=== PATIENT | male | born 1930 | race Two or more races ===

== ENCOUNTER 2017-04-05 19:45 | Inpatient (IN) | payer OTHER ==
[2017-04-05 20:47] LABS: BASO % 0.7 % (0-2.0); EOS % 2.1 % (0-4.5); HEMATOCRIT 42.9 % (35.4-49); HEMOGLOBIN 13.5 GM/dL (11.7-16.9); LYMPH % 19.6 % (8-40); MCH 24.6 pg (25.7-33.7); MCHC 31.5 g/dl (32.0-35.9); MEAN CELL VOLUME 78.1 fl (80-96); MEAN PLT VOLUME 10.2 fl (7.5-11.1); MONO % 8.7 % (3.8-10.2); NEUT % 68.9 % (42.8-82.8); PLATELET COUNT 277 K/MM3 (134-434); RBC 5.49 M/mm3 (4.00-5.60); RDW 14.5 % (11.9-15.9); WHITE BLOOD COUNT 11.7 K/mm3 (4.0-10.0)
[2017-04-05 21:04] LABS: ACTIVATED PTT 28.7 SECONDS (26.9-34.4); INR 0.97 (0.82-1.09)
[2017-04-05 21:25] LABS: ALBUMIN 3.2 g/dl (3.4-5.0); ANION GAP 7 (8-16); BILIRUBIN,TOTAL 0.2 mg/dL (0.2-1.0); BLOOD UREA NITROGEN 44 mg/dL (7-18); CALCIUM 8.5 mg/dL (8.5-10.1); CHLORIDE 103 mmol/L (98-107); CO2 27 mmol/L (21-32); CREATININE 1.8 mg/dL (0.7-1.3); GLUCOSE,RANDOM 104 mg/dL (74-106); POTASSIUM 3.9 mmol/L (3.5-5.1); SGOT/AST 35 U/L (15-37); SGPT/ALT 54 U/L (12-78); SODIUM 137 mmol/L (136-145)
[2017-04-05 21:28] LABS: ALK PHOS 72 U/L (45-117)
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
--- NOTE | 2017-04-05 22:35 | PDOC ---
Attending Attestation - HPI HPI: 04/05/17 22:48 The patient is an 86 year old male with a significant PMH of HTN, dementia, prostate cancer s/p seeding, unspecified kidney disease, and unspecified heart surgery who presents to the emergency department with 2 days of altered mental status and weakness. He also reports an episode of falling over the past 2 days. The patient is a poor historian secondary to dementia. Allergies: NKA PCP: Dr. Rae <Cesar López - Last Filed: 04/05/17 22:47> - Resident Resident Name: Slade Barry - ED Attending Attestation I have performed the following: I have examined & evaluated the patient, The case was reviewed & discussed with the resident, I agree w/resident's findings & plan, Exceptions are as noted - Physicial Exam PE: 04/06/17 05:28 *Physical Exam General Appearance: Yes: Appropriately Dressed. No: Apparent Distress, Intoxicated HEENT: positive: EOMI, LOLA, Normal ENT Inspection, Normal Voice, TMs Normal, Pharynx Normal. negative: Pale Conjunctivae, Photophobia, Scleral Icterus (R), Scleral Icterus (L) Neck: positive: Trachea midline, Normal Thyroid, Supple. negative: Tender, Rigid, Carotid bruit, Stridor, Lymphadenopathy (R), Lymphadenopathy (L), Thyromegaly Respiratory/Chest: positive: Lungs Clear, Normal Breath Sounds. negative: Chest Tender, Respiratory Distress, Accessory Muscle Use, Labored Respiration, RES, Crackles, Rales, Rhonchi, Stridor, Wheezing, Dullness Cardiovascular: positive: Regular Rhythm, Regular Rate, S1, S2. negative: Edema , JVD, Murmur, Bradycardia, Tachycardia Vascular Pulses: Dorsalis-Pedis (R): 2+, Doralis-Pedis (L): 2+ Gastrointestinal/Abdominal: positive: Normal Bowel Sounds, Flat, Soft. negative : Tender, Organomegaly, Pulsatile Mass, Increased Bowel Sounds, Decreased BS, Distended, Guarding, Rebound, Hernia, Hepatomegaly, Spleenomegaly Lymphatic: negative: Adenopathy, Tenderness Musculoskeletal: positive: Normal Inspection. negative: CVA Tenderness, Decreased Range of Motion Extremity: positive: Normal Capillary Refill, Normal Inspection, Normal Range of Motion, Pelvis Stable. negative: Tender, Pedal Edema, Swelling, Erythema Integumentary: positive: Normal Color, Dry, Warm. negative: Cyanotic, Erythema , Jaundice, Rash Neurologic: positive: editorial writer II-XII NML intact, confused. negative: EOM Palsy, Facial Droop ,Motor /Sensory Deficit - Medical Decision Making 04/06/17 05:30 pt admitted to telemetry <Billy Randhawa - Last Filed: 04/06/17 05:30>
[2017-04-05 23:21] LABS: URINE APPEARANCE TURBID; URINE BILIRUBIN NEGATIVE (NEGATIVE); URINE BLOOD 2+ (NEGATIVE); URINE COLOR DKYELLOW; URINE GLUCOSE (UA) NEGATIVE (NEGATIVE); URINE KETONE NEGATIVE (NEGATIVE); URINE NITRITE NEGATIVE (NEGATIVE); URINE UROBILINOGEN NEGATIVE mg/dL (0.2-1.0)
[2017-04-05 23:30] LABS: URINE LEUK ESTERASE 3+ (NEGATIVE); URINE PROTEIN 2+ (NEGATIVE)
[2017-04-06 00:27] LABS: YEAST MODERATE
[2017-04-06] MEDS ORDERED: CEFTRIAXONE 1 GM in DEXTROSE 5%-WATER - 50 ML IVPB ONE (00:28)
[2017-04-06] MEDS ORDERED: CEFTRIAXONE 1 GM/50 ML BAG ONE (00:42)
--- NOTE | 2017-04-06 01:55 | HP ---
CHIEF COMPLAINT: PCP: HISTORY OF PRESENT ILLNESS: This is a 86 y/o man witha past medical history of dementia, prostate cancer s/ p seeding, CABG, HTN, and unknown kidney disease. Who presents to the ED with altered mental status. Per ED record: His states that he's had increasing confusion, weakness and an episode of falling in the past two days. She states that he was admitted to [facility] for a UTI, then discharged. Patient denies chest pain, shortness of breath. Patient is confused and demonstrates short and intermediate manager memory deficits during history. Patient is not reliable. ER course was notable for: (1) Head CT- No acute intracranial hemorrhage, mass effect or midline shift. Normal Pressure Hydrocephalus (2) WBC 11.7 (3) Recent Travel: None PAST MEDICAL HISTORY: See HPi PAST SURGICAL HISTORY: CABG Social History: Smoking: Unknown Alcohol: Unknown Drugs: Methadone po Family History: Unknown Allergies No Known Allergies Allergy (Verified 04/05/17 20:02) HOME MEDICATIONS: Home Medications Medication Instructions Recorded Nebivolol HCl [Bystolic] 10 mg PO DAILY 03/18/14 Rosuvastatin Calcium [Crestor] 40 mg PO DAILY 03/18/14 Aspirin [ASA -] 81 mg PO DAILY 04/05/17 Clonazepam [Klonopin] 1 mg PO HS 04/05/17 Donepezil HCl [Aricept -] 10 mg PO DAILY 04/05/17 Escitalopram Oxalate [Lexapro -] 10 mg PO DAILY 04/05/17 Febuxostat [Uloric -] 40 mg PO DAILY 04/05/17 Hydralazine HCl [Apresoline -] 10 mg PO TID 04/05/17 Memantine HCl/Donepezil HCl 1 each PO DAILY 04/05/17 [Namzaric 14 mg-10 mg Capsule] Mirabegron [Myrbetriq] 25 mg PO DAILY 04/05/17 REVIEW OF SYSTEMS CONSTITUTIONAL: Absent: fever, chills, diaphoresis, generalized weakness, malaise, loss of appetite, weight change HEENT: Absent: rhinorrhea, nasal congestion, throat pain, throat swelling, difficulty swallowing, mouth swelling, ear pain, eye pain, visual changes, Dry mucous membranes CARDIOVASCULAR: Absent: chest pain, syncope, palpitations, irregular heart rate, lightheadedness , peripheral edema RESPIRATORY: Absent: cough, shortness of breath, dyspnea with exertion, orthopnea, wheezing, stridor, hemoptysis GASTROINTESTINAL: Absent: abdominal pain, abdominal distension, nausea, vomiting, diarrhea, constipation, melena, hematochezia GENITOURINARY: Absent: dysuria, frequency, urgency, hesitancy, hematuria, flank pain, genital pain MUSCULOSKELETAL: Absent: myalgia, arthralgia, joint swelling, back pain, neck pain SKIN: Absent: rash, itching, pallor HEMATOLOGIC/IMMUNOLOGIC: Absent: easy bleeding, easy bruising, lymphadenopathy, frequent infections ENDOCRINE: Absent: unexplained weight gain, unexplained weight loss, heat intolerance, cold intolerance NEUROLOGIC: Absent: headache, focal weakness or paresthesias, dizziness, unsteady gait, seizure, mental status changes, bladder or bowel incontinence PSYCHIATRIC: Absent: anxiety, depression, suicidal or homicidal ideation, hallucinations. PHYSICAL EXAMINATION Vital Signs - 24 hr 04/05/17 20:01 Temperature 97.7 F Pulse Rate 52 L Respiratory 18 Rate Blood Pressure 143/68 O2 Sat by Pulse 98 Oximetry (%) GENERAL: Asleep but arousable, alert to name only, in no acute distress. HEAD: Normal with no signs of trauma. EYES: Pupils equal, round and reactive to light, extraocular movements intact, sclera anicteric, conjunctiva clear. No lid lag. EARS, NOSE, THROAT: Ears normal, nares patent, oropharynx clear without exudates. Dry mucous membranes. NECK: Normal range of motion, supple without lymphadenopathy, JVD, or masses. LUNGS: Breath sounds equal, clear to auscultation bilaterally. No wheezes, and no crackles. No accessory muscle use. HEART: Regular rate and rhythm, normal S1 and S2 without murmur, rub or gallop. ABDOMEN: Soft, nontender, not distended, normoactive bowel sounds, no guarding, no rebound, no masses. No hepatomegaly or splenomegaly. MUSCULOSKELETAL: Normal range of motion at all joints. No bony deformities or tenderness. No CVA tenderness. UPPER EXTREMITIES: 2+ pulses, warm, well-perfused. No cyanosis. No clubbing. No peripheral edema. LOWER EXTREMITIES: 2+ pulses, warm, well-perfused. No calf tenderness. No peripheral edema. NEUROLOGICAL: Cranial nerves II-XII intact. Slowed speech. Gait not observed. PSYCHIATRIC: Cooperative. Good eye contact. Appropriate mood and affect. SKIN: Warm, dry, normal turgor, no rashes or lesions noted, normal capillary refill. Laboratory Results - last 24 hr 04/05/17 04/05/17 04/05/17 20:30 20:30 20:30 WBC 11.7 H RBC 5.49 Hgb 13.5 Hct 42.9 MCV 78.1 L MCH 24.6 L MCHC 31.5 L RDW 14.5 Plt Count 277 D MPV 10.2 Neutrophils % 68.9 Lymphocytes % 19.6 D Monocytes % 8.7 Eosinophils % 2.1 D Basophils % 0.7 PT with INR 11.00 INR 0.97 PTT (Actin FS) 28.7 Sodium 137 Potassium 3.9 D Chloride 103 Carbon Dioxide 27 Anion Gap 7 L BUN 44 H Creatinine 1.8 H D Creat Clearance w eGFR 36.13 Random Glucose 104 Lactic Acid Calcium 8.5 Total Bilirubin 0.2 D AST 35 D ALT 54 D Alkaline Phosphatase 72 D Creatine Kinase 120 Troponin I 0.02 Total Protein 7.0 Albumin 3.2 L D Urine Color Urine Appearance Urine pH Ur Specific Welch Urine Protein Urine Glucose (UA) Urine Ketones Urine Blood Urine Nitrite Urine Bilirubin Urine Urobilinogen Ur Leukocyte Esterase Urine WBC (Auto) Urine RBC (Auto) Urine Yeast Blood Type Antibody Screen 04/05/17 04/05/17 04/05/17 20:30 20:30 22:37 WBC RBC Hgb Hct MCV MCH MCHC RDW Plt Count MPV Neutrophils % Lymphocytes % Monocytes % Eosinophils % Basophils % PT with INR INR PTT (Actin FS) Sodium Potassium Chloride Carbon Dioxide Anion Gap BUN Creatinine Creat Clearance w eGFR Random Glucose Lactic Acid 1.0 Calcium Total Bilirubin AST ALT Alkaline Phosphatase Creatine Kinase Troponin I Total Protein Albumin Urine Color Dkyellow Urine Appearance Turbid Urine pH 5.0 Ur Specific Welch 1.011 Urine Protein 2+ H Urine Glucose (UA) Negative Urine Ketones Negative Urine Blood 2+ H Urine Nitrite Negative Urine Bilirubin Negative Urine Urobilinogen Negative Ur Leukocyte Esterase 3+ H Urine WBC (Auto) 1727 Urine RBC (Auto) 52 Urine Yeast Moderate Blood Type Cancelled Antibody Screen Cancelled Radiology Studies: Head CT- report read by Lourdes Chavez DO: No acute intracranial hemorrhage, mass effect or midline shift. Age related volume loss with moderately severe microvascular ischemic changes. Moderate ventriculomegaly with temporal horn dilatation, bowing of the corpus callosum and effacement of the cortical sulci to vertex. 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 Altered Mental Status 2. UTI 3. GARRISON 4. Unsteady Gait Admit to Telemetry for Metabolic Encephalopathy secondary to UTI vs NPH UTI- Continue Ceftriaxone, Urine Culture-pending Appreciate Neurology Consult, Neurosurgery Consult for NPH Gentle IVF Monitor INOs Repeat CBC, BMP in am Continue home meds except BP meds secondary to hypotension Fall Precautions Consider SNF or STR PT DVT Prophylaxis- SCDs, Heparin SQ Problem List - Problem (1) Acute metabolic encephalopathy Code(s): G93.41 - METABOLIC ENCEPHALOPATHY (2) Altered mental status Code(s): R41.82 - ALTERED MENTAL STATUS, UNSPECIFIED (3) GARRISON (acute kidney injury) Code(s): N17.9 - ACUTE KIDNEY FAILURE, UNSPECIFIED (4) UTI (urinary tract infection) Code(s): N39.0 - URINARY TRACT INFECTION, SITE NOT SPECIFIED (5) Unsteady gait Code(s): R26.81 - UNSTEADINESS ON FEET (6) Hypertension Code(s): I10 - ESSENTIAL (PRIMARY) HYPERTENSION (7) DVT prophylaxis Code(s): [id number] - Visit type - Emergency Visit Emergency Visit: Yes ED Registration Date: 04/05/17 Care time: The patient presented to the Emergency Department on the above date and was hospitalized for further evaluation of their emergent condition. - New Patient This patient is new to me today: Yes Date on this admission: 04/06/17 - Critical Care Critical Care patient: No
[2017-04-06] MEDS ORDERED: SODIUM CHLORIDE 1,000 ML IV SCH (02:15)
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
[2017-04-06] MEDS ORDERED: ASPIRIN 81 MG CHEWABLE TABLETS PO SCH (10:00)
[2017-04-06] MEDS ORDERED: DONEPEZIL HCL 10 MG TABLET (FP) PO SCH (10:00)
--- NOTE | 2017-04-06 10:01 | EKG ---
Test Reason : Blood Pressure : / mmHG Vent. 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
[2017-04-06 11:56] VITALS: BMI 27.1
[2017-04-06] MEDS ORDERED: DIVALPROEX SODIUM 125 MG SPRINKLE CAPS (FP) PO SCH (12:00)
--- NOTE | 2017-04-06 12:07 | PN ---
Progress Note, Physician Chief Complaint: AWAKE ALERT X 2 BEDSIDE WAS AT [facility] THEN [facility] TREATED FOR UTI THERE UNSTEADY GAIT AGGRESSIVE BEHAVIOR - Current Medication List Current Medications: Active Medications Aspirin (Asa -) 81 mg PO DAILY [facility] Last Admin: 04/06/17 09:47 Dose: 81 mg Donepezil HCl (Aricept -) 10 mg PO DAILY [facility] Last Admin: 04/06/17 09:47 Dose: 10 mg CEFTRIAXONE 1 G/50 ML PREMIX (Ceftriaxone 1 Gm-D5w Bag) 50 mls @ 100 mls/hr IVPB DAILY [facility] Sodium Chloride (Normal Saline -) 1,000 mls @ 42 mls/hr IV ASDIR [facility] Last Admin: 04/06/17 02:37 Dose: 42 mls/hr Olanzapine (Zyprexa -) 5 mg PO BID [facility] Rosuvastatin Calcium (Crestor -) 40 mg PO HS [facility] - Objective Vital Signs: Vital Signs Temperature 98.9 F 04/06/17 11:39 Pulse Rate 60 04/06/17 11:39 Respiratory Rate 20 04/06/17 11:39 Blood Pressure 148/68 04/06/17 11:39 O2 Sat by Pulse Oximetry (%) 98 04/06/17 09:00 Constitutional: Yes: Mild Distress Eyes: Yes: WNL HENT: Yes: WNL Neck: Yes: WNL Cardiovascular: Yes: Pulse Irregular Respiratory: Yes: WNL Gastrointestinal: Yes: WNL Genitourinary: Yes: Incontinence Musculoskeletal: Yes: Muscle Weakness Extremities: Yes: WNL Edema: No Peripheral Pulses WNL: Yes Integumentary: Yes: WNL Wound/Incision: Yes: Clean/Dry Neurological: Yes: Confusion, Unsteady Gait ...Motor Strength: LLE, RLE Psychiatric: Yes: Agitated Labs: CBC, BMP 04/05/17 20:30 04/05/17 20:30 INR, PTT INR 0.97 (0.82-1.09) 04/05/17 20:30 Problem List - Problems (1) GARRISON (acute kidney injury) Code(s): N17.9 - ACUTE KIDNEY FAILURE, UNSPECIFIED (2) Acute metabolic encephalopathy Code(s): G93.41 - METABOLIC ENCEPHALOPATHY (3) Altered mental status Code(s): R41.82 - ALTERED MENTAL STATUS, UNSPECIFIED (4) DVT prophylaxis Code(s): [id number] - (5) Hypertension Code(s): I10 - ESSENTIAL (PRIMARY) HYPERTENSION Qualifiers: Hypertension type: essential hypertension Qualified Code(s): I10 - Essential (primary) hypertension (6) UTI (urinary tract infection) Code(s): N39.0 - URINARY TRACT INFECTION, SITE NOT SPECIFIED Qualifiers: Urinary tract infection type: acute cystitis (7) Unsteady gait Code(s): R26.81 - UNSTEADINESS ON FEET (8) Weakness Code(s): R53.1 - WEAKNESS Assessment/Plan ID CONSULT CHRONIC VS ACUTE CYSTITIS CHECK CULTURES PSYCHIATRY EVAL WILL PHARMACY FOR EXACT MED LIST FALL PRECAUTIONS NEURO EVAL FOR NPH
[2017-04-06] MEDS ORDERED: TAMSULOSIN HCL 0.4 MG CAP.ER.24H (FP) PO ONE (12:12)
[2017-04-06] MEDS: OLANZapine 5 MG TABLET PO SCH ×2 (12:23→23:27)
--- NOTE | 2017-04-06 14:10 | CONSULT ---
Consult Consult Specialty:: Nephrology Reason for Consultation:: CKD - History of Present Illness Chief Complaint: s/p fall History of Present Illness: Pt is an 86 year old male with pmhx of dementia, CKD, PKD, prostate cancer, HTN and CAD who presents to the ER after fall and altered mental status. I saw him in an outside hospital last weekend and at that time his creatinine was about 1.7 to 1.8. He was being treated for a UTI at the time. I was called to evaluate him for elevated creatinine. He is awake and appears comfortable. His is at bedside and assisted with history. - History Source History Provided By: Family Member, Medical Record - Past Medical History Cardio/Vascular: Yes: HTN, Hyperlipdemia Renal/: Yes: Renal Inusuff Rheumatology: Yes: Gout - Past Surgical History Additional Surgical History: prostate surgery - Alcohol/Substance Use Hx Alcohol Use: No - Smoking History Smoking history: Former smoker Have you smoked in the past 12 months: No If you are a former smoker, when did you quit?: 1966 - Social History Usual Living Arrangement: With Spouse Home Medications - Allergies Allergies/Adverse Reactions: Allergies Allergy/AdvReac Type Severity Reaction Status Date / Time No Known Allergies Allergy Verified 04/05/17 20:02 - Home Medications Home Medications: Ambulatory Orders Nebivolol HCl [Bystolic] 10 mg PO DAILY 03/18/14 Rosuvastatin Calcium [Crestor] 40 mg PO DAILY 03/18/14 Aspirin [ASA -] 81 mg PO DAILY 04/05/17 Clonazepam [Klonopin] 1 mg PO HS 04/05/17 Donepezil HCl [Aricept -] 10 mg PO DAILY 04/05/17 Escitalopram Oxalate [Lexapro -] 10 mg PO DAILY 04/05/17 Febuxostat [Uloric -] 40 mg PO DAILY 04/05/17 Hydralazine HCl [Apresoline -] 10 mg PO BID 04/05/17 Memantine HCl/Donepezil HCl [Namzaric 14 mg-10 mg Capsule] 1 each PO DAILY 04/05 Mirabegron [Myrbetriq] 25 mg PO DAILY 04/05/17 Family Disease History - Family Disease History Family History: Denies Review of Systems - Review of Systems Constitutional: reports: No Symptoms Eyes: reports: No Symptoms HENT: reports: No Symptoms Neck: reports: No Symptoms Cardiovascular: reports: No Symptoms Respiratory: reports: No Symptoms Gastrointestinal: reports: No Symptoms Genitourinary: reports: No Symptoms Musculoskeletal: reports: No Symptoms Integumentary: reports: No Symptoms Neurological: reports: No Symptoms, Seizure Hematology/Lymphatic: reports: No Symptoms Physical Exam Vital Signs: Vital Signs Temperature 98.9 F 04/06/17 11:39 Pulse Rate 60 04/06/17 11:39 Respiratory Rate 20 04/06/17 11:39 Blood Pressure 148/68 04/06/17 11:39 O2 Sat by Pulse Oximetry (%) 98 04/06/17 09:00 Constitutional: Yes: Calm Eyes: Yes: Conjunctiva Clear HENT: Yes: Atraumatic Neck: Yes: Supple Cardiovascular: Yes: S1, S2 Respiratory: Yes: CTA Bilaterally Gastrointestinal: Yes: Soft Renal/: Yes: WNL Musculoskeletal: Yes: Muscle Weakness Edema: No Neurological: Yes: Oriented, Pre-Existing Deficit Labs: CBC, BMP 04/05/17 20:30 04/05/17 20:30 Laboratory Tests 04/05/17 04/05/17 04/05/17 20:30 20:30 22:37 WBC 11.7 H Hgb 13.5 Sodium 137 Potassium 3.9 D Chloride 103 BUN 44 H Creatinine 1.8 H D Urine Protein 2+ H Urine Blood 2+ H Ur Leukocyte Esterase 3+ H Imaging - Results Cat Scan: Report Reviewed Problem List - Problems (1) CKD (chronic kidney disease) Code(s): N18.9 - CHRONIC KIDNEY DISEASE, UNSPECIFIED (2) NPH (normal pressure hydrocephalus) Code(s): G91.2 - (IDIOPATHIC) NORMAL PRESSURE HYDROCEPHALUS (3) UTI (urinary tract infection) Code(s): N39.0 - URINARY TRACT INFECTION, SITE NOT SPECIFIED Qualifiers: Urinary tract infection type: acute cystitis (4) Unsteady gait Code(s): R26.81 - UNSTEADINESS ON FEET (5) Weakness Code(s): R53.1 - WEAKNESS Assessment/Plan Current Medications Generic Name Dose Route Start Last Admin Trade Name Freq PRN Reason Stop Dose Admin Aspirin 81 mg 04/06/17 10:00 04/06/17 09:47 Asa - PO 81 mg DAILY MITCH Administration Donepezil HCl 10 mg 04/06/17 10:00 04/06/17 09:47 Aricept - PO 10 mg DAILY MITCH Administration CEFTRIAXONE 1 G/50 ML PREMIX 50 mls @ 100 mls/hr 04/07/17 10:00 Ceftriaxone 1 Gm-D5w Bag IVPB DAILY MITCH Sodium Chloride 1,000 mls @ 42 mls/hr 04/06/17 02:15 04/06/17 02:37 Normal Saline - IV 42 mls/hr ASDIR MITCH Administration Metoclopramide HCl 10 mg 04/06/17 16:30 Reglan - PO ACHS MITCH Nebivolol 10 mg 04/06/17 12:15 Bystolic - PO DAILY MITCH Olanzapine 5 mg 04/06/17 11:00 04/06/17 12:23 Zyprexa - PO 5 mg BID MITCH Administration Pantoprazole Sodium 40 mg 04/06/17 12:15 Protonix - PO DAILY MITCH Rosuvastatin Calcium 20 mg 04/06/17 22:00 Crestor - PO HS MITCH Tamsulosin HCl 0.4 mg 04/07/17 08:30 Flomax - PO DAILY@0830 MITCH Impression 1. CKD 2. PKD 3. UTI 4. HTN 5. weakness 6. s/p fall 7. prostate cancer 8. dementia 9. hyperlipidemia Plan - renal function is stable - follow cultures - cont abx - repeat labs in am - cont fluids - discussed with medical attending Dr Parra
--- NOTE | 2017-04-06 14:27 | CONSULT ---
Consultation: REQUESTING PROVIDER: CONSULT REQUEST: We have been asked to medically evaluate this patient for UTI. HISTORY OF PRESENT ILLNESS: 86 y/o M with PMH CABG (2007), unspecified kidney disease, prostate CA s/p seeding, dementia, HTN, and HLD, who presented to the ED s/p fall two days ago. As per , pt was in rehab 4-5x over the last two years after repetitive falls and episodes of emesis. Most recently, on March 26, pt was with his aid after showering and was found by his lying on the floor for approximately one hour. During fall, pt had witnessed head trauma, and a RUE bruise. Son and grandson helped him up and pt was subsequently taken to [facility]. He was discharged two days ago, and fell twice more, thus bringing him into the hospital. Pt and denied any fever, chills, or changes in urinary or bowel habits during this time. However, endorsed headache, 2-3 episodes of NBNB emesis during this time, and productive yellow sputum (without blood) over the past two weeks. While in the ED, pt was afebrile, with elevated BUN/Cr 44/1.8. Head CT negative for hemorrhage but revealed moderate ventriculomegaly with temporal horn dilation consistent with normal pressure hydrocephalus. Pt received ceftriaxone in ED, and is currently continued on it. ID Team consulted for UTI. REVIEW OF SYSTEMS: CONSTITUTIONAL: Absent: fever, chills, diaphoresis, generalized weakness, malaise, loss of appetite, weight change HEENT: Absent: rhinorrhea, nasal congestion, throat pain, throat swelling, difficulty swallowing, mouth swelling, ear pain, eye pain, visual changes CARDIOVASCULAR: Absent: chest pain, syncope, palpitations, irregular heart rate, lightheadedness , peripheral edema RESPIRATORY:+ cough Absent: cough, shortness of breath, dyspnea with exertion, orthopnea, wheezing, stridor, hemoptysis GASTROINTESTINAL: Absent: abdominal pain, abdominal distension, nausea, vomiting, diarrhea, constipation, melena, hematochezia GENITOURINARY: Absent: dysuria, frequency, urgency, hesitancy, hematuria, flank pain, genital pain MUSCULOSKELETAL: Absent: myalgia, arthralgia, joint swelling, back pain, neck pain SKIN: Absent: rash, itching, pallor HEMATOLOGIC/IMMUNOLOGIC: Absent: easy bleeding, easy bruising, lymphadenopathy, frequent infections ENDOCRINE: Absent: unexplained weight gain, unexplained weight loss, heat intolerance, cold intolerance NEUROLOGIC: Absent: headache, focal weakness or paresthesias, dizziness, unsteady gait, seizure, mental status changes, bladder or bowel incontinence PSYCHIATRIC: Absent: anxiety, depression, suicidal or homicidal ideation, hallucinations. PHYSICAL EXAMINATION Vital Signs 04/06/17 11:39 Temperature 98.9 F Pulse Rate 60 Pulse Rate [ Right Apical] Respiratory 20 Rate Blood Pressure 148/68 Blood Pressure [Right Arm] O2 Sat by Pulse Oximetry (%) GENERAL: Sitting up in bed, coughing intermittently. AAOx1 (to self). In no acute distress HEAD: Normal with no signs of trauma. EYES: Pupils equal, round and reactive to light, extraocular movements intact, sclera anicteric, conjunctiva clear. NECK: Normal range of motion, supple. +L JVD LUNGS: Breath sounds equal, clear to auscultation bilaterally. No wheezes, and no crackles. No accessory muscle use. HEART: Regular rate and rhythm, normal S1 and S2 without murmur, rub or gallop. ABDOMEN: Soft, nontender, not distended, normoactive bowel sounds, no guarding, no rebound LOWER EXTREMITIES: 2+ dorsalis pedis pulses, warm, well-perfused. No calf tenderness. No peripheral edema. NEUROLOGICAL: Cranial nerves II-XII appear to be grossly intact. PSYCH: appears mildly confused Laboratory Tests 04/05/17 04/05/17 04/05/17 20:30 20:30 22:37 WBC 11.7 H Hgb 13.5 Hct 42.9 Plt Count 277 D Sodium 137 Potassium 3.9 D Chloride 103 Carbon Dioxide 27 BUN 44 H Creatinine 1.8 H D Random Glucose 104 AST 35 D ALT 54 D Alkaline Phosphatase 72 D Urine Color Dkyellow Urine Appearance Turbid Urine Protein 2+ H Urine Blood 2+ H Ur Leukocyte Esterase 3+ H Urine WBC (Auto) 1727 Microbiology -Urine cx: pending -Blood cx: pending Active Medications Generic Name Dose Route Start Last Admin Trade Name Freq PRN Reason Stop Dose Admin Aspirin 81 mg 04/06/17 10:00 04/06/17 09:47 Asa - PO 81 mg DAILY MITCH Administration Donepezil HCl 10 mg 04/06/17 10:00 04/06/17 09:47 Aricept - PO 10 mg DAILY MITCH Administration CEFTRIAXONE 1 G/50 ML PREMIX 50 mls @ 100 mls/hr 04/07/17 10:00 Ceftriaxone 1 Gm-D5w Bag IVPB DAILY MITCH Sodium Chloride 1,000 mls @ 42 mls/hr 04/06/17 02:15 04/06/17 02:37 Normal Saline - IV 42 mls/hr ASDIR MITCH Administration Metoclopramide HCl 10 mg 04/06/17 16:30 Reglan - PO ACHS MITCH Nebivolol 10 mg 04/06/17 12:15 Bystolic - PO DAILY MITCH Olanzapine 5 mg 04/06/17 11:00 04/06/17 12:23 Zyprexa - PO 5 mg BID MITCH Administration Pantoprazole Sodium 40 mg 04/06/17 12:15 Protonix - PO DAILY MITCH Rosuvastatin Calcium 20 mg 04/06/17 22:00 Crestor - PO HS MITCH Tamsulosin HCl 0.4 mg 04/07/17 08:30 Flomax - PO DAILY@0830 [facility] ASSESSMENT/PLAN: #UTI #NPH -afebrile, with leukocytosis 11.7 -UA: 2+ protein, blood, leuk esterase 3+, 1727 WBCs -received ceftriaxone 1gm IVPB in ED -continued on ceftriaxone 1 gm IVPB (Today is Day1) to empirically cover E.coli , gram -'s -f/u blood and urine cx. will adjust abx after if needed Thank you Paola Carmichael MD PGY-1 ID Team Dispo: We will continue to follow the patient. Thank you for this consultative opportunity. Visit type - Emergency Visit Emergency Visit: No - New Patient This patient is new to me today: Yes Date on this admission: 04/06/17 - Critical Care Critical Care patient: No
--- NOTE | 2017-04-06 14:39 | PN ---
Teaching Attending Note Name of Resident: Paola Carmichael ATTENDING PHYSICIAN STATEMENT I saw and evaluated the patient. I reviewed the resident's note and discussed the case with the resident. I agree with the resident's findings and plan as documented. SUBJECTIVE: alert liliam dementia- unreliable historian OBJECTIVE: Vital Signs Period Temp Pulse Resp BP Sys/Handy Pulse Ox Last 24 Hr 97.7 F-98.9 F 52-60 16-20 131-152/55-68 98-98 cor-rrr lungs clear abd soft,nt ext no edema CBC, BMP 04/05/17 20:30 04/05/17 20:30 cultures pending ASSESSMENT AND PLAN: frequent falls- r/o NPH uti- continue ceftriaxone, f/u cultures Problem List - Problems (1) UTI (urinary tract infection) Code(s): N39.0 - URINARY TRACT INFECTION, SITE NOT SPECIFIED Qualifiers: Urinary tract infection type: acute cystitis (2) NPH (normal pressure hydrocephalus) Code(s): G91.2 - (IDIOPATHIC) NORMAL PRESSURE HYDROCEPHALUS
[2017-04-06] MEDS: PANTOPRAZOLE 40 MG TABLET (FP) PO SCH (17:03)
[2017-04-06] MEDS: NEBIVOLOL 10 MG TABLET (FP) PO SCH (17:03)
[2017-04-06] MEDS: METOCLOPRAMIDE HCL 10 MG TABLET (FP) PO SCH ×2 (17:07→23:27)
--- NOTE | 2017-04-06 17:45 | CON.NEURO ---
Consult - Past Medical History Cardio/Vascular: Yes: HTN, Hyperlipdemia Renal/: Yes: Renal Inusuff Rheumatology: Yes: Gout - Past Surgical History Additional Surgical History: prostate surgery - Alcohol/Substance Use Hx Alcohol Use: No - Smoking History Smoking history: Former smoker Have you smoked in the past 12 months: No If you are a former smoker, when did you quit?: 1966 - Social History Usual Living Arrangement: With Spouse Home Medications - Allergies Allergies/Adverse Reactions: Allergies Allergy/AdvReac Type Severity Reaction Status Date / Time No Known Allergies Allergy Verified 04/05/17 20:02 - Home Medications Home Medications: Ambulatory Orders Nebivolol HCl [Bystolic] 10 mg PO DAILY 03/18/14 Rosuvastatin Calcium [Crestor] 40 mg PO DAILY 03/18/14 Aspirin [ASA -] 81 mg PO DAILY 04/05/17 Clonazepam [Klonopin] 1 mg PO HS 04/05/17 Donepezil HCl [Aricept -] 10 mg PO DAILY 04/05/17 Escitalopram Oxalate [Lexapro -] 10 mg PO DAILY 04/05/17 Febuxostat [Uloric -] 40 mg PO DAILY 04/05/17 Hydralazine HCl [Apresoline -] 10 mg PO BID 04/05/17 Memantine HCl/Donepezil HCl [Namzaric 14 mg-10 mg Capsule] 1 each PO DAILY 04/05 Mirabegron [Myrbetriq] 25 mg PO DAILY 04/05/17 Physical Exam-Neuro Vital Signs: Vital Signs Temperature 98.9 F 04/06/17 11:39 Pulse Rate 60 04/06/17 11:39 Respiratory Rate 20 04/06/17 11:39 Blood Pressure 148/68 04/06/17 11:39 O2 Sat by Pulse Oximetry (%) 98 04/06/17 09:00 Labs: CBC, BMP 04/05/17 20:30 04/05/17 20:30 INR, PTT INR 0.97 (0.82-1.09) 04/05/17 20:30 Assessment/Plan cc Possible NPH HPI 86 Year old male history of dementia, prostate cancer, cabg, htn . He was brought to hospital for increasing confusion, and agitation. Patient has been diagnosed with dmenetia and also have work up and evaluated for NPH at [facility]. He did even has spinal tap and later decided not to pursue shunting procedure. Patient is admitted for uti and on abx. He did have ct head and showed large ventricle and suspected to have NPH. PMH as above FH,ROS,SH reviewed in chart NKDA HOME MEDICATIONS: Home Medications Medication Instructions Recorded Nebivolol HCl [Bystolic] 10 mg PO DAILY 03/18/14 Rosuvastatin Calcium [Crestor] 40 mg PO DAILY 03/18/14 Aspirin [ASA -] 81 mg PO DAILY 04/05/17 Clonazepam [Klonopin] 1 mg PO HS 04/05/17 Donepezil HCl [Aricept -] 10 mg PO DAILY 04/05/17 Escitalopram Oxalate [Lexapro -] 10 mg PO DAILY 04/05/17 Febuxostat [Uloric -] 40 mg PO DAILY 04/05/17 Hydralazine HCl [Apresoline -] 10 mg PO TID 04/05/17 Memantine HCl/Donepezil HCl 1 each PO DAILY 04/05/17 [Namzaric 14 mg-10 mg Capsule] Mirabegron [Myrbetriq] 25 mg PO DAILY 04/05/17 Neurological Examination Alert and follow command, oriented x 1, not able to tell what date and where he is , he gets agitated in between conversation. CN eomi, pupils is reactive No motor weakness, moving all extremity Sensation is normal Ct reviewed and showed there is large ventricle and cortical atrophy Assessment-- 86 year old man history of Dementia with large ventricles, He has been evaluated for NPH in past and was decided not to pursue wtih shunt. In my opinion he would not benefit from shunt procedure Plan add namenda as has not been started - Psychiatriast is on case for managing agitatio, continue zyprexa - supportive treatment Thank for consult Francisco Huston MD
[2017-04-06] MEDS ORDERED: ROSUVASTATIN CA 20 MG TABLET (FP) PO SCH ×2 (22:00)
[2017-04-06] MEDS ORDERED: ROSUVASTATIN CA 10 MG TABLET (FP) ONE (23:21)
[2017-04-06] MEDS: MEMANTINE HCL 5 MG TABLET (UD) PO SCH (23:27)
[2017-04-06] MEDS: ROSUVASTATIN CA 20 MG TABLET (FP) PO SCH (23:27)
[2017-04-07] MEDS: SODIUM CHLORIDE 1,000 ML IV SCH (05:00)
[2017-04-07] MEDS: METOCLOPRAMIDE HCL 10 MG TABLET (FP) PO SCH ×4 (06:38→22:46)
[2017-04-07] MEDS ORDERED: CEFTRIAXONE 1 G/50 ML PREMIX 50 ML IVPB SCH (10:00)
[2017-04-07 10:03] LABS: ANION GAP 8 (8-16); BLOOD UREA NITROGEN 32 mg/dL (7-18); CALCIUM 8.1 mg/dL (8.5-10.1); CHLORIDE 112 mmol/L (98-107); CHOLESTEROL 98 mg/dL (50-200); CO2 22 mmol/L (21-32); CREATININE 1.6 mg/dL (0.7-1.3); GLUCOSE,RANDOM 143 mg/dL (74-106); HDL CHOLESTEROL 24 mg/dL (40-60); LDL CHOLESTEROL (ONLY SJRH) 50 mg/dL (5-100); POTASSIUM 4.4 mmol/L (3.5-5.1); SODIUM 142 mmol/L (136-145); TRIGLYCERIDES 145 mg/dL (35-160)
[2017-04-07] MEDS ORDERED: PT OWN MED DRAWER 7, Y5N ONE ×2 (10:45→22:40)
[2017-04-07] MEDS: DONEPEZIL HCL 10 MG TABLET (FP) PO SCH (10:53)
[2017-04-07] MEDS: PANTOPRAZOLE 40 MG TABLET (FP) PO SCH (10:53)
[2017-04-07] MEDS: CEFTRIAXONE 1 G/50 ML PREMIX 50 ML IVPB SCH (10:53)
[2017-04-07] MEDS: MEMANTINE HCL 5 MG TABLET (UD) PO SCH ×2 (10:54→22:46)
[2017-04-07] MEDS: TAMSULOSIN HCL 0.4 MG CAP.ER.24H (FP) PO SCH (10:54)
[2017-04-07] MEDS: ASPIRIN 81 MG CHEWABLE TABLETS PO SCH (10:54)
--- NOTE | 2017-04-07 11:35 | PN ---
Progress Note (short form) - Note Progress Note: RENAL Pt is known to me admitted now s/p fall being evaluated for possible [employer] shunt Pt denies complaints Last Vital Signs Temp Pulse Resp BP Pulse Ox 98.5 F 66 20 154/78 98 04/07/17 06:00 04/07/17 06:00 04/07/17 06:00 04/07/17 06:00 04/06/17 21:00 lungs clear cvs s1s2 rr abd soft ext no edema neuro a+o, responds toquestions CBC, BMP 04/05/17 20:30 04/07/17 09:50 Current Medications Generic Name Dose Route Start Last Admin Trade Name Marla PRN Reason Stop Dose Admin Aspirin 81 mg 04/07/17 10:00 04/07/17 10:54 Asa - PO 81 mg DAILY MITCH Administration Donepezil HCl 10 mg 04/07/17 10:00 04/07/17 10:53 Aricept - PO 10 mg DAILY MITCH Administration CEFTRIAXONE 1 G/50 ML PREMIX 50 mls @ 100 mls/hr 04/07/17 10:00 04/07/17 10: 53 Ceftriaxone 1 Gm-D5w Bag IVPB 100 mls/hr DAILY MITCH Administration Sodium Chloride 1,000 mls @ 42 mls/hr 04/06/17 21:00 04/07/17 05:00 Normal Saline - IV 42 mls/hr ASDIR MITCH Administration Memantine 5 mg 04/06/17 22:00 04/07/17 10:54 Namenda - PO 5 mg BID MITCH Administration Metoclopramide HCl 10 mg 04/06/17 16:30 04/07/17 10:54 Reglan - PO 10 mg ACHS MITCH Administration Nebivolol 10 mg 04/06/17 12:15 04/06/17 17:03 Bystolic - PO Not Given DAILY MITCH Olanzapine 5 mg 04/06/17 11:00 04/06/17 23:27 Zyprexa - PO 5 mg BID MITCH Administration Pantoprazole Sodium 40 mg 04/06/17 12:15 04/07/17 10:53 Protonix - PO 40 mg DAILY MITCH Administration Rosuvastatin Calcium 20 mg 04/06/17 22:00 04/06/17 23:27 Crestor - PO 20 mg HS MITCH Administration Tamsulosin HCl 0.4 mg 04/07/17 08:30 04/07/17 10:54 Flomax - PO 0.4 mg DAILY@0830 MITCH Administration Impression 1. CKD- stable kidney function 2. PKD 3. UTI 4. HTN 5. weakness 6. s/p fall- r/o NPH 7. prostate cancer 8. dementia 9. hyperlipidemia Plan possible [employer] shunt per neurosurgery orthostatics donepezil use with caution given rbbb? MV
[2017-04-07] MEDS: NEBIVOLOL 10 MG TABLET (FP) PO SCH (11:54)
[2017-04-07] MEDS: OLANZapine 5 MG TABLET PO SCH ×2 (11:54→22:46)
--- NOTE | 2017-04-07 12:22 | PN ---
Progress Note, Physician Chief Complaint: AWAKE MORE ALERT TODAY APPETITE GOOD - Current Medication List Current Medications: Active Medications Aspirin (Asa -) 81 mg PO DAILY [facility] Last Admin: 04/07/17 10:54 Dose: 81 mg Donepezil HCl (Aricept -) 10 mg PO DAILY [facility] Last Admin: 04/07/17 10:53 Dose: 10 mg CEFTRIAXONE 1 G/50 ML PREMIX (Ceftriaxone 1 Gm-D5w Bag) 50 mls @ 100 mls/hr IVPB DAILY [facility] Last Admin: 04/07/17 10:53 Dose: 100 mls/hr Sodium Chloride (Normal Saline -) 1,000 mls @ 42 mls/hr IV ASDIR [facility] Last Admin: 04/07/17 05:00 Dose: 42 mls/hr Memantine (Namenda -) 5 mg PO BID [facility] Last Admin: 04/07/17 10:54 Dose: 5 mg Metoclopramide HCl (Reglan -) 10 mg PO ACHS [facility] Last Admin: 04/07/17 10:54 Dose: 10 mg Nebivolol (Bystolic -) 10 mg PO DAILY [facility] Last Admin: 04/07/17 11:54 Dose: 10 mg Olanzapine (Zyprexa -) 5 mg PO BID [facility] Last Admin: 04/07/17 11:54 Dose: 5 mg Pantoprazole Sodium (Protonix -) 40 mg PO DAILY [facility] Last Admin: 04/07/17 10:53 Dose: 40 mg Rosuvastatin Calcium (Crestor -) 20 mg PO HS [facility] Last Admin: 04/06/17 23:27 Dose: 20 mg Tamsulosin HCl (Flomax -) 0.4 mg PO DAILY@0830 [facility] Last Admin: 04/07/17 10:54 Dose: 0.4 mg - Objective Vital Signs: Vital Signs Temperature 98.5 F 04/07/17 06:00 Pulse Rate 66 04/07/17 06:00 Respiratory Rate 20 04/07/17 06:00 Blood Pressure 154/78 04/07/17 06:00 O2 Sat by Pulse Oximetry (%) 98 04/06/17 21:00 Constitutional: Yes: No Distress Eyes: Yes: WNL HENT: Yes: WNL Neck: Yes: WNL Cardiovascular: Yes: Pulse Irregular Respiratory: Yes: WNL Gastrointestinal: Yes: WNL Genitourinary: Yes: WNL Musculoskeletal: Yes: Muscle Weakness Edema: No Peripheral Pulses WNL: Yes Integumentary: Yes: WNL Wound/Incision: Yes: Clean/Dry Neurological: Yes: Other ...Motor Strength: LLE, RLE Psychiatric: Yes: Other Labs: CBC, BMP 04/05/17 20:30 04/07/17 09:50 INR, PTT INR 0.97 (0.82-1.09) 04/05/17 20:30 Problem List - Problems (1) GARRISON (acute kidney injury) Code(s): N17.9 - ACUTE KIDNEY FAILURE, UNSPECIFIED (2) Acute metabolic encephalopathy Code(s): G93.41 - METABOLIC ENCEPHALOPATHY (3) Altered mental status Code(s): R41.82 - ALTERED MENTAL STATUS, UNSPECIFIED (4) DVT prophylaxis Code(s): [id number] - (5) Hypertension Code(s): I10 - ESSENTIAL (PRIMARY) HYPERTENSION Qualifiers: Hypertension type: essential hypertension Qualified Code(s): I10 - Essential (primary) hypertension (6) UTI (urinary tract infection) Code(s): N39.0 - URINARY TRACT INFECTION, SITE NOT SPECIFIED Qualifiers: Urinary tract infection type: acute cystitis (7) Unsteady gait Code(s): R26.81 - UNSTEADINESS ON FEET (8) Weakness Code(s): R53.1 - WEAKNESS Assessment/Plan ID CONSULT CHRONIC VS ACUTE CYSTITIS CHECK CULTURES PSYCHIATRY EVAL WILL PHARMACY FOR EXACT MED LIST FALL PRECAUTIONS NEURO EVAL FOR NPH
[2017-04-07] MEDS ORDERED: ROSUVASTATIN CA 10 MG TABLET (FP) ONE (22:38)
[2017-04-07] MEDS: ROSUVASTATIN CA 20 MG TABLET (FP) PO SCH (22:46)
[2017-04-08] MEDS: METOCLOPRAMIDE HCL 10 MG TABLET (FP) PO SCH ×4 (06:33→22:10)
[2017-04-08] MEDS: SODIUM CHLORIDE 1,000 ML IV SCH (06:33)
[2017-04-08] MEDS: OLANZapine 5 MG TABLET PO SCH ×2 (10:43→22:10)
[2017-04-08] MEDS: NEBIVOLOL 10 MG TABLET (FP) PO SCH (10:43)
[2017-04-08] MEDS ORDERED: PT OWN MED DRAWER 7, Y5N ONE (10:49)
[2017-04-08] MEDS: TAMSULOSIN HCL 0.4 MG CAP.ER.24H (FP) PO SCH (10:57)
[2017-04-08] MEDS: MEMANTINE HCL 5 MG TABLET (UD) PO SCH ×2 (10:57→22:10)
[2017-04-08] MEDS: PANTOPRAZOLE 40 MG TABLET (FP) PO SCH (10:57)
[2017-04-08] MEDS: DONEPEZIL HCL 10 MG TABLET (FP) PO SCH (10:57)
[2017-04-08] MEDS: CEFTRIAXONE 1 G/50 ML PREMIX 50 ML IVPB SCH (10:58)
[2017-04-08] MEDS: ASPIRIN 81 MG CHEWABLE TABLETS PO SCH (10:58)
--- NOTE | 2017-04-08 12:30 | PN ---
Progress Note, Physician Chief Complaint: AWAKE CONFUSED EATING WELL - Current Medication List Current Medications: Active Medications Aspirin (Asa -) 81 mg PO DAILY [facility] Last Admin: 04/08/17 10:58 Dose: 81 mg Donepezil HCl (Aricept -) 10 mg PO DAILY [facility] Last Admin: 04/08/17 10:57 Dose: 10 mg CEFTRIAXONE 1 G/50 ML PREMIX (Ceftriaxone 1 Gm-D5w Bag) 50 mls @ 100 mls/hr IVPB DAILY [facility] Last Admin: 04/08/17 10:58 Dose: 100 mls/hr Sodium Chloride (Normal Saline -) 1,000 mls @ 42 mls/hr IV ASDIR [facility] Last Admin: 04/08/17 06:33 Dose: 42 mls/hr Memantine (Namenda -) 5 mg PO BID [facility] Last Admin: 04/08/17 10:57 Dose: 5 mg Metoclopramide HCl (Reglan -) 10 mg PO ACHS [facility] Last Admin: 04/08/17 10:58 Dose: 10 mg Nebivolol (Bystolic -) 10 mg PO DAILY [facility] Last Admin: 04/08/17 10:43 Dose: 10 mg Olanzapine (Zyprexa -) 5 mg PO BID [facility] Last Admin: 04/08/17 10:43 Dose: 5 mg Pantoprazole Sodium (Protonix -) 40 mg PO DAILY [facility] Last Admin: 04/08/17 10:57 Dose: 40 mg Rosuvastatin Calcium (Crestor -) 20 mg PO HS [facility] Last Admin: 04/07/17 22:46 Dose: 20 mg Tamsulosin HCl (Flomax -) 0.4 mg PO DAILY@0830 [facility] Last Admin: 04/08/17 10:57 Dose: 0.4 mg - Objective Vital Signs: Vital Signs Temperature 98.3 F 04/08/17 06:00 Pulse Rate 62 04/08/17 06:00 Respiratory Rate 20 04/08/17 06:00 Blood Pressure 140/67 04/08/17 06:00 O2 Sat by Pulse Oximetry (%) 98 04/07/17 21:00 Constitutional: Yes: No Distress Eyes: Yes: WNL HENT: Yes: WNL Neck: Yes: WNL Cardiovascular: Yes: Pulse Irregular Respiratory: Yes: WNL Gastrointestinal: Yes: WNL Genitourinary: Yes: Incontinence Musculoskeletal: Yes: Muscle Weakness Extremities: Yes: WNL Edema: No Peripheral Pulses WNL: Yes Integumentary: Yes: WNL Wound/Incision: Yes: Clean/Dry Neurological: Yes: Confusion ...Motor Strength: LLE, RLE Psychiatric: Yes: Other Labs: CBC, BMP 04/05/17 20:30 04/07/17 09:50 INR, PTT INR 0.97 (0.82-1.09) 04/05/17 20:30 Problem List - Problems (1) GARRISON (acute kidney injury) Code(s): N17.9 - ACUTE KIDNEY FAILURE, UNSPECIFIED (2) Acute metabolic encephalopathy Code(s): G93.41 - METABOLIC ENCEPHALOPATHY (3) Altered mental status Code(s): R41.82 - ALTERED MENTAL STATUS, UNSPECIFIED (4) DVT prophylaxis Code(s): [id number] - (5) Hypertension Code(s): I10 - ESSENTIAL (PRIMARY) HYPERTENSION Qualifiers: Hypertension type: essential hypertension Qualified Code(s): I10 - Essential (primary) hypertension (6) UTI (urinary tract infection) Code(s): N39.0 - URINARY TRACT INFECTION, SITE NOT SPECIFIED Qualifiers: Urinary tract infection type: acute cystitis (7) Unsteady gait Code(s): R26.81 - UNSTEADINESS ON FEET (8) Weakness Code(s): R53.1 - WEAKNESS (9) Dementia Code(s): F03.90 - UNSPECIFIED DEMENTIA WITHOUT BEHAVIORAL DISTURBANCE Assessment/Plan CONTINUE ABX FOR UTI D/W PMD DR LEON HE FEELS THAT HIS DEMENTIA AND AMS HAVE BEEN CHRONIC PAST 3-4 YEARS AND THAT A WORKUP FOR NPH IS NOT A BAD IDEA HOWEVER DOES NOT EXPECT A CHANGE IN HIS MENTAL STATUS. WILL D/W FAMILY AND DR CHANCE BEARD ABOUT THE PROCEDURE FALL RISKS
[2017-04-08] MEDS ORDERED: ROSUVASTATIN CA 10 MG TABLET (FP) ONE (22:02)
[2017-04-08] MEDS: ROSUVASTATIN CA 20 MG TABLET (FP) PO SCH (22:10)
[2017-04-09] MEDS: METOCLOPRAMIDE HCL 10 MG TABLET (FP) PO SCH ×4 (06:38→21:17)
[2017-04-09] MEDS: SODIUM CHLORIDE 1,000 ML IV SCH (06:39)
--- NOTE | 2017-04-09 08:32 | CONSULT ---
Consult - text type - Consultation Consultation Note: Neurosurgery Consultation Patient is an 86 year old male with multiple medical problems who was admitted with an altered mental status. I have seen him on several days and he has a fluctuating level of interaction ranging from finding him asleep, to appropriately conversational to aggressive and argumentative with the nursing staff during some elements of his care. I spoke with his and son and also reviewed some records which were brought in regarding his past care and evaluations at other institutions. I also noted Dr. Francisco Huston's consultation and the opinions of Dr. Simeon. 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 He has gait ataxia as well as urinary incontinence. CT of the head shows fairly impressive ventriculomegally disproportionate to his atrophy. This scenario strongly suggests Normal Pressure Hydrocephalus. Indeed, the patient has been evaluated for this in the past. One trial of CSF withdrawl gave no significant benefit and another, which was done with continuous CSF diversion using a spinal drain over three days, demonstrated temporary benefit for one week. In review of the outside records, the patient is noted to have "severe" Lumbar stenosis which may blunt the response to CSF diversion, especially via solitary Lumbar Puncture. In light of his progressive decline with no clear alternate diagnoses or therapeutic options, I feel that NPH must remain in the differential diagnosis since it has not been clearly excluded as a likely diagnosis. The patient may not benefit from Lumbar CSF diversion, even with a Lumbar catheter which would require several days in the ICU and has small, but real risks associated with it (subdural hematoma/meningitis). PROGRAM SUPPORT CLERK shunting is also associated with these, and other risks, but use of a programmable valve to prevent overdrainage and a controlled system which is placed in the OR will mitigate these potential risks. If the shunt doesn't afford benefit, it could be effectively turned off at the bedside or in the office with no need for an additional procedure. Also, this could be done without a stay in the ICU and he could be discharged 1-2 days afterwards. If another diagnosis is made which would preclude CSF diversion as a reasonable diagnostic/therapeutic effort, then it might be reasonable to pursue it, however , given his clear decline and progression of his dementia and gait difficulties , it would appear that something should be done if it is possible to alleviate the suffering of the patient and the family. I am willing to discuss the potential role of PROGRAM SUPPORT CLERK shunting with other caregivers and plan to share my thoughts with the family. (I saw him every day over the weekend, but kept missing the family).
[2017-04-09 10:35] LABS: HEMATOCRIT 39.5 % (35.4-49); HEMOGLOBIN 12.2 GM/dL (11.7-16.9); MCH 24.4 pg (25.7-33.7); MEAN CELL VOLUME 78.6 fl (80-96); MEAN PLT VOLUME 9.9 fl (7.5-11.1); PLATELET COUNT 192 K/MM3 (134-434); RBC 5.02 M/mm3 (4.00-5.60); RDW 14.3 % (11.9-15.9); WHITE BLOOD COUNT 9.4 K/mm3 (4.0-10.0)
[2017-04-09] MEDS: MEMANTINE HCL 5 MG TABLET (UD) PO SCH ×2 (10:36→21:17)
[2017-04-09] MEDS: TAMSULOSIN HCL 0.4 MG CAP.ER.24H (FP) PO SCH (10:36)
[2017-04-09] MEDS: DONEPEZIL HCL 10 MG TABLET (FP) PO SCH (10:36)
[2017-04-09] MEDS: PANTOPRAZOLE 40 MG TABLET (FP) PO SCH (10:36)
[2017-04-09] MEDS: CEFTRIAXONE 1 G/50 ML PREMIX 50 ML IVPB SCH (10:36)
[2017-04-09] MEDS: ASPIRIN 81 MG CHEWABLE TABLETS PO SCH (10:36)
[2017-04-09] MEDS ORDERED: PT OWN MED DRAWER 7, Y5N ONE ×2 (10:39→20:59)
[2017-04-09] MEDS: NEBIVOLOL 10 MG TABLET (FP) PO SCH (10:40)
[2017-04-09] MEDS: OLANZapine 5 MG TABLET PO SCH ×2 (10:40→21:17)
[2017-04-09 11:05] LABS: ANION GAP 7 (8-16); BLOOD UREA NITROGEN 28 mg/dL (7-18); CALCIUM 8.8 mg/dL (8.5-10.1); CHLORIDE 109 mmol/L (98-107); CO2 25 mmol/L (21-32); CREATININE 1.5 mg/dL (0.7-1.3); GLUCOSE,RANDOM 90 mg/dL (74-106); POTASSIUM 4.6 mmol/L (3.5-5.1); SODIUM 141 mmol/L (136-145)
--- NOTE | 2017-04-09 12:43 | PN ---
Progress Note (short form) - Note Progress Note: awake and alert no fevers Vital Signs Period Temp Pulse Resp BP Sys/Handy Pulse Ox Last 24 Hr 98.2 F-98.5 F 57-67 18-20 105-158/55-81 95-97 cor-rrr lungs clear abd soft,nt ext no edema CBC, BMP 04/09/17 10:12 04/09/17 10:12 Microbiology 04/05/17 20:47 Blood - Peripheral Venous Blood Culture - Preliminary NO GROWTH OBTAINED AFTER 72 HOURS, INCUBATION TO CONTINUE FOR 2 DAYS. 04/05/17 20:30 Blood - Peripheral Venous Blood Culture - Preliminary NO GROWTH OBTAINED AFTER 72 HOURS, INCUBATION TO CONTINUE FOR 2 DAYS. 04/05/17 23:30 Urine - Urine Clean Catch Urine Culture - Final NO GROWTH OBTAINED a/p d/c antibiotics-cultures are negative d/w renal- recentl treatment at [facility] for uti history ckd at baseline mental status evaluation in progress please call back if needed Problem List - Problems (1) UTI (urinary tract infection) Code(s): N39.0 - URINARY TRACT INFECTION, SITE NOT SPECIFIED Qualifiers: Urinary tract infection type: acute cystitis (2) NPH (normal pressure hydrocephalus) Code(s): G91.2 - (IDIOPATHIC) NORMAL PRESSURE HYDROCEPHALUS
--- NOTE | 2017-04-09 13:51 | PN ---
Progress Note (short form) - Note Progress Note: cc Possible NPH HPI 86 Year old male history of dementia, prostate cancer, cabg, htn . He was brought to hospital for increasing confusion, and agitation. Patient has been diagnosed with dmenetia and also have work up and evaluated for NPH at [facility]. He did even has spinal tap and later decided not to pursue shunting procedure. Patient is admitted for uti and on abx. He continue to remain intermittently agitated and confused H Neurological Examination Alert and follow command, oriented x 1, not able to tell what date and where he is , CN eomi, pupils is reactive No motor weakness, moving all extremity , right leg seems to be moving less as he complain of right hip pain Sensation is normal Ct reviewed and showed there is large ventricle and cortical atrophy Assessment-- 86 year old man history of Dementia with large ventricles, for possible NPH Plan continue current level of supportive care - Dr Byers saw him for neurosurgery and suggested he may benefit from shunt surgery. Family is waiting for Dr Byers to speak to them regarding surgical procedure. Family to decide about surgical procedure . - I gave my card, I advise them to follow up with me once he get discahrge Thank for consult Francisco Huston MD
--- NOTE | 2017-04-09 14:02 | PN ---
Progress Note, Physician History of Present Illness: Pt seen and examined at bedside. He appears comfortable. - Current Medication List Current Medications: Active Medications Aspirin (Asa -) 81 mg PO DAILY [facility] Last Admin: 04/09/17 10:36 Dose: 81 mg Donepezil HCl (Aricept -) 10 mg PO DAILY [facility] Last Admin: 04/09/17 10:36 Dose: 10 mg Sodium Chloride (Normal Saline -) 1,000 mls @ 42 mls/hr IV ASDIR [facility] Last Admin: 04/09/17 06:39 Dose: 42 mls/hr Memantine (Namenda -) 5 mg PO BID [facility] Last Admin: 04/09/17 10:36 Dose: 5 mg Metoclopramide HCl (Reglan -) 10 mg PO ACHS [facility] Last Admin: 04/09/17 10:36 Dose: 10 mg Nebivolol (Bystolic -) 10 mg PO DAILY [facility] Last Admin: 04/09/17 10:40 Dose: 10 mg Olanzapine (Zyprexa -) 5 mg PO BID [facility] Last Admin: 04/09/17 10:40 Dose: 5 mg Pantoprazole Sodium (Protonix -) 40 mg PO DAILY [facility] Last Admin: 04/09/17 10:36 Dose: 40 mg Rosuvastatin Calcium (Crestor -) 20 mg PO HS [facility] Last Admin: 04/08/17 22:10 Dose: 20 mg Tamsulosin HCl (Flomax -) 0.4 mg PO DAILY@0830 [facility] Last Admin: 04/09/17 10:36 Dose: 0.4 mg - Objective Vital Signs: Vital Signs Temperature 98.4 F 04/09/17 10:48 Pulse Rate 67 04/09/17 10:48 Respiratory Rate 20 04/09/17 10:48 Blood Pressure 158/81 04/09/17 10:48 O2 Sat by Pulse Oximetry (%) 95 04/09/17 09:00 Constitutional: Yes: Calm Eyes: Yes: Conjunctiva Clear HENT: Yes: Atraumatic Neck: Yes: Supple Cardiovascular: Yes: S1, S2 Respiratory: Yes: CTA Bilaterally Gastrointestinal: Yes: Soft Genitourinary: Yes: WNL Musculoskeletal: Yes: WNL Edema: No Neurological: Yes: Oriented, Pre-Existing Deficit Labs: CBC, BMP 04/09/17 10:12 04/09/17 10:12 INR, PTT INR 0.97 (0.82-1.09) 04/05/17 20:30 Problem List - Problems (1) CKD (chronic kidney disease) Code(s): N18.9 - CHRONIC KIDNEY DISEASE, UNSPECIFIED (2) NPH (normal pressure hydrocephalus) Code(s): G91.2 - (IDIOPATHIC) NORMAL PRESSURE HYDROCEPHALUS (3) UTI (urinary tract infection) Code(s): N39.0 - URINARY TRACT INFECTION, SITE NOT SPECIFIED Qualifiers: Urinary tract infection type: acute cystitis (4) Unsteady gait Code(s): R26.81 - UNSTEADINESS ON FEET (5) Weakness Code(s): R53.1 - WEAKNESS Assessment/Plan Current Medications Generic Name Dose Route Start Last Admin Trade Name Freq PRN Reason Stop Dose Admin Aspirin 81 mg 04/07/17 10:00 04/09/17 10:36 Asa - PO 81 mg DAILY MITCH Administration Donepezil HCl 10 mg 04/07/17 10:00 04/09/17 10:36 Aricept - PO 10 mg DAILY MITCH Administration Sodium Chloride 1,000 mls @ 42 mls/hr 04/06/17 21:00 04/09/17 06:39 Normal Saline - IV 42 mls/hr ASDIR MITCH Administration Memantine 5 mg 04/06/17 22:00 04/09/17 10:36 Namenda - PO 5 mg BID MITCH Administration Metoclopramide HCl 10 mg 04/06/17 16:30 04/09/17 10:36 Reglan - PO 10 mg ACHS MITCH Administration Nebivolol 10 mg 04/06/17 12:15 04/09/17 10:40 Bystolic - PO 10 mg DAILY MITCH Administration Olanzapine 5 mg 04/06/17 11:00 04/09/17 10:40 Zyprexa - PO 5 mg BID MITCH Administration Pantoprazole Sodium 40 mg 04/06/17 12:15 04/09/17 10:36 Protonix - PO 40 mg DAILY MITCH Administration Rosuvastatin Calcium 20 mg 04/06/17 22:00 04/08/17 22:10 Crestor - PO 20 mg HS MITCH Administration Tamsulosin HCl 0.4 mg 04/07/17 08:30 04/09/17 10:36 Flomax - PO 0.4 mg DAILY@0830 MITCH Administration Impression 1. CKD 2. PKD 3. UTI 4. HTN 5. weakness 6. s/p fall 7. prostate cancer 8. dementia 9. hyperlipidemia Plan - creatinine is stable - cultures are negative - will stop fluids - pt has good PO intake - discussed with Dr Parra
--- NOTE | 2017-04-09 15:18 | PN ---
Progress Note, Physician Chief Complaint: AWAKE COMMUNICATING WELL NAD TOLERATING PO BUT COUGHING - Current Medication List Current Medications: Active Medications Aspirin (Asa -) 81 mg PO DAILY [facility] Last Admin: 04/09/17 10:36 Dose: 81 mg Donepezil HCl (Aricept -) 10 mg PO DAILY [facility] Last Admin: 04/09/17 10:36 Dose: 10 mg Memantine (Namenda -) 5 mg PO BID [facility] Last Admin: 04/09/17 10:36 Dose: 5 mg Metoclopramide HCl (Reglan -) 10 mg PO ACHS [facility] Last Admin: 04/09/17 10:36 Dose: 10 mg Nebivolol (Bystolic -) 10 mg PO DAILY [facility] Last Admin: 04/09/17 10:40 Dose: 10 mg Olanzapine (Zyprexa -) 5 mg PO BID [facility] Last Admin: 04/09/17 10:40 Dose: 5 mg Pantoprazole Sodium (Protonix -) 40 mg PO DAILY [facility] Last Admin: 04/09/17 10:36 Dose: 40 mg Rosuvastatin Calcium (Crestor -) 20 mg PO HS [facility] Last Admin: 04/08/17 22:10 Dose: 20 mg Tamsulosin HCl (Flomax -) 0.4 mg PO DAILY@0830 [facility] Last Admin: 04/09/17 10:36 Dose: 0.4 mg - Objective Vital Signs: Vital Signs Temperature 98.1 F 04/09/17 14:36 Pulse Rate 63 04/09/17 14:36 Respiratory Rate 20 04/09/17 10:48 Blood Pressure 133/57 04/09/17 14:36 O2 Sat by Pulse Oximetry (%) 95 04/09/17 09:00 Constitutional: Yes: No Distress Eyes: Yes: WNL HENT: Yes: WNL Neck: Yes: WNL Cardiovascular: Yes: Pulse Irregular Respiratory: Yes: Cough Gastrointestinal: Yes: WNL Genitourinary: Yes: Incontinence Musculoskeletal: Yes: Muscle Weakness Extremities: Yes: WNL Edema: No Peripheral Pulses WNL: Yes Integumentary: Yes: WNL Wound/Incision: Yes: Clean/Dry Neurological: Yes: Pre-Existing Deficit ...Motor Strength: LLE, RLE Psychiatric: Yes: Agitated Labs: CBC, BMP 04/09/17 10:12 04/09/17 10:12 INR, PTT INR 0.97 (0.82-1.09) 04/05/17 20:30 Problem List - Problems (1) GARRISON (acute kidney injury) Code(s): N17.9 - ACUTE KIDNEY FAILURE, UNSPECIFIED (2) Acute metabolic encephalopathy Code(s): G93.41 - METABOLIC ENCEPHALOPATHY (3) Altered mental status Code(s): R41.82 - ALTERED MENTAL STATUS, UNSPECIFIED (4) DVT prophylaxis Code(s): [id number] - (5) Hypertension Code(s): I10 - ESSENTIAL (PRIMARY) HYPERTENSION Qualifiers: Hypertension type: essential hypertension Qualified Code(s): I10 - Essential (primary) hypertension (6) UTI (urinary tract infection) Code(s): N39.0 - URINARY TRACT INFECTION, SITE NOT SPECIFIED Qualifiers: Urinary tract infection type: acute cystitis (7) Unsteady gait Code(s): R26.81 - UNSTEADINESS ON FEET (8) Weakness Code(s): R53.1 - WEAKNESS (9) Dementia Code(s): F03.90 - UNSPECIFIED DEMENTIA WITHOUT BEHAVIORAL DISTURBANCE Assessment/Plan URINE CULTURES NEGATIVE ABX STOPPED DISCUSSED WITH FAMILY AT LENGTH ABOUT SHUNT PLACEMENT FOR NPH DR BEARD SPENT MORE THAN AMPLE TIME DISCUSSING THE PROCEDURE AND HAS COMMUNICATING WITH ME DAILY I FEEL THE SHUNT IS WORTH A TRY WITH THE WORSENING DEMENTIA AND ATAXIA HOWEVER, THE SON HAS ASKED FOR A SECOND OPNION AND I HAVE REACHED OUT TO DR SUMMER SOTO NEUROSURGERY FOR CONSULT. IF SUMMER SOTO AGREES WE WILL REACH BACK OUT TO DR BEARD FOR SHUNT PLACEMENT AND DRAIN IN THE ICU WITH CLOSE MONITORING PATIENT HAS BEEN COUGHING OFTEN, ORDERING SWALLOW EVAL AND MODIFIED BARIUM
[2017-04-09] MEDS ORDERED: ROSUVASTATIN CA 10 MG TABLET (FP) ONE (20:58)
[2017-04-09] MEDS: ROSUVASTATIN CA 20 MG TABLET (FP) PO SCH (21:17)
[2017-04-10] MEDS: METOCLOPRAMIDE HCL 10 MG TABLET (FP) PO SCH ×4 (06:43→21:35)
--- NOTE | 2017-04-10 08:05 | PN ---
Progress Note (short form) - Note Progress Note: NEUROSURGERY SECOND OPINION DICTATED Chart reviewed Imaging reviewed Pt examined 86 yo with h/o dementia, prostate cancer s/p seeding, CABG, HTN was brought to ED with altered mental status. stated that he's had increasing confusion, weakness and falling for the past couple days prior to admission. Pt was reportedly admitted to [facility] for a UTI recently. Pt reportedly was evaluated for possible NPH at [place] a couple years ago including an LP. Presently c/o R knee pain. Denies H/A, N/V, diplopia. Has had gait difficulty for some time. Denies urinary incontinence. No C/P or SOB. PE: 98.8, VSS HEENT- NC/AT; Neck- supple; Cor- Regular; Lungs- CTA B; Abd- mildly obese, benign; Ext- R anterior knee tenderness, no sign of DVT A/A//Ox1 "2011" CN- grossly intact; Motor- 4+-5/5 UE/LE; Sensation- intact LT; DTR- hyporeflexic , toes upgoing B; Gait-not tested for safety reasons WBC 11.7 to 9.4; UA 1727 WBC with 3+ leukocyte esterase Head CT 2008- moderate cerebral atrophy, moderate ventricular dilatation of 3rd , 4th, lateral ventricles, moderate periventricular small vessel disease, mildly dilated temporal horns Brain MRI 2015- moderate atrophy , moderate small vessel dz, moderate ventricular dilatation, no acute ischemia, no obvious mass lesion Head CT 2017- similar findings as MRI, moderate atrophy slightly more marked than 2009, moderate to marked periventricular small vessel dz; slightly more prominent temporal horns LS spine MRI - multilevel DDD; grade I L4-5 spondylolisthesis with moderate lateral recess stenosis but only mild central stenosis; moderate facet hypertrophy; heterogenous marrow changes most c/w OA 1) Cerebral atrophy/ventricular dilatation/periventricular vascular disease 2) Recent UTI and ongoing cystitis 3) HTN/CAD 4) Obesity, borderline hyperglycemia with Hgb A1C of 6.1 5) H/o prostate CA Generally/commonly acceptable confirmatory studies for NPH include diagnostic LP drainage or nuclear medicine cisternogram; and not elective external ventricular drainage Pt only has mild central canal stenosis which would not have prevented an effective prior LP Pt's degree of cerebral atrophy on CT/MRI will increase risks of post-shunt SDH/ hygroma Doubt long-term efficacy of shunt given CT has not changed appreciably in 8 years and there is no periventricular edema/transependymal CSF flow observed and there are other concurrent reasons for his mental and physical decline ( ongoing cystitis; periventricular vascular disease and age-related dementia; L4- 5 spondylolisthesis/mild central stenosis) The potential risks outweigh the potential benefits at this time F/u PSA level if not recently done, given h/o prostate CA Plan/action per pt/family/PMD The above provided as a second opinion only
--- NOTE | 2017-04-10 09:37 | CONS ---
DATE OF SECOND OPINION: DATE OF DICTATION: 04/10/2016 REQUESTING PHYSICIAN: Natalya Rae MD CONSULTING: Slade Soto MD, Neurosurgery. CHIEF COMPLAINT: Ventricular dilatation. HISTORY OF PRESENT ILLNESS: The patient is an 86-year-old right-handed male with history of dementia, prostate CA, hypertension, coronary artery disease, bypass surgery, who was admitted for increasing confusion and agitation. Patient was reportedly diagnosed with dementia and has undergone evaluation for NPH at [facility] a couple years ago. He did undergo a lumbar puncture, and his response to the lumbar puncture was not known to me. However, it is my understanding that surgery was not recommended. The patient had recently been admitted to [facility] with urinary tract infection, with included agitation and confusion. He was subsequently discharged after being treated with antibiotic. The patient was brought in to the emergency room for his increasing agitation and confusion. Patient denies headache, nausea/vomiting, visual changes, chest pain or dyspnea. PAST MEDICAL HISTORY: Significant for hypertension, coronary artery disease, prostate cancer, dementia. CURRENT MEDICATIONS: Include Zyprexa, Flomax, Bystolic, Namenda, Crestor, baby aspirin, Aricept, Reglan, and Protonix. ALLERGIES: There is no known drug allergy. FAMILY HISTORY: Noncontributory except for some spinal disease. SOCIAL HISTORY: He does not smoke or drink. He lives at home. He is retired. REVIEW OF SYSTEMS: Otherwise negative for other major constitutional, head and neck, cardiovascular, pulmonary, gastrointestinal, genitourinary, endocrinological, neurological, and psychological problems except for the above. PHYSICAL EXAMINATION: Vital Signs: Temperature is 98.8. Blood pressure is 142/70 with pulse rate of 64. O2 saturation is 95% on room air. General: The patient is in bed. He was startled when he was awakened at 8:00 in the morning. HEENT: Examination shows him to be normocephalic, atraumatic, anicteric. Neck: Supple with no carotid bruit. Coronary: Examination demonstrated a regular rhythm. Chest scar is healed. Lungs: Clear bilaterally. Abdomen: Benign. He is somewhat obese. Extremities: Examination shows no obvious signs of DVT. He has tenderness of the right knee anteriorly which he attributes to arthritis. Neurologic: He is awake and alert and oriented x1. He thought it was 2011. He does not know the name of the hospital. Cranial nerve examination is intact 2-12. Motor examination shows 4+ to 5/5 strength in the bilateral upper and lower extremities without drift. Sensory examination is intact to light touch. Deep tendon reflexes are hyporeflexic throughout. He does have upgoing toes. Gait is not tested for safety reasons. LABORATORY: Examination showed initial white blood cell count 11.7. Current white blood cell count is 9.4. Hemoglobin is 12.2. Platelet count is 192,000. INR is 0.97, and PTT is 28.7. Serum sodium is 141, and potassium is 4.6. BUN is 28 and creatinine 1.5. Estimated GFR initially was 36. Random glucose was 90. Hemoglobin A1c 6.1. Urinalysis shows 1727 WBC and 52 RBCs. There is 3+ leukocyte esterase. Urine culture and blood culture are both negative. CT scan of the head from 2008 was reviewed, and it demonstrated moderate cerebral atrophy with moderate ventricular dilatation including mild dilatation of the temporal horn. There is moderate periventricular small vessel disease. There was no fracture or acute blood. An MRI from 2015 demonstrated similar findings except for slightly more prominent lateral ventricle 7 years later. There is now [id number] periventricular small vessel disease. The cerebral atrophy is also slightly more prominent than 2009. There was no significant mass. CT scan of the head from this admission demonstrated moderate cerebral atrophy which is slightly more marked than 2009. There is [id number] periventricular small vessel disease. Temporal horn was slightly more noticeable than 2009 as well. There is no acute bleed. MRI of the lumbar spine from 2014 and 2016 were reviewed. There is moderate degenerative disk disease at multiple levels. Moderate facet hypertrophy is also noted. Grade 1 spondylolisthesis is noted at L4-5 which results in moderate lateral recess and mild central stenosis at this level. There is heterogeneous signal of the vertebral bodies most consistent with osteoarthritis. IMPRESSION: 1. Ventricular dilatation/cerebral atrophy with associated periventricular small vessel disease. 2. Hypertension/coronary artery disease. 3. Mild obesity with borderline hemoglobin A1c of 6.1. 4. L4-5 spondylolisthesis with mild central stenosis and moderate lateral recess narrowing at L4-5. 5. UTI/cystitis. RECOMMENDATIONS: The patient presents with chronic mental deterioration in the recent years. He has a history of prostate CA and some baseline urinary symptoms. His gait has been impaired for quite some time. The patient had a recent urinary tract infection and still has elevated leukocyte esterase and WBCs in his urine. Urine culture was negative as he was previously treated already. Further infectious disease evaluation and treatment is recommended. In regards to his imaging studies, there is no significant progression of the brain imaging study since 2008. The ventricular dilatation is slightly more marked, but so is his cerebral atrophy. The patient has reportedly undergone an LP previously for evaluation for NPH. The response to that is unknown at this time. Even though he has mild lumbar spine L4-5 central stenosis, that certainly would not have interfered with the access to the lumbar CSF cistern to perform an effective LP previously. The commonly and generally accessible confirmatory studies for NPH include diagnostic lumbar puncture for CSF removal or nuclear medicine cisternogram. It does not generally include external ventricular drainage. Further, the patient has significant cerebral atrophy and periventricular vascular disease, as well as ongoing UTI/cystitis and lumbar disease which could complicate his clinical picture. These other factors can all potentially affect his gait, urinary pattern, and mental status. The atrophy will also increase the risk of subdural hematoma/subdural hygroma formation after ventricular CSF drainage or CSF shunt placement. Given the multiple confounding DIRECTOR VIDEO factors and the recent urinary infection/cystitis, I do not highly recommend any invasive diagnostic or surgical procedure as the potential risks would outweigh the potential benefits. PSA is recommended if not done recently. Future plan and treatment is up to the patient/family/PMD and this consultation is provided as a neurosurgery second opinion only. SLADE SOTO M.D. WILLIAM/[id number] [facility] MEDICAL CENTERJennie
[2017-04-10] MEDS: ASPIRIN 81 MG CHEWABLE TABLETS PO SCH (10:18)
[2017-04-10] MEDS: MEMANTINE HCL 5 MG TABLET (UD) PO SCH ×2 (10:18→21:35)
[2017-04-10] MEDS: DONEPEZIL HCL 10 MG TABLET (FP) PO SCH (10:18)
[2017-04-10] MEDS: PANTOPRAZOLE 40 MG TABLET (FP) PO SCH (10:18)
[2017-04-10] MEDS: TAMSULOSIN HCL 0.4 MG CAP.ER.24H (FP) PO SCH (10:18)
[2017-04-10] MEDS: NEBIVOLOL 10 MG TABLET (FP) PO SCH (10:19)
[2017-04-10] MEDS: OLANZapine 5 MG TABLET PO SCH ×2 (10:19→21:35)
--- NOTE | 2017-04-10 11:04 | PN ---
Progress Note, Physician Chief Complaint: sitting out in hallway no distress - Current Medication List Current Medications: Active Medications Aspirin (Asa -) 81 mg PO DAILY [facility] Last Admin: 04/10/17 10:18 Dose: 81 mg Donepezil HCl (Aricept -) 10 mg PO DAILY [facility] Last Admin: 04/10/17 10:18 Dose: 10 mg Memantine (Namenda -) 5 mg PO BID [facility] Last Admin: 04/10/17 10:18 Dose: 5 mg Metoclopramide HCl (Reglan -) 10 mg PO ACHS [facility] Last Admin: 04/10/17 10:18 Dose: 10 mg Nebivolol (Bystolic -) 10 mg PO DAILY [facility] Last Admin: 04/10/17 10:19 Dose: 10 mg Olanzapine (Zyprexa -) 5 mg PO BID [facility] Last Admin: 04/10/17 10:19 Dose: 5 mg Pantoprazole Sodium (Protonix -) 40 mg PO DAILY [facility] Last Admin: 04/10/17 10:18 Dose: 40 mg Rosuvastatin Calcium (Crestor -) 20 mg PO HS [facility] Last Admin: 04/09/17 21:17 Dose: 20 mg Tamsulosin HCl (Flomax -) 0.4 mg PO DAILY@0830 [facility] Last Admin: 04/10/17 10:18 Dose: 0.4 mg - Objective Vital Signs: Vital Signs Temperature 98.8 F 04/10/17 06:03 Pulse Rate 64 04/10/17 06:03 Respiratory Rate 20 04/10/17 06:03 Blood Pressure 142/70 04/10/17 06:03 O2 Sat by Pulse Oximetry (%) 95 04/09/17 21:00 Constitutional: Yes: Calm Cardiovascular: Yes: Regular Rate and Rhythm, S1, S2 Respiratory: Yes: CTA Bilaterally Gastrointestinal: Yes: Normal Bowel Sounds, Soft Edema: No Neurological: Yes: Alert Labs: CBC, BMP 04/09/17 10:12 04/09/17 10:12 INR, PTT INR 0.97 (0.82-1.09) 04/05/17 20:30 Problem List - Problems (1) NPH (normal pressure hydrocephalus) Assessment/Plan: appreicate Dr carpenter consult he does not feel shunt needs to be placed risks outweigh the benefits Code(s): G91.2 - (IDIOPATHIC) NORMAL PRESSURE HYDROCEPHALUS (2) Dementia Assessment/Plan: nameda and laracept Code(s): F03.90 - UNSPECIFIED DEMENTIA WITHOUT BEHAVIORAL DISTURBANCE (3) Coughing Assessment/Plan: swallow eval and MBS Code(s): R05 - COUGH (4) CKD (chronic kidney disease) Assessment/Plan: creatinine improved to 1.5 Code(s): N18.9 - CHRONIC KIDNEY DISEASE, UNSPECIFIED (5) Weakness Assessment/Plan: PT eval Code(s): R53.1 - WEAKNESS
--- NOTE | 2017-04-10 11:50 | CONSULT ---
Admitting History and Physical - Primary Care Physician PCP: Natalya Rae - Admission History of Present Illness: Selected Entries 04/09/17 04/09/17 04/09/17 07:14 10:48 10:52 Breakfast 100% Lunch Supper Temperature 98.2 F 98.4 F 04/09/17 04/09/17 04/09/17 14:36 18:00 23:00 Breakfast Lunch 50% Supper 75% Temperature 98.1 F 98 F 04/10/17 04/10/17 06:03 11:00 Breakfast 100% Lunch Supper Temperature 98.8 F Laboratory Tests 04/09/17 10:12 WBC 9.4 On reg diet/thin liquids. Noted to cough frequently mealtime. History Source: Medical Record Limitations to Obtaining History: Clinical Condition - Past Medical History Cardiovascular: Yes: HTN, Hyperlipdemia Renal/: Yes: Renal Inusuff Rheumatology: Yes: Gout - Smoking History Smoking history: Former smoker Have you smoked in the past 12 months: No If you are a former smoker, when did you quit?: 1967 - Alcohol/Substance Use Hx Alcohol Use: No History - Admission Reason For Visit: UTI - Diagnostics X-ray: Report Reviewed CT Scan: Report Reviewed MRI: Report Reviewed - General Mental Status: Awake and Alert, Able to Follow Commands, Vague, Intermittently Confused (Oriented to self) Attention: Intact Ability to Follow Directions: Fair Head/Neck Control: Good - Hearing Hearing: Normal Speech Evaluation - Communication Primary Language: YI Communication: Yes: Simple Responses Oral Expression Ability: Yes: No Impairment - Speech Production Able to Make Needs Known: Yes: WNL Intelligibility: Yes: WNL - Speech Characteristics Voice Loudness: Normal Voice Pitch: Yes: Normal Voice Phonatory-based Quality: Yes: Normal Speech Pattern: Normal Speech Clarity: < 100% Nasal Resonance: Normal Articulation: Yes: Precise - Language/Auditory Comprehension Follows: Yes: 1 Stage Simple Commands Observation: Able to respond to yes/no queries: Yes, Yes/No Confusion: No, Comprehends Conversational Speech: Yes - Language/Verbal Expression Able to Respond to Simple Queries: Yes: WNL Able to Communicate Wants and Needs: Yes: WNL Functional Communication Status: Yes: WNL - Swallow Evaluation/Bedside Assessment Current Nutritional Intake: Regular, Thin Liquids Oral Secretions: Yes: WFL Dentition: Yes: Adequate Facial Symmetry at Rest: Symmetrical Facial Symmetry on Retraction: Symmetrical Facial Movement: Controlled Against Resistance Opening: Normal Against Resistance Closing: Normal Pucker Lips: Normal Smile: Normal Lingual Movement: Normal, Symmetric Lingual Speed of Movement: Normal Lingual Movement Strgth Against Opposition: Normal Lingual Movement Characteristics: Normal Velopharyngeal Movement: Normal Laryngeal Elevation: WFL Rate of Intake: WFL Bolus Size: WFL Labial Seal: WFL Chewing: WFL Oral Prep Time: WFL A-P Transit: WFL Pocketing: None Timing of Swallow: WFL Coughing/Throat Clear: No (Coughed on water with pills) Change in Voice: No Recommendations - Speech Evaluation, Impression/Plan Impression: Coughed on water with pills. Bedside evaluation (-). Reported by staff to be coughing with liquids. - [facility]position [facility] - Dysphagia Impressions/Plan Dysphagia Impressions: Risk of Aspiration, Ongoing Evaluation *Silent aspiration: cannot be R/O at bedside Recommendations: Modified Barium Swallow (Ordered by PMD)
--- NOTE | 2017-04-10 14:53 | PN ---
Progress Note, Physician History of Present Illness: Pt sen and examined at bedside. He is awake and appears comfortable. He denies dysuria. - Current Medication List Current Medications: Active Medications Aspirin (Asa -) 81 mg PO DAILY [facility] Last Admin: 04/10/17 10:18 Dose: 81 mg Donepezil HCl (Aricept -) 10 mg PO DAILY [facility] Last Admin: 04/10/17 10:18 Dose: 10 mg Memantine (Namenda -) 5 mg PO BID [facility] Last Admin: 04/10/17 10:18 Dose: 5 mg Metoclopramide HCl (Reglan -) 10 mg PO ACHS [facility] Last Admin: 04/10/17 10:18 Dose: 10 mg Nebivolol (Bystolic -) 10 mg PO DAILY [facility] Last Admin: 04/10/17 10:19 Dose: 10 mg Olanzapine (Zyprexa -) 5 mg PO BID [facility] Last Admin: 04/10/17 10:19 Dose: 5 mg Pantoprazole Sodium (Protonix -) 40 mg PO DAILY [facility] Last Admin: 04/10/17 10:18 Dose: 40 mg Rosuvastatin Calcium (Crestor -) 20 mg PO HS [facility] Last Admin: 04/09/17 21:17 Dose: 20 mg Tamsulosin HCl (Flomax -) 0.4 mg PO DAILY@0830 [facility] Last Admin: 04/10/17 10:18 Dose: 0.4 mg - Objective Vital Signs: Vital Signs Temperature 98.5 F 04/10/17 08:00 Pulse Rate 66 04/10/17 08:00 Respiratory Rate 20 04/10/17 08:00 Blood Pressure 150/72 04/10/17 08:00 O2 Sat by Pulse Oximetry (%) 95 04/10/17 08:00 Constitutional: Yes: Calm Eyes: Yes: Conjunctiva Clear HENT: Yes: Atraumatic Cardiovascular: Yes: S1, S2 Respiratory: Yes: CTA Bilaterally Gastrointestinal: Yes: Soft Genitourinary: Yes: WNL Musculoskeletal: Yes: Muscle Weakness Edema: No Neurological: Yes: Pre-Existing Deficit Labs: CBC, BMP 04/09/17 10:12 04/09/17 10:12 INR, PTT INR 0.97 (0.82-1.09) 04/05/17 20:30 Problem List - Problems (1) CKD (chronic kidney disease) Code(s): N18.9 - CHRONIC KIDNEY DISEASE, UNSPECIFIED (2) NPH (normal pressure hydrocephalus) Code(s): G91.2 - (IDIOPATHIC) NORMAL PRESSURE HYDROCEPHALUS (3) UTI (urinary tract infection) Code(s): N39.0 - URINARY TRACT INFECTION, SITE NOT SPECIFIED Qualifiers: Urinary tract infection type: acute cystitis (4) Unsteady gait Code(s): R26.81 - UNSTEADINESS ON FEET (5) Weakness Code(s): R53.1 - WEAKNESS Assessment/Plan Current Medications Generic Name Dose Route Start Last Admin Trade Name Freq PRN Reason Stop Dose Admin Aspirin 81 mg 04/07/17 10:00 04/10/17 10:18 Asa - PO 81 mg DAILY [facility] Administration Donepezil HCl 10 mg 04/07/17 10:00 04/10/17 10:18 Aricept - PO 10 mg DAILY [facility] Administration Memantine 5 mg 04/06/17 22:00 04/10/17 10:18 Namenda - PO 5 mg BID [facility] Administration Metoclopramide HCl 10 mg 04/06/17 16:30 04/10/17 10:18 Reglan - PO 10 mg ACHS [facility] Administration Nebivolol 10 mg 04/06/17 12:15 04/10/17 10:19 Bystolic - PO 10 mg DAILY [facility] Administration Olanzapine 5 mg 04/06/17 11:00 04/10/17 10:19 Zyprexa - PO 5 mg BID [facility] Administration Pantoprazole Sodium 40 mg 04/06/17 12:15 04/10/17 10:18 Protonix - PO 40 mg DAILY [facility] Administration Rosuvastatin Calcium 20 mg 04/06/17 22:00 04/09/17 21:17 Crestor - PO 20 mg HS [facility] Administration Tamsulosin HCl 0.4 mg 04/07/17 08:30 04/10/17 10:18 Flomax - PO 0.4 mg DAILY@0830 [facility] Administration Impression 1. CKD 2. PKD 3. UTI 4. HTN 5. weakness 6. s/p fall 7. prostate cancer 8. dementia 9. hyperlipidemia Plan - renal function at baseline - encourage PO intake - will follow prn - can see me in office - discussed with Dr Parra
[2017-04-10] MEDS ORDERED: ROSUVASTATIN CA 10 MG TABLET (FP) ONE (21:23)
[2017-04-10] MEDS ORDERED: PT OWN MED DRAWER 7, Y5N ONE (21:24)
[2017-04-10] MEDS: ROSUVASTATIN CA 20 MG TABLET (FP) PO SCH (21:35)
[2017-04-11] MEDS ORDERED: CEFAZOLIN 1 GM PUSH 1 GM/10 ML DISP.SYRIN IVPUSH SCH (01:00)
[2017-04-11] MEDS: METOCLOPRAMIDE HCL 10 MG TABLET (FP) PO SCH ×3 (06:54→21:58)
[2017-04-11] MEDS: TAMSULOSIN HCL 0.4 MG CAP.ER.24H (FP) PO SCH (08:43)
[2017-04-11 09:04] LABS: HEMATOCRIT 43.3 % (35.4-49); HEMOGLOBIN 13.4 GM/dL (11.7-16.9); MCH 24.2 pg (25.7-33.7); MCHC 30.9 g/dl (32.0-35.9); MEAN CELL VOLUME 78.3 fl (80-96); MEAN PLT VOLUME 9.9 fl (7.5-11.1); PLATELET COUNT 213 K/MM3 (134-434); RBC 5.53 M/mm3 (4.00-5.60); WHITE BLOOD COUNT 11.2 K/mm3 (4.0-10.0)
[2017-04-11] MEDS ORDERED: LIDOCAINE 1%/EPI 1:100000 (20 ML MULTI DOSE VIAL) ONE ×2 (09:11→10:13)
[2017-04-11] MEDS ORDERED: BUPIVACAINE HCL/PF 0.5% (5MG/ML) 10 ML VIAL ONE ×2 (09:11→10:13)
[2017-04-11 09:29] LABS: ALBUMIN 2.9 g/dl (3.4-5.0); ANION GAP 9 (8-16); BILIRUBIN,TOTAL 0.3 mg/dL (0.2-1.0); BLOOD UREA NITROGEN 39 mg/dL (7-18); CALCIUM 8.9 mg/dL (8.5-10.1); CHLORIDE 108 mmol/L (98-107); CO2 26 mmol/L (21-32); CREATININE 1.7 mg/dL (0.7-1.3); GLUCOSE,RANDOM 110 mg/dL (74-106); POTASSIUM 4.7 mmol/L (3.5-5.1); SGOT/AST 22 U/L (15-37); SGPT/ALT 28 U/L (12-78); SODIUM 143 mmol/L (136-145)
[2017-04-11 09:30] LABS: ALK PHOS 69 U/L (45-117); TOT PROT 6.4 g/dl (6.4-8.2)
[2017-04-11] MEDS ORDERED: CHLORHEXIDINE GLUCONATE 4% CLEANSER FOR DECOLONIZATION TP SCH ×2 (09:42→22:00)
[2017-04-11] MEDS: PANTOPRAZOLE 40 MG TABLET (FP) PO SCH (09:43)
[2017-04-11] MEDS: MEMANTINE HCL 5 MG TABLET (UD) PO SCH ×2 (09:43→21:57)
[2017-04-11] MEDS: DONEPEZIL HCL 10 MG TABLET (FP) PO SCH (09:43)
[2017-04-11] MEDS: ASPIRIN 81 MG CHEWABLE TABLETS PO SCH (09:43)
[2017-04-11] MEDS: OLANZapine 5 MG TABLET PO SCH ×2 (09:49→21:59)
[2017-04-11] MEDS: NEBIVOLOL 10 MG TABLET (FP) PO SCH (09:50)
[2017-04-11] MEDS ORDERED: MULTIVITAMINS (DAILY MVI) TABLET (FP) PO SCH (10:00)
[2017-04-11] MEDS ORDERED: ASCORBIC ACID 250 MG TABLET (FP) PO SCH (10:00)
[2017-04-11] MEDS ORDERED: GENTAMICIN SO4 80 MG/2 ML VIAL ONE (10:12)
[2017-04-11] MEDS ORDERED: THROMBIN (BOVINE) 5,000 UNIT VIAL TP ONE (10:13)
[2017-04-11] MEDS ORDERED: VANCOMYCIN 1,000 MG VIAL (RESTRICTED TO ID ONLY) ONE ×2 (10:13→17:05)
--- NOTE | 2017-04-11 10:36 | PN ---
Progress Note, ABSTRACT CHECKER - Note Progress Note: Selected Entries 04/10/17 04/10/17 04/10/17 06:03 08:00 11:00 Breakfast 100% 100% Lunch Supper Temperature 98.8 F 98.5 F 04/10/17 04/10/17 04/10/17 14:53 14:54 22:35 Breakfast Lunch 75% Supper 100% Temperature 97.8 F 98.4 F 04/11/17 06:13 Breakfast Lunch Supper Temperature 97.9 F Laboratory Tests 04/09/17 04/11/17 10:12 07:45 WBC 9.4 11.2 H NPO for OR. Staff reports that pt is tolerating thin liquids. Continue diet as ordered. Monitor tolerance/pulm status.
--- NOTE | 2017-04-11 12:20 | PN ---
Progress Note, Physician Chief Complaint: Confusion, weakness History of Present Illness: NAD, in bed seen by Neurosurgery for normal pressure hydrocephalus- going for shunt placement Swallow eval done- recommended soft diet with thin liquids at bedside. Patient intermittently agitated with . Mentioned about SNF , refuses and got agitate extremely weak, unable to take care of him at home by herself. Seen by PT- moderate assistance of 2 people - Current Medication List Current Medications: Active Medications Amino Acids (Prosource No Carb Liquid Pkt) 30 ml PO BID@0800,1730 [facility] Ascorbic Acid (Vitamin C -) 250 mg PO DAILY [facility] Last Admin: 04/11/17 10:00 Dose: Not Given Aspirin (Asa -) 81 mg PO DAILY [facility] Last Admin: 04/11/17 09:43 Dose: 81 mg Chlorhexidine Gluconate (Hibiclens For Decolonization -) 1 applic TP [facility] Donepezil HCl (Aricept -) 10 mg PO DAILY [facility] Last Admin: 04/11/17 09:43 Dose: 10 mg Memantine (Namenda -) 5 mg PO BID [facility] Last Admin: 04/11/17 09:43 Dose: 5 mg Metoclopramide HCl (Reglan -) 10 mg PO ACHS [facility] Last Admin: 04/11/17 11:14 Dose: Not Given Multivitamins/Minerals/Vitamin C (Tab-A-Vit -) 1 tab PO DAILY [facility] Last Admin: 04/11/17 09:59 Dose: Not Given Nebivolol (Bystolic -) 10 mg PO DAILY [facility] Last Admin: 04/11/17 09:50 Dose: 10 mg Olanzapine (Zyprexa -) 5 mg PO BID [facility] Last Admin: 04/11/17 09:49 Dose: 5 mg Pantoprazole Sodium (Protonix -) 40 mg PO DAILY [facility] Last Admin: 04/11/17 09:43 Dose: 40 mg Rosuvastatin Calcium (Crestor -) 20 mg PO HS [facility] Last Admin: 04/10/17 21:35 Dose: 20 mg Tamsulosin HCl (Flomax -) 0.4 mg PO DAILY@0830 [facility] Last Admin: 04/11/17 08:43 Dose: 0.4 mg - Objective Vital Signs: Vital Signs Temperature 97.8 F 04/11/17 10:00 Pulse Rate 62 04/11/17 10:00 Respiratory Rate 18 04/11/17 10:00 Blood Pressure 157/86 04/11/17 10:00 O2 Sat by Pulse Oximetry (%) 95 04/11/17 09:00 Constitutional: Yes: Well Nourished, No Distress, Calm Cardiovascular: Yes: Regular Rate and Rhythm Respiratory: Yes: Regular Musculoskeletal: Yes: Muscle Weakness Extremities: Yes: WNL Edema: No Peripheral Pulses WNL: Yes Neurological: Yes: Alert, Pre-Existing Deficit Psychiatric: Yes: Alert Labs: CBC, BMP 04/11/17 07:45 04/11/17 07:45 INR, PTT INR 0.97 (0.82-1.09) 04/05/17 20:30 Problem List - Problems (1) GARRISON (acute kidney injury) Assessment/Plan: -seen by Nephrology -encourage PO intake -follow trend Code(s): N17.9 - ACUTE KIDNEY FAILURE, UNSPECIFIED (2) Altered mental status Assessment/Plan: -seen by Neurosurgery, neurology and psychiatry -on zyprexa, donepezil and namenda Code(s): R41.82 - ALTERED MENTAL STATUS, UNSPECIFIED (3) NPH (normal pressure hydrocephalus) Assessment/Plan: -seen by Neurosurgery -ventriculoperitoneal shunt placement later today Code(s): G91.2 - (IDIOPATHIC) NORMAL PRESSURE HYDROCEPHALUS (4) Unsteady gait Assessment/Plan: -seen by Physical therapy, needed moderate assistance of 2 people -candidate for SNF Code(s): R26.81 - UNSTEADINESS ON FEET Assessment/Plan see problem list
--- NOTE | 2017-04-11 14:58 | CON.PULM ---
Consult - History of Present Illness History of Present Illness: We have been asked to evaluate and clear patient from a pulmonary perspective for possible V-P shunt placement. Pt is an 86 year old male with pmhx of dementia, CKD, PKD, prostate cancer, HTN and CAD who presents to the ER after fall and altered mental status. He was being treated for a UTI at the time. No one is at bedside presently to provide additional history. 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 Cardio/Vascular: Yes: HTN, Hyperlipdemia Pulmonary: No: O2 Dependent, Pneumonia Renal/: Yes: Renal Inusuff Rheumatology: Yes: Gout - Past Surgical History Additional Surgical History: prostate surgery - Alcohol/Substance Use Hx Alcohol Use: No - Smoking History Smoking history: Former smoker Have you smoked in the past 12 months: No If you are a former smoker, when did you quit?: 1966 - Social History Usual Living Arrangement: With Spouse Home Medications - Allergies Allergies/Adverse Reactions: Allergies Allergy/AdvReac Type Severity Reaction Status Date / Time No Known Allergies Allergy Verified 04/05/17 20:02 - Home Medications Home Medications: Ambulatory Orders Nebivolol HCl [Bystolic] 10 mg PO DAILY 03/18/14 Rosuvastatin Calcium [Crestor] 40 mg PO DAILY 03/18/14 Aspirin [ASA -] 81 mg PO DAILY 04/05/17 Clonazepam [Klonopin] 1 mg PO HS 04/05/17 Donepezil HCl [Aricept -] 10 mg PO DAILY 04/05/17 Escitalopram Oxalate [Lexapro -] 10 mg PO DAILY 04/05/17 Febuxostat [Uloric -] 40 mg PO DAILY 04/05/17 Hydralazine HCl [Apresoline -] 10 mg PO BID 04/05/17 Memantine HCl/Donepezil HCl [Namzaric 14 mg-10 mg Capsule] 1 each PO DAILY 04/05 Mirabegron [Myrbetriq] 25 mg PO DAILY 04/05/17 Family Disease History - Family Disease History Family History: Unable to Obtain Review of Systems Unable to obtain ROS, reason: unable to obtain Physical Exam Vital Sings: Vital Signs Temperature 97.9 F 04/11/17 14:48 Pulse Rate 56 L 04/11/17 14:48 Respiratory Rate 18 04/11/17 10:00 Blood Pressure 140/61 04/11/17 14:48 O2 Sat by Pulse Oximetry (%) 95 04/11/17 09:00 Constitutional: Yes: Calm Eyes: Yes: EOM Intact HENT: Yes: Normocephalic Neck: Yes: Trachea Midline Cardiovascular: Yes: Regular Rate and Rhythm, S1, S2 Respiratory: Yes: CTA Bilaterally Gastrointestinal: Yes: Soft Edema: No Labs: CBC, BMP 04/11/17 07:45 04/11/17 07:45 Imaging - Results Chest X-ray: Report Reviewed, Image Reviewed Cat Scan: Report Reviewed, Image Reviewed Problem List - Problems (1) GARRISON (acute kidney injury) Code(s): N17.9 - ACUTE KIDNEY FAILURE, UNSPECIFIED (2) Acute metabolic encephalopathy Code(s): G93.41 - METABOLIC ENCEPHALOPATHY (3) Altered mental status Code(s): R41.82 - ALTERED MENTAL STATUS, UNSPECIFIED (4) Coughing Code(s): R05 - COUGH (5) Dementia Code(s): F03.90 - UNSPECIFIED DEMENTIA WITHOUT BEHAVIORAL DISTURBANCE (6) Hypertension Code(s): I10 - ESSENTIAL (PRIMARY) HYPERTENSION Qualifiers: Hypertension type: essential hypertension Qualified Code(s): I10 - Essential (primary) hypertension Assessment/Plan No pulmonary contraindication to proposed V-P shunt placement o2 supplementation to keep sat greater than 90% Srikanth ROCA MD
[2017-04-11] MEDS ORDERED: ONDANSETRON 4 MG/2 ML VIAL IVPUSH PRN ×2 (16:11→20:07)
[2017-04-11] MEDS ORDERED: ROCURONIUM BROMIDE 50 MG/5 ML VIAL ONE (16:21)
[2017-04-11] MEDS ORDERED: SUCCINYLCHOLINE CHLORIDE 200 MG/10 ML VIAL ONE (16:21)
[2017-04-11] MEDS ORDERED: PROPOFOL 20 ML ONE (16:21)
[2017-04-11] MEDS ORDERED: ceFAZolin SODIUM 1 GM VIAL ONE (17:05)
[2017-04-11] MEDS ORDERED: ceFAZolin SODIUM 1 GM VIAL IVPB ONE (17:15)
[2017-04-11] MEDS ORDERED: LIDOCAINE 1%/EPI 1:100000 (20 ML MULTI DOSE VIAL) IJ ONE (17:17)
[2017-04-11] MEDS ORDERED: VANCOMYCIN 1 GRAM (PRE-DOCKED) 1,000 MG/250 ML BAG IVPB ONE (17:22)
[2017-04-11] MEDS ORDERED: AMINO ACIDS/PROTEIN HYDROLYS 30 ML LIQUID.PKT PO SCH (17:30)
[2017-04-11] MEDS ORDERED: ePHEDrine SULFATE 50 MG/1 ML AMPULE ONE (17:37)
[2017-04-11] MEDS ORDERED: DEXAMETHASONE SOD PHOSPHATE 4 MG/1 ML VIAL ONE (18:28)
[2017-04-11] MEDS ORDERED: METOPROLOL TARTRATE 5 MG/5 ML VIAL ONE (18:46)
--- NOTE | 2017-04-11 19:13 | OP ---
Operative Note - Note: Operative Date: 04/11/17 Pre-Operative Diagnosis: NPH Operation: ventriculoperitoneal shunt placement Surgeon: Jorge Roca Farmworker Livestock: Jeniffer [place] Anesthesiologist/SCRAP SAWYER: Rishabh Cartwright Anesthesia: General Estimated Blood Loss (mls): 30 Drains, Volume Out (mls): 200 (duque) Fluid Volume Replaced (mls): 700 Operative Report Dictated: Yes
--- NOTE | 2017-04-11 19:16 | SURG ---
Surgery [employer] Driver Note [employer] Driver: Jeniffer [place] PA-C Date of Service: 04/11/17 Diagnosis: NPH Procedure: ventriculoperitoneal shunt placement I was present for the entirety of the operative procedure. For further detail, please refer to operative report. Visit type - Case Type Case Type: ED Admission - Emergency Emergency Visit: Yes ED Registration Date: 04/06/17 Care time: The patient presented to the Emergency Department on the above date and was hospitalized for further evaluation of their emergent condition. - New patient This patient is new to me today: Yes Date on this admission: 04/11/17
[2017-04-11] MEDS ORDERED: ACETAMINOPHEN 325 MG TABLET (FP) PO PRN (20:47)
[2017-04-11] MEDS ORDERED: ROSUVASTATIN CA 10 MG TABLET (FP) ONE (21:56)
[2017-04-11] MEDS: ROSUVASTATIN CA 20 MG TABLET (FP) PO SCH (21:58)
[2017-04-12] MEDS: CEFAZOLIN 1 GM PUSH 1 GM/10 ML DISP.SYRIN IVPUSH SCH ×2 (01:13→12:36)
[2017-04-12] MEDS: METOCLOPRAMIDE HCL 10 MG TABLET (FP) PO SCH ×4 (06:19→22:50)
[2017-04-12 07:45] LABS: BASO % 0.1 % (0-2.0); HEMATOCRIT 41.2 % (35.4-49); HEMOGLOBIN 12.8 GM/dL (11.7-16.9); LYMPH % 11.5 % (8-40); MCH 24.4 pg (25.7-33.7); MEAN CELL VOLUME 78.6 fl (80-96); MEAN PLT VOLUME 10.2 fl (7.5-11.1); MONO % 2.2 % (3.8-10.2); NEUT % 86.2 % (42.8-82.8); PLATELET COUNT 217 K/MM3 (134-434); RBC 5.24 M/mm3 (4.00-5.60); WHITE BLOOD COUNT 9.9 K/mm3 (4.0-10.0)
[2017-04-12 08:16] LABS: CHLORIDE 106 mmol/L (98-107); POTASSIUM 5.2 mmol/L (3.5-5.1); SODIUM 140 mmol/L (136-145)
[2017-04-12 08:25] LABS: ALBUMIN 2.9 g/dl (3.4-5.0); ALK PHOS 71 U/L (45-117); ANION GAP 9 (8-16); BILIRUBIN,TOTAL 0.2 mg/dL (0.2-1.0); BLOOD UREA NITROGEN 43 mg/dL (7-18); CALCIUM 8.7 mg/dL (8.5-10.1); CO2 25 mmol/L (21-32); GLUCOSE,RANDOM 130 mg/dL (74-106); SGOT/AST 17 U/L (15-37); SGPT/ALT 24 U/L (12-78); TOT PROT 6.3 g/dl (6.4-8.2)
--- NOTE | 2017-04-12 09:05 | PN ---
Progress Note (short form) - Note Progress Note: POD #1 Alert. Sitting up in bed. No acute events since surgery per RN notes. Eating breakfast with assistance. Conversing well. 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 C/o mild incisional tenderness (pain 4/10). Adequate pain control via prn meds. States he feels the same compared with prior too surgical procedure. Head CT s/p procedure obtained and results/images reviewed. Denies n/v/f/c, blurry vision, SEN, CP, SOB, weakness, numbness or tingling. Last Vital Signs Temp Pulse Resp BP Pulse Ox 98.0 F 66 20 144/77 96 /18/18 06:05 18 06:05 18 06:05 18 06:05 18 22:00 CBC, BMP //18 06:47 04/12/17 06:47 Gen: nad Head: Right posterior parietal incision c/d/i with jeni and dermabond. No hematoma. ABD: RUQ transverse incision c/d/i with jeni and dermabond. No hematoma. Neuro: GMNVI Problem List - Problems (1) Altered mental status Assessment/Plan: POD #1 s/p right posterior parietal MAINTENANCE INSTRUCTOR shunt insertion Doing well. Diet as tolerated Aquacel dressing applied Monitor BUN/Cr, Potassium Cont Medical management Code(s): R41.82 - ALTERED MENTAL STATUS, UNSPECIFIED
[2017-04-12] MEDS ORDERED: PT OWN MED DRAWER 7, Y5N ONE (10:26)
[2017-04-12] MEDS: TAMSULOSIN HCL 0.4 MG CAP.ER.24H (FP) PO SCH (10:34)
[2017-04-12] MEDS: DONEPEZIL HCL 10 MG TABLET (FP) PO SCH (10:35)
[2017-04-12] MEDS: AMINO ACIDS/PROTEIN HYDROLYS 30 ML LIQUID.PKT PO SCH ×2 (10:35→17:09)
[2017-04-12] MEDS: ASPIRIN 81 MG CHEWABLE TABLETS PO SCH (10:35)
[2017-04-12] MEDS: NEBIVOLOL 10 MG TABLET (FP) PO SCH (10:35)
[2017-04-12] MEDS: ASCORBIC ACID 250 MG TABLET (FP) PO SCH (10:36)
[2017-04-12] MEDS: MEMANTINE HCL 5 MG TABLET (UD) PO SCH ×2 (10:36→22:50)
[2017-04-12] MEDS: PANTOPRAZOLE 40 MG TABLET (FP) PO SCH (10:36)
[2017-04-12] MEDS: OLANZapine 5 MG TABLET PO SCH ×2 (10:36→22:50)
[2017-04-12] MEDS: MULTIVITAMINS (DAILY MVI) TABLET (FP) PO SCH (10:36)
[2017-04-12] MEDS ORDERED: SODIUM CHLORIDE 1,000 ML IV SCH (10:45)
--- NOTE | 2017-04-12 12:12 | PN ---
Progress Note (short form) - Note Progress Note: Pt doing well s/p INVESTMENT ADVISOR shunt insertion; no anesthetic issues. Continue current treament
--- NOTE | 2017-04-12 13:28 | PN ---
Progress Note, Physician Chief Complaint: Confusion, weakness History of Present Illness: NAD, in bed Shunt placement yesterday Swallow eval done- recommended soft diet with thin liquids Seen by PT- moderate assistance of 2 people pleasantly confused prefers the patient to go to [facility] for SNF - Current Medication List Current Medications: Active Medications Acetaminophen (Tylenol -) 650 mg PO Q6H PRN PRN Reason: PAIN LEVEL 1-5 Last Admin: 04/12/17 06:39 Dose: 650 mg Amino Acids (Prosource No Carb Liquid Pkt) 30 ml PO BID@0800,1730 [facility] Last Admin: 04/12/17 10:35 Dose: 30 ml Ascorbic Acid (Vitamin C -) 250 mg PO DAILY [facility] Last Admin: 04/12/17 10:36 Dose: 250 mg Aspirin (Asa -) 81 mg PO DAILY [facility] Last Admin: 04/12/17 10:35 Dose: 81 mg Donepezil HCl (Aricept -) 10 mg PO DAILY [facility] Last Admin: 04/12/17 10:35 Dose: 10 mg Sodium Chloride (Normal Saline -) 1,000 mls @ 75 mls/hr IV ASDIR [facility] Last Admin: 04/12/17 11:54 Dose: 75 mls/hr Cefazolin Sodium (Ancef -) 1 gm in 10 mls @ 100 mls/hr IVPUSH Q8H-IV [facility] Stop: 04/12/17 18:05 Memantine (Namenda -) 5 mg PO BID [facility] Last Admin: 04/12/17 10:36 Dose: 5 mg Metoclopramide HCl (Reglan -) 10 mg PO ACHS [facility] Last Admin: 04/12/17 10:37 Dose: 10 mg Multivitamins/Minerals/Vitamin C (Tab-A-Vit -) 1 tab PO DAILY [facility] Last Admin: 04/12/17 10:36 Dose: 1 tab Nebivolol (Bystolic -) 10 mg PO DAILY [facility] Last Admin: 04/12/17 10:35 Dose: 10 mg Olanzapine (Zyprexa -) 5 mg PO BID [facility] Last Admin: 04/12/17 10:36 Dose: 5 mg Ondansetron HCl (Zofran Injection) 4 mg IVPUSH Q6H PRN PRN Reason: NAUSEA AND/OR VOMITING Pantoprazole Sodium (Protonix -) 40 mg PO DAILY [facility] Last Admin: 04/12/17 10:36 Dose: 40 mg Rosuvastatin Calcium (Crestor -) 20 mg PO HS [facility] Last Admin: 04/11/17 21:58 Dose: 20 mg Tamsulosin HCl (Flomax -) 0.4 mg PO DAILY@0830 [facility] Last Admin: 04/12/17 10:34 Dose: 0.4 mg - Objective Vital Signs: Vital Signs Temperature 98.0 F 04/12/17 06:05 Pulse Rate 66 04/12/17 06:05 Respiratory Rate 20 04/12/17 06:05 Blood Pressure 144/77 04/12/17 06:05 O2 Sat by Pulse Oximetry (%) 96 04/11/17 22:00 Constitutional: Yes: Well Nourished, No Distress, Calm Cardiovascular: Yes: Regular Rate and Rhythm Respiratory: Yes: Regular Gastrointestinal: Yes: Normal Bowel Sounds, Abdomen, Obese Musculoskeletal: Yes: Muscle Weakness Edema: No Peripheral Pulses WNL: Yes Neurological: Yes: Alert, Pre-Existing Deficit Psychiatric: Yes: Alert Labs: CBC, BMP 04/12/17 06:47 04/12/17 06:47 INR, PTT INR 0.97 (0.82-1.09) 04/05/17 20:30 Problem List - Problems (1) GARRISON (acute kidney injury) Assessment/Plan: -seen by Nephrology -encourage PO intake -IVF -follow trend Code(s): N17.9 - ACUTE KIDNEY FAILURE, UNSPECIFIED (2) Altered mental status Assessment/Plan: -seen by Neurosurgery, neurology and psychiatry -on zyprexa, donepezil and namenda -shunt placement yesterday, feels the same Code(s): R41.82 - ALTERED MENTAL STATUS, UNSPECIFIED (3) NPH (normal pressure hydrocephalus) Assessment/Plan: -seen by Neurosurgery -ventriculoperitoneal shunt placement POD 1 Code(s): G91.2 - (IDIOPATHIC) NORMAL PRESSURE HYDROCEPHALUS (4) Unsteady gait Assessment/Plan: -seen by Physical therapy, needed moderate assistance of 2 people -candidate for SNF Code(s): R26.81 - UNSTEADINESS ON FEET Assessment/Plan see problem list
--- NOTE | 2017-04-12 14:33 | PN ---
Progress Note, Physician History of Present Illness: Pt seen and examined at bedside. He is s/p [employer]IL[employer] shunt. - Current Medication List Current Medications: Active Medications Acetaminophen (Tylenol -) 650 mg PO Q6H PRN PRN Reason: PAIN LEVEL 1-5 Last Admin: 04/12/17 06:39 Dose: 650 mg Amino Acids (Prosource No Carb Liquid Pkt) 30 ml PO BID@0800,1730 [facility] Last Admin: 04/12/17 10:35 Dose: 30 ml Ascorbic Acid (Vitamin C -) 250 mg PO DAILY [facility] Last Admin: 04/12/17 10:36 Dose: 250 mg Aspirin (Asa -) 81 mg PO DAILY [facility] Last Admin: 04/12/17 10:35 Dose: 81 mg Donepezil HCl (Aricept -) 10 mg PO DAILY [facility] Last Admin: 04/12/17 10:35 Dose: 10 mg Sodium Chloride (Normal Saline -) 1,000 mls @ 75 mls/hr IV ASDIR [facility] Last Admin: 04/12/17 11:54 Dose: 75 mls/hr Cefazolin Sodium (Ancef -) 1 gm in 10 mls @ 100 mls/hr IVPUSH Q8H-IV [facility] Stop: 04/12/17 18:05 Memantine (Namenda -) 5 mg PO BID [facility] Last Admin: 04/12/17 10:36 Dose: 5 mg Metoclopramide HCl (Reglan -) 10 mg PO ACHS [facility] Last Admin: 04/12/17 10:37 Dose: 10 mg Multivitamins/Minerals/Vitamin C (Tab-A-Vit -) 1 tab PO DAILY [facility] Last Admin: 04/12/17 10:36 Dose: 1 tab Nebivolol (Bystolic -) 10 mg PO DAILY [facility] Last Admin: 04/12/17 10:35 Dose: 10 mg Olanzapine (Zyprexa -) 5 mg PO BID [facility] Last Admin: 04/12/17 10:36 Dose: 5 mg Ondansetron HCl (Zofran Injection) 4 mg IVPUSH Q6H PRN PRN Reason: NAUSEA AND/OR VOMITING Pantoprazole Sodium (Protonix -) 40 mg PO DAILY [facility] Last Admin: 04/12/17 10:36 Dose: 40 mg Rosuvastatin Calcium (Crestor -) 20 mg PO HS [facility] Last Admin: 04/11/17 21:58 Dose: 20 mg Tamsulosin HCl (Flomax -) 0.4 mg PO DAILY@0830 [facility] Last Admin: 04/12/17 10:34 Dose: 0.4 mg - Objective Vital Signs: Vital Signs Temperature 98.0 F 04/12/17 06:05 Pulse Rate 66 04/12/17 06:05 Respiratory Rate 20 04/12/17 06:05 Blood Pressure 144/77 04/12/17 06:05 O2 Sat by Pulse Oximetry (%) 96 04/11/17 22:00 Constitutional: Yes: Calm Eyes: Yes: Conjunctiva Clear Cardiovascular: Yes: S1, S2 Respiratory: Yes: CTA Bilaterally Gastrointestinal: Yes: Soft, Abdomen, Obese Genitourinary: Yes: WNL Musculoskeletal: Yes: WNL Edema: No Neurological: Yes: Oriented Psychiatric: Yes: Oriented Labs: CBC, BMP 04/12/17 06:47 04/12/17 06:47 INR, PTT INR 0.97 (0.82-1.09) 04/05/17 20:30 Problem List - Problems (1) CKD (chronic kidney disease) Code(s): N18.9 - CHRONIC KIDNEY DISEASE, UNSPECIFIED (2) NPH (normal pressure hydrocephalus) Code(s): G91.2 - (IDIOPATHIC) NORMAL PRESSURE HYDROCEPHALUS (3) UTI (urinary tract infection) Code(s): N39.0 - URINARY TRACT INFECTION, SITE NOT SPECIFIED Qualifiers: Urinary tract infection type: acute cystitis (4) Unsteady gait Code(s): R26.81 - UNSTEADINESS ON FEET (5) Weakness Code(s): R53.1 - WEAKNESS Assessment/Plan Current Medications Generic Name Dose Route Start Last Admin Trade Name Freq PRN Reason Stop Dose Admin Acetaminophen 650 mg 04/11/17 20:47 04/12/17 06:39 Tylenol - PO 650 mg Q6H PRN Administration PAIN LEVEL 1-5 Amino Acids 30 ml 04/12/17 08:00 04/12/17 10:35 Prosource No Carb Liquid Pkt PO 30 ml BID@0800,1730 [facility] Administration Ascorbic Acid 250 mg 04/12/17 10:00 04/12/17 10:36 Vitamin C - PO 250 mg DAILY [facility] Administration Aspirin 81 mg 04/12/17 10:00 04/12/17 10:35 Asa - PO 81 mg DAILY [facility] Administration Donepezil HCl 10 mg 04/12/17 10:00 04/12/17 10:35 Aricept - PO 10 mg DAILY [facility] Administration Sodium Chloride 1,000 mls @ 75 mls/hr 04/12/17 10:45 04/12/17 11:54 Normal Saline - IV 75 mls/hr ASDIR [facility] Administration Cefazolin Sodium 1 gm in 10 mls @ 100 mls/hr 04/12/17 18:00 Ancef - IVPUSH 04/12/17 18:05 Q8H-IV [facility] Memantine 5 mg 04/11/17 22:00 04/12/17 10:36 Namenda - PO 5 mg BID [facility] Administration Metoclopramide HCl 10 mg 04/11/17 22:00 04/12/17 10:37 Reglan - PO 10 mg ACHS [facility] Administration Multivitamins/Minerals/Vitamin C 1 tab 04/12/17 10:00 04/12/17 10:36 Tab-A-Vit - PO 1 tab DAILY [facility] Administration Nebivolol 10 mg 04/12/17 10:00 04/12/17 10:35 Bystolic - PO 10 mg DAILY [facility] Administration Olanzapine 5 mg 04/11/17 22:00 04/12/17 10:36 Zyprexa - PO 5 mg BID [facility] Administration Ondansetron HCl 4 mg 04/11/17 20:07 Zofran Injection IVPUSH Q6H PRN NAUSEA AND/OR VOMITING Pantoprazole Sodium 40 mg 04/12/17 10:00 04/12/17 10:36 Protonix - PO 40 mg DAILY [facility] Administration Rosuvastatin Calcium 20 mg 04/11/17 22:00 04/11/17 21:58 Crestor - PO 20 mg HS [facility] Administration Tamsulosin HCl 0.4 mg 04/12/17 08:30 04/12/17 10:34 Flomax - PO 0.4 mg DAILY@0830 [facility] Administration Impression 1. CKD 2. PKD 3. UTI 4. HTN 5. weakness 6. s/p fall 7. prostate cancer 8. dementia 9. hyperlipidemia 10. hyperkalemia Plan - cont with IV fluids - repeat labs in am - change to low potassium diet - discussed plan with - renal function is above baseline today Dr Parra
--- NOTE | 2017-04-12 15:20 | PN ---
Progress Note, [employer] [facility] - Note Progress Note: Selected Entries 04/10/17 04/10/17 04/10/17 08:00 11:00 14:54 Breakfast 100% 100% Lunch 75% Supper Temperature 04/10/17 04/11/17 04/11/17 22:35 06:13 10:00 Breakfast Lunch Supper 100% Temperature 97.9 F 97.8 F 04/11/17 04/11/17 04/11/17 14:48 18:54 20:45 Breakfast Lunch Supper Temperature 97.9 F 98.1 F 97.6 F 04/11/17 04/12/17 04/12/17 23:12 02:25 06:05 Breakfast Lunch Supper Temperature 98.8 F 97.5 F L 98.0 F 04/12/17 04/12/17 04/12/17 10:56 13:39 14:43 Breakfast 100% Lunch 75% Supper Temperature 97.7 F Laboratory Tests 04/11/17 04/12/17 07:45 06:47 WBC 11.2 H 9.9 Had Shunt. Reported to cough with pills with thin liquid. Pt refused meds crushed in applesauce. reports that he coughs a lot, with and without po intake. MBS fairly functional swallowing. Suspect occas aspiration when pt is distracted. Pt is not reportedly congested. Option is to downgrade to nectar thick liquids, atleast with meds, possibly with meals. May not be neccessary unless pulmonary symptoms are noted.
[2017-04-12] MEDS: SODIUM CHLORIDE 0.45% 1,000 ML IV SCH (17:09)
[2017-04-12] MEDS ORDERED: CEFAZOLIN 1 GM PUSH 1 GM/10 ML DISP.SYRIN IVPUSH SCH (18:00)
[2017-04-12] MEDS ORDERED: ROSUVASTATIN CA 10 MG TABLET (FP) ONE (21:21)
[2017-04-12] MEDS: ROSUVASTATIN CA 20 MG TABLET (FP) PO SCH (23:02)
[2017-04-13] MEDS ORDERED: LORazepam 2 MG/ML SDV VIAL IM ONE (00:42)
[2017-04-13] MEDS: METOCLOPRAMIDE HCL 10 MG TABLET (FP) PO SCH (06:12)
[2017-04-13] MEDS: SODIUM CHLORIDE 0.45% 1,000 ML IV SCH ×2 (06:17→15:16)
[2017-04-13] MEDS ORDERED: LIDOCAINE 1%/EPI 1:100000 (20 ML MULTI DOSE VIAL) ONE (07:34)
[2017-04-13] MEDS ORDERED: GENTAMICIN SO4 80 MG/2 ML VIAL ONE (07:34)
[2017-04-13] MEDS ORDERED: BUPIVACAINE HCL/PF 0.5% (5MG/ML) 10 ML VIAL ONE (07:35)
[2017-04-13] MEDS ORDERED: THROMBIN (BOVINE) 5,000 UNIT VIAL TP ONE (07:36)
[2017-04-13] MEDS ORDERED: PT OWN MED DRAWER 7, Y5N ONE ×2 (08:10→21:25)
[2017-04-13] MEDS: AMINO ACIDS/PROTEIN HYDROLYS 30 ML LIQUID.PKT PO SCH ×2 (08:16→17:58)
[2017-04-13] MEDS: TAMSULOSIN HCL 0.4 MG CAP.ER.24H (FP) PO SCH (08:16)
[2017-04-13] MEDS ORDERED: ONDANSETRON 4 MG/2 ML VIAL IVPUSH PRN ×2 (08:39→10:40)
[2017-04-13] MEDS ORDERED: PROMETHAZINE HCL 25 MG/1 ML VIAL IVPB PRN (08:39)
[2017-04-13] MEDS ORDERED: LACTATED RINGERS SOLUTION 1,000 ML IV SCH (08:45)
[2017-04-13] MEDS ORDERED: MIDAZOLAM HCL 2 MG/2 ML SINGLE DOSE VIAL ONE (08:45)
[2017-04-13] MEDS ORDERED: PROPOFOL 20 ML ONE (08:45)
[2017-04-13] MEDS ORDERED: SODIUM CHLORIDE 0.9% P/F 10 ML VIAL IJ ONE (09:01)
[2017-04-13] MEDS ORDERED: ceFAZolin SODIUM 1 GM VIAL ONE (09:01)
[2017-04-13] MEDS ORDERED: VANCOMYCIN 1,000 MG VIAL (RESTRICTED TO ID ONLY) ONE (09:01)
[2017-04-13] MEDS ORDERED: ceFAZolin SODIUM 1 GM VIAL IVPB ONE (09:03)
[2017-04-13] MEDS ORDERED: VANCOMYCIN 1,000 MG VIAL (RESTRICTED TO ID ONLY) IVPB ONE (09:06)
[2017-04-13] MEDS ORDERED: DEXAMETHASONE SOD PHOSPHATE 4 MG/1 ML VIAL ONE (09:07)
[2017-04-13] MEDS ORDERED: ONDANSETRON 4 MG/2 ML VIAL ONE (09:07)
[2017-04-13] MEDS ORDERED: BUPIVACAINE HCL/PF 0.5% (5MG/ML) 10 ML VIAL IJ ONE (09:45)
[2017-04-13] MEDS: DONEPEZIL HCL 10 MG TABLET (FP) PO SCH (09:53)
[2017-04-13] MEDS: ASPIRIN 81 MG CHEWABLE TABLETS PO SCH (09:53)
[2017-04-13] MEDS: MULTIVITAMINS (DAILY MVI) TABLET (FP) PO SCH (09:54)
[2017-04-13] MEDS: MEMANTINE HCL 5 MG TABLET (UD) PO SCH ×2 (09:54→21:48)
[2017-04-13] MEDS: OLANZapine 5 MG TABLET PO SCH ×2 (09:54→21:48)
[2017-04-13] MEDS: PANTOPRAZOLE 40 MG TABLET (FP) PO SCH (09:54)
[2017-04-13] MEDS: ASCORBIC ACID 250 MG TABLET (FP) PO SCH (09:54)
[2017-04-13] MEDS: NEBIVOLOL 10 MG TABLET (FP) PO SCH (09:54)
[2017-04-13] MEDS ORDERED: SODIUM CHLORIDE 1,000 ML IV SCH (10:30)
[2017-04-13] MEDS ORDERED: ACETAMINOPHEN 325 MG TABLET (FP) PO PRN (10:40)
[2017-04-13] MEDS ORDERED: METOCLOPRAMIDE HCL 10 MG TABLET (FP) PO SCH (11:00)
--- NOTE | 2017-04-13 12:59 | OP ---
Operative Note - Note: Operative Date: 04/13/17 Pre-Operative Diagnosis: normal pressure hydrocephalus Operation: Right ventriculo-peritoneal shunt revision Post-Operative Diagnosis: Same as Pre-op Surgeon: Jorge Roca Gemologist: Angela Costa Anesthesiologist/MONUMENT ERECTOR: Papito Wheeler Anesthesia: MAC Specimens Removed: partial proximal shunt Estimated Blood Loss (mls): 10 Fluid Volume Replaced (mls): 400 Operative Report Dictated: Yes
--- NOTE | 2017-04-13 13:01 | SURG ---
Surgery Channel Opener Outsoles Note Channel Opener Outsoles: Angela Costa PA-C Date of Service: 04/13/17 Diagnosis: Normal pressure hydrocephalus Procedure: right proximal ventriculo-peritoneal shunt revision I was present for the entirety of the operative procedure. For further detail, please refer to operative report. Visit type - Case Type Case Type: ED Admission - Emergency Emergency Visit: Yes ED Registration Date: 04/06/17 Care time: The patient presented to the Emergency Department on the above date and was hospitalized for further evaluation of their emergent condition. - New patient This patient is new to me today: Yes Date on this admission: 04/13/17
[2017-04-13 13:24] LABS: ANION GAP 7 (8-16); BLOOD UREA NITROGEN 47 mg/dL (7-18); CALCIUM 8.7 mg/dL (8.5-10.1); CHLORIDE 108 mmol/L (98-107); CO2 27 mmol/L (21-32); CREATININE 1.8 mg/dL (0.7-1.3); GLUCOSE,RANDOM 102 mg/dL (74-106); POTASSIUM 5.5 mmol/L (3.5-5.1); SODIUM 142 mmol/L (136-145)
--- NOTE | 2017-04-13 13:52 | PN ---
Progress Note, Physician Chief Complaint: Confusion, weakness History of Present Illness: In OR at this time Right ventriculo-peritoneal shunt revision today Swallow eval done- recommended soft diet with thin liquids Seen by PT- moderate assistance of 2 people prefers the patient to go to [facility] for SNF - Current Medication List Current Medications: Active Medications Acetaminophen (Tylenol -) 650 mg PO Q6H PRN PRN Reason: PAIN LEVEL 1-5 Amino Acids (Prosource No Carb Liquid Pkt) 30 ml PO BID@0800,1730 [facility] Ascorbic Acid (Vitamin C -) 250 mg PO DAILY [facility] Aspirin (Asa -) 81 mg PO DAILY [facility] Donepezil HCl (Aricept -) 10 mg PO DAILY [facility] Fentanyl (Sublimaze Injection -) 50 mcg IVPUSH [id number] PRN PRN Reason: PAIN-PACU ORDER X 4 DOSES ONLY Sodium Chloride (Normal Saline -) 1,000 mls @ 75 mls/hr IV ASDIR [facility] Last Admin: 04/13/17 12:37 Dose: Not Given Cefazolin Sodium (Ancef -) 0.5 gm in 10 mls @ 120 mls/hr IVPUSH ONCE ONE Stop: 04/13/17 17:04 Memantine (Namenda -) 5 mg PO BID [facility] Multivitamins/Minerals/Vitamin C (Tab-A-Vit -) 1 tab PO DAILY [facility] Nebivolol (Bystolic -) 10 mg PO DAILY [facility] Olanzapine (Zyprexa -) 5 mg PO BID [facility] Ondansetron HCl (Zofran Injection) 4 mg IVPUSH Q6H PRN PRN Reason: NAUSEA AND/OR VOMITING Pantoprazole Sodium (Protonix -) 40 mg PO DAILY [facility] Rosuvastatin Calcium (Crestor -) 20 mg PO HS [facility] Tamsulosin HCl (Flomax -) 0.4 mg PO DAILY@0830 [facility] - Objective Vital Signs: Vital Signs Temperature 98.1 F 04/13/17 11:59 Pulse Rate 56 L 04/13/17 11:59 Respiratory Rate 20 04/13/17 11:59 Blood Pressure 147/69 04/13/17 11:59 O2 Sat by Pulse Oximetry (%) 95 04/13/17 11:59 Labs: CBC, BMP 04/12/17 06:47 04/13/17 12:40 INR, PTT INR 0.97 (0.82-1.09) 04/05/17 20:30 Problem List - Problems (1) GARRISON (acute kidney injury) Assessment/Plan: -seen by Nephrology -encourage PO intake -IVF -follow trend Code(s): N17.9 - ACUTE KIDNEY FAILURE, UNSPECIFIED (2) Altered mental status Assessment/Plan: -seen by Neurosurgery, neurology and psychiatry -on zyprexa, donepezil and namenda -shunt placement yesterday, feels the same Code(s): R41.82 - ALTERED MENTAL STATUS, UNSPECIFIED (3) NPH (normal pressure hydrocephalus) Assessment/Plan: -seen by Neurosurgery -ventriculoperitoneal shunt placement revision today Code(s): G91.2 - (IDIOPATHIC) NORMAL PRESSURE HYDROCEPHALUS (4) Unsteady gait Assessment/Plan: -seen by Physical therapy, needed moderate assistance of 2 people -candidate for SNF Code(s): R26.81 - UNSTEADINESS ON FEET Assessment/Plan see problem list
--- NOTE | 2017-04-13 15:02 | PN ---
Progress Note, Physician History of Present Illness: Pt seen and examined at bedside. He went for repositioning of the MERCHANDISER shunt today. - Current Medication List Current Medications: Active Medications Acetaminophen (Tylenol -) 650 mg PO Q6H PRN PRN Reason: PAIN LEVEL 1-5 Amino Acids (Prosource No Carb Liquid Pkt) 30 ml PO BID@0800,1730 [facility] Ascorbic Acid (Vitamin C -) 250 mg PO DAILY [facility] Aspirin (Asa -) 81 mg PO DAILY [facility] Donepezil HCl (Aricept -) 10 mg PO DAILY [facility] Fentanyl (Sublimaze Injection -) 50 mcg IVPUSH [id number] PRN PRN Reason: PAIN-PACU ORDER X 4 DOSES ONLY Sodium Chloride (Normal Saline -) 1,000 mls @ 75 mls/hr IV ASDIR [facility] Last Admin: 04/13/17 12:37 Dose: Not Given Cefazolin Sodium (Ancef -) 0.5 gm in 10 mls @ 120 mls/hr IVPUSH ONCE ONE Stop: 04/13/17 17:04 Memantine (Namenda -) 5 mg PO BID [facility] Multivitamins/Minerals/Vitamin C (Tab-A-Vit -) 1 tab PO DAILY [facility] Nebivolol (Bystolic -) 10 mg PO DAILY [facility] Olanzapine (Zyprexa -) 5 mg PO BID [facility] Ondansetron HCl (Zofran Injection) 4 mg IVPUSH Q6H PRN PRN Reason: NAUSEA AND/OR VOMITING Pantoprazole Sodium (Protonix -) 40 mg PO DAILY [facility] Rosuvastatin Calcium (Crestor -) 20 mg PO HS [facility] Tamsulosin HCl (Flomax -) 0.4 mg PO DAILY@0830 [facility] - Objective Vital Signs: Vital Signs Temperature 98.1 F 04/13/17 11:59 Pulse Rate 56 L 04/13/17 11:59 Respiratory Rate 20 04/13/17 11:59 Blood Pressure 147/69 04/13/17 11:59 O2 Sat by Pulse Oximetry (%) 95 04/13/17 11:59 Constitutional: Yes: Calm Eyes: Yes: Conjunctiva Clear HENT: Yes: Atraumatic Neck: Yes: Supple Cardiovascular: Yes: S1, S2 Respiratory: Yes: CTA Bilaterally Gastrointestinal: Yes: Soft Genitourinary: Yes: WNL Musculoskeletal: Yes: WNL Edema: No Neurological: Yes: Oriented, Pre-Existing Deficit Labs: CBC, BMP 04/12/17 06:47 04/13/17 12:40 INR, PTT INR 0.97 (0.82-1.09) 04/05/17 20:30 Problem List - Problems (1) CKD (chronic kidney disease) Code(s): N18.9 - CHRONIC KIDNEY DISEASE, UNSPECIFIED (2) NPH (normal pressure hydrocephalus) Code(s): G91.2 - (IDIOPATHIC) NORMAL PRESSURE HYDROCEPHALUS (3) UTI (urinary tract infection) Code(s): N39.0 - URINARY TRACT INFECTION, SITE NOT SPECIFIED Qualifiers: Urinary tract infection type: acute cystitis (4) Unsteady gait Code(s): R26.81 - UNSTEADINESS ON FEET (5) Weakness Code(s): R53.1 - WEAKNESS Assessment/Plan Current Medications Generic Name Dose Route Start Last Admin Trade Name Freq PRN Reason Stop Dose Admin Acetaminophen 650 mg 04/13/17 10:40 Tylenol - PO Q6H PRN PAIN LEVEL 1-5 Amino Acids 30 ml 04/13/17 17:30 Prosource No Carb Liquid Pkt PO BID@0800,1730 [facility] Ascorbic Acid 250 mg 04/14/17 10:00 Vitamin C - PO DAILY [facility] Aspirin 81 mg 04/14/17 10:00 Asa - PO DAILY [facility] Donepezil HCl 10 mg 04/14/17 10:00 Aricept - PO DAILY [facility] Fentanyl 50 mcg 04/13/17 10:40 Sublimaze Injection - IVPUSH [id number] PRN PAIN-PACU ORDER X 4 DOSES ONLY Sodium Chloride 1,000 mls @ 75 mls/hr 04/13/17 10:30 04/13/17 12:37 Normal Saline - IV Not Given ASDIR [facility] Cefazolin Sodium 0.5 gm in 10 mls @ 120 mls/hr 04/13/17 17:00 Ancef - IVPUSH 04/13/17 17:04 ONCE ONE Memantine 5 mg 04/13/17 22:00 Namenda - PO BID [facility] Multivitamins/Minerals/Vitamin C 1 tab 04/14/17 10:00 Tab-A-Vit - PO DAILY [facility] Nebivolol 10 mg 04/14/17 10:00 Bystolic - PO DAILY [facility] Olanzapine 5 mg 04/13/17 22:00 Zyprexa - PO BID [facility] Ondansetron HCl 4 mg 04/13/17 10:40 Zofran Injection IVPUSH Q6H PRN NAUSEA AND/OR VOMITING Pantoprazole Sodium 40 mg 04/14/17 10:00 Protonix - PO DAILY [facility] Rosuvastatin Calcium 20 mg 04/13/17 22:00 Crestor - PO HS [facility] Tamsulosin HCl 0.4 mg 04/14/17 08:30 Flomax - PO DAILY@0830 [facility] Impression 1. CKD 2. PKD 3. UTI 4. HTN 5. weakness 6. s/p fall 7. prostate cancer 8. dementia 9. hyperlipidemia 10. hyperkalemia Plan - chage fluids to 1/2 ns - increase rate of 100 cc - discussed with and son - avoid kayexylate for now - low potassium diet - creatinine is improved Dr Parra
[2017-04-13] MEDS ORDERED: SODIUM BICARBONATE 8.4% 50 MEQ/50 ML DISP.SYRIN IVPUSH ONE (15:05)
[2017-04-13] MEDS ORDERED: SODIUM CHLORIDE 0.45% 1,000 ML IV SCH (15:15)
[2017-04-13] MEDS ORDERED: CEFAZOLIN IVPUSH ONE (17:00)
[2017-04-13] MEDS ORDERED: DISP SYRIN IVPUSH ONE (17:00)
[2017-04-13] MEDS ORDERED: PUSH IVPUSH ONE (17:00)
[2017-04-13] MEDS ORDERED: FUROSEMIDE 20 MG TABLET (FP) PO ONE (18:00)
[2017-04-13] MEDS ORDERED: SODIUM BICARBONATE 8.4% 50 MEQ/50 ML VIAL IVPUSH ONE (18:00)
[2017-04-13] MEDS ORDERED: ROSUVASTATIN CA 10 MG TABLET (FP) ONE (21:24)
[2017-04-13] MEDS: ROSUVASTATIN CA 20 MG TABLET (FP) PO SCH (21:48)
[2017-04-13] MEDS ORDERED: SODIUM BICARBONATE 650 MG TABLET PO SCH (22:00)
[2017-04-14] MEDS: SODIUM CHLORIDE 0.45% 1,000 ML IV SCH ×3 (01:30→17:36)
--- NOTE | 2017-04-14 08:29 | PN ---
Progress Note (short form) - Note Progress Note: Post op day#1.S/P Revesion of proximal V-P shunt under GA uneventful.Patient stable.No any anesthesia related problem.Patient DC from the anesthesia care.
[2017-04-14] MEDS ORDERED: PT OWN MED DRAWER 7, Y5N ONE ×2 (10:10→22:25)
[2017-04-14] MEDS: MEMANTINE HCL 5 MG TABLET (UD) PO SCH ×2 (10:12→22:32)
[2017-04-14] MEDS: TAMSULOSIN HCL 0.4 MG CAP.ER.24H (FP) PO SCH (10:12)
[2017-04-14] MEDS: PANTOPRAZOLE 40 MG TABLET (FP) PO SCH (10:12)
[2017-04-14] MEDS: MULTIVITAMINS (DAILY MVI) TABLET (FP) PO SCH (10:12)
[2017-04-14] MEDS: AMINO ACIDS/PROTEIN HYDROLYS 30 ML LIQUID.PKT PO SCH ×2 (10:12→17:36)
[2017-04-14] MEDS: ASPIRIN 81 MG CHEWABLE TABLETS PO SCH (10:12)
[2017-04-14] MEDS: OLANZapine 5 MG TABLET PO SCH ×2 (10:13→22:32)
[2017-04-14] MEDS: NEBIVOLOL 10 MG TABLET (FP) PO SCH (10:13)
[2017-04-14] MEDS: DONEPEZIL HCL 10 MG TABLET (FP) PO SCH (10:13)
[2017-04-14] MEDS: ASCORBIC ACID 250 MG TABLET (FP) PO SCH (10:13)
[2017-04-14 15:03] LABS: ANION GAP 6 (8-16); BLOOD UREA NITROGEN 49 mg/dL (7-18); CHLORIDE 102 mmol/L (98-107); CO2 29 mmol/L (21-32); CREATININE 1.7 mg/dL (0.7-1.3); GLUCOSE,RANDOM 95 mg/dL (74-106); POTASSIUM 4.1 mmol/L (3.5-5.1); SODIUM 137 mmol/L (136-145)
--- NOTE | 2017-04-14 15:17 | EKG ---
Test Reason : Blood Pressure : / mmHG Vent. 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
--- NOTE | 2017-04-14 16:07 | PN ---
Progress Note, Physician Chief Complaint: Confusion, weakness History of Present Illness: In OR at this time Right ventriculo-peritoneal shunt revision tolerated well Swallow eval done- recommended soft diet with thin liquids Seen by PT- moderate assistance of 2 people prefers the patient to go to [facility] for SNF hyperkalemia resolved seen by nephrology IVF - Current Medication List Current Medications: Active Medications Acetaminophen (Tylenol -) 650 mg PO Q6H PRN PRN Reason: PAIN LEVEL 1-5 Last Admin: 04/13/17 16:17 Dose: 650 mg Amino Acids (Prosource No Carb Liquid Pkt) 30 ml PO BID@0800,1730 [facility] Last Admin: 04/14/17 10:12 Dose: 30 ml Ascorbic Acid (Vitamin C -) 250 mg PO DAILY [facility] Last Admin: 04/14/17 10:13 Dose: 250 mg Aspirin (Asa -) 81 mg PO DAILY [facility] Last Admin: 04/14/17 10:12 Dose: 81 mg Donepezil HCl (Aricept -) 10 mg PO DAILY [facility] Last Admin: 04/14/17 10:13 Dose: 10 mg Fentanyl (Sublimaze Injection -) 50 mcg IVPUSH [id number] PRN PRN Reason: PAIN-PACU ORDER X 4 DOSES ONLY Sodium Chloride (1/2 Normal Saline) 1,000 mls @ 115 mls/hr IV ASDIR [facility] Last Admin: 04/14/17 10:14 Dose: 115 mls/hr Memantine (Namenda -) 5 mg PO BID [facility] Last Admin: 04/14/17 10:12 Dose: 5 mg Multivitamins/Minerals/Vitamin C (Tab-A-Vit -) 1 tab PO DAILY [facility] Last Admin: 04/14/17 10:12 Dose: 1 tab Nebivolol (Bystolic -) 10 mg PO DAILY [facility] Last Admin: 04/14/17 10:13 Dose: 10 mg Olanzapine (Zyprexa -) 5 mg PO BID [facility] Last Admin: 04/14/17 10:13 Dose: 5 mg Ondansetron HCl (Zofran Injection) 4 mg IVPUSH Q6H PRN PRN Reason: NAUSEA AND/OR VOMITING Pantoprazole Sodium (Protonix -) 40 mg PO DAILY [facility] Last Admin: 04/14/17 10:12 Dose: 40 mg Rosuvastatin Calcium (Crestor -) 20 mg PO HS [facility] Last Admin: 04/13/17 21:48 Dose: 20 mg Tamsulosin HCl (Flomax -) 0.4 mg PO DAILY@0830 [facility] Last Admin: 04/14/17 10:12 Dose: 0.4 mg - Objective Vital Signs: Vital Signs Temperature 97.6 F 04/14/17 14:52 Pulse Rate 53 L 04/14/17 14:52 Respiratory Rate 20 04/14/17 14:52 Blood Pressure 142/66 04/14/17 14:52 O2 Sat by Pulse Oximetry (%) 95 04/14/17 09:00 Constitutional: Yes: Well Nourished, No Distress, Calm Cardiovascular: Yes: Regular Rate and Rhythm Respiratory: Yes: Regular Gastrointestinal: Yes: WNL, Normal Bowel Sounds, Soft, Abdomen, Obese Musculoskeletal: Yes: WNL Extremities: Yes: WNL Edema: No Peripheral Pulses WNL: Yes Neurological: Yes: Alert, Pre-Existing Deficit Psychiatric: Yes: Alert Labs: CBC, BMP 04/12/17 06:47 04/14/17 13:30 INR, PTT INR 0.97 (0.82-1.09) 04/05/17 20:30 Problem List - Problems (1) GARRISON (acute kidney injury) Assessment/Plan: -seen by Nephrology -encourage PO intake -IVF -follow trend Code(s): N17.9 - ACUTE KIDNEY FAILURE, UNSPECIFIED (2) Altered mental status Assessment/Plan: -seen by Neurosurgery, neurology and psychiatry -on zyprexa, donepezil and namenda -shunt placement tolerating well Code(s): R41.82 - ALTERED MENTAL STATUS, UNSPECIFIED (3) NPH (normal pressure hydrocephalus) Assessment/Plan: -seen by Neurosurgery -ventriculoperitoneal shunt placement revision tolerating well Code(s): G91.2 - (IDIOPATHIC) NORMAL PRESSURE HYDROCEPHALUS (4) Unsteady gait Assessment/Plan: -seen by Physical therapy, needed moderate assistance of 2 people -candidate for SNF Code(s): R26.81 - UNSTEADINESS ON FEET (5) Hyperkalemia Assessment/Plan: -resolved -IVF -seen by Nephrology Code(s): E87.5 - HYPERKALEMIA (6) Renal insufficiency Assessment/Plan: improving Code(s): N28.9 - DISORDER OF KIDNEY AND URETER, UNSPECIFIED Assessment/Plan see problem list
--- NOTE | 2017-04-14 20:07 | PN ---
Progress Note (short form) - Note Progress Note: hyperkalemia chadwick Current Medications Acetaminophen (Tylenol -) 650 mg PO Q6H PRN PRN Reason: PAIN LEVEL 1-5 Last Admin: 04/13/17 16:17 Dose: 650 mg Amino Acids (Prosource No Carb Liquid Pkt) 30 ml PO BID@0800,1730 [facility] Last Admin: 04/14/17 17:36 Dose: 30 ml Ascorbic Acid (Vitamin C -) 250 mg PO DAILY [facility] Last Admin: 04/14/17 10:13 Dose: 250 mg Aspirin (Asa -) 81 mg PO DAILY [facility] Last Admin: 04/14/17 10:12 Dose: 81 mg Donepezil HCl (Aricept -) 10 mg PO DAILY [facility] Last Admin: 04/14/17 10:13 Dose: 10 mg Fentanyl (Sublimaze Injection -) 50 mcg IVPUSH [id number] PRN PRN Reason: PAIN-PACU ORDER X 4 DOSES ONLY Sodium Chloride (1/2 Normal Saline) 1,000 mls @ 115 mls/hr IV ASDIR [facility] Last Admin: 04/14/17 17:36 Dose: 115 mls/hr Memantine (Namenda -) 5 mg PO BID [facility] Last Admin: 04/14/17 10:12 Dose: 5 mg Multivitamins/Minerals/Vitamin C (Tab-A-Vit -) 1 tab PO DAILY [facility] Last Admin: 04/14/17 10:12 Dose: 1 tab Nebivolol (Bystolic -) 10 mg PO DAILY [facility] Last Admin: 04/14/17 10:13 Dose: 10 mg Olanzapine (Zyprexa -) 5 mg PO BID [facility] Last Admin: 04/14/17 10:13 Dose: 5 mg Ondansetron HCl (Zofran Injection) 4 mg IVPUSH Q6H PRN PRN Reason: NAUSEA AND/OR VOMITING Pantoprazole Sodium (Protonix -) 40 mg PO DAILY [facility] Last Admin: 04/14/17 10:12 Dose: 40 mg Rosuvastatin Calcium (Crestor -) 20 mg PO HS [facility] Last Admin: 04/13/17 21:48 Dose: 20 mg Tamsulosin HCl (Flomax -) 0.4 mg PO DAILY@0830 [facility] Last Admin: 04/14/17 10:12 Dose: 0.4 mg alert in nad Last Vital Signs Temp Pulse Resp BP Pulse Ox 97.6 F 53 L 20 142/66 95 04/14/17 14:52 04/14/17 14:52 04/14/17 14:52 04/14/17 14:52 04/14/17 09:00 lungs clear Heart reg Abd soft nontender Ext no edema CBC, BMP 04/12/17 06:47 04/14/17 13:30 IMP- s/p hyperkalemia s/p chadwick Plan- continue current rx
[2017-04-14] MEDS ORDERED: ROSUVASTATIN CA 10 MG TABLET (FP) ONE (22:25)
[2017-04-14] MEDS: ROSUVASTATIN CA 20 MG TABLET (FP) PO SCH (22:32)
[2017-04-15] MEDS: SODIUM CHLORIDE 0.45% 1,000 ML IV SCH ×2 (06:33→16:40)
[2017-04-15] MEDS: AMINO ACIDS/PROTEIN HYDROLYS 30 ML LIQUID.PKT PO SCH ×2 (08:00→17:05)
[2017-04-15] MEDS ORDERED: PT OWN MED DRAWER 7, Y5N ONE ×2 (10:17→21:03)
[2017-04-15] MEDS: TAMSULOSIN HCL 0.4 MG CAP.ER.24H (FP) PO SCH (11:03)
[2017-04-15] MEDS: ASPIRIN 81 MG CHEWABLE TABLETS PO SCH (11:03)
[2017-04-15] MEDS: MEMANTINE HCL 5 MG TABLET (UD) PO SCH ×2 (11:03→21:22)
[2017-04-15] MEDS: MULTIVITAMINS (DAILY MVI) TABLET (FP) PO SCH (11:03)
[2017-04-15] MEDS: DONEPEZIL HCL 10 MG TABLET (FP) PO SCH (11:03)
[2017-04-15] MEDS: ASCORBIC ACID 250 MG TABLET (FP) PO SCH (11:04)
[2017-04-15] MEDS: NEBIVOLOL 10 MG TABLET (FP) PO SCH (11:04)
[2017-04-15] MEDS: OLANZapine 5 MG TABLET PO SCH ×2 (11:04→21:23)
[2017-04-15] MEDS: PANTOPRAZOLE 40 MG TABLET (FP) PO SCH (11:07)
--- NOTE | 2017-04-15 12:09 | DS ---
Physical Examination Vital Signs: Vital Signs Temperature 98.5 F 04/15/17 09:10 Pulse Rate 59 L 04/15/17 09:10 Respiratory Rate 18 04/15/17 09:10 Blood Pressure 161/81 04/15/17 09:10 O2 Sat by Pulse Oximetry (%) 94 L 04/14/17 21:00 Constitutional: Yes: Well Nourished, No Distress, Calm Cardiovascular: Yes: Regular Rate and Rhythm Respiratory: Yes: Regular Neurological: Yes: Alert Psychiatric: Yes: Alert Labs: CBC, BMP 04/12/17 06:47 04/14/17 13:30 Discharge Summary Reason For Visit: UTI Current Active Problems GARRISON (acute kidney injury) (Acute) Acute metabolic encephalopathy (Acute) Altered mental status (Acute) CKD (chronic kidney disease) (Acute) Coughing (Acute) DVT prophylaxis (Acute) Dementia (Acute) Hyperkalemia (Acute) Hypertension (Acute) NPH (normal pressure hydrocephalus) (Acute) Renal insufficiency (Acute) UTI (urinary tract infection) (Acute) Unsteady gait (Acute) Hospital Course: Patient is an 86 year old male with multiple medical problems who was admitted with an altered mental status. I have seen him on several days and he has a fluctuating level of interaction ranging from finding him asleep, to appropriately conversational to aggressive and argumentative with the nursing staff during some elements of his care. I spoke with his and son and also reviewed some records which were brought in regarding his past care and evaluations at other institutions. I also noted Dr. Francisco Huston's consultation and the opinions of Dr. Simeon. 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 He has gait ataxia as well as urinary incontinence. CT of the head shows fairly impressive ventriculomegally disproportionate to his atrophy. This scenario strongly suggests Normal Pressure Hydrocephalus. During his stay at the hospital, pt had shunt placed, which he tolerated well and is doing well. Patient will need follow up with Neurosurgery in 2 weeks for staple removal. Condition: Stable - Instructions Referrals: Natalya Rae MD [Primary Care Provider] - Disposition: [facility] - Home Medications Comprehensive Discharge Medication List: Ambulatory Orders Nebivolol HCl [Bystolic] 10 mg PO DAILY 03/18/14 Rosuvastatin Calcium [Crestor] 40 mg PO DAILY 03/18/14 Aspirin [ASA -] 81 mg PO DAILY 04/05/17 Clonazepam [Klonopin] 1 mg PO HS 04/05/17 Donepezil HCl [Aricept -] 10 mg PO DAILY 04/05/17 Escitalopram Oxalate [Lexapro -] 10 mg PO DAILY 04/05/17 Febuxostat [Uloric -] 40 mg PO DAILY 04/05/17 Hydralazine HCl [Apresoline -] 10 mg PO BID 04/05/17 Memantine HCl/Donepezil HCl [Namzaric 14 mg-10 mg Capsule] 1 each PO DAILY 04/05 Mirabegron [Myrbetriq] 25 mg PO DAILY 04/05/17
--- NOTE | 2017-04-15 19:30 | PN ---
Progress Note (short form) - Note Progress Note: hyperkalemia chadwick Current Medications Acetaminophen (Tylenol -) 650 mg PO Q6H PRN PRN Reason: PAIN LEVEL 1-5 Last Admin: 04/13/17 16:17 Dose: 650 mg Amino Acids (Prosource No Carb Liquid Pkt) 30 ml PO BID@0800,1730 [facility] Last Admin: 04/15/17 17:05 Dose: 30 ml Ascorbic Acid (Vitamin C -) 250 mg PO DAILY [facility] Last Admin: 04/15/17 11:04 Dose: 250 mg Aspirin (Asa -) 81 mg PO DAILY [facility] Last Admin: 04/15/17 11:03 Dose: 81 mg Donepezil HCl (Aricept -) 10 mg PO DAILY [facility] Last Admin: 04/15/17 11:03 Dose: 10 mg Fentanyl (Sublimaze Injection -) 50 mcg IVPUSH [id number] PRN PRN Reason: PAIN-PACU ORDER X 4 DOSES ONLY Sodium Chloride (1/2 Normal Saline) 1,000 mls @ 115 mls/hr IV ASDIR [facility] Last Admin: 04/15/17 16:40 Dose: 115 mls/hr Memantine (Namenda -) 5 mg PO BID [facility] Last Admin: 04/15/17 21:22 Dose: 5 mg Multivitamins/Minerals/Vitamin C (Tab-A-Vit -) 1 tab PO DAILY [facility] Last Admin: 04/15/17 11:03 Dose: 1 tab Nebivolol (Bystolic -) 10 mg PO DAILY [facility] Last Admin: 04/15/17 11:04 Dose: 10 mg Olanzapine (Zyprexa -) 5 mg PO BID [facility] Last Admin: 04/15/17 21:23 Dose: 5 mg Ondansetron HCl (Zofran Injection) 4 mg IVPUSH Q6H PRN PRN Reason: NAUSEA AND/OR VOMITING Pantoprazole Sodium (Protonix -) 40 mg PO DAILY [facility] Last Admin: 04/15/17 11:07 Dose: 40 mg Rosuvastatin Calcium (Crestor -) 20 mg PO HS [facility] Last Admin: 04/15/17 21:22 Dose: 20 mg Tamsulosin HCl (Flomax -) 0.4 mg PO DAILY@0830 [facility] Last Admin: 04/15/17 11:03 Dose: 0.4 mg Last Vital Signs Temp Pulse Resp BP Pulse Ox 98.1 F 55 L 18 147/75 95 04/15/17 14:47 04/15/17 14:47 04/15/17 09:10 04/15/17 14:47 04/15/17 11:00 alert in nad lungs clear Heart reg Abd soft nontender Ext no edema CBC, BMP 04/12/17 06:47 04/14/17 13:30 IMP- s/p hyperkalemia- resolved s/p chadwick resolving Plan- follow up labs continue current rx
[2017-04-15] MEDS ORDERED: ROSUVASTATIN CA 10 MG TABLET (FP) ONE (21:03)
[2017-04-15] MEDS: ROSUVASTATIN CA 20 MG TABLET (FP) PO SCH (21:22)
[2017-04-16 08:22] LABS: ALBUMIN 2.9 g/dl (3.4-5.0); ANION GAP 6 (8-16); BLOOD UREA NITROGEN 40 mg/dL (7-18); CALCIUM 8.5 mg/dL (8.5-10.1); CHLORIDE 106 mmol/L (98-107); CO2 28 mmol/L (21-32); CREATININE 1.6 mg/dL (0.7-1.3); GLUCOSE,RANDOM 94 mg/dL (74-106); POTASSIUM 4.4 mmol/L (3.5-5.1); SGOT/AST 20 U/L (15-37); SGPT/ALT 16 U/L (12-78); SODIUM 140 mmol/L (136-145)
[2017-04-16 08:23] LABS: ALK PHOS 74 U/L (45-117); BILIRUBIN,TOTAL 0.6 mg/dL (0.2-1.0); TOT PROT 6.1 g/dl (6.4-8.2)
[2017-04-16] MEDS: TAMSULOSIN HCL 0.4 MG CAP.ER.24H (FP) PO SCH (08:39)
[2017-04-16] MEDS: AMINO ACIDS/PROTEIN HYDROLYS 30 ML LIQUID.PKT PO SCH ×2 (08:39→17:57)
[2017-04-16] MEDS ORDERED: PT OWN MED DRAWER 7, Y5N ONE ×2 (10:25→17:56)
[2017-04-16] MEDS: MULTIVITAMINS (DAILY MVI) TABLET (FP) PO SCH (10:27)
[2017-04-16] MEDS: DONEPEZIL HCL 10 MG TABLET (FP) PO SCH (10:27)
[2017-04-16] MEDS: PANTOPRAZOLE 40 MG TABLET (FP) PO SCH (10:27)
[2017-04-16] MEDS: ASPIRIN 81 MG CHEWABLE TABLETS PO SCH (10:27)
[2017-04-16] MEDS: OLANZapine 5 MG TABLET PO SCH (10:27)
[2017-04-16] MEDS: NEBIVOLOL 10 MG TABLET (FP) PO SCH (10:27)
[2017-04-16] MEDS: MEMANTINE HCL 5 MG TABLET (UD) PO SCH (10:27)
[2017-04-16] MEDS: ASCORBIC ACID 250 MG TABLET (FP) PO SCH (10:28)
--- NOTE | 2017-04-16 12:27 | PN ---
Progress Note, Physician Chief Complaint: patient was not able to go to [facility] yesterday he is being evaluated by andrew today - Current Medication List Current Medications: Active Medications Acetaminophen (Tylenol -) 650 mg PO Q6H PRN PRN Reason: PAIN LEVEL 1-5 Last Admin: 04/13/17 16:17 Dose: 650 mg Amino Acids (Prosource No Carb Liquid Pkt) 30 ml PO BID@0800,1730 [facility] Last Admin: 04/16/17 08:39 Dose: 30 ml Ascorbic Acid (Vitamin C -) 250 mg PO DAILY [facility] Last Admin: 04/16/17 10:28 Dose: 250 mg Aspirin (Asa -) 81 mg PO DAILY [facility] Last Admin: 04/16/17 10:27 Dose: 81 mg Donepezil HCl (Aricept -) 10 mg PO DAILY [facility] Last Admin: 04/16/17 10:27 Dose: 10 mg Fentanyl (Sublimaze Injection -) 50 mcg IVPUSH [id number] PRN PRN Reason: PAIN-PACU ORDER X 4 DOSES ONLY Sodium Chloride (1/2 Normal Saline) 1,000 mls @ 115 mls/hr IV ASDIR [facility] Last Admin: 04/15/17 16:40 Dose: 115 mls/hr Memantine (Namenda -) 5 mg PO BID [facility] Last Admin: 04/16/17 10:27 Dose: 5 mg Multivitamins/Minerals/Vitamin C (Tab-A-Vit -) 1 tab PO DAILY [facility] Last Admin: 04/16/17 10:27 Dose: 1 tab Nebivolol (Bystolic -) 10 mg PO DAILY [facility] Last Admin: 04/16/17 10:27 Dose: 10 mg Olanzapine (Zyprexa -) 5 mg PO BID [facility] Last Admin: 04/16/17 10:27 Dose: 5 mg Ondansetron HCl (Zofran Injection) 4 mg IVPUSH Q6H PRN PRN Reason: NAUSEA AND/OR VOMITING Pantoprazole Sodium (Protonix -) 40 mg PO DAILY [facility] Last Admin: 04/16/17 10:27 Dose: 40 mg Rosuvastatin Calcium (Crestor -) 20 mg PO HS [facility] Last Admin: 04/15/17 21:22 Dose: 20 mg Tamsulosin HCl (Flomax -) 0.4 mg PO DAILY@0830 [facility] Last Admin: 04/16/17 08:39 Dose: 0.4 mg - Objective Vital Signs: Vital Signs Temperature 98.9 F 04/16/17 10:00 Pulse Rate 61 04/16/17 10:00 Respiratory Rate 18 04/16/17 09:00 Blood Pressure 149/59 04/16/17 10:00 O2 Sat by Pulse Oximetry (%) 94 L 04/16/17 09:00 Constitutional: Yes: Calm Neck: Yes: Trachea Midline Cardiovascular: Yes: Regular Rate and Rhythm, S1, S2 Respiratory: Yes: CTA Bilaterally Neurological: Yes: Alert, Oriented Labs: CBC, BMP 04/12/17 06:47 04/16/17 07:15 INR, PTT INR 0.97 (0.82-1.09) 04/05/17 20:30 Problem List - Problems (1) NPH (normal pressure hydrocephalus) Assessment/Plan: s/p shunt placement needs to FU in [address] ramsey for jeni removal Code(s): G91.2 - (IDIOPATHIC) NORMAL PRESSURE HYDROCEPHALUS (2) Dementia Assessment/Plan: nameda and aricept NPH s/p shunt placement Code(s): F03.90 - UNSPECIFIED DEMENTIA WITHOUT BEHAVIORAL DISTURBANCE (3) Coughing Assessment/Plan: swallow eval noted dysphagia chopped diet Code(s): R05 - COUGH (4) CKD (chronic kidney disease) Assessment/Plan: creatinine improved to 1.6 Code(s): N18.9 - CHRONIC KIDNEY DISEASE, UNSPECIFIED (5) Weakness Assessment/Plan: being evaluated by Andrew Code(s): R53.1 - WEAKNESS Assessment/Plan dc plan today
[2017-04-16 14:52] VITALS: BP 147/92; PULSE 56; TEMP 98.8
--- NOTE | 2017-04-16 15:41 | PN ---
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 No coughing or signs of dysphagia observed or reported by staff. No coughing on medication with water via straw or mealtime. Monitor PO tolerance at [place]. Selected Entries 04/11/17 04/11/17 04/11/17 06:13 10:00 14:48 Breakfast Diet Tolerated Lunch Temperature 97.9 F 97.8 F 97.9 F 04/11/17 04/11/17 04/11/17 18:54 20:45 23:12 Breakfast Diet Tolerated Lunch Temperature 98.1 F 97.6 F 98.8 F 04/12/17 04/12/17 04/12/17 02:25 06:05 10:56 Breakfast 100% Diet Tolerated Lunch Temperature 97.5 F L 98.0 F 04/12/17 04/12/17 04/16/17 13:39 14:43 06:00 Breakfast Diet Tolerated Lunch 75% Temperature 97.7 F 98.4 F 04/16/17 04/16/17 10:00 14:00 Breakfast 75% Diet Tolerated Well Lunch 75% Temperature 98.9 F 98.8 F Laboratory Tests 04/12/17 06:47 WBC 9.9
[2017-04-16] MEDS ORDERED: SODIUM CHLORIDE 0.45% 1,000 ML IV SCH (16:17)
--- NOTE | 2017-04-16 16:17 | PN ---
Progress Note, Physician History of Present Illness: Pt seen and examined at bedside. He is more awake and alert today. - Current Medication List Current Medications: Active Medications Acetaminophen (Tylenol -) 650 mg PO Q6H PRN PRN Reason: PAIN LEVEL 1-5 Last Admin: 04/13/17 16:17 Dose: 650 mg Amino Acids (Prosource No Carb Liquid Pkt) 30 ml PO BID@0800,1730 [facility] Last Admin: 04/16/17 08:39 Dose: 30 ml Ascorbic Acid (Vitamin C -) 250 mg PO DAILY [facility] Last Admin: 04/16/17 10:28 Dose: 250 mg Aspirin (Asa -) 81 mg PO DAILY [facility] Last Admin: 04/16/17 10:27 Dose: 81 mg Donepezil HCl (Aricept -) 10 mg PO DAILY [facility] Last Admin: 04/16/17 10:27 Dose: 10 mg Fentanyl (Sublimaze Injection -) 50 mcg IVPUSH [id number] PRN PRN Reason: PAIN-PACU ORDER X 4 DOSES ONLY Sodium Chloride (1/2 Normal Saline) 1,000 mls @ 115 mls/hr IV ASDIR [facility] Last Admin: 04/15/17 16:40 Dose: 115 mls/hr Memantine (Namenda -) 5 mg PO BID [facility] Last Admin: 04/16/17 10:27 Dose: 5 mg Multivitamins/Minerals/Vitamin C (Tab-A-Vit -) 1 tab PO DAILY [facility] Last Admin: 04/16/17 10:27 Dose: 1 tab Nebivolol (Bystolic -) 10 mg PO DAILY [facility] Last Admin: 04/16/17 10:27 Dose: 10 mg Olanzapine (Zyprexa -) 5 mg PO BID [facility] Last Admin: 04/16/17 10:27 Dose: 5 mg Ondansetron HCl (Zofran Injection) 4 mg IVPUSH Q6H PRN PRN Reason: NAUSEA AND/OR VOMITING Pantoprazole Sodium (Protonix -) 40 mg PO DAILY [facility] Last Admin: 04/16/17 10:27 Dose: 40 mg Rosuvastatin Calcium (Crestor -) 20 mg PO HS [facility] Last Admin: 04/15/17 21:22 Dose: 20 mg Tamsulosin HCl (Flomax -) 0.4 mg PO DAILY@0830 [facility] Last Admin: 04/16/17 08:39 Dose: 0.4 mg - Objective Vital Signs: Vital Signs Temperature 98.8 F 04/16/17 14:00 Pulse Rate 56 L 04/16/17 14:00 Respiratory Rate 17 04/16/17 14:00 Blood Pressure 147/92 04/16/17 14:00 O2 Sat by Pulse Oximetry (%) 94 L 04/16/17 09:00 Constitutional: Yes: Calm Eyes: Yes: Conjunctiva Clear HENT: Yes: Atraumatic Cardiovascular: Yes: S1, S2 Respiratory: Yes: CTA Bilaterally Gastrointestinal: Yes: Soft Genitourinary: Yes: WNL Musculoskeletal: Yes: Muscle Weakness Edema: No Neurological: Yes: Oriented Psychiatric: Yes: Oriented Labs: CBC, BMP 04/12/17 06:47 04/16/17 07:15 INR, PTT INR 0.97 (0.82-1.09) 04/05/17 20:30 Problem List - Problems (1) CKD (chronic kidney disease) Code(s): N18.9 - CHRONIC KIDNEY DISEASE, UNSPECIFIED (2) NPH (normal pressure hydrocephalus) Code(s): G91.2 - (IDIOPATHIC) NORMAL PRESSURE HYDROCEPHALUS (3) UTI (urinary tract infection) Code(s): N39.0 - URINARY TRACT INFECTION, SITE NOT SPECIFIED Qualifiers: Urinary tract infection type: acute cystitis (4) Unsteady gait Code(s): R26.81 - UNSTEADINESS ON FEET (5) Weakness Code(s): R53.1 - WEAKNESS Assessment/Plan Current Medications Generic Name Dose Route Start Last Admin Trade Name Freq PRN Reason Stop Dose Admin Acetaminophen 650 mg 04/13/17 10:40 04/13/17 16:17 Tylenol - PO 650 mg Q6H PRN Administration PAIN LEVEL 1-5 Amino Acids 30 ml 04/13/17 17:30 04/16/17 08:39 Prosource No Carb Liquid Pkt PO 30 ml BID@0800,1730 [facility] Administration Ascorbic Acid 250 mg 04/14/17 10:00 04/16/17 10:28 Vitamin C - PO 250 mg DAILY [facility] Administration Aspirin 81 mg 04/14/17 10:00 04/16/17 10:27 Asa - PO 81 mg DAILY [facility] Administration Donepezil HCl 10 mg 04/14/17 10:00 04/16/17 10:27 Aricept - PO 10 mg DAILY [facility] Administration Fentanyl 50 mcg 04/13/17 10:40 Sublimaze Injection - IVPUSH [id number] PRN PAIN-PACU ORDER X 4 DOSES ONLY Sodium Chloride 1,000 mls @ 115 mls/hr 04/13/17 15:15 04/15/17 16:40 1/2 Normal Saline IV 115 mls/hr ASDIR [facility] Administration Memantine 5 mg 04/13/17 22:00 04/16/17 10:27 Namenda - PO 5 mg BID [facility] Administration Multivitamins/Minerals/Vitamin C 1 tab 04/14/17 10:00 04/16/17 10:27 Tab-A-Vit - PO 1 tab DAILY [facility] Administration Nebivolol 10 mg 04/14/17 10:00 04/16/17 10:27 Bystolic - PO 10 mg DAILY [facility] Administration Olanzapine 5 mg 04/13/17 22:00 04/16/17 10:27 Zyprexa - PO 5 mg BID [facility] Administration Ondansetron HCl 4 mg 04/13/17 10:40 Zofran Injection IVPUSH Q6H PRN NAUSEA AND/OR VOMITING Pantoprazole Sodium 40 mg 04/14/17 10:00 04/16/17 10:27 Protonix - PO 40 mg DAILY [facility] Administration Rosuvastatin Calcium 20 mg 04/13/17 22:00 04/15/17 21:22 Crestor - PO 20 mg HS [facility] Administration Tamsulosin HCl 0.4 mg 04/14/17 08:30 04/16/17 08:39 Flomax - PO 0.4 mg DAILY@0830 [facility] Administration Impression 1. CKD 2. PKD 3. UTI 4. HTN 5. weakness 6. s/p fall 7. prostate cancer 8. dementia 9. hyperlipidemia 10. hyperkalemia Plan - decrease rate of fluids - repeat labs in am - low potassium diet - creatinine is improved Dr Parra
== END 2017-04-16 18:44 | DRG 31 ==
LOC: JER 19:45 → SUPCPDRO 19:45 → JERBED 04-06 01:09 → UNDOADMIN 04-06 01:39 → JERBED 04-06 01:39 → J6S 04-06 11:20
PROVIDERS: ADMIT Family Medicine; ATTEND Family Medicine
PROC: 00160J6 Bypass Cerebral Ventricle to Peritoneal Cavity with Synthetic Substitute, Open Approach (ICD-10-PCS; principal; 2017-04-11 10:30)
PROC: 00W60JZ Revision of Synthetic Substitute in Cerebral Ventricle, Open Approach (ICD-10-PCS; 2017-04-13)
DX: G91.2 (Idiopathic) normal pressure hydrocephalus (principal); G93.41 Metabolic encephalopathy; N39.0 Urinary tract infection, site not specified; N17.9 Acute kidney failure, unspecified; R41.82 Altered mental status, unspecified; R26.81 Unsteadiness on feet; I10 Essential (primary) hypertension; R53.1 Weakness; N18.9 Chronic kidney disease, unspecified; I12.9 Hypertensive chronic kidney disease with stage 1 through stage 4 chronic kidney disease, or unspecified chronic kidney disease; F03.90 Unspecified dementia, unspecified severity, without behavioral disturbance, psychotic disturbance, mood disturbance, and anxiety; E87.5 Hyperkalemia; E78.5 Hyperlipidemia, unspecified; R05 Cough; Z85.46 Personal history of malignant neoplasm of prostate
CPT/HCPCS: 36415; 70450-TC; 71045-TC; 74230-TC; 80048; 80053; 80061; 81003; 81015; 82550; 83036; 83605; 83721; 84153; 84484; 85025; 85027; 85610; 85730; 86850; 86900; 86901; 87040; 87086; 92611-GN; 93005; 93010; 93306-TC; 94010; 94760; 97116-GP; 97161-GP; 99284-25

== ENCOUNTER 2017-06-18 14:14 | Inpatient (IN) | payer OTHER ==
--- NOTE | 2017-06-18 15:11 | PDOC ---
Attending Attestation - HPI HPI: 06/18/17 15:51 The patient is a 86-year-old male with a significant past medical history of dementia, hydrocephalus s/p OR[employer] P[employer]IC[employer] shunt placement, prostate CA s/p seeding, unknown heart surgery, kidney disease, and HTN, who presents to the emergency department from [place] for altered mental status. Dr. Roca, who operated on the patient, was concerned and sent the patient to the ER for a CT. The family states that the patient has been confused, irritable, and asking irrelevant questions over the last 24 hours. The family states that the patient has a history of UTIs, and notes that he typically presents with this type of confusion when he has a UTI. Family also states that the patient has been coughing for 3 weeks. The patient denies any complaints of pain. He denies chest pain, shortness of breath, headache and dizziness. The patient denies fever, chills, nausea, vomit , diarrhea and constipation. The patient denies dysuria, frequency, urgency and hematuria. - Physicial Exam PE: 06/18/17 15:51 GENERAL: Awake, alert, and oriented, in no acute distress HEAD: No signs of trauma EYES: PERRLA, EOMI, sclera anicteric, conjunctiva clear ENT: Auricles normal inspection, hearing grossly normal, nares patent, oropharynx clear without exudates. (+) Dry mucous membranes. NECK: Normal ROM, supple, no lymphadenopathy, JVD, or masses LUNGS: Breath sounds equal, clear to auscultation bilaterally. No wheezes, and no crackles HEART: Regular rate and rhythm, normal S1 and S2, no murmurs, rubs or gallops ABDOMEN: Soft, nontender, normoactive bowel sounds. No guarding, no rebound. No masses GENITOURINARY: Uncircumcised, normal external genitalia. EXTREMITIES: Normal range of motion, no edema. No clubbing or cyanosis. No cords, erythema, or tenderness NEUROLOGICAL: Cranial nerves II through XII grossly intact. Normal speech. (+) Altered mental status SKIN: Warm, Dry, normal turgor, no rashes or lesions noted. <Winifred Hamptonnda - Last Filed: 06/18/17 15:54> - Resident Resident Name: Slade Barry - ED Attending Attestation I have performed the following: I have examined & evaluated the patient, The case was reviewed & discussed with the resident, I agree w/resident's findings & plan, Exceptions are as noted - Medical Decision Making 06/18/17 15:10 I, Dr. Maryellen Elias, DO, attest that this document has been prepared under my direction and personally reviewed by me in its entirety. I further attest, that it accurately reflects all work, treatment, procedures and medical decision -making performed by me. 06/18/17 15:46 a/p: 86yo male from [place] - with altered ms -per son at bedside hx of UTIs that produce similar symptoms of altered ms -however, recent OR[employer] PIPE [employer]IC[employer] shunt placement by Dr. Schmitt -will obtain shunt series, head ct -will obtain labs, cultures -ua/ucx -will monitor and reassess 06/18/17 18:37 pt with a uti reviewed old cultures - no active growths - will start iv rocephin urine culture sent blood cultures sent will admit for iv abx and confusion <Maryellen Elias - Last Filed: 06/18/17 18:37>
[2017-06-18 15:49] LABS: BASO % 0.8 % (0-2.0); HEMATOCRIT 39.3 % (35.4-49); HEMOGLOBIN 12.7 GM/dL (11.7-16.9); LYMPH % 24.5 % (8-40); MCH 25.3 pg (25.7-33.7); MCHC 32.2 g/dl (32.0-35.9); MEAN CELL VOLUME 78.4 fl (80-96); MEAN PLT VOLUME 10.4 fl (7.5-11.1); MONO % 9.5 % (3.8-10.2); NEUT % 61.2 % (42.8-82.8); PLATELET COUNT 157 K/MM3 (134-434); RBC 5.02 M/mm3 (4.00-5.60); RDW 14.9 % (11.9-15.9); WHITE BLOOD COUNT 8.4 K/mm3 (4.0-10.0)
[2017-06-18 15:59] LABS: ALBUMIN 3.7 g/dl (3.4-5.0); ANION GAP 8 (8-16); BILIRUBIN,TOTAL 0.3 mg/dL (0.2-1.0); BLOOD UREA NITROGEN 47 mg/dL (7-18); CALCIUM 8.6 mg/dL (8.5-10.1); CHLORIDE 106 mmol/L (98-107); CO2 29 mmol/L (21-32); CREATININE 2.1 mg/dL (0.7-1.3); GLUCOSE,RANDOM 130 mg/dL (74-106); POTASSIUM 5.2 mmol/L (3.5-5.1); SGOT/AST 21 U/L (15-37); SGPT/ALT 25 U/L (12-78); SODIUM 143 mmol/L (136-145)
[2017-06-18 16:00] LABS: ALK PHOS 94 U/L (45-117); TOT PROT 6.7 g/dl (6.4-8.2)
--- NOTE | 2017-06-18 16:03 | PDOC ---
History of Present Illness - General Chief Complaint: Altered Mental Status Stated Complaint: AMS Time Seen by Provider: 06/18/17 14:37 History Source: Patient Exam Limitations: Clinical Condition, Dementia - History of Present Illness Initial Comments: 06/18/17 16:14 Patient is an 86M with history of prostate cancer s/p seeding, CAD s/p CABG, HTN , Normal Pressure Hydrocephalus s/p shunt by Dr Hyman here today complaining of altered mental status for the past 24 hours. Family reports that he's been more confused lately and that he gets like this when he has UTIs. They state that patient has been coughing for the past several days. Patient denies any complaints, and states that he doesn't want to be here. Denies fevers, chills, nausea, vomiting. Past History - Past Medical History Allergies/Adverse Reactions: Allergies Allergy/AdvReac Type Severity Reaction Status Date / Time No Known Allergies Allergy Verified 06/18/17 14:27 Home Medications: Ambulatory Orders Aspirin [ASA -] 81 mg PO DAILY 04/05/17 Donepezil HCl [Aricept -] 10 mg PO DAILY 04/05/17 Escitalopram Oxalate [Lexapro -] 10 mg PO DAILY 04/05/17 hydrALAZINE HCL [Apresoline -] 10 mg PO BID 04/05/17 Acetaminophen [Tylenol .Regular Strength -] 650 mg PO Q6H PRN tablet 04/15/17 Amino Acids/Protein Hydrolys [Prosource No Carb Liquid Pkt] 30 ml PO BID@0800, 1730 packet 04/15/17 Ascorbic Acid [Vitamin C -] 250 mg PO DAILY tablet 04/15/17 Multivitamins [Multivit ([facility] Formul[facility])] 1 tab PO DAILY tab 04/15/17 Olanzapine [Zyprexa -] 5 mg PO BID tablet 04/15/17 Pantoprazole Sodium [Protonix -] 40 mg PO DAILY tablet.ec 04/15/17 Rosuvastatin [Crestor -] 20 mg PO HS tablet 04/15/17 Tamsulosin HCl [Flomax -] 0.4 mg PO DAILY@0830 cap.er.24h 04/15/17 Clonazepam [Klonopin] 1 mg PO DAILY 06/18/17 Febuxostat [Uloric] 40 mg PO DAILY 06/18/17 Memantine HCl [Namenda -] 5 mg PO BID 06/18/17 Mirabegron [Myrbetriq] 25 mg PO DAILY 06/18/17 Nebivolol HCl [Bystolic] 10 mg PO DAILY 06/18/17 Anemia: No Asthma: No Cancer: Yes Cardiac Disorders: Yes CVA: No COPD: No CHF: No Dementia: Yes Diabetes: No GI Disorders: No Disorders: Yes (born w/ one kidney) HTN: Yes Hypercholesterolemia: Yes Liver Disease: No Psychiatric Problems: Yes (depression) Seizures: No Thyroid Disease: No - Surgical History Abdominal Surgery: No Appendectomy: No Cardiac Surgery: Yes (open heart sx for valve replacement 2005) Cholecystectomy: No Lung Surgery: No Neurologic Surgery: No - Suicide/Smoking/Psychosocial Hx Smoking History: Unknown if ever smoked Have you smoked in the past 12 months: No If you are a former smoker, when did you quit?: 1967 Information on smoking cessation initiated: No Hx Alcohol Use: No Drug/Substance Use Hx: No Substance Use Type: None Review of Systems - Review of Systems Comments:: 06/18/17 16:39 GENERAL/CONSTITUTIONAL: No fever or chills. No weakness. HEAD, EYES, EARS, NOSE AND THROAT: No change in vision. No sore throat. CARDIOVASCULAR: No chest pain or shortness of breath RESPIRATORY: No cough, wheezing, or hemoptysis. GASTROINTESTINAL: No nausea, vomiting, diarrhea or constipation. GENITOURINARY: No dysuria, frequency, or change in urination. MUSCULOSKELETAL: No joint or muscle swelling or pain. No neck or back pain. SKIN: No rash NEUROLOGIC: No headache, vertigo, loss of consciousness, or change in strength/ sensation. ALLERGIC/IMMUNOLOGIC: No hives or skin allergy. *Physical Exam - Vital Signs Last Vital Signs Temp Pulse Resp BP Pulse Ox 98 F 65 20 134/46 98 06/18/17 14:28 06/18/17 14:28 06/18/17 14:28 06/18/17 14:28 06/18/17 14:28 - Physical Exam Comments: 06/18/17 16:39 GENERAL: Awake, alert, and fully oriented, in no acute distress, coughing HEAD: No signs of trauma, normocephalic, atraumatic EYES: PERRLA, EOMI, sclera anicteric, conjunctiva clear ENT: Auricles normal inspection, hearing grossly normal, nares patent, oropharynx clear without exudates. Moist mucosa NECK: Normal ROM, supple, no lymphadenopathy, JVD, or masses LUNGS: No distress, speaks full sentences, clear to auscultation bilaterally HEART: Regular rate and rhythm, normal S1 and S2, no murmurs, rubs or gallops, peripheral pulses normal and equal bilaterally. ABDOMEN: Soft, nontender, normoactive bowel sounds. No guarding, no rebound. No masses EXTREMITIES: Normal inspection, Normal range of motion, no edema. No clubbing or cyanosis. NEUROLOGICAL: Cranial nerves II through XII grossly intact. Normal speech, no focal sensorimotor deficits SKIN: Warm, Dry, normal turgor, no rashes or lesions noted. ED Treatment Course - LABORATORY CBC & Chemistry Diagram: 06/18/17 15:10 06/18/17 15:10 - RADIOLOGY Radiology Studies Ordered: Category Date Time Status HEAD CT WITHOUT CONTRAST [CT] Stat CT Scan 06/18/17 15:09 Ordered CHEST X-RAY PORTABLE* [RAD] Stat Radiology 06/18/17 15:08 Taken Medical Decision Making - Medical Decision Making 06/18/17 16:40 Patient is a 86M with history of prostate cancer s/p seeding, CAD s/p CABG, HTN , NPH s/p shunting here today complaining of altered mental status. Vital signs stable and normal. Will initiate septic workup given patient's altered status. DDx includes, but is not limited to: uti, pneumonia, nph. 06/18/17 23:25 Laboratory Tests 04/05/17 06/18/17 06/18/17 22:37 15:10 15:10 WBC 8.4 Hgb 12.7 Hct 39.3 Plt Count 157 D BUN 47 H Creatinine 2.1 H D Ur Leukocyte Esterase 3+ H Urine WBC (Auto) Urine Bacteria 06/18/17 15:13 WBC Hgb Hct Plt Count BUN Creatinine Ur Leukocyte Esterase 3+ H Urine WBC (Auto) Many Urine Bacteria Moderate CBC normal. BUN/Cr elevated from baseline. UA positive for UTI. Will treat with fluids and ceftriaxone. Head CT shows no acute changes to cause altered mental status. Dr Hyman, neurosurgeon, consulted and agrees with conclusion. CXR shows mild pulmonary vascular congestion, no infiltrate. *DC/Admit/Observation/Transfer Diagnosis at time of Disposition: UTI (urinary tract infection), GARRISON (acute kidney injury) - Discharge Dispostion Condition at time of disposition: Stable Admit: Yes - Referrals - Patient Instructions - Post Discharge Activity
[2017-06-18 16:16] LABS: INR 0.96 (0.82-1.09); PROTHROMBIN TIME (PATIENT) 10.8 SEC (9.98-11.88)
[2017-06-18 16:20] LABS: VENOUS PC02 47.7 mmHg (38-52); VENOUS PH 7.32 (7.32-7.42); VENOUS PO2 42.2 mmHg (28-48)
[2017-06-18 16:54] LABS: URINE APPEARANCE CLOUDY; URINE BILIRUBIN NEGATIVE (<2.0 mg/dL); URINE BLOOD NEGATIVE (NEGATIVE); URINE COLOR YELLOW; URINE GLUCOSE (UA) NEGATIVE (NEGATIVE); URINE KETONE NEGATIVE (NEGATIVE); URINE NITRITE NEGATIVE (NEGATIVE); URINE UROBILINOGEN NEGATIVE mg/dL (0.2-1.0)
[2017-06-18 16:58] LABS: URINE LEUK ESTERASE 3+ (NEGATIVE); URINE PROTEIN 2+ (NEGATIVE)
[2017-06-18] MEDS ORDERED: cefTRIAXone 1 GM/50 ML BAG (PRE-DOCKED) IVPB ONE (17:32)
[2017-06-18] MEDS ORDERED: SODIUM CHLORIDE 0.9% 1000 ML INFUS.BAG IV ONE (17:32)
[2017-06-18] MEDS ORDERED: CEFTRIAXONE 1 GM/50 ML BAG ONE (17:37)
[2017-06-18 18:51] LABS: URINE BACTERIA MODERATE /hpf (NONE SEEN)
--- NOTE | 2017-06-18 20:56 | HP ---
CHIEF COMPLAINT: altered mental status PCP: Radha HISTORY OF PRESENT ILLNESS: This is an 86 year old male with a past medical history significant for dementia , UTI, AMS who presented to the ED from [facility] with AMS. Family reports pt gets like this when he has a UTI. Upon exam pt states that her feels terrible but no specific complaints. 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, Dementia, congenital solitary kidney, HLD, depression PAST SURGICAL HISTORY: 3vCABG SKILLS TRAINER shunt 04/13/17 pt adamantly denies any valve repair although documented in the ED chart Social History: Smoking: quit 40y ago Alcohol: pt denies Drugs: pt denies Family History: mother age 89, old age father age 86, old age siblings with no medical problems Allergies No Known Allergies Allergy (Verified 06/18/17 14:27) HOME MEDICATIONS: 3 Medication Instructions Recorded Aspirin [ASA -] 81 mg PO DAILY 04/05/17 Donepezil HCl [Aricept -] 10 mg PO DAILY 04/05/17 Escitalopram Oxalate [Lexapro -] 10 mg PO DAILY 04/05/17 hydrALAZINE HCL [Apresoline -] 10 mg PO BID 04/05/17 Acetaminophen [Tylenol .Regular 650 mg PO Q6H PRN tablet 04/15/17 Strength -] Amino Acids/Protein Hydrolys 30 ml PO BID@0800,1730 packet 04/15/17 [Prosource No Carb Liquid Pkt] Ascorbic Acid [Vitamin C -] 250 mg PO DAILY tablet 04/15/17 Multivitamins [Multivit ([facility] 1 tab PO DAILY tab 04/15/17 Formulary)] Olanzapine [Zyprexa -] 5 mg PO BID tablet 04/15/17 Pantoprazole Sodium [Protonix -] 40 mg PO DAILY tablet.ec 04/15/17 Rosuvastatin [Crestor -] 20 mg PO HS tablet 04/15/17 Tamsulosin HCl [Flomax -] 0.4 mg PO DAILY@0830 cap.er.24h 04/15/17 Clonazepam [Klonopin] 1 mg PO DAILY 06/18/17 Febuxostat [Uloric] 40 mg PO DAILY 06/18/17 Memantine HCl [Namenda -] 5 mg PO BID 06/18/17 Mirabegron [Myrbetriq] 25 mg PO DAILY 06/18/17 Nebivolol HCl [Bystolic] 10 mg PO DAILY 06/18/17 REVIEW OF SYSTEMS CONSTITUTIONAL: Present: generalized weakness, malaise Absent: fever, chills, diaphoresis, loss of appetite, weight change HEENT: Absent: rhinorrhea, nasal congestion, throat pain, throat swelling, difficulty swallowing, mouth swelling, ear pain, eye pain, visual changes CARDIOVASCULAR: Absent: chest pain, syncope, palpitations, irregular heart rate, lightheadedness , peripheral edema RESPIRATORY: Absent: cough, shortness of breath, dyspnea with exertion, orthopnea, wheezing, stridor, hemoptysis GASTROINTESTINAL: Absent: abdominal pain, abdominal distension, nausea, vomiting, diarrhea, constipation, melena, hematochezia GENITOURINARY: Absent: dysuria, frequency, urgency, hesitancy, hematuria, flank pain, genital pain MUSCULOSKELETAL: Absent: myalgia, arthralgia, joint swelling, back pain, neck pain SKIN: Absent: rash, itching, pallor HEMATOLOGIC/IMMUNOLOGIC: Absent: easy bleeding, easy bruising, lymphadenopathy, frequent infections ENDOCRINE: Absent: unexplained weight gain, unexplained weight loss, heat intolerance, cold intolerance NEUROLOGIC: Present: mental status changes Absent: headache, focal weakness or paresthesias, dizziness, unsteady gait, seizure, bladder or bowel incontinence PSYCHIATRIC: Absent: anxiety, depression, suicidal or homicidal ideation, hallucinations. PHYSICAL EXAMINATION Vital Signs - 24 hr 3 06/18/17 06/18/17 14:28 20:41 Temperature 98 F Pulse Rate 65 Pulse Rate [ 55 L Apical] Respiratory 20 20 Rate Blood Pressure 134/46 Blood Pressure 143/64 [Left Arm] O2 Sat by Pulse 98 95 Oximetry (%) GENERAL: Awake, alert, and oriented, able to give month and year, hospital in [place] but not exact name, in no acute distress. weakness noted HEAD: Normal with no signs of trauma. EYES: Pupils equal, round and reactive to light, extraocular movements intact, sclera anicteric, conjunctiva clear. No lid lag. EARS, NOSE, THROAT: Ears normal, nares patent, oropharynx clear without exudates. dry mucous membranes. NECK: Normal range of motion, supple without lymphadenopathy, JVD, or masses. LUNGS: Breath sounds equal, clear to auscultation bilaterally. No wheezes, and no crackles. No accessory muscle use. HEART: Regular rate and rhythm, normal S1 and S2 without murmur, rub or gallop. ABDOMEN: Soft, nontender, not distended, normoactive bowel sounds, no guarding, no rebound, no masses. No hepatomegaly or splenomegaly. MUSCULOSKELETAL: Normal range of motion at all joints. No bony deformities or tenderness. No CVA tenderness. UPPER EXTREMITIES: 2+ pulses, warm, well-perfused. No cyanosis. No clubbing. No peripheral edema. LOWER EXTREMITIES: 2+ pulses, warm, well-perfused. No calf tenderness. No peripheral edema. NEUROLOGICAL: Cranial nerves II-XII intact. Normal speech. Gait not observed. PSYCHIATRIC: Cooperative. Good eye contact. Appropriate mood and affect. SKIN: Warm, dry, normal turgor, no rashes or lesions noted, normal capillary refill. Laboratory Results - last 24 hr 3 06/18/17 06/18/17 06/18/17 15:10 15:10 15:10 WBC 8.4 RBC 5.02 Hgb 12.7 Hct 39.3 MCV 78.4 L MCH 25.3 L MCHC 32.2 RDW 14.9 Plt Count 157 D MPV 10.4 Neutrophils % 61.2 D Lymphocytes % 24.5 D Monocytes % 9.5 D Eosinophils % 4.0 D Basophils % 0.8 D PT with INR 10.80 INR 0.96 VBG pH 7.32 POC VBG pCO2 47.7 POC VBG pO2 42.2 Mixed VBG HCO3 23.9 Sodium Potassium Chloride Carbon Dioxide Anion Gap BUN Creatinine Creat Clearance w eGFR Random Glucose Lactic Acid Calcium Total Bilirubin AST ALT Alkaline Phosphatase Troponin I Total Protein Albumin Urine Color Urine Appearance Urine pH Ur Specific [place] Urine Protein Urine Glucose (UA) Urine Ketones Urine Blood Urine Nitrite Urine Bilirubin Urine Urobilinogen Ur Leukocyte Esterase Urine WBC (Auto) Urine RBC (Auto) Urine Bacteria 3 06/18/17 06/18/17 06/18/17 15:10 15:10 15:10 WBC RBC Hgb Hct MCV MCH MCHC RDW Plt Count MPV Neutrophils % Lymphocytes % Monocytes % Eosinophils % Basophils % PT with INR INR VBG pH POC VBG pCO2 POC VBG pO2 Mixed VBG HCO3 Sodium 143 Potassium 5.2 H Chloride 106 Carbon Dioxide 29 Anion Gap 8 BUN 47 H Creatinine 2.1 H D Creat Clearance w eGFR 30.24 Random Glucose 130 H D Lactic Acid 1.2 Calcium 8.6 Total Bilirubin 0.3 D AST 21 ALT 25 D Alkaline Phosphatase 94 D Troponin I 0.06 H D Total Protein 6.7 Albumin 3.7 D Urine Color Urine Appearance Urine pH Ur Specific [place] Urine Protein Urine Glucose (UA) Urine Ketones Urine Blood Urine Nitrite Urine Bilirubin Urine Urobilinogen Ur Leukocyte Esterase Urine WBC (Auto) Urine RBC (Auto) Urine Bacteria 3 Urine Color Yellow 06/18/17 15:13 Urine Appearance Cloudy 06/18/17 15:13 Urine pH 5.0 (5.0-8.0) 06/18/17 15:13 Ur Specific [place] 1.013 (1.001-1.035) 06/18/17 15:13 Urine Protein 2+ (NEGATIVE) H 06/18/17 15:13 Urine Glucose (UA) Negative (NEGATIVE) 06/18/17 15:13 Urine Ketones Negative (NEGATIVE) 06/18/17 15:13 Urine Blood Negative (NEGATIVE) 06/18/17 15:13 Urine Nitrite Negative (NEGATIVE) 06/18/17 15:13 Urine Bilirubin Negative (<2.0 mg/dL) 06/18/17 15:13 Ur Leukocyte Esterase 3+ (NEGATIVE) H 06/18/17 15:13 Urine WBC (Auto) Many Urine RBC (Auto) 0-3 Urine Bacteria Moderate /hpf (NONE SEEN) 06/18/17 15:[address] head noncontrast IMPRESSION: Right posterior parietal ventriculoperitoneal shunt catheter in place as on the previous CT exam of 04/13/2017. Moderate ventricular dilatation is noted which appears slightly diminished. Interval resolution of a small amount of intraventricular blood is seen. A small amount of air is visualized within the lateral ventricles. The amount of intracranial air appears diminished since the previous exam. Reported By: John Bunch MD 06/18/17 9286 CXR portable Impression: Bibasilar subsegmental atelectasis and/or scarring. Mild pulmonary vascular congestion. Unchanged chronic small right pleural effusion versus pleural thickening along the right lower lung Reported By: Kathy Freed DO 06/18/17 1650 ECG ASSESSMENT/PLAN: 86yM with PMH prostate CA s/p seed implant, CAD s/p CABG, HTN, NPH s/p shunt placement, Dementia, congenital solitary kidney, HLD, depression presented to the ED from [facility] for altered mental status. AMS - CT head with improvement from previous - ? metabolic encephalopathy r/t UTI - cont supportive care UTI - cont ceftriaxone 1g daily - follow culture elevated BUN/Cr - slight bump in baseline cr from 1.6 to 2.1 - pt appears dry on exam - gentle IV hydration HTN/CAD - cont home meds: ASA, hydralazine, crestor, bystolic dementia - cont supportive care - cont namenda, aricept, zyprexa depression - cont lexapro, - would recommend taper klonopin as can worsen mental status, especially in dementia patients DVT PPX - defer presently, reassess if LOS >48h FEN - NS @ 75cc/hr - bmp in am - low sodium diet Dispo: pt currently requires further observation for management of his emergent condition. Visit type - Emergency Visit Emergency Visit: Yes ED Registration Date: 06/18/17 Care time: The patient presented to the Emergency Department on the above date and was hospitalized for further evaluation of their emergent condition. - New Patient This patient is new to me today: Yes Date on this admission: 06/18/17 - Critical Care Critical Care patient: No Hospitalist Screening - Colonoscopy Questionnaire Colonoscopy Questionnaire: Colonoscopy Questionnaire - Patient: 50 - 75 years old and never had a screening colonoscopy: No History of colon or rectal polyps, or CA: No History of IBD, Crohn's disease or UC: No History of abdominal radiation therapy as a child: No - Relative: 1 with colon or rectal CA, or polyps at age 60 or younger: No Colon or rectal CA diagnosed at age 45 or younger: No Multiple relatives with colon or rectal CA: No - Outcome: Screening Result: Negative Screen
[2017-06-18] MEDS: OLANZapine 5 MG TABLET PO SCH (22:58)
[2017-06-18] MEDS: ROSUVASTATIN CA 20 MG TABLET (FP) PO SCH (22:58)
[2017-06-18] MEDS: MEMANTINE HCL 5 MG TABLET (UD) PO SCH (22:58)
[2017-06-18] MEDS: hydrALAZINE HCL 10 MG TABLET PO SCH (22:59)
[2017-06-19 00:13] VITALS: BMI 28.3
[2017-06-19] MEDS: SODIUM CHLORIDE 1,000 ML IV SCH ×2 (03:14→17:09)
[2017-06-19 07:57] LABS: BASO % 0.8 % (0-2.0); EOS % 4.3 % (0-4.5); HEMATOCRIT 35.5 % (35.4-49); HEMOGLOBIN 11.2 GM/dL (11.7-16.9); LYMPH % 27.1 % (8-40); MCHC 31.6 g/dl (32.0-35.9); MEAN PLT VOLUME 9.8 fl (7.5-11.1); MONO % 10.2 % (3.8-10.2); NEUT % 57.6 % (42.8-82.8); PLATELET COUNT 142 K/MM3 (134-434); RBC 4.49 M/mm3 (4.00-5.60); RDW 14.7 % (11.9-15.9)
[2017-06-19] MEDS: TAMSULOSIN HCL 0.4 MG CAP.ER.24H (FP) PO SCH (08:01)
[2017-06-19] MEDS: AMINO ACIDS/PROTEIN HYDROLYS 30 ML LIQUID.PKT PO SCH ×2 (08:01→17:09)
[2017-06-19 08:16] LABS: ANION GAP 4 (8-16); BLOOD UREA NITROGEN 39 mg/dL (7-18); CALCIUM 8.2 mg/dL (8.5-10.1); CHLORIDE 111 mmol/L (98-107); CO2 28 mmol/L (21-32); CREATININE 1.9 mg/dL (0.7-1.3); GLUCOSE,RANDOM 87 mg/dL (74-106); PHOSPHOROUS 4.3 mg/dL (2.5-4.9); POTASSIUM 4.9 mmol/L (3.5-5.1); SODIUM 143 mmol/L (136-145)
[2017-06-19] MEDS ORDERED: cefTRIAXone SODIUM 1 GM VIAL ONE (08:44)
[2017-06-19] MEDS ORDERED: DEXTROSE 5%-WATER - 50 ML IVPB ONE (08:44)
[2017-06-19] MEDS: CEFTRIAXONE 1 GM in DEXTROSE 5%-WATER - 50 ML IVPB SCH (09:04)
[2017-06-19] MEDS: MULTIVITAMINS (DAILY MVI) TABLET (FP) PO SCH (09:06)
[2017-06-19] MEDS: PANTOPRAZOLE 40 MG TABLET (FP) PO SCH (09:06)
[2017-06-19] MEDS: ASPIRIN 81 MG CHEWABLE TABLETS PO SCH (09:06)
[2017-06-19] MEDS: clonazePAM 0.5 MG TABLET PO SCH (09:06)
[2017-06-19] MEDS: OLANZapine 5 MG TABLET PO SCH ×2 (09:06→21:22)
[2017-06-19] MEDS: MEMANTINE HCL 5 MG TABLET (UD) PO SCH ×2 (09:07→21:22)
[2017-06-19] MEDS: DONEPEZIL HCL 10 MG TABLET (FP) PO SCH (09:07)
[2017-06-19] MEDS: ESCITALOPRAM OXALATE 10 MG TABLET (FP) PO SCH (09:07)
[2017-06-19] MEDS: ASCORBIC ACID 250 MG TABLET (FP) PO SCH (10:40)
[2017-06-19] MEDS: hydrALAZINE HCL 10 MG TABLET PO SCH ×2 (10:40→21:22)
[2017-06-19] MEDS: FEBUXOSTAT 40 MG TAB PO SCH (10:40)
--- NOTE | 2017-06-19 11:07 | HP ---
Admitting History and Physical - Admission Chief Complaint: admitted for weakness, History of Present Illness: The patient is a 86-year-old male with a significant past medical history of dementia, hydrocephalus s/p RECRUITING AND SELECTION CONSULTANT shunt placement, prostate CA s/p seeding, unknown heart surgery, kidney disease, and HTN, who presents to the emergency department from [place] for altered mental status. Dr. Roca, who operated on the patient, was concerned and sent the patient to the ER for a CT. The family states that the patient has been confused, irritable, and asking irrelevant questions over the last 24 hours. The family states that the patient has a history of UTIs, and notes that he typically presents with this type of confusion when he has a UTI. Family also states that the patient has been coughing for 3 weeks. The patient denies any complaints of pain. He denies chest pain, shortness of breath, headache and dizziness. The patient denies fever, chills, nausea, vomit , diarrhea and constipation. The patient denies dysuria, frequency, urgency and hematuria. 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: Dementia Cardiovascular: Yes: HTN, Hyperlipdemia Renal/: Yes: Renal Inusuff Rheumatology: Yes: Gout - Smoking History Smoking history: Unknown if ever smoked Have you smoked in the past 12 months: No If you are a former smoker, when did you quit?: 1966 - Alcohol/Substance Use Hx Alcohol Use: No Home Medications - Allergies Allergies/Adverse Reactions: Allergies Allergy/AdvReac Type Severity Reaction Status Date / Time No Known Allergies Allergy Verified 06/18/17 14:27 - Home Medications Home Medications: Ambulatory Orders Aspirin [ASA -] 81 mg PO DAILY 04/05/17 Donepezil HCl [Aricept -] 10 mg PO DAILY 04/05/17 Escitalopram Oxalate [Lexapro -] 10 mg PO DAILY 04/05/17 hydrALAZINE HCL [Apresoline -] 10 mg PO BID 04/05/17 Acetaminophen [Tylenol .Regular Strength -] 650 mg PO Q6H PRN tablet 04/15/17 Amino Acids/Protein Hydrolys [Prosource No Carb Liquid Pkt] 30 ml PO BID@0800, 1730 packet 04/15/17 Ascorbic Acid [Vitamin C -] 250 mg PO DAILY tablet 04/15/17 Multivitamins [Multivit ([facility] Formulary)] 1 tab PO DAILY tab 04/15/17 Olanzapine [Zyprexa -] 5 mg PO BID tablet 04/15/17 Pantoprazole Sodium [Protonix -] 40 mg PO DAILY tablet.ec 04/15/17 Rosuvastatin [Crestor -] 20 mg PO HS tablet 04/15/17 Tamsulosin HCl [Flomax -] 0.4 mg PO DAILY@0830 cap.er.24h 04/15/17 Clonazepam [Klonopin] 1 mg PO DAILY 06/18/17 Febuxostat [Uloric] 40 mg PO DAILY 06/18/17 Memantine HCl [Namenda -] 5 mg PO BID 06/18/17 Mirabegron [Myrbetriq] 25 mg PO DAILY 06/18/17 Nebivolol HCl [Bystolic] 10 mg PO DAILY 06/18/17 Review of Systems - Review of Systems Constitutional: reports: Weakness Physical Examination Vital Signs: Vital Signs Temperature 98 F 06/19/17 10:07 Pulse Rate 54 L 06/19/17 10:07 Respiratory Rate 20 06/19/17 10:07 Blood Pressure 172/63 06/19/17 10:07 O2 Sat by Pulse Oximetry (%) 99 06/19/17 03:45 Constitutional: Yes: Calm Neck: Yes: Trachea Midline Cardiovascular: Yes: Regular Rate and Rhythm, S1, S2 Respiratory: Yes: CTA Bilaterally, Diminished (at the bases) Gastrointestinal: Yes: Normal Bowel Sounds, Soft Edema: Yes Neurological: Yes: Alert, Oriented (to name) Labs: CBC, BMP 06/19/17 06:35 06/19/17 06:35 Imaging - Results Chest X-ray: Report Reviewed (subsegmental atelectasis) Problem List - Problems (1) Bradycardia Assessment/Plan: hold all AV ace blocking agents cardiology consult Code(s): R00.1 - BRADYCARDIA, UNSPECIFIED (2) UTI (urinary tract infection) Assessment/Plan: awaiting final culture on iv rocephin Code(s): N39.0 - URINARY TRACT INFECTION, SITE NOT SPECIFIED (3) Altered mental status Assessment/Plan: toxic metabolic encephalopathy uti- iv rocephin neurology evaluation on dementia meds Code(s): R41.82 - ALTERED MENTAL STATUS, UNSPECIFIED (4) CKD (chronic kidney disease) Assessment/Plan: renal evaluation Code(s): N18.9 - CHRONIC KIDNEY DISEASE, UNSPECIFIED (5) Hypertension Assessment/Plan: hydralazine stop av ace blocking agents Code(s): I10 - ESSENTIAL (PRIMARY) HYPERTENSION Qualifiers: Hypertension type: essential hypertension Qualified Code(s): I10 - Essential (primary) hypertension (6) NPH (normal pressure hydrocephalus) Assessment/Plan: s/p shunt placement Code(s): G91.2 - (IDIOPATHIC) NORMAL PRESSURE HYDROCEPHALUS
[2017-06-19] MEDS: PATIENT'S OWN MEDICATION (NON-FORMULARY) (Mirabegron [Myrbetriq] 25 MG) PO SCH (13:30)
--- NOTE | 2017-06-19 14:39 | CONSULT ---
Consult Consult Specialty:: Nephrology Reason for Consultation:: CKD - History of Present Illness Chief Complaint: altered mental status History of Present Illness: Pt is an 86 year old male with pmhx of CKD, hydrocephalus, V/P shunt, prostate cancer, and HTN who was sent in for altered mental status. He had been confused for about a day. I was called to evaluate him as he was found to have elevated creatinine and was hyperkalemic. He has not been eating much food. He does have a cough. He has history of recurrent UTI. His mental status is a little better today. His is at bedside and care was discussed with her. 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: Dementia Cardio/Vascular: Yes: HTN, Hyperlipdemia Renal/: Yes: Renal Inusuff Rheumatology: Yes: Gout - Alcohol/Substance Use Hx Alcohol Use: No - Smoking History Smoking history: Unknown if ever smoked Have you smoked in the past 12 months: No If you are a former smoker, when did you quit?: 1967 - Social History Usual Living Arrangement: With Spouse Home Medications - Allergies Allergies/Adverse Reactions: Allergies Allergy/AdvReac Type Severity Reaction Status Date / Time No Known Allergies Allergy Verified 06/18/17 14:27 - Home Medications Home Medications: Ambulatory Orders Aspirin [ASA -] 81 mg PO DAILY 04/05/17 Donepezil HCl [Aricept -] 10 mg PO DAILY 04/05/17 Escitalopram Oxalate [Lexapro -] 10 mg PO DAILY 04/05/17 hydrALAZINE HCL [Apresoline -] 10 mg PO BID 04/05/17 Acetaminophen [Tylenol .Regular Strength -] 650 mg PO Q6H PRN tablet 04/15/17 Amino Acids/Protein Hydrolys [Prosource No Carb Liquid Pkt] 30 ml PO BID@0800, 1730 packet 04/15/17 Ascorbic Acid [Vitamin C -] 250 mg PO DAILY tablet 04/15/17 Multivitamins [Multivit ([facility] Formulary)] 1 tab PO DAILY tab 04/15/17 Olanzapine [Zyprexa -] 5 mg PO BID tablet 04/15/17 Pantoprazole Sodium [Protonix -] 40 mg PO DAILY tablet.ec 04/15/17 Rosuvastatin [Crestor -] 20 mg PO HS tablet 04/15/17 Tamsulosin HCl [Flomax -] 0.4 mg PO DAILY@0830 cap.er.24h 04/15/17 Clonazepam [Klonopin] 1 mg PO DAILY 06/18/17 Febuxostat [Uloric] 40 mg PO DAILY 06/18/17 Memantine HCl [Namenda -] 5 mg PO BID 06/18/17 Mirabegron [Myrbetriq] 25 mg PO DAILY 06/18/17 Nebivolol HCl [Bystolic] 10 mg PO DAILY 06/18/17 Family Disease History - Family Disease History Family History: Denies Review of Systems Unable to obtain ROS, reason: mental status change Findings/Remarks: Pts mental status is starting to improve. He is not able to give full history by answer some questions. - Review of Systems Constitutional: reports: Loss of Appetite. denies: Chills, Fever Eyes: reports: No Symptoms HENT: reports: No Symptoms Cardiovascular: reports: No Symptoms Respiratory: reports: Cough Gastrointestinal: reports: No Symptoms Genitourinary: reports: No Symptoms Musculoskeletal: reports: Muscle Weakness Neurological: reports: Change in LOC, Confusion Endocrine: reports: No Symptoms Psychiatric: reports: No Symptoms Physical Exam Vital Signs: Vital Signs Temperature 98 F 06/19/17 10:07 Pulse Rate 54 L 06/19/17 10:07 Respiratory Rate 20 06/19/17 10:07 Blood Pressure 172/63 06/19/17 10:07 O2 Sat by Pulse Oximetry (%) 99 06/19/17 03:45 Constitutional: Yes: Calm Eyes: Yes: Conjunctiva Clear HENT: Yes: Atraumatic Neck: Yes: Supple Cardiovascular: Yes: S1, S2 Respiratory: Yes: CTA Bilaterally Gastrointestinal: Yes: Soft Renal/: Yes: WNL Musculoskeletal: Yes: Muscle Weakness Edema: No Neurological: Yes: Confusion Psychiatric: Yes: Oriented Labs: CBC, BMP 06/19/17 06:35 06/19/17 06:35 Laboratory Tests 04/14/17 06/18/17 06/18/17 13:30 15:10 15:10 Hgb 12.7 Sodium 143 Potassium 5.2 H BUN 47 H Creatinine 1.7 H 2.1 H D Urine Protein 06/18/17 06/19/17 06/19/17 15:13 06:35 06:35 Hgb 11.2 L D Sodium Potassium 4.9 BUN 39 H Creatinine 1.9 H Urine Protein 2+ H Imaging - Results Chest X-ray: Report Reviewed Problem List - Problems (1) GARRISON (acute kidney injury) Code(s): N17.9 - ACUTE KIDNEY FAILURE, UNSPECIFIED (2) CKD (chronic kidney disease) Code(s): N18.9 - CHRONIC KIDNEY DISEASE, UNSPECIFIED Assessment/Plan Current Medications Generic Name Dose Route Start Last Admin Trade Name Freq PRN Reason Stop Dose Admin Albuterol Sulfate 1 amp 06/19/17 16:11 06/19/17 16:52 Ventolin 0.083% Nebulizer Soln - NEB 1 amp Q6H PRN Administration SHORT OF BREATH/WHEEZING Amino Acids 30 ml 06/19/17 08:00 06/19/17 17:09 Prosource No Carb Liquid Pkt PO 30 ml BID@0800,1730 MITCH Administration Ascorbic Acid 250 mg 06/19/17 10:00 06/19/17 10:40 Vitamin C - PO 250 mg DAILY MITCH Administration Aspirin 81 mg 06/19/17 10:00 06/19/17 09:06 Asa - PO 81 mg DAILY MITCH Administration Clonazepam 1 mg 06/19/17 10:00 06/19/17 09:06 Klonopin - PO 1 mg DAILY MITCH Administration Donepezil HCl 10 mg 06/19/17 10:00 06/19/17 09:07 Aricept - PO 10 mg DAILY MITCH Administration Escitalopram Oxalate 10 mg 06/19/17 10:00 06/19/17 09:07 Lexapro - PO 10 mg DAILY MITCH Administration Febuxostat 40 mg 06/19/17 10:00 06/19/17 10:40 Uloric - PO 40 mg DAILY MITCH Administration Hydralazine HCl 10 mg 06/18/17 22:00 06/19/17 10:40 Apresoline - PO 10 mg BID MITCH Administration Ceftriaxone Sodium 1 gm/ 50 mls @ 100 mls/hr 06/19/17 10:00 06/19/17 09:04 Dextrose IVPB 100 mls/hr DAILY MITCH Administration Sodium Chloride 1,000 mls @ 75 mls/hr 06/18/17 23:45 06/19/17 17:09 Normal Saline - IV 75 mls/hr ASDIR MITCH Administration Memantine 5 mg 06/18/17 22:00 06/19/17 09:07 Namenda - PO 5 mg BID MITCH Administration Multivitamins/Minerals/Vitamin C 1 tab 06/19/17 10:00 06/19/17 09:06 Tab-A-Vit - PO 1 tab DAILY MITCH Administration Nebivolol 10 mg 06/19/17 10:00 Bystolic - PO DAILY MITCH Non-Formulary Medication 25 mg 06/19/17 10:00 06/19/17 13:30 Mirabegron [Myrbetriq] PO 25 mg DAILY MITCH Administration Olanzapine 5 mg 06/18/17 22:00 06/19/17 09:06 Zyprexa - PO 5 mg BID MITCH Administration Pantoprazole Sodium 40 mg 06/19/17 10:00 06/19/17 09:06 Protonix - PO 40 mg DAILY MITCH Administration Rosuvastatin Calcium 20 mg 06/18/17 22:00 06/18/17 22:58 Crestor - PO 20 mg HS MITCH Administration Tamsulosin HCl 0.4 mg 06/19/17 08:30 06/19/17 08:01 Flomax - PO 0.4 mg DAILY@0830 MITCH Administration Impression 1. CKD 2. PKD 3. change in mental status 4. HTN 5. weakness 6. s/p fall 7. prostate cancer 8. dementia 9. hyperlipidemia 10. hyperkalemia 11. GARRISON Plan - decrease rate of fluids - renal function is improving - follow urine and blood cultures - cont abx for now - stop fluids once he is eating - discussed with family - likely etiology of elevated creatinine is secondary to prerenal disease - will follow Dr Parra
--- NOTE | 2017-06-19 15:16 | CON.CARD ---
Consult Consult Specialty:: Cardiology Referred by:: Temi Peoples Reason for Consultation:: HTN. Abnormal ekg - History of Present Illness Chief Complaint: AMS History of Present Illness: 86 year old male with a pmhx of dementia, hydrocephalus s/p [employer]ICER shunt, prostate CA s/p seeding, H/o open heart surgery over 10 years ago, ckd, and htn presents from [place] with AMS. As per family, patient has been confused and agitated for last few days. No chest pain, sob, or palpitations. +cough, No pnd, orthopnea , and trace LE edema. 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 Cardio/Vascular: Yes: HTN, Hyperlipdemia Renal/: Yes: Renal Inusuff Rheumatology: Yes: Gout - Alcohol/Substance Use Hx Alcohol Use: No - Smoking History Smoking history: Unknown if ever smoked Have you smoked in the past 12 months: No If you are a former smoker, when did you quit?: 1966 - Social History Usual Living Arrangement: With Spouse Home Medications - Allergies Allergies/Adverse Reactions: Allergies Allergy/AdvReac Type Severity Reaction Status Date / Time No Known Allergies Allergy Verified 06/18/17 14:27 - Home Medications Home Medications: Ambulatory Orders Aspirin [ASA -] 81 mg PO DAILY 04/05/17 Donepezil HCl [Aricept -] 10 mg PO DAILY 04/05/17 Escitalopram Oxalate [Lexapro -] 10 mg PO DAILY 04/05/17 hydrALAZINE HCL [Apresoline -] 10 mg PO BID 04/05/17 Acetaminophen [Tylenol .Regular Strength -] 650 mg PO Q6H PRN tablet 04/15/17 Amino Acids/Protein Hydrolys [Prosource No Carb Liquid Pkt] 30 ml PO BID@0800, 1730 packet 04/15/17 Ascorbic Acid [Vitamin C -] 250 mg PO DAILY tablet 04/15/17 Multivitamins [Multivit ([facility] Formulary)] 1 tab PO DAILY tab 04/15/17 Olanzapine [Zyprexa -] 5 mg PO BID tablet 04/15/17 Pantoprazole Sodium [Protonix -] 40 mg PO DAILY tablet.ec 04/15/17 Rosuvastatin [Crestor -] 20 mg PO HS tablet 04/15/17 Tamsulosin HCl [Flomax -] 0.4 mg PO DAILY@0830 cap.er.24h 04/15/17 Clonazepam [Klonopin] 1 mg PO DAILY 06/18/17 Febuxostat [Uloric] 40 mg PO DAILY 06/18/17 Memantine HCl [Namenda -] 5 mg PO BID 06/18/17 Mirabegron [Myrbetriq] 25 mg PO DAILY 06/18/17 Nebivolol HCl [Bystolic] 10 mg PO DAILY 06/18/17 Vital Signs: Vital Signs Temperature 98.7 F 06/19/17 14:01 Pulse Rate 57 L 06/19/17 14:01 Respiratory Rate 18 06/19/17 14:01 Blood Pressure 127/58 06/19/17 14:01 O2 Sat by Pulse Oximetry (%) 99 06/19/17 03:45 Constitutional: Yes: No Distress Neck: Yes: Supple Respiratory: Yes: CTA Bilaterally Gastrointestinal: Yes: Soft Cardiovascular: Yes: Regular Rate and Rhythm, Bradycardia JVD: No Carotid Bruit: No Heart Sounds: Yes: S2 Edema: LLE: Trace, RLE: Trace - Other Data Labs, Other Data: CBC, BMP 06/19/17 06:35 06/19/17 06:35 INR, PTT INR 0.96 (0.82-1.09) 06/18/17 15:10 Troponin, BNP 06/18/17 06/18/17 06/19/17 15:10 22:00 06:35 Troponin I 0.06 H D 0.04 D 0.04 06/19/17 06:35 Troponin I Cancelled Troponin, BNP 06/18/17 06/18/17 06/19/17 15:10 22:00 06:35 Troponin I 0.06 H D 0.04 D 0.04 06/19/17 06:35 Troponin I Cancelled Imaging - Results Chest X-ray: Report Reviewed EKG: Image Reviewed Problem List - Problems (1) Bradycardia Code(s): R00.1 - BRADYCARDIA, UNSPECIFIED Assessment/Plan The patient is a 86-year-old male with a significant past medical history of dementia, hydrocephalus s/p [employer]ICER shunt placement, prostate CA s/p seeding, unknown heart surgery, kidney disease, and HTN, who presents to the emergency department from [place] for altered mental status. Found to have UTI on UA CXF: minimal congestion 1)HTN/history of heart surgery -EKG with sinus bradycardia at 55bpm, RBBB, inferior infarct pattern, no acute st changes. Normal LVEF on echo in 2017 -No acute cardiac pathology appreciated. If patient was on nebivolol with HR in 50s this is fine for a patient with heart disease as we prefer HR's 50-60s Has room to increase hydralazine if needed Further work up for AMS as per primary team. Abx for UTI as per primary team. No further cardiac testing at this time. Please call back if needed
[2017-06-19] MEDS: ALBUTEROL SO4 0.083% IH SOL 2.5 MG/3 ML VIAL.NEB. NEB PRN (16:52)
--- NOTE | 2017-06-19 17:04 | EKG ---
Test Reason : Blood Pressure : / mmHG Vent. 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
--- NOTE | 2017-06-19 20:56 | CON.NEURO ---
Consult Consult Specialty:: NEUROLOGY-ANTONY JUAREZ Reason for Consultation:: Gait Disorder - History of Present Illness History of Present Illness: This is an 86 year old male with a past medical history significant for dementia , UTI, AMS who presented to the ED from [facility] with AMS. Family reports pt gets like this when he has a UTI. Upon exam pt states that her feels terrible but no specific complaints. He is being treated for UTI, presented with mild encephalopathy. Since v/p shunt placement his ventricular size has improved so has his cognition but he remains with persistent gait d/o. He reports he feels better since the shunt was placed but "my walking has improved only 10%. Sates is able to stand with assistance but cannot take steps. denies difficulty turning in bed/tremors and oher symptoms of bradykinesia. 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 Cardio/Vascular: Yes: HTN, Hyperlipdemia Renal/: Yes: Renal Inusuff Rheumatology: Yes: Gout - Alcohol/Substance Use Hx Alcohol Use: No - Smoking History Smoking history: Unknown if ever smoked Have you smoked in the past 12 months: No If you are a former smoker, when did you quit?: 1967 - Social History Usual Living Arrangement: With Spouse Home Medications - Allergies Allergies/Adverse Reactions: Allergies Allergy/AdvReac Type Severity Reaction Status Date / Time No Known Allergies Allergy Verified 06/18/17 14:27 - Home Medications Home Medications: Ambulatory Orders Aspirin [ASA -] 81 mg PO DAILY 04/05/17 Donepezil HCl [Aricept -] 10 mg PO DAILY 04/05/17 Escitalopram Oxalate [Lexapro -] 10 mg PO DAILY 04/05/17 hydrALAZINE HCL [Apresoline -] 10 mg PO BID 04/05/17 Acetaminophen [Tylenol .Regular Strength -] 650 mg PO Q6H PRN tablet 04/15/17 Amino Acids/Protein Hydrolys [Prosource No Carb Liquid Pkt] 30 ml PO BID@0800, 1730 packet 04/15/17 Ascorbic Acid [Vitamin C -] 250 mg PO DAILY tablet 04/15/17 Multivitamins [Multivit ([facility] Formulary)] 1 tab PO DAILY tab 04/15/17 Olanzapine [Zyprexa -] 5 mg PO BID tablet 04/15/17 Pantoprazole Sodium [Protonix -] 40 mg PO DAILY tablet.ec 04/15/17 Rosuvastatin [Crestor -] 20 mg PO HS tablet 04/15/17 Tamsulosin HCl [Flomax -] 0.4 mg PO DAILY@0830 cap.er.24h 04/15/17 Clonazepam [Klonopin] 1 mg PO DAILY 06/18/17 Febuxostat [Uloric] 40 mg PO DAILY 06/18/17 Memantine HCl [Namenda -] 5 mg PO BID 06/18/17 Mirabegron [Myrbetriq] 25 mg PO DAILY 06/18/17 Nebivolol HCl [Bystolic] 10 mg PO DAILY 06/18/17 Physical Exam-Neuro Vital Signs: Vital Signs Temperature 98.6 F 06/19/17 18:00 Pulse Rate 59 L 06/19/17 18:00 Respiratory Rate 20 06/19/17 19:00 Blood Pressure 144/56 06/19/17 18:00 O2 Sat by Pulse Oximetry (%) 94 L 06/19/17 19:00 Labs: CBC, BMP 06/19/17 06:35 06/19/17 06:35 INR, PTT INR 0.96 (0.82-1.09) 06/18/17 15:10 - Neuro Exam Level Of Consciousness: Yes: Alert, Oriented to Person, Oriented to Place Eyes: Yes: PERRL Speech: WNL Dominant Hand: Right (Impaired digit span/serial 7s and could recall 1/3 objects in 1 and 5 mns. Impaired sequencing) Mini Mental Exam: Impaired digit span/serial 7s and could recall 1/3 objects in 1 and 5 mns. Impaired sequencing Cranial Nerves II-XII Intact: Yes Gag: Present DTR's: 0 Left Achilles, 0 Right Achilles, 1+ Left Bicep, 1+ Right Bicep, 1+ Left Tricep, 1+ Right Tricep, 1+ Left Brachioradialis, 1+ Right Brachioradialis Babinski: Present (left side) Response to pain prick: Normal Response to temperature: Normal Coordination: Normal: Finger to Nose (normal F-N) Motor Strength: 5/5: Left Arm, Right Arm, Left Leg, Right Leg (Tone is increased in both legs left more than right. No cog wheel rigidity noted) Gait: Other (Able to stand with assistance but cannot take steps, magnetic gait) Imaging - Results Cat Scan: Report Reviewed (Mod. vent. dilatation, improved from previous, v/p shunt, small amount of intravent hge.) Assessment/Plan Persistent gait abn. after v/p shunt placement. The gait d/o ususlly improves after shunting in NPH but Mr Timmons's gait has improved minimally. There are no signs of PD. At this time his gait may be worse due to UTI. Does not appear to have myelopathic signs, ?? 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 -Upion recovery from UTI as outpt. it may not be a bad idea to consult Dr. Clark to see if the pressure in v/p shunt can be lowered somewhat to see if there is gait improvement. Thank you, Alfonso Yap MD
[2017-06-19] MEDS: ROSUVASTATIN CA 20 MG TABLET (FP) PO SCH (21:22)
[2017-06-20] MEDS: SODIUM CHLORIDE 1,000 ML IV SCH (04:03)
[2017-06-20] MEDS: AMINO ACIDS/PROTEIN HYDROLYS 30 ML LIQUID.PKT PO SCH ×2 (08:28→17:28)
[2017-06-20] MEDS: TAMSULOSIN HCL 0.4 MG CAP.ER.24H (FP) PO SCH (08:28)
[2017-06-20] MEDS ORDERED: DEXTROSE 5%-WATER - 50 ML IVPB ONE (08:55)
[2017-06-20] MEDS ORDERED: cefTRIAXone SODIUM 1 GM VIAL ONE (08:55)
[2017-06-20] MEDS: ASPIRIN 81 MG CHEWABLE TABLETS PO SCH (09:00)
[2017-06-20] MEDS: ESCITALOPRAM OXALATE 10 MG TABLET (FP) PO SCH (09:00)
[2017-06-20] MEDS: PANTOPRAZOLE 40 MG TABLET (FP) PO SCH (09:00)
[2017-06-20] MEDS: clonazePAM 0.5 MG TABLET PO SCH (09:00)
[2017-06-20] MEDS: hydrALAZINE HCL 10 MG TABLET PO SCH ×2 (09:00→21:50)
[2017-06-20] MEDS: MEMANTINE HCL 5 MG TABLET (UD) PO SCH ×2 (09:01→21:50)
[2017-06-20] MEDS: OLANZapine 5 MG TABLET PO SCH ×2 (09:01→21:50)
[2017-06-20] MEDS: MULTIVITAMINS (DAILY MVI) TABLET (FP) PO SCH (09:01)
[2017-06-20] MEDS: DONEPEZIL HCL 10 MG TABLET (FP) PO SCH (09:02)
[2017-06-20] MEDS: FEBUXOSTAT 40 MG TAB PO SCH (09:02)
[2017-06-20] MEDS: CEFTRIAXONE 1 GM in DEXTROSE 5%-WATER - 50 ML IVPB SCH (09:03)
[2017-06-20] MEDS: ASCORBIC ACID 250 MG TABLET (FP) PO SCH (09:04)
[2017-06-20] MEDS: PATIENT'S OWN MEDICATION (NON-FORMULARY) (Mirabegron [Myrbetriq] 25 MG) PO SCH (09:05)
--- NOTE | 2017-06-20 10:29 | PN ---
Progress Note, Physician Chief Complaint: AWAKE MORE ALERT TODAY EATING CHOPPED DIET WITH THIN LIQUIDS - Current Medication List Current Medications: Active Medications Albuterol Sulfate (Ventolin 0.083% Nebulizer Soln -) 1 amp NEB Q6H PRN PRN Reason: SHORT OF BREATH/WHEEZING Last Admin: 06/19/17 16:52 Dose: 1 amp Amino Acids (Prosource No Carb Liquid Pkt) 30 ml PO BID@0800,1730 [facility] Last Admin: 06/20/17 08:28 Dose: 30 ml Ascorbic Acid (Vitamin C -) 250 mg PO DAILY [facility] Last Admin: 06/20/17 09:04 Dose: 250 mg Aspirin (Asa -) 81 mg PO DAILY [facility] Last Admin: 06/20/17 09:00 Dose: 81 mg Clonazepam (Klonopin -) 1 mg PO DAILY [facility] Last Admin: 06/20/17 09:00 Dose: 1 mg Donepezil HCl (Aricept -) 10 mg PO DAILY [facility] Last Admin: 06/20/17 09:02 Dose: 10 mg Escitalopram Oxalate (Lexapro -) 10 mg PO DAILY [facility] Last Admin: 06/20/17 09:00 Dose: 10 mg Febuxostat (Uloric -) 40 mg PO DAILY [facility] Last Admin: 06/20/17 09:02 Dose: 40 mg Hydralazine HCl (Apresoline -) 10 mg PO BID [facility] Last Admin: 06/20/17 09:00 Dose: 10 mg Ceftriaxone Sodium 1 gm/ (Dextrose) 50 mls @ 100 mls/hr IVPB DAILY [facility] Last Admin: 06/20/17 09:03 Dose: 100 mls/hr Sodium Chloride (Normal Saline -) 1,000 mls @ 75 mls/hr IV ASDIR [facility] Last Admin: 06/20/17 04:03 Dose: 75 mls/hr Memantine (Namenda -) 5 mg PO BID [facility] Last Admin: 06/20/17 09:01 Dose: 5 mg Multivitamins/Minerals/Vitamin C (Tab-A-Vit -) 1 tab PO DAILY [facility] Last Admin: 06/20/17 09:01 Dose: 1 tab Nebivolol (Bystolic -) 10 mg PO DAILY [facility] Non-Formulary Medication (Mirabegron [Myrbetriq]) 25 mg PO DAILY [facility] Last Admin: 06/20/17 09:05 Dose: 25 mg Olanzapine (Zyprexa -) 5 mg PO BID [facility] Last Admin: 06/20/17 09:01 Dose: 5 mg Pantoprazole Sodium (Protonix -) 40 mg PO DAILY [facility] Last Admin: 06/20/17 09:00 Dose: 40 mg Rosuvastatin Calcium (Crestor -) 20 mg PO HS [facility] Last Admin: 06/19/17 21:22 Dose: 20 mg Tamsulosin HCl (Flomax -) 0.4 mg PO DAILY@0830 [facility] Last Admin: 06/20/17 08:28 Dose: 0.4 mg - Objective Vital Signs: Vital Signs Temperature 98.1 F 06/20/17 09:08 Pulse Rate 55 L 06/20/17 09:08 Respiratory Rate 20 06/20/17 09:08 Blood Pressure 160/75 06/20/17 09:08 O2 Sat by Pulse Oximetry (%) 95 06/20/17 03:00 Constitutional: Yes: Mild Distress Eyes: Yes: WNL HENT: Yes: WNL Neck: Yes: WNL Cardiovascular: Yes: Pulse Irregular Respiratory: Yes: Rhonchi Gastrointestinal: Yes: WNL Genitourinary: Yes: Incontinence Musculoskeletal: Yes: Muscle Weakness Extremities: Yes: Other Edema: Yes Edema: LLE: Trace, RLE: Trace Peripheral Pulses WNL: Yes Integumentary: Yes: WNL Wound/Incision: Yes: Clean/Dry Neurological: Yes: Pre-Existing Deficit, Weakness ...Motor Strength: LLE, RLE Psychiatric: Yes: Other Labs: CBC, BMP 06/19/17 06:35 06/19/17 06:35 INR, PTT INR 0.96 (0.82-1.09) 06/18/17 15:10 Problem List - Problems (1) GARRISON (acute kidney injury) Code(s): N17.9 - ACUTE KIDNEY FAILURE, UNSPECIFIED (2) UTI (urinary tract infection) Code(s): N39.0 - URINARY TRACT INFECTION, SITE NOT SPECIFIED (3) Acute metabolic encephalopathy Code(s): G93.41 - METABOLIC ENCEPHALOPATHY (4) Altered mental status Code(s): R41.82 - ALTERED MENTAL STATUS, UNSPECIFIED (5) Coughing Code(s): R05 - COUGH (6) Dementia Code(s): F03.90 - UNSPECIFIED DEMENTIA WITHOUT BEHAVIORAL DISTURBANCE (7) Hypertension Code(s): I10 - ESSENTIAL (PRIMARY) HYPERTENSION Qualifiers: Hypertension type: essential hypertension Qualified Code(s): I10 - Essential (primary) hypertension (8) NPH (normal pressure hydrocephalus) Code(s): G91.2 - (IDIOPATHIC) NORMAL PRESSURE HYDROCEPHALUS (9) Unsteady gait Code(s): R26.81 - UNSTEADINESS ON FEET (10) Weakness Code(s): R53.1 - WEAKNESS Assessment/Plan IV ABX AWAITING CULTURES OOB TO CAHIR INCENTIVE SPIROMETRY FOR COUGH ASPIRATION DIET ADJUSTED TO CHOPPED CHEST PHYSIOTHERAPY NEUROLOGY EVAL APPRECIATED NEUROSURGERY TP ADJUST SHUNT AFTER URINE INFECTION CLEARS
[2017-06-20] MEDS: NEBIVOLOL 10 MG TABLET (FP) PO SCH (11:20)
[2017-06-20] MEDS: ALBUTEROL SO4 0.083% IH SOL 2.5 MG/3 ML VIAL.NEB. NEB PRN (11:50)
--- NOTE | 2017-06-20 13:12 | PN ---
Progress Note, Physician History of Present Illness: Pt seen and examined at bedside. He is out of bed to chair. His mental status is improved. - Current Medication List Current Medications: Active Medications Albuterol Sulfate (Ventolin 0.083% Nebulizer Soln -) 1 amp NEB Q6H PRN PRN Reason: SHORT OF BREATH/WHEEZING Last Admin: 06/20/17 11:50 Dose: 1 amp Amino Acids (Prosource No Carb Liquid Pkt) 30 ml PO BID@0800,1730 [facility] Last Admin: 06/20/17 08:28 Dose: 30 ml Ascorbic Acid (Vitamin C -) 250 mg PO DAILY [facility] Last Admin: 06/20/17 09:04 Dose: 250 mg Aspirin (Asa -) 81 mg PO DAILY [facility] Last Admin: 06/20/17 09:00 Dose: 81 mg Clonazepam (Klonopin -) 1 mg PO DAILY [facility] Last Admin: 06/20/17 09:00 Dose: 1 mg Donepezil HCl (Aricept -) 10 mg PO DAILY [facility] Last Admin: 06/20/17 09:02 Dose: 10 mg Escitalopram Oxalate (Lexapro -) 10 mg PO DAILY [facility] Last Admin: 06/20/17 09:00 Dose: 10 mg Febuxostat (Uloric -) 40 mg PO DAILY [facility] Last Admin: 06/20/17 09:02 Dose: 40 mg Hydralazine HCl (Apresoline -) 10 mg PO BID [facility] Last Admin: 06/20/17 09:00 Dose: 10 mg Ceftriaxone Sodium 1 gm/ (Dextrose) 50 mls @ 100 mls/hr IVPB DAILY [facility] Last Admin: 06/20/17 09:03 Dose: 100 mls/hr Memantine (Namenda -) 5 mg PO BID [facility] Last Admin: 06/20/17 09:01 Dose: 5 mg Multivitamins/Minerals/Vitamin C (Tab-A-Vit -) 1 tab PO DAILY [facility] Last Admin: 06/20/17 09:01 Dose: 1 tab Nebivolol (Bystolic -) 10 mg PO DAILY [facility] Last Admin: 06/20/17 11:20 Dose: 10 mg Non-Formulary Medication (Mirabegron [Myrbetriq]) 25 mg PO DAILY [facility] Last Admin: 06/20/17 09:05 Dose: 25 mg Olanzapine (Zyprexa -) 5 mg PO BID [facility] Last Admin: 06/20/17 09:01 Dose: 5 mg Pantoprazole Sodium (Protonix -) 40 mg PO DAILY [facility] Last Admin: 06/20/17 09:00 Dose: 40 mg Rosuvastatin Calcium (Crestor -) 20 mg PO HS [facility] Last Admin: 06/19/17 21:22 Dose: 20 mg Tamsulosin HCl (Flomax -) 0.4 mg PO DAILY@0830 [facility] Last Admin: 06/20/17 08:28 Dose: 0.4 mg - Objective Vital Signs: Vital Signs Temperature 98.1 F 06/20/17 09:08 Pulse Rate 55 L 06/20/17 09:08 Respiratory Rate 20 06/20/17 09:08 Blood Pressure 160/75 06/20/17 09:08 O2 Sat by Pulse Oximetry (%) 95 06/20/17 03:00 Constitutional: Yes: Calm Eyes: Yes: Conjunctiva Clear HENT: Yes: Atraumatic Cardiovascular: Yes: S1, S2 Respiratory: Yes: CTA Bilaterally Gastrointestinal: Yes: Soft Genitourinary: Yes: WNL Musculoskeletal: Yes: Muscle Weakness Edema: Yes Edema: LLE: Trace, RLE: Trace Neurological: Yes: Other (mentals status is not back to baseline) Labs: CBC, BMP 06/19/17 06:35 06/19/17 06:35 INR, PTT INR 0.96 (0.82-1.09) 06/18/17 15:10 Problem List - Problems (1) GARRISON (acute kidney injury) Code(s): N17.9 - ACUTE KIDNEY FAILURE, UNSPECIFIED (2) CKD (chronic kidney disease) Code(s): N18.9 - CHRONIC KIDNEY DISEASE, UNSPECIFIED Assessment/Plan Current Medications Generic Name Dose Route Start Last Admin Trade Name Freq PRN Reason Stop Dose Admin Albuterol Sulfate 1 amp 06/19/17 16:11 06/20/17 11:50 Ventolin 0.083% Nebulizer Soln - NEB 1 amp Q6H PRN Administration SHORT OF BREATH/WHEEZING Amino Acids 30 ml 06/19/17 08:00 06/20/17 08:28 Prosource No Carb Liquid Pkt PO 30 ml BID@0800,1730 [facility] Administration Ascorbic Acid 250 mg 06/19/17 10:00 06/20/17 09:04 Vitamin C - PO 250 mg DAILY [facility] Administration Aspirin 81 mg 06/19/17 10:00 06/20/17 09:00 Asa - PO 81 mg DAILY [facility] Administration Clonazepam 1 mg 06/19/17 10:00 06/20/17 09:00 Klonopin - PO 1 mg DAILY [facility] Administration Donepezil HCl 10 mg 06/19/17 10:00 06/20/17 09:02 Aricept - PO 10 mg DAILY [facility] Administration Escitalopram Oxalate 10 mg 06/19/17 10:00 06/20/17 09:00 Lexapro - PO 10 mg DAILY [facility] Administration Febuxostat 40 mg 06/19/17 10:00 06/20/17 09:02 Uloric - PO 40 mg DAILY [facility] Administration Hydralazine HCl 10 mg 06/18/17 22:00 06/20/17 09:00 Apresoline - PO 10 mg BID [facility] Administration Ceftriaxone Sodium 1 gm/ 50 mls @ 100 mls/hr 06/19/17 10:00 06/20/17 09:03 Dextrose IVPB 100 mls/hr DAILY [facility] Administration Memantine 5 mg 06/18/17 22:00 06/20/17 09:01 Namenda - PO 5 mg BID [facility] Administration Multivitamins/Minerals/Vitamin C 1 tab 06/19/17 10:00 06/20/17 09:01 Tab-A-Vit - PO 1 tab DAILY [facility] Administration Nebivolol 10 mg 06/19/17 10:00 06/20/17 11:20 Bystolic - PO 10 mg DAILY [facility] Administration Non-Formulary Medication 25 mg 06/19/17 10:00 06/20/17 09:05 Mirabegron [Myrbetriq] PO 25 mg DAILY [facility] Administration Olanzapine 5 mg 06/18/17 22:00 06/20/17 09:01 Zyprexa - PO 5 mg BID [facility] Administration Pantoprazole Sodium 40 mg 06/19/17 10:00 06/20/17 09:00 Protonix - PO 40 mg DAILY [facility] Administration Rosuvastatin Calcium 20 mg 06/18/17 22:00 06/19/17 21:22 Crestor - PO 20 mg HS [facility] Administration Tamsulosin HCl 0.4 mg 06/19/17 08:30 06/20/17 08:28 Flomax - PO 0.4 mg DAILY@0830 [facility] Administration Impression 1. CKD 2. PKD 3. change in mental status 4. HTN 5. weakness 6. s/p fall 7. prostate cancer 8. dementia 9. hyperlipidemia 10. hyperkalemia 11. GARRISON Plan - stop fluids - check bmp - neuro follow up - discussed care with his - follow cultures - likely etiology of elevated creatinine is secondary to prerenal disease - will follow Dr Parra
[2017-06-20] MEDS ORDERED: INSULIN DETEMIR 100 UNITS/ML MDV SQ ONE (21:41)
[2017-06-20] MEDS: ROSUVASTATIN CA 20 MG TABLET (FP) PO SCH (21:51)
[2017-06-20] MEDS: NYSTATIN/TRIAMCINOLONE TOPICAL CREAM 15 GM TUBE TP SCH (21:51)
[2017-06-21] MEDS: TAMSULOSIN HCL 0.4 MG CAP.ER.24H (FP) PO SCH (08:00)
[2017-06-21] MEDS: AMINO ACIDS/PROTEIN HYDROLYS 30 ML LIQUID.PKT PO SCH ×2 (08:00→18:46)
[2017-06-21 08:03] LABS: ANION GAP 8 (8-16); BLOOD UREA NITROGEN 37 mg/dL (7-18); CALCIUM 8.6 mg/dL (8.5-10.1); CHLORIDE 109 mmol/L (98-107); CO2 28 mmol/L (21-32); CREATININE 1.7 mg/dL (0.7-1.3); GLUCOSE,RANDOM 89 mg/dL (74-106); MAGNESIUM 2.1 mg/dL (1.8-2.4); PHOSPHOROUS 4.3 mg/dL (2.5-4.9); POTASSIUM 4.8 mmol/L (3.5-5.1); SODIUM 145 mmol/L (136-145)
[2017-06-21] MEDS ORDERED: cefTRIAXone SODIUM 1 GM VIAL ONE (10:15)
[2017-06-21] MEDS ORDERED: DEXTROSE 5%-WATER - 50 ML IVPB ONE (10:16)
--- NOTE | 2017-06-21 10:35 | PN ---
Progress Note, Physician Chief Complaint: AWAKE IN THE CHAIR FEELING BETTER MORE ALERT USING SPIROMETRY - Current Medication List Current Medications: Active Medications Albuterol Sulfate (Ventolin 0.083% Nebulizer Soln -) 1 amp NEB Q6H PRN PRN Reason: SHORT OF BREATH/WHEEZING Last Admin: 06/20/17 11:50 Dose: 1 amp Amino Acids (Prosource No Carb Liquid Pkt) 30 ml PO BID@0800,1730 [facility] Last Admin: 06/21/17 08:00 Dose: 30 ml Ascorbic Acid (Vitamin C -) 250 mg PO DAILY [facility] Last Admin: 06/20/17 09:04 Dose: 250 mg Aspirin (Asa -) 81 mg PO DAILY [facility] Last Admin: 06/20/17 09:00 Dose: 81 mg Clonazepam (Klonopin -) 1 mg PO DAILY [facility] Last Admin: 06/20/17 09:00 Dose: 1 mg Donepezil HCl (Aricept -) 10 mg PO DAILY [facility] Last Admin: 06/20/17 09:02 Dose: 10 mg Escitalopram Oxalate (Lexapro -) 10 mg PO DAILY [facility] Last Admin: 06/20/17 09:00 Dose: 10 mg Febuxostat (Uloric -) 40 mg PO DAILY [facility] Last Admin: 06/20/17 09:02 Dose: 40 mg Hydralazine HCl (Apresoline -) 10 mg PO BID [facility] Last Admin: 06/20/17 21:50 Dose: 10 mg Ceftriaxone Sodium 1 gm/ (Dextrose) 50 mls @ 100 mls/hr IVPB DAILY [facility] Last Admin: 06/20/17 09:03 Dose: 100 mls/hr Memantine (Namenda -) 5 mg PO BID [facility] Last Admin: 06/20/17 21:50 Dose: 5 mg Multivitamins/Minerals/Vitamin C (Tab-A-Vit -) 1 tab PO DAILY [facility] Last Admin: 06/20/17 09:01 Dose: 1 tab Nebivolol (Bystolic -) 10 mg PO DAILY [facility] Last Admin: 06/20/17 11:20 Dose: 10 mg Non-Formulary Medication (Mirabegron [Myrbetriq]) 25 mg PO DAILY [facility] Last Admin: 06/20/17 09:05 Dose: 25 mg Nystatin/Triamcinolone Acetonide (Mycolog Ii Cream -) 1 applic TP BID [facility] Last Admin: 06/20/17 21:51 Dose: Not Given Olanzapine (Zyprexa -) 5 mg PO BID [facility] Last Admin: 06/20/17 21:50 Dose: 5 mg Pantoprazole Sodium (Protonix -) 40 mg PO DAILY [facility] Last Admin: 06/20/17 09:00 Dose: 40 mg Rosuvastatin Calcium (Crestor -) 20 mg PO HS [facility] Last Admin: 06/20/17 21:51 Dose: 20 mg Tamsulosin HCl (Flomax -) 0.4 mg PO DAILY@0830 [facility] Last Admin: 06/21/17 08:00 Dose: 0.4 mg - Objective Vital Signs: Vital Signs Temperature 98.3 F 06/21/17 08:29 Pulse Rate 53 L 06/21/17 08:29 Respiratory Rate 18 06/21/17 08:29 Blood Pressure 144/67 06/21/17 08:29 O2 Sat by Pulse Oximetry (%) 95 06/20/17 22:00 Constitutional: Yes: No Distress Eyes: Yes: WNL HENT: Yes: WNL Neck: Yes: WNL Cardiovascular: Yes: Pulse Irregular Respiratory: Yes: WNL Gastrointestinal: Yes: WNL Genitourinary: Yes: Incontinence Musculoskeletal: Yes: Muscle Weakness Extremities: Yes: WNL Edema: Yes Edema: LLE: Trace, RLE: Trace Peripheral Pulses WNL: Yes Integumentary: Yes: WNL Wound/Incision: Yes: Clean/Dry Neurological: Yes: Pre-Existing Deficit, Unsteady Gait ...Motor Strength: LLE, RLE Psychiatric: Yes: Other Labs: CBC, BMP 06/19/17 06:35 06/21/17 07:25 INR, PTT INR 0.96 (0.82-1.09) 06/18/17 15:10 Problem List - Problems (1) GARRISON (acute kidney injury) Code(s): N17.9 - ACUTE KIDNEY FAILURE, UNSPECIFIED (2) UTI (urinary tract infection) Code(s): N39.0 - URINARY TRACT INFECTION, SITE NOT SPECIFIED (3) Acute metabolic encephalopathy Code(s): G93.41 - METABOLIC ENCEPHALOPATHY (4) Altered mental status Code(s): R41.82 - ALTERED MENTAL STATUS, UNSPECIFIED (5) Coughing Code(s): R05 - COUGH (6) Dementia Code(s): F03.90 - UNSPECIFIED DEMENTIA WITHOUT BEHAVIORAL DISTURBANCE (7) Hypertension Code(s): I10 - ESSENTIAL (PRIMARY) HYPERTENSION Qualifiers: Hypertension type: essential hypertension Qualified Code(s): I10 - Essential (primary) hypertension (8) NPH (normal pressure hydrocephalus) Code(s): G91.2 - (IDIOPATHIC) NORMAL PRESSURE HYDROCEPHALUS (9) Unsteady gait Code(s): R26.81 - UNSTEADINESS ON FEET (10) Weakness Code(s): R53.1 - WEAKNESS Assessment/Plan AWAIT SENSITIVITY OF URINE CULTURE ON CEFTRIAXONE IV ID CONSULT OOB TO CHAIR WITH ICENTIVE SPIROMETRY DEMENTIA STABLE MORE ALERT PT EVAL
[2017-06-21] MEDS: MULTIVITAMINS (DAILY MVI) TABLET (FP) PO SCH (10:51)
[2017-06-21] MEDS: hydrALAZINE HCL 10 MG TABLET PO SCH ×2 (10:51→21:06)
[2017-06-21] MEDS: MEMANTINE HCL 5 MG TABLET (UD) PO SCH ×2 (10:51→21:06)
[2017-06-21] MEDS: clonazePAM 0.5 MG TABLET PO SCH (10:51)
[2017-06-21] MEDS: OLANZapine 5 MG TABLET PO SCH ×2 (10:52→21:06)
[2017-06-21] MEDS: ASCORBIC ACID 250 MG TABLET (FP) PO SCH (10:52)
[2017-06-21] MEDS: ASPIRIN 81 MG CHEWABLE TABLETS PO SCH (10:53)
[2017-06-21] MEDS: PANTOPRAZOLE 40 MG TABLET (FP) PO SCH (10:53)
[2017-06-21] MEDS: NEBIVOLOL 10 MG TABLET (FP) PO SCH (10:53)
[2017-06-21] MEDS: FEBUXOSTAT 40 MG TAB PO SCH (10:54)
[2017-06-21] MEDS: ESCITALOPRAM OXALATE 10 MG TABLET (FP) PO SCH (10:54)
[2017-06-21] MEDS: DONEPEZIL HCL 10 MG TABLET (FP) PO SCH (10:55)
[2017-06-21] MEDS: CEFTRIAXONE 1 GM in DEXTROSE 5%-WATER - 50 ML IVPB SCH (10:57)
--- NOTE | 2017-06-21 11:04 | PN ---
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
--- NOTE | 2017-06-21 11:46 | CONS ---
DATE OF CONSULTATION: HISTORY: The patient is an 86-year-old male with a history of recurrent urinary tract infections now evaluated for UTI. The patient was admitted to the hospital on June 18, 2017 from home with reports of altered mentation. The family reports that he had been increasingly confused over the 24-48 hours prior to hospital admission. They report that he has a history of recurrent urinary tract infections, and his usual presentation for UTI is altered mentation. In addition, he is noted to have cough. The patient was admitted to the hospital where a urinalysis showed many white cells. Urine culture is now growing group D streptococcal species. According to the notes, he has had improvement in his mental status since hospitalization. He has remained afebrile with a normal white blood cell count. He is out of bed to chair in no acute distress. He denies any focal complaint. No complaints of dysuria or hematuria. No suprapubic or flank pain. He confirms a history of recurrent urinary tract infections, however, denies developing dysuria, frequency, or urgency during these episodes. He has a history of prostate cancer and is status post prostate seeds. Of note, the patient has a history of normal pressure hydrocephalus and underwent a DIRECTOR OF MECHANICAL ENGINEERING shunt at [facility] on April 11, 2017. PAST MEDICAL HISTORY: Positive for normal pressure hydrocephalus, coronary artery disease, hypertension, chronic kidney disease. PAST SURGICAL HISTORY: Status post DIRECTOR OF MECHANICAL ENGINEERING shunt March 2017. He is coronary artery bypass. ALLERGIES: No known allergies. MEDICATIONS: Aspirin, Aricept, Lexapro, Apresoline, Tylenol, Zyprexa, Protonix, Crestor, Flomax, Klonopin, Namenda, Bystolic. SOCIAL HISTORY: He lives at home with family members. Nonsmoker. Nondrinker. SYSTEMS REVIEW: Neurologic: As per HPI. Cardiac: Negative chest pain or palpitations. Respiratory: Negative cough or sputum production. Gastrointestinal: Negative vomiting or diarrhea. Genitourinary: As per HPI. LABORATORY DATA: White count 8. No left shift. Hematocrit 35.5, platelet count 142, BUN 37, creatinine 1.7. Urinalysis, many white cells. Blood cultures negative. Urine culture, group D streptococcus. PHYSICAL EXAMINATION: General: He is out of bed to chair. He is not acutely toxic appearing in no acute distress. Vital Signs: Temperature 98.3, blood pressure 144/67, pulse 53 and regular, respirations 18 per minute. HEENT: Sclerae anicteric. Heart: Sounds S1, S2. Lungs: Clear. Abdomen: Obese, soft, nontender. No suprapubic or flank tenderness. Extremities: Have 1+ edema. IMPRESSION: 1. Recurrent urinary tract infection. 2. Toxic metabolic encephalopathy secondary to urinary tract infection. 3. Normal pressure hydrocephalus status post ventriculoperitoneal shunt. 4. Chronic kidney disease. PLAN: Await identification of urine isolet. We will substitute vancomycin adjusted for chronic kidney disease. Further recommendations pending culture results. We will follow. Thank you for the kind referral. RAYMOND PAK M.D. [place]/[id number]
[2017-06-21] MEDS ORDERED: VANCOMYCIN 1,000 MG in DEXTROSE 5%-WATER - 250 ML IVPB ONE (12:00)
[2017-06-21] MEDS: PATIENT'S OWN MEDICATION (NON-FORMULARY) (Mirabegron [Myrbetriq] 25 MG) PO SCH (12:05)
--- NOTE | 2017-06-21 12:47 | PN ---
Progress Note, Physician History of Present Illness: Pt seen and examined at bedside. He is more awake and alert today. His mental status is improved. - Current Medication List Current Medications: Active Medications Albuterol Sulfate (Ventolin 0.083% Nebulizer Soln -) 1 amp NEB Q6H PRN PRN Reason: SHORT OF BREATH/WHEEZING Last Admin: 06/20/17 11:50 Dose: 1 amp Amino Acids (Prosource No Carb Liquid Pkt) 30 ml PO BID@0800,1730 [facility] Last Admin: 06/21/17 08:00 Dose: 30 ml Ascorbic Acid (Vitamin C -) 250 mg PO DAILY [facility] Last Admin: 06/21/17 10:52 Dose: 250 mg Aspirin (Asa -) 81 mg PO DAILY [facility] Last Admin: 06/21/17 10:53 Dose: 81 mg Clonazepam (Klonopin -) 1 mg PO DAILY [facility] Last Admin: 06/21/17 10:51 Dose: 1 mg Donepezil HCl (Aricept -) 10 mg PO DAILY [facility] Last Admin: 06/21/17 10:55 Dose: 10 mg Escitalopram Oxalate (Lexapro -) 10 mg PO DAILY [facility] Last Admin: 06/21/17 10:54 Dose: 10 mg Febuxostat (Uloric -) 40 mg PO DAILY [facility] Last Admin: 06/21/17 10:54 Dose: 40 mg Hydralazine HCl (Apresoline -) 10 mg PO BID [facility] Last Admin: 06/21/17 10:51 Dose: 10 mg Vancomycin HCl 1,000 mg/ (Dextrose) 250 mls @ 166.667 mls/hr IVPB ONCE ONE Stop: 06/21/17 13:29 Memantine (Namenda -) 5 mg PO BID [facility] Last Admin: 06/21/17 10:51 Dose: 5 mg Multivitamins/Minerals/Vitamin C (Tab-A-Vit -) 1 tab PO DAILY [facility] Last Admin: 06/21/17 10:51 Dose: 1 tab Nebivolol (Bystolic -) 10 mg PO DAILY [facility] Last Admin: 06/21/17 10:53 Dose: 10 mg Non-Formulary Medication (Mirabegron [Myrbetriq]) 25 mg PO DAILY [facility] Last Admin: 06/21/17 12:05 Dose: 25 mg Nystatin/Triamcinolone Acetonide (Mycolog Ii Cream -) 1 applic TP BID [facility] Last Admin: 06/20/17 21:51 Dose: Not Given Olanzapine (Zyprexa -) 5 mg PO BID [facility] Last Admin: 06/21/17 10:52 Dose: 5 mg Pantoprazole Sodium (Protonix -) 40 mg PO DAILY [facility] Last Admin: 06/21/17 10:53 Dose: 40 mg Rosuvastatin Calcium (Crestor -) 20 mg PO HS [facility] Last Admin: 06/20/17 21:51 Dose: 20 mg Tamsulosin HCl (Flomax -) 0.4 mg PO DAILY@0830 [facility] Last Admin: 06/21/17 08:00 Dose: 0.4 mg - Objective Vital Signs: Vital Signs Temperature 98.3 F 06/21/17 08:29 Pulse Rate 53 L 06/21/17 08:29 Respiratory Rate 18 06/21/17 08:29 Blood Pressure 144/67 06/21/17 08:29 O2 Sat by Pulse Oximetry (%) 95 06/20/17 22:00 Constitutional: Yes: Calm Eyes: Yes: Conjunctiva Clear HENT: Yes: Atraumatic Neck: Yes: Supple Cardiovascular: Yes: S1, S2 Respiratory: Yes: CTA Bilaterally Gastrointestinal: Yes: Soft Genitourinary: Yes: WNL Musculoskeletal: Yes: WNL Edema: No Neurological: Yes: Oriented Labs: CBC, BMP 06/19/17 06:35 06/21/17 07:25 INR, PTT INR 0.96 (0.82-1.09) 06/18/17 15:10 Problem List - Problems (1) GARRISON (acute kidney injury) Code(s): N17.9 - ACUTE KIDNEY FAILURE, UNSPECIFIED (2) CKD (chronic kidney disease) Code(s): N18.9 - CHRONIC KIDNEY DISEASE, UNSPECIFIED Assessment/Plan Current Medications Generic Name Dose Route Start Last Admin Trade Name Freq PRN Reason Stop Dose Admin Albuterol Sulfate 1 amp 06/19/17 16:11 06/20/17 11:50 Ventolin 0.083% Nebulizer Soln - NEB 1 amp Q6H PRN Administration SHORT OF BREATH/WHEEZING Amino Acids 30 ml 06/19/17 08:00 06/21/17 08:00 Prosource No Carb Liquid Pkt PO 30 ml BID@0800,1730 [facility] Administration Ascorbic Acid 250 mg 06/19/17 10:00 06/21/17 10:52 Vitamin C - PO 250 mg DAILY [facility] Administration Aspirin 81 mg 06/19/17 10:00 06/21/17 10:53 Asa - PO 81 mg DAILY [facility] Administration Clonazepam 1 mg 06/19/17 10:00 06/21/17 10:51 Klonopin - PO 1 mg DAILY [facility] Administration Donepezil HCl 10 mg 06/19/17 10:00 06/21/17 10:55 Aricept - PO 10 mg DAILY [facility] Administration Escitalopram Oxalate 10 mg 06/19/17 10:00 06/21/17 10:54 Lexapro - PO 10 mg DAILY [facility] Administration Febuxostat 40 mg 06/19/17 10:00 06/21/17 10:54 Uloric - PO 40 mg DAILY [facility] Administration Hydralazine HCl 10 mg 06/18/17 22:00 06/21/17 10:51 Apresoline - PO 10 mg BID [facility] Administration Vancomycin HCl 1,000 mg/ 250 mls @ 166.667 mls/hr 06/21/17 12:00 Dextrose IVPB 06/21/17 13:29 ONCE ONE Memantine 5 mg 06/18/17 22:00 06/21/17 10:51 Namenda - PO 5 mg BID [facility] Administration Multivitamins/Minerals/Vitamin C 1 tab 06/19/17 10:00 06/21/17 10:51 Tab-A-Vit - PO 1 tab DAILY [facility] Administration Nebivolol 10 mg 06/19/17 10:00 06/21/17 10:53 Bystolic - PO 10 mg DAILY [facility] Administration Non-Formulary Medication 25 mg 06/19/17 10:00 06/21/17 12:05 Mirabegron [Myrbetriq] PO 25 mg DAILY [facility] Administration Nystatin/Triamcinolone Acetonide 1 applic 06/20/17 22:00 06/20/17 21:51 Mycolog Ii Cream - TP Not Given BID [facility] Olanzapine 5 mg 06/18/17 22:00 06/21/17 10:52 Zyprexa - PO 5 mg BID [facility] Administration Pantoprazole Sodium 40 mg 06/19/17 10:00 06/21/17 10:53 Protonix - PO 40 mg DAILY [facility] Administration Rosuvastatin Calcium 20 mg 06/18/17 22:00 06/20/17 21:51 Crestor - PO 20 mg HS [facility] Administration Tamsulosin HCl 0.4 mg 06/19/17 08:30 06/21/17 08:00 Flomax - PO 0.4 mg DAILY@0830 [facility] Administration Impression 1. CKD 2. PKD 3. change in mental status 4. HTN 5. weakness 6. s/p fall 7. prostate cancer 8. dementia 9. hyperlipidemia 10. hyperkalemia 11. GARRISON 12. UTI Plan - renal function is improving - cont abx - urine culture positive - ID input appreciated - neuro follow up - will follow Dr Parra
[2017-06-21] MEDS: ALBUTEROL SO4 0.083% IH SOL 2.5 MG/3 ML VIAL.NEB. NEB PRN ×2 (14:10→19:30)
[2017-06-21] MEDS ORDERED: PT OWN MED DRAWER 7, Y5N ONE (17:22)
[2017-06-21] MEDS: NYSTATIN/TRIAMCINOLONE TOPICAL CREAM 15 GM TUBE TP SCH ×2 (19:03→21:07)
[2017-06-21] MEDS: ROSUVASTATIN CA 20 MG TABLET (FP) PO SCH (21:06)
[2017-06-22] MEDS: TAMSULOSIN HCL 0.4 MG CAP.ER.24H (FP) PO SCH (08:27)
[2017-06-22] MEDS: AMINO ACIDS/PROTEIN HYDROLYS 30 ML LIQUID.PKT PO SCH (08:27)
[2017-06-22] MEDS ORDERED: clonazePAM 0.5 MG TABLET PO SCH (10:00)
[2017-06-22] MEDS: MEMANTINE HCL 5 MG TABLET (UD) PO SCH (10:03)
[2017-06-22] MEDS: MULTIVITAMINS (DAILY MVI) TABLET (FP) PO SCH (10:03)
[2017-06-22] MEDS: PANTOPRAZOLE 40 MG TABLET (FP) PO SCH (10:03)
[2017-06-22] MEDS: ESCITALOPRAM OXALATE 10 MG TABLET (FP) PO SCH (10:03)
[2017-06-22] MEDS: PATIENT'S OWN MEDICATION (NON-FORMULARY) (Mirabegron [Myrbetriq] 25 MG) PO SCH (10:04)
[2017-06-22] MEDS: hydrALAZINE HCL 10 MG TABLET PO SCH (10:04)
[2017-06-22] MEDS: ASPIRIN 81 MG CHEWABLE TABLETS PO SCH (10:04)
[2017-06-22] MEDS: ASCORBIC ACID 250 MG TABLET (FP) PO SCH (10:04)
[2017-06-22] MEDS: DONEPEZIL HCL 10 MG TABLET (FP) PO SCH (10:05)
[2017-06-22] MEDS: NEBIVOLOL 10 MG TABLET (FP) PO SCH (10:05)
[2017-06-22] MEDS: FEBUXOSTAT 40 MG TAB PO SCH (10:05)
[2017-06-22] MEDS: NYSTATIN/TRIAMCINOLONE TOPICAL CREAM 15 GM TUBE TP SCH ×2 (10:11→13:19)
--- NOTE | 2017-06-22 10:46 | PN ---
Progress Note, Physician Chief Complaint: AWAKE ALERT NAD SITTING IN CHAIR - Current Medication List Current Medications: Active Medications Albuterol Sulfate (Ventolin 0.083% Nebulizer Soln -) 1 amp NEB Q6H PRN PRN Reason: SHORT OF BREATH/WHEEZING Last Admin: 06/21/17 19:30 Dose: 1 amp Amino Acids (Prosource No Carb Liquid Pkt) 30 ml PO BID@0800,1730 [facility] Last Admin: 06/22/17 08:27 Dose: 30 ml Ascorbic Acid (Vitamin C -) 250 mg PO DAILY [facility] Last Admin: 06/22/17 10:04 Dose: 250 mg Aspirin (Asa -) 81 mg PO DAILY [facility] Last Admin: 06/22/17 10:04 Dose: 81 mg Clonazepam (Klonopin -) 0.5 mg PO DAILY [facility] Last Admin: 06/22/17 10:03 Dose: 0.5 mg Donepezil HCl (Aricept -) 10 mg PO DAILY [facility] Last Admin: 06/22/17 10:05 Dose: 10 mg Escitalopram Oxalate (Lexapro -) 10 mg PO DAILY [facility] Last Admin: 06/22/17 10:03 Dose: 10 mg Febuxostat (Uloric -) 40 mg PO DAILY [facility] Last Admin: 06/22/17 10:05 Dose: 40 mg Hydralazine HCl (Apresoline -) 10 mg PO BID [facility] Last Admin: 06/22/17 10:04 Dose: 10 mg Memantine (Namenda -) 5 mg PO BID [facility] Last Admin: 06/22/17 10:03 Dose: 5 mg Multivitamins/Minerals/Vitamin C (Tab-A-Vit -) 1 tab PO DAILY [facility] Last Admin: 06/22/17 10:03 Dose: 1 tab Nebivolol (Bystolic -) 10 mg PO DAILY [facility] Last Admin: 06/22/17 10:05 Dose: 10 mg Non-Formulary Medication (Mirabegron [Myrbetriq]) 25 mg PO DAILY [facility] Last Admin: 06/22/17 10:04 Dose: 25 mg Nystatin/Triamcinolone Acetonide (Mycolog Ii Cream -) 1 applic TP BID [facility] Last Admin: 06/22/17 10:11 Dose: Not Given Olanzapine (Zyprexa -) 5 mg PO [facility] Pantoprazole Sodium (Protonix -) 40 mg PO DAILY [facility] Last Admin: 06/22/17 10:03 Dose: 40 mg Rosuvastatin Calcium (Crestor -) 20 mg PO HS [facility] Last Admin: 06/21/17 21:06 Dose: 20 mg Tamsulosin HCl (Flomax -) 0.4 mg PO DAILY@0830 [facility] Last Admin: 06/22/17 08:27 Dose: 0.4 mg - Objective Vital Signs: Vital Signs Temperature 97.5 F L 06/22/17 06:00 Pulse Rate 53 L 06/22/17 06:00 Respiratory Rate 20 06/22/17 06:00 Blood Pressure 150/66 06/22/17 06:00 O2 Sat by Pulse Oximetry (%) 93 L 06/21/17 21:00 Constitutional: Yes: Mild Distress Eyes: Yes: WNL HENT: Yes: WNL Neck: Yes: WNL Cardiovascular: Yes: Pulse Irregular Respiratory: Yes: Cough Gastrointestinal: Yes: WNL Genitourinary: Yes: Incontinence Musculoskeletal: Yes: Muscle Weakness Extremities: Yes: Other Edema: No Peripheral Pulses WNL: Yes Integumentary: Yes: WNL Wound/Incision: Yes: Clean/Dry Neurological: Yes: Pre-Existing Deficit, Unsteady Gait ...Motor Strength: LLE, RLE Psychiatric: Yes: Other Labs: CBC, BMP 06/19/17 06:35 06/21/17 07:25 INR, PTT INR 0.96 (0.82-1.09) 06/18/17 15:10 Problem List - Problems (1) GARRISON (acute kidney injury) Code(s): N17.9 - ACUTE KIDNEY FAILURE, UNSPECIFIED (2) UTI (urinary tract infection) Code(s): N39.0 - URINARY TRACT INFECTION, SITE NOT SPECIFIED (3) Acute metabolic encephalopathy Code(s): G93.41 - METABOLIC ENCEPHALOPATHY (4) Altered mental status Code(s): R41.82 - ALTERED MENTAL STATUS, UNSPECIFIED (5) Coughing Code(s): R05 - COUGH (6) Dementia Code(s): F03.90 - UNSPECIFIED DEMENTIA WITHOUT BEHAVIORAL DISTURBANCE (7) Hypertension Code(s): I10 - ESSENTIAL (PRIMARY) HYPERTENSION Qualifiers: Hypertension type: essential hypertension Qualified Code(s): I10 - Essential (primary) hypertension (8) NPH (normal pressure hydrocephalus) Code(s): G91.2 - (IDIOPATHIC) NORMAL PRESSURE HYDROCEPHALUS (9) Unsteady gait Code(s): R26.81 - UNSTEADINESS ON FEET (10) Weakness Code(s): R53.1 - WEAKNESS Assessment/Plan MENTALLY MORE ALERT DECREASE ZYPREXA TO HS ONLY AND KLONOPIN DECREASED FROM 1MG TO 0.5MG OOB TO CHAIR INCENTIVE SPIROMETRY IV ABX
--- NOTE | 2017-06-22 10:56 | DS ---
Physical Examination Vital Signs: Vital Signs Temperature 97.5 F L 06/22/17 06:00 Pulse Rate 53 L 06/22/17 06:00 Respiratory Rate 20 06/22/17 06:00 Blood Pressure 150/66 06/22/17 06:00 O2 Sat by Pulse Oximetry (%) 93 L 06/21/17 21:00 Findings/Remarks: SENSITIVITY FOR URINE CULTURE IS BACK ORAL MEDS STARTED CEFTIN 250MG BID 3 DAYS Constitutional: Yes: No Distress Labs: CBC, BMP 06/19/17 06:35 06/21/17 07:25 Discharge Summary Reason For Visit: URINARY TRACT INFECTION Current Active Problems GARRISON (acute kidney injury) (Acute) Bradycardia (Acute) UTI (urinary tract infection) (Acute) Procedures: Principal: MICHELLE HERNANDEZ Hospital Course: ADMITTED FOR IV ABX MENTAL STATUS CHANGE , NEURO WORKUP IMPROVED WILL DC HOME Condition: Stable - Instructions Diet, Activity, Other Instructions: CHOPPED DYSPHAGIA DIET Referrals: Natalya Rae MD [Primary Care Provider] - Disposition: VNS/HOME HEALTH CARE - Home Medications Comprehensive Discharge Medication List: Ambulatory Orders Aspirin [ASA -] 81 mg PO DAILY 04/05/17 Donepezil HCl [Aricept -] 10 mg PO DAILY 04/05/17 Escitalopram Oxalate [Lexapro -] 10 mg PO DAILY 04/05/17 hydrALAZINE HCL [Apresoline -] 10 mg PO BID 04/05/17 Acetaminophen [Tylenol .Regular Strength -] 650 mg PO Q6H PRN tablet 04/15/17 Amino Acids/Protein Hydrolys [Prosource No Carb Liquid Pkt] 30 ml PO BID@0800, 1730 packet 04/15/17 Ascorbic Acid [Vitamin C -] 250 mg PO DAILY tablet 04/15/17 Multivitamins [Multivit ([facility] Formulary)] 1 tab PO DAILY tab 04/15/17 Olanzapine [Zyprexa -] 5 mg PO BID tablet 04/15/17 Pantoprazole Sodium [Protonix -] 40 mg PO DAILY tablet.ec 04/15/17 Rosuvastatin [Crestor -] 20 mg PO HS tablet 04/15/17 Tamsulosin HCl [Flomax -] 0.4 mg PO DAILY@0830 cap.er.24h 04/15/17 Clonazepam [Klonopin] 1 mg PO DAILY 06/18/17 Febuxostat [Uloric] 40 mg PO DAILY 06/18/17 Memantine HCl [Namenda -] 5 mg PO BID 06/18/17 Mirabegron [Myrbetriq] 25 mg PO DAILY 06/18/17 Nebivolol HCl [Bystolic] 10 mg PO DAILY 06/18/17
[2017-06-22] MEDS ORDERED: CEFUROXIME AXETIL 250 MG TABLET PO SCH (11:00)
[2017-06-22 11:17] LABS: HEMOGLOBIN 11.6 GM/dL (11.7-16.9); MCH 24.9 pg (25.7-33.7); MCHC 31.5 g/dl (32.0-35.9); MEAN CELL VOLUME 79.1 fl (80-96); PLATELET COUNT 150 K/MM3 (134-434); RBC 4.67 M/mm3 (4.00-5.60); RDW 15.1 % (11.9-15.9); WHITE BLOOD COUNT 7.8 K/mm3 (4.0-10.0)
[2017-06-22 11:21] LABS: ANION GAP 9 (8-16); BLOOD UREA NITROGEN 42 mg/dL (7-18); CALCIUM 8.6 mg/dL (8.5-10.1); CHLORIDE 107 mmol/L (98-107); CO2 27 mmol/L (21-32); CREATININE 1.7 mg/dL (0.7-1.3); GLUCOSE,RANDOM 95 mg/dL (74-106); MAGNESIUM 2.2 mg/dL (1.8-2.4); PHOSPHOROUS 4.6 mg/dL (2.5-4.9); POTASSIUM 4.8 mmol/L (3.5-5.1); SODIUM 143 mmol/L (136-145)
--- NOTE | 2017-06-22 11:49 | PN ---
Progress Note, Physician History of Present Illness: OOB in chair Offers no complaints Denies dysuria/ hematuria No suprapubic or flank pain No fever/ chiils BC (-) Urine E. faecalis - Current Medication List Current Medications: Active Medications Albuterol Sulfate (Ventolin 0.083% Nebulizer Soln -) 1 amp NEB Q6H PRN PRN Reason: SHORT OF BREATH/WHEEZING Last Admin: 06/21/17 19:30 Dose: 1 amp Amino Acids (Prosource No Carb Liquid Pkt) 30 ml PO BID@0800,1730 [facility] Last Admin: 06/22/17 08:27 Dose: 30 ml Amoxicillin (Amoxicillin -) 500 mg PO TID [facility] Ascorbic Acid (Vitamin C -) 250 mg PO DAILY [facility] Last Admin: 06/22/17 10:04 Dose: 250 mg Aspirin (Asa -) 81 mg PO DAILY [facility] Last Admin: 06/22/17 10:04 Dose: 81 mg Clonazepam (Klonopin -) 0.5 mg PO DAILY [facility] Last Admin: 06/22/17 10:03 Dose: 0.5 mg Donepezil HCl (Aricept -) 10 mg PO DAILY [facility] Last Admin: 06/22/17 10:05 Dose: 10 mg Escitalopram Oxalate (Lexapro -) 10 mg PO DAILY [facility] Last Admin: 06/22/17 10:03 Dose: 10 mg Febuxostat (Uloric -) 40 mg PO DAILY [facility] Last Admin: 06/22/17 10:05 Dose: 40 mg Hydralazine HCl (Apresoline -) 10 mg PO BID [facility] Last Admin: 06/22/17 10:04 Dose: 10 mg Memantine (Namenda -) 5 mg PO BID [facility] Last Admin: 06/22/17 10:03 Dose: 5 mg Multivitamins/Minerals/Vitamin C (Tab-A-Vit -) 1 tab PO DAILY [facility] Last Admin: 06/22/17 10:03 Dose: 1 tab Nebivolol (Bystolic -) 10 mg PO DAILY [facility] Last Admin: 06/22/17 10:05 Dose: 10 mg Non-Formulary Medication (Mirabegron [Myrbetriq]) 25 mg PO DAILY [facility] Last Admin: 06/22/17 10:04 Dose: 25 mg Nystatin/Triamcinolone Acetonide (Mycolog Ii Cream -) 1 applic TP BID [facility] Last Admin: 06/22/17 10:11 Dose: Not Given Olanzapine (Zyprexa -) 5 mg PO [facility] Pantoprazole Sodium (Protonix -) 40 mg PO DAILY [facility] Last Admin: 06/22/17 10:03 Dose: 40 mg Rosuvastatin Calcium (Crestor -) 20 mg PO HS [facility] Last Admin: 06/21/17 21:06 Dose: 20 mg Tamsulosin HCl (Flomax -) 0.4 mg PO DAILY@0830 [facility] Last Admin: 06/22/17 08:27 Dose: 0.4 mg - Objective Vital Signs: Vital Signs Temperature 97.5 F L 06/22/17 06:00 Pulse Rate 53 L 06/22/17 06:00 Respiratory Rate 20 06/22/17 06:00 Blood Pressure 150/66 06/22/17 06:00 O2 Sat by Pulse Oximetry (%) 93 L 06/21/17 21:00 Constitutional: Yes: No Distress, Obese Eyes: Yes: Conjunctiva Clear Cardiovascular: Yes: Regular Rate and Rhythm Respiratory: Yes: CTA Bilaterally Gastrointestinal: Yes: Normal Bowel Sounds, Soft, Abdomen, Obese. No: Tenderness Edema: No Labs: CBC, BMP 06/22/17 11:05 06/22/17 11:00 INR, PTT INR 0.96 (0.82-1.09) 06/18/17 15:10 Assessment/Plan UTI Enterococcus Toxic metabolic encephalopathy S/P SERVICE DIRECTOR shunt CKD Substitute po amoxicillin for additional 7d
[2017-06-22] MEDS ORDERED: PT OWN MED DRAWER 7, Y5N ONE ×2 (11:57→13:14)
--- NOTE | 2017-06-22 13:39 | PN ---
Progress Note, Physician History of Present Illness: Pt seen and examined at bedside. He is awake and appears comfortable. - Current Medication List Current Medications: Active Medications Albuterol Sulfate (Ventolin 0.083% Nebulizer Soln -) 1 amp NEB Q6H PRN PRN Reason: SHORT OF BREATH/WHEEZING Last Admin: 06/21/17 19:30 Dose: 1 amp Amino Acids (Prosource No Carb Liquid Pkt) 30 ml PO BID@0800,1730 [facility] Last Admin: 06/22/17 08:27 Dose: 30 ml Amoxicillin (Amoxicillin -) 500 mg PO TID [facility] Last Admin: 06/22/17 13:19 Dose: 500 mg Ascorbic Acid (Vitamin C -) 250 mg PO DAILY [facility] Last Admin: 06/22/17 10:04 Dose: 250 mg Aspirin (Asa -) 81 mg PO DAILY [facility] Last Admin: 06/22/17 10:04 Dose: 81 mg Clonazepam (Klonopin -) 0.5 mg PO DAILY [facility] Last Admin: 06/22/17 10:03 Dose: 0.5 mg Donepezil HCl (Aricept -) 10 mg PO DAILY [facility] Last Admin: 06/22/17 10:05 Dose: 10 mg Escitalopram Oxalate (Lexapro -) 10 mg PO DAILY [facility] Last Admin: 06/22/17 10:03 Dose: 10 mg Febuxostat (Uloric -) 40 mg PO DAILY [facility] Last Admin: 06/22/17 10:05 Dose: 40 mg Hydralazine HCl (Apresoline -) 10 mg PO BID [facility] Last Admin: 06/22/17 10:04 Dose: 10 mg Memantine (Namenda -) 5 mg PO BID [facility] Last Admin: 06/22/17 10:03 Dose: 5 mg Multivitamins/Minerals/Vitamin C (Tab-A-Vit -) 1 tab PO DAILY [facility] Last Admin: 06/22/17 10:03 Dose: 1 tab Nebivolol (Bystolic -) 10 mg PO DAILY [facility] Last Admin: 06/22/17 10:05 Dose: 10 mg Non-Formulary Medication (Mirabegron [Myrbetriq]) 25 mg PO DAILY [facility] Last Admin: 06/22/17 10:04 Dose: 25 mg Nystatin/Triamcinolone Acetonide (Mycolog Ii Cream -) 1 applic TP BID [facility] Last Admin: 06/22/17 13:19 Dose: 1 applic Olanzapine (Zyprexa -) 5 mg PO [facility] Pantoprazole Sodium (Protonix -) 40 mg PO DAILY [facility] Last Admin: 06/22/17 10:03 Dose: 40 mg Rosuvastatin Calcium (Crestor -) 20 mg PO HS [facility] Last Admin: 06/21/17 21:06 Dose: 20 mg Tamsulosin HCl (Flomax -) 0.4 mg PO DAILY@0830 [facility] Last Admin: 06/22/17 08:27 Dose: 0.4 mg - Objective Vital Signs: Vital Signs Temperature 97.5 F L 06/22/17 06:00 Pulse Rate 53 L 06/22/17 06:00 Respiratory Rate 20 06/22/17 06:00 Blood Pressure 150/66 06/22/17 06:00 O2 Sat by Pulse Oximetry (%) 93 L 06/21/17 21:00 Constitutional: Yes: Calm Eyes: Yes: Conjunctiva Clear HENT: Yes: Atraumatic Cardiovascular: Yes: S1, S2 Respiratory: Yes: CTA Bilaterally Gastrointestinal: Yes: Soft, Abdomen, Obese Genitourinary: Yes: WNL Musculoskeletal: Yes: WNL Edema: No Neurological: Yes: Oriented Labs: CBC, BMP 06/22/17 11:05 06/22/17 11:00 INR, PTT INR 0.96 (0.82-1.09) 06/18/17 15:10 Problem List - Problems (1) GARRISON (acute kidney injury) Code(s): N17.9 - ACUTE KIDNEY FAILURE, UNSPECIFIED (2) CKD (chronic kidney disease) Code(s): N18.9 - CHRONIC KIDNEY DISEASE, UNSPECIFIED Assessment/Plan Current Medications Generic Name Dose Route Start Last Admin Trade Name Freq PRN Reason Stop Dose Admin Albuterol Sulfate 1 amp 06/19/17 16:11 06/21/17 19:30 Ventolin 0.083% Nebulizer Soln - NEB 1 amp Q6H PRN Administration SHORT OF BREATH/WHEEZING Amino Acids 30 ml 06/19/17 08:00 06/22/17 08:27 Prosource No Carb Liquid Pkt PO 30 ml BID@0800,1730 [facility] Administration Amoxicillin 500 mg 06/22/17 14:00 06/22/17 13:19 Amoxicillin - PO 500 mg TID [facility] Administration Ascorbic Acid 250 mg 06/19/17 10:00 06/22/17 10:04 Vitamin C - PO 250 mg DAILY [facility] Administration Aspirin 81 mg 06/19/17 10:00 06/22/17 10:04 Asa - PO 81 mg DAILY [facility] Administration Clonazepam 0.5 mg 06/22/17 10:00 06/22/17 10:03 Klonopin - PO 0.5 mg DAILY [facility] Administration Donepezil HCl 10 mg 06/19/17 10:00 06/22/17 10:05 Aricept - PO 10 mg DAILY [facility] Administration Escitalopram Oxalate 10 mg 06/19/17 10:00 06/22/17 10:03 Lexapro - PO 10 mg DAILY [facility] Administration Febuxostat 40 mg 06/19/17 10:00 06/22/17 10:05 Uloric - PO 40 mg DAILY [facility] Administration Hydralazine HCl 10 mg 06/18/17 22:00 06/22/17 10:04 Apresoline - PO 10 mg BID [facility] Administration Memantine 5 mg 06/18/17 22:00 06/22/17 10:03 Namenda - PO 5 mg BID [facility] Administration Multivitamins/Minerals/Vitamin C 1 tab 06/19/17 10:00 06/22/17 10:03 Tab-A-Vit - PO 1 tab DAILY [facility] Administration Nebivolol 10 mg 06/19/17 10:00 06/22/17 10:05 Bystolic - PO 10 mg DAILY [facility] Administration Non-Formulary Medication 25 mg 06/19/17 10:00 06/22/17 10:04 Mirabegron [Myrbetriq] PO 25 mg DAILY [facility] Administration Nystatin/Triamcinolone Acetonide 1 applic 06/20/17 22:00 06/22/17 13:19 Mycolog Ii Cream - TP 1 applic BID [facility] Administration Olanzapine 5 mg 06/22/17 22:00 Zyprexa - PO HS [facility] Pantoprazole Sodium 40 mg 06/19/17 10:00 06/22/17 10:03 Protonix - PO 40 mg DAILY MITCH Administration Rosuvastatin Calcium 20 mg 06/18/17 22:00 06/21/17 21:06 Crestor - PO 20 mg HS MITCH Administration Tamsulosin HCl 0.4 mg 06/19/17 08:30 06/22/17 08:27 Flomax - PO 0.4 mg DAILY@0830 MITCH Administration Impression 1. CKD 2. PKD 3. change in mental status 4. HTN 5. weakness 6. s/p fall 7. prostate cancer 8. dementia 9. hyperlipidemia 10. hyperkalemia 11. GARRISON 12. UTI Plan - renal function is stable - abx per ID - cont current meds - mental status improving - will follow PRN - discussed case with his Dr Parra
[2017-06-22] MEDS ORDERED: AMOXICILLIN 500 MG CAPSULE (FP) PO SCH (14:00)
[2017-06-22 15:31] VITALS: BP 174/74; PULSE 52; TEMP 97.9
[2017-06-22] MEDS ORDERED: OLANZapine 5 MG TABLET PO SCH (22:00)
== END 2017-06-22 14:06 | disposition home health service (06) | DRG 689 ==
LOC: JER 14:14 → JERBED 18:35 → INTOOBSV 18:35 → UNDOADMOB 18:35 → JERBED 19:44 → J5S 21:37 → OBSVTOIN 06-20 09:00
PROVIDERS: ADMIT Internal Medicine; ATTEND Family Medicine
DX: N39.0 Urinary tract infection, site not specified (principal); G93.41 Metabolic encephalopathy; Q60.0 Renal agenesis, unilateral; G91.2 (Idiopathic) normal pressure hydrocephalus; N17.9 Acute kidney failure, unspecified; J98.11 Atelectasis; B95.2 Enterococcus as the cause of diseases classified elsewhere; F03.90 Unspecified dementia, unspecified severity, without behavioral disturbance, psychotic disturbance, mood disturbance, and anxiety; I25.10 Atherosclerotic heart disease of native coronary artery without angina pectoris; F32.9 Major depressive disorder, single episode, unspecified; E66.9 Obesity, unspecified; Z68.28 Body mass index [BMI] 28.0-28.9, adult; M10.9 Gout, unspecified; E87.5 Hyperkalemia; I45.10 Unspecified right bundle-branch block; R26.81 Unsteadiness on feet; R41.82 Altered mental status, unspecified; R53.1 Weakness; R00.1 Bradycardia, unspecified; I12.9 Hypertensive chronic kidney disease with stage 1 through stage 4 chronic kidney disease, or unspecified chronic kidney disease; N18.9 Chronic kidney disease, unspecified; Z85.46 Personal history of malignant neoplasm of prostate; Z95.2 Presence of prosthetic heart valve; Z95.1 Presence of aortocoronary bypass graft
CPT/HCPCS: 36415; 70450-TC; 71045-TC-FY; 76775-TC; 76856-TC; 80048; 80053; 81003; 81015; 82550; 82553; 82803; 83605; 83735; 84100; 84484; 85025; 85027; 85610; 87040; 87086; 87186; 93005; 93010; 94010; 94640; 97116-GP; 97161-GP; 99283-25; G0378; G0480; J7030

== ENCOUNTER 2017-09-14 11:55 | Inpatient (IN) | payer OTHER ==
--- NOTE | 2017-09-14 12:38 | PDOC ---
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 Hyman 04/13/17), prostate cancer, CAD, and HTN who presents to the emergency department for evaluation of lethargy. The patient reports a 1 week history of increasing lethargy. Pt's son states that the patient had been doing very well post VPS and that he was walking without assistance for the first time in 1.5 years. HE states 5 days ago , he seemed to become generally weak again and requiring assistance with ambulation. His son also reports that he began to be altered and "biting his " which is very out of character for him. HIs son called Dr. Ortiz this AM as well as Dr. Rae who advised to bring him to the ED. Pt denies cp, sob, visual changes, focal weakness, numbness/tingling in extremities, headache, dizziness, and cough. Denies f/c, n/v, diarrhea, constipation, and any urinary symptoms. Allergies: NKDA Social History: No alcohol, cigarette, or drug use reported. PCP: Dr. Haas Past History - Past Medical History Allergies/Adverse Reactions: Allergies Allergy/AdvReac Type Severity Reaction Status Date / Time No Known Allergies Allergy Verified 09/14/17 12:21 Home Medications: Ambulatory Orders Aspirin [ASA -] 81 mg PO DAILY 04/05/17 Donepezil HCl [Aricept -] 10 mg PO DAILY 04/05/17 Escitalopram Oxalate [Lexapro -] 10 mg PO DAILY 04/05/17 hydrALAZINE HCL [Apresoline -] 10 mg PO BID 04/05/17 Acetaminophen [Tylenol .Regular Strength -] 650 mg PO Q6H PRN tablet 04/15/17 Amino Acids/Protein Hydrolys [Prosource No Carb Liquid Pkt] 30 ml PO BID@0800, 1730 packet 04/15/17 Ascorbic Acid [Vitamin C -] 250 mg PO DAILY tablet 04/15/17 Multivitamins [Multivit ([facility] Formul[facility])] 1 tab PO DAILY tab 04/15/17 Pantoprazole Sodium [Protonix -] 40 mg PO DAILY tablet.ec 04/15/17 Rosuvastatin [Crestor -] 20 mg PO HS tablet 04/15/17 Tamsulosin HCl [Flomax -] 0.4 mg PO DAILY@0830 cap.er.24h 04/15/17 Febuxostat [Uloric] 40 mg PO DAILY 06/18/17 Memantine HCl [Namenda -] 5 mg PO BID 06/18/17 Mirabegron [Myrbetriq] 25 mg PO DAILY 06/18/17 Nebivolol HCl [Bystolic] 10 mg PO DAILY 06/18/17 Albuterol 0.083% Nebulizer Connie [Ventolin 0.083% Nebulizer Soln -] 1 amp NEB Q6H PRN amp 06/22/17 Amoxicillin - [Amoxicillin 500mg Capsule -] 500 mg PO TID #21 capsule 06/22/17 Nystatin/Triamcinolone Top Cr [Mycolog II -] 1 applic TP BID #90 applic Olanzapine [Zyprexa -] 5 mg PO HS tablet 06/22/17 clonazePAM [Klonopin -] 0.5 mg PO DAILY tablet MDD 1/2 TAB 06/22/17 Anemia: No Asthma: No Cancer: Yes (- prostate) Cardiac Disorders: Yes CVA: No COPD: No CHF: No Dementia: Yes Diabetes: No GI Disorders: No Disorders: Yes (born w/ one kidney) HTN: Yes Hypercholesterolemia: Yes Liver Disease: No Psychiatric Problems: Yes (depression) Seizures: No Thyroid Disease: No - Surgical History Abdominal Surgery: No Appendectomy: No Cardiac Surgery: Yes (open heart sx for valve replacement 2005) Cholecystectomy: No Lung Surgery: No Neurologic Surgery: No - Suicide/Smoking/Psychosocial Hx Smoking History: Never smoked Have you smoked in the past 12 months: No If you are a former smoker, when did you quit?: 1967 Hx Alcohol Use: No Drug/Substance Use Hx: No Substance Use Type: None Review of Systems - Review of Systems Comments:: 09/14/17 18:22 GENERAL/CONSTITUTIONAL: (+)Lethargy. No fever or chills. HEAD, EYES, EARS, NOSE AND THROAT: No change in vision. No ear pain or discharge. No sore throat. GASTROINTESTINAL: No nausea, vomiting, diarrhea or constipation. GENITOURINARY: No dysuria, frequency, or change in urination. CARDIOVASCULAR: No chest pain or shortness of breath. RESPIRATORY: No cough, wheezing, or hemoptysis. MUSCULOSKELETAL: No joint or muscle swelling or pain. No neck or back pain. SKIN: No rash NEUROLOGIC: No headache, vertigo, loss of consciousness, or change in strength/ sensation. ENDOCRINE: No increased thirst. No abnormal weight change. HEMATOLOGIC/LYMPHATIC: No anemia, easy bleeding, or history of blood clots. ALLERGIC/IMMUNOLOGIC: No hives or skin allergy. *Physical Exam - Vital Signs Last Vital Signs Temp Pulse Resp BP Pulse Ox 97.3 F L 55 L 16 154/59 96 09/14/17 12:19 09/14/17 12:19 09/14/17 12:19 09/14/17 12:19 09/14/17 12:19 - Physical Exam Comments: 09/14/17 18:22 GENERAL: Awake, alert, and fully oriented, in no acute distress ENT: Moist mucosa NECK: Normal ROM, supple. LUNGS: Breath sounds equal, clear to auscultation bilaterally. No wheezes, and no crackles HEART: juan manuel to 55 but regular, normal S1 and S2, no murmurs, rubs or gallops ABDOMEN: Soft, nontender, normoactive bowel sounds. No guarding, no rebound. No masses EXTREMITIES: Normal range of motion, no edema. No clubbing or cyanosis. No cords , erythema, or tenderness BACK: No midline spinal tenderness in cervical/thoracic/lumbar region NEUROLOGICAL: Normal speech, cranial nerves intact, negative pronator drift, 5/ 5 strength in all 4 extremities, normal sensation to light touch in all 4 extremities, normal cerebellar exam SKIN: Warm, Dry, normal turgor, no rashes or lesions noted. Heart Score/ECG Review #1 09/14/17 17:25 Twelve-lead EKG was performed and reviewed by me. Sinus bradycardia, rate 48.+ Right bundle branch block. No ST elevations. When compared to previous EKG, no significant changes. ED Treatment Course - LABORATORY CBC & Chemistry Diagram: 09/14/17 12:48 09/14/17 12:48 Medical Decision Making - Medical Decision Making 09/14/17 14:43 86yo M hx NPH s/p VPS, CAD presents to the ED with 1 week of progressive lethargy and AMS. Vitals with mild bradycardia to 55 but otherwise unremarkable . Exam wnl. Will check labs, EKG, UA, shunt series to look for infections, metabolic, or ischemic cause of sxs. 09/14/17 16:45 Labs remarkable for new GARRISON with ride operator of 2.5 and K of 6.1. HyperK cocktail ordered, EKG pending. Shunt series shows decreased in lat ventricle size compared to previous CTH likely 2/[address] Rae has been contacted for admission, awaiting a call back. 09/14/17 17:[address] Rae, pt to be admitted to hospitalist. Given recent VPS and AMS, Dr. Roca also c/s, awaiting a call back. UA still pending. 09/14/17 17:52 Case discussed with EKATERINA Lua. Pt admitted to m/s inpt bed. Case discussed in detail with admitting physician including history, physical exam and ancillary studies. Admitting physician has assumed care for the patient, will follow all pending diagnostics and will complete the evaluation and treatment. *DC/Admit/Observation/Transfer Diagnosis at time of Disposition: Hyperkalemia, Altered mental status, GARRISON (acute kidney injury) - Discharge Dispostion Condition at time of disposition: Stable Decision to Admit order: Yes - Referrals Referrals: Juan Haas [Primary Care Provider] - - Patient Instructions - Post Discharge Activity - Attestations Physician Attestion: 09/14/17 17:53 I, Dr. Chilango Duff MD, attest that this document has been prepared under my direction and personally reviewed by me in its entirety. I further attest, that it accurately reflects all work, treatment, procedures and medical decision -making performed by me.
[2017-09-14 12:57] LABS: BASO % 0.7 % (0-2.0); EOS % 2.9 % (0-4.5); HEMATOCRIT 38.6 % (35.4-49); HEMOGLOBIN 12.3 GM/dL (11.7-16.9); LYMPH % 28.9 % (8-40); MCH 25.2 pg (25.7-33.7); MCHC 31.9 g/dl (32.0-35.9); MEAN CELL VOLUME 79.1 fl (80-96); MEAN PLT VOLUME 9.7 fl (7.5-11.1); MONO % 8.1 % (3.8-10.2); NEUT % 59.4 % (42.8-82.8); PLATELET COUNT 174 K/MM3 (134-434); RBC 4.88 M/mm3 (4.00-5.60); RDW 14.8 % (11.9-15.9); WHITE BLOOD COUNT 7.6 K/mm3 (4.0-10.0)
[2017-09-14 13:21] LABS: INR 0.88 (0.82-1.09)
[2017-09-14 13:23] LABS: ALBUMIN 3.9 g/dl (3.4-5.0); ANION GAP 6 (8-16); BLOOD UREA NITROGEN 60 mg/dL (7-18); CALCIUM 8.4 mg/dL (8.5-10.1); CHLORIDE 109 mmol/L (98-107); CO2 23 mmol/L (21-32); CREATININE 2.6 mg/dL (0.7-1.3); GLUCOSE,RANDOM 87 mg/dL (74-106); SODIUM 138 mmol/L (136-145)
[2017-09-14 13:24] LABS: ACTIVATED PTT 26.4 SECONDS (25.2-36.5)
[2017-09-14 13:30] LABS: ALK PHOS 67 U/L (45-117); BILIRUBIN,TOTAL 0.2 mg/dL (0.2-1.0); SGOT/AST 20 U/L (15-37); SGPT/ALT 28 U/L (12-78)
[2017-09-14 13:33] LABS: POTASSIUM 6.1 mmol/L (3.5-5.1)
[2017-09-14] MEDS ORDERED: SODIUM BICARBONATE 8.4% 50 MEQ/50 ML VIAL IV ONE (14:54)
[2017-09-14] MEDS ORDERED: INSULIN REGULAR HUMAN 100 UNITS/ML *VIAL IVPUSH ONE (14:54)
[2017-09-14] MEDS ORDERED: DEXTROSE 50%-WATER - 25 GM/50 ML VIAL IVPUSH ONE (14:55)
[2017-09-14] MEDS ORDERED: DEXTROSE 50%-WATER 25 GM/50 ML DISP.SYRIN ONE (15:28)
[2017-09-14] MEDS ORDERED: SODIUM BICARBONATE 8.4% - 50 ML ONE (15:28)
[2017-09-14] MEDS ORDERED: INSULIN REGULAR HUMAN 100 UNITS/ML *VIAL ONE (17:35)
[2017-09-14] MEDS ORDERED: SODIUM CHLORIDE 1,000 ML IV SCH (18:30)
--- NOTE | 2017-09-14 18:36 | HP ---
CHIEF COMPLAINT: lethargy, ams, increase sleep PCP: Dr. Cifuentes HISTORY OF PRESENT ILLNESS: Patient is an 86 year old male with a significant past medical history of normal pressure hydrocephalus s/p SENIOR DATABASE PROGRAMMER shunt with Dr. Fajardo on 04/13/17, prostate cancer, CAD, and hypertension. Patient presents to the ED today for lethargy and altered mental status. Patient family reports that after the SENIOR DATABASE PROGRAMMER shunt was placed, patient was doing well and was ambulating without assistance, however, a few days ago, patient was noted to be sleeping more, was much weaker and became aggressive with his . He was also requiring assistance with ambulation in the past few weeks. Patient son brought him in for further evaluation. Patent in the ED states he feels well and in no distress. He denies chest pain , shortness of breath, visual changes, dizziness, or cough. ER course was notable for: (1) abdominal xray: right sided SENIOR DATABASE PROGRAMMER shunt extending to the right hemipelvis (2) creat 2.6, K 6.1 (3) head ct: interval collateral subdural hypodense collection/hygromas measures 8.5mm in width on the left and a 13mm in width on the right for which follow up CT scan is needed. Recent Travel: PAST MEDICAL HISTORY: PAST SURGICAL HISTORY: Social History: Smoking: n/a Alcohol: n/a Drugs: n/a Family History: Allergies No Known Allergies Allergy (Verified 09/14/17 12:21) HOME MEDICATIONS: Home Medications Medication Instructions Recorded Aspirin [ASA -] 81 mg PO DAILY 04/05/17 Donepezil HCl [Aricept -] 10 mg PO DAILY 04/05/17 Escitalopram Oxalate [Lexapro -] 10 mg PO DAILY 04/05/17 hydrALAZINE HCL [Apresoline -] 10 mg PO BID 04/05/17 Acetaminophen [Tylenol .Regular 650 mg PO Q6H PRN tablet 04/15/17 Strength -] Amino Acids/Protein Hydrolys 30 ml PO BID@0800,1730 packet 04/15/17 [Prosource No Carb Liquid Pkt] Ascorbic Acid [Vitamin C -] 250 mg PO DAILY tablet 04/15/17 Multivitamins [Multivit ([facility] 1 tab PO DAILY tab 04/15/17 Formulary)] Pantoprazole Sodium [Protonix -] 40 mg PO DAILY tablet.ec 04/15/17 Rosuvastatin [Crestor -] 20 mg PO HS tablet 04/15/17 Tamsulosin HCl [Flomax -] 0.4 mg PO DAILY@0830 cap.er.24h 04/15/17 Febuxostat [Uloric] 40 mg PO DAILY 06/18/17 Memantine HCl [Namenda -] 5 mg PO BID 06/18/17 Mirabegron [Myrbetriq] 25 mg PO DAILY 06/18/17 Nebivolol HCl [Bystolic] 10 mg PO DAILY 06/18/17 Albuterol 0.083% Nebulizer Connie 1 amp NEB Q6H PRN amp 06/22/17 [Ventolin 0.083% Nebulizer Soln -] Amoxicillin - [Amoxicillin 500mg 500 mg PO TID #21 capsule 06/22/17 Capsule -] Nystatin/Triamcinolone Top Cr 1 applic TP BID #90 applic 06/22/17 [Mycolog II -] Olanzapine [Zyprexa -] 5 mg PO HS tablet 06/22/17 clonazePAM [Klonopin -] 0.5 mg PO DAILY tablet MDD 1/2 TAB 06/22/17 Vital Signs - 24 hr 09/14/17 12:19 Temperature 97.3 F L Pulse Rate 55 L Respiratory 16 Rate Blood Pressure 154/59 O2 Sat by Pulse 96 Oximetry (%) GENERAL: Awake, alert, and fully oriented, in no acute distress. HEAD: Normal with no signs of trauma. EYES: Pupils equal, round and reactive to light, extraocular movements intact, sclera anicteric, conjunctiva clear. No lid lag. EARS, NOSE, THROAT: Ears normal, nares patent, oropharynx clear without exudates. Moist mucous membranes. NECK: Normal range of motion, supple without lymphadenopathy, JVD, or masses. LUNGS: Breath sounds equal, clear to auscultation bilaterally. No wheezes, and no crackles. No accessory muscle use. HEART: Regular rate and rhythm, normal S1 and S2 without murmur, rub or gallop. ABDOMEN: Soft, nontender, not distended, normoactive bowel sounds, no guarding MUSCULOSKELETAL: Normal range of motion at all joints. No bony deformities or tenderness. No CVA tenderness. UPPER EXTREMITIES: No clubbing. No peripheral edema. LOWER EXTREMITIES: No calf tenderness. No peripheral edema. NEUROLOGICAL: Normal speech. Normal gait. PSYCHIATRIC: Cooperative. Good eye contact. Appropriate mood and affect. SKIN: Warm, dry, normal turgor, no rashes or lesions noted, normal capillary refill. Laboratory Results - last 24 hr 09/14/17 09/14/17 09/14/17 12:48 12:48 12:48 WBC 7.6 RBC 4.88 Hgb 12.3 Hct 38.6 MCV 79.1 L MCH 25.2 L MCHC 31.9 L RDW 14.8 Plt Count 174 MPV 9.7 D Absolute Neuts (auto) 4.5 Neutrophils % 59.4 Lymphocytes % 28.9 Monocytes % 8.1 Eosinophils % 2.9 Basophils % 0.7 Nucleated RBC % 0 PT with INR 10.00 INR 0.88 PTT (Actin FS) 26.4 Sodium 138 Potassium 6.1 H* D Chloride 109 H Carbon Dioxide 23 Anion Gap 6 L BUN 60 H D Creatinine 2.6 H D Creat Clearance w eGFR 23.63 Random Glucose 87 Calcium 8.4 L Total Bilirubin 0.2 D AST 20 ALT 28 Alkaline Phosphatase 67 D Creatine Kinase 117 Troponin I < 0.02 D Total Protein 7.0 Albumin 3.9 09/14/17 14:00 WBC RBC Hgb Hct MCV MCH MCHC RDW Plt Count MPV Absolute Neuts (auto) Neutrophils % Lymphocytes % Monocytes % Eosinophils % Basophils % Nucleated RBC % PT with INR INR PTT (Actin FS) Sodium Potassium Chloride Carbon Dioxide Anion Gap BUN Creatinine Creat Clearance w eGFR Random Glucose Calcium Total Bilirubin AST ALT Alkaline Phosphatase Creatine Kinase Cancelled Troponin I Cancelled Total Protein Albumin ASSESSMENT/PLAN: Patient is an 86 year old male with a significant past medical history of normal pressure hydrocephalus s/p SENIOR DATABASE PROGRAMMER shunt with Dr. Smith on 04/13/17, prostate cancer, CAD, and hypertension. Patient presents to the ED today for lethargy and altered mental status. Patient family reports that after the SENIOR DATABASE PROGRAMMER shunt was placed, patient was doing well and was ambulating without assistance, however, a few days ago, patient was noted to be sleeping more, was much weaker and became aggressive with his . He was also requiring assistance with ambulation in the past few weeks. Patient son brought him in for further evaluation. Patent in the ED states he feels well and in no distress. He denies chest pain , shortness of breath, visual changes, dizziness, or cough. Neuro/ID: Acute encephalopathy of unclear etiology CT scan shows interval collateral subdural hypodense collection/hygromas measures 8.5mm in width on the left and a 13mm in width on the right for which follow up CT scan is needed. Neurosurgery consulted (Dr. Smith) neuro checks q 4, monitor mental status. Rule out acute infection, blood and urine cultures pending Follow up Head CT recommended per neuro ID consulted for further recommendations Card: Hypertension Continue home meds Monitor BP Renal GARRISON, acute on chronic Creat elevated 2.6, insert duque Bladder/kidney ultrasound ordered Monitor intake and output Renal consulted Hyperkalemia @6.1, resolved Given d50, Novolog protocol, repeat labs show stable K No EKG changes noted FEN gently hydrate overnight monitor chem panel regular diet prophy scds ambulation Visit type - Emergency Visit Emergency Visit: Yes ED Registration Date: 09/14/17 Care time: The patient presented to the Emergency Department on the above date and was hospitalized for further evaluation of their emergent condition. - New Patient This patient is new to me today: Yes Date on this admission: 09/14/17 - Critical Care Critical Care patient: No Hospitalist Screening - Colonoscopy Questionnaire Colonoscopy Questionnaire: Colonoscopy Questionnaire - Patient: 50 - 75 years old and never had a screening colonoscopy: Unknown History of colon or rectal polyps, or CA: Unknown History of IBD, Crohn's disease or UC: Unknown History of abdominal radiation therapy as a child: Unknown - Relative: 1 with colon or rectal CA, or polyps at age 60 or younger: Unknown Colon or rectal CA diagnosed at age 45 or younger: Unknown Multiple relatives with colon or rectal CA: Unknown - Outcome: Screening Result: Negative Screen
[2017-09-14 21:47] LABS: URINE APPEARANCE CLEAR; URINE BILIRUBIN NEGATIVE (<2.0 mg/dL); URINE COLOR LTYELLOW; URINE GLUCOSE (UA) NEGATIVE (NEGATIVE); URINE KETONE NEGATIVE (NEGATIVE); URINE LEUK ESTERASE TRACE (NEGATIVE); URINE NITRITE NEGATIVE (NEGATIVE); URINE UROBILINOGEN NEGATIVE mg/dL (0.2-1.0)
[2017-09-14 21:48] LABS: URINE PROTEIN 2+ (NEGATIVE)
[2017-09-14 21:52] LABS: EPI CELLS RARE /HPF (FEW); URINE HYALINE CAST 1 /lpf
[2017-09-14 22:00] LABS: ALBUMIN 3.7 g/dl (3.4-5.0); ALK PHOS 61 U/L (45-117); ANION GAP 6 (8-16); BILIRUBIN,TOTAL 0.2 mg/dL (0.2-1.0); BLOOD UREA NITROGEN 58 mg/dL (7-18); CALCIUM 8.3 mg/dL (8.5-10.1); CHLORIDE 112 mmol/L (98-107); CO2 24 mmol/L (21-32); CREATININE 2.6 mg/dL (0.7-1.3); GLUCOSE,RANDOM 90 mg/dL (74-106); POTASSIUM 5.1 mmol/L (3.5-5.1); SGOT/AST 16 U/L (15-37); SGPT/ALT 23 U/L (12-78); SODIUM 142 mmol/L (136-145); TOT PROT 6.4 g/dl (6.4-8.2)
[2017-09-14] MEDS ORDERED: clonazePAM 0.5 MG TABLET PO PRN (22:49)
[2017-09-15 01:27] LABS: MAGNESIUM 1.9 mg/dL (1.8-2.4); POTASSIUM 5.6 mmol/L (3.5-5.1)
[2017-09-15 07:31] LABS: HEMATOCRIT 39.5 % (35.4-49); HEMOGLOBIN 12.6 GM/dL (11.7-16.9); MCH 25.4 pg (25.7-33.7); MCHC 31.8 g/dl (32.0-35.9); MEAN CELL VOLUME 79.7 fl (80-96); MEAN PLT VOLUME 10.1 fl (7.5-11.1); PLATELET COUNT 153 K/MM3 (134-434); RBC 4.96 M/mm3 (4.00-5.60); RDW 15.5 % (11.9-15.9); WHITE BLOOD COUNT 8.8 K/mm3 (4.0-10.0)
[2017-09-15] MEDS: AMINO ACIDS/PROTEIN HYDROLYS 30 ML LIQUID.PKT PO SCH ×2 (07:50→17:07)
[2017-09-15] MEDS: TAMSULOSIN HCL 0.4 MG CAP.ER.24H (FP) PO SCH (07:50)
[2017-09-15 09:00] LABS: ALBUMIN 3.9 g/dl (3.4-5.0); ALK PHOS 68 U/L (45-117); ANION GAP 8 (8-16); BILIRUBIN,TOTAL 0.3 mg/dL (0.2-1.0); BLOOD UREA NITROGEN 56 mg/dL (7-18); CALCIUM 8.7 mg/dL (8.5-10.1); CHLORIDE 109 mmol/L (98-107); CO2 23 mmol/L (21-32); CREATININE 2.3 mg/dL (0.7-1.3); GLUCOSE,RANDOM 93 mg/dL (74-106); POTASSIUM 5.1 mmol/L (3.5-5.1); SGOT/AST 25 U/L (15-37); SGPT/ALT 30 U/L (12-78); SODIUM 140 mmol/L (136-145); TOT PROT 7.1 g/dl (6.4-8.2)
[2017-09-15] MEDS: DONEPEZIL HCL 10 MG TABLET (FP) PO SCH (09:03)
[2017-09-15] MEDS: PANTOPRAZOLE 40 MG TABLET (FP) PO SCH (09:03)
[2017-09-15] MEDS: hydrALAZINE HCL 10 MG TABLET PO SCH ×2 (09:03→21:42)
[2017-09-15] MEDS: NEBIVOLOL 10 MG TABLET (FP) PO SCH ×2 (09:04→09:53)
[2017-09-15] MEDS: ESCITALOPRAM OXALATE 10 MG TABLET (FP) PO SCH (09:04)
[2017-09-15] MEDS: MEMANTINE HCL 5 MG TABLET (UD) PO SCH ×2 (09:04→21:41)
[2017-09-15] MEDS ORDERED: amLODIPine BESYLATE 5 MG TABLET (FP) PO ONE (09:30)
--- NOTE | 2017-09-15 09:50 | PN ---
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
[2017-09-15] MEDS ORDERED: PT OWN MED DRAWER 7, Y5N ONE (09:54)
[2017-09-15] MEDS: FEBUXOSTAT 40 MG TAB PO SCH (09:55)
[2017-09-15] MEDS: ASCORBIC ACID 250 MG TABLET (FP) PO SCH (09:55)
[2017-09-15] MEDS ORDERED: ASPIRIN 81 MG CHEWABLE TABLETS PO SCH (10:00)
--- NOTE | 2017-09-15 10:21 | CONS ---
DATE OF CONSULTATION: DATE OF DICTATION: 09/15/2017 HISTORY: The patient is an 86-year-old male status post MIDDLEWARE SYSTEMS ARCHITECT shunt in March 2017 evaluated for possible sepsis. He was admitted to the hospital on September 14, 2017 with reports of altered mental status. According to the notes and family members, the patient had become increasingly lethargic and confused over the past 1 week. He became combative at times and was noted to be sleeping excessively. He was taken to the emergency room where he was admitted. In the past, the patient has had a history of recurrent urinary tract infections. His hallmark presentation for urinary tract infection was altered mental status. At the present time, he is awake and alert. He offers no complaints. He denies any recent febrile illness or shaking chills. No urinary tract complaints. He denies any dysuria or hematuria. No chest pain, shortness of breath, cough, or sputum production. Denies vomiting or diarrhea. Previous urine isolets have grown enterococcus. PAST MEDICAL HISTORY: Positive for normal pressure hydrocephalus, coronary artery disease, hypertension, chronic kidney disease, prostate cancer, hypertension. PAST SURGICAL HISTORY: Status post MIDDLEWARE SYSTEMS ARCHITECT shunt March 2017, coronary artery bypass. ALLERGIES: No known allergies. MEDICATIONS: Aspirin, Aricept, Lexapro, Apresoline, Protonix, Crestor, Flomax, Namenda, Bystolic. SOCIAL HISTORY: Resides at home with family members. Nonsmoker, nondrinker. SYSTEMS REVIEW: Neurologic: As per HPI. Cardiac: Negative chest pain or palpitations. Respiratory: Negative cough or sputum production. Gastrointestinal: Negative vomiting or diarrhea. Genitourinary: Negative for urinary tract infection. LABORATORY DATA: White count 8.8, hematocrit 39.5, platelet count 153, BUN 58, creatinine 2.6. Urinalysis with 9 white cells. Blood and urine cultures are pending. Chest x-ray negative for acute infiltrate. PHYSICAL EXAMINATION: General: He is awake and alert now talking to family members on the phone. Vital Signs: Temperature 98, blood pressure 163/70, pulse 49 and regular, respirations 18 per minute. HEENT: Sclerae anicteric. Neck: Supple. No tenderness or erythema over the shunt. Heart: Sounds S1, S2. Lungs: Clear bilaterally. No rales, rhonchi, or wheezing. Abdomen: Soft. No tenderness elicited. No mass, rebound, or rigidity. Extremities: Negative for edema. IMPRESSION: 1. Altered mental status. 2. Status post ventriculoperitoneal shunt. PLAN: No identifiable infectious focus at this time to account for altered mental status. The patient is afebrile with normal white blood cell count. We will observe off antibiotic therapy. Neurosurgical evaluation. MIDDLEWARE SYSTEMS ARCHITECT shunt. Thank you for the kind referral. RAYMOND PAK M.D. [id number]
--- NOTE | 2017-09-15 12:23 | PN ---
Progress Note, Physician - Current Medication List Current Medications: Active Medications Amino Acids (Prosource No Carb Liquid Pkt) 30 ml PO BID@0800,1730 [facility] Last Admin: 09/15/17 07:50 Dose: 30 ml Ascorbic Acid (Vitamin C -) 250 mg PO DAILY [facility] Last Admin: 09/15/17 09:55 Dose: 250 mg Aspirin (Asa -) 81 mg PO DAILY [facility] Last Admin: 09/15/17 09:04 Dose: 81 mg Clonazepam (Klonopin -) 0.5 mg PO Q24H PRN PRN Reason: AGITATION Stop: 09/15/17 22:48 Donepezil HCl (Aricept -) 10 mg PO DAILY [facility] Last Admin: 09/15/17 09:03 Dose: 10 mg Escitalopram Oxalate (Lexapro -) 10 mg PO DAILY [facility] Last Admin: 09/15/17 09:04 Dose: 10 mg Febuxostat (Uloric -) 40 mg PO DAILY [facility] Last Admin: 09/15/17 09:55 Dose: 40 mg Hydralazine HCl (Apresoline -) 10 mg PO BID [facility] Last Admin: 09/15/17 09:03 Dose: 10 mg Sodium Chloride (Normal Saline -) 1,000 mls @ 50 mls/hr IV ASDIR [facility] Stop: 09/15/17 18:19 Memantine (Namenda -) 5 mg PO BID [facility] Last Admin: 09/15/17 09:04 Dose: 5 mg Nebivolol (Bystolic -) 10 mg PO DAILY [facility] Last Admin: 09/15/17 09:04 Dose: Not Given Olanzapine (Zyprexa -) 5 mg PO [facility] Pantoprazole Sodium (Protonix -) 40 mg PO DAILY [facility] Last Admin: 09/15/17 09:03 Dose: 40 mg Rosuvastatin Calcium (Crestor -) 10 mg PO HS [facility] Tamsulosin HCl (Flomax -) 0.4 mg PO DAILY@0830 [facility] Last Admin: 09/15/17 07:50 Dose: 0.4 mg - Objective Vital Signs: Vital Signs Temperature 98 F 09/15/17 06:26 Pulse Rate 49 L 09/15/17 07:49 Respiratory Rate 18 09/15/17 07:49 Blood Pressure 163/70 09/15/17 07:49 O2 Sat by Pulse Oximetry (%) 97 09/14/17 22:38 Cardiovascular: Yes: S1, S2 Respiratory: Yes: Regular, CTA Bilaterally Gastrointestinal: Yes: Normal Bowel Sounds, Soft. No: Tenderness Neurological: Yes: Alert, Oriented Labs: CBC, BMP 09/15/17 06:00 09/15/17 06:00 INR, PTT INR 0.88 (0.82-1.09) 09/14/17 12:48 Problem List - Problems (1) Altered mental status Assessment/Plan: Neuro/ID: Acute encephalopathy of unclear etiology CT scan shows interval collateral subdural hypodense collection/hygromas measures 8.5mm in width on the left and a 13mm in width on the right for which follow up CT scan is needed. Neurosurgery consulted (Dr. Smith) neuro checks q 4, monitor mental status. Rule out acute infection, blood and urine cultures pending Follow up Head CT recommended per neuro ID consulted for further recommendations C Code(s): R41.82 - ALTERED MENTAL STATUS, UNSPECIFIED (2) Subdural hygroma Assessment/Plan: - ABOVE -NS -CT Code(s): D18.1 - LYMPHANGIOMA, ANY SITE (3) CKD (chronic kidney disease) Assessment/Plan: GARRISON, acute on chronic Creat elevated 2.6, insert duuqe Bladder/kidney ultrasound ordered Monitor intake and output Renal consulted Code(s): N18.9 - CHRONIC KIDNEY DISEASE, UNSPECIFIED (4) NPH (normal pressure hydrocephalus) Assessment/Plan: -S/P SHUNT Code(s): G91.2 - (IDIOPATHIC) NORMAL PRESSURE HYDROCEPHALUS (5) Hyperkalemia Assessment/Plan: Hyperkalemia @6.1, resolved Given d50, Novolog protocol, repeat labs show stable K No EKG changes noted Code(s): E87.5 - HYPERKALEMIA (6) Diabetes Assessment/Plan: -BGM ENDO Code(s): E11.9 - TYPE 2 DIABETES MELLITUS WITHOUT COMPLICATIONS
--- NOTE | 2017-09-15 15:34 | CONSULT ---
Consult Consult Specialty:: Nephrology Reason for Consultation:: GARRISON and hyperkalemia - History of Present Illness Chief Complaint: altered mental status History of Present Illness: Pt is and 86 year old male with pmhx of CKD, PKD, hydrocephalus, CAD, HTN and prostate cancer who presents to the ER with altered mental status. His is at bedside and assisted with history. His weakness and lethargy began about 5 days ago. His says that he is more talkative at night. He was given an antibiotic for a possible uti but she is unsure which one. He was found to be in acute renal failure and was found to be hyperkalemic. 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: Yes: Dementia, Other (hydrocephalus) Cardio/Vascular: Yes: CAD, HTN, Hyperlipdemia Renal/: Yes: Renal Inusuff, UTI, Other (PKD) Rheumatology: Yes: Gout - Past Surgical History Additional Surgical History: PAPER AND PRINTS RESTORER shunt - Alcohol/Substance Use Hx Alcohol Use: No - Smoking History Smoking history: Never smoked Have you smoked in the past 12 months: No If you are a former smoker, when did you quit?: 1966 - Social History Usual Living Arrangement: With Spouse Home Medications - Allergies Allergies/Adverse Reactions: Allergies Allergy/AdvReac Type Severity Reaction Status Date / Time No Known Allergies Allergy Verified 09/14/17 12:21 - Home Medications Home Medications: Ambulatory Orders Aspirin [ASA -] 81 mg PO DAILY 04/05/17 Donepezil HCl [Aricept -] 10 mg PO DAILY 04/05/17 Escitalopram Oxalate [Lexapro -] 10 mg PO DAILY 04/05/17 hydrALAZINE HCL [Apresoline -] 10 mg PO BID 04/05/17 Acetaminophen [Tylenol .Regular Strength -] 650 mg PO Q6H PRN tablet 04/15/17 Amino Acids/Protein Hydrolys [Prosource No Carb Liquid Pkt] 30 ml PO BID@0800, 1730 packet 04/15/17 Ascorbic Acid [Vitamin C -] 250 mg PO DAILY tablet 04/15/17 Multivitamins [Multivit ([facility] Formulary)] 1 tab PO DAILY tab 04/15/17 Pantoprazole Sodium [Protonix -] 40 mg PO DAILY tablet.ec 04/15/17 Rosuvastatin [Crestor -] 20 mg PO HS tablet 04/15/17 Tamsulosin HCl [Flomax -] 0.4 mg PO DAILY@0830 cap.er.24h 04/15/17 Febuxostat [Uloric] 40 mg PO DAILY 06/18/17 Memantine HCl [Namenda -] 5 mg PO BID 06/18/17 Mirabegron [Myrbetriq] 25 mg PO DAILY 06/18/17 Nebivolol HCl [Bystolic] 10 mg PO DAILY 06/18/17 Albuterol 0.083% Nebulizer Connie [Ventolin 0.083% Nebulizer Soln -] 1 amp NEB Q6H PRN amp 06/22/17 Amoxicillin - [Amoxicillin 500mg Capsule -] 500 mg PO TID #21 capsule 06/22/17 Nystatin/Triamcinolone Top Cr [Mycolog II -] 1 applic TP BID #90 applic Olanzapine [Zyprexa -] 5 mg PO HS tablet 06/22/17 clonazePAM [Klonopin -] 0.5 mg PO DAILY tablet MDD 1/2 TAB 06/22/17 Family Disease History - Family Disease History Family History: Denies Review of Systems - Review of Systems Constitutional: reports: Malaise. denies: Chills, Fever Eyes: reports: No Symptoms HENT: reports: No Symptoms Neck: reports: No Symptoms Cardiovascular: reports: No Symptoms Respiratory: reports: No Symptoms Gastrointestinal: reports: No Symptoms Genitourinary: reports: No Symptoms Musculoskeletal: reports: Muscle Weakness Neurological: reports: Change in LOC Endocrine: reports: No Symptoms Hematology/Lymphatic: reports: No Symptoms Psychiatric: reports: No Symptoms Physical Exam Vital Signs: Vital Signs Temperature 98 F 09/15/17 06:26 Pulse Rate 49 L 09/15/17 07:49 Respiratory Rate 18 09/15/17 09:00 Blood Pressure 163/70 09/15/17 07:49 O2 Sat by Pulse Oximetry (%) 97 09/15/17 09:00 Constitutional: Yes: Calm Eyes: Yes: Conjunctiva Clear Cardiovascular: Yes: S1, S2 Respiratory: Yes: CTA Bilaterally Gastrointestinal: Yes: Soft, Abdomen, Obese Renal/: Yes: WNL Musculoskeletal: Yes: Muscle Weakness Edema: No Integumentary: Yes: WNL Neurological: Yes: Pre-Existing Deficit Labs: CBC, BMP 09/15/17 06:00 09/15/17 06:00 Laboratory Tests 04/12/17 04/13/17 06/19/17 06:47 12:40 06:35 WBC Hgb Sodium Potassium Chloride Creatinine 2.0 H 1.8 H 1.9 H 06/21/17 06/22/17 09/14/17 07:25 11:00 12:48 WBC Hgb Sodium Potassium 6.1 H* D Chloride Creatinine 1.7 H 1.7 H 2.6 H D 09/14/17 09/15/17 09/15/17 21:00 06:00 06:00 WBC 8.8 Hgb 12.6 Sodium 140 Potassium 5.1 Chloride 109 H Creatinine 2.6 H 2.3 H Imaging - Results Chest X-ray: Report Reviewed Cat Scan: Report Reviewed Problem List - Problems (1) GARRISON (acute kidney injury) Code(s): N17.9 - ACUTE KIDNEY FAILURE, UNSPECIFIED (2) Altered mental status Code(s): R41.82 - ALTERED MENTAL STATUS, UNSPECIFIED (3) Diabetes Code(s): E11.9 - TYPE 2 DIABETES MELLITUS WITHOUT COMPLICATIONS (4) Hyperkalemia Code(s): E87.5 - HYPERKALEMIA (5) Subdural hygroma Code(s): D18.1 - LYMPHANGIOMA, ANY SITE (6) CKD (chronic kidney disease) Code(s): N18.9 - CHRONIC KIDNEY DISEASE, UNSPECIFIED (7) NPH (normal pressure hydrocephalus) Code(s): G91.2 - (IDIOPATHIC) NORMAL PRESSURE HYDROCEPHALUS (8) Renal insufficiency Code(s): N28.9 - DISORDER OF KIDNEY AND URETER, UNSPECIFIED (9) Weakness Code(s): R53.1 - WEAKNESS Assessment/Plan Current Medications Generic Name Dose Route Start Last Admin Trade Name Freq PRN Reason Stop Dose Admin Amino Acids 30 ml 09/15/17 08:00 09/15/17 07:50 Prosource No Carb Liquid Pkt PO 30 ml BID@0800,1730 MITCH Administration Ascorbic Acid 250 mg 09/15/17 10:00 09/15/17 09:55 Vitamin C - PO 250 mg DAILY MITCH Administration Clonazepam 0.5 mg 09/14/17 22:49 Klonopin - PO 09/15/17 22:48 Q24H PRN AGITATION Donepezil HCl 10 mg 09/15/17 10:00 09/15/17 09:03 Aricept - PO 10 mg DAILY MITCH Administration Escitalopram Oxalate 10 mg 09/15/17 10:00 09/15/17 09:04 Lexapro - PO 10 mg DAILY MITCH Administration Febuxostat 40 mg 09/15/17 10:00 09/15/17 09:55 Uloric - PO 40 mg DAILY MITCH Administration Hydralazine HCl 10 mg 09/15/17 10:00 09/15/17 09:03 Apresoline - PO 10 mg BID MITCH Administration Sodium Chloride 1,000 mls @ 50 mls/hr 09/14/17 18:30 Normal Saline - IV 09/15/17 18:19 ASDIR MITCH Memantine 5 mg 09/15/17 10:00 09/15/17 09:04 Namenda - PO 5 mg BID MITCH Administration Nebivolol 10 mg 09/15/17 10:00 09/15/17 09:04 Bystolic - PO Not Given DAILY MITCH Olanzapine 5 mg 09/15/17 22:00 Zyprexa - PO HS MITCH Pantoprazole Sodium 40 mg 09/15/17 10:00 09/15/17 09:03 Protonix - PO 40 mg DAILY MITCH Administration Rosuvastatin Calcium 10 mg 09/15/17 22:00 Crestor - PO HS MITCH Tamsulosin HCl 0.4 mg 09/15/17 08:30 09/15/17 07:50 Flomax - PO 0.4 mg DAILY@0830 MITCH Administration Impression 1. CKD 2. PKD 3. change in mental status 4. HTN 5. weakness 6. Hyperkalemia 7. prostate cancer 8. dementia 9. hyperlipidemia 10. GARRISON 11. 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 Plan - renal function is improving - potassium is improving - repeat labs in am - cont with fluids - will monitor renal function - urology eval - follow cultures Dr Parra
[2017-09-15] MEDS ORDERED: SODIUM CHLORIDE 0.45% 1,000 ML IV SCH (15:45)
--- NOTE | 2017-09-15 16:46 | CONSULT ---
Consult Consult Specialty:: endocrine Referred by:: dr.[email or web address] sanderson Reason for Consultation:: dm - History of Present Illness Chief Complaint: dizzy and difficulty walking History of Present Illness: 86 year old male with a significant past medical history of normal pressure hydrocephalus s/p HYDROLOGY TEACHER shunt with Dr. Fajardo on 04/13/17, prostate cancer, CAD, and hypertension. Patient presents to the ED today for lethargy and altered mental status. Patient family reports that after the HYDROLOGY TEACHER shunt was placed, patient was doing well and was ambulating without assistance, however, a few days ago, patient was noted to be sleeping more, was much weaker forgetful easily tired cold and dry skin. 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, Other (hydrocephalus) Cardio/Vascular: Yes: CAD, HTN, Hyperlipdemia Renal/: Yes: Renal Inusuff, UTI, Other (PKD) Rheumatology: Yes: Gout - Past Surgical History Additional Surgical History: HYDROLOGY TEACHER shunt - Alcohol/Substance Use Hx Alcohol Use: No - Smoking History Smoking history: Never smoked Have you smoked in the past 12 months: No If you are a former smoker, when did you quit?: 1967 - Social History Usual Living Arrangement: With Spouse Home Medications - Allergies Allergies/Adverse Reactions: Allergies Allergy/AdvReac Type Severity Reaction Status Date / Time No Known Allergies Allergy Verified 09/14/17 12:21 - Home Medications Home Medications: Ambulatory Orders Aspirin [ASA -] 81 mg PO DAILY 04/05/17 Donepezil HCl [Aricept -] 10 mg PO DAILY 04/05/17 Escitalopram Oxalate [Lexapro -] 10 mg PO DAILY 04/05/17 hydrALAZINE HCL [Apresoline -] 10 mg PO BID 04/05/17 Acetaminophen [Tylenol .Regular Strength -] 650 mg PO Q6H PRN tablet 04/15/17 Amino Acids/Protein Hydrolys [Prosource No Carb Liquid Pkt] 30 ml PO BID@0800, 1730 packet 04/15/17 Ascorbic Acid [Vitamin C -] 250 mg PO DAILY tablet 04/15/17 Multivitamins [Multivit ([facility] Formulary)] 1 tab PO DAILY tab 04/15/17 Pantoprazole Sodium [Protonix -] 40 mg PO DAILY tablet.ec 04/15/17 Rosuvastatin [Crestor -] 20 mg PO HS tablet 04/15/17 Tamsulosin HCl [Flomax -] 0.4 mg PO DAILY@0830 cap.er.24h 04/15/17 Febuxostat [Uloric] 40 mg PO DAILY 06/18/17 Memantine HCl [Namenda -] 5 mg PO BID 06/18/17 Mirabegron [Myrbetriq] 25 mg PO DAILY 06/18/17 Nebivolol HCl [Bystolic] 10 mg PO DAILY 06/18/17 Albuterol 0.083% Nebulizer Connie [Ventolin 0.083% Nebulizer Soln -] 1 amp NEB Q6H PRN amp 06/22/17 Amoxicillin - [Amoxicillin 500mg Capsule -] 500 mg PO TID #21 capsule 06/22/17 Nystatin/Triamcinolone Top Cr [Mycolog II -] 1 applic TP BID #90 applic Olanzapine [Zyprexa -] 5 mg PO HS tablet 06/22/17 clonazePAM [Klonopin -] 0.5 mg PO DAILY tablet MDD 1/2 TAB 06/22/17 Review of Systems - Review of Systems Constitutional: reports: Lethargy HENT: reports: No Symptoms Neck: reports: No Symptoms Cardiovascular: reports: Shortness of Breath Respiratory: reports: Exercise Intolerance, SOB on Exertion Gastrointestinal: reports: Bloating Genitourinary: reports: Frequency Musculoskeletal: reports: Back Pain Integumentary: reports: Eczema Neurological: reports: Incoordination, Numbness, Weakness Endocrine: reports: No Symptoms, Increased Hunger Physical Exam Vital Signs: Vital Signs Temperature 98 F 09/15/17 06:26 Pulse Rate 49 L 09/15/17 07:49 Respiratory Rate 18 09/15/17 09:00 Blood Pressure 163/70 09/15/17 07:49 O2 Sat by Pulse Oximetry (%) 97 09/15/17 09:00 Constitutional: Yes: Anxious Eyes: Yes: EOM Intact HENT: Yes: Normocephalic Neck: Yes: Trachea Midline Cardiovascular: Yes: Regular Rate and Rhythm Respiratory: Yes: CTA Bilaterally Gastrointestinal: Yes: Normal Bowel Sounds ...Rectal Exam: Yes: Deferred Renal/: Yes: WNL Breast(s): Yes: WNL Musculoskeletal: Yes: Back Pain, Muscle Weakness Extremities: Yes: WNL Edema: No Neurological: Yes: Alert, Oriented Labs: CBC, BMP 09/15/17 06:00 09/15/17 06:00 Problem List - Problems (1) GARRISON (acute kidney injury) Code(s): N17.9 - ACUTE KIDNEY FAILURE, UNSPECIFIED (2) Altered mental status Code(s): R41.82 - ALTERED MENTAL STATUS, UNSPECIFIED (3) Diabetes Code(s): E11.9 - TYPE 2 DIABETES MELLITUS WITHOUT COMPLICATIONS (4) Hyperkalemia Code(s): E87.5 - HYPERKALEMIA (5) Subdural hygroma Code(s): D18.1 - LYMPHANGIOMA, ANY SITE (6) Back pain Code(s): M54.9 - DORSALGIA, UNSPECIFIED (7) Acute metabolic encephalopathy Code(s): G93.41 - METABOLIC ENCEPHALOPATHY Assessment/Plan Current Active Problems GARRISON (acute kidney injury) (Acute) Altered mental status (Acute) Diabetes (Acute) Hyperkalemia (Acute) Subdural hygroma (Acute) Abnormal Lab Results 09/14/17 09/14/17 09/15/17 21:00 21:00 01:00 MCV MCH MCHC Potassium 5.6 H Chloride 112 H Anion Gap 6 L BUN 58 H Creatinine 2.6 H Calcium 8.3 L Urine Protein 2+ H 09/15/17 09/15/17 06:00 06:00 MCV 79.7 L MCH 25.4 L MCHC 31.8 L Potassium Chloride 109 H Anion Gap BUN 56 H Creatinine 2.3 H Calcium Urine Protein Laboratory Results - last 24 hr 09/14/17 09/14/17 09/15/17 21:00 21:00 01:00 WBC RBC Hgb Hct MCV MCH MCHC RDW Plt Count MPV Sodium 142 Potassium 5.1 Chloride 112 H Carbon Dioxide 24 Anion Gap 6 L BUN 58 H Creatinine 2.6 H Creat Clearance w eGFR 23.63 Random Glucose 90 Lactic Acid 0.7 Calcium 8.3 L Magnesium Total Bilirubin 0.2 AST 16 ALT 23 Alkaline Phosphatase 61 Total Protein 6.4 Albumin 3.7 Urine Color Ltyellow Urine Appearance Clear Urine pH 5.0 Ur Specific [place] 1.014 Urine Protein 2+ H Urine Glucose (UA) Negative Urine Ketones Negative Urine Blood Negative Urine Nitrite Negative Urine Bilirubin Negative Urine Urobilinogen Negative Ur Leukocyte Esterase Trace Urine WBC (Auto) 9 Urine RBC (Auto) 1 Ur Epithelial Cells Rare Hyaline Casts 1 09/15/17 09/15/17 09/15/17 01:00 06:00 06:00 WBC 8.8 RBC 4.96 Hgb 12.6 Hct 39.5 MCV 79.7 L MCH 25.4 L MCHC 31.8 L RDW 15.5 Plt Count 153 MPV 10.1 Sodium 140 Potassium 5.6 H 5.1 Chloride 109 H Carbon Dioxide 23 Anion Gap 8 BUN 56 H Creatinine 2.3 H Creat Clearance w eGFR 27.23 Random Glucose 93 Lactic Acid Calcium 8.7 Magnesium 1.9 Total Bilirubin 0.3 AST 25 D ALT 30 D Alkaline Phosphatase 68 Total Protein 7.1 Albumin 3.9 Urine Color Urine Appearance Urine pH Ur Specific [place] Urine Protein Urine Glucose (UA) Urine Ketones Urine Blood Urine Nitrite Urine Bilirubin Urine Urobilinogen Ur Leukocyte Esterase Urine WBC (Auto) Urine RBC (Auto) Ur Epithelial Cells Hyaline Casts plan:\ check am cortisol am acth\ hba1c\ bgm bid ac\
[2017-09-15] MEDS ORDERED: ACETAMINOPHEN 325 MG TABLET (FP) PO PRN (18:01)
[2017-09-15] MEDS: ROSUVASTATIN CA 10 MG TABLET (FP) PO SCH (21:41)
[2017-09-15] MEDS: OLANZapine 10 MG TABLET PO SCH (21:41)
[2017-09-16 08:17] LABS: ALBUMIN 3.5 g/dl (3.4-5.0); ANION GAP 6 (8-16); BLOOD UREA NITROGEN 53 mg/dL (7-18); CALCIUM 8.5 mg/dL (8.5-10.1); CHLORIDE 111 mmol/L (98-107); CO2 24 mmol/L (21-32); CREATININE 2.3 mg/dL (0.7-1.3); GLUCOSE,RANDOM 79 mg/dL (74-106); POTASSIUM 5.3 mmol/L (3.5-5.1); SGOT/AST 19 U/L (15-37); SGPT/ALT 24 U/L (12-78); SODIUM 141 mmol/L (136-145)
[2017-09-16 08:19] LABS: ALK PHOS 67 U/L (45-117); BILIRUBIN,TOTAL 0.3 mg/dL (0.2-1.0); TOT PROT 6.4 g/dl (6.4-8.2)
[2017-09-16] MEDS ORDERED: PT OWN MED DRAWER 7, Y5N ONE (09:45)
[2017-09-16] MEDS: ESCITALOPRAM OXALATE 10 MG TABLET (FP) PO SCH (09:46)
[2017-09-16] MEDS: TAMSULOSIN HCL 0.4 MG CAP.ER.24H (FP) PO SCH (09:46)
[2017-09-16] MEDS: FEBUXOSTAT 40 MG TAB PO SCH (09:46)
[2017-09-16] MEDS: DONEPEZIL HCL 10 MG TABLET (FP) PO SCH (09:46)
[2017-09-16] MEDS: ASCORBIC ACID 250 MG TABLET (FP) PO SCH (09:46)
[2017-09-16] MEDS: AMINO ACIDS/PROTEIN HYDROLYS 30 ML LIQUID.PKT PO SCH ×2 (09:46→17:45)
[2017-09-16] MEDS: MEMANTINE HCL 5 MG TABLET (UD) PO SCH ×2 (09:46→21:13)
[2017-09-16] MEDS: PANTOPRAZOLE 40 MG TABLET (FP) PO SCH (09:46)
[2017-09-16] MEDS: NEBIVOLOL 10 MG TABLET (FP) PO SCH (09:46)
[2017-09-16] MEDS: hydrALAZINE HCL 10 MG TABLET PO SCH ×2 (09:46→21:13)
--- NOTE | 2017-09-16 11:39 | PN ---
Progress Note, Physician - Current Medication List Current Medications: Active Medications Acetaminophen (Tylenol -) 650 mg PO Q6H PRN PRN Reason: PAIN LEVEL 1-5 Last Admin: 09/15/17 18:23 Dose: 650 mg Amino Acids (Prosource No Carb Liquid Pkt) 30 ml PO BID@0800,1730 [facility] Last Admin: 09/16/17 09:46 Dose: 30 ml Ascorbic Acid (Vitamin C -) 250 mg PO DAILY [facility] Last Admin: 09/16/17 09:46 Dose: 250 mg Donepezil HCl (Aricept -) 10 mg PO DAILY [facility] Last Admin: 09/16/17 09:46 Dose: 10 mg Escitalopram Oxalate (Lexapro -) 10 mg PO DAILY [facility] Last Admin: 09/16/17 09:46 Dose: 10 mg Febuxostat (Uloric -) 40 mg PO DAILY [facility] Last Admin: 09/16/17 09:46 Dose: 40 mg Hydralazine HCl (Apresoline -) 10 mg PO BID [facility] Last Admin: 09/16/17 09:46 Dose: 10 mg Sodium Chloride (1/2 Normal Saline) 1,000 mls @ 50 mls/hr IV ASDIR [facility] Stop: 09/16/17 15:38 Last Admin: 09/15/17 17:09 Dose: 50 mls/hr Memantine (Namenda -) 5 mg PO BID [facility] Last Admin: 09/16/17 09:46 Dose: 5 mg Nebivolol (Bystolic -) 10 mg PO DAILY [facility] Last Admin: 09/16/17 09:46 Dose: 10 mg Olanzapine (Zyprexa -) 5 mg PO HS [facility] Last Admin: 09/15/17 21:41 Dose: 5 mg Pantoprazole Sodium (Protonix -) 40 mg PO DAILY [facility] Last Admin: 09/16/17 09:46 Dose: 40 mg Rosuvastatin Calcium (Crestor -) 10 mg PO HS [facility] Last Admin: 09/15/17 21:41 Dose: 10 mg Tamsulosin HCl (Flomax -) 0.4 mg PO DAILY@0830 [facility] Last Admin: 09/16/17 09:46 Dose: 0.4 mg - Objective Vital Signs: Vital Signs Temperature 98.1 F 09/16/17 06:00 Pulse Rate 54 L 09/16/17 06:00 Respiratory Rate 20 09/16/17 06:00 Blood Pressure 154/53 09/16/17 06:00 O2 Sat by Pulse Oximetry (%) 95 09/15/17 21:00 Cardiovascular: Yes: S1, S2 Respiratory: Yes: Regular, CTA Bilaterally Gastrointestinal: Yes: Normal Bowel Sounds, Soft. No: Tenderness Labs: CBC, BMP 09/15/17 06:00 09/16/17 06:00 INR, PTT INR 0.88 (0.82-1.09) 09/14/17 12:48 Problem List - Problems (1) Altered mental status Assessment/Plan: Neuro/ID: Acute encephalopathy of unclear etiology CT scan shows interval collateral subdural hypodense collection/hygromas measures 8.5mm in width on the left and a 13mm in width on the right for which follow up CT scan is needed. Neurosurgery consulted (Dr. Smith) neuro checks q 4, monitor mental status. Rule out acute infection, blood and urine cultures pending Follow up Head CT recommended per neuro ID consulted for further recommendations C Code(s): R41.82 - ALTERED MENTAL STATUS, UNSPECIFIED (2) Subdural hygroma Assessment/Plan: - ABOVE -NS -CT Code(s): D18.1 - LYMPHANGIOMA, ANY SITE (3) CKD (chronic kidney disease) Assessment/Plan: GARRISON, acute on chronic Creat elevated 2.6, insert duque Bladder/kidney ultrasound ordered Monitor intake and output Renal consulted Code(s): N18.9 - CHRONIC KIDNEY DISEASE, UNSPECIFIED (4) NPH (normal pressure hydrocephalus) Assessment/Plan: -S/P SHUNT Code(s): G91.2 - (IDIOPATHIC) NORMAL PRESSURE HYDROCEPHALUS (5) Hyperkalemia Assessment/Plan: Hyperkalemia @6.1, resolved Given d50, Novolog protocol, repeat labs show stable K No EKG changes noted Code(s): E87.5 - HYPERKALEMIA (6) Diabetes Assessment/Plan: -BGM ENDO Code(s): E11.9 - TYPE 2 DIABETES MELLITUS WITHOUT COMPLICATIONS (7) Hydronephrosis Assessment/Plan: -urology Code(s): N13.30 - UNSPECIFIED HYDRONEPHROSIS
--- NOTE | 2017-09-16 14:16 | CONSULT ---
Consult - text type - Consultation Consultation Note: Neurology CHIEF COMPLAINT: lethargy, ams, increase sleep HISTORY OF PRESENT ILLNESS: 86 year old male with a significant past medical history of normal pressure hydrocephalus s/p DEPUTY CHIEF EXECUTIVE shunt with Dr. Fajardo on 04/13/17, prostate cancer, CAD, and hypertension. Patient presents to the ED for lethargy and altered mental status. Patient family reports that after the DEPUTY CHIEF EXECUTIVE shunt was placed, patient was doing well and was ambulating without assistance, however, a few days ago, patient was noted to be sleeping more, was much weaker and became aggressive with his . He was also requiring assistance with ambulation in the past few weeks. Patient son brought him in for further evaluation. Head ct compelted and showed interval collateral subdural hypodense collection/hygromas measures 8.5mm in width on the left and a 13mm in width on the right for which follow up CT scan was done and stable subdural collection. His ventricles are decreased in size from 21 to 12mm. Patient himself is awake, alert, no focal deficits, interactive, could tell me name, place, name of President. Met with as well, answered questions, provided reassurance. PAST MEDICAL HISTORY: As above PAST SURGICAL HISTORY: above Allergies No Known Allergies Allergy (Verified 09/14/17 12:21) HOME MEDICATIONS: Home Medications Medication Instructions Recorded Aspirin [ASA -] 81 mg PO DAILY 04/05/17 Donepezil HCl [Aricept -] 10 mg PO DAILY 04/05/17 Escitalopram Oxalate [Lexapro -] 10 mg PO DAILY 04/05/17 hydrALAZINE HCL [Apresoline -] 10 mg PO BID 04/05/17 Acetaminophen [Tylenol .Regular 650 mg PO Q6H PRN tablet 04/15/17 Strength -] Amino Acids/Protein Hydrolys 30 ml PO BID@0800,1730 packet 04/15/17 [Prosource No Carb Liquid Pkt] Ascorbic Acid [Vitamin C -] 250 mg PO DAILY tablet 04/15/17 Multivitamins [Multivit ([facility] 1 tab PO DAILY tab 04/15/17 Formulary)] Pantoprazole Sodium [Protonix -] 40 mg PO DAILY tablet.ec 04/15/17 Rosuvastatin [Crestor -] 20 mg PO HS tablet 04/15/17 Tamsulosin HCl [Flomax -] 0.4 mg PO DAILY@0830 cap.er.24h 04/15/17 Febuxostat [Uloric] 40 mg PO DAILY 06/18/17 Memantine HCl [Namenda -] 5 mg PO BID 06/18/17 Mirabegron [Myrbetriq] 25 mg PO DAILY 06/18/17 Nebivolol HCl [Bystolic] 10 mg PO DAILY 06/18/17 Albuterol 0.083% Nebulizer Connie 1 amp NEB Q6H PRN amp 06/22/17 [Ventolin 0.083% Nebulizer Soln -] Amoxicillin - [Amoxicillin 500mg 500 mg PO TID #21 capsule 06/22/17 Capsule -] Nystatin/Triamcinolone Top Cr 1 applic TP BID #90 applic 06/22/17 [Mycolog II -] Olanzapine [Zyprexa -] 5 mg PO HS tablet 06/22/17 clonazePAM [Klonopin -] 0.5 mg PO DAILY tablet MDD 1/2 TAB 06/22/17 Vital Signs Period Temp Pulse Resp BP Sys/Handy Pulse Ox Last 24 Hr 97.7 F-98.4 F 52-56 18-20 133-174/53-78 95 GENERAL: Awake, alert, and fully oriented, in no acute distress. HEAD: Normal with no signs of trauma. EYES: Pupils equal, round and reactive to light, extraocular movements intact, sclera anicteric, conjunctiva clear. No lid lag. EARS, NOSE, THROAT: Ears normal, nares patent, oropharynx clear without exudates. Moist mucous membranes. NECK: Normal range of motion, supple without lymphadenopathy, JVD, or masses. LUNGS: Breath sounds equal, clear to auscultation bilaterally. No wheezes, and no crackles. No accessory muscle use. HEART: Regular rate and rhythm, normal S1 and S2 without murmur, rub or gallop. ABDOMEN: Soft, nontender, not distended, normoactive bowel sounds, no guarding MUSCULOSKELETAL: Normal range of motion at all joints. No bony deformities or tenderness. No CVA tenderness. UPPER EXTREMITIES: No clubbing. No peripheral edema. LOWER EXTREMITIES: No calf tenderness. No peripheral edema. NEUROLOGICAL: Normal speech. CN intact, strenght equal, sensory intact, no abnormal movements, gait deferred PSYCHIATRIC: Cooperative. Good eye contact. Appropriate mood and affect. SKIN: Warm, dry, normal turgor, no rashes or lesions noted, normal capillary refill. Laboratory Results - last 24 hr 09/14/17 09/14/17 09/14/17 12:48 12:48 12:48 WBC 7.6 RBC 4.88 Hgb 12.3 Hct 38.6 MCV 79.1 L MCH 25.2 L MCHC 31.9 L RDW 14.8 Plt Count 174 MPV 9.7 D Absolute Neuts (auto) 4.5 Neutrophils % 59.4 Lymphocytes % 28.9 Monocytes % 8.1 Eosinophils % 2.9 Basophils % 0.7 Nucleated RBC % 0 PT with INR 10.00 INR 0.88 PTT (Actin FS) 26.4 Sodium 138 Potassium 6.1 H* D Chloride 109 H Carbon Dioxide 23 Anion Gap 6 L BUN 60 H D Creatinine 2.6 H D Creat Clearance w eGFR 23.63 Random Glucose 87 Calcium 8.4 L Total Bilirubin 0.2 D AST 20 ALT 28 Alkaline Phosphatase 67 D Creatine Kinase 117 Troponin I < 0.02 D Total Protein 7.0 Albumin 3.9 09/14/17 14:00 WBC RBC Hgb Hct MCV MCH MCHC RDW Plt Count MPV Absolute Neuts (auto) Neutrophils % Lymphocytes % Monocytes % Eosinophils % Basophils % Nucleated RBC % PT with INR INR PTT (Actin FS) Sodium Potassium Chloride Carbon Dioxide Anion Gap BUN Creatinine Creat Clearance w eGFR Random Glucose Calcium Total Bilirubin AST ALT Alkaline Phosphatase Creatine Kinase Cancelled Troponin I Cancelled Total Protein Albumin Imaging CT head reviewed, X2 ASSESSMENT/PLAN: 86 year old male with a significant past medical history of normal pressure hydrocephalus s/p DEPUTY CHIEF EXECUTIVE shunt with Dr. Fajardo on 04/13/17, prostate cancer, CAD, and hypertension. Patient presents to the ED for lethargy and altered mental status. Patient family reports that after the DEPUTY CHIEF EXECUTIVE shunt was placed, patient was doing well and was ambulating without assistance, however, a few days ago, patient was noted to be sleeping more, was much weaker and became aggressive with his . He was also requiring assistance with ambulation in the past few weeks. Patient son brought him in for further evaluation. Head ct compelted and showed interval collateral subdural hypodense collection/hygromas measures 8.5mm in width on the left and a 13mm in width on the right for which follow up CT scan was done and stable subdural collection. His ventricles are decreased in size from 21 to 12mm. Patient himself is awake, alert, no focal deficits, interactive, could tell me name, place, name of President. Met with as well, answered questions, provided reassurance. Monitor BP, maintain normotensive range. Advised fall precautions and avoid any head trauma. Monitor hypokalemia, maintain normal range of K. Neurologically stable, ok for discharge , follow up with [facility]GY as outpatient.
[2017-09-16] MEDS ORDERED: SODIUM POLYSTYRENE SULFONATE 15 GM/60 ML BOTTLE PO ONE (15:00)
--- NOTE | 2017-09-16 15:58 | PN ---
Progress Note, Physician History of Present Illness: Pt seen and examined at bedside. He is more awake and alert today. He denies shortness of breath or palpitations. - Current Medication List Current Medications: Active Medications Acetaminophen (Tylenol -) 650 mg PO Q6H PRN PRN Reason: PAIN LEVEL 1-5 Last Admin: 09/15/17 18:23 Dose: 650 mg Amino Acids (Prosource No Carb Liquid Pkt) 30 ml PO BID@0800,1730 [facility] Last Admin: 09/16/17 09:46 Dose: 30 ml Ascorbic Acid (Vitamin C -) 250 mg PO DAILY [facility] Last Admin: 09/16/17 09:46 Dose: 250 mg Donepezil HCl (Aricept -) 10 mg PO DAILY [facility] Last Admin: 09/16/17 09:46 Dose: 10 mg Escitalopram Oxalate (Lexapro -) 10 mg PO DAILY [facility] Last Admin: 09/16/17 09:46 Dose: 10 mg Febuxostat (Uloric -) 40 mg PO DAILY [facility] Last Admin: 09/16/17 09:46 Dose: 40 mg Hydralazine HCl (Apresoline -) 10 mg PO BID [facility] Last Admin: 09/16/17 09:46 Dose: 10 mg Memantine (Namenda -) 5 mg PO BID [facility] Last Admin: 09/16/17 09:46 Dose: 5 mg Nebivolol (Bystolic -) 10 mg PO DAILY [facility] Last Admin: 09/16/17 09:46 Dose: 10 mg Olanzapine (Zyprexa -) 5 mg PO HS [facility] Last Admin: 09/15/17 21:41 Dose: 5 mg Pantoprazole Sodium (Protonix -) 40 mg PO DAILY [facility] Last Admin: 09/16/17 09:46 Dose: 40 mg Rosuvastatin Calcium (Crestor -) 10 mg PO HS [facility] Last Admin: 09/15/17 21:41 Dose: 10 mg Tamsulosin HCl (Flomax -) 0.4 mg PO DAILY@0830 [facility] Last Admin: 09/16/17 09:46 Dose: 0.4 mg - Objective Vital Signs: Vital Signs Temperature 98.1 F 09/16/17 06:00 Pulse Rate 54 L 09/16/17 06:00 Respiratory Rate 20 09/16/17 06:00 Blood Pressure 154/53 09/16/17 06:00 O2 Sat by Pulse Oximetry (%) 95 09/15/17 21:00 Constitutional: Yes: Calm Eyes: Yes: Conjunctiva Clear HENT: Yes: Atraumatic Cardiovascular: Yes: S1, S2 Respiratory: Yes: CTA Bilaterally Gastrointestinal: Yes: Soft, Abdomen, Obese Genitourinary: Yes: WNL Musculoskeletal: Yes: WNL Edema: No Neurological: Yes: Oriented, Pre-Existing Deficit Labs: CBC, BMP 09/15/17 06:00 09/16/17 06:00 INR, PTT INR 0.88 (0.82-1.09) 09/14/17 12:48 Problem List - Problems (1) GARRISON (acute kidney injury) Code(s): N17.9 - ACUTE KIDNEY FAILURE, UNSPECIFIED (2) Altered mental status Code(s): R41.82 - ALTERED MENTAL STATUS, UNSPECIFIED (3) Diabetes Code(s): E11.9 - TYPE 2 DIABETES MELLITUS WITHOUT COMPLICATIONS (4) Hyperkalemia Code(s): E87.5 - HYPERKALEMIA (5) Subdural hygroma Code(s): D18.1 - LYMPHANGIOMA, ANY SITE (6) CKD (chronic kidney disease) Code(s): N18.9 - CHRONIC KIDNEY DISEASE, UNSPECIFIED (7) NPH (normal pressure hydrocephalus) Code(s): G91.2 - (IDIOPATHIC) NORMAL PRESSURE HYDROCEPHALUS (8) Renal insufficiency Code(s): N28.9 - DISORDER OF KIDNEY AND URETER, UNSPECIFIED (9) Weakness Code(s): R53.1 - WEAKNESS Assessment/Plan Current Medications Generic Name Dose Route Start Last Admin Trade Name Marla PRN Reason Stop Dose Admin Acetaminophen 650 mg 09/15/17 18:01 09/15/17 18:23 Tylenol - PO 650 mg Q6H PRN Administration PAIN LEVEL 1-5 Amino Acids 30 ml 09/15/17 08:00 09/16/17 09:46 Prosource No Carb Liquid Pkt PO 30 ml BID@0800,1730 [facility] Administration Ascorbic Acid 250 mg 09/15/17 10:00 09/16/17 09:46 Vitamin C - PO 250 mg DAILY [facility] Administration Donepezil HCl 10 mg 09/15/17 10:00 09/16/17 09:46 Aricept - PO 10 mg DAILY [facility] Administration Escitalopram Oxalate 10 mg 09/15/17 10:00 09/16/17 09:46 Lexapro - PO 10 mg DAILY [facility] Administration Febuxostat 40 mg 09/15/17 10:00 09/16/17 09:46 Uloric - PO 40 mg DAILY [facility] Administration Hydralazine HCl 10 mg 09/15/17 10:00 09/16/17 09:46 Apresoline - PO 10 mg BID [facility] Administration Memantine 5 mg 09/15/17 10:00 09/16/17 09:46 Namenda - PO 5 mg BID [facility] Administration Nebivolol 10 mg 09/15/17 10:00 09/16/17 09:46 Bystolic - PO 10 mg DAILY [facility] Administration Olanzapine 5 mg 09/15/17 22:00 09/15/17 21:41 Zyprexa - PO 5 mg HS [facility] Administration Pantoprazole Sodium 40 mg 09/15/17 10:00 09/16/17 09:46 Protonix - PO 40 mg DAILY [facility] Administration Rosuvastatin Calcium 10 mg 09/15/17 22:00 09/15/17 21:41 Crestor - PO 10 mg HS [facility] Administration Tamsulosin HCl 0.4 mg 09/15/17 08:30 09/16/17 09:46 Flomax - PO 0.4 mg DAILY@0830 [facility] Administration Impression 1. CKD 2. PKD 3. change in mental status 4. HTN 5. weakness 6. Hyperkalemia 7. prostate cancer 8. dementia 9. hyperlipidemia 10. GARRISON 11. 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
[2017-09-16] MEDS ORDERED: SODIUM CHLORIDE 0.45% 1,000 ML IV SCH (16:00)
[2017-09-16] MEDS: OLANZapine 10 MG TABLET PO SCH (21:13)
[2017-09-16] MEDS: ROSUVASTATIN CA 10 MG TABLET (FP) PO SCH (21:13)
[2017-09-17 07:32] LABS: ANION GAP 4 (8-16); BLOOD UREA NITROGEN 51 mg/dL (7-18); CALCIUM 8.4 mg/dL (8.5-10.1); CHLORIDE 112 mmol/L (98-107); CO2 26 mmol/L (21-32); CREATININE 2.1 mg/dL (0.7-1.3); GLUCOSE,RANDOM 82 mg/dL (74-106); SODIUM 142 mmol/L (136-145)
[2017-09-17] MEDS ORDERED: PT OWN MED DRAWER 7, Y5N ONE (09:24)
[2017-09-17] MEDS: hydrALAZINE HCL 10 MG TABLET PO SCH (09:27)
[2017-09-17] MEDS: AMINO ACIDS/PROTEIN HYDROLYS 30 ML LIQUID.PKT PO SCH (09:27)
[2017-09-17] MEDS: TAMSULOSIN HCL 0.4 MG CAP.ER.24H (FP) PO SCH (09:27)
[2017-09-17] MEDS: PANTOPRAZOLE 40 MG TABLET (FP) PO SCH (09:27)
[2017-09-17] MEDS: MEMANTINE HCL 5 MG TABLET (UD) PO SCH (09:27)
[2017-09-17] MEDS: DONEPEZIL HCL 10 MG TABLET (FP) PO SCH (09:29)
[2017-09-17] MEDS: ESCITALOPRAM OXALATE 10 MG TABLET (FP) PO SCH (09:29)
[2017-09-17] MEDS: FEBUXOSTAT 40 MG TAB PO SCH (09:29)
[2017-09-17] MEDS: ASCORBIC ACID 250 MG TABLET (FP) PO SCH (09:29)
[2017-09-17 12:41] VITALS: BMI 31.1
[2017-09-17] MEDS: NEBIVOLOL 10 MG TABLET (FP) PO SCH (12:54)
--- NOTE | 2017-09-17 13:02 | PN ---
Progress Note, Physician - Current Medication List Current Medications: Active Medications Acetaminophen (Tylenol -) 650 mg PO Q6H PRN PRN Reason: PAIN LEVEL 1-5 Last Admin: 09/15/17 18:23 Dose: 650 mg Ascorbic Acid (Vitamin C -) 250 mg PO DAILY [facility] Last Admin: 09/17/17 09:29 Dose: 250 mg Donepezil HCl (Aricept -) 10 mg PO DAILY [facility] Last Admin: 09/17/17 09:29 Dose: 10 mg Escitalopram Oxalate (Lexapro -) 10 mg PO DAILY [facility] Last Admin: 09/17/17 09:29 Dose: 10 mg Febuxostat (Uloric -) 40 mg PO DAILY [facility] Last Admin: 09/17/17 09:29 Dose: 40 mg Hydralazine HCl (Apresoline -) 10 mg PO BID [facility] Last Admin: 09/17/17 09:27 Dose: 10 mg Sodium Chloride (1/2 Normal Saline) 1,000 mls @ 50 mls/hr IV ASDIR [facility] Stop: 09/17/17 15:58 Last Admin: 09/16/17 17:44 Dose: 50 mls/hr Memantine (Namenda -) 5 mg PO BID [facility] Last Admin: 09/17/17 09:27 Dose: 5 mg Nebivolol (Bystolic -) 10 mg PO DAILY [facility] Last Admin: 09/17/17 12:54 Dose: Not Given Olanzapine (Zyprexa -) 5 mg PO [facility] Last Admin: 09/16/17 21:13 Dose: 5 mg Pantoprazole Sodium (Protonix -) 40 mg PO DAILY [facility] Last Admin: 09/17/17 09:27 Dose: 40 mg Rosuvastatin Calcium (Crestor -) 10 mg PO [facility] Last Admin: 09/16/17 21:13 Dose: 10 mg Tamsulosin HCl (Flomax -) 0.4 mg PO DAILY@0830 [facility] Last Admin: 09/17/17 09:27 Dose: 0.4 mg - Objective Vital Signs: Vital Signs Temperature 97.5 F L 09/17/17 05:38 Pulse Rate 50 L 09/17/17 05:38 Respiratory Rate 18 09/17/17 05:38 Blood Pressure 169/66 09/17/17 05:38 O2 Sat by Pulse Oximetry (%) 95 09/16/17 21:00 Constitutional: Yes: Well Nourished, No Distress Labs: CBC, BMP 09/15/17 06:00 09/17/17 06:00 INR, PTT INR 0.88 (0.82-1.09) 09/14/17 12:48
[2017-09-17 13:24] VITALS: BP 165/60; PULSE 50; TEMP 98.3
[2017-09-17] MEDS ORDERED: NEBIVOLOL 5 MG TABLET (FP) PO SCH (13:32)
--- NOTE | 2017-09-17 13:45 | PN ---
Progress Note, Physician Chief Complaint: AMS Normal pressure hydrocephalus GARRISON History of Present Illness: NAD in bed BP elevated Bystolic on hold due to bradycardia - Current Medication List Current Medications: Active Medications Acetaminophen (Tylenol -) 650 mg PO Q6H PRN PRN Reason: PAIN LEVEL 1-5 Last Admin: 09/15/17 18:23 Dose: 650 mg Ascorbic Acid (Vitamin C -) 250 mg PO DAILY [facility] Last Admin: 09/17/17 09:29 Dose: 250 mg Donepezil HCl (Aricept -) 10 mg PO DAILY [facility] Last Admin: 09/17/17 09:29 Dose: 10 mg Escitalopram Oxalate (Lexapro -) 10 mg PO DAILY [facility] Last Admin: 09/17/17 09:29 Dose: 10 mg Febuxostat (Uloric -) 40 mg PO DAILY [facility] Last Admin: 09/17/17 09:29 Dose: 40 mg Hydralazine HCl (Apresoline -) 10 mg PO TID [facility] Sodium Chloride (1/2 Normal Saline) 1,000 mls @ 50 mls/hr IV ASDIR [facility] Stop: 09/17/17 15:58 Last Admin: 09/16/17 17:44 Dose: 50 mls/hr Memantine (Namenda -) 5 mg PO BID [facility] Last Admin: 09/17/17 09:27 Dose: 5 mg Nebivolol (Bystolic -) 10 mg PO DAILY [facility] Last Admin: 09/17/17 12:54 Dose: Not Given Olanzapine (Zyprexa -) 5 mg PO HS [facility] Last Admin: 09/16/17 21:13 Dose: 5 mg Pantoprazole Sodium (Protonix -) 40 mg PO DAILY [facility] Last Admin: 09/17/17 09:27 Dose: 40 mg Rosuvastatin Calcium (Crestor -) 10 mg PO HS [facility] Last Admin: 09/16/17 21:13 Dose: 10 mg Tamsulosin HCl (Flomax -) 0.4 mg PO DAILY@0830 [facility] Last Admin: 09/17/17 09:27 Dose: 0.4 mg - Objective Vital Signs: Vital Signs Temperature 98.3 F 09/17/17 13:23 Pulse Rate 50 L 09/17/17 13:23 Respiratory Rate 18 09/17/17 13:23 Blood Pressure 165/60 09/17/17 13:23 O2 Sat by Pulse Oximetry (%) 95 09/17/17 09:00 Constitutional: Yes: Well Nourished, No Distress, Calm Cardiovascular: Yes: Regular Rate and Rhythm Respiratory: Yes: Regular Gastrointestinal: Yes: Normal Bowel Sounds, Soft Musculoskeletal: Yes: WNL Extremities: Yes: WNL Edema: Yes Peripheral Pulses WNL: Yes Neurological: Yes: Alert, Oriented Psychiatric: Yes: Alert, Oriented Labs: CBC, BMP 09/15/17 06:00 09/17/17 06:00 INR, PTT INR 0.88 (0.82-1.09) 09/14/17 12:48
[2017-09-17] MEDS ORDERED: hydrALAZINE HCL 10 MG TABLET PO SCH (14:00)
--- NOTE | 2017-09-17 14:26 | CON.GU ---
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 Patient also has a history of CAP/bph s/p RT. Patient is admitted with worsening of mental status and hyperkalemia. Patient is voiding and does suffer from situational incontinence due to difficulty ambulating. 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, Other (hydrocephalus) Cardio/Vascular: Yes: CAD, HTN, Hyperlipdemia Renal/: Yes: Renal Inusuff, UTI, Other (PKD) Rheumatology: Yes: Gout - Past Surgical History Additional Surgical History: [employer] shunt - Alcohol/Substance Use Hx Alcohol Use: No - Smoking History Smoking history: Never smoked Have you smoked in the past 12 months: No If you are a former smoker, when did you quit?: 1967 - Social History Usual Living Arrangement: With Spouse Home Medications - Allergies Allergies/Adverse Reactions: Allergies Allergy/AdvReac Type Severity Reaction Status Date / Time No Known Allergies Allergy Verified 09/14/17 12:21 - Home Medications Home Medications: Ambulatory Orders Aspirin [ASA -] 81 mg PO DAILY 04/05/17 Donepezil HCl [Aricept -] 10 mg PO DAILY 04/05/17 Escitalopram Oxalate [Lexapro -] 10 mg PO DAILY 04/05/17 hydrALAZINE HCL [Apresoline -] 10 mg PO BID 04/05/17 Acetaminophen [Tylenol .Regular Strength -] 650 mg PO Q6H PRN tablet 04/15/17 Amino Acids/Protein Hydrolys [Prosource No Carb Liquid Pkt] 30 ml PO BID@0800, 1730 packet 04/15/17 Ascorbic Acid [Vitamin C -] 250 mg PO DAILY tablet 04/15/17 Multivitamins [Multivit ([facility] Formulary)] 1 tab PO DAILY tab 04/15/17 Pantoprazole Sodium [Protonix -] 40 mg PO DAILY tablet.ec 04/15/17 Rosuvastatin [Crestor -] 20 mg PO HS tablet 04/15/17 Tamsulosin HCl [Flomax -] 0.4 mg PO DAILY@0830 cap.er.24h 04/15/17 Febuxostat [Uloric] 40 mg PO DAILY 06/18/17 Memantine HCl [Namenda -] 5 mg PO BID 06/18/17 Mirabegron [Myrbetriq] 25 mg PO DAILY 06/18/17 Nebivolol HCl [Bystolic] 10 mg PO DAILY 06/18/17 Albuterol 0.083% Nebulizer Connie [Ventolin 0.083% Nebulizer Soln -] 1 amp NEB Q6H PRN amp 06/22/17 Amoxicillin - [Amoxicillin 500mg Capsule -] 500 mg PO TID #21 capsule 06/22/17 Nystatin/Triamcinolone Top Cr [Mycolog II -] 1 applic TP BID #90 applic Olanzapine [Zyprexa -] 5 mg PO HS tablet 06/22/17 clonazePAM [Klonopin -] 0.5 mg PO DAILY tablet MDD 1/2 TAB 06/22/17 Physical Exam- Vital Signs: Vital Signs Temperature 98.3 F 09/17/17 13:23 Pulse Rate 50 L 09/17/17 13:23 Respiratory Rate 18 09/17/17 13:23 Blood Pressure 165/60 09/17/17 13:23 O2 Sat by Pulse Oximetry (%) 95 09/17/17 09:00 Constitutional: Yes: Well Nourished, No Distress, Calm Eyes: Yes: WNL, Conjunctiva Clear HENT: Yes: WNL, Atraumatic, Normocephalic Neck: Yes: WNL, Supple, Trachea Midline Cardiovascular: Yes: WNL, Regular Rate and Rhythm Respiratory: Yes: WNL, Regular, CTA Bilaterally Gastrointestinal: Yes: WNL, Normal Bowel Sounds, Soft Renal/: Yes: WNL Kidneys: Yes: WNL Pelvis: Yes: WNL, Bladder Non Palpable, Other Scrotum: Yes: WNL Penis: Yes: WNL Prostate Exam: Yes: Asymmetrical, Firm Labs: CBC, BMP 09/15/17 06:00 09/17/17 06:00 Imaging - Results Cat Scan: Report Reviewed Ultrasound: Report Reviewed Assessment/Plan imp right stable 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
--- NOTE | 2017-09-17 15:16 | DS ---
Physical Examination Vital Signs: Vital Signs Temperature 98.3 F 09/17/17 13:23 Pulse Rate 50 L 09/17/17 13:23 Respiratory Rate 18 09/17/17 13:23 Blood Pressure 165/60 09/17/17 13:23 O2 Sat by Pulse Oximetry (%) 95 09/17/17 09:00 Findings/Remarks: CLEARED BY NEUROLOGY FOR DISCHARGE OUTPATIENT FOLLOW UP WITH DR PHILIP UROLOGY Constitutional: Yes: No Distress Eyes: Yes: WNL HENT: Yes: WNL Neck: Yes: WNL Cardiovascular: Yes: Bradycardia Respiratory: Yes: WNL Gastrointestinal: Yes: WNL Renal/: Yes: Incontinence Musculoskeletal: Yes: Muscle Weakness Extremities: Yes: WNL Edema: No Peripheral Pulses WNL: Yes Integumentary: Yes: WNL Wound/Incision: Yes: Clean/Dry Neurological: Yes: Pre-Existing Deficit ...Motor Strength: LLE, RLE Psychiatric: Yes: WNL Labs: CBC, BMP 09/15/17 06:00 09/17/17 06:00 Discharge Summary Reason For Visit: ACUTE KIDNEY INJURY; AMS; HYPERKALEMIA Current Active Problems GARRISON (acute kidney injury) (Acute) Altered mental status (Acute) Diabetes (Acute) Hydronephrosis (Acute) Hyperkalemia (Acute) Subdural hygroma (Acute) Procedures: Principal: CT HEAD Hospital Course: ADMITTED FOR ALTERED MENTAL SATUS, HYPERKALEMIA, RIGHT HYDRONEPHROSIS AND ACUTE RENAL FAILURE. PATIENT IS MEDICALLY CLEARED FOR DISCHARGE HOME, AFTER IVF, DIURETICS PATIENT'S LEVELS IMPROVED, HYDRONEPHROSIS F/U UROLOGY OUTPATIENT, SHUNT WILL NEED TO BE ADJUSTED WITH DR SOMMER NEUROSURGERY Condition: Stable - Instructions Diet, Activity, Other Instructions: LOW SALT NEEDS UROLOGY AND NEURO SURGERY FOLLOW UP OUTPATIENT. CARDIOLOGY FOLLOW UP FOR BRADYCARDIA (BYSTOLIC REDUCED FROM 10MG TO 5MG DAILY) Referrals: Juan Haas [Primary Care Provider] - Disposition: HOME - Home Medications Comprehensive Discharge Medication List: Ambulatory Orders Aspirin [ASA -] 81 mg PO DAILY 04/05/17 Donepezil HCl [Aricept -] 10 mg PO DAILY 04/05/17 Escitalopram Oxalate [Lexapro -] 10 mg PO DAILY 04/05/17 hydrALAZINE HCL [Apresoline -] 10 mg PO BID 04/05/17 Acetaminophen [Tylenol .Regular Strength -] 650 mg PO Q6H PRN tablet 04/15/17 Amino Acids/Protein Hydrolys [Prosource No Carb Liquid Pkt] 30 ml PO BID@0800, 1730 packet 04/15/17 Ascorbic Acid [Vitamin C -] 250 mg PO DAILY tablet 04/15/17 Multivitamins [Multivit ([facility] Formul[facility])] 1 tab PO DAILY tab 04/15/17 Pantoprazole Sodium [Protonix -] 40 mg PO DAILY tablet.ec 04/15/17 Rosuvastatin [Crestor -] 20 mg PO HS tablet 04/15/17 Tamsulosin HCl [Flomax -] 0.4 mg PO DAILY@0830 cap.er.24h 04/15/17 Febuxostat [Uloric] 40 mg PO DAILY 06/18/17 Memantine HCl [Namenda -] 5 mg PO BID 06/18/17 Mirabegron [Myrbetriq] 25 mg PO DAILY 06/18/17 Albuterol 0.083% Nebulizer Connie [Ventolin 0.083% Nebulizer Soln -] 1 amp NEB Q6H PRN amp 06/22/17 Nystatin/Triamcinolone Top Cr [Mycolog II -] 1 applic TP BID #90 applic Olanzapine [Zyprexa -] 5 mg PO HS tablet 06/22/17 clonazePAM [Klonopin -] 0.5 mg PO DAILY tablet MDD 1/2 TAB 06/22/17 Acetaminophen [Tylenol .Regular Strength -] 650 mg PO Q6H PRN tablet 09/17/17 Nebivolol [Bystolic -] 5 mg PO DAILY tab 09/17/17
--- NOTE | 2017-09-17 15:23 | PN ---
Progress Note, Physician History of Present Illness: Pt seen and examined at bedside. He is awake and appears comfortable. - Current Medication List Current Medications: Active Medications Acetaminophen (Tylenol -) 650 mg PO Q6H PRN PRN Reason: PAIN LEVEL 1-5 Last Admin: 09/15/17 18:23 Dose: 650 mg Ascorbic Acid (Vitamin C -) 250 mg PO DAILY [facility] Last Admin: 09/17/17 09:29 Dose: 250 mg Donepezil HCl (Aricept -) 10 mg PO DAILY [facility] Last Admin: 09/17/17 09:29 Dose: 10 mg Escitalopram Oxalate (Lexapro -) 10 mg PO DAILY [facility] Last Admin: 09/17/17 09:29 Dose: 10 mg Febuxostat (Uloric -) 40 mg PO DAILY [facility] Last Admin: 09/17/17 09:29 Dose: 40 mg Hydralazine HCl (Apresoline -) 10 mg PO TID [facility] Last Admin: 09/17/17 14:16 Dose: 10 mg Sodium Chloride (1/2 Normal Saline) 1,000 mls @ 50 mls/hr IV ASDIR [facility] Stop: 09/17/17 15:58 Last Admin: 09/16/17 17:44 Dose: 50 mls/hr Memantine (Namenda -) 5 mg PO BID [facility] Last Admin: 09/17/17 09:27 Dose: 5 mg Nebivolol (Bystolic -) 5 mg PO DAILY [facility] Olanzapine (Zyprexa -) 5 mg PO HS [facility] Last Admin: 09/16/17 21:13 Dose: 5 mg Pantoprazole Sodium (Protonix -) 40 mg PO DAILY [facility] Last Admin: 09/17/17 09:27 Dose: 40 mg Rosuvastatin Calcium (Crestor -) 10 mg PO HS [facility] Last Admin: 09/16/17 21:13 Dose: 10 mg Tamsulosin HCl (Flomax -) 0.4 mg PO DAILY@0830 [facility] Last Admin: 09/17/17 09:27 Dose: 0.4 mg - Objective Vital Signs: Vital Signs Temperature 98.3 F 09/17/17 13:23 Pulse Rate 50 L 09/17/17 13:23 Respiratory Rate 18 09/17/17 13:23 Blood Pressure 165/60 09/17/17 13:23 O2 Sat by Pulse Oximetry (%) 95 09/17/17 09:00 Constitutional: Yes: Calm Eyes: Yes: Conjunctiva Clear HENT: Yes: Atraumatic Cardiovascular: Yes: S1, S2 Respiratory: Yes: CTA Bilaterally Genitourinary: Yes: WNL Musculoskeletal: Yes: WNL Edema: No Neurological: Yes: Oriented Labs: CBC, BMP 09/15/17 06:00 09/17/17 06:00 INR, PTT INR 0.88 (0.82-1.09) 09/14/17 12:48 Problem List - Problems (1) GARRISON (acute kidney injury) Code(s): N17.9 - ACUTE KIDNEY FAILURE, UNSPECIFIED (2) Altered mental status Code(s): R41.82 - ALTERED MENTAL STATUS, UNSPECIFIED (3) Diabetes Code(s): E11.9 - TYPE 2 DIABETES MELLITUS WITHOUT COMPLICATIONS (4) Hyperkalemia Code(s): E87.5 - HYPERKALEMIA (5) Subdural hygroma Code(s): D18.1 - LYMPHANGIOMA, ANY SITE (6) CKD (chronic kidney disease) Code(s): N18.9 - CHRONIC KIDNEY DISEASE, UNSPECIFIED (7) NPH (normal pressure hydrocephalus) Code(s): G91.2 - (IDIOPATHIC) NORMAL PRESSURE HYDROCEPHALUS (8) Renal insufficiency Code(s): N28.9 - DISORDER OF KIDNEY AND URETER, UNSPECIFIED (9) Weakness Code(s): R53.1 - WEAKNESS Assessment/Plan Current Medications Generic Name Dose Route Start Last Admin Trade Name Freq PRN Reason Stop Dose Admin Acetaminophen 650 mg 09/15/17 18:01 09/15/17 18:23 Tylenol - PO 650 mg Q6H PRN Administration PAIN LEVEL 1-5 Ascorbic Acid 250 mg 09/15/17 10:00 09/17/17 09:29 Vitamin C - PO 250 mg DAILY [facility] Administration Donepezil HCl 10 mg 09/15/17 10:00 09/17/17 09:29 Aricept - PO 10 mg DAILY [facility] Administration Escitalopram Oxalate 10 mg 09/15/17 10:00 09/17/17 09:29 Lexapro - PO 10 mg DAILY [facility] Administration Febuxostat 40 mg 09/15/17 10:00 09/17/17 09:29 Uloric - PO 40 mg DAILY [facility] Administration Hydralazine HCl 10 mg 09/17/17 14:00 09/17/17 14:16 Apresoline - PO 10 mg TID [facility] Administration Sodium Chloride 1,000 mls @ 50 mls/hr 09/16/17 16:00 09/16/17 17:44 1/2 Normal Saline IV 09/17/17 15:58 50 mls/hr ASDIR [facility] Administration Memantine 5 mg 09/15/17 10:00 09/17/17 09:27 Namenda - PO 5 mg BID [facility] Administration Nebivolol 5 mg 09/17/17 13:32 Bystolic - PO DAILY [facility] Olanzapine 5 mg 09/15/17 22:00 09/16/17 21:13 Zyprexa - PO 5 mg HS [facility] Administration Pantoprazole Sodium 40 mg 09/15/17 10:00 09/17/17 09:27 Protonix - PO 40 mg DAILY [facility] Administration Rosuvastatin Calcium 10 mg 09/15/17 22:00 09/16/17 21:13 Crestor - PO 10 mg HS [facility] Administration Tamsulosin HCl 0.4 mg 09/15/17 08:30 09/17/17 09:27 Flomax - PO 0.4 mg DAILY@0830 [facility] Administration Impression 1. CKD 2. PKD 3. change in mental status 4. HTN 5. weakness 6. Hyperkalemia 7. prostate cancer 8. dementia 9. hyperlipidemia 10. GARRISON 11. 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
--- NOTE | 2017-09-17 16:03 | CON.CARD ---
Consult Consult Specialty:: Cardiology Referred by:: Dr Garcia Reason for Consultation:: bradycardia - History of Present Illness Chief Complaint: altered mental status History of Present Illness: 86 year old male with pmhx of CKD, PKD, hydrocephalus, CAD, HTN and prostate cancer who presented to the ER with altered mental status. He was found with GARRISON and hyperkalemia, given IVF. Also noted with bradycardia in the high 40s to low 50s. No cp, sob, orthopnea, pnd or edema. Exercise tolerance is poor but unchanged. Mental status is improved. Bystolic was held. 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 - Alcohol/Substance Use Hx Alcohol Use: No - Smoking History Smoking history: Never smoked Have you smoked in the past 12 months: No If you are a former smoker, when did you quit?: 1966 - Social History Usual Living Arrangement: With Spouse Home Medications - Allergies Allergies/Adverse Reactions: Allergies Allergy/AdvReac Type Severity Reaction Status Date / Time No Known Allergies Allergy Verified 09/14/17 12:21 - Home Medications Home Medications: Ambulatory Orders Aspirin [ASA -] 81 mg PO DAILY 04/05/17 Donepezil HCl [Aricept -] 10 mg PO DAILY 04/05/17 Escitalopram Oxalate [Lexapro -] 10 mg PO DAILY 04/05/17 hydrALAZINE HCL [Apresoline -] 10 mg PO BID 04/05/17 Acetaminophen [Tylenol .Regular Strength -] 650 mg PO Q6H PRN tablet 04/15/17 Amino Acids/Protein Hydrolys [Prosource No Carb Liquid Pkt] 30 ml PO BID@0800, 1730 packet 04/15/17 Ascorbic Acid [Vitamin C -] 250 mg PO DAILY tablet 04/15/17 Multivitamins [Multivit ([facility] Formul[facility])] 1 tab PO DAILY tab 04/15/17 Pantoprazole Sodium [Protonix -] 40 mg PO DAILY tablet.ec 04/15/17 Rosuvastatin [Crestor -] 20 mg PO HS tablet 04/15/17 Tamsulosin HCl [Flomax -] 0.4 mg PO DAILY@0830 cap.er.24h 04/15/17 Febuxostat [Uloric] 40 mg PO DAILY 06/18/17 Memantine HCl [Namenda -] 5 mg PO BID 06/18/17 Mirabegron [Myrbetriq] 25 mg PO DAILY 06/18/17 Albuterol 0.083% Nebulizer Connie [Ventolin 0.083% Nebulizer Soln -] 1 amp NEB Q6H PRN amp 06/22/17 Nystatin/Triamcinolone Top Cr [Mycolog II -] 1 applic TP BID #90 applic Olanzapine [Zyprexa -] 5 mg PO HS tablet 06/22/17 clonazePAM [Klonopin -] 0.5 mg PO DAILY tablet MDD 03/27 TAB 06/22/17 Acetaminophen [Tylenol .Regular Strength -] 650 mg PO Q6H PRN tablet 09/17/17 Nebivolol [Bystolic -] 5 mg PO DAILY tab 09/17/17 Vital Signs: Vital Signs Temperature 98.3 F 09/17/17 13:23 Pulse Rate 50 L 09/17/17 13:23 Respiratory Rate 18 09/17/17 13:23 Blood Pressure 165/60 09/17/17 13:23 O2 Sat by Pulse Oximetry (%) 95 09/17/17 09:00 Constitutional: Yes: No Distress, Calm Eyes: Yes: Conjunctiva Clear, EOM Intact HENT: Yes: Atraumatic, Normocephalic Neck: Yes: Supple, Trachea Midline Respiratory: Yes: CTA Bilaterally Gastrointestinal: Yes: Normal Bowel Sounds, Soft Cardiovascular: Yes: Bradycardia JVD: No Carotid Bruit: No PMI: Non-Displaced Heart Sounds: Yes: S1, S2 Edema: No Peripheral Pulses WNL: Yes - Other Data Labs, Other Data: CBC, BMP 09/15/17 06:00 09/17/17 06:00 INR, PTT INR 0.88 (0.82-1.09) 09/14/17 12:48 Imaging - Results EKG: Report Reviewed (sbrady) Problem List - Problems (1) Hypertension Assessment/Plan: His blood pressure is mildly elevated but HR is improving. He has no symptoms and his bp medication can be titrated as an outpatient. Follow up with Dr Star Dean [facility]. Stable for [place] home. Code(s): I10 - ESSENTIAL (PRIMARY) HYPERTENSION Qualifiers: Hypertension type: essential hypertension Qualified Code(s): I10 - Essential (primary) hypertension
--- NOTE | 2017-09-17 21:59 | EKG ---
Test Reason : Blood Pressure : / mmHG Vent. Rate : 048 BPM Atrial Rate : 048 BPM P-R Int : 162 ms QRS Dur : 146 ms QT Int : 500 ms P-R-T Axes : 030 005 007 degrees QTc Int : 446 ms SINUS BRADYCARDIA RIGHT BUNDLE BRANCH BLOCK ABNORMAL ECG WHEN COMPARED WITH ECG OF 18-JUN-2017 14:50, NO SIGNIFICANT CHANGE WAS FOUND Confirmed by NOEMY DOCKERY MD ([id number]) on 09/17/2017 9:59:23 PM Referred By: Confirmed By:NOEMY DOCKERY MD
== END 2017-09-17 20:49 | disposition home or self-care (01) | DRG 682 ==
LOC: JER 11:55 → JERBED 17:54 → J7W 22:20
PROVIDERS: ADMIT Internal Medicine; ATTEND Family Medicine
DX: N17.9 Acute kidney failure, unspecified (principal); G93.40 Encephalopathy, unspecified; E87.5 Hyperkalemia; I25.10 Atherosclerotic heart disease of native coronary artery without angina pectoris; I12.9 Hypertensive chronic kidney disease with stage 1 through stage 4 chronic kidney disease, or unspecified chronic kidney disease; N18.9 Chronic kidney disease, unspecified; R00.1 Bradycardia, unspecified; R41.82 Altered mental status, unspecified; E11.22 Type 2 diabetes mellitus with diabetic chronic kidney disease; F03.90 Unspecified dementia, unspecified severity, without behavioral disturbance, psychotic disturbance, mood disturbance, and anxiety; E78.5 Hyperlipidemia, unspecified; N13.30 Unspecified hydronephrosis; R53.1 Weakness; N40.0 Benign prostatic hyperplasia without lower urinary tract symptoms
CPT/HCPCS: 36415; 70360-TC-FY; 70450-TC; 71046-TC-FY; 74021-TC-FY; 76775-TC; 80048; 80053; 81003; 81015; 82550; 82962; 83036; 83605; 83735; 84132; 84484; 85025; 85027; 85610; 85730; 87040; 87086; 93005; 93010; 99282-25

== ENCOUNTER 2017-11-07 22:23 | Observation (INO) | payer OTHER ==
--- NOTE | 2017-11-07 22:35 | PDOC ---
History of Present Illness - General Stated Complaint: WEAKNESS Time Seen by Provider: 11/07/17 22:35 - History of Present Illness Initial Comments: 87 year old male with PMH of HTN, CAD, HLD, Dementia, VPH for NPH, OA, gout, and one kidney presenting with worsening gait, increased lethargy and slightly increased BP over the past week. 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 His neurosurgeon is diane and neurology is Bryant. No fevers, chills, appetite change, nausea, vomiting, diarrhea. He is incontinent at baseline. 11/07/17 22:47 Past History - Past Medical History Allergies/Adverse Reactions: Allergies Allergy/AdvReac Type Severity Reaction Status Date / Time No Known Allergies Allergy Verified 11/07/17 23:18 Home Medications: Ambulatory Orders Aspirin [ASA -] 81 mg PO DAILY 04/05/17 Donepezil HCl [Aricept -] 10 mg PO DAILY 04/05/17 Escitalopram Oxalate [Lexapro -] 10 mg PO DAILY 04/05/17 hydrALAZINE HCL [Apresoline -] 10 mg PO BID 04/05/17 Acetaminophen [Tylenol .Regular Strength -] 650 mg PO Q6H PRN tablet 04/15/17 Amino Acids/Protein Hydrolys [Prosource No Carb Liquid Pkt] 30 ml PO BID@0800, 1730 packet 04/15/17 Ascorbic Acid [Vitamin C -] 250 mg PO DAILY tablet 04/15/17 Multivitamins [Multivit ([facility] Formul[facility])] 1 tab PO DAILY tab 04/15/17 Pantoprazole Sodium [Protonix -] 40 mg PO DAILY tablet.ec 04/15/17 Rosuvastatin [Crestor -] 20 mg PO HS tablet 04/15/17 Tamsulosin HCl [Flomax -] 0.4 mg PO DAILY@0830 cap.er.24h 04/15/17 Febuxostat [Uloric] 40 mg PO DAILY 06/18/17 Memantine HCl [Namenda -] 5 mg PO BID 06/18/17 Mirabegron [Myrbetriq] 25 mg PO DAILY 06/18/17 Albuterol 0.083% Nebulizer Connie [Ventolin 0.083% Nebulizer Soln -] 1 amp NEB Q6H PRN amp 06/22/17 Nystatin/Triamcinolone Top Cr [Mycolog II -] 1 applic TP BID #90 applic Olanzapine [Zyprexa -] 5 mg PO HS tablet 06/22/17 clonazePAM [Klonopin -] 0.5 mg PO DAILY tablet MDD 1/2 TAB 06/22/17 Acetaminophen [Tylenol .Regular Strength -] 650 mg PO Q6H PRN tablet 09/17/17 Nebivolol [Bystolic -] 5 mg PO DAILY tab 09/17/17 Amoxicillin - [Amoxicillin 250mg Capsule -] 250 mg PO BID #14 capsule 11/06/17 Methyl Salicylate/Menthol Oint [Analgesic [place] -] 1 applic TP BID applic Anemia: No Asthma: No Cancer: Yes (- prostate) Cardiac Disorders: Yes CVA: No COPD: No CHF: No DVT: No Dementia: Yes Diabetes: No GI Disorders: No Disorders: Yes (born w/ one kidney) HTN: Yes Hypercholesterolemia: Yes Liver Disease: No Psychiatric Problems: Yes (depression) Seizures: No Thyroid Disease: No - Surgical History Abdominal Surgery: No Appendectomy: No Cardiac Surgery: Yes (open heart sx for valve replacement 2005) Cholecystectomy: No Lung Surgery: No Neurologic Surgery: No Orthopedic Surgery: Yes - Suicide/Smoking/Psychosocial Hx Smoking History: Former smoker Have you smoked in the past 12 months: No If you are a former smoker, when did you quit?: 1967 Hx Alcohol Use: No Drug/Substance Use Hx: No Substance Use Type: None Hx Substance Use Treatment: No Review of Systems - Review of Systems Constitutional: No: Chills, Diaphoresis, Fever, Loss of Appetite HEENTM: No: Blurred Vision, Cataracts Respiratory: No: Cough, Orthopnea, Shortness of Breath Cardiac (ROS): No: Chest Pain, Edema, Irregular Heart Rate ABD/GI: No: Diarrhea, Nausea, Vomiting : Yes: Incontinence. No: Dysuria, Discharge, Frequency Musculoskeletal: No: Back Pain, Joint Pain, Joint Swelling Integumentary: No: Bruising, Lesions, Lumps Neurological: Yes: Pre-Existing Deficit, Tremors, Weakness, Unsteady Gait, Ataxia. No: Headache, Numbness, Paresthesia Psychiatric: Yes: Sleep Pattern Change. No: Anxiety, Depression Endocrine: No: Increased Urine, Unexplained Weight Gain *Physical Exam - Physical Exam General Appearance: Yes: Nourished, Appropriately Dressed, Apparent Distress HEENT: positive: EOMI, LOLA, Normal ENT Inspection, Normal Voice Neck: positive: Trachea midline, Normal Thyroid, Supple. negative: Tender, Rigid Respiratory/Chest: positive: Lungs Clear, Normal Breath Sounds. negative: Chest Tender, Respiratory Distress, Accessory Muscle Use Cardiovascular: positive: Regular Rhythm, Regular Rate Gastrointestinal/Abdominal: positive: Normal Bowel Sounds, Tender, Flat, Soft Lymphatic: negative: Adenopathy, Tenderness Musculoskeletal: positive: Normal Inspection. negative: Decreased Range of Motion Extremity: positive: Normal Capillary Refill, Normal Inspection, Normal Range of Motion. negative: Tender Integumentary: positive: Normal Color, Dry, Warm Neurologic: positive: training mgr II-XII NML intact, Fully Oriented (But more short term memory recall), Alert, Normal Mood/Affect, Normal Response, Motor Strength 07/28 ED Treatment Course - LABORATORY CBC & Chemistry Diagram: 11/08/17 05:55 11/10/17 10:25 Medical Decision Making - Medical Decision Making 87 year old male with increasing tremors and gait deficit concerning for increasing ICH from possible blocked intraventricular shunt. Although, CT head should non-obstructive CSF pattern and labs roughly WNL. Patient appears non- infectious. Will admit patient for further neuro workup under Dr. Jones per his request. *DC/Admit/Observation/Transfer Diagnosis at time of Disposition: Weak - Referrals - Patient Instructions - Post Discharge Activity
--- NOTE | 2017-11-07 22:46 | PDOC ---
Attending Attestation - HPI HPI: 11/07/17 23:32 The patient is an 87 year old male with a significant past medical history of HTN, CAD, HLD, Dementia, VPH for NPH, OA, gout, and nephrectomy who presents to the ED with difficulty ambulating, increased lethargy and slightly increased blood pressure over the past week. The patient reports having his STREET SPRINKLER shunt adjusted because of tremors which resolved. The patient denies fevers, chills, appetite change, nausea, vomiting, diarrhea, constipation. He denies headache, chest pain or shortness of breath. He is incontinent at baseline. neurosurgeon: Dr. Roca neurologist: Dr. Hurtado. - Physicial Exam PE: 11/07/17 23:35 GENERAL: Well-appearing, well-nourished. No apparent distress. HEENT: Normocephalic, atraumatic. PERRL, EOM intact. CARDIOVASCULAR: Normal S1, S2. Regular rate and rhythm. PULMONARY: Clear to auscultation bilaterally. ABDOMEN: Soft, non-distended, non-tender. EXTREMITIES: Normal ROM in all four extremities. No gross deformities. SKIN: Warm, dry. No rash NEUROLOGICAL: No focal neurological deficits. - Medical Decision Making 11/07/17 23:36 Documentation prepared by Francesca Bautista, acting as emergency medical technician for Billy Randhawa DO. 11/08/17 00:13 Dr. Slade Ferrari was paged via phone answering service at this time. <Francesca Bautista - Last Filed: 11/08/17 00:19> - Resident Resident Name: Melody Pino - ED Attending Attestation I have performed the following: I have examined & evaluated the patient, The case was reviewed & discussed with the resident, I agree w/resident's findings & plan, Exceptions are as noted - Medical Decision Making 11/08/17 01:31 Pt will be admitted for further evaluation and care <Billy Randhawa - Last Filed: 11/08/17 01:31>
[2017-11-08 00:15] LABS: BASO % 0.8 % (0-2.0); EOS % 3.3 % (0-4.5); HEMATOCRIT 34.8 % (35.4-49); HEMOGLOBIN 11.2 GM/dL (11.7-16.9); LYMPH % 27.9 % (8-40); MCH 25.3 pg (25.7-33.7); MCHC 32.1 g/dl (32.0-35.9); MEAN CELL VOLUME 78.9 fl (80-96); MONO % 10.3 % (3.8-10.2); NEUT % 57.7 % (42.8-82.8); PLATELET COUNT 121 K/MM3 (134-434); RBC 4.41 M/mm3 (4.00-5.60); RDW 14.4 % (11.9-15.9); WHITE BLOOD COUNT 6.8 K/mm3 (4.0-10.0)
[2017-11-08 00:25] LABS: INR 1.02 (0.83-1.09); PROTHROMBIN TIME (PATIENT) 11.5 SEC (9.7-13.0)
[2017-11-08 00:34] LABS: ALBUMIN 3.2 g/dl (3.4-5.0); ANION GAP 8 (8-16); BILIRUBIN,TOTAL 0.1 mg/dL (0.2-1.0); BLOOD UREA NITROGEN 44 mg/dL (7-18); CALCIUM 8.2 mg/dL (8.5-10.1); CHLORIDE 111 mmol/L (98-107); CO2 25 mmol/L (21-32); CREATININE 2.3 mg/dL (0.7-1.3); GLUCOSE,RANDOM 102 mg/dL (74-106); POTASSIUM 4.6 mmol/L (3.5-5.1); SGOT/AST 17 U/L (15-37); SGPT/ALT 29 U/L (12-78); SODIUM 144 mmol/L (136-145)
[2017-11-08 00:35] LABS: ALK PHOS 83 U/L (45-117)
[2017-11-08] MEDS ORDERED: ALBUTEROL SO4 0.083% IH SOL 2.5 MG/3 ML VIAL.NEB. NEB PRN (01:27)
[2017-11-08] MEDS ORDERED: ACETAMINOPHEN 325 MG TABLET (FP) PO PRN (01:27)
--- NOTE | 2017-11-08 01:49 | HP ---
CHIEF COMPLAINT: worsening gait PCP: Dr. aRe HISTORY OF PRESENT ILLNESS: 87 year old male with a hx of NPH (BIRTH CERTIFICATE CLERK shunt placed several months ago), HTN, CAD , HLD, dementia, OA, gout, 1 kidney was brought to the hospital for 1 week of worsening gait, lethargy, and worsening of his tremors. Patient is A&Ox3 but is a very poor historian and is unable to describe any changes to his status, reporting that he feels at baseline and that he is here for a "check up". The history was obtained from the chart and ED. Patient at the moment denies any chest pain, SOB, headache, nausea, vomiting, diarrhea, fevers, chills. As per record, Patient recently had his BIRTH CERTIFICATE CLERK shunt adjusted and the family reported that his symptoms started shortly after the shunt was adjusted. ER course was notable for: (1) Hgb 11.2 (2) HR 47 (3) BUN/Cre 44/2.3 Recent Travel: unknown PAST MEDICAL HISTORY: as listed above PAST SURGICAL HISTORY: unable to obtain from patient Social History: Smoking: denies Alcohol: denies Drugs: denies Family History: unknown Allergies No Known Allergies Allergy (Verified 11/07/17 23:18) HOME MEDICATIONS: Home Medications Medication Instructions Recorded Aspirin [ASA -] 81 mg PO DAILY 04/05/17 Donepezil HCl [Aricept -] 10 mg PO DAILY 04/05/17 Escitalopram Oxalate [Lexapro -] 10 mg PO DAILY 04/05/17 hydrALAZINE HCL [Apresoline -] 10 mg PO BID 04/05/17 Acetaminophen [Tylenol .Regular 650 mg PO Q6H PRN tablet 04/15/17 Strength -] Amino Acids/Protein Hydrolys 30 ml PO BID@0800,1730 packet 04/15/17 [Prosource No Carb Liquid Pkt] Ascorbic Acid [Vitamin C -] 250 mg PO DAILY tablet 04/15/17 Multivitamins [Multivit ([facility] 1 tab PO DAILY tab 04/15/17 Formulary)] Pantoprazole Sodium [Protonix -] 40 mg PO DAILY tablet.ec 04/15/17 Rosuvastatin [Crestor -] 20 mg PO HS tablet 04/15/17 Tamsulosin HCl [Flomax -] 0.4 mg PO DAILY@0830 cap.er.24h 04/15/17 Febuxostat [Uloric] 40 mg PO DAILY 06/18/17 Memantine HCl [Namenda -] 5 mg PO BID 06/18/17 Mirabegron [Myrbetriq] 25 mg PO DAILY 06/18/17 Albuterol 0.083% Nebulizer Connie 1 amp NEB Q6H PRN amp 06/22/17 [Ventolin 0.083% Nebulizer Soln -] Nystatin/Triamcinolone Top Cr 1 applic TP BID #90 applic 06/22/17 [Mycolog II -] Olanzapine [Zyprexa -] 5 mg PO HS tablet 06/22/17 clonazePAM [Klonopin -] 0.5 mg PO DAILY tablet MDD 1/2 TAB 06/22/17 Acetaminophen [Tylenol .Regular 650 mg PO Q6H PRN tablet 09/17/17 Strength -] Nebivolol [Bystolic -] 5 mg PO DAILY tab 09/17/17 Amoxicillin - [Amoxicillin 250mg 250 mg PO BID #14 capsule 11/06/17 Capsule -] Methyl Salicylate/Menthol Oint 1 applic TP BID applic 11/06/17 [Analgesic [place] -] REVIEW OF SYSTEMS CONSTITUTIONAL: Absent: fever, chills, diaphoresis, generalized weakness, malaise, loss of appetite, weight change HEENT: Absent: rhinorrhea, nasal congestion, throat pain, throat swelling, difficulty swallowing, mouth swelling, ear pain, eye pain, visual changes CARDIOVASCULAR: Absent: chest pain, syncope, palpitations, irregular heart rate, lightheadedness , peripheral edema RESPIRATORY: Absent: cough, shortness of breath, dyspnea with exertion, orthopnea, wheezing, stridor, hemoptysis GASTROINTESTINAL: Absent: abdominal pain, abdominal distension, nausea, vomiting, diarrhea, constipation, melena, hematochezia GENITOURINARY: Absent: dysuria, frequency, urgency, hesitancy, hematuria, flank pain, genital pain MUSCULOSKELETAL: Absent: myalgia, arthralgia, joint swelling, back pain, neck pain SKIN: Absent: rash, itching, pallor HEMATOLOGIC/IMMUNOLOGIC: Absent: easy bleeding, easy bruising, lymphadenopathy, frequent infections ENDOCRINE: Absent: unexplained weight gain, unexplained weight loss, heat intolerance, cold intolerance NEUROLOGIC: Absent: headache, focal weakness or paresthesias, dizziness, unsteady gait, seizure, mental status changes, bladder or bowel incontinence PSYCHIATRIC: Absent: anxiety, depression, suicidal or homicidal ideation, hallucinations. PHYSICAL EXAMINATION Vital Signs - 24 hr 11/08/17 01:42 Temperature 98.3 F Pulse Rate [ 53 L Apical] Respiratory 15 Rate Blood Pressure 180/69 [Right Arm] O2 Sat by Pulse 95 Oximetry (%) GENERAL: A&Ox3, no acute distress EYES: PERRLA, EOMI ENT: Moist mucus membranes NECK: No JVD LUNGS: CTA, no wheezes HEART: bradycardic, harsh systolic murmur noted on exam ABDOMEN: Soft, nontender, BS present MUSCULOSKELETAL: No CVA Tenderness, midline scar on sternum from previous surgery EXTREMITIES: 2+ pulses, no edema. NEUROLOGICAL: Cranial nerves II-XII intact. Laboratory Results - last 24 hr 11/07/17 11/07/17 11/07/17 23:55 23:55 23:55 WBC 6.8 RBC 4.41 Hgb 11.2 L Hct 34.8 L MCV 78.9 L MCH 25.3 L MCHC 32.1 RDW 14.4 Plt Count 121 L MPV 10.0 Absolute Neuts (auto) 3.9 Neutrophils % 57.7 Lymphocytes % 27.9 Monocytes % 10.3 H Eosinophils % 3.3 Basophils % 0.8 Nucleated RBC % 0 PT with INR 11.50 INR 1.02 Sodium 144 Potassium 4.6 Chloride 111 H Carbon Dioxide 25 Anion Gap 8 BUN 44 H Creatinine 2.3 H Creat Clearance w eGFR 27.16 Random Glucose 102 D Calcium 8.2 L Total Bilirubin 0.1 L AST 17 ALT 29 Alkaline Phosphatase 83 Total Protein 6.0 L Albumin 3.2 L Blood Type Antibody Screen 11/08/17 00:30 WBC RBC Hgb Hct MCV MCH MCHC RDW Plt Count MPV Absolute Neuts (auto) Neutrophils % Lymphocytes % Monocytes % Eosinophils % Basophils % Nucleated RBC % PT with INR INR Sodium Potassium Chloride Carbon Dioxide Anion Gap BUN Creatinine Creat Clearance w eGFR Random Glucose Calcium Total Bilirubin AST ALT Alkaline Phosphatase Total Protein Albumin Blood Type A POSITIVE Antibody Screen Negative ASSESSMENT/PLAN: 87 year old male with a hx of NPH (BIRTH CERTIFICATE CLERK shunt placed several months ago), HTN, CAD , HLD, dementia, OA, gout, 1 kidney brought by family for worsening gait, increased lethargy, and increased tremors #Worsening gait/tremors: possibly 2/2 NPH, could be a malfunction of BIRTH CERTIFICATE CLERK shunt, but cannot rule out other causes yet. Patient has had previous admission for similar chief complaint in the past -head CT negative for any acute pathology or acute obstructive hydrocephalus -neurology consult Dr. Recinos for possible adjustment #HTN: hypertensive to 180/69 -resume home meds (bystolic and hydralazine) and give dose of 10mg hydralazine now #CAD resume ASA and statin #CKD: chronic -UA ordered #Anemia: chronic #Dementia: -continue aricept and namenda FEN No standing fluids lytes wnl, repeat BMP in AM low Na diet Prophylaxis -heparin prophylaxis Disposition -admit obs Visit type - Emergency Visit Emergency Visit: Yes ED Registration Date: 11/08/17 Care time: The patient presented to the Emergency Department on the above date and was hospitalized for further evaluation of their emergent condition. - New Patient This patient is new to me today: Yes Date on this admission: 11/08/17 - Critical Care Critical Care patient: No Hospitalist Screening - Colonoscopy Questionnaire Colonoscopy Questionnaire: Colonoscopy Questionnaire - Patient: 50 - 75 years old and never had a screening colonoscopy: Unknown History of colon or rectal polyps, or CA: Unknown History of IBD, Crohn's disease or UC: Unknown History of abdominal radiation therapy as a child: Unknown - Relative: 1 with colon or rectal CA, or polyps at age 60 or younger: Unknown Colon or rectal CA diagnosed at age 45 or younger: Unknown Multiple relatives with colon or rectal CA: Unknown - Outcome: Screening Result: Negative Screen
[2017-11-08] MEDS ORDERED: HEPARIN NA (PORCINE) 5,000 UNITS/ML 1ML VIAL SQ SCH (02:00)
[2017-11-08 02:22] VITALS: BMI 26.6
[2017-11-08] MEDS: hydrALAZINE HCL 10 MG TABLET PO SCH ×3 (02:30→21:38)
[2017-11-08] MEDS ORDERED: HEPARIN NA (PORCINE) 5,000 UNITS/ML 1ML VIAL ONE (02:31)
--- NOTE | 2017-11-08 03:50 | PN ---
Teaching Attending Note Name of Resident: Gael Patrick ATTENDING PHYSICIAN STATEMENT I saw and evaluated the patient. I reviewed the resident's note and discussed the case with the resident. I agree with the resident's findings and plan as documented. 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 Patient is alert and oriented x 3 but is unable to describe any changes to his status, reporting that he feels at baseline and that he is here for a "check up". The history was obtained from the chart and ED. Patient at the moment denies any chest pain, SOB, headache, nausea, vomiting , diarrhea, fevers, chills. 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 His PCP wants neurology evaluation. OBJECTIVE: Alert and in no distress Vital Signs Period Temp Pulse Resp BP Sys/Handy Pulse Ox Last 24 Hr 98.2 F-98.3 F 53-65 15-18 159-180/60-69 95-96 HEENT: No Jaundice, eye redness or discharge, PERRLA, EOMI. Normocephalic, atraumatic. External ears are normal and hearing is grossly intact. No nasal discharge. Neck: Supple, nontender. No palpable adenopathy or thyromegaly. No JVD Chest: Good effort. Clear to auscultation and percussion. Heart: Bradycardia. No S3, rub or murmur Abdomen: Not distended, soft, nontender and no HSM. No rebound or guarding. Normoactive bowel sounds. Ext: Peripheral pulses intact. No leg edema. Skin: Warm and dry. No petechiae, rash or ecchymosis. Neuro: Alert. Oriented x3. CN 2-12 grossly intact. Sensation grossly intact in all four extremities and DTR are symmetric. Gait cannot be tested for safety reasons. Current Medications Generic Name Dose Route Start Last Admin Trade Name Freq PRN Reason Stop Dose Admin Acetaminophen 650 mg 11/08/17 01:27 Tylenol - PO Q6H PRN PAIN LEVEL 1-5 Albuterol Sulfate 1 amp 11/08/17 01:27 Ventolin 0.083% Nebulizer Soln - NEB Q6H PRN SHORT OF BREATH/WHEEZING Ascorbic Acid 250 mg 11/08/17 10:00 Vitamin C - PO DAILY [facility] Aspirin 81 mg 11/08/17 10:00 Asa - PO DAILY [facility] Clonazepam 0.5 mg 11/08/17 10:00 Klonopin - PO DAILY [facility] Donepezil HCl 10 mg 11/08/17 10:00 Aricept - PO DAILY [facility] Escitalopram Oxalate 10 mg 11/08/17 10:00 Lexapro - PO DAILY [facility] Febuxostat 40 mg 11/08/17 10:00 Uloric - PO DAILY [facility] Heparin Sodium (Porcine) 5,000 unit 11/08/17 14:00 Heparin - SQ TID [facility] Hydralazine HCl 10 mg 11/08/17 02:00 11/08/17 02:30 Apresoline - PO 10 mg BID [facility] Administration Memantine 5 mg 11/08/17 10:00 Namenda - PO BID [facility] Multivitamins/Minerals/Vitamin C 1 tab 11/08/17 10:00 Tab-A-Vit - PO DAILY [facility] Nebivolol 5 mg 11/08/17 10:00 Bystolic - PO DAILY [facility] Non-Formulary Medication 25 mg 11/08/17 10:00 Mirabegron [Myrbetriq] PO DAILY [facility] Olanzapine 5 mg 11/08/17 22:00 Zyprexa - PO HS [facility] Pantoprazole Sodium 40 mg 11/08/17 10:00 Protonix - PO DAILY [facility] Rosuvastatin Calcium 20 mg 11/08/17 22:00 Crestor - PO HS [facility] Tamsulosin HCl 0.4 mg 11/08/17 08:30 Flomax - PO DAILY@0830 [facility] Home Medications Medication Instructions Recorded Aspirin [ASA -] 81 mg PO DAILY 04/05/17 Donepezil HCl [Aricept -] 10 mg PO DAILY 04/05/17 Escitalopram Oxalate [Lexapro -] 10 mg PO DAILY 04/05/17 hydrALAZINE HCL [Apresoline -] 10 mg PO BID 04/05/17 Acetaminophen [Tylenol .Regular 650 mg PO Q6H PRN tablet 04/15/17 Strength -] Amino Acids/Protein Hydrolys 30 ml PO BID@0800,1730 packet 04/15/17 [Prosource No Carb Liquid Pkt] Ascorbic Acid [Vitamin C -] 250 mg PO DAILY tablet 04/15/17 Multivitamins [Multivit ([facility] 1 tab PO DAILY tab 04/15/17 Formulary)] Pantoprazole Sodium [Protonix -] 40 mg PO DAILY tablet.ec 04/15/17 Rosuvastatin [Crestor -] 20 mg PO HS tablet 04/15/17 Tamsulosin HCl [Flomax -] 0.4 mg PO DAILY@0830 cap.er.24h 04/15/17 Febuxostat [Uloric] 40 mg PO DAILY 06/18/17 Memantine HCl [Namenda -] 5 mg PO BID 06/18/17 Mirabegron [Myrbetriq] 25 mg PO DAILY 06/18/17 Albuterol 0.083% Nebulizer Connie 1 amp NEB Q6H PRN amp 06/22/17 [Ventolin 0.083% Nebulizer Soln -] Nystatin/Triamcinolone Top Cr 1 applic TP BID #90 applic 06/22/17 [Mycolog II -] Olanzapine [Zyprexa -] 5 mg PO HS tablet 06/22/17 clonazePAM [Klonopin -] 0.5 mg PO DAILY tablet MDD 1/2 TAB 06/22/17 Acetaminophen [Tylenol .Regular 650 mg PO Q6H PRN tablet 09/17/17 Strength -] Nebivolol [Bystolic -] 5 mg PO DAILY tab 09/17/17 Amoxicillin - [Amoxicillin 250mg 250 mg PO BID #14 capsule 11/06/17 Capsule -] Methyl Salicylate/Menthol Oint 1 applic TP BID applic 11/06/17 [Analgesic [place] -] Abnormal Lab Results 11/07/17 11/07/17 23:55 23:55 Hgb 11.2 L Hct 34.8 L MCV 78.9 L MCH 25.3 L Plt Count 121 L Monocytes % 10.3 H Chloride 111 H BUN 44 H Creatinine 2.3 H Calcium 8.2 L Total Bilirubin 0.1 L Total Protein 6.0 L Albumin 3.2 L ASSESSMENT AND PLAN: 1. Normal pressure hydrocephalus with CHILD [employer] shunt - Head CT does not show any new abnormalities. Family feels his symptoms always follow "adjustment" of his shunt. He is alert and denies dizziness and lightheadedness. Will encourage liberal oral fluids to correct any associated dehydration and get UA. Neurology consulted. Will monitor him closely and implement fall precautions. 2. CKD - He does not know how he ended up with one kidney. Will consult nephrology and avoid nephrotoxic agents such as NSAIDS, aminoglycosides, contrast dyes and certain Alternative medicine products. Will restart his antihypertensive drugs to attain normotension. 3. Low MCV Anemia - Needs GI consult and possibly colonoscopy if he has not had one recently. Do basic anemia work up including serial stool guaiacs, reticulocyte count and iron studies. 4. DVT prophylaxis - Heparin 5000u sq tid. 5. Advance directives - Full code
[2017-11-08 07:19] LABS: HEMATOCRIT 35.9 % (35.4-49); HEMOGLOBIN 11.5 GM/dL (11.7-16.9); MCH 25.4 pg (25.7-33.7); MCHC 32.1 g/dl (32.0-35.9); MEAN PLT VOLUME 10.5 fl (7.5-11.1); PLATELET COUNT 114 K/MM3 (134-434); RBC 4.54 M/mm3 (4.00-5.60); RDW 14.1 % (11.9-15.9); WHITE BLOOD COUNT 7.6 K/mm3 (4.0-10.0)
[2017-11-08 07:53] LABS: ANION GAP 7 (8-16); BLOOD UREA NITROGEN 47 mg/dL (7-18); CALCIUM 8.5 mg/dL (8.5-10.1); CHLORIDE 111 mmol/L (98-107); CO2 24 mmol/L (21-32); GLUCOSE,RANDOM 90 mg/dL (74-106); MAGNESIUM 1.8 mg/dL (1.8-2.4); POTASSIUM 4.9 mmol/L (3.5-5.1); SODIUM 142 mmol/L (136-145)
[2017-11-08 07:59] LABS: CREATININE 2.2 mg/dL (0.7-1.3); PHOSPHOROUS 4.2 mg/dL (2.5-4.9)
--- NOTE | 2017-11-08 08:40 | PN ---
Progress Note, Physician - Current Medication List Current Medications: Active Medications Acetaminophen (Tylenol -) 650 mg PO Q6H PRN PRN Reason: PAIN LEVEL 1-5 Albuterol Sulfate (Ventolin 0.083% Nebulizer Soln -) 1 amp NEB Q6H PRN PRN Reason: SHORT OF BREATH/WHEEZING Ascorbic Acid (Vitamin C -) 250 mg PO DAILY [facility] Aspirin (Asa -) 81 mg PO DAILY [facility] Clonazepam (Klonopin -) 0.5 mg PO DAILY [facility] Donepezil HCl (Aricept -) 10 mg PO DAILY [facility] Escitalopram Oxalate (Lexapro -) 10 mg PO DAILY [facility] Febuxostat (Uloric -) 40 mg PO DAILY [facility] Heparin Sodium (Porcine) (Heparin -) 5,000 unit SQ TID [facility] Hydralazine HCl (Apresoline -) 10 mg PO BID [facility] Last Admin: 11/08/17 02:30 Dose: 10 mg Memantine (Namenda -) 5 mg PO BID [facility] Multivitamins/Minerals/Vitamin C (Tab-A-Vit -) 1 tab PO DAILY [facility] Non-Formulary Medication (Mirabegron [Myrbetriq]) 25 mg PO DAILY [facility] Olanzapine (Zyprexa -) 5 mg PO HS [facility] Pantoprazole Sodium (Protonix -) 40 mg PO DAILY [facility] Rosuvastatin Calcium (Crestor -) 20 mg PO HS [facility] Tamsulosin HCl (Flomax -) 0.4 mg PO DAILY@0830 [facility] - Objective Vital Signs: Vital Signs Temperature 98.3 F 11/08/17 06:09 Pulse Rate 48 L 11/08/17 06:09 Respiratory Rate 14 11/08/17 06:09 Blood Pressure 166/76 11/08/17 06:09 O2 Sat by Pulse Oximetry (%) 95 11/08/17 06:09 Labs: CBC, BMP 11/08/17 05:55 11/08/17 05:55 INR, PTT INR 1.02 (0.83-1.09) 11/07/17 23:55 Problem List - Problems (1) Weak Assessment/Plan: #Worsening gait/tremors: possibly 2/2 NPH, could be a malfunction of THERAPY DIRECTOR shunt, but cannot rule out other causes yet. Patient has had previous admission for similar chief complaint in the past -head CT negative for any acute pathology or acute obstructive hydrocephalus -neurology consult Dr. Recinos for possible adjustment Code(s): R53.1 - WEAKNESS (2) Bradycardia Assessment/Plan: -Monitor -Cardio -Hold BB Code(s): R00.1 - BRADYCARDIA, UNSPECIFIED (3) Diabetes Assessment/Plan: bgm with coverage Code(s): E11.9 - TYPE 2 DIABETES MELLITUS WITHOUT COMPLICATIONS (4) Hypertension Assessment/Plan: -monitor Code(s): I10 - ESSENTIAL (PRIMARY) HYPERTENSION Qualifiers: Assessment/Plan 87 year old male with a hx of NPH (THERAPY DIRECTOR shunt placed several months ago), HTN, CAD , HLD, dementia, OA, gout, 1 kidney brought by family for worsening gait, increased lethargy, and increased tremors
[2017-11-08 08:59] LABS: ARTERIAL BLD GAS O2 SATURATION 95.3 % (90-98.9); ARTERIAL BLOOD GAS BASE EXCESS -4.1 meq/l (-2-2); ARTERIAL BLOOD GAS PCO2 44.4 mmHg (35-45); ARTERIAL BLOOD GAS PO2 77.4 mmHg (68-100); ARTERIAL BLOOD GAS pH 7.31 (7.35-7.45)
[2017-11-08 09:01] LABS: ALLENS TEST POSITIVE
[2017-11-08] MEDS ORDERED: TAMSULOSIN HCL 0.4 MG CAP.ER.24H (FP) ONE (09:24)
[2017-11-08] MEDS: TAMSULOSIN HCL 0.4 MG CAP.ER.24H (FP) PO SCH (09:26)
--- NOTE | 2017-11-08 09:58 | EKG ---
Test Reason : Blood Pressure : / mmHG Vent. Rate : 047 BPM Atrial Rate : 047 BPM P-R Int : 154 ms QRS Dur : 144 ms QT Int : 504 ms P-R-T Axes : 006 -06 001 degrees QTc Int : 446 ms SINUS BRADYCARDIA RIGHT BUNDLE BRANCH BLOCK POSSIBLE INFERIOR INFARCT (CITED ON OR BEFORE 02-NOV-2017) ABNORMAL ECG WHEN COMPARED WITH ECG OF 02-NOV-2017 12:13, NO SIGNIFICANT CHANGE WAS FOUND Confirmed by GENEVA JUAREZ, AYAD ([id number]) on 11/08/2017 9:57:42 AM Referred By: Confirmed By:AYAD BEAN MD
[2017-11-08] MEDS ORDERED: NEBIVOLOL 5 MG TABLET (FP) PO SCH (10:00)
[2017-11-08] MEDS ORDERED: PATIENT'S OWN MEDICATION (NON-FORMULARY) (Mirabegron [Myrbetriq] 25 MG) PO SCH ×2 (10:00)
[2017-11-08] MEDS ORDERED: hydrALAZINE HCL 10 MG TABLET PO SCH (10:00)
--- NOTE | 2017-11-08 10:11 | CON.NEURO ---
Consult - History of Present Illness History of Present Illness: 87 year old male with a hx of NPH (SUSTAINABILITY PROJECT COORDINATOR shunt placed several months ago- DR FOSTER ), HTN, CAD, HLD, dementia, OA, gout, 1 kidney, hx of recurrent UTI, was brought to the hospital for 1 week of worsening gait, lethargy, and worsening of his tremors. Patient is A&Ox3 but is a very poor historian and is unable to describe any changes to his status, reporting that he feels at baseline and that he is here for a "check up". The history was obtained from the chart and ED. Patient at the moment denies any chest pain, SOB, headache, nausea, vomiting, diarrhea, fevers, chills. As per record, Patient recently had his SUSTAINABILITY PROJECT COORDINATOR shunt adjusted and the family reported that his symptoms started shortly after the shunt was adjusted. 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: Yes: Dementia, Other (hydrocephalus) Cardio/Vascular: Yes: CAD, HTN, Hyperlipdemia Renal/: Yes: Renal Inusuff, UTI, Other (PKD) Rheumatology: Yes: Gout - Alcohol/Substance Use Hx Alcohol Use: No - Smoking History Smoking history: Former smoker Have you smoked in the past 12 months: No If you are a former smoker, when did you quit?: 1966 - Social History Usual Living Arrangement: With Spouse Home Medications - Allergies Allergies/Adverse Reactions: Allergies Allergy/AdvReac Type Severity Reaction Status Date / Time No Known Allergies Allergy Verified 11/07/17 23:18 - Home Medications Home Medications: Ambulatory Orders Aspirin [ASA -] 81 mg PO DAILY 04/05/17 Donepezil HCl [Aricept -] 10 mg PO DAILY 04/05/17 Escitalopram Oxalate [Lexapro -] 10 mg PO DAILY 04/05/17 hydrALAZINE HCL [Apresoline -] 10 mg PO BID 04/05/17 Acetaminophen [Tylenol .Regular Strength -] 650 mg PO Q6H PRN tablet 04/15/17 Amino Acids/Protein Hydrolys [Prosource No Carb Liquid Pkt] 30 ml PO BID@0800, 1730 packet 04/15/17 Ascorbic Acid [Vitamin C -] 250 mg PO DAILY tablet 04/15/17 Multivitamins [Multivit ([facility] Formulary)] 1 tab PO DAILY tab 04/15/17 Pantoprazole Sodium [Protonix -] 40 mg PO DAILY tablet.ec 04/15/17 Rosuvastatin [Crestor -] 20 mg PO HS tablet 04/15/17 Tamsulosin HCl [Flomax -] 0.4 mg PO DAILY@0830 cap.er.24h 04/15/17 Febuxostat [Uloric] 40 mg PO DAILY 06/18/17 Memantine HCl [Namenda -] 5 mg PO BID 06/18/17 Mirabegron [Myrbetriq] 25 mg PO DAILY 06/18/17 Albuterol 0.083% Nebulizer Connie [Ventolin 0.083% Nebulizer Soln -] 1 amp NEB Q6H PRN amp 06/22/17 Nystatin/Triamcinolone Top Cr [Mycolog II -] 1 applic TP BID #90 applic Olanzapine [Zyprexa -] 5 mg PO HS tablet 06/22/17 clonazePAM [Klonopin -] 0.5 mg PO DAILY tablet MDD 1/2 TAB 06/22/17 Acetaminophen [Tylenol .Regular Strength -] 650 mg PO Q6H PRN tablet 09/17/17 Nebivolol [Bystolic -] 5 mg PO DAILY tab 09/17/17 Amoxicillin - [Amoxicillin 250mg Capsule -] 250 mg PO BID #14 capsule 11/06/17 Methyl Salicylate/Menthol Oint [Analgesic [place] -] 1 applic TP BID applic Physical Exam-Neuro Vital Signs: Vital Signs Temperature 98.3 F 11/08/17 06:09 Pulse Rate 48 L 11/08/17 06:09 Respiratory Rate 14 11/08/17 06:09 Blood Pressure 166/76 11/08/17 06:09 O2 Sat by Pulse Oximetry (%) 95 11/08/17 06:09 Constitutional: Yes: Well Nourished, No Distress Labs: CBC, BMP 11/08/17 05:55 11/08/17 05:55 INR, PTT INR 1.02 (0.83-1.09) 11/07/17 23:55 - Neuro Exam Level Of Consciousness: Yes: Alert (sleeping but wakes up appropraitely when stimulated ; a/A/O x 3-- EOMI, no facial, moving x 4, planatrs down ) Imaging - Results Cat Scan: Report Reviewed, Image Reviewed Problem List - Problems (1) Normal pressure hydrocephalus Code(s): G91.2 - (IDIOPATHIC) NORMAL PRESSURE HYDROCEPHALUS (2) GARRISON (acute kidney injury) Code(s): N17.9 - ACUTE KIDNEY FAILURE, UNSPECIFIED (3) Acute metabolic encephalopathy Code(s): G93.41 - METABOLIC ENCEPHALOPATHY (4) Subdural hygroma Code(s): D18.1 - LYMPHANGIOMA, ANY SITE Assessment/Plan 87 year old male with a hx of NPH (SUSTAINABILITY PROJECT COORDINATOR shunt placed several months ago- DR FOSTER ), HTN, CAD, HLD, dementia, OA, gout, 1 kidney, hx of recurrent UTI, was brought to the hospital for 1 week of worsening gait, lethargy, and worsening of his tremors. pt states sleepier since last adjustment , sleeps 12 hours /day -- gait on and off per him no new RX as per him now awake and coherent HD CT - mild BL subdurals R >l, minor acute component layering on R, shunt in place, no obstructive hydro seen subdurals appears smaller than prior study 11/02 AP : shunt was recently adjusted and may take time to equilibrate neurologically appeared stable no signs of worsening hydrocephalus or increase subdurals (have actually reduced ) DR BEARD -NEUROSURGEON , is out of town-- he should see him in one week as outpt check UA ensure no UTI etc, labs otherwise look stable DR ALTAMIRANO
[2017-11-08] MEDS: DONEPEZIL HCL 10 MG TABLET (FP) PO SCH (11:23)
[2017-11-08] MEDS: ASPIRIN 81 MG CHEWABLE TABLETS PO SCH (11:23)
[2017-11-08] MEDS: MEMANTINE HCL 5 MG TABLET (UD) PO SCH ×2 (11:25→21:39)
[2017-11-08] MEDS: clonazePAM 0.5 MG TABLET PO SCH (11:25)
[2017-11-08] MEDS: ESCITALOPRAM OXALATE 10 MG TABLET (FP) PO SCH (11:25)
[2017-11-08] MEDS: PANTOPRAZOLE 40 MG TABLET (FP) PO SCH (11:25)
[2017-11-08] MEDS: FEBUXOSTAT 40 MG TAB PO SCH (11:26)
[2017-11-08] MEDS: MULTIVITAMINS (DAILY MVI) TABLET (FP) PO SCH (11:26)
[2017-11-08] MEDS: ASCORBIC ACID 250 MG TABLET (FP) PO SCH (11:26)
[2017-11-08] MEDS ORDERED: clonazePAM 0.5 MG TABLET ONE (11:30)
--- NOTE | 2017-11-08 12:42 | CON.PULM ---
Consult Consult Specialty:: PULM/CCM/SLEEP Referred by:: VALARIE Reason for Consultation:: OSAS / Hypercapnia - History of Present Illness Chief Complaint: Increasing tremors / gait disturbance History of Present Illness: 87 M,NPH, S/P CORSET FITTER shunt several months ago, HTN, CAD, HLD, Dementia, OA, gout, 1 kidney, and recurrent UTI. Apparently his VPS was recently adjusted and the family noted a change in his clinical condition from that time. He has apparently been sleeping 12 hours per day. He thinks he snores, but does not know if he has been observed to have apneas. Admitted via the ER due to 1 week of worsening gait, lethargy, and worsening tremors. Of note, patient is awake and alert, but is a poor historian and reports he feels OK. No fever or chills. No significant cough or hemoptysis. Denies SOB or CP. 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, Other (hydrocephalus) Cardio/Vascular: Yes: CAD, HTN, Hyperlipdemia Renal/: Yes: Renal Inusuff, UTI, Other (PKD) Rheumatology: Yes: Gout - Alcohol/Substance Use Hx Alcohol Use: No - Smoking History Smoking history: Former smoker Have you smoked in the past 12 months: No If you are a former smoker, when did you quit?: 1966 - Social History Usual Living Arrangement: With Spouse Home Medications - Allergies Allergies/Adverse Reactions: Allergies Allergy/AdvReac Type Severity Reaction Status Date / Time No Known Allergies Allergy Verified 11/07/17 23:18 - Home Medications Home Medications: Ambulatory Orders Aspirin [ASA -] 81 mg PO DAILY 04/05/17 Donepezil HCl [Aricept -] 10 mg PO DAILY 04/05/17 Escitalopram Oxalate [Lexapro -] 10 mg PO DAILY 04/05/17 hydrALAZINE HCL [Apresoline -] 10 mg PO BID 04/05/17 Acetaminophen [Tylenol .Regular Strength -] 650 mg PO Q6H PRN tablet 04/15/17 Amino Acids/Protein Hydrolys [Prosource No Carb Liquid Pkt] 30 ml PO BID@0800, 1730 packet 04/15/17 Ascorbic Acid [Vitamin C -] 250 mg PO DAILY tablet 04/15/17 Multivitamins [Multivit ([facility] Formulary)] 1 tab PO DAILY tab 04/15/17 Pantoprazole Sodium [Protonix -] 40 mg PO DAILY tablet.ec 04/15/17 Rosuvastatin [Crestor -] 20 mg PO HS tablet 04/15/17 Tamsulosin HCl [Flomax -] 0.4 mg PO DAILY@0830 cap.er.24h 04/15/17 Febuxostat [Uloric] 40 mg PO DAILY 06/18/17 Memantine HCl [Namenda -] 5 mg PO BID 06/18/17 Mirabegron [Myrbetriq] 25 mg PO DAILY 06/18/17 Albuterol 0.083% Nebulizer Connie [Ventolin 0.083% Nebulizer Soln -] 1 amp NEB Q6H PRN amp 06/22/17 Nystatin/Triamcinolone Top Cr [Mycolog II -] 1 applic TP BID #90 applic Olanzapine [Zyprexa -] 5 mg PO HS tablet 06/22/17 clonazePAM [Klonopin -] 0.5 mg PO DAILY tablet MDD 1/2 TAB 06/22/17 Acetaminophen [Tylenol .Regular Strength -] 650 mg PO Q6H PRN tablet 09/17/17 Nebivolol [Bystolic -] 5 mg PO DAILY tab 09/17/17 Amoxicillin - [Amoxicillin 250mg Capsule -] 250 mg PO BID #14 capsule 11/06/17 Methyl Salicylate/Menthol Oint [Analgesic [place] -] 1 applic TP BID applic Review of Systems - Review of Systems Constitutional: reports: Malaise. denies: Chills, Fever, Night Sweats Eyes: reports: No Symptoms HENT: reports: No Symptoms Neck: reports: No Symptoms Cardiovascular: denies: Chest Pain, Edema, Palpitations, Shortness of Breath Respiratory: reports: Snoring. denies: Cough, Hemoptysis, Orthopnea, SOB, SOB on Exertion, Wheezing Gastrointestinal: reports: No Symptoms Genitourinary: reports: No Symptoms Breasts: reports: No Symptoms Reported Musculoskeletal: reports: No Symptoms Integumentary: reports: No Symptoms Neurological: reports: Incoordination, Tremors, Unsteady Gait. denies: Seizure Endocrine: reports: No Symptoms Hematology/Lymphatic: reports: No Symptoms Psychiatric: reports: No Symptoms Physical Exam Vital Sings: Vital Signs Temperature 98.3 F 11/08/17 06:09 Pulse Rate 48 L 11/08/17 06:09 Respiratory Rate 14 11/08/17 06:09 Blood Pressure 166/76 11/08/17 06:09 O2 Sat by Pulse Oximetry (%) 95 11/08/17 06:09 Constitutional: Yes: Well Nourished, No Distress Eyes: Yes: Conjunctiva Clear, EOM Intact HENT: Yes: Normocephalic Neck: Yes: Supple, Trachea Midline Cardiovascular: Yes: Regular Rate and Rhythm Respiratory: Yes: Diminished. No: Accessory Muscle Use, Rales, Rhonchi, SOB, Stridor, Tachypnea, Wheezes ...Inspection: Yes: WNL ...Clubbing: No Gastrointestinal: Yes: Normal Bowel Sounds, Soft Renal/: Yes: WNL Breast(s): Yes: WNL Musculoskeletal: Yes: WNL Extremities: Yes: WNL Edema: No Peripheral Pulses WNL: Yes Integumentary: Yes: WNL Neurological: Yes: Alert, Oriented ...Motor Strength: WNL Psychiatric: Yes: Alert, Oriented Labs: CBC, BMP 11/08/17 05:55 11/08/17 05:55 ABG Results ABG pH 7.31 (7.35-7.45) L 11/08/17 08:45 ABG pCO2 at Pt Temp 44.4 mmHg (35-45) 11/08/17 08:45 ABG pO2 at Pt Temp 77.4 mmHg (68-100) 11/08/17 08:45 ABG HCO3 21.6 meq/L (22-26) L 11/08/17 08:45 ABG O2 Sat (Measured) 95.3 % (90-98.9) 11/08/17 08:45 ABG O2 Content 15.8 % vol (15-22) 11/08/17 08:45 ABG Base Excess -4.1 meq/l (-2-2) L 11/08/17 08:45 Imaging - Results Cat Scan: Report Reviewed, Image Reviewed Problem List - Problems (1) Hypercapnia Code(s): R06.89 - OTHER ABNORMALITIES OF BREATHING (2) Normal pressure hydrocephalus Code(s): G91.2 - (IDIOPATHIC) NORMAL PRESSURE HYDROCEPHALUS (3) GARRISON (acute kidney injury) Code(s): N17.9 - ACUTE KIDNEY FAILURE, UNSPECIFIED (4) CKD (chronic kidney disease) Code(s): N18.9 - CHRONIC KIDNEY DISEASE, UNSPECIFIED (5) Dementia Code(s): F03.90 - UNSPECIFIED DEMENTIA WITHOUT BEHAVIORAL DISTURBANCE (6) Diabetes Code(s): E11.9 - TYPE 2 DIABETES MELLITUS WITHOUT COMPLICATIONS (7) Hypertension Code(s): I10 - ESSENTIAL (PRIMARY) HYPERTENSION Qualifiers: (8) Subdural hygroma Code(s): D18.1 - LYMPHANGIOMA, ANY SITE (9) Unsteady gait Code(s): R26.81 - UNSTEADINESS ON FEET (10) Bradycardia Code(s): R00.1 - BRADYCARDIA, UNSPECIFIED Assessment/Plan Will order a sleep apnea screen to R/O OSAS Supplemental O2 as needed Neuro evaluation noted Fall precautions Check CXR Aspiration precautions Noted hypercpania, will order ABG in AM to ensure improvement. Can repeat if increased lethargy/AMS. No need for NIPPV at this time VTE prophylaxis Will follow Thank you. Dr Palma
--- NOTE | 2017-11-08 13:32 | CON.CARD ---
Consult Consult Specialty:: Cardiology Referred by:: Dr. Garcia Reason for Consultation:: bradycardia - History of Present Illness Chief Complaint: Lethargy History of Present Illness: Patient is an 87 year old male with a PMHx of Normal Pressure Hydrocephalus (BRICK CATCHER shunt several months ago and BRICK CATCHER shunt adjusted 2 weeks), HTN, HLD, CAD s/p CABG 10 years ago, Dementia, OA, gout, one functioning kidney who was brought by his family for increasing lethary and worsening gait with AMS and tremors. Patient is poor historian and most information obtained by his who reports he was sleeping most of the day yesterday, which is unusual for him. Otherwise, patients reports he's had no shortness of breath, chest pain, palpitations , dizziness, fever, chills. In the ED patient was noted to have Bradycardia with HR's in the high 40's to 50 's. 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: Dementia, Other (hydrocephalus) Cardio/Vascular: Yes: CAD, HTN, Hyperlipdemia Renal/: Yes: Renal Inusuff, UTI, Other (PKD) Rheumatology: Yes: Gout - Past Surgical History Additional Surgical History: CABG (10 YEARS AGO) - Alcohol/Substance Use Hx Alcohol Use: No - Smoking History Smoking history: Former smoker Have you smoked in the past 12 months: No If you are a former smoker, when did you quit?: 1966 - Social History Usual Living Arrangement: With Spouse Home Medications - Allergies Allergies/Adverse Reactions: Allergies Allergy/AdvReac Type Severity Reaction Status Date / Time No Known Allergies Allergy Verified 11/07/17 23:18 - Home Medications Home Medications: Ambulatory Orders Aspirin [ASA -] 81 mg PO DAILY 04/05/17 Donepezil HCl [Aricept -] 10 mg PO DAILY 04/05/17 Escitalopram Oxalate [Lexapro -] 10 mg PO DAILY 04/05/17 hydrALAZINE HCL [Apresoline -] 10 mg PO BID 04/05/17 Acetaminophen [Tylenol .Regular Strength -] 650 mg PO Q6H PRN tablet 04/15/17 Amino Acids/Protein Hydrolys [Prosource No Carb Liquid Pkt] 30 ml PO BID@0800, 1730 packet 04/15/17 Ascorbic Acid [Vitamin C -] 250 mg PO DAILY tablet 04/15/17 Multivitamins [Multivit ([facility])] 1 tab PO DAILY tab 04/15/17 Pantoprazole Sodium [Protonix -] 40 mg PO DAILY tablet.ec 04/15/17 Rosuvastatin [Crestor -] 20 mg PO HS tablet 04/15/17 Tamsulosin HCl [Flomax -] 0.4 mg PO DAILY@0830 cap.er.24h 04/15/17 Febuxostat [Uloric] 40 mg PO DAILY 06/18/17 Memantine HCl [Namenda -] 5 mg PO BID 06/18/17 Mirabegron [Myrbetriq] 25 mg PO DAILY 06/18/17 Albuterol 0.083% Nebulizer Connie [Ventolin 0.083% Nebulizer Soln -] 1 amp NEB Q6H PRN amp 06/22/17 Nystatin/Triamcinolone Top Cr [Mycolog II -] 1 applic TP BID #90 applic Olanzapine [Zyprexa -] 5 mg PO HS tablet 06/22/17 clonazePAM [Klonopin -] 0.5 mg PO DAILY tablet MDD 1/2 TAB 06/22/17 Acetaminophen [Tylenol .Regular Strength -] 650 mg PO Q6H PRN tablet 09/17/17 Nebivolol [Bystolic -] 5 mg PO DAILY tab 09/17/17 Amoxicillin - [Amoxicillin 250mg Capsule -] 250 mg PO BID #14 capsule 11/06/17 Methyl Salicylate/Menthol Oint [Analgesic [place] -] 1 applic TP BID applic Review of Systems Unable to obtain ROS, reason: Clinical condition Vital Signs: Vital Signs Temperature 98.3 F 11/08/17 06:09 Pulse Rate 48 L 11/08/17 06:09 Respiratory Rate 14 11/08/17 06:09 Blood Pressure 166/76 11/08/17 06:09 O2 Sat by Pulse Oximetry (%) 95 11/08/17 06:09 Constitutional: Yes: No Distress, Calm Respiratory: Yes: WNL, Regular, CTA Bilaterally Gastrointestinal: Yes: WNL, Normal Bowel Sounds, Soft Cardiovascular: Yes: Bradycardia JVD: No Carotid Bruit: No Heart Sounds: Yes: S1, S2 Edema: LLE: Trace, RLE: Trace Neurological: Yes: Alert, Confusion - Other Data Labs, Other Data: CBC, BMP 11/08/17 05:55 11/08/17 05:55 INR, PTT INR 1.02 (0.83-1.09) 11/07/17 23:55 Imaging - Results X-ray: Report Reviewed, Image Reviewed EKG: Report Reviewed, Image Reviewed Assessment/Plan Patient is an 87 year old male with a PMHx of Normal Pressure Hydrocephalus (BRICK CATCHER shunt placed several months ago and adjusted two weeks ago), HTN, HLD, CAD s/p CABG (10 years ago), Dementia, OA, gout, 1 functioning kidney who was brought in for worsening Lethargy, AMS, tremors and gait. Patient was found to have bradycardia. Bradycardia -EKG reviewed: bradycardia 47 BPM with RBBB -However, patient has had previous admissions with similar heart rate likely representing a baseline rate -Currently on Bystolic which might be causing the bradycardia. Would Discontinue and switch to a Calcium channel wing -Last echo done 03/2017 and revealed mild aortic thickening, regional wall motion abnormalities that cannot be excluded, normal EF, moderate to severe mitral valve thickening. CAD s/p CABG (10 years ago) -Resume ASA and statin Worsening Gait/Lethargy/AMS s/p BRICK CATCHER shunt adjustment -Manage as per primary team/Neurosurgeon/Neurologist
[2017-11-08] MEDS: HEPARIN NA (PORCINE) 5,000 UNITS/ML 1ML VIAL SQ SCH ×2 (14:13→21:39)
[2017-11-08 14:40] LABS: URINE APPEARANCE CLOUDY; URINE BILIRUBIN NEGATIVE (<2.0 mg/dL); URINE COLOR YELLOW; URINE GLUCOSE (UA) NEGATIVE (NEGATIVE); URINE KETONE NEGATIVE (NEGATIVE); URINE NITRITE NEGATIVE (NEGATIVE); URINE UROBILINOGEN NEGATIVE mg/dL (0.2-1.0)
[2017-11-08 14:45] LABS: URINE LEUK ESTERASE 2+ (NEGATIVE); URINE PROTEIN 2+ (NEGATIVE)
[2017-11-08 14:48] LABS: YEAST FEW
--- NOTE | 2017-11-08 15:30 | CON.CARD ---
Consult Consult Specialty:: Consult Reason for Consultation:: Bradycardia - History of Present Illness Chief Complaint: Change in ms History of Present Illness: This is an 87 year old male with a PMHx of Normal Pressure Hydrocephalus (CAPTAIN WAITER/WAITRESS shunt several months ago and CAPTAIN WAITER/WAITRESS shunt adjusted 2 weeks), HTN, HLD, CAD s/p CABG 10 years ago, Dementia, OA, gout, one functioning kidney who was brought by his family for increasing lethary and worsening gait with AMS and tremors. In the ED patient was noted to have Bradycardia with HR's in the high 40's to 50 's. No report of syncope. 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: Dementia, Other (hydrocephalus) Cardio/Vascular: Yes: CAD, HTN, Hyperlipdemia Renal/: Yes: Renal Inusuff, UTI, Other (PKD) Rheumatology: Yes: Gout - Past Surgical History Additional Surgical History: CABG (10 YEARS AGO) - Alcohol/Substance Use Hx Alcohol Use: No - Smoking History Smoking history: Former smoker Have you smoked in the past 12 months: No If you are a former smoker, when did you quit?: 1967 - Social History Usual Living Arrangement: With Spouse Home Medications - Allergies Allergies/Adverse Reactions: Allergies Allergy/AdvReac Type Severity Reaction Status Date / Time No Known Allergies Allergy Verified 11/07/17 23:18 - Home Medications Home Medications: Ambulatory Orders Aspirin [ASA -] 81 mg PO DAILY 04/05/17 Donepezil HCl [Aricept -] 10 mg PO DAILY 04/05/17 Escitalopram Oxalate [Lexapro -] 10 mg PO DAILY 04/05/17 hydrALAZINE HCL [Apresoline -] 10 mg PO BID 04/05/17 Acetaminophen [Tylenol .Regular Strength -] 650 mg PO Q6H PRN tablet 04/15/17 Amino Acids/Protein Hydrolys [Prosource No Carb Liquid Pkt] 30 ml PO BID@0800, 1730 packet 04/15/17 Ascorbic Acid [Vitamin C -] 250 mg PO DAILY tablet 04/15/17 Multivitamins [Multivit ([facility])] 1 tab PO DAILY tab 04/15/17 Pantoprazole Sodium [Protonix -] 40 mg PO DAILY tablet.ec 04/15/17 Rosuvastatin [Crestor -] 20 mg PO HS tablet 04/15/17 Tamsulosin HCl [Flomax -] 0.4 mg PO DAILY@0830 cap.er.24h 04/15/17 Febuxostat [Uloric] 40 mg PO DAILY 06/18/17 Memantine HCl [Namenda -] 5 mg PO BID 06/18/17 Mirabegron [Myrbetriq] 25 mg PO DAILY 06/18/17 Albuterol 0.083% Nebulizer Connie [Ventolin 0.083% Nebulizer Soln -] 1 amp NEB Q6H PRN amp 06/22/17 Nystatin/Triamcinolone Top Cr [Mycolog II -] 1 applic TP BID #90 applic Olanzapine [Zyprexa -] 5 mg PO HS tablet 06/22/17 clonazePAM [Klonopin -] 0.5 mg PO DAILY tablet MDD 03/27 TAB 06/22/17 Acetaminophen [Tylenol .Regular Strength -] 650 mg PO Q6H PRN tablet 09/17/17 Nebivolol [Bystolic -] 5 mg PO DAILY tab 09/17/17 Amoxicillin - [Amoxicillin 250mg Capsule -] 250 mg PO BID #14 capsule 11/06/17 Methyl Salicylate/Menthol Oint [Analgesic [place] -] 1 applic TP BID applic Review of Systems Findings/Remarks: As per HPI Vital Signs: Vital Signs Temperature 98.3 F 11/08/17 06:09 Pulse Rate 48 L 11/08/17 06:09 Respiratory Rate 14 11/08/17 06:09 Blood Pressure 166/76 11/08/17 06:09 O2 Sat by Pulse Oximetry (%) 95 11/08/17 06:09 Constitutional: Yes: No Distress HENT: Yes: WNL Neck: Yes: WNL Respiratory: Yes: CTA Bilaterally Gastrointestinal: Yes: Normal Bowel Sounds Cardiovascular: Yes: Regular Rate and Rhythm, Bradycardia (NL S1S2 No [facility]) Edema: LLE: Trace, RLE: Trace Neurological: Yes: Lethargy (Slightly Mildly demented) - Other Data Labs, Other Data: CBC, BMP 11/08/17 05:55 11/08/17 05:55 INR, PTT INR 1.02 (0.83-1.09) 11/07/17 23:55 Assessment/Plan Patient is an 87 year old male with a PMHx of Normal Pressure Hydrocephalus (CAPTAIN WAITER/WAITRESS shunt placed several months ago and adjusted two weeks ago), HTN, HLD, CAD s/p CABG (10 years ago), Dementia, OA, gout, 1 functioning kidney who was brought in for worsening Lethargy, AMS, tremors and gait. Patient was found to have bradycardia. No syncope. Bradycardia -EKG reviewed: bradycardia 47 BPM with RBBB, which is baseline Would D/C'd Bystolic which might be causing the bradycardia BP 148/56 mmHg Would add a low dose Ca++ wing such as amlodipine 2.5 mg Continue hydralazine Last echo done 03/2017 and revealed mild aortic thikcening, regional wall motion abnormalities that cannot be excluded, normal EF, moderate to severe mitral valve thickening. CAD s/p CABG (10 years ago) -Resume ASA and statin Worsening Gait/Lethargy/AMS s/p CAPTAIN WAITER/WAITRESS shunt adjustment -Manage as per primary team/Neurosurgeon/Neurologist
--- NOTE | 2017-11-08 17:16 | CONSULT ---
Consult Consult Specialty:: Nephrology Reason for Consultation:: CKD - History of Present Illness Chief Complaint: change in mental status History of Present Illness: Please see H and P from last admission. Pt was recently discharged from the hospital. His says she took him home and could not wake him up. He responds to verbal stimuli and answers questions. 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) - Alcohol/Substance Use Hx Alcohol Use: No - Smoking History Smoking history: Former smoker Have you smoked in the past 12 months: No If you are a former smoker, when did you quit?: 1966 - Social History Usual Living Arrangement: With Spouse Home Medications - Allergies Allergies/Adverse Reactions: Allergies Allergy/AdvReac Type Severity Reaction Status Date / Time No Known Allergies Allergy Verified 11/07/17 23:18 - Home Medications Home Medications: Ambulatory Orders Aspirin [ASA -] 81 mg PO DAILY 04/05/17 Donepezil HCl [Aricept -] 10 mg PO DAILY 04/05/17 Escitalopram Oxalate [Lexapro -] 10 mg PO DAILY 04/05/17 hydrALAZINE HCL [Apresoline -] 10 mg PO BID 04/05/17 Acetaminophen [Tylenol .Regular Strength -] 650 mg PO Q6H PRN tablet 04/15/17 Amino Acids/Protein Hydrolys [Prosource No Carb Liquid Pkt] 30 ml PO BID@0800, 1730 packet 04/15/17 Ascorbic Acid [Vitamin C -] 250 mg PO DAILY tablet 04/15/17 Multivitamins [Multivit ([facility] Formul[facility])] 1 tab PO DAILY tab 04/15/17 Pantoprazole Sodium [Protonix -] 40 mg PO DAILY tablet.ec 04/15/17 Rosuvastatin [Crestor -] 20 mg PO HS tablet 04/15/17 Tamsulosin HCl [Flomax -] 0.4 mg PO DAILY@0830 cap.er.24h 04/15/17 Febuxostat [Uloric] 40 mg PO DAILY 06/18/17 Memantine HCl [Namenda -] 5 mg PO BID 06/18/17 Mirabegron [Myrbetriq] 25 mg PO DAILY 06/18/17 Albuterol 0.083% Nebulizer Connie [Ventolin 0.083% Nebulizer Soln -] 1 amp NEB Q6H PRN amp 06/22/17 Nystatin/Triamcinolone Top Cr [Mycolog II -] 1 applic TP BID #90 applic Olanzapine [Zyprexa -] 5 mg PO HS tablet 06/22/17 clonazePAM [Klonopin -] 0.5 mg PO DAILY tablet MDD 1/2 TAB 06/22/17 Acetaminophen [Tylenol .Regular Strength -] 650 mg PO Q6H PRN tablet 09/17/17 Nebivolol [Bystolic -] 5 mg PO DAILY tab 09/17/17 Amoxicillin - [Amoxicillin 250mg Capsule -] 250 mg PO BID #14 capsule 11/06/17 Methyl Salicylate/Menthol Oint [Analgesic [place] -] 1 applic TP BID applic Review of Systems - Review of Systems Constitutional: reports: No Symptoms Eyes: reports: No Symptoms HENT: reports: No Symptoms Neck: reports: No Symptoms Cardiovascular: reports: No Symptoms Respiratory: reports: No Symptoms Gastrointestinal: reports: No Symptoms Genitourinary: reports: No Symptoms Musculoskeletal: reports: No Symptoms Integumentary: reports: No Symptoms Neurological: reports: Change in LOC Endocrine: reports: No Symptoms Hematology/Lymphatic: reports: No Symptoms Psychiatric: reports: No Symptoms Physical Exam Vital Signs: Vital Signs Temperature 97.8 F 11/08/17 16:56 Pulse Rate 50 L 11/08/17 16:56 Respiratory Rate 20 11/08/17 16:56 Blood Pressure 147/62 11/08/17 16:56 O2 Sat by Pulse Oximetry (%) 96 11/08/17 09:26 Constitutional: Yes: Calm Eyes: Yes: Conjunctiva Clear HENT: Yes: Atraumatic Neck: Yes: Supple Cardiovascular: Yes: S1, S2 Respiratory: Yes: CTA Bilaterally Gastrointestinal: Yes: Soft, Abdomen, Obese Renal/: Yes: Incontinence Musculoskeletal: Yes: WNL Edema: No Neurological: Yes: Oriented Labs: CBC, BMP 11/08/17 05:55 11/08/17 05:55 Imaging - Results Chest X-ray: Report Reviewed Cat Scan: Report Reviewed Assessment/Plan Current Medications Generic Name Dose Route Start Last Admin Trade Name Freq PRN Reason Stop Dose Admin Acetaminophen 650 mg 11/08/17 01:27 Tylenol - PO Q6H PRN PAIN LEVEL 1-5 Albuterol Sulfate 1 amp 11/08/17 01:27 Ventolin 0.083% Nebulizer Soln - NEB Q6H PRN SHORT OF BREATH/WHEEZING Ascorbic Acid 250 mg 11/08/17 10:00 11/08/17 11:26 Vitamin C - PO 250 mg DAILY MITCH Administration Aspirin 81 mg 11/08/17 10:00 11/08/17 11:23 Asa - PO 81 mg DAILY MITCH Administration Clonazepam 0.5 mg 11/08/17 10:00 11/08/17 11:25 Klonopin - PO 0.5 mg DAILY MITCH Administration Donepezil HCl 10 mg 11/08/17 10:00 11/08/17 11:23 Aricept - PO 10 mg DAILY MITCH Administration Escitalopram Oxalate 10 mg 11/08/17 10:00 11/08/17 11:25 Lexapro - PO 10 mg DAILY MITCH Administration Febuxostat 40 mg 11/08/17 10:00 11/08/17 11:26 Uloric - PO 40 mg DAILY MITCH Administration Heparin Sodium (Porcine) 5,000 unit 11/08/17 14:00 11/08/17 14:13 Heparin - SQ 5,000 unit TID MITCH Administration Hydralazine HCl 10 mg 11/08/17 02:00 11/08/17 11:22 Apresoline - PO 10 mg BID MITCH Administration Memantine 5 mg 11/08/17 10:00 11/08/17 11:25 Namenda - PO 5 mg BID MITCH Administration Multivitamins/Minerals/Vitamin C 1 tab 11/08/17 10:00 11/08/17 11:26 Tab-A-Vit - PO 1 tab DAILY MITCH Administration Non-Formulary Medication 25 mg 11/08/17 10:00 Mirabegron [Myrbetriq] PO DAILY MITCH Olanzapine 5 mg 11/08/17 22:00 Zyprexa - PO HS MITCH Pantoprazole Sodium 40 mg 11/08/17 10:00 11/08/17 11:25 Protonix - PO 40 mg DAILY MITCH Administration Rosuvastatin Calcium 20 mg 11/08/17 22:00 Crestor - PO HS MITCH Tamsulosin HCl 0.4 mg 11/08/17 08:30 11/08/17 09:26 Flomax - PO 0.4 mg DAILY@0830 MITCH Administration Impression 1. CKD 2. PKD 3. change in mental status 4. HTN 5. weakness 6. Hyperkalemia 7. prostate cancer 8. dementia 9. hyperlipidemia 10. GARRISON 11. 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
[2017-11-08] MEDS: OLANZapine 5 MG TABLET PO SCH (21:38)
[2017-11-08] MEDS: ROSUVASTATIN CA 20 MG TABLET (FP) PO SCH (21:39)
[2017-11-09] MEDS: HEPARIN NA (PORCINE) 5,000 UNITS/ML 1ML VIAL SQ SCH ×3 (06:03→21:20)
[2017-11-09] MEDS: TAMSULOSIN HCL 0.4 MG CAP.ER.24H (FP) PO SCH (08:01)
--- NOTE | 2017-11-09 08:06 | PN ---
Progress Note, Physician - Current Medication List Current Medications: Active Medications Acetaminophen (Tylenol -) 650 mg PO Q6H PRN PRN Reason: PAIN LEVEL 1-5 Albuterol Sulfate (Ventolin 0.083% Nebulizer Soln -) 1 amp NEB Q6H PRN PRN Reason: SHORT OF BREATH/WHEEZING Ascorbic Acid (Vitamin C -) 250 mg PO DAILY [facility] Last Admin: 11/08/17 11:26 Dose: 250 mg Aspirin (Asa -) 81 mg PO DAILY [facility] Last Admin: 11/08/17 11:23 Dose: 81 mg Clonazepam (Klonopin -) 0.5 mg PO DAILY [facility] Last Admin: 11/08/17 11:25 Dose: 0.5 mg Donepezil HCl (Aricept -) 10 mg PO DAILY [facility] Last Admin: 11/08/17 11:23 Dose: 10 mg Escitalopram Oxalate (Lexapro -) 10 mg PO DAILY [facility] Last Admin: 11/08/17 11:25 Dose: 10 mg Febuxostat (Uloric -) 40 mg PO DAILY [facility] Last Admin: 11/08/17 11:26 Dose: 40 mg Heparin Sodium (Porcine) (Heparin -) 5,000 unit SQ TID [facility] Last Admin: 11/09/17 06:03 Dose: 5,000 unit Hydralazine HCl (Apresoline -) 10 mg PO BID [facility] Last Admin: 11/08/17 21:38 Dose: 10 mg Memantine (Namenda -) 5 mg PO BID [facility] Last Admin: 11/08/17 21:39 Dose: 5 mg Multivitamins/Minerals/Vitamin C (Tab-A-Vit -) 1 tab PO DAILY [facility] Last Admin: 11/08/17 11:26 Dose: 1 tab Non-Formulary Medication (Mirabegron [Myrbetriq]) 25 mg PO DAILY [facility] Olanzapine (Zyprexa -) 5 mg PO HS [facility] Last Admin: 11/08/17 21:38 Dose: 5 mg Pantoprazole Sodium (Protonix -) 40 mg PO DAILY [facility] Last Admin: 11/08/17 11:25 Dose: 40 mg Rosuvastatin Calcium (Crestor -) 20 mg PO HS [facility] Last Admin: 11/08/17 21:39 Dose: 20 mg Tamsulosin HCl (Flomax -) 0.4 mg PO DAILY@0830 [facility] Last Admin: 11/09/17 08:01 Dose: 0.4 mg - Objective Vital Signs: Vital Signs Temperature 97.4 F L 11/09/17 06:00 Pulse Rate 51 L 11/09/17 06:00 Respiratory Rate 18 11/09/17 06:00 Blood Pressure 166/56 11/09/17 06:00 O2 Sat by Pulse Oximetry (%) 95 11/08/17 20:37 Cardiovascular: Yes: S1, S2 Respiratory: Yes: Regular, CTA Bilaterally Gastrointestinal: Yes: Normal Bowel Sounds, Soft. No: Tenderness Neurological: Yes: Alert Labs: CBC, BMP 11/08/17 05:55 11/08/17 05:55 INR, PTT INR 1.02 (0.83-1.09) 11/07/17 23:55 Problem List - Problems (1) Weak Assessment/Plan: #Worsening gait/tremors: possibly 2/2 NPH, could be a malfunction of WATER RIGHTS SPECIALIST shunt, but cannot rule out other causes yet. Patient has had previous admission for similar chief complaint in the past -head CT negative for any acute pathology or acute obstructive hydrocephalus -neurology consult Dr. Recinos for possible adjustment Code(s): R53.1 - WEAKNESS (2) Bradycardia Assessment/Plan: -Monitor -Cardio noted -Hold BB Code(s): R00.1 - BRADYCARDIA, UNSPECIFIED (3) Diabetes Assessment/Plan: bgm with coverage Code(s): E11.9 - TYPE 2 DIABETES MELLITUS WITHOUT COMPLICATIONS (4) Hypertension Assessment/Plan: -monitor -Increase hydralazine 25 bid Code(s): I10 - ESSENTIAL (PRIMARY) HYPERTENSION Qualifiers:
[2017-11-09] MEDS: MULTIVITAMINS (DAILY MVI) TABLET (FP) PO SCH (09:28)
[2017-11-09] MEDS: hydrALAZINE HCL 10 MG TABLET PO SCH (09:28)
[2017-11-09] MEDS: PANTOPRAZOLE 40 MG TABLET (FP) PO SCH (09:28)
[2017-11-09] MEDS: ASCORBIC ACID 250 MG TABLET (FP) PO SCH (09:28)
[2017-11-09] MEDS: FEBUXOSTAT 40 MG TAB PO SCH (09:29)
[2017-11-09] MEDS: MEMANTINE HCL 5 MG TABLET (UD) PO SCH ×2 (09:29→21:20)
[2017-11-09] MEDS: ESCITALOPRAM OXALATE 10 MG TABLET (FP) PO SCH (09:29)
[2017-11-09] MEDS: ASPIRIN 81 MG CHEWABLE TABLETS PO SCH (09:29)
[2017-11-09] MEDS: DONEPEZIL HCL 10 MG TABLET (FP) PO SCH (09:29)
[2017-11-09] MEDS: clonazePAM 0.5 MG TABLET PO SCH (09:31)
--- NOTE | 2017-11-09 09:36 | PN ---
Progress Note (short form) - Note Progress Note: PULMONARY AWAKE/ALERT ORIENTED ANSWERS ALL QUESTIONS APPROPRIATELY ANICTERIC CLEAR B/L LUNG LANDEROS S1S2 BS+ NO CALF TENDERNESS/EDEMA LABS/ABG/IMAGES/MEDS/CONSULTS REVIEWED MILD HYPOXEMIA ON R/A WITH NL AA GRADIENT IMPLIES HYPOVENTILATION - Problems (1) Hypercapnia Code(s): R06.89 - OTHER ABNORMALITIES OF BREATHING (2) Normal pressure hydrocephalus Code(s): G91.2 - (IDIOPATHIC) NORMAL PRESSURE HYDROCEPHALUS (3) GARRISON (acute kidney injury) Code(s): N17.9 - ACUTE KIDNEY FAILURE, UNSPECIFIED (4) CKD (chronic kidney disease) Code(s): N18.9 - CHRONIC KIDNEY DISEASE, UNSPECIFIED (5) Dementia Code(s): F03.90 - UNSPECIFIED DEMENTIA WITHOUT BEHAVIORAL DISTURBANCE (6) Diabetes Code(s): E11.9 - TYPE 2 DIABETES MELLITUS WITHOUT COMPLICATIONS (7) Hypertension Code(s): I10 - ESSENTIAL (PRIMARY) HYPERTENSION Qualifiers: (8) Subdural hygroma Code(s): D18.1 - LYMPHANGIOMA, ANY SITE (9) Unsteady gait Code(s): R26.81 - UNSTEADINESS ON FEET (10) Bradycardia Code(s): R00.1 - BRADYCARDIA, UNSPECIFIED Assessment/Plan Check sleep apnea screen to R/O [facility]AS Supplemental O2 as needed Neuro evaluation noted Fall precautions Aspiration precautions VTE prophylaxis Will follow Srikanth ROCA MD
[2017-11-09] MEDS ORDERED: hydrALAZINE HCL 10 MG TABLET PO SCH (11:53)
[2017-11-09 12:59] LABS: URINE APPEARANCE SLCLOUDY; URINE BILIRUBIN NEGATIVE (<2.0 mg/dL); URINE COLOR YELLOW; URINE GLUCOSE (UA) NEGATIVE (NEGATIVE); URINE KETONE NEGATIVE (NEGATIVE); URINE NITRITE NEGATIVE (NEGATIVE); URINE UROBILINOGEN NEGATIVE mg/dL (0.2-1.0)
[2017-11-09 13:48] LABS: URINE LEUK ESTERASE 3+ (NEGATIVE); URINE PROTEIN 2+ (NEGATIVE)
--- NOTE | 2017-11-09 15:40 | PN ---
Progress Note, Physician History of Present Illness: Pt seen and examined at bedside. No new complaints. He is able to answer questions. - Current Medication List Current Medications: Active Medications Acetaminophen (Tylenol -) 650 mg PO Q6H PRN PRN Reason: PAIN LEVEL 1-5 Albuterol Sulfate (Ventolin 0.083% Nebulizer Soln -) 1 amp NEB Q6H PRN PRN Reason: SHORT OF BREATH/WHEEZING Ascorbic Acid (Vitamin C -) 250 mg PO DAILY [facility] Last Admin: 11/09/17 09:28 Dose: 250 mg Aspirin (Asa -) 81 mg PO DAILY [facility] Last Admin: 11/09/17 09:29 Dose: 81 mg Bacitracin (Bacitracin -) 1 applic TP BID [facility] Clonazepam (Klonopin -) 0.5 mg PO DAILY [facility] Last Admin: 11/09/17 09:31 Dose: 0.5 mg Donepezil HCl (Aricept -) 10 mg PO DAILY [facility] Last Admin: 11/09/17 09:29 Dose: 10 mg Escitalopram Oxalate (Lexapro -) 10 mg PO DAILY [facility] Last Admin: 11/09/17 09:29 Dose: 10 mg Febuxostat (Uloric -) 40 mg PO DAILY [facility] Last Admin: 11/09/17 09:29 Dose: 40 mg Heparin Sodium (Porcine) (Heparin -) 5,000 unit SQ TID [facility] Last Admin: 11/09/17 13:20 Dose: 5,000 unit Hydralazine HCl (Apresoline -) 25 mg PO BID [facility] Memantine (Namenda -) 5 mg PO BID [facility] Last Admin: 11/09/17 09:29 Dose: 5 mg Multivitamins/Minerals/Vitamin C (Tab-A-Vit -) 1 tab PO DAILY [facility] Last Admin: 11/09/17 09:28 Dose: 1 tab Non-Formulary Medication (Mirabegron [Myrbetriq]) 25 mg PO DAILY [facility] Olanzapine (Zyprexa -) 5 mg PO HS [facility] Last Admin: 11/08/17 21:38 Dose: 5 mg Pantoprazole Sodium (Protonix -) 40 mg PO DAILY [facility] Last Admin: 11/09/17 09:28 Dose: 40 mg Rosuvastatin Calcium (Crestor -) 20 mg PO HS [facility] Last Admin: 11/08/17 21:39 Dose: 20 mg Tamsulosin HCl (Flomax -) 0.4 mg PO DAILY@0830 [facility] Last Admin: 11/09/17 08:01 Dose: 0.4 mg - Objective Vital Signs: Vital Signs Temperature 98.0 F 11/09/17 13:23 Pulse Rate 54 L 11/09/17 13:23 Respiratory Rate 18 11/09/17 13:23 Blood Pressure 130/57 11/09/17 13:23 O2 Sat by Pulse Oximetry (%) 92 L 11/09/17 09:00 Constitutional: Yes: Calm Eyes: Yes: Conjunctiva Clear HENT: Yes: Atraumatic Neck: Yes: Supple Cardiovascular: Yes: S1, S2 Respiratory: Yes: CTA Bilaterally Gastrointestinal: Yes: Soft, Abdomen, Obese Genitourinary: Yes: WNL Musculoskeletal: Yes: Muscle Weakness Neurological: Yes: Oriented, Pre-Existing Deficit Labs: CBC, BMP 11/08/17 05:55 11/08/17 05:55 INR, PTT INR 1.02 (0.83-1.09) 11/07/17 23:55 Assessment/Plan Current Medications Generic Name Dose Route Start Last Admin Trade Name Freq PRN Reason Stop Dose Admin Acetaminophen 650 mg 11/08/17 01:27 Tylenol - PO Q6H PRN PAIN LEVEL 1-5 Albuterol Sulfate 1 amp 11/08/17 01:27 Ventolin 0.083% Nebulizer Soln - NEB Q6H PRN SHORT OF BREATH/WHEEZING Ascorbic Acid 250 mg 11/08/17 10:00 11/09/17 09:28 Vitamin C - PO 250 mg DAILY [facility] Administration Aspirin 81 mg 11/08/17 10:00 11/09/17 09:29 Asa - PO 81 mg DAILY [facility] Administration Bacitracin 1 applic 11/09/17 22:00 Bacitracin - TP BID [facility] Clonazepam 0.5 mg 11/08/17 10:00 11/09/17 09:31 Klonopin - PO 0.5 mg DAILY [facility] Administration Donepezil HCl 10 mg 11/08/17 10:00 11/09/17 09:29 Aricept - PO 10 mg DAILY [facility] Administration Escitalopram Oxalate 10 mg 11/08/17 10:00 11/09/17 09:29 Lexapro - PO 10 mg DAILY [facility] Administration Febuxostat 40 mg 11/08/17 10:00 11/09/17 09:29 Uloric - PO 40 mg DAILY [facility] Administration Heparin Sodium (Porcine) 5,000 unit 11/08/17 14:00 11/09/17 13:20 Heparin - SQ 5,000 unit TID [facility] Administration Hydralazine HCl 25 mg 11/09/17 11:57 Apresoline - PO BID [facility] Memantine 5 mg 11/08/17 10:00 11/09/17 09:29 Namenda - PO 5 mg BID [facility] Administration Multivitamins/Minerals/Vitamin C 1 tab 11/08/17 10:00 11/09/17 09:28 Tab-A-Vit - PO 1 tab DAILY [facility] Administration Non-Formulary Medication 25 mg 11/08/17 10:00 Mirabegron [Myrbetriq] PO DAILY [facility] Olanzapine 5 mg 11/08/17 22:00 11/08/17 21:38 Zyprexa - PO 5 mg HS [facility] Administration Pantoprazole Sodium 40 mg 11/08/17 10:00 11/09/17 09:28 Protonix - PO 40 mg DAILY [facility] Administration Rosuvastatin Calcium 20 mg 11/08/17 22:00 11/08/17 21:39 Crestor - PO 20 mg HS [facility] Administration Tamsulosin HCl 0.4 mg 11/08/17 08:30 11/09/17 08:01 Flomax - PO 0.4 mg DAILY@0830 [facility] Administration Impression 1. CKD 2. PKD 3. change in mental status 4. HTN 5. weakness 6. Hyperkalemia 7. prostate cancer 8. dementia 9. hyperlipidemia 10. GARRISON 11. 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
[2017-11-09] MEDS ORDERED: PT OWN MED DRAWER 7, Y5N ONE (20:25)
[2017-11-09] MEDS: hydrALAZINE HCL 25 MG TABLET (FP) PO SCH (21:20)
[2017-11-09] MEDS: ROSUVASTATIN CA 20 MG TABLET (FP) PO SCH (21:20)
[2017-11-09] MEDS: OLANZapine 5 MG TABLET PO SCH (21:20)
[2017-11-09] MEDS: BACITRACIN 15 GM TUBE TOPICAL OINTMENT TP SCH (21:29)
[2017-11-10] MEDS: HEPARIN NA (PORCINE) 5,000 UNITS/ML 1ML VIAL SQ SCH ×3 (06:15→21:34)
[2017-11-10] MEDS: TAMSULOSIN HCL 0.4 MG CAP.ER.24H (FP) PO SCH (08:16)
[2017-11-10] MEDS ORDERED: PT OWN MED DRAWER 7, Y5N ONE ×2 (09:13→20:22)
[2017-11-10] MEDS: ESCITALOPRAM OXALATE 10 MG TABLET (FP) PO SCH (09:14)
[2017-11-10] MEDS: ASPIRIN 81 MG CHEWABLE TABLETS PO SCH (09:15)
[2017-11-10] MEDS: hydrALAZINE HCL 25 MG TABLET (FP) PO SCH ×2 (09:15→21:33)
[2017-11-10] MEDS: DONEPEZIL HCL 10 MG TABLET (FP) PO SCH (09:15)
[2017-11-10] MEDS: PANTOPRAZOLE 40 MG TABLET (FP) PO SCH (09:15)
[2017-11-10] MEDS: BACITRACIN 15 GM TUBE TOPICAL OINTMENT TP SCH ×3 (09:15→21:33)
[2017-11-10] MEDS: MULTIVITAMINS (DAILY MVI) TABLET (FP) PO SCH (09:15)
[2017-11-10] MEDS: FEBUXOSTAT 40 MG TAB PO SCH (09:15)
[2017-11-10] MEDS: ASCORBIC ACID 250 MG TABLET (FP) PO SCH (09:15)
[2017-11-10] MEDS: MEMANTINE HCL 5 MG TABLET (UD) PO SCH ×2 (09:15→21:33)
--- NOTE | 2017-11-10 09:21 | PN ---
Progress Note, Physician Chief Complaint: AWAKE ALERT X 2 LETHARGIC ON KLONOPIN AND ZYPREXA SWALLOWING WITH FREQUENT COUGHS - Current Medication List Current Medications: Active Medications Acetaminophen (Tylenol -) 650 mg PO Q6H PRN PRN Reason: PAIN LEVEL 1-5 Albuterol Sulfate (Ventolin 0.083% Nebulizer Soln -) 1 amp NEB Q6H PRN PRN Reason: SHORT OF BREATH/WHEEZING Ascorbic Acid (Vitamin C -) 250 mg PO DAILY [facility] Last Admin: 11/10/17 09:15 Dose: 250 mg Aspirin (Asa -) 81 mg PO DAILY [facility] Last Admin: 11/10/17 09:15 Dose: 81 mg Bacitracin (Bacitracin -) 1 applic TP BID [facility] Last Admin: 11/10/17 09:15 Dose: 1 applic Donepezil HCl (Aricept -) 10 mg PO DAILY [facility] Last Admin: 11/10/17 09:15 Dose: 10 mg Escitalopram Oxalate (Lexapro -) 10 mg PO DAILY [facility] Last Admin: 11/10/17 09:14 Dose: 10 mg Febuxostat (Uloric -) 40 mg PO DAILY [facility] Last Admin: 11/10/17 09:15 Dose: 40 mg Heparin Sodium (Porcine) (Heparin -) 5,000 unit SQ TID [facility] Last Admin: 11/10/17 06:15 Dose: 5,000 unit Hydralazine HCl (Apresoline -) 25 mg PO BID [facility] Last Admin: 11/10/17 09:15 Dose: 25 mg Memantine (Namenda -) 5 mg PO BID [facility] Last Admin: 11/10/17 09:15 Dose: 5 mg Multivitamins/Minerals/Vitamin C (Tab-A-Vit -) 1 tab PO DAILY [facility] Last Admin: 11/10/17 09:15 Dose: 1 tab Non-Formulary Medication (Mirabegron [Myrbetriq]) 25 mg PO DAILY [facility] Olanzapine (Zyprexa -) 5 mg PO [facility] Last Admin: 11/09/17 21:20 Dose: 5 mg Pantoprazole Sodium (Protonix -) 40 mg PO DAILY [facility] Last Admin: 11/10/17 09:15 Dose: 40 mg Rosuvastatin Calcium (Crestor -) 20 mg PO HS [facility] Last Admin: 11/09/17 21:20 Dose: 20 mg Tamsulosin HCl (Flomax -) 0.4 mg PO DAILY@0830 [facility] Last Admin: 11/10/17 08:16 Dose: 0.4 mg - Objective Vital Signs: Vital Signs Temperature 97.8 F 11/10/17 06:14 Pulse Rate 51 L 11/10/17 06:14 Respiratory Rate 20 11/10/17 06:14 Blood Pressure 152/64 11/10/17 06:14 O2 Sat by Pulse Oximetry (%) 94 L 11/09/17 21:00 Constitutional: Yes: Mild Distress Eyes: Yes: WNL HENT: Yes: WNL Neck: Yes: WNL Cardiovascular: Yes: Pulse Irregular Respiratory: Yes: Cough, Other Gastrointestinal: Yes: WNL Genitourinary: Yes: Incontinence Musculoskeletal: Yes: Muscle Weakness Extremities: Yes: Other Edema: No Peripheral Pulses WNL: Yes Integumentary: Yes: Rash, Venous Stasis Changes Wound/Incision: Yes: Clean/Dry Neurological: Yes: Confusion, Pre-Existing Deficit ...Motor Strength: LLE, RLE Psychiatric: Yes: Other Labs: CBC, BMP 11/08/17 05:55 11/08/17 05:55 INR, PTT INR 1.02 (0.83-1.09) 11/07/17 23:55 Problem List - Problems (1) UTI (urinary tract infection) Code(s): N39.0 - URINARY TRACT INFECTION, SITE NOT SPECIFIED (2) Normal pressure hydrocephalus Code(s): G91.2 - (IDIOPATHIC) NORMAL PRESSURE HYDROCEPHALUS (3) Weak Code(s): R53.1 - WEAKNESS (4) GARRISON (acute kidney injury) Code(s): N17.9 - ACUTE KIDNEY FAILURE, UNSPECIFIED (5) Acute metabolic encephalopathy Code(s): G93.41 - METABOLIC ENCEPHALOPATHY (6) Altered mental status Code(s): R41.82 - ALTERED MENTAL STATUS, UNSPECIFIED (7) DVT prophylaxis Code(s): [id number] - (8) Dementia Code(s): F03.90 - UNSPECIFIED DEMENTIA WITHOUT BEHAVIORAL DISTURBANCE (9) Hydronephrosis Code(s): N13.30 - UNSPECIFIED HYDRONEPHROSIS (10) Hyperkalemia Code(s): E87.5 - HYPERKALEMIA (11) Hypertension Code(s): I10 - ESSENTIAL (PRIMARY) HYPERTENSION Qualifiers: (12) Unsteady gait Code(s): R26.81 - UNSTEADINESS ON FEET Assessment/Plan FOLLOW URINE CULTURES REPEAT SWALLOW EVAL WITH COUGH DURING MEALS STOP KLONOPIN REEVALUATE NEED FOR BOTH ARICEPT AND NAMENDA? NEURO F/U PT EVAL OOB TO CHAIR
[2017-11-10 11:29] LABS: ANION GAP 9 (8-16); BLOOD UREA NITROGEN 47 mg/dL (7-18); CALCIUM 8.5 mg/dL (8.5-10.1); CHLORIDE 113 mmol/L (98-107); CO2 23 mmol/L (21-32); GLUCOSE,RANDOM 109 mg/dL (74-106); MAGNESIUM 1.8 mg/dL (1.8-2.4); POTASSIUM 4.7 mmol/L (3.5-5.1); SODIUM 145 mmol/L (136-145)
--- NOTE | 2017-11-10 14:24 | PN ---
Progress Note (short form) - Note Progress Note: Problems 1. CKD 2. PKD 3. change in mental status 4. HTN 5. weakness 6. Hyperkalemia 7. prostate cancer 8. dementia 9. hyperlipidemia 10. GARRISON 11. 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 Current Medications Acetaminophen (Tylenol -) 650 mg PO Q6H PRN PRN Reason: PAIN LEVEL 1-5 Albuterol Sulfate (Ventolin 0.083% Nebulizer Soln -) 1 amp NEB Q6H PRN PRN Reason: SHORT OF BREATH/WHEEZING Ascorbic Acid (Vitamin C -) 250 mg PO DAILY [facility] Last Admin: 11/10/17 09:15 Dose: 250 mg Aspirin (Asa -) 81 mg PO DAILY [facility] Last Admin: 11/10/17 09:15 Dose: 81 mg Bacitracin (Bacitracin -) 1 applic TP BID [facility] Last Admin: 11/10/17 09:21 Dose: Not Given Donepezil HCl (Aricept -) 10 mg PO DAILY [facility] Last Admin: 11/10/17 09:15 Dose: 10 mg Escitalopram Oxalate (Lexapro -) 10 mg PO DAILY [facility] Last Admin: 11/10/17 09:14 Dose: 10 mg Febuxostat (Uloric -) 40 mg PO DAILY [facility] Last Admin: 11/10/17 09:15 Dose: 40 mg Heparin Sodium (Porcine) (Heparin -) 5,000 unit SQ TID [facility] Last Admin: 11/10/17 14:09 Dose: 5,000 unit Hydralazine HCl (Apresoline -) 25 mg PO BID [facility] Last Admin: 11/10/17 09:15 Dose: 25 mg Memantine (Namenda -) 5 mg PO BID [facility] Last Admin: 11/10/17 09:15 Dose: 5 mg Multivitamins/Minerals/Vitamin C (Tab-A-Vit -) 1 tab PO DAILY [facility] Last Admin: 11/10/17 09:15 Dose: 1 tab Non-Formulary Medication (Mirabegron [Myrbetriq]) 25 mg PO DAILY [facility] Olanzapine (Zyprexa -) 5 mg PO HS [facility] Last Admin: 11/09/17 21:20 Dose: 5 mg Pantoprazole Sodium (Protonix -) 40 mg PO DAILY [facility] Last Admin: 11/10/17 09:15 Dose: 40 mg Rosuvastatin Calcium (Crestor -) 20 mg PO HS [facility] Last Admin: 11/09/17 21:20 Dose: 20 mg Tamsulosin HCl (Flomax -) 0.4 mg PO DAILY@0830 [facility] Last Admin: 11/10/17 08:16 Dose: 0.4 mg Last Vital Signs Temp Pulse Resp BP Pulse Ox 97.5 F L 51 L 20 173/69 96 11/10/17 10:00 11/10/17 10:00 11/10/17 10:00 11/10/17 10:00 11/10/17 09:00 CBC, BMP 11/08/17 05:55 11/10/17 10:25 Plan - renal function stable
[2017-11-10] MEDS: OLANZapine 5 MG TABLET PO SCH (21:33)
[2017-11-10] MEDS: ROSUVASTATIN CA 20 MG TABLET (FP) PO SCH (21:33)
[2017-11-11] MEDS: HEPARIN NA (PORCINE) 5,000 UNITS/ML 1ML VIAL SQ SCH ×3 (06:24→22:06)
[2017-11-11] MEDS: hydrALAZINE HCL 25 MG TABLET (FP) PO SCH ×2 (10:38→22:06)
[2017-11-11] MEDS: ESCITALOPRAM OXALATE 10 MG TABLET (FP) PO SCH (10:38)
[2017-11-11] MEDS: MULTIVITAMINS (DAILY MVI) TABLET (FP) PO SCH (10:38)
[2017-11-11] MEDS: ASCORBIC ACID 250 MG TABLET (FP) PO SCH (10:38)
[2017-11-11] MEDS: ASPIRIN 81 MG CHEWABLE TABLETS PO SCH (10:38)
[2017-11-11] MEDS: MEMANTINE HCL 5 MG TABLET (UD) PO SCH ×2 (10:38→22:06)
[2017-11-11] MEDS: FEBUXOSTAT 40 MG TAB PO SCH (10:38)
[2017-11-11] MEDS: PANTOPRAZOLE 40 MG TABLET (FP) PO SCH (10:39)
[2017-11-11] MEDS: TAMSULOSIN HCL 0.4 MG CAP.ER.24H (FP) PO SCH (10:39)
[2017-11-11] MEDS: DONEPEZIL HCL 10 MG TABLET (FP) PO SCH (10:39)
[2017-11-11] MEDS: BACITRACIN 15 GM TUBE TOPICAL OINTMENT TP SCH ×2 (10:40→22:06)
--- NOTE | 2017-11-11 12:16 | PN ---
Progress Note (short form) - Note Progress Note: PULMONARY AWAKE/ALERT ORIENTED ANSWERS ALL QUESTIONS APPROPRIATELY ANICTERIC CLEAR B/L LUNG LANDEROS S1S2 BS+ NO CALF TENDERNESS/EDEMA LABS/ABG/IMAGES/MEDS/CONSULTS REVIEWED MILD HYPOXEMIA ON R/A WITH NL AA GRADIENT IMPLIES HYPOVENTILATION - Problems (1) Hypercapnia Code(s): R06.89 - OTHER ABNORMALITIES OF BREATHING (2) Normal pressure hydrocephalus Code(s): G91.2 - (IDIOPATHIC) NORMAL PRESSURE HYDROCEPHALUS (3) GARRISON (acute kidney injury) Code(s): N17.9 - ACUTE KIDNEY FAILURE, UNSPECIFIED (4) CKD (chronic kidney disease) Code(s): N18.9 - CHRONIC KIDNEY DISEASE, UNSPECIFIED (5) Dementia Code(s): F03.90 - UNSPECIFIED DEMENTIA WITHOUT BEHAVIORAL DISTURBANCE (6) Diabetes Code(s): E11.9 - TYPE 2 DIABETES MELLITUS WITHOUT COMPLICATIONS (7) Hypertension Code(s): I10 - ESSENTIAL (PRIMARY) HYPERTENSION Qualifiers: (8) Subdural hygroma Code(s): D18.1 - LYMPHANGIOMA, ANY SITE (9) Unsteady gait Code(s): R26.81 - UNSTEADINESS ON FEET (10) Bradycardia Code(s): R00.1 - BRADYCARDIA, UNSPECIFIED Assessment/Plan Swallow eval as per PMD Supplemental O2 as needed Neuro evaluation noted Fall precautions Aspiration precautions VTE prophylaxis OOB to chair Srikanth ROCA MD
--- NOTE | 2017-11-11 13:39 | PN ---
Progress Note, Physician - Current Medication List Current Medications: Active Medications Acetaminophen (Tylenol -) 650 mg PO Q6H PRN PRN Reason: PAIN LEVEL 1-5 Albuterol Sulfate (Ventolin 0.083% Nebulizer Soln -) 1 amp NEB Q6H PRN PRN Reason: SHORT OF BREATH/WHEEZING Ascorbic Acid (Vitamin C -) 250 mg PO DAILY [facility] Last Admin: 11/11/17 10:38 Dose: 250 mg Aspirin (Asa -) 81 mg PO DAILY [facility] Last Admin: 11/11/17 10:38 Dose: 81 mg Bacitracin (Bacitracin -) 1 applic TP BID [facility] Last Admin: 11/11/17 10:40 Dose: Not Given Donepezil HCl (Aricept -) 10 mg PO DAILY [facility] Last Admin: 11/11/17 10:39 Dose: 10 mg Escitalopram Oxalate (Lexapro -) 10 mg PO DAILY [facility] Last Admin: 11/11/17 10:38 Dose: 10 mg Febuxostat (Uloric -) 40 mg PO DAILY [facility] Last Admin: 11/11/17 10:38 Dose: 40 mg Heparin Sodium (Porcine) (Heparin -) 5,000 unit SQ TID [facility] Last Admin: 11/11/17 06:24 Dose: 5,000 unit Hydralazine HCl (Apresoline -) 25 mg PO BID [facility] Last Admin: 11/11/17 10:38 Dose: 25 mg Memantine (Namenda -) 5 mg PO BID [facility] Last Admin: 11/11/17 10:38 Dose: 5 mg Multivitamins/Minerals/Vitamin C (Tab-A-Vit -) 1 tab PO DAILY [facility] Last Admin: 11/11/17 10:38 Dose: 1 tab Non-Formulary Medication (Mirabegron [Myrbetriq]) 25 mg PO DAILY [facility] Olanzapine (Zyprexa -) 5 mg PO HS [facility] Last Admin: 11/10/17 21:33 Dose: 5 mg Pantoprazole Sodium (Protonix -) 40 mg PO DAILY [facility] Last Admin: 11/11/17 10:39 Dose: 40 mg Rosuvastatin Calcium (Crestor -) 20 mg PO HS [facility] Last Admin: 11/10/17 21:33 Dose: 20 mg Tamsulosin HCl (Flomax -) 0.4 mg PO DAILY@0830 [facility] Last Admin: 11/11/17 10:39 Dose: 0.4 mg - Objective Vital Signs: Vital Signs Temperature 97 F L 11/11/17 06:26 Pulse Rate 47 L 11/11/17 06:26 Respiratory Rate 20 11/11/17 06:26 Blood Pressure 146/55 11/11/17 06:26 O2 Sat by Pulse Oximetry (%) 95 11/10/17 21:56 Cardiovascular: Yes: S1, S2 Respiratory: Yes: Regular, CTA Bilaterally Gastrointestinal: Yes: Normal Bowel Sounds, Soft. No: Tenderness Labs: CBC, BMP 11/08/17 05:55 11/10/17 10:25 INR, PTT INR 1.02 (0.83-1.09) 11/07/17 23:55 Problem List - Problems (1) Bradycardia Assessment/Plan: -Monitor -Cardio noted -Hold BB Code(s): R00.1 - BRADYCARDIA, UNSPECIFIED (2) Weak Assessment/Plan: #Worsening gait/tremors: possibly 2/2 NPH, could be a malfunction of [employer] shunt, but cannot rule out other causes yet. Patient has had previous admission for similar chief complaint in the past -head CT negative for any acute pathology or acute obstructive hydrocephalus -neurology consult Dr. Recinos for possible adjustment Code(s): R53.1 - WEAKNESS (3) Hypertension Assessment/Plan: -monitor -Increase hydralazine 25 bid Vital Signs Period Temp Pulse Resp BP Sys/Handy Pulse Ox Last 24 Hr 97 F-97.7 F 47-60 18-20 132-154/46-62 95 Code(s): I10 - ESSENTIAL (PRIMARY) HYPERTENSION Qualifiers: (4) Diabetes Assessment/Plan: bgm with coverage Code(s): E11.9 - TYPE 2 DIABETES MELLITUS WITHOUT COMPLICATIONS
--- NOTE | 2017-11-11 17:38 | PN ---
Progress Note (short form) - Note Progress Note: Problems 1. CKD 2. PKD 3. change in mental status 4. HTN 5. weakness 6. Hyperkalemia 7. prostate cancer 8. dementia 9. hyperlipidemia 10. GARRISON 11. 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 g Current Medications Acetaminophen (Tylenol -) 650 mg PO Q6H PRN PRN Reason: PAIN LEVEL 1-5 Albuterol Sulfate (Ventolin 0.083% Nebulizer Soln -) 1 amp NEB Q6H PRN PRN Reason: SHORT OF BREATH/WHEEZING Ascorbic Acid (Vitamin C -) 250 mg PO DAILY [facility] Last Admin: 11/11/17 10:38 Dose: 250 mg Aspirin (Asa -) 81 mg PO DAILY [facility] Last Admin: 11/11/17 10:38 Dose: 81 mg Bacitracin (Bacitracin -) 1 applic TP BID [facility] Last Admin: 11/11/17 10:40 Dose: Not Given Donepezil HCl (Aricept -) 10 mg PO DAILY [facility] Last Admin: 11/11/17 10:39 Dose: 10 mg Escitalopram Oxalate (Lexapro -) 10 mg PO DAILY [facility] Last Admin: 11/11/17 10:38 Dose: 10 mg Febuxostat (Uloric -) 40 mg PO DAILY [facility] Last Admin: 11/11/17 10:38 Dose: 40 mg Heparin Sodium (Porcine) (Heparin -) 5,000 unit SQ TID [facility] Last Admin: 11/11/17 13:40 Dose: 5,000 unit Hydralazine HCl (Apresoline -) 25 mg PO BID [facility] Last Admin: 11/11/17 10:38 Dose: 25 mg Memantine (Namenda -) 5 mg PO BID [facility] Last Admin: 11/11/17 10:38 Dose: 5 mg Multivitamins/Minerals/Vitamin C (Tab-A-Vit -) 1 tab PO DAILY [facility] Last Admin: 11/11/17 10:38 Dose: 1 tab Non-Formulary Medication (Mirabegron [Myrbetriq]) 25 mg PO DAILY [facility] Olanzapine (Zyprexa -) 5 mg PO HS [facility] Last Admin: 11/10/17 21:33 Dose: 5 mg Pantoprazole Sodium (Protonix -) 40 mg PO DAILY [facility] Last Admin: 11/11/17 10:39 Dose: 40 mg Rosuvastatin Calcium (Crestor -) 20 mg PO HS [facility] Last Admin: 11/10/17 21:33 Dose: 20 mg Tamsulosin HCl (Flomax -) 0.4 mg PO DAILY@0830 [facility] Last Admin: 11/11/17 10:39 Dose: 0.4 mg Last Vital Signs Temp Pulse Resp BP Pulse Ox 97.9 F 57 L 18 133/58 95 11/11/17 13:59 11/11/17 13:59 11/11/17 13:59 11/11/17 13:59 11/11/17 09:00 alert in nad no complaints lungs clear heart reg abd soft nontender ext no edema CBC, BMP 11/08/17 05:55 11/10/17 10:25 IMP- improveing renal function Plan - continue to monitor renal function
[2017-11-11] MEDS ORDERED: PT OWN MED DRAWER 7, Y5N ONE (20:39)
[2017-11-11] MEDS: ROSUVASTATIN CA 20 MG TABLET (FP) PO SCH (22:06)
[2017-11-11] MEDS: OLANZapine 5 MG TABLET PO SCH (22:06)
[2017-11-12] MEDS: HEPARIN NA (PORCINE) 5,000 UNITS/ML 1ML VIAL SQ SCH ×2 (05:45→13:41)
[2017-11-12] MEDS: TAMSULOSIN HCL 0.4 MG CAP.ER.24H (FP) PO SCH (07:31)
--- NOTE | 2017-11-12 08:29 | DS ---
Physical Examination Vital Signs: Vital Signs Temperature 98.5 F 11/12/17 06:00 Pulse Rate 57 L 11/12/17 06:00 Respiratory Rate 18 11/12/17 06:00 Blood Pressure 150/65 11/12/17 06:00 O2 Sat by Pulse Oximetry (%) 94 L 11/11/17 22:11 Constitutional: Yes: Mild Distress Eyes: Yes: WNL HENT: Yes: WNL Neck: Yes: WNL Cardiovascular: Yes: WNL Respiratory: Yes: WNL Gastrointestinal: Yes: WNL Musculoskeletal: Yes: Muscle Weakness Extremities: Yes: WNL Edema: No Peripheral Pulses WNL: Yes Integumentary: Yes: WNL Wound/Incision: Yes: Clean/Dry Neurological: Yes: Pre-Existing Deficit, Other ...Motor Strength: LLE, RLE Psychiatric: Yes: WNL Labs: CBC, BMP 11/08/17 05:55 11/10/17 10:25 Discharge Summary Reason For Visit: LETHARGY UNSTEADY GAIT Current Active Problems Hypercapnia (Acute) Normal pressure hydrocephalus (Acute) UTI (urinary tract infection) (Acute) Weak (Acute) Procedures: Principal: CT BRAIN Hospital Course: ADMITTED FOR AMS, HYPERKALEMIA, ARF, TREATED IVF, NEBS, MONITORED ON FLOORS, PT EVAL Condition: Stable - Instructions Diet, Activity, Other Instructions: SEE YOUR PMD IN 2-3 DAYS OOB TO CHAIR AT HOME WITH FALL RISKS DISCUSSED SOFT CHOPPED DIET Referrals: Natalya Rae MD [Primary Care Provider] - Disposition: VNS/HOME HEALTH CARE - Home Medications Comprehensive Discharge Medication List: Ambulatory Orders Aspirin [ASA -] 81 mg PO DAILY 04/05/17 Donepezil HCl [Aricept -] 10 mg PO DAILY 04/05/17 Escitalopram Oxalate [Lexapro -] 10 mg PO DAILY 04/05/17 hydrALAZINE HCL [Apresoline -] 10 mg PO BID 04/05/17 Acetaminophen [Tylenol .Regular Strength -] 650 mg PO Q6H PRN tablet 04/15/17 Amino Acids/Protein Hydrolys [Prosource No Carb Liquid Pkt] 30 ml PO BID@0800, 1730 packet 04/15/17 Ascorbic Acid [Vitamin C -] 250 mg PO DAILY tablet 04/15/17 Multivitamins [Multivit ([facility] Formulary)] 1 tab PO DAILY tab 04/15/17 Pantoprazole Sodium [Protonix -] 40 mg PO DAILY tablet.ec 04/15/17 Rosuvastatin [Crestor -] 20 mg PO HS tablet 04/15/17 Tamsulosin HCl [Flomax -] 0.4 mg PO DAILY@0830 cap.er.24h 04/15/17 Febuxostat [Uloric] 40 mg PO DAILY 06/18/17 Memantine HCl [Namenda -] 5 mg PO BID 06/18/17 Mirabegron [Myrbetriq] 25 mg PO DAILY 06/18/17 Albuterol 0.083% Nebulizer Connie [Ventolin 0.083% Nebulizer Soln -] 1 amp NEB Q6H PRN amp 06/22/17 Nystatin/Triamcinolone Top Cr [Mycolog II -] 1 applic TP BID #90 applic Olanzapine [Zyprexa -] 5 mg PO HS tablet 06/22/17 clonazePAM [Klonopin -] 0.5 mg PO DAILY tablet [facility] 1/2 TAB 06/22/17 Acetaminophen [Tylenol .Regular Strength -] 650 mg PO Q6H PRN tablet 09/17/17 Nebivolol [Bystolic -] 5 mg PO DAILY tab 09/17/17 Amoxicillin - [Amoxicillin 250mg Capsule -] 250 mg PO BID #14 capsule 11/06/17 Methyl Salicylate/Menthol Oint [Analgesic [place] -] 1 applic TP BID applic
[2017-11-12] MEDS ORDERED: PT OWN MED DRAWER 7, Y5N ONE (08:57)
[2017-11-12] MEDS: hydrALAZINE HCL 25 MG TABLET (FP) PO SCH (09:02)
[2017-11-12] MEDS: MEMANTINE HCL 5 MG TABLET (UD) PO SCH (09:02)
[2017-11-12] MEDS: DONEPEZIL HCL 10 MG TABLET (FP) PO SCH (09:02)
[2017-11-12] MEDS: ESCITALOPRAM OXALATE 10 MG TABLET (FP) PO SCH (09:02)
[2017-11-12] MEDS: MULTIVITAMINS (DAILY MVI) TABLET (FP) PO SCH (09:02)
[2017-11-12] MEDS: ASPIRIN 81 MG CHEWABLE TABLETS PO SCH (09:02)
[2017-11-12] MEDS: BACITRACIN 15 GM TUBE TOPICAL OINTMENT TP SCH (09:02)
[2017-11-12] MEDS: PANTOPRAZOLE 40 MG TABLET (FP) PO SCH (09:02)
[2017-11-12] MEDS: ASCORBIC ACID 250 MG TABLET (FP) PO SCH (09:03)
[2017-11-12] MEDS: FEBUXOSTAT 40 MG TAB PO SCH (09:03)
--- NOTE | 2017-11-12 12:09 | PN ---
Progress Note (short form) - Note Progress Note: Resting in NAD on RA. Appears comfortable. No acute events overnight. Intake & Output 11/09/17 11/10/17 11/11/17 11/12/17 23:59 23:59 23:59 23:59 Intake Total 450 550 250 120 Output Total 200 202 Balance 250 550 48 120 Last Vital Signs Temp Pulse Resp BP Pulse Ox 97.6 F 51 L 18 162/75 98 11/12/17 10:00 11/12/17 10:00 11/12/17 10:00 11/12/17 10:00 11/12/17 09:00 Active Medications Acetaminophen (Tylenol -) 650 mg PO Q6H PRN PRN Reason: PAIN LEVEL 1-5 Albuterol Sulfate (Ventolin 0.083% Nebulizer Soln -) 1 amp NEB Q6H PRN PRN Reason: SHORT OF BREATH/WHEEZING Ascorbic Acid (Vitamin C -) [address] [facility] Last Admin: 11/12/17 09:03 Dose: 250 mg Aspirin (Asa -) [address] [facility] Last Admin: 11/12/17 09:02 Dose: 81 mg Bacitracin (Bacitracin -) [address] [facility] Last Admin: 11/12/17 09:02 Dose: Not Given Donepezil HCl (Aricept -) [address] [facility] Last Admin: 11/12/17 09:02 Dose: 10 mg Escitalopram Oxalate (Lexapro -) [address] [facility] Last Admin: 11/12/17 09:02 Dose: 10 mg Febuxostat (Uloric -) [address] [facility] Last Admin: 11/12/17 09:03 Dose: 40 mg Heparin Sodium (Porcine) (Heparin -) 5,[address] [facility] Last Admin: 11/12/17 05:45 Dose: 5,000 unit Hydralazine HCl (Apresoline -) [address] [facility] Last Admin: 11/12/17 09:02 Dose: 25 mg Memantine (Namenda -) [address] [facility] Last Admin: 11/12/17 09:02 Dose: 5 mg Multivitamins/Minerals/Vitamin C (Tab-A-Vit -) [address] [facility] Last Admin: 11/12/17 09:02 Dose: 1 tab Non-Formulary Medication (Mirabegron [Myrbetriq]) [address] [facility] Olanzapine (Zyprexa -) 5 mg PO [facility] Last Admin: 11/11/17 22:06 Dose: 5 mg Pantoprazole Sodium (Protonix -) [address] [facility] Last Admin: 11/12/17 09:02 Dose: 40 mg Rosuvastatin Calcium (Crestor -) 20 mg PO [facility] Last Admin: 11/11/17 22:06 Dose: 20 mg Tamsulosin HCl (Flomax -) 0.4 mg PO DAILY@0830 [facility] Last Admin: 11/12/17 07:31 Dose: 0.4 mg Constitutional: Yes: Well Nourished, No Distress Eyes: Yes: Conjunctiva Clear, EOM Intact HENT: Yes: Normocephalic Neck: Yes: Supple, Trachea Midline Cardiovascular: Yes: Regular Rate and Rhythm Respiratory: Yes: Diminished. No: Accessory Muscle Use, Rales, Rhonchi, SOB, Stridor, Tachypnea, Wheezes ...Inspection: Yes: WNL ...Clubbing: No Gastrointestinal: Yes: Normal Bowel Sounds, Soft Renal/: Yes: WNL Breast(s): Yes: WNL Musculoskeletal: Yes: WNL Extremities: Yes: WNL Edema: No Peripheral Pulses WNL: Yes Integumentary: Yes: WNL Neurological: Yes: Alert, Oriented ...Motor Strength: WNL Psychiatric: Yes: Alert, Oriented Labs: Problem List - Problems (1) Hypercapnia Code(s): R06.89 - OTHER ABNORMALITIES OF BREATHING (2) Normal pressure hydrocephalus Code(s): G91.2 - (IDIOPATHIC) NORMAL PRESSURE HYDROCEPHALUS (3) GARRISON (acute kidney injury) Code(s): N17.9 - ACUTE KIDNEY FAILURE, UNSPECIFIED (4) CKD (chronic kidney disease) Code(s): N18.9 - CHRONIC KIDNEY DISEASE, UNSPECIFIED (5) Dementia Code(s): F03.90 - UNSPECIFIED DEMENTIA WITHOUT BEHAVIORAL DISTURBANCE (6) Diabetes Code(s): E11.9 - TYPE 2 DIABETES MELLITUS WITHOUT COMPLICATIONS (7) Hypertension Code(s): I10 - ESSENTIAL (PRIMARY) HYPERTENSION Qualifiers: (8) Subdural hygroma Code(s): D18.1 - LYMPHANGIOMA, ANY SITE (9) Unsteady gait Code(s): R26.81 - UNSTEADINESS ON FEET (10) Bradycardia Code(s): R00.1 - BRADYCARDIA, UNSPECIFIED Assessment/Plan Can have formal sleep testing as an outpatient Current management No Pulmonary contraindication for D/C Dr Palma Problem List - Problems (1) Hypercapnia Code(s): R06.89 - OTHER ABNORMALITIES OF BREATHING (2) Normal pressure hydrocephalus Code(s): G91.2 - (IDIOPATHIC) NORMAL PRESSURE HYDROCEPHALUS (3) GARRISON (acute kidney injury) Code(s): N17.9 - ACUTE KIDNEY FAILURE, UNSPECIFIED (4) CKD (chronic kidney disease) Code(s): N18.9 - CHRONIC KIDNEY DISEASE, UNSPECIFIED (5) Dementia Code(s): F03.90 - UNSPECIFIED DEMENTIA WITHOUT BEHAVIORAL DISTURBANCE (6) Diabetes Code(s): E11.9 - TYPE 2 DIABETES MELLITUS WITHOUT COMPLICATIONS (7) Hypertension Code(s): I10 - ESSENTIAL (PRIMARY) HYPERTENSION Qualifiers: (8) Subdural hygroma Code(s): D18.1 - LYMPHANGIOMA, ANY SITE (9) Unsteady gait Code(s): R26.81 - UNSTEADINESS ON FEET (10) Bradycardia Code(s): R00.1 - BRADYCARDIA, UNSPECIFIED
--- NOTE | 2017-11-12 13:24 | PN ---
Progress Note, Physician History of Present Illness: Pt seen and examined at bedside. He is awake and alert. He denies shortness of breath. Mental status is back to baseline. - Current Medication List Current Medications: Active Medications Acetaminophen (Tylenol -) 650 mg PO Q6H PRN PRN Reason: PAIN LEVEL 1-5 Albuterol Sulfate (Ventolin 0.083% Nebulizer Soln -) 1 amp NEB Q6H PRN PRN Reason: SHORT OF BREATH/WHEEZING Ascorbic Acid (Vitamin C -) 250 mg PO DAILY [facility] Last Admin: 11/12/17 09:03 Dose: 250 mg Aspirin (Asa -) 81 mg PO DAILY [facility] Last Admin: 11/12/17 09:02 Dose: 81 mg Bacitracin (Bacitracin -) 1 applic TP BID [facility] Last Admin: 11/12/17 09:02 Dose: Not Given Donepezil HCl (Aricept -) 10 mg PO DAILY [facility] Last Admin: 11/12/17 09:02 Dose: 10 mg Escitalopram Oxalate (Lexapro -) 10 mg PO DAILY [facility] Last Admin: 11/12/17 09:02 Dose: 10 mg Febuxostat (Uloric -) 40 mg PO DAILY [facility] Last Admin: 11/12/17 09:03 Dose: 40 mg Heparin Sodium (Porcine) (Heparin -) 5,000 unit SQ TID [facility] Last Admin: 11/12/17 05:45 Dose: 5,000 unit Hydralazine HCl (Apresoline -) 25 mg PO BID [facility] Last Admin: 11/12/17 09:02 Dose: 25 mg Memantine (Namenda -) 5 mg PO BID [facility] Last Admin: 11/12/17 09:02 Dose: 5 mg Multivitamins/Minerals/Vitamin C (Tab-A-Vit -) 1 tab PO DAILY [facility] Last Admin: 11/12/17 09:02 Dose: 1 tab Non-Formulary Medication (Mirabegron [Myrbetriq]) 25 mg PO DAILY [facility] Olanzapine (Zyprexa -) 5 mg PO HS [facility] Last Admin: 11/11/17 22:06 Dose: 5 mg Pantoprazole Sodium (Protonix -) 40 mg PO DAILY [facility] Last Admin: 11/12/17 09:02 Dose: 40 mg Rosuvastatin Calcium (Crestor -) 20 mg PO HS [facility] Last Admin: 11/11/17 22:06 Dose: 20 mg Tamsulosin HCl (Flomax -) 0.4 mg PO DAILY@0830 [facility] Last Admin: 11/12/17 07:31 Dose: 0.4 mg - Objective Vital Signs: Vital Signs Temperature 97.6 F 11/12/17 10:00 Pulse Rate 51 L 11/12/17 10:00 Respiratory Rate 18 11/12/17 10:00 Blood Pressure 162/75 11/12/17 10:00 O2 Sat by Pulse Oximetry (%) 98 11/12/17 09:00 Constitutional: Yes: Calm Eyes: Yes: Conjunctiva Clear HENT: Yes: Atraumatic Neck: Yes: Supple Cardiovascular: Yes: S1, S2 Respiratory: Yes: CTA Bilaterally Gastrointestinal: Yes: Normal Bowel Sounds, Soft, Abdomen, Obese Genitourinary: Yes: WNL Musculoskeletal: Yes: WNL Edema: No Neurological: Yes: Oriented, Pre-Existing Deficit Psychiatric: Yes: Oriented Labs: CBC, BMP 11/08/17 05:55 11/10/17 10:25 INR, PTT INR 1.02 (0.83-1.09) 11/07/17 23:55 Assessment/Plan Current Medications Generic Name Dose Route Start Last Admin Trade Name Freq PRN Reason Stop Dose Admin Acetaminophen 650 mg 11/08/17 01:27 Tylenol - PO Q6H PRN PAIN LEVEL 1-5 Albuterol Sulfate 1 amp 11/08/17 01:27 Ventolin 0.083% Nebulizer Soln - NEB Q6H PRN SHORT OF BREATH/WHEEZING Ascorbic Acid 250 mg 11/08/17 10:00 11/09/17 09:28 Vitamin C - PO 250 mg DAILY [facility] Administration Aspirin 81 mg 11/08/17 10:00 11/09/17 09:29 Asa - PO 81 mg DAILY [facility] Administration Bacitracin 1 applic 11/09/17 22:00 Bacitracin - TP BID [facility] Clonazepam 0.5 mg 11/08/17 10:00 11/09/17 09:31 Klonopin - PO 0.5 mg DAILY [facility] Administration Donepezil HCl 10 mg 11/08/17 10:00 11/09/17 09:29 Aricept - PO 10 mg DAILY [facility] Administration Escitalopram Oxalate 10 mg 11/08/17 10:00 11/09/17 09:29 Lexapro - PO 10 mg DAILY [facility] Administration Febuxostat 40 mg 11/08/17 10:00 11/09/17 09:29 Uloric - PO 40 mg DAILY [facility] Administration Heparin Sodium (Porcine) 5,000 unit 11/08/17 14:00 11/09/17 13:20 Heparin - SQ 5,000 unit TID [facility] Administration Hydralazine HCl 25 mg 11/09/17 11:57 Apresoline - PO BID [facility] Memantine 5 mg 11/08/17 10:00 11/09/17 09:29 Namenda - PO 5 mg BID [facility] Administration Multivitamins/Minerals/Vitamin C 1 tab 11/08/17 10:00 11/09/17 09:28 Tab-A-Vit - PO 1 tab DAILY [facility] Administration Non-Formulary Medication 25 mg 11/08/17 10:00 Mirabegron [Myrbetriq] PO DAILY [facility] Olanzapine 5 mg 11/08/17 22:00 11/08/17 21:38 Zyprexa - PO 5 mg HS [facility] Administration Pantoprazole Sodium 40 mg 11/08/17 10:00 11/09/17 09:28 Protonix - PO 40 mg DAILY [facility] Administration Rosuvastatin Calcium 20 mg 11/08/17 22:00 11/08/17 21:39 Crestor - PO 20 mg HS [facility] Administration Tamsulosin HCl 0.4 mg 11/08/17 08:30 11/09/17 08:01 Flomax - PO 0.4 mg DAILY@0830 [facility] Administration Impression 1. CKD 2. PKD 3. change in mental status 4. HTN 5. weakness 6. Hyperkalemia 7. prostate cancer 8. dementia 9. hyperlipidemia 10. GARRISON 11. 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
[2017-11-12 14:28] VITALS: BP 157/65; PULSE 59; TEMP 97.7
--- NOTE | 2017-11-12 14:28 | CONSULT ---
Consult - text type - Consultation Consultation Note: NEUROSURGERY CONSULTATION Patient well known to me with history of NPH and multiple medical problems. I treated him with a [employer] shunt with significant improvement in ambulation and mentation. The patient presented in August with mental deterioration and bilateral subdural collections were noted. The patient presented to me in the office recently and I adjusted his pressure setting up (0.5 to 1.0). Patient admitted after further mental status changes were noted and he had UTI with hyperkalemia. CT showed significant improvement in the subdural collections and after hospitalization, his renal function and mental status returned to baseline. At this point, there is no acute Neurosurgical intervention indicated. I agree with plans for discharge by medical team.
== END 2017-11-12 14:55 | disposition home health service (06) ==
LOC: JER 22:23 → JERBED 11-08 01:31 → J7W 11-08 15:50
PROVIDERS: ADMIT Internal Medicine; ATTEND Family Medicine
PROC: 3E013GC Introduction of Other Therapeutic Substance into Subcutaneous Tissue, Percutaneous Approach (ICD-10-PCS; principal; 2017-11-08)
DX: R53.83 Other fatigue (principal); R53.1 Weakness; R00.1 Bradycardia, unspecified; R26.81 Unsteadiness on feet; R41.82 Altered mental status, unspecified; E11.22 Type 2 diabetes mellitus with diabetic chronic kidney disease; I12.9 Hypertensive chronic kidney disease with stage 1 through stage 4 chronic kidney disease, or unspecified chronic kidney disease; N18.9 Chronic kidney disease, unspecified; I25.10 Atherosclerotic heart disease of native coronary artery without angina pectoris; E78.5 Hyperlipidemia, unspecified; F03.90 Unspecified dementia, unspecified severity, without behavioral disturbance, psychotic disturbance, mood disturbance, and anxiety; M19.90 Unspecified osteoarthritis, unspecified site; M10.9 Gout, unspecified; Q60.0 Renal agenesis, unilateral; G91.2 (Idiopathic) normal pressure hydrocephalus; R71.8 Other abnormality of red blood cells; N17.9 Acute kidney failure, unspecified; G93.41 Metabolic encephalopathy; D18.1 Lymphangioma, any site; R06.89 Other abnormalities of breathing; E87.5 Hyperkalemia; G96.0 Cerebrospinal fluid leak; N13.39 Other hydronephrosis; N39.0 Urinary tract infection, site not specified; Z98.2 Presence of cerebrospinal fluid drainage device; Z95.1 Presence of aortocoronary bypass graft; Z87.891 Personal history of nicotine dependence; Z85.46 Personal history of malignant neoplasm of prostate; Z79.82 Long term (current) use of aspirin
CPT/HCPCS: 36415; 36600; 70450-TC; 71045-TC-FY; 80048; 80053; 81003; 81015; 82803; 83735; 84100; 85025; 85027; 85610; 86850; 86900; 86901; 87086; 87186; 93005; 93010; 96372; 97116-GP; 97161-GP; 99284-25; G0378; J1644

== ENCOUNTER 2018-03-23 18:32 | Inpatient (IN) | payer OTHER ==
--- NOTE | 2018-03-23 20:27 | PDOC ---
Attending Attestation - HPI HPI: 03/23/18 22:14 The patient is a 87 year old male with a significant PMH of dementia, hypertension, CAD, CKA, polycystic kidney disease, colon ca, and GOUT who presents to the emergency department with lightheadedness for the past several days. As per the patient's at bedside, the patient has fallen about 9 times in the past few days secondary to lightheadedness. The patient's states that he hell today and hit his head prompting him to come to the ED. He reports associated headache.The patient reports episodes of incontinence, chills , shake and tremors, and weakness in his legs. It is noted that the patient had a colonoscopy recently but no results as of yet. The patient denies any other symptoms. He denies any fever, chills, nausea, vomiting or other urinary symptoms. He denies any chest pain, shortness of breath , headache or dizziness. The patient denies any other complaints. - Physicial Exam PE: 03/23/18 22:14 GENERAL: Awake, alert, and fully oriented, in no acute distress HEAD: No signs of trauma EYES: PERRLA, EOMI, sclera anicteric, conjunctiva clear ENT: Auricles normal inspection, hearing grossly normal, nares patent, oropharynx clear without exudates. Moist mucosa NECK: Normal ROM, supple, no lymphadenopathy, JVD, or masses LUNGS: Breath sounds equal, clear to auscultation bilaterally. No wheezes, and no crackles HEART: Regular rate and rhythm, normal S1 and S2, no murmurs, rubs or gallops ABDOMEN: Soft, nontender, normoactive bowel sounds. No guarding, no rebound. No masses EXTREMITIES: Normal range of motion, no edema. No clubbing or cyanosis. No cords, erythema, or tenderness NEUROLOGICAL: Cranial nerves II through XII grossly intact. Normal speech, normal gait SKIN: Warm, Dry, normal turgor, no rashes or lesions noted. Documentation prepared by Reyna Francis, acting as medical reception for Cristina Bell MD. <Reyna Francis - Last Filed: 03/23/18 22:42> - Resident Resident Name: Robbin Reza - ED Attending Attestation I have performed the following: I have examined & evaluated the patient, The case was reviewed & discussed with the resident, I agree w/resident's findings & plan - Medical Decision Making 03/23/18 22:43 Shunt on the brain CT appears to be working; lateral ventricles are equal and brain parenchyma is normal. 03/23/18 22:46 Patient Name: RUBY MCADAMS THIS IS A PRELIMINARY REPORT FROM [facility] [employer] DATE OF SERVICE: 2018-03-23 22:04:56 IMAGES: 146 Exam: CT head without IV contrast. Clinical indication:Headache and neck pain. Comparison:None available. Technique: Axial unenhanced CT images from the skull base through the brain were obtained followed by coronal and sagital reformats. Findings: There is a right parietal RN [employer]ICAL QUALITY shunt with the tip located within the right lateral ventricle. Otherwise, the visualized bony structures are unremarkable. The visualized paranasal sinuses and mastoid air cells are clear. There is no evidence of intra-or extra-axial hemorrhage. There is a small hypodensity layering within the anterior nondependent portion of the right lateral ventricle which could represent fat or gas. There may be a tiny amount within the anterior aspect of the left lateral ventricle as well. The bilateral lateral ventricles are mildly prominent, but there are no prior studies available to assess change in status of hydrocephalus. Otherwise, the ventricles and basilar cisterns are unremarkable. There is a mild periventricular hypodensities which could represent mild chronic small vessel ischemic changes versus transependymal flow of CSF in the setting of hydrocephalus. There is no evidence of intracranial mass, acute infarct, or midline shift. Impression: 1. Small hypodensities layering within the anterior nondependent portions of the bilateral lateral ventricles which could represent fat or gas. If clinically indicated further evaluation with an MRI of the brain could be performed. Gas would indicate possible infectious etiology. Fat would indicate possible rupture of fat-containing neoplasm such as a teratoma, although there is no obvious indication of a neoplasm on these images. 2. Right-sided RN [employer]INICAL QUALITY shunt in good position. 3. Mild periventricular hypodensities which could represent mild chronic small vessel ischemic changes versus transependymal flow of CSF in the setting of hydrocephalus. 4. Otherwise, negative unenhanced CT of the brain. 03/24/18 00:10 Pt has a + troponin; elevated CPK and CKMB (though initial CK index is not high) 03/24/18 03:25 RUBY MCADAMS Addendum: Prior CTs dated November 02 and November 07, 2017 have now been made available for review. The prior reports are not available. The following changes are made to the attached report: 1. There is no interval change in the small hypodensities layering within the anterior nondependent portions of the bilateral lateral ventricles suggesting fat. 2. No change in the appearance of the bilateral lateral ventricles. 3. Interval resolution of right-sided extra-axial hematoma. Number for mild periventricular hypodensities which likely represent chronic small vessel ischemic changes. One or more of the following dose reduction techniques were used: automated exposure control, adjustment of the mA and/or kV according to patient size, use of iterative reconstructive technique. THIS DOCUMENT HAS BEEN ELECTRONICALLY SIGNED 03/24/18 20:43 We dont have a neurosurgeon admissions gate attendant this weekend; I called [facility], because hospitalist refused to take the patient without a neurosurgeon's input. [facility]'s neurosurg tells me that with no interval vhange there is nothing to do for the patient <Cristina Bell - Last Filed: 03/24/18 20:51>
--- NOTE | 2018-03-23 21:31 | PDOC ---
History of Present Illness - General Chief Complaint: Lightheaded Stated Complaint: DIZZINESS, FALL Time Seen by Provider: 03/23/18 19:42 History Source: Patient, Spouse Exam Limitations: Dementia - History of Present Illness Timing/Duration: getting worse Severity: moderate Modifying Factors: improves with: immobilization, rest Associated Symptoms: reports: diaphoresis, fever/chills (chills, no fever ), headaches, syncope, weakness. denies: chest pain, cough, loss of appetite, nausea/vomiting, rash, seizure, shortness of breath Aspirin Received prior to arrival: Yes: 81 mg x 1 Beta Hussain Taken at Home(Core Measure): Yes Past History - Travel Traveled outside of the country in the last 30 days: No Close contact w/someone who was outside of country & ill: No - Past Medical History Allergies/Adverse Reactions: Allergies Allergy/AdvReac Type Severity Reaction Status Date / Time No Known Allergies Allergy Verified 11/07/17 23:18 Home Medications: Ambulatory Orders Aspirin [ASA -] 81 mg PO DAILY 04/05/17 Donepezil HCl [Aricept -] 10 mg PO DAILY 04/05/17 Escitalopram Oxalate [Lexapro -] 10 mg PO DAILY 04/05/17 hydrALAZINE HCL [Apresoline -] 10 mg PO BID 04/05/17 Acetaminophen [Tylenol .Regular Strength -] 650 mg PO Q6H PRN tablet 04/15/17 Amino Acids/Protein Hydrolys [Prosource No Carb Liquid Pkt] 30 ml PO BID@0800, 1730 packet 04/15/17 Ascorbic Acid [Vitamin C -] 250 mg PO DAILY tablet 04/15/17 Multivitamins [Multivit ([facility] Formulary)] 1 tab PO DAILY tab 04/15/17 Pantoprazole Sodium [Protonix -] 40 mg PO DAILY tablet.ec 04/15/17 Rosuvastatin [Crestor -] 20 mg PO HS tablet 04/15/17 Tamsulosin HCl [Flomax -] 0.4 mg PO DAILY@0830 cap.er.24h 04/15/17 Febuxostat [Uloric] 40 mg PO DAILY 06/18/17 Memantine HCl [Namenda -] 5 mg PO BID 06/18/17 Mirabegron [Myrbetriq] 25 mg PO DAILY 06/18/17 Albuterol 0.083% Nebulizer Connie [Ventolin 0.083% Nebulizer Soln -] 1 amp NEB Q6H PRN amp 06/22/17 Nystatin/Triamcinolone Top Cr [Mycolog II -] 1 applic TP BID #90 applic Olanzapine [Zyprexa -] 5 mg PO HS tablet 06/22/17 clonazePAM [Klonopin -] 0.5 mg PO DAILY tablet [facility] 1/2 TAB 06/22/17 Acetaminophen [Tylenol .Regular Strength -] 650 mg PO Q6H PRN tablet 09/17/17 Nebivolol [Bystolic -] 5 mg PO DAILY tab 09/17/17 Amoxicillin - [Amoxicillin 250mg Capsule -] 250 mg PO BID #14 capsule 11/06/17 Methyl Salicylate/Menthol Oint [Analgesic [place] -] 1 applic TP BID applic Anemia: No Asthma: No Cancer: Yes (- prostate) Cardiac Disorders: Yes CVA: No COPD: No CHF: No DVT: No Dementia: Yes Diabetes: No GI Disorders: No Disorders: Yes (PKD ) HTN: Yes Hypercholesterolemia: Yes Liver Disease: No Psychiatric Problems: Yes (depression) Seizures: No Thyroid Disease: No Other medical history: CKD, PKD, NPH, OA, Gout - Surgical History Abdominal Surgery: No Appendectomy: No Cardiac Surgery: Yes (open heart sx for valve replacement 2005) Cholecystectomy: No Lung Surgery: No Neurologic Surgery: No Orthopedic Surgery: Yes - Suicide/Smoking/Psychosocial Hx Smoking History: Never smoked Have you smoked in the past 12 months: No If you are a former smoker, when did you quit?: 1967 Information on smoking cessation initiated: No Hx Alcohol Use: No Drug/Substance Use Hx: No Substance Use Type: None Hx Substance Use Treatment: No Review of Systems - Review of Systems Able to Perform ROS?: Yes Is the patient limited Amharic proficient: No Constitutional: Yes: Symptoms Reported, Chills, Diaphoresis. No: Fever HEENTM: Yes: Throat Pain, Difficulty Swallowing. No: Recent change in vision, Hearing Loss Respiratory: No: Symptoms reported, Cough, Shortness of Breath, SOB with Exertion, SOB at Rest Cardiac (ROS): Yes: Symptoms Reported, Edema, Lightheadedness, Syncope. No: Chest Pain, Palpitations, Chest Tightness ABD/GI: Yes: Symptoms Reported, Difficulty Swallowing, Poor Fluid Intake. No: Abdominal Distended, Abd. Pain w/ defecation, Blood Streaked Bowels, Constipated , Diarrhea, Nausea, Rectal Bleeding, Vomiting : Yes: Symptoms Reported, Frequency, Urgency. No: Burning, Dysuria, Discharge , Flank Pain, Hematuria, Incontinence, Pain Musculoskeletal: No: Symptoms Reported Integumentary: Yes: Symptoms Reported, Sweating Neurological: Yes: Symptoms reported, Headache, Pre-Existing Deficit (unsteady gait but worsening ), Tremors, Weakness, Unsteady Gait, Ataxia, Dizziness. No: Numbness, Paresthesia, Seizure, Tingling Psychiatric: Yes: Anxiety, Depression Endocrine: Yes: Increased Thirst *Physical Exam - Vital Signs Last Vital Signs Temp Pulse Resp BP Pulse Ox 98.0 F 66 16 142/56 L 100 03/23/18 18:32 03/23/18 18:32 03/23/18 18:32 03/23/18 18:32 03/23/18 18:32 - Physical Exam General Appearance: Yes: Nourished, Appropriately Dressed, Apparent Distress HEENT: positive: LOLA, Normal Voice, Symmetrical, Pharynx Normal, Hearing Grossly Normal. negative: Tonsillar Exudate, Tonsillar Erythema, Nasal Congestion, Hearing Decreased, Excessive drooling Neck: positive: Supple. negative: Carotid bruit Respiratory/Chest: positive: Lungs Clear. negative: Chest Tender, Normal Breath Sounds, Respiratory Distress, Accessory Muscle Use, Labored Respiration, Crackles, Rales, Wheezing Cardiovascular: positive: Regular Rhythm, Regular Rate, S1, S2, Edema, JVD Vascular Pulses: Dorsalis-Pedis (R): 2+, Doralis-Pedis (L): 2+ Gastrointestinal/Abdominal: positive: Tender, Tenderness Male Genitalia: positive: normal genitalia. negative: normal prostate ( enlarged ), discharge Rectal Exam: positive: heme negative stool, normal exam, normal rectal tone, hemorrhoids (external hemorrhoids, no internal felt ). negative: NL Prostate ( diffusely enlarged, no nodularity appreciated ), melena, heme positive stool Extremity: positive: Normal Capillary Refill, Normal Inspection, Pedal Edema, Swelling. negative: Calf Tenderness, Erythema, Inflammation Neurologic: positive: Alert, Normal Mood/Affect, Normal Response, Respond to painful stimul, Responsive, Confused Moderate Sedation - Procedure Monitoring Vital Signs: Procedure Monitoring Vital Signs Temperature 98.0 F 03/23/18 18:32 Pulse Rate 66 03/23/18 18:32 Respiratory Rate 16 03/23/18 18:32 Blood Pressure 142/56 L 03/23/18 18:32 O2 Sat by Pulse Oximetry (%) 100 03/23/18 18:32 ED Treatment Course - LABORATORY CBC & Chemistry Diagram: 03/23/18 22:11 03/23/18 22:11 - ADDITIONAL ORDERS Additional order review: Laboratory Results 03/23/18 20:00 Stool Occult Blood Negative - RADIOLOGY Radiology Studies Ordered: Category Date Time Status CHEST X-RAY PORTABLE* [RAD] Stat Radiology 03/23/18 21:19 Ordered *DC/Admit/Observation/Transfer Diagnosis at time of Disposition: Syncope - Discharge Dispostion Decision to Admit order: Yes - Referrals Referrals: Natalya Rae MD [Primary Care Provider] - - Patient Instructions - Post Discharge Activity
[2018-03-23] MEDS ORDERED: ACETAMINOPHEN 500 MG TABLET (FP) PO ONE (22:28)
[2018-03-23 22:35] LABS: BASO % 0.3 % (0-2.0); EOS % 0.2 % (0-4.5); HEMATOCRIT 34.4 % (35.4-49); HEMOGLOBIN 11.7 GM/dL (11.7-16.9); LYMPH % 14.9 % (8-40); MCH 25.8 pg (25.7-33.7); MCHC 33.8 g/dl (32.0-35.9); MEAN CELL VOLUME 76.3 fl (80-96); MONO % 7.2 % (3.8-10.2); NEUT % 77.4 % (42.8-82.8); PLATELET COUNT 166 K/MM3 (134-434); RBC 4.51 M/mm3 (4.00-5.60); RDW 14.7 % (11.9-15.9); WHITE BLOOD COUNT 12.5 K/mm3 (4.0-10.0)
[2018-03-23] MEDS ORDERED: ACETAMINOPHEN 325 MG TABLET (FP) ONE (23:04)
[2018-03-23 23:16] LABS: URINE APPEARANCE CLEAR; URINE BILIRUBIN NEGATIVE (<2.0 mg/dL); URINE COLOR LTYELLOW; URINE GLUCOSE (UA) NEGATIVE (NEGATIVE); URINE KETONE TRACE (NEGATIVE); URINE LEUK ESTERASE TRACE (NEGATIVE); URINE NITRITE NEGATIVE (NEGATIVE); URINE PROTEIN 2+ (NEGATIVE); URINE UROBILINOGEN NEGATIVE mg/dL (0.2-1.0)
[2018-03-23 23:19] LABS: ALBUMIN 3.6 g/dl (3.4-5.0); ALK PHOS 72 U/L (45-117); ANION GAP 12 MMOL/L (8-16); BILIRUBIN,TOTAL 0.4 mg/dL (0.2-1); BLOOD UREA NITROGEN 59 mg/dL (7-18); CALCIUM 8.4 mg/dL (8.5-10.1); CHLORIDE 106 mmol/L (98-107); CO2 19 mmol/L (21-32); CREATININE 2.9 mg/dL (0.55-1.3); GLUCOSE,RANDOM 84 mg/dL (74-106); MAGNESIUM 1.8 mg/dL (1.8-2.4); POTASSIUM 4.8 mmol/L (3.5-5.1); SGOT/AST 154 U/L (15-37); SGPT/ALT 40 U/L (13-61); SODIUM 136 mmol/L (136-145); TOT PROT 6.3 g/dl (6.4-8.2)
[2018-03-23 23:24] LABS: EPI CELLS RARE /HPF (FEW); URINE MUCUS RARE
[2018-03-23 23:37] LABS: INR 1.03 (0.83-1.09); PROTHROMBIN TIME (PATIENT) 12.1 SEC (9.7-13.0)
[2018-03-24] MEDS: HEPARIN NA (PORCINE) 5,000 UNITS/ML 1ML VIAL SQ SCH ×2 (00:37→05:51)
--- NOTE | 2018-03-24 01:22 | HP ---
CHIEF COMPLAINT: unsteady gait, falls, sore throat PCP: Dr. 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 Pt says he has not been "feeling well" for the past week. c/o fevers, cough, poor appetite, lightheadedness and chills. Has had multiple falls without head trauma, as per patient (who may unreliable due to dementia), he was on the ground for several minutes. As per he fell today and hit his head with possible LOC, prompting ED visit. denies chest pain, headache, vision changes, neck pain, diarrhea or constipation , dysuria, vomiting. ER course was notable for: (1) head CT (2) (3) Recent Travel: none PAST MEDICAL HISTORY: hx of colon cancer, gout, HTN, NPH, CAD, polycystic kidney disease, hx of recurrent UTI. PAST SURGICAL HISTORY: PHYSICAL SECURITY ENGINEER shunt (placed by neurosurgeon Dr. Roca) Social History: Smoking: former Alcohol:denies Drugs: denies Family History: [place] Allergies No Known Allergies Allergy (Verified 11/07/17 23:18) HOME MEDICATIONS: Home Medications Medication Instructions Recorded Aspirin [ASA -] 81 mg PO DAILY 04/05/17 Donepezil HCl [Aricept -] 10 mg PO DAILY 04/05/17 Escitalopram Oxalate [Lexapro -] 10 mg PO DAILY 04/05/17 hydrALAZINE HCL [Apresoline -] 10 mg PO BID 04/05/17 Acetaminophen [Tylenol .Regular 650 mg PO Q6H PRN tablet 04/15/17 Strength -] Amino Acids/Protein Hydrolys 30 ml PO BID@0800,1730 packet 04/15/17 [Prosource No Carb Liquid Pkt] Ascorbic Acid [Vitamin C -] 250 mg PO DAILY tablet 04/15/17 Multivitamins [Multivit ([facility] 1 tab PO DAILY tab 04/15/17 Formulary)] Pantoprazole Sodium [Protonix -] 40 mg PO DAILY tablet.ec 04/15/17 Rosuvastatin [Crestor -] 20 mg PO HS tablet 04/15/17 Tamsulosin HCl [Flomax -] 0.4 mg PO DAILY@0830 cap.er.24h 04/15/17 Febuxostat [Uloric] 40 mg PO DAILY 06/18/17 Memantine HCl [Namenda -] 5 mg PO BID 06/18/17 Mirabegron [Myrbetriq] 25 mg PO DAILY 06/18/17 Albuterol 0.083% Nebulizer Connie 1 amp NEB Q6H PRN amp 06/22/17 [Ventolin 0.083% Nebulizer Soln -] Nystatin/Triamcinolone Top Cr 1 applic TP BID #90 applic 06/22/17 [Mycolog II -] Olanzapine [Zyprexa -] 5 mg PO HS tablet 06/22/17 clonazePAM [Klonopin -] 0.5 mg PO DAILY tablet MDD 1/2 TAB 06/22/17 Acetaminophen [Tylenol .Regular 650 mg PO Q6H PRN tablet 09/17/17 Strength -] Nebivolol [Bystolic -] 5 mg PO DAILY tab 09/17/17 Amoxicillin - [Amoxicillin 250mg 250 mg PO BID #14 capsule 11/06/17 Capsule -] Methyl Salicylate/Menthol Oint 1 applic TP BID applic 11/06/17 [Analgesic Kula -] REVIEW OF SYSTEMS CONSTITUTIONAL: Presents: fever, chills,malaise, loss of appetite, Absent: diaphoresis, generalized weakness, weight change HEENT: Present: throat pain, Absent: rhinorrhea, nasal congestion, throat swelling, difficulty swallowing, mouth swelling, eye pain, visual changes CARDIOVASCULAR: Present: lightheadedness Absent: chest pain, syncope, palpitations, irregular heart rate, , peripheral edema RESPIRATORY: Present: cough, Absent: shortness of breath, dyspnea with exertion, orthopnea, wheezing, stridor, hemoptysis GASTROINTESTINAL: Absent: abdominal pain, abdominal distension, nausea, vomiting, diarrhea, constipation, melena, hematochezia GENITOURINARY: Absent: dysuria, frequency, urgency, hesitancy, hematuria, flank pain MUSCULOSKELETAL: Absent: myalgia, arthralgia, joint swelling, back pain, neck pain SKIN: Absent: rash, itching, pallor HEMATOLOGIC/IMMUNOLOGIC: Absent: easy bleeding, easy bruising, lymphadenopathy, frequent infections ENDOCRINE: Absent: unexplained weight gain, unexplained weight loss, heat intolerance, cold intolerance NEUROLOGIC: Present:dizziness, unsteady gait, Absent: headache, focal weakness or paresthesias, seizure, mental status changes , bowel incontinence PHYSICAL EXAMINATION Vital Signs - 24 hr 03/23/18 18:32 Temperature 98.0 F Pulse Rate 66 Respiratory 16 Rate Blood Pressure 142/56 L O2 Sat by Pulse 100 Oximetry (%) GENERAL: Awake, alert, and oriented to person, place, president, year. not to month. in no acute distress. HEAD: Normal with no signs of trauma. EYES: Pupils equal, round and reactive to light, extraocular movements intact, sclera anicteric, conjunctiva clear. No lid lag. EARS, NOSE, THROAT: Ears normal, nares patent, oropharynx clear without exudates. no orophyarynx erythema. Moist mucous membranes. NECK: Normal range of motion, supple without lymphadenopathy, JVD, or masses. no carotid bruits. LUNGS: Breath sounds equal, clear to auscultation bilaterally. No wheezes, and no crackles. No accessory muscle use. HEART: Regular rate and rhythm, normal S1 and S2 with MIGUEL murmur, ABDOMEN: Soft, nontender, not distended, normoactive bowel sounds, no guarding, no rebound, no masses. MUSCULOSKELETAL: Normal range of motion at all joints. No bony deformities or tenderness. No CVA tenderness. UPPER EXTREMITIES: 2+ radial pulses, warm, well-perfused. No cyanosis. No clubbing. No peripheral edema. LOWER EXTREMITIES: 2+ dp pulses, warm, well-perfused. No calf tenderness. No peripheral edema. NEUROLOGICAL: Normal speech. 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 moving all extremities withouth difficulty, no pronator or LE drift. no babinski PSYCHIATRIC: Cooperative. Good eye contact. Appropriate mood and affect. SKIN: Warm, dry, normal turgor, no rashes or lesions noted, normal capillary refill. Laboratory Results - last 24 hr 03/23/18 03/23/18 03/23/18 20:00 22:11 22:11 WBC RBC Hgb Hct MCV MCH MCHC RDW Plt Count MPV Absolute Neuts (auto) Neutrophils % Lymphocytes % Monocytes % Eosinophils % Basophils % Nucleated RBC % PT with INR INR Sodium 136 Potassium 4.8 Chloride 106 Carbon Dioxide 19 L Anion Gap 12 BUN 59 H Creatinine 2.9 H Creat Clearance w eGFR 20.79 Random Glucose 84 Lactic Acid Calcium 8.4 L Magnesium 1.8 Total Bilirubin 0.4 AST 154 H ALT 40 Alkaline Phosphatase 72 Creatine Kinase 3560 H Creatine Kinase Index 1.4 CK-MB (CK-2) 51.8 H Troponin I 0.15 H Total Protein 6.3 L Albumin 3.6 Urine Color Ltyellow Urine Appearance Clear Urine pH 5.0 Ur Specific [place] 1.013 Urine Protein 2+ H Urine Glucose (UA) Negative Urine Ketones Trace H Urine Blood 2+ H Urine Nitrite Negative Urine Bilirubin Negative Urine Urobilinogen Negative Ur Leukocyte Esterase Trace Urine WBC (Auto) 14 Urine RBC (Auto) 17 Ur Epithelial Cells Rare Urine Mucus Rare Stool Occult Blood Negative 03/23/18 03/23/18 03/23/18 22:11 23:15 23:15 WBC 12.5 H RBC 4.51 Hgb 11.7 Hct 34.4 L MCV 76.3 L MCH 25.8 MCHC 33.8 RDW 14.7 Plt Count 166 D MPV 10.0 Absolute Neuts (auto) 9.7 H Neutrophils % 77.4 D Lymphocytes % 14.9 D Monocytes % 7.2 Eosinophils % 0.2 D Basophils % 0.3 Nucleated RBC % 0 PT with INR 12.10 INR 1.03 Sodium Potassium Chloride Carbon Dioxide Anion Gap BUN Creatinine Creat Clearance w eGFR Random Glucose Lactic Acid 1.2 Calcium Magnesium Total Bilirubin AST ALT Alkaline Phosphatase Creatine Kinase Creatine Kinase Index CK-MB (CK-2) Troponin I Total Protein Albumin Urine Color Urine Appearance Urine pH Ur Specific [place] Urine Protein Urine Glucose (UA) Urine Ketones Urine Blood Urine Nitrite Urine Bilirubin Urine Urobilinogen Ur Leukocyte Esterase Urine WBC (Auto) Urine RBC (Auto) Ur Epithelial Cells Urine Mucus Stool Occult Blood CT scan with prelim reading: small hypodensities layering withing the anterior nonindependent portons of the bilaeral lateral ventricles which could represent fat or gas. Gas would indicate possible infectious etiology. fat would indicate possible rupture of fast-containing neoplasm wsh as teratoma, although there is no obvious indication of a neoplasm on these images. As there no neurosurg support available at tis time, requested ED to pursue tertiary care facility transfer as pt will require further assement not available at this time. As per ED neurosurg at [facility] said no further neurosurgical interventation is warranted as there was no interval changes on the CT scan. 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, HTN, dementia, CAD, polycystic kidney disease present s/p falls and complaint of URI symptom admitted for further evaluation of #Leucocytosis - r/o infections: flu and strep, UTI - intiate rocephin for coverage until cultures available - lozenges for sore throat #Unsteady gait - diffs include infection, cardiac syncope, progression of neurological dysfunction - recommend PT consultation and neurology evaluation - monitor on telemetry to r/o arrhytmia/ACS with elevated troponin, trend troponin level, check echo(ast echo in 03/2017) though pt has no complaint of chest pain an EKG without any acute ischemic changes, suspicion is low #GARRISON on CKD, baseline 1.8-2.0 - could be from volume depletion from infection, pre-renal from poor oral hydration - check fe- urea, if not improved with hydration may warrant nephro consult given hx of PCKD #elevated CK - likely due to mild rhabdo from repeated falls - repeat after gentle hydration #Dementia - meds will need to be reconciled, pharmacy currently not open - restart home medications; lexapro, klonopin, aricept #HTN - bystolic, hydralazine #HLD - crestor #BPH - flomax #diet - regular # activity - oob to chair, assistance with walking, PT evaluation #DVt: Hep TID Visit type - Emergency Visit Emergency Visit: Yes ED Registration Date: 03/24/18 Care time: The patient presented to the Emergency Department on the above date and was hospitalized for further evaluation of their emergent condition. - New Patient This patient is new to me today: Yes Date on this admission: 03/24/18 - Critical Care Critical Care patient: No
[2018-03-24] MEDS ORDERED: SODIUM CHLORIDE 1,000 ML IV SCH ×2 (01:30→05:58)
[2018-03-24] MEDS ORDERED: cefTRIAXone SODIUM 1 GM VIAL ONE (04:21)
[2018-03-24] MEDS: BENZOCAINE/MENTH/CETYLPYRD CL 1 EACH LOZENGE MM PRN ×3 (04:26→11:19)
[2018-03-24] MEDS: CEFTRIAXONE 1 GM in DEXTROSE 5%-WATER - 50 ML IVPB SCH (04:26)
--- NOTE | 2018-03-24 06:03 | PN ---
Teaching Attending Note Name of Resident: Sofía Gill ATTENDING PHYSICIAN STATEMENT I saw and evaluated the patient. I reviewed the resident's note and discussed the case with the resident. I agree with the resident's findings and plan as documented. SUBJECTIVE: Seen and examined; please refer to resident note for further historical information. Briefly, this is an 87 y/o male who is well-known to Dr. Corbett's service who presents with a history of falls over the past sevral days. He did have some LOC, denies any harriett trauma. They appear to be syncopal in nature. He also complained of dry mouth and some throat pain. In the ER he was found to have an unchanged head CT from prior admissions, no high degree avb, etc. on tele. He was found to have a CK at 3500, AST 154, mildly elevated troponin. He tells me the longest he was on the ground was 5 minutes. His Cr is slightly above his baseline with CKD. He will be admitted to the hospital, hydrated, and worked up for his recurring syncope and monitored that he doesn't develop florid rhabdo. 10 sys ROS done and negative aside from HPI PMH and PSH reviewed FH asked and noncontributory Socially he suffers from dementia; does have good family support Medication list reviewed; pending reconciliation OBJECTIVE: VS, labs, imaging reviewed NAD, AAO, resting in bed RRR s1/2 3/6 murmur Lungs without acute findings NT ND +BS Clear urine in urinal Labs show WBC 12, Cr 2.9 (baseline low 2's), AST 154, [id number], Trop 0.15, CKMB [address] unchanged from prior study on addendum ASSESSMENT AND PLAN: This is an 87 y/o male presenting with repeated falls who has GARRISON on CKD, elevated CK, flat troponin, and slight low CO2. Admitting to medicine on tele 1) Recurring syncope -Ddx broad; orthostatics not checked before hydration. EKG reviewed. Monitor on telemetry; consider repeating orthostatics in the AM. 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 Initially discussed with the ER taking them to [facility] as we did not have neurosurgery but given the CT results being unchanged the transfer was refused. Due to the underlying neuro issues we recommend his neurologist be consulted in the morning. He has worsening of his gait/lethargy/falls being documented for almost a year in his chart in the cardiology notes. Can consider cardiology consultation as well. -Noted the issue with bradycardia from prior CV consult; his bistolic was held at that juncture. Reconcile and review medication list. -He is on some medications on his old med list on [facility]'s list; consider this as a possible etiology as well -PT consultation 2) GARRISON on CKD with h/o polycystic kidney disease -Empirically hydrate; check FeUrea -Consider nephrology consult; BID BMP to r/o worsening renal function in the setting of potential rhabdo 3) Elevated CK with AST elevation and flat troponin -Suspicious for developing rhabdo; CK isn't >5k yet but is quite high in the 3500 range. Aggressively hydrating with NS@125 and monitoring Is and Os. Trend CK q6h and monitor for signs of fluid overload. Can consider nephrology consulation if needed 4) AST elevation -Isolated AST elevations can be seen in developing rhabdo; no abdominal sx. Would trend CMP and monitor exam. No abdominal imaging ordered at this time 5) Hx Colon CA -No issues; FU OP 6) Throat Pain -Flu negative, group A strep negative. If persists can try lidocaine swish 7) Dementia -Reconcile and continue home medications. 8) Low CO2 -Recheck BMP after hydration; may be 2/2 global process. No s/s infection or sepsis 9) Elevated troponin -Trend, recheck EKG, monitor on telemetry. Asx in terms of typical sx and the syncope doesn't fit a typical pattern one may expect to see with ACS. Presence of #3 noted as well which this is also seen with. Check echocardiogram (not done since 04/12) to r/o any WMAs. Code status not reported to be changed from prior encounter.
[2018-03-24 08:32] LABS: BASO % 0.4 % (0-2.0); EOS % 0.2 % (0-4.5); HEMATOCRIT 39.9 % (35.4-49); HEMOGLOBIN 12.3 GM/dL (11.7-16.9); LYMPH % 16.8 % (8-40); MCH 24.3 pg (25.7-33.7); MCHC 30.9 g/dl (32.0-35.9); MEAN CELL VOLUME 78.6 fl (80-96); MEAN PLT VOLUME 10.3 fl (7.5-11.1); NEUT % 76.6 % (42.8-82.8); PLATELET COUNT 177 K/MM3 (134-434); RBC 5.07 M/mm3 (4.00-5.60); RDW 14.8 % (11.9-15.9); WHITE BLOOD COUNT 13.3 K/mm3 (4.0-10.0)
[2018-03-24 09:16] LABS: BLOOD UREA NITROGEN 53 mg/dL (7-18); GLUCOSE,RANDOM 70 mg/dL (74-106)
[2018-03-24 09:17] LABS: ANION GAP 14 MMOL/L (8-16); CALCIUM 8.5 mg/dL (8.5-10.1); CHLORIDE 107 mmol/L (98-107); CO2 18 mmol/L (21-32); CREATININE 2.6 mg/dL (0.55-1.3); POTASSIUM 4.3 mmol/L (3.5-5.1); SODIUM 139 mmol/L (136-145)
[2018-03-24] MEDS ORDERED: ALBUTEROL SO4 0.083% IH SOL 2.5 MG/3 ML VIAL.NEB. NEB PRN (09:44)
--- NOTE | 2018-03-24 09:56 | PN ---
Progress Note, Physician Chief Complaint: Frequent falls Dizziness Metabolic encephalopathy - Current Medication List Current Medications: Active Medications Acetaminophen (Tylenol -) 650 mg PO Q6H PRN PRN Reason: PAIN LEVEL 1-5 Albuterol Sulfate (Ventolin 0.083% Nebulizer Soln -) 1 amp NEB Q6H PRN PRN Reason: SHORT OF BREATH/WHEEZING Amino Acids (Prosource No Carb Liquid Pkt) 30 ml PO BID@0800,1730 [facility] Ascorbic Acid (Vitamin C -) 250 mg PO DAILY MITCH Aspirin (Asa -) 81 mg PO DAILY MITCH Benzocaine/Menthol (Cepacol Lozenge -) 1 each MM PRN PRN PRN Reason: SORE THROAT Last Admin: 03/24/18 04:26 Dose: 1 each Clonazepam (Klonopin -) 0.5 mg PO DAILY [facility] Donepezil HCl (Aricept -) 10 mg PO HS [facility] Escitalopram Oxalate (Lexapro -) 10 mg PO DAILY [facility] Febuxostat (Uloric -) 40 mg PO DAILY [facility] Heparin Sodium (Porcine) (Heparin -) 5,000 unit SQ TID [facility] Last Admin: 03/24/18 05:51 Dose: 5,000 unit Hydralazine HCl (Apresoline -) 10 mg PO BID [facility] Ceftriaxone Sodium 1 gm/ (Dextrose) 50 mls @ 100 mls/hr IVPB DAILY [facility]; Protocol Last Admin: 03/24/18 04:26 Dose: 100 mls/hr Meclizine HCl (Antivert -) 25 mg PO TID [facility] Memantine (Namenda -) 5 mg PO BID [facility] Methyl Salicylate (Morro-Andrea -) 1 applic TP BID MITCH Multivitamins/Minerals/Vitamin C (Tab-A-Vit -) 1 tab PO DAILY [facility] Nebivolol (Bystolic -) 5 mg PO DAILY [facility] Non-Formulary Medication (Mirabegron [Myrbetriq]) 25 mg PO DAILY [facility] Nystatin/Triamcinolone Acetonide (Mycolog Ii Cream -) 1 applic TP BID [facility] Olanzapine (Zyprexa -) 5 mg PO HS [facility]CH Pantoprazole Sodium (Protonix -) 40 mg PO DAILY [facility] Rosuvastatin Calcium (Crestor -) 20 mg PO HS [facility] Tamsulosin HCl (Flomax -) 0.4 mg PO DAILY@0830 [facility] - Objective Vital Signs: Vital Signs Temperature 98.9 F 12/30/18 07:41 Pulse Rate 66 03/24/18 07:41 Respiratory Rate 16 03/23/18 18:32 Blood Pressure 179/65 H 03/24/18 07:41 O2 Sat by Pulse Oximetry (%) 97 03/24/18 07:41 Labs: CBC, BMP 03/24/18 08:10 03/24/18 08:10 INR, PTT INR 1.03 (0.83-1.09) 03/23/18 23:15
[2018-03-24] MEDS ORDERED: PATIENT'S OWN MEDICATION (NON-FORMULARY) (Mirabegron [Myrbetriq] 25 MG) PO SCH (10:00)
--- NOTE | 2018-03-24 11:26 | EKG ---
Test Reason : Blood Pressure : / mmHG Vent. 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
[2018-03-24] MEDS ORDERED: clonazePAM 0.5 MG TABLET ONE (13:08)
[2018-03-24] MEDS ORDERED: PANTOPRAZOLE 40 MG TABLET (FP) ONE (13:08)
[2018-03-24] MEDS ORDERED: hydrALAZINE HCL 25 MG TABLET (FP) ONE (13:08)
[2018-03-24] MEDS: hydrALAZINE HCL 10 MG TABLET PO SCH ×2 (13:10→23:25)
[2018-03-24] MEDS: clonazePAM 0.5 MG TABLET PO SCH (13:11)
[2018-03-24] MEDS: ASCORBIC ACID 250 MG TABLET (FP) PO SCH (13:11)
[2018-03-24] MEDS: ESCITALOPRAM OXALATE 10 MG TABLET (FP) PO SCH (13:11)
[2018-03-24] MEDS: ASPIRIN 81 MG CHEWABLE TABLETS PO SCH (13:11)
[2018-03-24] MEDS: PANTOPRAZOLE 40 MG TABLET (FP) PO SCH (13:11)
[2018-03-24] MEDS: METHYL SALICYLATE/MENTHOL OINT 30 GM TUBE TP SCH ×2 (13:12→23:25)
[2018-03-24] MEDS: MULTIVITAMINS (DAILY MVI) TABLET (FP) PO SCH (13:13)
[2018-03-24] MEDS: NYSTATIN/TRIAMCINOLONE TOPICAL CREAM 15 GM TUBE TP SCH ×2 (13:13→23:25)
[2018-03-24] MEDS: NEBIVOLOL 5 MG TABLET (FP) PO SCH (13:13)
[2018-03-24] MEDS: FEBUXOSTAT 40 MG TAB PO SCH (13:13)
[2018-03-24] MEDS: MEMANTINE HCL 5 MG TABLET (UD) PO SCH ×2 (13:13→23:25)
--- NOTE | 2018-03-24 15:24 | CONSULT ---
Consult Consult Specialty:: Nephrology Reason for Consultation:: CKD - History of Present Illness Chief Complaint: dizziness History of Present Illness: Pt is an 87 year old male with pmhx of ckd, pkd, htn, dementia, CAD, colon cancer and gout who presents with dizziness and fatigue. He denies shortness of breath. He has had poor appetite. He denies dysuria or hematuria. I was called to evaluate him for elevated creatinine. He had several falls at home. He denies fevers but gets chills at times. 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, Other (hydrocephalus) Cardio/Vascular: Yes: CAD, HTN, Hyperlipdemia Renal/: Yes: Renal Inusuff, UTI, Other (PKD) Rheumatology: Yes: Gout - Alcohol/Substance Use Hx Alcohol Use: No - Smoking History Smoking history: Never smoked Have you smoked in the past 12 months: No If you are a former smoker, when did you quit?: 1966 - Social History Usual Living Arrangement: With Spouse Home Medications - Allergies Allergies/Adverse Reactions: Allergies Allergy/AdvReac Type Severity Reaction Status Date / Time No Known Allergies Allergy Verified 11/07/17 23:18 - Home Medications Home Medications: Ambulatory Orders Aspirin [ASA -] 81 mg PO DAILY 04/05/17 Donepezil HCl [Aricept -] 10 mg PO DAILY 04/05/17 Escitalopram Oxalate [Lexapro -] 10 mg PO DAILY 04/05/17 hydrALAZINE HCL [Apresoline -] 10 mg PO BID 04/05/17 Acetaminophen [Tylenol .Regular Strength -] 650 mg PO Q6H PRN tablet 04/15/17 Amino Acids/Protein Hydrolys [Prosource No Carb Liquid Pkt] 30 ml PO BID@0800, 1730 packet 04/15/17 Ascorbic Acid [Vitamin C -] 250 mg PO DAILY tablet 04/15/17 Multivitamins [Multivit ([facility])] 1 tab PO DAILY tab 04/15/17 Pantoprazole Sodium [Protonix -] 40 mg PO DAILY tablet.ec 04/15/17 Rosuvastatin [Crestor -] 20 mg PO HS tablet 04/15/17 Tamsulosin HCl [Flomax -] 0.4 mg PO DAILY@0830 cap.er.24h 04/15/17 Febuxostat [Uloric] 40 mg PO DAILY 06/18/17 Memantine HCl [Namenda -] 5 mg PO BID 06/18/17 Mirabegron [Myrbetriq] 25 mg PO DAILY 06/18/17 Albuterol 0.083% Nebulizer Connie [Ventolin 0.083% Nebulizer Soln -] 1 amp NEB Q6H PRN amp 06/22/17 Nystatin/Triamcinolone Top Cr [Mycolog II -] 1 applic TP BID #90 applic Olanzapine [Zyprexa -] 5 mg PO HS tablet 06/22/17 clonazePAM [Klonopin -] 0.5 mg PO DAILY tablet MDD / TAB 06/22/17 Acetaminophen [Tylenol .Regular Strength -] 650 mg PO Q6H PRN tablet 09/17/17 Nebivolol [Bystolic -] 5 mg PO DAILY tab 09/17/17 Amoxicillin - [Amoxicillin 250mg Capsule -] 250 mg PO BID #14 capsule 11/06/17 Methyl Salicylate/Menthol Oint [Analgesic [place] -] 1 applic TP BID applic Family Disease History - Family Disease History Family History: Denies Review of Systems - Review of Systems Constitutional: reports: Chills, Loss of Appetite, Malaise. denies: Fever Eyes: reports: No Symptoms HENT: reports: No Symptoms Neck: reports: No Symptoms Cardiovascular: denies: Edema, Shortness of Breath Respiratory: denies: SOB, SOB on Exertion Gastrointestinal: reports: No Symptoms Genitourinary: reports: Dysuria Musculoskeletal: reports: Muscle Weakness Integumentary: reports: No Symptoms Hematology/Lymphatic: reports: No Symptoms Psychiatric: reports: No Symptoms Physical Exam Vital Signs: Vital Signs Temperature 98.9 F 03/24/18 07:41 Pulse Rate 82 03/24/18 10:00 Respiratory Rate 16 03/23/18 18:32 Blood Pressure 144/80 03/24/18 10:00 O2 Sat by Pulse Oximetry (%) 97 03/24/18 07:41 Constitutional: Yes: Calm Eyes: Yes: Conjunctiva Clear HENT: Yes: Atraumatic Neck: Yes: Supple Cardiovascular: Yes: S1, S2 Respiratory: Yes: CTA Bilaterally Gastrointestinal: Yes: Soft, Abdomen, Obese Renal/: Yes: WNL Musculoskeletal: Yes: WNL Edema: No Neurological: Yes: Oriented Labs: CBC, BMP 03/24/18 08:10 03/24/18 08:10 Laboratory Tests 11/07/17 11/07/17 11/08/17 23:55 23:55 05:55 WBC 6.8 7.6 Hgb 11.2 L 11.5 L Plt Count 121 L 114 L Sodium Potassium Creatinine 2.3 H Creatine Kinase Urine Blood Ur Leukocyte Esterase 11/08/17 03/23/18 03/23/18 05:55 22:11 22:11 WBC Hgb Plt Count Sodium 142 Potassium 4.9 Creatinine 2.2 H 2.9 H Creatine Kinase Urine Blood 2+ H Ur Leukocyte Esterase Trace 03/24/18 03/24/18 08:10 08:10 WBC 13.3 H Hgb Plt Count Sodium Potassium Creatinine 2.6 H Creatine Kinase 3466 H Urine Blood Ur Leukocyte Esterase Imaging - Results Chest X-ray: Report Reviewed Cat Scan: Report Reviewed Problem List - Problems (1) Syncope Code(s): R55 - SYNCOPE AND COLLAPSE (2) GARRISON (acute kidney injury) Code(s): N17.9 - ACUTE KIDNEY FAILURE, UNSPECIFIED (3) CKD (chronic kidney disease) Code(s): N18.9 - CHRONIC KIDNEY DISEASE, UNSPECIFIED Assessment/Plan Current Medications Generic Name Dose Route Start Last Admin Trade Name Freq PRN Reason Stop Dose Admin Acetaminophen 650 mg 03/24/18 09:44 Tylenol - PO Q6H PRN PAIN LEVEL 1-5 Albuterol Sulfate 1 amp 03/24/18 09:44 Ventolin 0.083% Nebulizer Soln - NEB Q6H PRN SHORT OF BREATH/WHEEZING Amino Acids 30 ml 03/24/18 17:30 Prosource No Carb Liquid Pkt PO BID@0800,1730 [facility] Ascorbic Acid 250 mg 03/24/18 10:00 03/24/18 13:11 Vitamin C - PO 250 mg DAILY [facility] Administration Aspirin 81 mg 03/24/18 10:00 03/24/18 13:11 Asa - PO 81 mg DAILY [facility] Administration Benzocaine/Menthol 1 each 03/24/18 03:56 03/24/18 11:19 Cepacol Lozenge - MM 1 each PRN PRN Administration SORE THROAT Clonazepam 0.5 mg 03/24/18 10:00 03/24/18 13:11 Klonopin - PO 0.5 mg DAILY [facility] Administration Donepezil HCl 10 mg 03/24/18 22:00 Aricept - PO HS MITCH Escitalopram Oxalate 10 mg 03/24/18 10:00 03/24/18 13:11 Lexapro - PO 10 mg DAILY [facility] Administration Febuxostat 40 mg 03/24/18 10:00 03/24/18 13:13 Uloric - PO Not Given DAILY [facility] Heparin Sodium (Porcine) 5,000 unit 03/24/18 00:02 03/24/18 05:51 Heparin - SQ 5,000 unit TID [facility] Administration Hydralazine HCl 10 mg 03/24/18 10:00 03/24/18 13:10 Apresoline - PO 10 mg BID [facility] Administration Ceftriaxone Sodium 1 gm/ 50 mls @ 100 mls/hr 03/24/18 04:00 03/24/18 04:26 Dextrose IVPB 100 mls/hr DAILY [facility] Administration Protocol Meclizine HCl 25 mg 03/24/18 14:00 Antivert - PO TID MITCH Memantine 5 mg 03/24/18 10:00 03/24/18 13:13 Namenda - PO Not Given BID [facility] Methyl Salicylate 1 applic 03/24/18 10:00 03/24/18 13:12 [place]-Andrea - TP Not Given BID [facility] Multivitamins/Minerals/Vitamin C 1 tab 03/24/18 10:00 03/24/18 13:13 Tab-A-Vit - PO Not Given DAILY [facility] Nebivolol 5 mg 03/24/18 10:00 03/24/18 13:13 Bystolic - PO Not Given DAILY [facility] Non-Formulary Medication 25 mg 03/24/18 10:00 Mirabegron [Myrbetriq] PO DAILY [facility] Nystatin/Triamcinolone Acetonide 1 applic 03/24/18 10:00 03/24/18 13:13 Mycolog Ii Cream - TP Not Given BID [facility] Olanzapine 5 mg 03/24/18 22:00 Zyprexa - PO HS [facility] Pantoprazole Sodium 40 mg 03/24/18 10:00 03/24/18 13:11 Protonix - PO 40 mg DAILY [facility] Administration Rosuvastatin Calcium 20 mg 03/24/18 22:00 Crestor - PO HS [facility] Tamsulosin HCl 0.4 mg 03/25/18 08:30 Flomax - PO DAILY@0830 [facility] Impression 1. CKD 2. PKD 3. dizziness 4. HTN 5. weakness 6. loss of appetite 7. prostate cancer 8. dementia 9. hyperlipidemia 10. GARRISON 11. 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
[2018-03-24] MEDS ORDERED: DEXTROSE 5%-0.45% SALINE 1,000 ML IV SCH (15:45)
--- NOTE | 2018-03-24 17:09 | CON.CARD ---
Consult Consult Specialty:: Cardiology Reason for Consultation:: Light headedness - History of Present Illness Chief Complaint: No new complaints presently History of Present Illness: This is an 87 year old male with a PMH of ementia, hypertension, CAD, CKA, polycystic kidney disease, colon ca, and gout. As per the patient's at bedside, the patient has fallen about 9 times in the past few days secondary to lightheadedness. No chest pain or SOB. No complaints of palpitations. 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, Other (hydrocephalus) Cardio/Vascular: Yes: CAD, HTN, Hyperlipdemia Renal/: Yes: Renal Inusuff, UTI, Other (PKD) Rheumatology: Yes: Gout - Alcohol/Substance Use Hx Alcohol Use: No - Smoking History Smoking history: Never smoked Have you smoked in the past 12 months: No If you are a former smoker, when did you quit?: 1966 - Social History Usual Living Arrangement: With Spouse Home Medications - Allergies Allergies/Adverse Reactions: Allergies Allergy/AdvReac Type Severity Reaction Status Date / Time No Known Allergies Allergy Verified 11/07/17 23:18 - Home Medications Home Medications: Ambulatory Orders Aspirin [ASA -] 81 mg PO DAILY 04/05/17 Donepezil HCl [Aricept -] 10 mg PO DAILY 04/05/17 Escitalopram Oxalate [Lexapro -] 10 mg PO DAILY 04/05/17 hydrALAZINE HCL [Apresoline -] 10 mg PO BID 04/05/17 Acetaminophen [Tylenol .Regular Strength -] 650 mg PO Q6H PRN tablet 04/15/17 Amino Acids/Protein Hydrolys [Prosource No Carb Liquid Pkt] 30 ml PO BID@0800, 1730 packet 04/15/17 Ascorbic Acid [Vitamin C -] 250 mg PO DAILY tablet 04/15/17 Multivitamins [Multivit ([facility])] 1 tab PO DAILY tab 04/15/17 Pantoprazole Sodium [Protonix -] 40 mg PO DAILY tablet.ec 04/15/17 Rosuvastatin [Crestor -] 20 mg PO HS tablet 04/15/17 Tamsulosin HCl [Flomax -] 0.4 mg PO DAILY@0830 cap.er.24h 04/15/17 Febuxostat [Uloric] 40 mg PO DAILY 06/18/17 Memantine HCl [Namenda -] 5 mg PO BID 06/18/17 Mirabegron [Myrbetriq] 25 mg PO DAILY 06/18/17 Albuterol 0.083% Nebulizer Connie [Ventolin 0.083% Nebulizer Soln -] 1 amp NEB Q6H PRN amp 06/22/17 Nystatin/Triamcinolone Top Cr [Mycolog II -] 1 applic TP BID #90 applic Olanzapine [Zyprexa -] 5 mg PO HS tablet 06/22/17 clonazePAM [Klonopin -] 0.5 mg PO DAILY tablet MDD 1/ TAB 06/22/17 Acetaminophen [Tylenol .Regular Strength -] 650 mg PO Q6H PRN tablet 09/17/17 Nebivolol [Bystolic -] 5 mg PO DAILY tab 09/17/17 Amoxicillin - [Amoxicillin 250mg Capsule -] 250 mg PO BID #14 capsule 11/06/17 Methyl Salicylate/Menthol Oint [Analgesic [place] -] 1 applic TP BID applic Vital Signs: Vital Signs Temperature 98.9 F 03/24/18 07:41 Pulse Rate 82 03/24/18 10:00 Respiratory Rate 16 03/23/18 18:32 Blood Pressure 144/80 03/24/18 10:00 O2 Sat by Pulse Oximetry (%) 97 03/24/18 07:41 Constitutional: Yes: No Distress Eyes: Yes: WNL HENT: Yes: WNL Neck: Yes: WNL Respiratory: Yes: CTA Bilaterally Gastrointestinal: Yes: Normal Bowel Sounds Cardiovascular: Yes: Regular Rate and Rhythm Heart Sounds: Yes: S1, S2 (No MRHG) Edema: No Neurological: Yes: Alert (Dementia) - Other Data Labs, Other Data: CBC, BMP 03/24/18 08:10 03/24/18 08:10 INR, PTT INR 1.03 (0.83-1.09) 03/23/18 23:15 Troponin, BNP 03/23/18 03/24/18 22:11 04:00 Troponin I 0.15 H 0.16 H Troponin, BNP 03/23/18 03/24/18 22:11 04:00 Troponin I 0.15 H 0.16 H Assessment/Plan 87 year old male with a PMH of ementia, hypertension, CAD, CKA, polycystic kidney disease, colon ca, and gout. As per the patient's at bedside, the patient has fallen about 9 times in the past few days secondary to lightheadedness. No chest pain or SOB. No complaints of palpitations. Lightheadedness Presently no bradycardia HR 62 bpm Would check orthostatics May be dehydrated BUN 59, encourage bedside PO water intake Consider an alternative to Tamsulosin because the alpha blockers can contribute to lightheadedness
[2018-03-24 17:35] VITALS: BMI 31.6
[2018-03-24] MEDS ORDERED: ACETAMINOPHEN 325 MG TABLET (FP) ONE (20:24)
[2018-03-24] MEDS: ACETAMINOPHEN 325 MG TABLET (FP) PO PRN (20:37)
[2018-03-24] MEDS: AMINO ACIDS/PROTEIN HYDROLYS 30 ML LIQUID.PKT PO SCH (22:53)
[2018-03-24] MEDS: DONEPEZIL HCL 10 MG TABLET (FP) PO SCH (23:25)
[2018-03-24] MEDS: ROSUVASTATIN CA 20 MG TABLET (FP) PO SCH (23:25)
[2018-03-24] MEDS: OLANZapine 5 MG TABLET PO SCH (23:26)
[2018-03-24] MEDS ORDERED: HEMOQUE TEST 1 EACH EACH ONE (23:37)
[2018-03-25] MEDS: TAMSULOSIN HCL 0.4 MG CAP PO SCH (08:52)
[2018-03-25] MEDS: ACETAMINOPHEN 325 MG TABLET (FP) PO PRN ×2 (08:52→16:53)
[2018-03-25] MEDS: AMINO ACIDS/PROTEIN HYDROLYS 30 ML LIQUID.PKT PO SCH ×2 (08:52→16:53)
[2018-03-25] MEDS ORDERED: PT OWN MED DRAWER 7, Y5N ONE ×3 (09:09→21:04)
[2018-03-25] MEDS ORDERED: DEXTROSE 5%-WATER - 50 ML IVPB ONE (09:10)
[2018-03-25] MEDS ORDERED: cefTRIAXone SODIUM 1 GM VIAL ONE (09:10)
[2018-03-25] MEDS: MULTIVITAMINS (DAILY MVI) TABLET (FP) PO SCH (09:12)
[2018-03-25] MEDS: PANTOPRAZOLE 40 MG TABLET (FP) PO SCH (09:12)
[2018-03-25] MEDS: clonazePAM 0.5 MG TABLET PO SCH (09:12)
[2018-03-25] MEDS: MEMANTINE HCL 5 MG TABLET (UD) PO SCH ×2 (09:12→21:07)
[2018-03-25] MEDS: CEFTRIAXONE 1 GM in DEXTROSE 5%-WATER - 50 ML IVPB SCH (09:12)
[2018-03-25] MEDS: hydrALAZINE HCL 10 MG TABLET PO SCH ×2 (09:12→21:07)
[2018-03-25] MEDS: ESCITALOPRAM OXALATE 10 MG TABLET (FP) PO SCH (09:12)
[2018-03-25] MEDS: ASPIRIN 81 MG CHEWABLE TABLETS PO SCH (09:12)
[2018-03-25] MEDS: METHYL SALICYLATE/MENTHOL OINT 30 GM TUBE TP SCH ×2 (09:13→21:08)
[2018-03-25] MEDS: NEBIVOLOL 5 MG TABLET (FP) PO SCH (09:14)
--- NOTE | 2018-03-25 09:14 | CONSULT ---
Consult - text type - Consultation Consultation Note: Neurology History of Present Illness 87 year old male with a significant PMH of dementia, hypertension, CAD, CKA, polycystic kidney disease, colon ca, and GOUT who presentrf to the emergency department with lightheadedness for the past several days. As per the patient's , the patient has fallen about 9 times in the past few days secondary to lightheadedness. He reported associated headache. Neurologically without deficits. Noted to have TRAUMA SURGEON shunt and CT head completed and reviewed and without changes, stable as reported. Reports feeling well this AM and no new symptoms. Carotid Doppler completed and moderate atherosclerotic disease, 60-79% b/l ICA stenosis. Consider Vascular consult and evaluation for CEA. Past History - Travel Traveled outside of the country in the last 30 days: No Close contact w/someone who was outside of country & ill: No - Past Medical History Allergies/Adverse Reactions: Allergies Allergy/AdvReac Type Severity Reaction Status Date / Time No Known Allergies Allergy Verified 11/07/17 23:18 Home Medications: Ambulatory Orders Aspirin [ASA -] 81 mg PO DAILY 04/05/17 Donepezil HCl [Aricept -] 10 mg PO DAILY 04/05/17 Escitalopram Oxalate [Lexapro -] 10 mg PO DAILY 04/05/17 hydrALAZINE HCL [Apresoline -] 10 mg PO BID 04/05/17 Acetaminophen [Tylenol .Regular Strength -] 650 mg PO Q6H PRN tablet 04/15/17 Amino Acids/Protein Hydrolys [Prosource No Carb Liquid Pkt] 30 ml PO BID@0800, 1730 packet 04/15/17 Ascorbic Acid [Vitamin C -] 250 mg PO DAILY tablet 04/15/17 Multivitamins [Multivit ([facility] Form[facility])] 1 tab PO DAILY tab 04/15/17 Pantoprazole Sodium [Protonix -] 40 mg PO DAILY tablet.ec 04/15/17 Rosuvastatin [Crestor -] 20 mg PO HS tablet 04/15/17 Tamsulosin HCl [Flomax -] 0.4 mg PO DAILY@0830 cap.er.24h 04/15/17 Febuxostat [Uloric] 40 mg PO DAILY 06/18/17 Memantine HCl [Namenda -] 5 mg PO BID 06/18/17 Mirabegron [Myrbetriq] 25 mg PO DAILY 06/18/17 Albuterol 0.083% Nebulizer Connie [Ventolin 0.083% Nebulizer Soln -] 1 amp NEB Q6H PRN amp 06/22/17 Nystatin/Triamcinolone Top Cr [Mycolog II -] 1 applic TP BID #90 applic Olanzapine [Zyprexa -] 5 mg PO HS tablet 06/22/17 clonazePAM [Klonopin -] 0.5 mg PO DAILY tablet MDD 1/2 TAB 06/22/17 Acetaminophen [Tylenol .Regular Strength -] 650 mg PO Q6H PRN tablet 09/17/17 Nebivolol [Bystolic -] 5 mg PO DAILY tab 09/17/17 Amoxicillin - [Amoxicillin 250mg Capsule -] 250 mg PO BID #14 capsule 11/06/17 Methyl Salicylate/Menthol Oint [Analgesic [place] -] 1 applic TP BID applic Anemia: No Asthma: No Cancer: Yes (- prostate) Cardiac Disorders: Yes CVA: No COPD: No CHF: No DVT: No Dementia: Yes Diabetes: No GI Disorders: No Disorders: Yes (PKD ) HTN: Yes Hypercholesterolemia: Yes Liver Disease: No Psychiatric Problems: Yes (depression) Seizures: No Thyroid Disease: No Other medical history: CKD, PKD, NPH, OA, Gout - Surgical History Abdominal Surgery: No Appendectomy: No Cardiac Surgery: Yes (open heart sx for valve replacement 2005) Cholecystectomy: No Lung Surgery: No Neurologic Surgery: No Orthopedic Surgery: Yes - Suicide/Smoking/Psychosocial Hx Smoking History: Never smoked Have you smoked in the past 12 months: No If you are a former smoker, when did you quit?: 1966 Information on smoking cessation initiated: No Hx Alcohol Use: No Drug/Substance Use Hx: No Substance Use Type: None Hx Substance Use Treatment: No Review of Systems Constitutional: Yes: Symptoms Reported, Chills, Diaphoresis. No: Fever HEENTM: Yes: Throat Pain, Difficulty Swallowing. No: Recent change in vision, Hearing Loss Respiratory: No: Symptoms reported, Cough, Shortness of Breath, SOB with Exertion, SOB at Rest Cardiac (ROS): Yes: Symptoms Reported, Edema, Lightheadedness, Syncope. No: Chest Pain, Palpitations, Chest Tightness ABD/GI: Yes: Symptoms Reported, Difficulty Swallowing, Poor Fluid Intake. No: Abdominal Distended, Abd. Pain w/ defecation, Blood Streaked Bowels, Constipated , Diarrhea, Nausea, Rectal Bleeding, Vomiting : Yes: Symptoms Reported, Frequency, Urgency. No: Burning, Dysuria, Discharge , Flank Pain, Hematuria, Incontinence, Pain Musculoskeletal: No: Symptoms Reported Integumentary: Yes: Symptoms Reported, Sweating Neurological: Yes: Symptoms reported, Headache, Pre-Existing Deficit (unsteady gait but worsening ), Tremors, Weakness, Unsteady Gait, Ataxia, Dizziness. No: Numbness, Paresthesia, Seizure, Tingling Psychiatric: Yes: Anxiety, Depression Endocrine: Yes: Increased Thirst *Physical Exam Vital Signs Period Temp Pulse Resp BP Sys/Handy Pulse Ox Last 24 Hr 97.4 F-98.6 F 55-82 18-20 116-144/52-80 93-97 - Physical Exam General Appearance: Yes: Nourished, Appropriately Dressed, Apparent Distress HEENT: positive: LOLA, Normal Voice, Symmetrical, Pharynx Normal, Hearing Grossly Normal. negative: Tonsillar Exudate, Tonsillar Erythema, Nasal Congestion, Hearing Decreased, Excessive drooling Neck: positive: Supple. negative: Carotid bruit Respiratory/Chest: positive: Lungs Clear. negative: Chest Tender, Normal Breath Sounds, Respiratory Distress, Accessory Muscle Use, Labored Respiration, Crackles, Rales, Wheezing Cardiovascular: positive: Regular Rhythm, Regular Rate, S1, S2, Edema, JVD Vascular Pulses: Dorsalis-Pedis (R): 2+, Doralis-Pedis (L): 2+ Gastrointestinal/Abdominal: positive: Tender, Tenderness Male Genitalia: positive: normal genitalia. negative: normal prostate ( enlarged ), discharge Rectal Exam: positive: heme negative stool, normal exam, normal rectal tone, hemorrhoids (external hemorrhoids, no internal felt ). negative: NL Prostate ( diffusely enlarged, no nodularity appreciated ), melena, heme positive stool Extremity: positive: Normal Capillary Refill, Normal Inspection, Pedal Edema, Swelling. negative: Calf Tenderness, Erythema, Inflammation Neurologic: CN intact, no facial droop, no slurring of speech, moves all extremities equally, sensory intact CBCD WBC 13.3 K/mm3 (4.0-10.0) H 03/24/ 08:10 RBC 5.07 M/mm3 (4.00-5.60) 03/24/18 08:10 Hgb 12.3 GM/dL (11.7-16.9) 03/24/18 08:10 Hct 39.9 % (35.4-49) D 03/24/18 08:10 MCV 78.6 fl (80-96) L 03/24/18 08:10 MCHC 30.9 g/dl (32.0-35.9) L 03/24/18 08:10 RDW 14.8 % (11.9-15.9) 03/24/18 08:10 Plt Count 177 K/MM3 (134-434) 03/24/18 08:10 MPV 10.3 fl (7.5-11.1) 03/24/18 08:10 CMP Sodium 139 mmol/L (136-145) 03/24/18 08:10 Potassium 4.3 mmol/L (3.5-5.1) 03/24/18 08:10 Chloride 107 mmol/L (98-107) 03/24/18 08:10 Carbon Dioxide 18 mmol/L (21-32) L 03/24/18 08:10 Anion Gap 14 MMOL/L (8-16) 03/24/18 08:10 BUN 53 mg/dL (7-18) H 03/24/18 08:10 Creatinine 2.6 mg/dL (0.55-1.3) H 03/24/18 08:10 Creat Clearance w eGFR 23.58 (>60) 03/24/18 08:10 Random Glucose 70 mg/dL (74-106) L 03/24/18 08:10 Calcium 8.5 mg/dL (8.5-10.1) 03/24/18 08:10 Total Bilirubin 0.4 mg/dL (0.2-1) 03/23/18 22:11 AST 154 U/L (15-37) H 03/23/18 22:11 ALT 40 U/L (13-61) 03/23/18 22:11 Alkaline Phosphatase 72 U/L (45-117) 03/23/18 22:11 Total Protein 6.3 g/dl (6.4-8.2) L 03/23/18 22:11 Albumin 3.6 g/dl (3.4-5.0) 03/23/18 22:11 CARDIAC ENZYMES Creatine Kinase 3466 IU/L (26-308) H 03/24/18 08:10 Troponin I 0.16 ng/ml (0.00-0.05) H 03/24/18 04:00 - RADIOLOGY CT head reviewed Plan: 87 year old male with a significant PMH of dementia, hypertension, CAD, CKA, polycystic kidney disease, colon ca, and GOUT who presentrf to the emergency department with lightheadedness for the past several days. As per the patient's , the patient has fallen about 9 times in the past few days secondary to lightheadedness. He reported associated headache. Neurologically without deficits. Noted to have TRAUMA SURGEON shunt and CT head completed and reviewed and without changes, stable as reported. Reports feeling well this AM and no new symptoms. Carotid Doppler completed and moderate atherosclerotic disease, 60-79% b/l ICA stenosis. Consider Vascular consult and evaluation for CEA. Underlying dementia , on donepizil, would not change at this time. Recommend outpatient followup for formal memory testing and can then determine patient's cognitive status when not acutely inpatient. Increased hydration recommended, cardiology follow up. Fall precautions. DVT ppx.
[2018-03-25] MEDS: NYSTATIN/TRIAMCINOLONE TOPICAL CREAM 15 GM TUBE TP SCH ×2 (09:15→21:08)
[2018-03-25] MEDS: ASCORBIC ACID 250 MG TABLET (FP) PO SCH (09:16)
[2018-03-25] MEDS: FEBUXOSTAT 40 MG TAB PO SCH (10:41)
--- NOTE | 2018-03-25 11:08 | PN ---
Progress Note, Physician Chief Complaint: awake alert still confused - Current Medication List Current Medications: Active Medications Acetaminophen (Tylenol -) 650 mg PO Q6H PRN PRN Reason: PAIN LEVEL 1-5 Last Admin: 03/25/18 08:52 Dose: 650 mg Albuterol Sulfate (Ventolin 0.083% Nebulizer Soln -) 1 amp NEB Q6H PRN PRN Reason: SHORT OF BREATH/WHEEZING Amino Acids (Prosource No Carb Liquid Pkt) 30 ml PO BID@0800,1730 [facility] Last Admin: 03/25/18 08:52 Dose: 30 ml Ascorbic Acid (Vitamin C -) 250 mg PO DAILY [facility] Last Admin: 03/25/18 09:16 Dose: 250 mg Aspirin (Asa -) 81 mg PO DAILY [facility] Last Admin: 03/25/18 09:12 Dose: 81 mg Benzocaine/Menthol (Cepacol Lozenge -) 1 each MM PRN PRN PRN Reason: SORE THROAT Last Admin: 03/24/18 11:19 Dose: 1 each Clonazepam (Klonopin -) 0.5 mg PO DAILY [facility] Last Admin: 03/25/18 09:12 Dose: 0.5 mg Donepezil HCl (Aricept -) 10 mg PO HS [facility] Last Admin: 03/24/18 23:25 Dose: 10 mg Escitalopram Oxalate (Lexapro -) 10 mg PO DAILY [facility] Last Admin: 03/25/18 09:12 Dose: 10 mg Febuxostat (Uloric -) 40 mg PO DAILY [facility] Last Admin: 03/25/18 10:41 Dose: 40 mg Heparin Sodium (Porcine) (Heparin -) 5,000 unit SQ TID [facility] Last Admin: 03/24/18 05:51 Dose: 5,000 unit Hydralazine HCl (Apresoline -) 10 mg PO BID [facility] Last Admin: 03/25/18 09:12 Dose: 10 mg Ceftriaxone Sodium 1 gm/ (Dextrose) 50 mls @ 100 mls/hr IVPB DAILY [facility]; Protocol Last Admin: 03/25/18 09:12 Dose: 100 mls/hr Dextrose/Sodium Chloride (D5-1/2ns -) 1,000 mls @ 50 mls/hr IV ASDIR [facility] Last Admin: 03/24/18 22:54 Dose: 50 mls/hr Meclizine HCl (Antivert -) 25 mg PO TID [facility] Memantine (Namenda -) 5 mg PO BID [facility] Last Admin: 03/25/18 09:12 Dose: 5 mg Methyl Salicylate ([place]-Andrea -) 1 applic TP BID [facility] Last Admin: 03/25/18 09:13 Dose: 1 applic Multivitamins/Minerals/Vitamin C (Tab-A-Vit -) 1 tab PO DAILY [facility] Last Admin: 03/25/18 09:12 Dose: 1 tab Nebivolol (Bystolic -) 5 mg PO DAILY [facility] Last Admin: 03/25/18 09:14 Dose: 5 mg Non-Formulary Medication (Mirabegron [Myrbetriq]) 25 mg PO DAILY [facility] Nystatin/Triamcinolone Acetonide (Mycolog Ii Cream -) 1 applic TP BID [facility] Last Admin: 03/25/18 09:15 Dose: 1 applic Olanzapine (Zyprexa -) 5 mg PO HS [facility] Last Admin: 03/24/18 23:26 Dose: 5 mg Pantoprazole Sodium (Protonix -) 40 mg PO DAILY [facility] Last Admin: 03/25/18 09:12 Dose: 40 mg Rosuvastatin Calcium (Crestor -) 20 mg PO HS [facility] Last Admin: 03/24/18 23:25 Dose: 20 mg Tamsulosin HCl (Flomax -) 0.4 mg PO DAILY@0830 [facility] Last Admin: 03/25/18 08:52 Dose: 0.4 mg - Objective Vital Signs: Vital Signs Temperature 97.6 F 03/25/18 09:20 Pulse Rate 65 03/25/18 09:20 Respiratory Rate 18 03/25/18 09:20 Blood Pressure 154/79 03/25/18 09:20 O2 Sat by Pulse Oximetry (%) 95 03/25/18 09:00 Constitutional: Yes: Mild Distress Eyes: Yes: WNL HENT: Yes: WNL Neck: Yes: WNL Cardiovascular: Yes: Pulse Irregular Respiratory: Yes: WNL Gastrointestinal: Yes: Abdomen, Obese Genitourinary: Yes: Incontinence Musculoskeletal: Yes: Muscle Weakness Edema: No Neurological: Yes: Confusion ...Motor Strength: LLE, RLE Psychiatric: Yes: Other Labs: CBC, BMP 03/24/18 08:10 03/24/18 08:10 INR, PTT INR 1.03 (0.83-1.09) 03/23/18 23:15 Assessment/Plan CAROTID STENOSIS CALLING VASC CONSULT CARDIO/NEURO EVAL LEUKOCYTOSIS CHECK CX TOXIC METABOLIC ENCEPHALOPATHY PT EVAL OOB TO CHAIR NEURO CHECKS
--- NOTE | 2018-03-25 13:44 | PN ---
Progress Note (short form) - Note Progress Note: ID Consult dictated R/O toxic metabolic encephlopathy/ Sepsis Leukocytosis Recurent falls NPH s/p SLAB LIFTING ENGINEER shunt Azotemia pending sepsis work up empiric ceftriaxone Neurosurgery evluation
[2018-03-25] MEDS: MECLIZINE HCL 25 MG TABLET (FP) PO SCH ×2 (13:56→21:07)
[2018-03-25] MEDS: HEPARIN NA (PORCINE) 5,000 UNITS/ML 1ML VIAL SQ SCH ×2 (13:56→21:08)
[2018-03-25 14:16] LABS: ANION GAP 10 MMOL/L (8-16); BLOOD UREA NITROGEN 53 mg/dL (7-18); CALCIUM 8.2 mg/dL (8.5-10.1); CHLORIDE 109 mmol/L (98-107); CO2 19 mmol/L (21-32); CREATININE 2.4 mg/dL (0.55-1.3); GLUCOSE,RANDOM 167 mg/dL (74-106); SODIUM 138 mmol/L (136-145)
--- NOTE | 2018-03-25 14:23 | CONSULT ---
Consult - text type - Consultation Consultation Note: Patient with multiple medical problems who is well known to me. Patient treated for NPH with Right Occipital ROLL GRINDER shunt last year with substantial improvement in gait and cognition. Patient noted to have overdrainage last summer and shunt valve reset to higher pressure setting. Recently, patient with cognitive decline and complaining of lightheadedness and falling. Patient admitted for further workup as well as evaluation for possible sepsis with leukocytosis. Recent Head CT shows interval resolution of the subdural hygromata. Shunt pumps and refills well on Physical Exam and patient is awake and pleasantly interactive. At this point, I would not recommend further adjustment or manipulation of the shunt. The patient has had episodes of cognitive decline in the past associated with his many bouts of urinary tract infections and with any systemic process, his cognition has declined and improved associated with treatment of his underlying conditions. Agree with Dr. Carballo that vascular evaluation for carotid disease and outpatient cognitive assessment would be reasonable once clear from Infectious Diseases perspective by Dr. Moser. If despite all of these efforts, his cognitive decline and falls/imbalance/ lightheadedness persist, I would then consider slowly increasing the CSF diversion to address untreated/suboptimally treated NPH. At such a point, I would initially pump the shunt repeatedly to determine whether additional CSF withdrawl would benefit him and then if this was determined to be the case, I could adjust the shunt at the bedside with a programming device.
--- NOTE | 2018-03-25 14:27 | CONS ---
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 History was obtained from the chart as well as the patient's who was present at the time of the examination. He has a history of dementia and normal-pressure hydrocephalus. The patient had a DEVELOPMENT TECHNOLOGIST shunt inserted in March 2017. At that time, he has had several hospital admissions for altered mental status possibly precipitated by urinary tract infection. The patient's reports that over the past week he has been complaining of generalized pain and has had very little oral intake. In addition, he complained of generalized weakness and lightheadedness. According to the , he had fallen 9 or 10 times at home and had sustained head trauma on the last fall prompting her to come to the emergency room. He also complained of chills and urinary urgency and incontinence. A CT of the head was performed in the emergency room and was negative for acute changes. He has had no documented fever. His white blood cell count is slightly elevated. At the present time, he is awake; however, he appears mildly confused. He offers no focal complaint. Denies any head pain, chest pain, shortness of breath, cough, vomiting, or diarrhea. He complaints of dysuria or hematuria. PAST MEDICAL HISTORY: Positive for dementia, normal-pressure hydrocephalus, coronary artery disease, hypertension, chronic kidney disease, colon cancer, gouty arthritis. PAST SURGICAL HISTORY: Status post DEVELOPMENT TECHNOLOGIST shunt March 2017, coronary artery bypass, prostate surgery. ALLERGIES: No known allergies. MEDICATIONS: Presently include ceftriaxone, Tylenol, aspirin, Klonopin, heparin, hydrochlorothiazide, meclizine, multivitamins, Crestor, Flomax. SOCIAL HISTORY: Lives at home with his significant other. Nonsmoker. Nondrinker. SYSTEMS REVIEW: Neurologic: As per HPI. Cardiac: Negative chest pain or palpitations. Respiratory: Negative cough or sputum production. Gastrointestinal: Negative vomiting or diarrhea. Genitourinary: As per HPI. LABORATORY DATA: White blood cell count 13.3, hematocrit 39.9, platelet count 177, BUN 53, creatinine 2.6, CPK 3466. Urinalysis 14 white cells. Influenza swab negative. Throat culture negative. Chest x-ray negative for acute infiltrate. PHYSICAL EXAMINATION: General: He is awake in no acute distress. Vital Signs: Temperature 97.6, blood pressure 154/79, pulse 65 and regular, respirations 18 per minute. HEENT: Sclerae anicteric. Neck: Supple. There is a palpable shunt present in the right occipital area. No erythema or tenderness. Heart: Sounds S1, S2. Lungs: Clear. Abdomen: Obese, soft, nontender. Extremities: Negative for edema. The right lower extremity seems slightly larger than the left lower extremity; however, there is no calf tenderness present. IMPRESSION: 1. Rule out toxic metabolic encephalopathy secondary to sepsis. 2. Leukocytosis. 3. Recurrent falls. 4. Normal-pressure hydrocephalus status post ventriculoperitoneal shunt. 5. Azotemia. PLAN: Await culture results. Empiric antibiotic coverage with ceftriaxone. We will obtain Doppler exam of the right lower extremity. Neurosurgical evaluation. Case discussed with the patient's present at the time of the examination. Thank you for the kind referral. RAYMOND PAK M.D. [id number]
--- NOTE | 2018-03-25 14:31 | CONS ---
DATE OF CONSULTATION: 03/25/2018 HISTORY OF PRESENT ILLNESS: The patient is an 87-year-old man who presented to the emergency room on or about March 23, 2018 complaining of multiple problems including frequent falls, dizziness, and chest pain. The patient has a history of dementia, chronic kidney disease, hypertension, coronary artery disease. The patient had a right ADJUNCT PHYSICS INSTRUCTOR shunt noted on CT of the head, small hypodensity in the anterior portion of the right lateral ventricle, mild periventricular hypodensities possibly due to mild chronic small vessel ischemic changes. ADJUNCT PHYSICS INSTRUCTOR shunt appeared to be in good position. The patient is followed by Cardiology and states he is feeling improved. He has a little bit of jaw pain on the left side. His heart rate currently is not bradycardic in the low 60s, per Cardiology consult. Would check orthostatics. The patient had elevation in his BUN 59 on admission to creatinine 2.9. Repeat blood work yesterday elevated BUN 53 to creatinine 2.6. Otherwise, chemistry showed elevated creatinine on admission 35/60. As of March 24 was 34/66. His troponins were elevated at 0.15 and 0.16. His albumin was normal at 3.6. The patient has yet to be seen by physical therapy. PAST MEDICAL HISTORY: As above. Dementia, hypertension, coronary artery disease, chronic kidney disease, colon cancer, gout. PAST SURGICAL HISTORY: As above. SOCIAL HISTORY: Per the patient, lives with family in a private house. Eight steps to enter. Premorbidly independent, but again, he is demented and hard to know if he is accurate. He has not received any physical therapy on this admission. REVIEW OF SYSTEMS: He denies any current lightheadedness dizziness, any blurry vision, double vision, any nausea or vomiting. He does have difficulty swallowing and jaw pain on the left side. No current chest pain or shortness of breath. He states he has arthritic problems with his knees at times but no current pain. No fever or chills. No skin rash or breakdown. PHYSICAL EXAMINATION: General: The patient is seen lying in bed. He is in no acute distress. He is awake and cooperative. HEENT: He is normocephalic and atraumatic. His extraocular muscles appear intact. He has no obvious facial weakness. No oral ulcers. Neck: Supple. Extremities: Without any pitting edema or calf tenderness. Skin: Without any rash or breakdown. No heel erythema or breakdown. Neuromuscular: He is awake and alert. He is oriented to person and place but does not know the month. Cranial nerves 2-12 appear grossly intact. He has good strength and range in his upper and lower extremities without any gross arthritic changes. Normal sensation to light touch and pinprick. Toes appear equivocal. Reflexes symmetric. Unable to stand or ambulate him at this time. OVERALL IMPRESSION: 1. Deficits in mobility and activities of daily living. 2. Multiple falls. 3. History of dementia. 4. History of ventriculoperitoneal shunt, possible normal-pressure hydrocephalus. 5. Coronary artery disease. 6. Status post lightheadedness, check orthostatics. 7. Elevated BUN 53 to creatinine 2.6. 8. Elevated creatinine phosphokinase possibly due to falls. 9. Elevated troponin. 10. Leukocytosis. 11. Elevated risk for deep vein thrombosis due to immobility. PLAN/SUGGESTION: 1. Physical therapy at the bedside for bed mobility, transfers, gait training, strengthening, reconditioning. 2. Agree with subcutaneous heparin. 3. Out of bed to chair. 4. Consider neurologic consultation. 5. Decreased mental status mainly to safety awareness difficulties. 6. Skin precautions. 7. Bowel regimen. 8. May require short-term rehabilitation in a custodial facility prior to discharge home. Thank you for this referral. JOSE E NGO M.D. [id number]
--- NOTE | 2018-03-25 14:47 | PN ---
Progress Note, Physician Chief Complaint: No chest pain or sob Still unsteady on his feet History of Present Illness: 87 year old male with a PMH of ementia, hypertension, CAD, CKA, polycystic kidney disease, colon ca, and gout. As per the patient's at bedside, the patient has fallen about 9 times in the past few days secondary to lightheadedness. No chest pain or SOB. No complaints of palpitations. - Current Medication List Current Medications: Active Medications Acetaminophen (Tylenol -) 650 mg PO Q6H PRN PRN Reason: PAIN LEVEL 1-5 Last Admin: 03/25/18 08:52 Dose: 650 mg Albuterol Sulfate (Ventolin 0.083% Nebulizer Soln -) 1 amp NEB Q6H PRN PRN Reason: SHORT OF BREATH/WHEEZING Amino Acids (Prosource No Carb Liquid Pkt) 30 ml PO BID@0800,1730 [facility] Last Admin: 03/25/18 08:52 Dose: 30 ml Ascorbic Acid (Vitamin C -) 250 mg PO DAILY [facility] Last Admin: 03/25/18 09:16 Dose: 250 mg Aspirin (Asa -) 81 mg PO DAILY [facility] Last Admin: 03/25/18 09:12 Dose: 81 mg Benzocaine/Menthol (Cepacol Lozenge -) 1 each MM PRN PRN PRN Reason: SORE THROAT Last Admin: 03/24/18 11:19 Dose: 1 each Clonazepam (Klonopin -) 0.5 mg PO DAILY [facility] Last Admin: 03/25/18 09:12 Dose: 0.5 mg Donepezil HCl (Aricept -) 10 mg PO HS [facility] Last Admin: 03/24/18 23:25 Dose: 10 mg Escitalopram Oxalate (Lexapro -) 10 mg PO DAILY [facility] Last Admin: 03/25/18 09:12 Dose: 10 mg Febuxostat (Uloric -) 40 mg PO DAILY [facility] Last Admin: 03/25/18 10:41 Dose: 40 mg Heparin Sodium (Porcine) (Heparin -) 5,000 unit SQ TID [facility] Last Admin: 03/25/18 13:56 Dose: 5,000 unit Hydralazine HCl (Apresoline -) 10 mg PO BID [facility] Last Admin: 03/25/18 09:12 Dose: 10 mg Ceftriaxone Sodium 1 gm/ (Dextrose) 50 mls @ 100 mls/hr IVPB DAILY [facility]; Protocol Last Admin: 03/25/18 09:12 Dose: 100 mls/hr Dextrose/Sodium Chloride (D5-1/2ns -) 1,000 mls @ 50 mls/hr IV ASDIR [facility] Last Admin: 03/24/18 22:54 Dose: 50 mls/hr Meclizine HCl (Antivert -) 25 mg PO TID [facility] Last Admin: 03/25/18 13:56 Dose: 25 mg Memantine (Namenda -) 5 mg PO BID [facility] Last Admin: 03/25/18 09:12 Dose: 5 mg Methyl Salicylate (Morro-Andrea -) 1 applic TP BID [facility] Last Admin: 03/25/18 09:13 Dose: 1 applic Multivitamins/Minerals/Vitamin C (Tab-A-Vit -) 1 tab PO DAILY [facility] Last Admin: 03/25/18 09:12 Dose: 1 tab Nebivolol (Bystolic -) 5 mg PO DAILY [facility] Last Admin: 03/25/18 09:14 Dose: 5 mg Non-Formulary Medication (Mirabegron [Myrbetriq]) 25 mg PO DAILY [facility] Nystatin/Triamcinolone Acetonide (Mycolog Ii Cream -) 1 applic TP BID [facility] Last Admin: 03/25/18 09:15 Dose: 1 applic Olanzapine (Zyprexa -) 5 mg PO HS [facility] Last Admin: 03/24/18 23:26 Dose: 5 mg Pantoprazole Sodium (Protonix -) 40 mg PO DAILY [facility] Last Admin: 03/25/18 09:12 Dose: 40 mg Rosuvastatin Calcium (Crestor -) 20 mg PO HS [facility] Last Admin: 03/24/18 23:25 Dose: 20 mg Tamsulosin HCl (Flomax -) 0.4 mg PO DAILY@0830 [facility] Last Admin: 03/25/18 08:52 Dose: 0.4 mg - Objective Vital Signs: Vital Signs Temperature 97.8 F 03/25/18 13:30 Pulse Rate 70 03/25/18 13:30 Respiratory Rate 16 03/25/18 13:30 Blood Pressure 104/45 L 03/25/18 13:30 O2 Sat by Pulse Oximetry (%) 95 03/25/18 09:00 Constitutional: Yes: No Distress Cardiovascular: Yes: Regular Rate and Rhythm, Murmur (+2/6 HSM RUSB), S1, S2. No: JVD Respiratory: Yes: CTA Bilaterally Gastrointestinal: Yes: Soft Edema: No Labs: CBC, BMP 03/24/18 08:10 03/25/18 12:25 INR, PTT INR 1.03 (0.83-1.09) 03/23/18 23:15 Assessment/Plan 87 year old male with a PMH of dementia, hypertension, CAD, CKA, polycystic kidney disease, colon ca, h/o REED PRESS FEEDER shunt, and gout. As per the patient's at bedside, the patient has fallen about 9 times in the past few days secondary to unsteadiness. No chest pain or SOB. No complaints of palpitations. Echocardiogram 03/2017 with normal LVEF and mild /mild MR/mild TR Lightheadedness/unsteadiness. -Unlikely to be cardiac in nature given that seems like symptom is that patient cannot get up out of bed without feeling extremely unsteady and falling. HR on tele sinus 40s-70s. Will continue telemetry and decrease/stop beta wing if needed based on HR. encourage bedside PO water intake Consider an alternative to Tamsulosin because the alpha blockers can contribute to lightheadedness -Found to have carotid stenosis but unclear if related to symptoms. F/u vascular and neuro. F/u neuro regarding history of REED PRESS FEEDER shunt
--- NOTE | 2018-03-25 15:19 | PN ---
Progress Note, Physician History of Present Illness: Pt seen and examined at bedside. He is awake and alert. He feels that his appetite is improved. - Current Medication List Current Medications: Active Medications Acetaminophen (Tylenol -) 650 mg PO Q6H PRN PRN Reason: PAIN LEVEL 1-5 Last Admin: 03/25/18 08:52 Dose: 650 mg Albuterol Sulfate (Ventolin 0.083% Nebulizer Soln -) 1 amp NEB Q6H PRN PRN Reason: SHORT OF BREATH/WHEEZING Amino Acids (Prosource No Carb Liquid Pkt) 30 ml PO BID@0800,1730 [facility] Last Admin: 03/25/18 08:52 Dose: 30 ml Ascorbic Acid (Vitamin C -) 250 mg PO DAILY [facility] Last Admin: 03/25/18 09:16 Dose: 250 mg Aspirin (Asa -) 81 mg PO DAILY [facility] Last Admin: 03/25/18 09:12 Dose: 81 mg Benzocaine/Menthol (Cepacol Lozenge -) 1 each MM PRN PRN PRN Reason: SORE THROAT Last Admin: 03/24/18 11:19 Dose: 1 each Clonazepam (Klonopin -) 0.5 mg PO DAILY [facility] Last Admin: 03/25/18 09:12 Dose: 0.5 mg Donepezil HCl (Aricept -) 10 mg PO HS [facility] Last Admin: 03/24/18 23:25 Dose: 10 mg Escitalopram Oxalate (Lexapro -) 10 mg PO DAILY [facility] Last Admin: 03/25/18 09:12 Dose: 10 mg Febuxostat (Uloric -) 40 mg PO DAILY [facility] Last Admin: 03/25/18 10:41 Dose: 40 mg Heparin Sodium (Porcine) (Heparin -) 5,000 unit SQ TID [facility] Last Admin: 03/25/18 13:56 Dose: 5,000 unit Hydralazine HCl (Apresoline -) 10 mg PO BID [facility] Last Admin: 03/25/18 09:12 Dose: 10 mg Ceftriaxone Sodium 1 gm/ (Dextrose) 50 mls @ 100 mls/hr IVPB DAILY [facility]; Protocol Last Admin: 03/25/18 09:12 Dose: 100 mls/hr Dextrose/Sodium Chloride (D5-1/2ns -) 1,000 mls @ 50 mls/hr IV ASDIR [facility] Last Admin: 03/24/18 22:54 Dose: 50 mls/hr Meclizine HCl (Antivert -) 25 mg PO TID [facility] Last Admin: 03/25/18 13:56 Dose: 25 mg Memantine (Namenda -) 5 mg PO BID [facility] Last Admin: 03/25/18 09:12 Dose: 5 mg Methyl Salicylate (Morro-Andrea -) 1 applic TP BID [facility] Last Admin: 03/25/18 09:13 Dose: 1 applic Multivitamins/Minerals/Vitamin C (Tab-A-Vit -) 1 tab PO DAILY [facility] Last Admin: 03/25/18 09:12 Dose: 1 tab Nebivolol (Bystolic -) 5 mg PO DAILY [facility] Last Admin: 03/25/18 09:14 Dose: 5 mg Non-Formulary Medication (Mirabegron [Myrbetriq]) 25 mg PO DAILY [facility] Nystatin/Triamcinolone Acetonide (Mycolog Ii Cream -) 1 applic TP BID [facility] Last Admin: 03/25/18 09:15 Dose: 1 applic Olanzapine (Zyprexa -) 5 mg PO HS [facility] Last Admin: 03/24/18 23:26 Dose: 5 mg Pantoprazole Sodium (Protonix -) 40 mg PO DAILY [facility] Last Admin: 03/25/18 09:12 Dose: 40 mg Rosuvastatin Calcium (Crestor -) 20 mg PO HS [facility] Last Admin: 03/24/18 23:25 Dose: 20 mg Tamsulosin HCl (Flomax -) 0.4 mg PO DAILY@0830 [facility] Last Admin: 03/25/18 08:52 Dose: 0.4 mg - Objective Vital Signs: Vital Signs Temperature 97.8 F 03/25/18 13:30 Pulse Rate 70 03/25/18 13:30 Respiratory Rate 16 03/25/18 13:30 Blood Pressure 104/45 L 03/25/18 13:30 O2 Sat by Pulse Oximetry (%) 95 03/25/18 09:00 Constitutional: Yes: Calm Eyes: Yes: Conjunctiva Clear HENT: Yes: Atraumatic Cardiovascular: Yes: S1, S2 Respiratory: Yes: CTA Bilaterally Gastrointestinal: Yes: Soft Genitourinary: Yes: WNL Musculoskeletal: Yes: Muscle Weakness Edema: No Neurological: Yes: Oriented, Pre-Existing Deficit Labs: CBC, BMP 03/24/18 08:10 03/25/18 12:25 INR, PTT INR 1.03 (0.83-1.09) 03/23/18 23:15 Problem List - Problems (1) Syncope Code(s): R55 - SYNCOPE AND COLLAPSE (2) GARRISON (acute kidney injury) Code(s): N17.9 - ACUTE KIDNEY FAILURE, UNSPECIFIED (3) CKD (chronic kidney disease) Code(s): N18.9 - CHRONIC KIDNEY DISEASE, UNSPECIFIED Assessment/Plan Current Medications Generic Name Dose Route Start Last Admin Trade Name Freq PRN Reason Stop Dose Admin Acetaminophen 650 mg 03/24/18 09:44 03/25/18 08:52 Tylenol - PO 650 mg Q6H PRN Administration PAIN LEVEL 1-5 Albuterol Sulfate 1 amp 03/24/18 09:44 Ventolin 0.083% Nebulizer Soln - NEB Q6H PRN SHORT OF BREATH/WHEEZING Amino Acids 30 ml 03/24/18 17:30 03/25/18 08:52 Prosource No Carb Liquid Pkt PO 30 ml BID@0800,1730 [facility] Administration Ascorbic Acid 250 mg 03/24/18 10:00 03/25/18 09:16 Vitamin C - PO 250 mg DAILY [facility] Administration Aspirin 81 mg 03/24/18 10:00 03/25/18 09:12 Asa - PO 81 mg DAILY [facility] Administration Benzocaine/Menthol 1 each 03/24/18 03:56 03/24/18 11:19 Cepacol Lozenge - MM 1 each PRN PRN Administration SORE THROAT Clonazepam 0.5 mg 03/24/18 10:00 03/25/18 09:12 Klonopin - PO 0.5 mg DAILY [facility] Administration Donepezil HCl 10 mg 03/24/18 22:00 03/24/18 23:25 Aricept - PO 10 mg HS [facility] Administration Escitalopram Oxalate 10 mg 03/24/18 10:00 03/25/18 09:12 Lexapro - PO 10 mg DAILY [facility] Administration Febuxostat 40 mg 03/24/18 10:00 03/25/18 10:41 Uloric - PO 40 mg DAILY [facility] Administration Heparin Sodium (Porcine) 5,000 unit 03/24/18 00:02 03/25/18 13:56 Heparin - SQ 5,000 unit TID [facility] Administration Hydralazine HCl 10 mg 03/24/18 10:00 03/25/18 09:12 Apresoline - PO 10 mg BID [facility] Administration Ceftriaxone Sodium 1 gm/ 50 mls @ 100 mls/hr 03/24/18 04:00 03/25/18 09:12 Dextrose IVPB 100 mls/hr DAILY [facility] Administration Protocol Dextrose/Sodium Chloride 1,000 mls @ 50 mls/hr 03/24/18 15:45 03/24/18 22:54 D5-1/2ns - IV 50 mls/hr ASDIR [facility] Administration Meclizine HCl 25 mg 03/24/18 14:00 03/25/18 13:56 Antivert - PO 25 mg TID [facility] Administration Memantine 5 mg 03/24/18 10:00 03/25/18 09:12 Namenda - PO 5 mg BID [facility] Administration Methyl Salicylate 1 applic 03/24/18 10:00 03/25/18 09:13 Morro-Andrea - TP 1 applic BID [facility] Administration Multivitamins/Minerals/Vitamin C 1 tab 03/24/18 10:00 03/25/18 09:12 Tab-A-Vit - PO 1 tab DAILY [facility] Administration Nebivolol 5 mg 03/24/18 10:00 03/25/18 09:14 Bystolic - PO 5 mg DAILY [facility] Administration Non-Formulary Medication 25 mg 03/24/18 10:00 Mirabegron [Myrbetriq] PO DAILY [facility] Nystatin/Triamcinolone Acetonide 1 applic 03/24/18 10:00 03/25/18 09:15 Mycolog Ii Cream - TP 1 applic BID [facility] Administration Olanzapine 5 mg 03/24/18 22:00 03/24/18 23:26 Zyprexa - PO 5 mg HS [facility] Administration Pantoprazole Sodium 40 mg 03/24/18 10:00 03/25/18 09:12 Protonix - PO 40 mg DAILY [facility] Administration Rosuvastatin Calcium 20 mg 03/24/18 22:00 03/24/18 23:25 Crestor - PO 20 mg HS [facility] Administration Tamsulosin HCl 0.4 mg 03/25/18 08:30 03/25/18 08:52 Flomax - PO 0.4 mg DAILY@0830 [facility] Administration Impression 1. CKD 2. PKD 3. dizziness 4. HTN 5. weakness 6. loss of appetite 7. prostate cancer 8. dementia 9. hyperlipidemia 10. GARRISON 11. 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
--- NOTE | 2018-03-25 16:28 | EKG ---
Test Reason : Blood Pressure : / mmHG Vent. 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
[2018-03-25] MEDS: OLANZapine 5 MG TABLET PO SCH (21:07)
[2018-03-25] MEDS: ROSUVASTATIN CA 20 MG TABLET (FP) PO SCH (21:07)
[2018-03-25] MEDS: DONEPEZIL HCL 10 MG TABLET (FP) PO SCH (21:08)
[2018-03-26] MEDS: MECLIZINE HCL 25 MG TABLET (FP) PO SCH ×4 (05:51→21:17)
[2018-03-26] MEDS: HEPARIN NA (PORCINE) 5,000 UNITS/ML 1ML VIAL SQ SCH ×4 (05:51→21:17)
[2018-03-26 06:10] LABS: HEMATOCRIT 36.5 % (35.4-49); HEMOGLOBIN 11.4 GM/dL (11.7-16.9); MCH 24.3 pg (25.7-33.7); MCHC 31.2 g/dl (32.0-35.9); MEAN CELL VOLUME 77.8 fl (80-96); MEAN PLT VOLUME 9.9 fl (7.5-11.1); PLATELET COUNT 147 K/MM3 (134-434); RBC 4.69 M/mm3 (4.00-5.60); RDW 14.8 % (11.9-15.9); WHITE BLOOD COUNT 8.4 K/mm3 (4.0-10.0)
[2018-03-26 07:20] LABS: ANION GAP 9 MMOL/L (8-16); BLOOD UREA NITROGEN 60 mg/dL (7-18); CALCIUM 8.2 mg/dL (8.5-10.1); CHLORIDE 112 mmol/L (98-107); CO2 21 mmol/L (21-32); CREATININE 2.2 mg/dL (0.55-1.3); GLUCOSE,RANDOM 87 mg/dL (74-106); PHOSPHOROUS 4.5 mg/dL (2.5-4.9); POTASSIUM 4.2 mmol/L (3.5-5.1); SODIUM 141 mmol/L (136-145)
[2018-03-26] MEDS ORDERED: PT OWN MED DRAWER 7, Y5N ONE ×3 (08:21→21:15)
[2018-03-26] MEDS ORDERED: cefTRIAXone SODIUM 1 GM VIAL ONE (08:21)
[2018-03-26] MEDS ORDERED: DEXTROSE 5%-WATER - 50 ML IVPB ONE (08:21)
[2018-03-26] MEDS: ACETAMINOPHEN 325 MG TABLET (FP) PO PRN ×3 (08:29→21:17)
[2018-03-26] MEDS: TAMSULOSIN HCL 0.4 MG CAP PO SCH (08:29)
[2018-03-26] MEDS: AMINO ACIDS/PROTEIN HYDROLYS 30 ML LIQUID.PKT PO SCH ×2 (08:29→17:56)
[2018-03-26] MEDS: CEFTRIAXONE 1 GM in DEXTROSE 5%-WATER - 50 ML IVPB SCH (09:11)
[2018-03-26] MEDS: METHYL SALICYLATE/MENTHOL OINT 30 GM TUBE TP SCH ×2 (09:12→21:18)
[2018-03-26] MEDS: MEMANTINE HCL 5 MG TABLET (UD) PO SCH ×2 (09:12→21:17)
[2018-03-26] MEDS: ASCORBIC ACID 250 MG TABLET (FP) PO SCH (09:12)
[2018-03-26] MEDS: MULTIVITAMINS (DAILY MVI) TABLET (FP) PO SCH (09:12)
[2018-03-26] MEDS: PANTOPRAZOLE 40 MG TABLET (FP) PO SCH (09:12)
[2018-03-26] MEDS: ASPIRIN 81 MG CHEWABLE TABLETS PO SCH (09:12)
[2018-03-26] MEDS: FEBUXOSTAT 40 MG TAB PO SCH (09:12)
[2018-03-26] MEDS: ESCITALOPRAM OXALATE 10 MG TABLET (FP) PO SCH (09:12)
[2018-03-26] MEDS: clonazePAM 0.5 MG TABLET PO SCH (09:12)
[2018-03-26] MEDS: NEBIVOLOL 5 MG TABLET (FP) PO SCH (09:12)
[2018-03-26] MEDS: NYSTATIN/TRIAMCINOLONE TOPICAL CREAM 15 GM TUBE TP SCH ×2 (09:13→21:19)
[2018-03-26] MEDS: hydrALAZINE HCL 10 MG TABLET PO SCH ×2 (09:13→21:18)
--- NOTE | 2018-03-26 12:35 | PN ---
Progress Note, Physician Chief Complaint: less sob tele off, alarm shows artifact. History of Present Illness: 87 year old male with a PMH of dementia, hypertension, CAD, CKA, polycystic kidney disease, colon ca, h/o [employer] shunt, and gout. As per the patient's at bedside, the patient has fallen about 9 times in the past few days secondary to unsteadiness. No chest pain or SOB. No complaints of palpitations. Echocardiogram 03/2017 with normal LVEF and mild /mild MR/mild TR - Current Medication List Current Medications: Active Medications Acetaminophen (Tylenol -) 650 mg PO Q6H PRN PRN Reason: PAIN LEVEL 1-5 Last Admin: 03/26/18 08:29 Dose: 650 mg Albuterol Sulfate (Ventolin 0.083% Nebulizer Soln -) 1 amp NEB Q6H PRN PRN Reason: SHORT OF BREATH/WHEEZING Amino Acids (Prosource No Carb Liquid Pkt) 30 ml PO BID@0800,1730 [facility] Last Admin: 03/26/18 08:29 Dose: 30 ml Ascorbic Acid (Vitamin C -) 250 mg PO DAILY [facility] Last Admin: 03/26/18 09:12 Dose: 250 mg Aspirin (Asa -) 81 mg PO DAILY [facility] Last Admin: 03/26/18 09:12 Dose: 81 mg Benzocaine/Menthol (Cepacol Lozenge -) 1 each MM PRN PRN PRN Reason: SORE THROAT Last Admin: 03/24/18 11:19 Dose: 1 each Clonazepam (Klonopin -) 0.5 mg PO DAILY [facility] Last Admin: 03/26/18 09:12 Dose: 0.5 mg Donepezil HCl (Aricept -) 10 mg PO HS [facility] Last Admin: 03/25/18 21:08 Dose: 10 mg Escitalopram Oxalate (Lexapro -) 10 mg PO DAILY [facility] Last Admin: 03/26/18 09:12 Dose: 10 mg Febuxostat (Uloric -) 40 mg PO DAILY [facility] Last Admin: 03/26/18 09:12 Dose: 40 mg Heparin Sodium (Porcine) (Heparin -) 5,000 unit SQ TID [facility] Last Admin: 03/26/18 05:51 Dose: 5,000 unit Hydralazine HCl (Apresoline -) 10 mg PO BID [facility] Last Admin: 03/26/18 09:13 Dose: 10 mg Ceftriaxone Sodium 1 gm/ (Dextrose) 50 mls @ 100 mls/hr IVPB DAILY [facility]; Protocol Last Admin: 03/26/18 09:11 Dose: 100 mls/hr Meclizine HCl (Antivert -) 25 mg PO TID [facility] Last Admin: 03/26/18 05:51 Dose: 25 mg Memantine (Namenda -) 5 mg PO BID [facility] Last Admin: 03/26/18 09:12 Dose: 5 mg Methyl Salicylate (Morro-Andrea -) 1 applic TP BID [facility] Last Admin: 03/26/18 09:12 Dose: 1 applic Multivitamins/Minerals/Vitamin C (Tab-A-Vit -) 1 tab PO DAILY [facility] Last Admin: 03/26/18 09:12 Dose: 1 tab Nebivolol (Bystolic -) 5 mg PO DAILY [facility] Last Admin: 03/26/18 09:12 Dose: 5 mg Non-Formulary Medication (Mirabegron [Myrbetriq]) 25 mg PO DAILY [facility] Nystatin/Triamcinolone Acetonide (Mycolog Ii Cream -) 1 applic TP BID [facility] Last Admin: 03/26/18 09:13 Dose: 1 applic Olanzapine (Zyprexa -) 5 mg PO HS [facility] Last Admin: 03/25/18 21:07 Dose: 5 mg Pantoprazole Sodium (Protonix -) 40 mg PO DAILY [facility] Last Admin: 03/26/18 09:12 Dose: 40 mg Rosuvastatin Calcium (Crestor -) 20 mg PO HS [facility] Last Admin: 03/25/18 21:07 Dose: 20 mg Tamsulosin HCl (Flomax -) 0.4 mg PO DAILY@0830 [facility] Last Admin: 03/26/18 08:29 Dose: 0.4 mg - Objective Vital Signs: Vital Signs Temperature 97.8 F 03/26/18 10:00 Pulse Rate 75 03/26/18 10:00 Respiratory Rate 20 03/26/18 10:00 Blood Pressure 146/55 L 03/26/18 10:00 O2 Sat by Pulse Oximetry (%) 93 L 03/26/18 10:00 Constitutional: Yes: No Distress, Calm Eyes: Yes: Conjunctiva Clear, EOM Intact HENT: Yes: Atraumatic, Normocephalic Neck: Yes: Supple, Trachea Midline Cardiovascular: Yes: Regular Rate and Rhythm Respiratory: Yes: CTA Bilaterally Gastrointestinal: Yes: Normal Bowel Sounds, Soft Musculoskeletal: Yes: WNL Extremities: Yes: WNL Edema: No Peripheral Pulses WNL: Yes Labs: CBC, BMP 03/26/18 06:00 03/26/18 06:00 INR, PTT INR 1.03 (0.83-1.09) 03/23/18 23:15 Assessment/Plan 87 year old male with a PMH of dementia, hypertension, CAD, CKA, polycystic kidney disease, colon ca, h/o [employer] shunt, and gout. As per the patient's at bedside, the patient has fallen about 9 times in the past few days secondary to unsteadiness. No chest pain or SOB. No complaints of palpitations. Echocardiogram 03/2017 with normal LVEF and mild /mild MR/mild TR Lightheadedness/unsteadiness. -Unlikely to be cardiac in nature given that seems like symptom is that patient cannot get up out of bed without feeling extremely unsteady and falling. HR on tele sinus 40s-70s. Will continue telemetry and decrease/stop beta wing if needed based on HR. encourage bedside PO water intake Consider an alternative to Tamsulosin because the alpha blockers can contribute to lightheadedness. -Found to have carotid stenosis but unclear if related to symptoms. F/u vascular and neuro. F/u neuro regarding history of [employer] shunt This is the likely cause of his lightheadedness. continue telemetry one more day.
--- NOTE | 2018-03-26 12:42 | PN ---
Progress Note, Physician History of Present Illness: C/O pain L neck No c/o sore throat No c/o fever/ chills Seated in bed eating lunch Afebrile WBC improved Neurosurgical follow up appreciated - Current Medication List Current Medications: Active Medications Acetaminophen (Tylenol -) 650 mg PO Q6H PRN PRN Reason: PAIN LEVEL 1-5 Last Admin: 03/26/18 08:29 Dose: 650 mg Albuterol Sulfate (Ventolin 0.083% Nebulizer Soln -) 1 amp NEB Q6H PRN PRN Reason: SHORT OF BREATH/WHEEZING Amino Acids (Prosource No Carb Liquid Pkt) 30 ml PO BID@0800,1730 [facility] Last Admin: 03/26/18 08:29 Dose: 30 ml Ascorbic Acid (Vitamin C -) 250 mg PO DAILY [facility] Last Admin: 03/26/18 09:12 Dose: 250 mg Aspirin (Asa -) 81 mg PO DAILY [facility] Last Admin: 03/26/18 09:12 Dose: 81 mg Benzocaine/Menthol (Cepacol Lozenge -) 1 each MM PRN PRN PRN Reason: SORE THROAT Last Admin: 03/24/18 11:19 Dose: 1 each Clonazepam (Klonopin -) 0.5 mg PO DAILY [facility] Last Admin: 03/26/18 09:12 Dose: 0.5 mg Donepezil HCl (Aricept -) 10 mg PO HS [facility] Last Admin: 03/25/18 21:08 Dose: 10 mg Escitalopram Oxalate (Lexapro -) 10 mg PO DAILY [facility] Last Admin: 03/26/18 09:12 Dose: 10 mg Febuxostat (Uloric -) 40 mg PO DAILY [facility] Last Admin: 03/26/18 09:12 Dose: 40 mg Heparin Sodium (Porcine) (Heparin -) 5,000 unit SQ TID [facility] Last Admin: 03/26/18 05:51 Dose: 5,000 unit Hydralazine HCl (Apresoline -) 10 mg PO BID [facility] Last Admin: 03/26/18 09:13 Dose: 10 mg Ceftriaxone Sodium 1 gm/ (Dextrose) 50 mls @ 100 mls/hr IVPB DAILY [facility]; Protocol Last Admin: 03/26/18 09:11 Dose: 100 mls/hr Meclizine HCl (Antivert -) 25 mg PO TID [facility] Last Admin: 03/26/18 05:51 Dose: 25 mg Memantine (Namenda -) 5 mg PO BID [facility] Last Admin: 03/26/18 09:12 Dose: 5 mg Methyl Salicylate (Morro-Andrea -) 1 applic TP BID [facility] Last Admin: 03/26/18 09:12 Dose: 1 applic Multivitamins/Minerals/Vitamin C (Tab-A-Vit -) 1 tab PO DAILY [facility] Last Admin: 03/26/18 09:12 Dose: 1 tab Nebivolol (Bystolic -) 5 mg PO DAILY [facility] Last Admin: 03/26/18 09:12 Dose: 5 mg Non-Formulary Medication (Mirabegron [Myrbetriq]) 25 mg PO DAILY [facility] Nystatin/Triamcinolone Acetonide (Mycolog Ii Cream -) 1 applic TP BID [facility] Last Admin: 03/26/18 09:13 Dose: 1 applic Olanzapine (Zyprexa -) 5 mg PO HS [facility] Last Admin: 03/25/18 21:07 Dose: 5 mg Pantoprazole Sodium (Protonix -) 40 mg PO DAILY [facility] Last Admin: 03/26/18 09:12 Dose: 40 mg Rosuvastatin Calcium (Crestor -) 20 mg PO HS [facility] Last Admin: 03/25/18 21:07 Dose: 20 mg Tamsulosin HCl (Flomax -) 0.4 mg PO DAILY@0830 [facility] Last Admin: 03/26/18 08:29 Dose: 0.4 mg - Objective Vital Signs: Vital Signs Temperature 97.8 F 03/26/18 10:00 Pulse Rate 75 03/26/18 10:00 Respiratory Rate 20 03/26/18 10:00 Blood Pressure 146/55 L 03/26/18 10:00 O2 Sat by Pulse Oximetry (%) 93 L 03/26/18 10:00 Constitutional: Yes: No Distress Eyes: Yes: Conjunctiva Clear HENT: Yes: Other (no tenderness/ swelling L neck) Cardiovascular: Yes: Regular Rate and Rhythm, S1, S2 Respiratory: Yes: CTA Bilaterally Gastrointestinal: Yes: Normal Bowel Sounds, Soft. No: Tenderness Edema: No Labs: CBC, BMP 03/26/18 06:00 03/26/18 06:00 INR, PTT INR 1.03 (0.83-1.09) 03/23/18 23:15 Assessment/Plan R/O toxic metabolic encephalopathy Recurrent falls NPH/[employer] OF [employer] shunt Azotemia-improved Await c/s Continue empiric ceftriaxone
[2018-03-26] MEDS ORDERED: PHENOL 177 ML SPRAY BOTTLE MM PRN (13:26)
--- NOTE | 2018-03-26 13:26 | PN ---
Progress Note, Physician Chief Complaint: AWAKE ALERT C/O LEFT SIDED NECK PAIN STILL WEAK AND UNSTEADY WITH HIS GAIT - Current Medication List Current Medications: Active Medications Acetaminophen (Tylenol -) 650 mg PO Q6H PRN PRN Reason: PAIN LEVEL 1-5 Last Admin: 03/26/18 08:29 Dose: 650 mg Albuterol Sulfate (Ventolin 0.083% Nebulizer Soln -) 1 amp NEB Q6H PRN PRN Reason: SHORT OF BREATH/WHEEZING Amino Acids (Prosource No Carb Liquid Pkt) 30 ml PO BID@0800,1730 [facility] Last Admin: 03/26/18 08:29 Dose: 30 ml Ascorbic Acid (Vitamin C -) 250 mg PO DAILY [facility] Last Admin: 03/26/18 09:12 Dose: 250 mg Aspirin (Asa -) 81 mg PO DAILY [facility] Last Admin: 03/26/18 09:12 Dose: 81 mg Benzocaine/Menthol (Cepacol Lozenge -) 1 each MM PRN PRN PRN Reason: SORE THROAT Last Admin: 03/24/18 11:19 Dose: 1 each Clonazepam (Klonopin -) 0.5 mg PO DAILY [facility] Last Admin: 03/26/18 09:12 Dose: 0.5 mg Donepezil HCl (Aricept -) 10 mg PO HS [facility] Last Admin: 03/25/18 21:08 Dose: 10 mg Escitalopram Oxalate (Lexapro -) 10 mg PO DAILY [facility] Last Admin: 03/26/18 09:12 Dose: 10 mg Febuxostat (Uloric -) 40 mg PO DAILY [facility] Last Admin: 03/26/18 09:12 Dose: 40 mg Heparin Sodium (Porcine) (Heparin -) 5,000 unit SQ TID [facility] Last Admin: 03/26/18 05:51 Dose: 5,000 unit Hydralazine HCl (Apresoline -) 10 mg PO BID [facility] Last Admin: 03/26/18 09:13 Dose: 10 mg Ceftriaxone Sodium 1 gm/ (Dextrose) 50 mls @ 100 mls/hr IVPB DAILY [facility]; Protocol Last Admin: 03/26/18 09:11 Dose: 100 mls/hr Meclizine HCl (Antivert -) 25 mg PO TID [facility] Last Admin: 03/26/18 05:51 Dose: 25 mg Memantine (Namenda -) 5 mg PO BID [facility] Last Admin: 03/26/18 09:12 Dose: 5 mg Methyl Salicylate (Morro-Andrea -) 1 applic TP BID [facility] Last Admin: 03/26/18 09:12 Dose: 1 applic Multivitamins/Minerals/Vitamin C (Tab-A-Vit -) 1 tab PO DAILY [facility] Last Admin: 03/26/18 09:12 Dose: 1 tab Nebivolol (Bystolic -) 5 mg PO DAILY [facility] Last Admin: 03/26/18 09:12 Dose: 5 mg Non-Formulary Medication (Mirabegron [Myrbetriq]) 25 mg PO DAILY [facility] Nystatin/Triamcinolone Acetonide (Mycolog Ii Cream -) 1 applic TP BID [facility] Last Admin: 03/26/18 09:13 Dose: 1 applic Olanzapine (Zyprexa -) 5 mg PO HS [facility] Last Admin: 03/25/18 21:07 Dose: 5 mg Pantoprazole Sodium (Protonix -) 40 mg PO DAILY [facility] Last Admin: 03/26/18 09:12 Dose: 40 mg Rosuvastatin Calcium (Crestor -) 20 mg PO HS [facility] Last Admin: 03/25/18 21:07 Dose: 20 mg Tamsulosin HCl (Flomax -) 0.4 mg PO DAILY@0830 [facility] Last Admin: 03/26/18 08:29 Dose: 0.4 mg - Objective Vital Signs: Vital Signs Temperature 97.8 F 03/26/18 10:00 Pulse Rate 75 03/26/18 10:00 Respiratory Rate 20 03/26/18 10:00 Blood Pressure 146/55 L 03/26/18 10:00 O2 Sat by Pulse Oximetry (%) 93 L 03/26/18 10:00 Constitutional: Yes: Mild Distress Eyes: Yes: WNL HENT: Yes: WNL Neck: Yes: WNL Cardiovascular: Yes: Pulse Irregular Respiratory: Yes: WNL Gastrointestinal: Yes: Abdomen, Obese Genitourinary: Yes: Incontinence Musculoskeletal: Yes: Muscle Weakness Extremities: Yes: Other Edema: No Peripheral Pulses WNL: Yes Integumentary: Yes: WNL Wound/Incision: Yes: Clean/Dry Neurological: Yes: Pre-Existing Deficit, Unsteady Gait Psychiatric: Yes: Other Labs: CBC, BMP 03/26/18 06:00 01/01/19 06:00 INR, PTT INR 1.03 (0.83-1.09) 03/23/18 23:15 Problem List - Problems (1) Leukocytosis (leucocytosis) Code(s): D72.829 - ELEVATED WHITE BLOOD CELL COUNT, UNSPECIFIED (2) Syncope Code(s): R55 - SYNCOPE AND COLLAPSE (3) GARRISON (acute kidney injury) Code(s): N17.9 - ACUTE KIDNEY FAILURE, UNSPECIFIED (4) Acute metabolic encephalopathy Code(s): G93.41 - METABOLIC ENCEPHALOPATHY (5) Altered mental status Code(s): R41.82 - ALTERED MENTAL STATUS, UNSPECIFIED (6) CKD (chronic kidney disease) Code(s): N18.9 - CHRONIC KIDNEY DISEASE, UNSPECIFIED (7) Diabetes Code(s): E11.9 - TYPE 2 DIABETES MELLITUS WITHOUT COMPLICATIONS (8) NPH (normal pressure hydrocephalus) Code(s): G91.2 - (IDIOPATHIC) NORMAL PRESSURE HYDROCEPHALUS (9) Unsteady gait Code(s): R26.81 - UNSTEADINESS ON FEET (10) Urinary frequency Code(s): R35.0 - FREQUENCY OF MICTURITION (11) Weakness Code(s): R53.1 - WEAKNESS Assessment/Plan EMPIRIC IV CEFTRIAXONE PER ID AWAIT CX WBC IMPROVING NO FEVERS NPH WITH SHUNT, AWAITING NEUROSURGERY TO INCREASE DRAIN OUTPUT. PT EVAL OOB TO CHAIR NECK PAIN? ETIOLOGY? CEPACOL/CHLORASEPT IF PAIN PERSISTS WILL ORDER CT NECK.
--- NOTE | 2018-03-26 14:08 | PN ---
Progress Note, Physician History of Present Illness: Pt seen and examined at bedside. He is tolerating diet. - Current Medication List Current Medications: Active Medications Acetaminophen (Tylenol -) 650 mg PO Q6H PRN PRN Reason: PAIN LEVEL 1-5 Last Admin: 03/26/18 08:29 Dose: 650 mg Albuterol Sulfate (Ventolin 0.083% Nebulizer Soln -) 1 amp NEB Q6H PRN PRN Reason: SHORT OF BREATH/WHEEZING Amino Acids (Prosource No Carb Liquid Pkt) 30 ml PO BID@0800,1730 [facility] Last Admin: 03/26/18 08:29 Dose: 30 ml Ascorbic Acid (Vitamin C -) 250 mg PO DAILY [facility] Last Admin: 03/26/18 09:12 Dose: 250 mg Aspirin (Asa -) 81 mg PO DAILY [facility] Last Admin: 03/26/18 09:12 Dose: 81 mg Benzocaine/Menthol (Cepacol Lozenge -) 1 each MM PRN PRN PRN Reason: SORE THROAT Last Admin: 03/24/18 11:19 Dose: 1 each Clonazepam (Klonopin -) 0.5 mg PO DAILY [facility] Last Admin: 03/26/18 09:12 Dose: 0.5 mg Donepezil HCl (Aricept -) 10 mg PO HS [facility] Last Admin: 03/25/18 21:08 Dose: 10 mg Escitalopram Oxalate (Lexapro -) 10 mg PO DAILY [facility] Last Admin: 03/26/18 09:12 Dose: 10 mg Febuxostat (Uloric -) 40 mg PO DAILY [facility] Last Admin: 03/26/18 09:12 Dose: 40 mg Heparin Sodium (Porcine) (Heparin -) 5,000 unit SQ TID [facility] Last Admin: 03/26/18 05:51 Dose: 5,000 unit Hydralazine HCl (Apresoline -) 10 mg PO BID [facility] Last Admin: 03/26/18 09:13 Dose: 10 mg Ceftriaxone Sodium 1 gm/ (Dextrose) 50 mls @ 100 mls/hr IVPB DAILY [facility]; Protocol Last Admin: 03/26/18 09:11 Dose: 100 mls/hr Meclizine HCl (Antivert -) 25 mg PO TID [facility] Last Admin: 03/26/18 05:51 Dose: 25 mg Memantine (Namenda -) 5 mg PO BID [facility] Last Admin: 03/26/18 09:12 Dose: 5 mg Methyl Salicylate (Morro-Andrea -) 1 applic TP BID [facility] Last Admin: 03/26/18 09:12 Dose: 1 applic Multivitamins/Minerals/Vitamin C (Tab-A-Vit -) 1 tab PO DAILY [facility] Last Admin: 03/26/18 09:12 Dose: 1 tab Nebivolol (Bystolic -) 5 mg PO DAILY [facility] Last Admin: 03/26/18 09:12 Dose: 5 mg Non-Formulary Medication (Mirabegron [Myrbetriq]) 25 mg PO DAILY [facility] Nystatin/Triamcinolone Acetonide (Mycolog Ii Cream -) 1 applic TP BID [facility] Last Admin: 03/26/18 09:13 Dose: 1 applic Olanzapine (Zyprexa -) 5 mg PO HS [facility] Last Admin: 03/25/18 21:07 Dose: 5 mg Pantoprazole Sodium (Protonix -) 40 mg PO DAILY [facility] Last Admin: 03/26/18 09:12 Dose: 40 mg Phenol/Menthol (Chloraseptic -) 1 spray MM Q6HPO PRN PRN Reason: SORE THROAT Rosuvastatin Calcium (Crestor -) 20 mg PO HS [facility] Last Admin: 03/25/18 21:07 Dose: 20 mg Tamsulosin HCl (Flomax -) 0.4 mg PO DAILY@0830 [facility] Last Admin: 03/26/18 08:29 Dose: 0.4 mg - Objective Vital Signs: Vital Signs Temperature 97.8 F 03/26/18 10:00 Pulse Rate 75 03/26/18 10:00 Respiratory Rate 20 03/26/18 10:00 Blood Pressure 146/55 L 03/26/18 10:00 O2 Sat by Pulse Oximetry (%) 93 L 03/26/18 10:00 Constitutional: Yes: Calm Eyes: Yes: Conjunctiva Clear HENT: Yes: Atraumatic Cardiovascular: Yes: S1, S2 Respiratory: Yes: CTA Bilaterally Gastrointestinal: Yes: Soft, Abdomen, Obese Musculoskeletal: Yes: WNL Edema: Yes Neurological: Yes: Oriented, Pre-Existing Deficit Psychiatric: Yes: Oriented Labs: CBC, BMP 03/26/18 06:00 03/26/18 06:00 INR, PTT INR 1.03 (0.83-1.09) 03/23/18 23:15 Problem List - Problems (1) Syncope Code(s): R55 - SYNCOPE AND COLLAPSE (2) GARRISON (acute kidney injury) Code(s): N17.9 - ACUTE KIDNEY FAILURE, UNSPECIFIED (3) CKD (chronic kidney disease) Code(s): N18.9 - CHRONIC KIDNEY DISEASE, UNSPECIFIED Assessment/Plan Current Medications Generic Name Dose Route Start Last Admin Trade Name Freq PRN Reason Stop Dose Admin Acetaminophen 650 mg 03/24/18 09:44 03/26/18 08:29 Tylenol - PO 650 mg Q6H PRN Administration PAIN LEVEL 1-5 Albuterol Sulfate 1 amp 03/24/18 09:44 Ventolin 0.083% Nebulizer Soln - NEB Q6H PRN SHORT OF BREATH/WHEEZING Amino Acids 30 ml 03/24/18 17:30 03/26/18 08:29 Prosource No Carb Liquid Pkt PO 30 ml BID@0800,1730 [facility] Administration Ascorbic Acid 250 mg 03/24/18 10:00 03/26/18 09:12 Vitamin C - PO 250 mg DAILY [facility] Administration Aspirin 81 mg 03/24/18 10:00 03/26/18 09:12 Asa - PO 81 mg DAILY [facility] Administration Benzocaine/Menthol 1 each 03/24/18 03:56 03/24/18 11:19 Cepacol Lozenge - MM 1 each PRN PRN Administration SORE THROAT Clonazepam 0.5 mg 03/24/18 10:00 03/26/18 09:12 Klonopin - PO 0.5 mg DAILY [facility] Administration Donepezil HCl 10 mg 03/24/18 22:00 03/25/18 21:08 Aricept - PO 10 mg HS [facility] Administration Escitalopram Oxalate 10 mg 03/24/18 10:00 03/26/18 09:12 Lexapro - PO 10 mg DAILY [facility] Administration Febuxostat 40 mg 03/24/18 10:00 03/26/18 09:12 Uloric - PO 40 mg DAILY [facility] Administration Heparin Sodium (Porcine) 5,000 unit 03/24/18 00:02 03/26/18 05:51 Heparin - SQ 5,000 unit TID [facility] Administration Hydralazine HCl 10 mg 03/24/18 10:00 03/26/18 09:13 Apresoline - PO 10 mg BID [facility] Administration Ceftriaxone Sodium 1 gm/ 50 mls @ 100 mls/hr 03/24/18 04:00 03/26/18 09:11 Dextrose IVPB 100 mls/hr DAILY [facility] Administration Protocol Meclizine HCl 25 mg 03/24/18 14:00 03/26/18 05:51 Antivert - PO 25 mg TID [facility] Administration Memantine 5 mg 03/24/18 10:00 03/26/18 09:12 Namenda - PO 5 mg BID [facility] Administration Methyl Salicylate 1 applic 03/24/18 10:00 03/26/18 09:12 Morro-Andrea - TP 1 applic BID [facility] Administration Multivitamins/Minerals/Vitamin C 1 tab 03/24/18 10:00 03/26/18 09:12 Tab-A-Vit - PO 1 tab DAILY [facility] Administration Nebivolol 5 mg 03/24/18 10:00 03/26/18 09:12 Bystolic - PO 5 mg DAILY [facility] Administration Non-Formulary Medication 25 mg 03/24/18 10:00 Mirabegron [Myrbetriq] PO DAILY [facility] Nystatin/Triamcinolone Acetonide 1 applic 03/24/18 10:00 03/26/18 09:13 Mycolog Ii Cream - TP 1 applic BID [facility] Administration Olanzapine 5 mg 03/24/18 22:00 03/25/18 21:07 Zyprexa - PO 5 mg HS [facility] Administration Pantoprazole Sodium 40 mg 03/24/18 10:00 03/26/18 09:12 Protonix - PO 40 mg DAILY [facility] Administration Phenol/Menthol 1 spray 03/26/18 13:26 Chloraseptic - MM Q6HPO PRN SORE THROAT Rosuvastatin Calcium 20 mg 03/24/18 22:00 03/25/18 21:07 Crestor - PO 20 mg HS [facility] Administration Tamsulosin HCl 0.4 mg 03/25/18 08:30 03/26/18 08:29 Flomax - PO 0.4 mg DAILY@0830 [facility] Administration Impression 1. CKD 2. PKD 3. dizziness 4. HTN 5. weakness 6. loss of appetite 7. prostate cancer 8. dementia 9. hyperlipidemia 10. GARRISON 11. 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
--- NOTE | 2018-03-26 20:03 | PN ---
Progress Note (short form) - Note Progress Note: Patient is awake and alert when examined today. He is aware of the date and spontaneously offered "Happy New Years" greetings. He does not complain to me about neck pain, however, I understand that his gait is still impaired. WBC improved and Dr. Moser's note appreciated. Will evaluate shunt pressure setting this week and if patient not improving, will increase drainage slightly. Patient's current condition, clinical course and plans for possible shunt adjustment if no other etiology for his current state is identified discussed with patient and spouse who agree with this plan of care. Will follow.
[2018-03-26] MEDS: BENZOCAINE/MENTH/CETYLPYRD CL 1 EACH LOZENGE MM PRN (20:08)
[2018-03-26] MEDS: OLANZapine 5 MG TABLET PO SCH (21:17)
[2018-03-26] MEDS: ROSUVASTATIN CA 20 MG TABLET (FP) PO SCH (21:18)
[2018-03-26] MEDS: DONEPEZIL HCL 10 MG TABLET (FP) PO SCH (21:19)
[2018-03-27] MEDS: MECLIZINE HCL 25 MG TABLET (FP) PO SCH ×3 (05:31→21:05)
[2018-03-27] MEDS: ACETAMINOPHEN 325 MG TABLET (FP) PO PRN ×3 (05:31→21:06)
[2018-03-27] MEDS: HEPARIN NA (PORCINE) 5,000 UNITS/ML 1ML VIAL SQ SCH ×3 (05:31→21:06)
--- NOTE | 2018-03-27 08:52 | PN ---
Progress Note (short form) - Note Progress Note: Neurology History of Present Illness 87 year old male with a significant PMH of dementia, hypertension, CAD, CKA, polycystic kidney disease, colon ca, and GOUT who presentrf to the emergency department with lightheadedness for the past several days. As per the patient's , the patient has fallen about 9 times in the past few days secondary to lightheadedness. He reported associated headache. Neurologically without deficits. Noted to have CLINICAL LABORATORY SCIENTIST shunt and CT head completed and reviewed and without changes, stable as reported. Reports feeling well this AM and no new symptoms. Carotid Doppler completed and moderate atherosclerotic disease, 60-79% b/l ICA stenosis. Consider Vascular consult and evaluation for CEA as this maybe etiology for underlying symptoms. NSGY notes reviewed, defer to Dr. Ortiz regarding shunt mgmt. Allergies/Adverse Reactions: Allergies Allergy/AdvReac Type Severity Reaction Status Date / Time No Known Allergies Allergy Verified 11/07/17 23:18 Active Medications Acetaminophen (Tylenol -) 650 mg PO Q6H PRN PRN Reason: PAIN LEVEL 1-5 Last Admin: 03/27/18 05:31 Dose: 650 mg Albuterol Sulfate (Ventolin 0.083% Nebulizer Soln -) 1 amp NEB Q6H PRN PRN Reason: SHORT OF BREATH/WHEEZING Amino Acids (Prosource No Carb Liquid Pkt) 30 ml PO BID@0800,1730 [facility] Last Admin: 03/26/18 17:56 Dose: 30 ml Ascorbic Acid (Vitamin C -) 250 mg PO DAILY [facility] Last Admin: 03/26/18 09:12 Dose: 250 mg Aspirin (Asa -) 81 mg PO DAILY [facility] Last Admin: 03/26/18 09:12 Dose: 81 mg Benzocaine/Menthol (Cepacol Lozenge -) 1 each MM PRN PRN PRN Reason: SORE THROAT Last Admin: 03/26/18 20:08 Dose: 1 each Clonazepam (Klonopin -) 0.5 mg PO DAILY [facility] Last Admin: 03/26/18 09:12 Dose: 0.5 mg Donepezil HCl (Aricept -) 10 mg PO HS [facility] Last Admin: 03/26/18 21:19 Dose: 10 mg Escitalopram Oxalate (Lexapro -) 10 mg PO DAILY [facility] Last Admin: 03/26/18 09:12 Dose: 10 mg Febuxostat (Uloric -) 40 mg PO DAILY [facility] Last Admin: 03/26/18 09:12 Dose: 40 mg Heparin Sodium (Porcine) (Heparin -) 5,000 unit SQ TID [facility] Last Admin: 03/27/18 05:31 Dose: 5,000 unit Hydralazine HCl (Apresoline -) 10 mg PO BID [facility] Last Admin: 03/26/18 21:18 Dose: 10 mg Ceftriaxone Sodium 1 gm/ (Dextrose) 50 mls @ 100 mls/hr IVPB DAILY [facility]; Protocol Last Admin: 03/26/18 09:11 Dose: 100 mls/hr Meclizine HCl (Antivert -) 25 mg PO TID [facility] Last Admin: 03/27/18 05:31 Dose: 25 mg Memantine (Namenda -) 5 mg PO BID [facility] Last Admin: 03/26/18 21:17 Dose: 5 mg Methyl Salicylate (Morro-Andrea -) 1 applic TP BID [facility] Last Admin: 03/26/18 21:18 Dose: Not Given Multivitamins/Minerals/Vitamin C (Tab-A-Vit -) 1 tab PO DAILY [facility] Last Admin: 03/26/18 09:12 Dose: 1 tab Nebivolol (Bystolic -) 5 mg PO DAILY [facility] Last Admin: 03/26/18 09:12 Dose: 5 mg Non-Formulary Medication (Mirabegron [Myrbetriq]) 25 mg PO DAILY [facility] Nystatin/Triamcinolone Acetonide (Mycolog Ii Cream -) 1 applic TP BID [facility] Last Admin: 03/26/18 21:19 Dose: Not Given Olanzapine (Zyprexa -) 5 mg PO HS [facility] Last Admin: 03/26/18 21:17 Dose: 5 mg Pantoprazole Sodium (Protonix -) 40 mg PO DAILY [facility] Last Admin: 03/26/18 09:12 Dose: 40 mg Phenol/Menthol (Chloraseptic -) 1 spray MM Q6HPO PRN PRN Reason: SORE THROAT Rosuvastatin Calcium (Crestor -) 20 mg PO HS [facility] Last Admin: 03/26/18 21:18 Dose: 20 mg Tamsulosin HCl (Flomax -) 0.4 mg PO DAILY@0830 [facility] Last Admin: 03/26/18 08:29 Dose: 0.4 mg *Physical Exam Vital Signs Period Temp Pulse Resp BP Sys/Handy Pulse Ox Last 24 Hr 97.4 F-97.9 F 53-75 18-20 121-146/53-58 93-94 - Physical Exam General Appearance: Yes: Nourished, Appropriately Dressed, Apparent Distress HEENT: positive: LOLA, Normal Voice, Symmetrical, Pharynx Normal, Hearing Grossly Normal. negative: Tonsillar Exudate, Tonsillar Erythema, Nasal Congestion, Hearing Decreased, Excessive drooling Neck: positive: Supple. negative: Carotid bruit Respiratory/Chest: positive: Lungs Clear. negative: Chest Tender, Normal Breath Sounds, Respiratory Distress, Accessory Muscle Use, Labored Respiration, Crackles, Rales, Wheezing Cardiovascular: positive: Regular Rhythm, Regular Rate, S1, S2, Edema, JVD Vascular Pulses: Dorsalis-Pedis (R): 2+, Doralis-Pedis (L): 2+ Gastrointestinal/Abdominal: positive: Tender, Tenderness Male Genitalia: positive: normal genitalia. negative: normal prostate ( enlarged ), discharge Rectal Exam: positive: heme negative stool, normal exam, normal rectal tone, hemorrhoids (external hemorrhoids, no internal felt ). negative: NL Prostate ( diffusely enlarged, no nodularity appreciated ), melena, heme positive stool Extremity: positive: Normal Capillary Refill, Normal Inspection, Pedal Edema, Swelling. negative: Calf Tenderness, Erythema, Inflammation Neurologic: CN intact, no facial droop, no slurring of speech, moves all extremities equally, sensory intact CBCD WBC 8.4 K/mm3 (4.0-10.0) 03/26/18 06:00 RBC 4.69 M/mm3 (4.00-5.60) 03/26/18 06:00 Hgb 11.4 GM/dL (11.7-16.9) L 03/26/18 06:00 Hct 36.5 % (35.4-49) 03/26/18 06:00 MCV 77.8 fl (80-96) L 03/26/18 06:00 MCHC 31.2 g/dl (32.0-35.9) L 03/26/18 06:00 RDW 14.8 % (11.9-15.9) 03/26/18 06:00 Plt Count 147 K/MM3 (134-434) 03/26/18 06:00 MPV 9.9 fl (7.5-11.1) 03/26/18 06:00 CMP Sodium 141 mmol/L (136-145) 03/26/18 06:00 Potassium 4.2 mmol/L (3.5-5.1) 03/26/18 06:00 Chloride 112 mmol/L (98-107) H 03/26/18 06:00 Carbon Dioxide 21 mmol/L (21-32) 03/26/18 06:00 Anion Gap 9 MMOL/L (8-16) 03/26/18 06:00 BUN 60 mg/dL (7-18) H 03/26/18 06:00 Creatinine 2.2 mg/dL (0.55-1.3) H 03/26/18 06:00 Creat Clearance w eGFR 28.59 (>60) 03/26/18 06:00 Random Glucose 87 mg/dL (74-106) 03/26/18 06:00 Calcium 8.2 mg/dL (8.5-10.1) L 03/26/18 06:00 Total Bilirubin 0.4 mg/dL (0.2-1) 03/23/18 22:11 AST 154 U/L (15-37) H 03/23/18 22:11 ALT 40 U/L (13-61) 03/23/18 22:11 Alkaline Phosphatase 72 U/L (45-117) 03/23/18 22:11 Total Protein 6.3 g/dl (6.4-8.2) L 03/23/18 22:11 Albumin 3.6 g/dl (3.4-5.0) 03/23/18 22:11 CARDIAC ENZYMES Creatine Kinase 3466 IU/L (26-308) H 03/24/18 08:10 Troponin I 0.16 ng/ml (0.00-0.05) H 03/24/18 04:00 - RADIOLOGY CT head reviewed Plan: 87 year old male with a significant PMH of dementia, hypertension, CAD, CKA, polycystic kidney disease, colon ca, and GOUT who presentrf to the emergency department with lightheadedness for the past several days. As per the patient's , the patient has fallen about 9 times in the past few days secondary to lightheadedness. He reported associated headache. Neurologically without deficits. Noted to have CLINICAL LABORATORY SCIENTIST shunt and CT head completed and reviewed and without changes, stable as reported. Reports feeling well this AM and no new symptoms. Carotid Doppler completed and moderate atherosclerotic disease, 60-79% b/l ICA stenosis. Consider Vascular consult and evaluation for CEA. Underlying dementia , on donepizil, would not change at this time. Recommend outpatient followup for formal memory testing and can then determine patient's cognitive status when not acutely inpatient. Increased hydration recommended, cardiology follow up. NSGY notes reviewed, defer to Dr. Ortiz regarding shunt mgmt. ID notes reviewed. Fall precautions. DVT ppx.
[2018-03-27] MEDS ORDERED: DEXTROSE 5%-WATER - 50 ML IVPB ONE (09:14)
[2018-03-27] MEDS ORDERED: PT OWN MED DRAWER 7, Y5N ONE ×3 (09:14→20:59)
[2018-03-27] MEDS ORDERED: cefTRIAXone SODIUM 1 GM VIAL ONE (09:14)
--- NOTE | 2018-03-27 09:16 | PN ---
Progress Note, Physician Chief Complaint: AWAKE MORE ALERT DENIES CHEST PAIN OR NECK PAIN TODAY - Current Medication List Current Medications: Active Medications Acetaminophen (Tylenol -) 650 mg PO Q6H PRN PRN Reason: PAIN LEVEL 1-5 Last Admin: 03/27/18 05:31 Dose: 650 mg Albuterol Sulfate (Ventolin 0.083% Nebulizer Soln -) 1 amp NEB Q6H PRN PRN Reason: SHORT OF BREATH/WHEEZING Amino Acids (Prosource No Carb Liquid Pkt) 30 ml PO BID@0800,1730 [facility] Last Admin: 03/26/18 17:56 Dose: 30 ml Ascorbic Acid (Vitamin C -) 250 mg PO DAILY [facility] Last Admin: 03/26/18 09:12 Dose: 250 mg Aspirin (Asa -) 81 mg PO DAILY [facility] Last Admin: 03/26/18 09:12 Dose: 81 mg Benzocaine/Menthol (Cepacol Lozenge -) 1 each MM PRN PRN PRN Reason: SORE THROAT Last Admin: 03/26/18 20:08 Dose: 1 each Clonazepam (Klonopin -) 0.5 mg PO DAILY [facility] Last Admin: 03/26/18 09:12 Dose: 0.5 mg Donepezil HCl (Aricept -) 10 mg PO HS [facility] Last Admin: 03/26/18 21:19 Dose: 10 mg Escitalopram Oxalate (Lexapro -) 10 mg PO DAILY [facility] Last Admin: 03/26/18 09:12 Dose: 10 mg Febuxostat (Uloric -) 40 mg PO DAILY [facility] Last Admin: 03/26/18 09:12 Dose: 40 mg Heparin Sodium (Porcine) (Heparin -) 5,000 unit SQ TID [facility] Last Admin: 03/27/18 05:31 Dose: 5,000 unit Hydralazine HCl (Apresoline -) 10 mg PO BID [facility] Last Admin: 03/26/18 21:18 Dose: 10 mg Ceftriaxone Sodium 1 gm/ (Dextrose) 50 mls @ 100 mls/hr IVPB DAILY [facility]; Protocol Last Admin: 03/26/18 09:11 Dose: 100 mls/hr Meclizine HCl (Antivert -) 25 mg PO TID [facility] Last Admin: 03/27/18 05:31 Dose: 25 mg Memantine (Namenda -) 5 mg PO BID [facility] Last Admin: 03/26/18 21:17 Dose: 5 mg Methyl Salicylate (Morro-Andrea -) 1 applic TP BID [facility] Last Admin: 03/26/18 21:18 Dose: Not Given Multivitamins/Minerals/Vitamin C (Tab-A-Vit -) 1 tab PO DAILY [facility] Last Admin: 03/26/18 09:12 Dose: 1 tab Nebivolol (Bystolic -) 5 mg PO DAILY [facility] Last Admin: 03/26/18 09:12 Dose: 5 mg Non-Formulary Medication (Mirabegron [Myrbetriq]) 25 mg PO DAILY [facility] Nystatin/Triamcinolone Acetonide (Mycolog Ii Cream -) 1 applic TP BID [facility] Last Admin: 03/26/18 21:19 Dose: Not Given Olanzapine (Zyprexa -) 5 mg PO [facility] Last Admin: 03/26/18 21:17 Dose: 5 mg Pantoprazole Sodium (Protonix -) 40 mg PO DAILY [facility] Last Admin: 03/26/18 09:12 Dose: 40 mg Phenol/Menthol (Chloraseptic -) 1 spray MM Q6HPO PRN PRN Reason: SORE THROAT Rosuvastatin Calcium (Crestor -) 20 mg PO [facility] Last Admin: 03/26/18 21:18 Dose: 20 mg Tamsulosin HCl (Flomax -) 0.4 mg PO DAILY@0830 [facility] Last Admin: 03/26/18 08:29 Dose: 0.4 mg - Objective Vital Signs: Vital Signs Temperature 97.8 F 03/27/18 06:00 Pulse Rate 53 L 03/27/18 06:00 Respiratory Rate 18 03/27/18 06:00 Blood Pressure 121/56 L 03/27/18 06:00 O2 Sat by Pulse Oximetry (%) 94 L 03/26/18 21:00 Constitutional: Yes: No Distress Eyes: Yes: WNL HENT: Yes: WNL Neck: Yes: WNL Cardiovascular: Yes: Pulse Irregular Respiratory: Yes: WNL Gastrointestinal: Yes: WNL Genitourinary: Yes: Incontinence Musculoskeletal: Yes: Muscle Weakness Extremities: Yes: Other Edema: No Peripheral Pulses WNL: Yes Integumentary: Yes: WNL Wound/Incision: Yes: Clean/Dry Neurological: Yes: Pre-Existing Deficit ...Motor Strength: LLE, RLE Psychiatric: Yes: Other Labs: CBC, BMP 03/26/18 06:00 03/26/18 06:00 INR, PTT INR 1.03 (0.83-1.09) 03/23/18 23:15 Problem List - Problems (1) Leukocytosis (leucocytosis) Code(s): D72.829 - ELEVATED WHITE BLOOD CELL COUNT, UNSPECIFIED (2) Syncope Code(s): R55 - SYNCOPE AND COLLAPSE (3) GARRISON (acute kidney injury) Code(s): N17.9 - ACUTE KIDNEY FAILURE, UNSPECIFIED (4) Acute metabolic encephalopathy Code(s): G93.41 - METABOLIC ENCEPHALOPATHY (5) Altered mental status Code(s): R41.82 - ALTERED MENTAL STATUS, UNSPECIFIED (6) CKD (chronic kidney disease) Code(s): N18.9 - CHRONIC KIDNEY DISEASE, UNSPECIFIED (7) Diabetes Code(s): E11.9 - TYPE 2 DIABETES MELLITUS WITHOUT COMPLICATIONS (8) NPH (normal pressure hydrocephalus) Code(s): G91.2 - (IDIOPATHIC) NORMAL PRESSURE HYDROCEPHALUS (9) Unsteady gait Code(s): R26.81 - UNSTEADINESS ON FEET (10) Urinary frequency Code(s): R35.0 - FREQUENCY OF MICTURITION (11) Weakness Code(s): R53.1 - WEAKNESS Assessment/Plan NPH SHUNT PER NEUROSURGERY FOLLOW CLINICALLY NO FEVER PT EVAL OOB TO CHAIR CAROTID STENOSIS NO INTERVENTION NEEDED AT THIS TIME IV ABX PER ID
[2018-03-27] MEDS: CEFTRIAXONE 1 GM in DEXTROSE 5%-WATER - 50 ML IVPB SCH (09:19)
[2018-03-27] MEDS: ASPIRIN 81 MG CHEWABLE TABLETS PO SCH (09:20)
[2018-03-27] MEDS: PANTOPRAZOLE 40 MG TABLET (FP) PO SCH (09:20)
[2018-03-27] MEDS: TAMSULOSIN HCL 0.4 MG CAP PO SCH (09:20)
[2018-03-27] MEDS: MEMANTINE HCL 5 MG TABLET (UD) PO SCH ×2 (09:20→21:05)
[2018-03-27] MEDS: AMINO ACIDS/PROTEIN HYDROLYS 30 ML LIQUID.PKT PO SCH ×2 (09:20→18:06)
[2018-03-27] MEDS: MULTIVITAMINS (DAILY MVI) TABLET (FP) PO SCH (09:20)
[2018-03-27] MEDS: clonazePAM 0.5 MG TABLET PO SCH (09:20)
[2018-03-27] MEDS: ESCITALOPRAM OXALATE 10 MG TABLET (FP) PO SCH (09:22)
[2018-03-27] MEDS: FEBUXOSTAT 40 MG TAB PO SCH (09:23)
[2018-03-27] MEDS: ASCORBIC ACID 250 MG TABLET (FP) PO SCH (09:24)
[2018-03-27] MEDS: METHYL SALICYLATE/MENTHOL OINT 30 GM TUBE TP SCH ×2 (10:07→21:01)
[2018-03-27] MEDS: BENZOCAINE/MENTH/CETYLPYRD CL 1 EACH LOZENGE MM PRN ×2 (10:07→21:07)
[2018-03-27] MEDS: NYSTATIN/TRIAMCINOLONE TOPICAL CREAM 15 GM TUBE TP SCH ×2 (10:08→21:02)
[2018-03-27] MEDS: NEBIVOLOL 5 MG TABLET (FP) PO SCH (10:16)
[2018-03-27] MEDS: hydrALAZINE HCL 10 MG TABLET PO SCH ×2 (10:16→21:06)
--- NOTE | 2018-03-27 11:33 | PN ---
Progress Note, Physician History of Present Illness: C/O headache No c/o sore throat No c/o fever/ chills No c/o dysuria Afebrile WBC WNL - Current Medication List Current Medications: Active Medications Acetaminophen (Tylenol -) 650 mg PO Q6H PRN PRN Reason: PAIN LEVEL 1-5 Last Admin: 03/27/18 05:31 Dose: 650 mg Albuterol Sulfate (Ventolin 0.083% Nebulizer Soln -) 1 amp NEB Q6H PRN PRN Reason: SHORT OF BREATH/WHEEZING Amino Acids (Prosource No Carb Liquid Pkt) 30 ml PO BID@0800,1730 [facility] Last Admin: 03/27/18 09:20 Dose: 30 ml Ascorbic Acid (Vitamin C -) 250 mg PO DAILY [facility] Last Admin: 03/27/18 09:24 Dose: 250 mg Aspirin (Asa -) 81 mg PO DAILY [facility] Last Admin: 03/27/18 09:20 Dose: 81 mg Benzocaine/Menthol (Cepacol Lozenge -) 1 each MM PRN PRN PRN Reason: SORE THROAT Last Admin: 03/27/18 10:07 Dose: 1 each Clonazepam (Klonopin -) 0.5 mg PO DAILY [facility] Last Admin: 03/27/18 09:20 Dose: 0.5 mg Donepezil HCl (Aricept -) 10 mg PO HS [facility] Last Admin: 03/26/18 21:19 Dose: 10 mg Escitalopram Oxalate (Lexapro -) 10 mg PO DAILY [facility] Last Admin: 03/27/18 09:22 Dose: 10 mg Febuxostat (Uloric -) 40 mg PO DAILY [facility] Last Admin: 03/27/18 09:23 Dose: 40 mg Heparin Sodium (Porcine) (Heparin -) 5,000 unit SQ TID [facility] Last Admin: 03/27/18 05:31 Dose: 5,000 unit Hydralazine HCl (Apresoline -) 10 mg PO BID [facility] Last Admin: 03/27/18 10:16 Dose: 10 mg Ceftriaxone Sodium 1 gm/ (Dextrose) 50 mls @ 100 mls/hr IVPB DAILY [facility]; Protocol Last Admin: 03/27/18 09:19 Dose: 100 mls/hr Meclizine HCl (Antivert -) 25 mg PO TID [facility] Last Admin: 03/27/18 05:31 Dose: 25 mg Memantine (Namenda -) 5 mg PO BID [facility] Last Admin: 03/27/18 09:20 Dose: 5 mg Methyl Salicylate (Morro-Andrea -) 1 applic TP BID [facility] Last Admin: 03/27/18 10:07 Dose: Not Given Multivitamins/Minerals/Vitamin C (Tab-A-Vit -) 1 tab PO DAILY [facility] Last Admin: 03/27/18 09:20 Dose: 1 tab Nebivolol (Bystolic -) 5 mg PO DAILY [facility] Last Admin: 03/27/18 10:16 Dose: 5 mg Non-Formulary Medication (Mirabegron [Myrbetriq]) 25 mg PO DAILY [facility] Nystatin/Triamcinolone Acetonide (Mycolog Ii Cream -) 1 applic TP BID [facility] Last Admin: 03/27/18 10:08 Dose: 1 applic Olanzapine (Zyprexa -) 5 mg PO HS [facility] Last Admin: 03/26/18 21:17 Dose: 5 mg Pantoprazole Sodium (Protonix -) 40 mg PO DAILY [facility] Last Admin: 03/27/18 09:20 Dose: 40 mg Phenol/Menthol (Chloraseptic -) 1 spray MM Q6HPO PRN PRN Reason: SORE THROAT Last Admin: 03/27/18 10:06 Dose: 1 spray Rosuvastatin Calcium (Crestor -) 20 mg PO HS [facility] Last Admin: 03/26/18 21:18 Dose: 20 mg Tamsulosin HCl (Flomax -) 0.4 mg PO DAILY@0830 [facility] Last Admin: 03/27/18 09:20 Dose: 0.4 mg - Objective Vital Signs: Vital Signs Temperature 97.4 F L 03/27/18 09:00 Pulse Rate 51 L 03/27/18 09:00 Respiratory Rate 18 03/27/18 09:00 Blood Pressure 134/54 L 03/27/18 09:00 O2 Sat by Pulse Oximetry (%) 95 03/27/18 09:00 Constitutional: Yes: No Distress Eyes: Yes: Conjunctiva Clear Cardiovascular: Yes: Regular Rate and Rhythm, S1, S2 Respiratory: Yes: CTA Bilaterally Gastrointestinal: Yes: Normal Bowel Sounds, Soft. No: Tenderness Labs: CBC, BMP 03/26/18 06:00 03/26/18 06:00 INR, PTT INR 1.03 (0.83-1.09) 03/23/18 23:15 Assessment/Plan R/O toxic metabolic encephalopathy improved Recurrent falls NPH/HEALTH EDUCATION ASSISTANT shunt Azotemia-improved Substitute amoxicillin 250mg po bid x 7d
--- NOTE | 2018-03-27 11:58 | PN ---
Progress Note, Physician History of Present Illness: Pt seen and examined at bedside. He is awake and alert. He is tolerating diet. - Current Medication List Current Medications: Active Medications Acetaminophen (Tylenol -) 650 mg PO Q6H PRN PRN Reason: PAIN LEVEL 1-5 Last Admin: 03/27/18 05:31 Dose: 650 mg Albuterol Sulfate (Ventolin 0.083% Nebulizer Soln -) 1 amp NEB Q6H PRN PRN Reason: SHORT OF BREATH/WHEEZING Amino Acids (Prosource No Carb Liquid Pkt) 30 ml PO BID@0800,1730 [facility] Last Admin: 03/27/18 09:20 Dose: 30 ml Amoxicillin (Amoxicillin -) 250 mg PO BID [facility] Ascorbic Acid (Vitamin C -) 250 mg PO DAILY [facility] Last Admin: 03/27/18 09:24 Dose: 250 mg Aspirin (Asa -) 81 mg PO DAILY [facility] Last Admin: 03/27/18 09:20 Dose: 81 mg Benzocaine/Menthol (Cepacol Lozenge -) 1 each MM PRN PRN PRN Reason: SORE THROAT Last Admin: 03/27/18 10:07 Dose: 1 each Clonazepam (Klonopin -) 0.5 mg PO DAILY [facility] Last Admin: 03/27/18 09:20 Dose: 0.5 mg Donepezil HCl (Aricept -) 10 mg PO HS [facility] Last Admin: 03/26/18 21:19 Dose: 10 mg Escitalopram Oxalate (Lexapro -) 10 mg PO DAILY [facility] Last Admin: 03/27/18 09:22 Dose: 10 mg Febuxostat (Uloric -) 40 mg PO DAILY [facility] Last Admin: 03/27/18 09:23 Dose: 40 mg Heparin Sodium (Porcine) (Heparin -) 5,000 unit SQ TID [facility] Last Admin: 03/27/18 05:31 Dose: 5,000 unit Hydralazine HCl (Apresoline -) 10 mg PO BID [facility] Last Admin: 03/27/18 10:16 Dose: 10 mg Meclizine HCl (Antivert -) 25 mg PO TID [facility] Last Admin: 03/27/18 05:31 Dose: 25 mg Memantine (Namenda -) 5 mg PO BID [facility] Last Admin: 03/27/18 09:20 Dose: 5 mg Methyl Salicylate (Morro-Andrea -) 1 applic TP BID [facility] Last Admin: 03/27/18 10:07 Dose: Not Given Multivitamins/Minerals/Vitamin C (Tab-A-Vit -) 1 tab PO DAILY [facility] Last Admin: 03/27/18 09:20 Dose: 1 tab Nebivolol (Bystolic -) 5 mg PO DAILY [facility] Last Admin: 03/27/18 10:16 Dose: 5 mg Non-Formulary Medication (Mirabegron [Myrbetriq]) 25 mg PO DAILY [facility] Nystatin/Triamcinolone Acetonide (Mycolog Ii Cream -) 1 applic TP BID [facility] Last Admin: 03/27/18 10:08 Dose: 1 applic Olanzapine (Zyprexa -) 5 mg PO HS [facility] Last Admin: 03/26/18 21:17 Dose: 5 mg Pantoprazole Sodium (Protonix -) 40 mg PO DAILY [facility] Last Admin: 03/27/18 09:20 Dose: 40 mg Phenol/Menthol (Chloraseptic -) 1 spray MM Q6HPO PRN PRN Reason: SORE THROAT Last Admin: 03/27/18 10:06 Dose: 1 spray Rosuvastatin Calcium (Crestor -) 20 mg PO HS [facility] Last Admin: 03/26/18 21:18 Dose: 20 mg Tamsulosin HCl (Flomax -) 0.4 mg PO DAILY@0830 [facility] Last Admin: 03/27/18 09:20 Dose: 0.4 mg - Objective Vital Signs: Vital Signs Temperature 97.4 F L 03/27/18 09:00 Pulse Rate 51 L 03/27/18 09:00 Respiratory Rate 18 03/27/18 09:00 Blood Pressure 134/54 L 03/27/18 09:00 O2 Sat by Pulse Oximetry (%) 95 03/27/18 09:00 Constitutional: Yes: Calm Eyes: Yes: Conjunctiva Clear HENT: Yes: Atraumatic Cardiovascular: Yes: S1, S2 Respiratory: Yes: CTA Bilaterally Gastrointestinal: Yes: Soft Genitourinary: Yes: WNL Edema: No Neurological: Yes: Oriented Psychiatric: Yes: Oriented Labs: CBC, BMP 03/26/18 06:00 03/26/18 06:00 INR, PTT INR 1.03 (0.83-1.09) 03/23/18 23:15 Problem List - Problems (1) Syncope Code(s): R55 - SYNCOPE AND COLLAPSE (2) GARRISON (acute kidney injury) Code(s): N17.9 - ACUTE KIDNEY FAILURE, UNSPECIFIED (3) CKD (chronic kidney disease) Code(s): N18.9 - CHRONIC KIDNEY DISEASE, UNSPECIFIED Assessment/Plan Current Medications Generic Name Dose Route Start Last Admin Trade Name Freq PRN Reason Stop Dose Admin Acetaminophen 650 mg 03/24/18 09:44 03/27/18 05:31 Tylenol - PO 650 mg Q6H PRN Administration PAIN LEVEL 1-5 Albuterol Sulfate 1 amp 03/24/18 09:44 Ventolin 0.083% Nebulizer Soln - NEB Q6H PRN SHORT OF BREATH/WHEEZING Amino Acids 30 ml 03/24/18 17:30 03/27/18 09:20 Prosource No Carb Liquid Pkt PO 30 ml BID@0800,1730 [facility] Administration Amoxicillin 250 mg 03/27/18 12:30 Amoxicillin - PO BID [facility] Ascorbic Acid 250 mg 03/24/18 10:00 03/27/18 09:24 Vitamin C - PO 250 mg DAILY [facility] Administration Aspirin 81 mg 03/24/18 10:00 03/27/18 09:20 Asa - PO 81 mg DAILY [facility] Administration Benzocaine/Menthol 1 each 03/24/18 03:56 03/27/18 10:07 Cepacol Lozenge - MM 1 each PRN PRN Administration SORE THROAT Clonazepam 0.5 mg 03/24/18 10:00 03/27/18 09:20 Klonopin - PO 0.5 mg DAILY [facility] Administration Donepezil HCl 10 mg 03/24/18 22:00 03/26/18 21:19 Aricept - PO 10 mg HS [facility] Administration Escitalopram Oxalate 10 mg 03/24/18 10:00 03/27/18 09:22 Lexapro - PO 10 mg DAILY [facility] Administration Febuxostat 40 mg 03/24/18 10:00 03/27/18 09:23 Uloric - PO 40 mg DAILY [facility] Administration Heparin Sodium (Porcine) 5,000 unit 03/24/18 00:02 03/27/18 05:31 Heparin - SQ 5,000 unit TID [facility] Administration Hydralazine HCl 10 mg 03/24/18 10:00 03/27/18 10:16 Apresoline - PO 10 mg BID [facility] Administration Meclizine HCl 25 mg 03/24/18 14:00 03/27/18 05:31 Antivert - PO 25 mg TID [facility] Administration Memantine 5 mg 03/24/18 10:00 03/27/18 09:20 Namenda - PO 5 mg BID [facility] Administration Methyl Salicylate 1 applic 03/24/18 10:00 03/27/18 10:07 Morro-Andrea - TP Not Given BID [facility] Multivitamins/Minerals/Vitamin C 1 tab 03/24/18 10:00 03/27/18 09:20 Tab-A-Vit - PO 1 tab DAILY [facility] Administration Nebivolol 5 mg 03/24/18 10:00 03/27/18 10:16 Bystolic - PO 5 mg DAILY [facility] Administration Non-Formulary Medication 25 mg 03/24/18 10:00 Mirabegron [Myrbetriq] PO DAILY [facility] Nystatin/Triamcinolone Acetonide 1 applic 03/24/18 10:00 03/27/18 10:08 Mycolog Ii Cream - TP 1 applic BID [facility] Administration Olanzapine 5 mg 03/24/18 22:00 03/26/18 21:17 Zyprexa - PO 5 mg HS [facility] Administration Pantoprazole Sodium 40 mg 03/24/18 10:00 03/27/18 09:20 Protonix - PO 40 mg DAILY [facility] Administration Phenol/Menthol 1 spray 03/26/18 13:26 03/27/18 10:06 Chloraseptic - MM 1 spray Q6HPO PRN Administration SORE THROAT Rosuvastatin Calcium 20 mg 03/24/18 22:00 03/26/18 21:18 Crestor - PO 20 mg HS [facility] Administration Tamsulosin HCl 0.4 mg 03/25/18 08:30 03/27/18 09:20 Flomax - PO 0.4 mg DAILY@0830 [facility] Administration Impression 1. CKD 2. PKD 3. dizziness 4. HTN 5. weakness 6. loss of appetite 7. prostate cancer 8. dementia 9. hyperlipidemia 10. GARRISON 11. 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
[2018-03-27] MEDS: AMOXICILLIN 250 MG CAPSULE PO SCH ×2 (12:23→21:05)
--- NOTE | 2018-03-27 13:35 | CONSULT ---
Admitting History and Physical - Admission Chief Complaint: Pt. referred for Speech/Swallow evaluation due to reported coughing. Pt. seen with his present. They both report that he is having pain/discomfort on the ride side of his throat/neck when swallowing solids and liquids. His reports that he sometimes "chokes" while attempting to swallow and turns "red". History of Present Illness: Pt.'s reported that this has been an ongoing problem for "a few weeks". Pt 's reported a history of falls, but stated that the pain/discomfort in his throat/neck preceeded Pt's falling episodes. History Source: Patient, Significant Other Limitations to Obtaining History: No Limitations, Poor Historian (Pt. 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 Easily re-directed.) Ability to Follow Directions: Good Head/Neck Control: WFL - Hearing Hearing: Functional Hearing: Normal Hearing Aide: No With Patient: No Speech Evaluation - Communication Primary Language: PERSIAN (Pt. understands and speaks Divehi at conversational level.) Communication: Yes: Within Normal Limits Oral Expression Ability: Yes: No Impairment - Speech Production Apraxia: No Able to Make Needs Known: Yes: WNL Intelligibility: Yes: Mildly Impaired (Pt. tends to use a fast rate of speaking. Not able to comply when cued to slow his speech down by using exaggerated articulation.) - Speech Characteristics Voice Loudness: Normal Voice Pitch: Yes: Normal Voice Phonatory-based Quality: Yes: Normal Speech Pattern: Normal Articulation: Yes: Precise - Language/Auditory Comprehension Follows: Yes: 1 Stage Simple Commands Observation: Able to respond to yes/no queries: Yes, Yes/No Confusion: No, Comprehends Conversational Speech: Yes - Language/Verbal Expression Able to Respond to Simple Queries: Yes: WNL Able to Communicate Wants and Needs: Yes: WNL Functional Communication Status: Yes: WNL Aware of Errors: No Attempts to Correct Errors: No Attention: Yes: Distractible - Memory/Perception group home Memory: Yes: WNL Short Term Memory: Yes: Mildly Impaired (Difficulty recalling names of close family members, e.g. his favorite grandson.) - Swallow Evaluation/Bedside Assessment Current Nutritional Intake: Regular (Pt. tolerating well, according to his and Nurse. Pt's reported that she needs to feed him otherwise he makes a mess and the food ends up on the floor or he soils his clothes.) Oral Secretions: Yes: WFL Tracheostomy Present: No Patient on Ventilator: No Dentition: Yes: Adequate Facial Symmetry at Rest: Symmetrical Facial Symmetry on Retraction: Symmetrical Facial Movement: Controlled Sensation: Normal Jaw Position: Closed at Rest Pucker Lips: Normal Smile: Normal Lingual Movement: Other (Pt. winced in pain when protruding his tongue.) Lingual Speed of Movement: Reduced Lingual Comment: Pt. with c/o pain/discomfort and points to the left side of his neck. Velopharyngeal Movement: Normal Laryngeal Elevation: Impaired (Difficult to palpate due to shortened neck.) Needs Assistance: Yes Rate of Intake: WFL (With assistance from his .) Labial Seal: WFL Chewing: WFL A-P Transit: WFL Timing of Swallow: WFL Odynophagia: Pharyngeal (Pt. with c/o pain, (5/10) and discomfort when swallowing.) Other Findings/Remarks: Pt. with c/o throat pain when he swallows. During PO trials he winced in pain, 5/10. Laryngeal elevation difficult to palpate during PO trials due to Pt's short neck. Swallow function appears otherwise intact. Recommendations - Speech Evaluation, Impression/Plan Recommended Therapies: Swallowing (Pt. will be followed to insure adeherence to compensatory strategies e.g. small bites and single sips. Recommended no straw drinking, however, pt's reported that he has difficulty holding the cup on his own. Pt. taught, if his is not with him and he needs to use the straw he should take single sips. During return demonstration, Pt. demonstrated inreased awareness to be careful but judged to be somewhat impulsive and requires cues. Discussed with nurse.) Longterm Goals: Increase Pt. awareness of safe drinking strategies. Increase knowledge of s/s of apsiration and aspiraiton precautions. Short Term Goals: Pt. will use single sips when drinking. Pt. yoon take small bites. Recommended Frequency for Therapy: Once a Week - Disposition Discharge to: To be Determined - Dysphagia Impressions/Plan Swallowing Skills: Impaired Dysphagia Impressions: Moderate Impairment (c/o pain/discomfort when swallowing. ) Dysphagia Treatment Plan: OOB for meals Recommendations: ENT Consult - Recommendations Diet Consistency: Regular Medication Administration: Whole with water Liquids: Thin Liquids
--- NOTE | 2018-03-27 15:09 | PN ---
Progress Note, Physician Chief Complaint: Still lightheaded and unsteady History of Present Illness: 87 year old male with a PMH of ementia, hypertension, CAD, CKA, polycystic kidney disease, colon ca, and gout. As per the patient's at bedside, the patient has fallen about 9 times in the past few days secondary to lightheadedness. No chest pain or SOB. No complaints of palpitations. - Current Medication List Current Medications: Active Medications Acetaminophen (Tylenol -) 650 mg PO Q6H PRN PRN Reason: PAIN LEVEL 1-5 Last Admin: 03/27/18 05:31 Dose: 650 mg Albuterol Sulfate (Ventolin 0.083% Nebulizer Soln -) 1 amp NEB Q6H PRN PRN Reason: SHORT OF BREATH/WHEEZING Amino Acids (Prosource No Carb Liquid Pkt) 30 ml PO BID@0800,1730 [facility] Last Admin: 03/27/18 09:20 Dose: 30 ml Amoxicillin (Amoxicillin -) 250 mg PO BID [facility] Last Admin: 03/27/18 12:23 Dose: 250 mg Ascorbic Acid (Vitamin C -) 250 mg PO DAILY [facility] Last Admin: 03/27/18 09:24 Dose: 250 mg Aspirin (Asa -) 81 mg PO DAILY [facility] Last Admin: 03/27/18 09:20 Dose: 81 mg Benzocaine/Menthol (Cepacol Lozenge -) 1 each MM PRN PRN PRN Reason: SORE THROAT Last Admin: 03/27/18 10:07 Dose: 1 each Clonazepam (Klonopin -) 0.5 mg PO DAILY [facility] Last Admin: 03/27/18 09:20 Dose: 0.5 mg Donepezil HCl (Aricept -) 10 mg PO HS [facility] Last Admin: 03/26/18 21:19 Dose: 10 mg Escitalopram Oxalate (Lexapro -) 10 mg PO DAILY [facility] Last Admin: 03/27/18 09:22 Dose: 10 mg Febuxostat (Uloric -) 40 mg PO DAILY [facility] Last Admin: 03/27/18 09:23 Dose: 40 mg Heparin Sodium (Porcine) (Heparin -) 5,000 unit SQ TID [facility] Last Admin: 03/27/18 14:09 Dose: 5,000 unit Hydralazine HCl (Apresoline -) 10 mg PO BID [facility] Last Admin: 03/27/18 10:16 Dose: 10 mg Meclizine HCl (Antivert -) 25 mg PO TID [facility] Last Admin: 03/27/18 14:08 Dose: 25 mg Memantine (Namenda -) 5 mg PO BID [facility] Last Admin: 03/27/18 09:20 Dose: 5 mg Methyl Salicylate (Morro-Andrea -) 1 applic TP BID [facility] Last Admin: 03/27/18 10:07 Dose: Not Given Multivitamins/Minerals/Vitamin C (Tab-A-Vit -) 1 tab PO DAILY [facility] Last Admin: 03/27/18 09:20 Dose: 1 tab Nebivolol (Bystolic -) 5 mg PO DAILY [facility] Last Admin: 03/27/18 10:16 Dose: 5 mg Non-Formulary Medication (Mirabegron [Myrbetriq]) 25 mg PO DAILY [facility] Nystatin/Triamcinolone Acetonide (Mycolog Ii Cream -) 1 applic TP BID [facility] Last Admin: 03/27/18 10:08 Dose: 1 applic Olanzapine (Zyprexa -) 5 mg PO HS [facility] Last Admin: 03/26/18 21:17 Dose: 5 mg Pantoprazole Sodium (Protonix -) 40 mg PO DAILY [facility] Last Admin: 03/27/18 09:20 Dose: 40 mg Phenol/Menthol (Chloraseptic -) 1 spray MM Q6HPO PRN PRN Reason: SORE THROAT Last Admin: 03/27/18 10:06 Dose: 1 spray Rosuvastatin Calcium (Crestor -) 20 mg PO HS [facility] Last Admin: 03/26/18 21:18 Dose: 20 mg Tamsulosin HCl (Flomax -) 0.4 mg PO DAILY@0830 [facility] Last Admin: 03/27/18 09:20 Dose: 0.4 mg - Objective Vital Signs: Vital Signs Temperature 97.3 F L 03/27/18 14:06 Pulse Rate 64 03/27/18 14:06 Respiratory Rate 18 03/27/18 14:06 Blood Pressure 125/51 L 03/27/18 14:06 O2 Sat by Pulse Oximetry (%) 95 03/27/18 09:00 Constitutional: Yes: No Distress Neck: Yes: Supple Cardiovascular: Yes: Regular Rate and Rhythm, S1, S2. No: JVD Respiratory: Yes: CTA Bilaterally Gastrointestinal: Yes: Soft Edema: No Labs: CBC, BMP 03/26/18 06:00 03/26/18 06:00 INR, PTT INR 1.03 (0.83-1.09) 03/23/18 23:15 Assessment/Plan 87 year old male with a PMH of dementia, hypertension, CAD, CKA, polycystic kidney disease, colon ca, h/o [employer] shunt, and gout. As per the patient's at bedside, the patient has fallen about 9 times in the past few days secondary to unsteadiness. No chest pain or SOB. No complaints of palpitations. Echocardiogram 03/2017 with normal LVEF and mild /mild MR/mild TR Lightheadedness/unsteadiness. -Unlikely to be cardiac in nature given that seems like symptom is that patient cannot get up out of bed without feeling extremely unsteady and falling. Sinus on tele. Can decrease nebivolol to 2.5mg daily. Consider an alternative to Tamsulosin because the alpha blockers can contribute to lightheadedness. -Found to have carotid stenosis but unclear if related to symptoms. F/u vascular and neuro. F/u neuro regarding history of [employer] shunt This is the likely cause of his lightheadedness. Can DC telemetry Will sign off at this time
--- NOTE | 2018-03-27 16:41 | PN ---
Progress Note (short form) - Note Progress Note: Vascular Surgery Carotid doppler images reviewed. AT best, the pt has 50% stenosis in bilateral ICA's. No need for surgery at this time. If greater than 80%, can then have option for surgery. Medical management. Greg Saravia DO
--- NOTE | 2018-03-27 17:13 | PN ---
Progress Note (short form) - Note Progress Note: Patient sitting comfortably in chair. Awake and alert. Lightheadedness persists when he tries to ambulate. Notes from ID, Cardiology and Vascular surgery reviewed. Agree with consideration of changing antihypertensive regimen. I evaluated the shunt and found that there may have been some drift in the setting. Valve reset to setting of 1.0. Will continue to follow.
[2018-03-27] MEDS: OLANZapine 5 MG TABLET PO SCH (21:05)
[2018-03-27] MEDS: DONEPEZIL HCL 10 MG TABLET (FP) PO SCH (21:06)
[2018-03-27] MEDS: ROSUVASTATIN CA 20 MG TABLET (FP) PO SCH (21:06)
[2018-03-28] MEDS: HEPARIN NA (PORCINE) 5,000 UNITS/ML 1ML VIAL SQ SCH ×2 (05:18→13:21)
[2018-03-28] MEDS: MECLIZINE HCL 25 MG TABLET (FP) PO SCH ×2 (05:18→13:21)
[2018-03-28] MEDS: AMINO ACIDS/PROTEIN HYDROLYS 30 ML LIQUID.PKT PO SCH (08:44)
[2018-03-28] MEDS: TAMSULOSIN HCL 0.4 MG CAP PO SCH (08:44)
--- NOTE | 2018-03-28 09:13 | PN ---
Progress Note (short form) - Note Progress Note: Neurology History of Present Illness 87 year old male with a significant PMH of dementia, hypertension, CAD, CKA, polycystic kidney disease, colon ca, and GOUT who presentrf to the emergency department with lightheadedness for the past several days. As per the patient's , the patient has fallen about 9 times in the past few days secondary to lightheadedness. He reported associated headache. Neurologically without deficits. 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 Reports feeling well this AM and no new symptoms. Carotid Doppler completed and moderate atherosclerotic disease, 60-79% b/l ICA stenosis. Consider Vascular consult and evaluation for CEA as this maybe etiology for underlying symptoms. NSGY notes reviewed, per Dr. Ortiz adjsutment to shunt setting made, patient reports feeling better today. Vascular note reviewed, no surgical intervention, medical mgmt. Spoke with primary yesterday. Neurologically stable. Allergies/Adverse Reactions: Allergies Allergy/AdvReac Type Severity Reaction Status Date / Time No Known Allergies Allergy Verified 11/07/17 23:18 Active Medications Acetaminophen (Tylenol -) 650 mg PO Q6H PRN PRN Reason: PAIN LEVEL 1-5 Last Admin: 03/27/18 21:06 Dose: 650 mg Albuterol Sulfate (Ventolin 0.083% Nebulizer Soln -) 1 amp NEB Q6H PRN PRN Reason: SHORT OF BREATH/WHEEZING Amino Acids (Prosource No Carb Liquid Pkt) 30 ml PO BID@0800,1730 [facility] Last Admin: 03/28/18 08:44 Dose: 30 ml Amoxicillin (Amoxicillin -) 250 mg PO BID [facility] Last Admin: 03/27/18 21:05 Dose: 250 mg Ascorbic Acid (Vitamin C -) 250 mg PO DAILY [facility] Last Admin: 03/27/18 09:24 Dose: 250 mg Aspirin (Asa -) 81 mg PO DAILY [facility] Last Admin: 03/27/18 09:20 Dose: 81 mg Benzocaine/Menthol (Cepacol Lozenge -) 1 each MM PRN PRN PRN Reason: SORE THROAT Last Admin: 03/27/18 21:07 Dose: 1 each Clonazepam (Klonopin -) 0.5 mg PO DAILY [facility] Last Admin: 03/27/18 09:20 Dose: 0.5 mg Donepezil HCl (Aricept -) 10 mg PO HS [facility] Last Admin: 03/27/18 21:06 Dose: 10 mg Escitalopram Oxalate (Lexapro -) 10 mg PO DAILY [facility] Last Admin: 03/27/18 09:22 Dose: 10 mg Febuxostat (Uloric -) 40 mg PO DAILY [facility] Last Admin: 03/27/18 09:23 Dose: 40 mg Heparin Sodium (Porcine) (Heparin -) 5,000 unit SQ TID [facility] Last Admin: 03/28/18 05:18 Dose: 5,000 unit Hydralazine HCl (Apresoline -) 10 mg PO BID [facility] Last Admin: 03/27/18 21:06 Dose: 10 mg Meclizine HCl (Antivert -) 25 mg PO TID [facility] Last Admin: 03/28/18 05:18 Dose: 25 mg Memantine (Namenda -) 5 mg PO BID [facility] Last Admin: 03/27/18 21:05 Dose: 5 mg Methyl Salicylate (Morro-Andrea -) 1 applic TP BID [facility] Last Admin: 03/27/18 21:01 Dose: Not Given Multivitamins/Minerals/Vitamin C (Tab-A-Vit -) 1 tab PO DAILY [facility] Last Admin: 03/27/18 09:20 Dose: 1 tab Nebivolol (Bystolic -) 5 mg PO DAILY [facility] Last Admin: 03/27/18 10:16 Dose: 5 mg Non-Formulary Medication (Mirabegron [Myrbetriq]) 25 mg PO DAILY [facility] Nystatin/Triamcinolone Acetonide (Mycolog Ii Cream -) 1 applic TP BID [facility] Last Admin: 03/27/18 21:02 Dose: Not Given Olanzapine (Zyprexa -) 5 mg PO [facility] Last Admin: 03/27/18 21:05 Dose: 5 mg Pantoprazole Sodium (Protonix -) 40 mg PO DAILY [facility] Last Admin: 03/27/18 09:20 Dose: 40 mg Phenol/Menthol (Chloraseptic -) 1 spray MM Q6HPO PRN PRN Reason: SORE THROAT Last Admin: 03/27/18 10:06 Dose: 1 spray Rosuvastatin Calcium (Crestor -) 20 mg PO [facility] Last Admin: 03/27/18 21:06 Dose: 20 mg Tamsulosin HCl (Flomax -) 0.4 mg PO DAILY@0830 [facility] Last Admin: 03/28/18 08:44 Dose: 0.4 mg *Physical Exam Vital Signs Period Temp Pulse Resp BP Sys/Handy Pulse Ox Last 24 Hr 97.3 F-98.4 F 53-65 18-20 125-165/50-84 95 - Physical Exam General Appearance: Yes: Nourished, Appropriately Dressed, Apparent Distress HEENT: positive: LOLA, Normal Voice, Symmetrical, Pharynx Normal, Hearing Grossly Normal. negative: Tonsillar Exudate, Tonsillar Erythema, Nasal Congestion, Hearing Decreased, Excessive drooling Neck: positive: Supple. negative: Carotid bruit Respiratory/Chest: positive: Lungs Clear. negative: Chest Tender, Normal Breath Sounds, Respiratory Distress, Accessory Muscle Use, Labored Respiration, Crackles, Rales, Wheezing Cardiovascular: positive: Regular Rhythm, Regular Rate, S1, S2, Edema, JVD Vascular Pulses: Dorsalis-Pedis (R): 2+, Doralis-Pedis (L): 2+ Gastrointestinal/Abdominal: positive: Tender, Tenderness Male Genitalia: positive: normal genitalia. negative: normal prostate ( enlarged ), discharge Rectal Exam: positive: heme negative stool, normal exam, normal rectal tone, hemorrhoids (external hemorrhoids, no internal felt ). negative: NL Prostate ( diffusely enlarged, no nodularity appreciated ), melena, heme positive stool Extremity: positive: Normal Capillary Refill, Normal Inspection, Pedal Edema, Swelling. negative: Calf Tenderness, Erythema, Inflammation Neurologic: CN intact, no facial droop, no slurring of speech, moves all extremities equally, sensory intact CBCD WBC 8.4 K/mm3 (4.0-10.0) 03/26/18 06:00 RBC 4.69 M/mm3 (4.00-5.60) 03/26/18 06:00 Hgb 11.4 GM/dL (11.7-16.9) L 03/26/18 06:00 Hct 36.5 % (35.4-49) 03/26/18 06:00 MCV 77.8 fl (80-96) L 03/26/18 06:00 MCHC 31.2 g/dl (32.0-35.9) L 03/26/18 06:00 RDW 14.8 % (11.9-15.9) 03/26/18 06:00 Plt Count 147 K/MM3 (134-434) 03/26/18 06:00 MPV 9.9 fl (7.5-11.1) 03/26/18 06:00 CMP Sodium 141 mmol/L (136-145) 03/26/18 06:00 Potassium 4.2 mmol/L (3.5-5.1) 03/26/18 06:00 Chloride 112 mmol/L (98-107) H 03/26/18 06:00 Carbon Dioxide 21 mmol/L (21-32) 03/26/18 06:00 Anion Gap 9 MMOL/L (8-16) 03/26/18 06:00 BUN 60 mg/dL (7-18) H 03/26/18 06:00 Creatinine 2.2 mg/dL (0.55-1.3) H 03/26/18 06:00 Creat Clearance w eGFR 28.59 (>60) 03/26/18 06:00 Calcium 8.2 mg/dL (8.5-10.1) L 03/26/18 06:00 Total Bilirubin 0.4 mg/dL (0.2-1) 03/23/18 22:11 AST 154 U/L (15-37) H 03/23/18 22:11 ALT 40 U/L (13-61) 03/23/18 22:11 Alkaline Phosphatase 72 U/L (45-117) 03/23/18 22:11 Total Protein 6.3 g/dl (6.4-8.2) L 03/23/18 22:11 Albumin 3.6 g/dl (3.4-5.0) 03/23/18 22:11 - RADIOLOGY CT head reviewed Plan: 87 year old male with a significant PMH of dementia, hypertension, CAD, CKA, polycystic kidney disease, colon ca, and GOUT who presentrf to the emergency department with lightheadedness for the past several days. As per the patient's , the patient has fallen about 9 times in the past few days secondary to lightheadedness. He reported associated headache. Neurologically without deficits. 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 Reports feeling well this AM and no new symptoms. Carotid Doppler completed and moderate atherosclerotic disease, 60-79% b/l ICA stenosis, vascular note reviewed, surgical intervention. Underlying dementia, on donepizil, would not change at this time. Recommend outpatient followup for formal memory testing and can then determine patient's cognitive status when not acutely inpatient. Increased hydration recommended, cardiology follow up. NSGY notes reviewed, setting adjustment to shunt per NSGY. Feels better today. Discussed with PCP yesterday. Medical optimization and possible d/c planning.
--- NOTE | 2018-03-28 09:46 | CONSULT ---
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, Other (hydrocephalus) Cardio/Vascular: Yes: CAD, HTN, Hyperlipdemia Renal/: Yes: Renal Inusuff, UTI, Other (PKD) Rheumatology: Yes: Gout - Alcohol/Substance Use Hx Alcohol Use: No - Smoking History Smoking history: Never smoked Have you smoked in the past 12 months: No If you are a former smoker, when did you quit?: 1966 - Social History Usual Living Arrangement: With Spouse Home Medications - Allergies Allergies/Adverse Reactions: Allergies Allergy/AdvReac Type Severity Reaction Status Date / Time No Known Allergies Allergy Verified 11/07/17 23:18 - Home Medications Home Medications: Ambulatory Orders Aspirin [ASA -] 81 mg PO DAILY 04/05/17 Donepezil HCl [Aricept -] 10 mg PO DAILY 04/05/17 Escitalopram Oxalate [Lexapro -] 10 mg PO DAILY 04/05/17 hydrALAZINE HCL [Apresoline -] 10 mg PO BID 04/05/17 Acetaminophen [Tylenol .Regular Strength -] 650 mg PO Q6H PRN tablet 04/15/17 Amino Acids/Protein Hydrolys [Prosource No Carb Liquid Pkt] 30 ml PO BID@0800, 1730 packet 04/15/17 Ascorbic Acid [Vitamin C -] 250 mg PO DAILY tablet 04/15/17 Multivitamins [Multivit ([facility] Formulary)] 1 tab PO DAILY tab 04/15/17 Pantoprazole Sodium [Protonix -] 40 mg PO DAILY tablet.ec 04/15/17 Rosuvastatin [Crestor -] 20 mg PO HS tablet 04/15/17 Tamsulosin HCl [Flomax -] 0.4 mg PO DAILY@0830 cap.er.24h 04/15/17 Febuxostat [Uloric] 40 mg PO DAILY 06/18/17 Memantine HCl [Namenda -] 5 mg PO BID 06/18/17 Mirabegron [Myrbetriq] 25 mg PO DAILY 06/18/17 Albuterol 0.083% Nebulizer Connie [Ventolin 0.083% Nebulizer Soln -] 1 amp NEB Q6H PRN amp 06/22/17 Nystatin/Triamcinolone Top Cr [Mycolog II -] 1 applic TP BID #90 applic Olanzapine [Zyprexa -] 5 mg PO HS tablet 06/22/17 clonazePAM [Klonopin -] 0.5 mg PO DAILY tablet [facility] 03/27 TAB 06/22/17 Acetaminophen [Tylenol .Regular Strength -] 650 mg PO Q6H PRN tablet 09/17/17 Nebivolol [Bystolic -] 5 mg PO DAILY tab 09/17/17 Amoxicillin - [Amoxicillin 250mg Capsule -] 250 mg PO BID #14 capsule 11/06/17 Methyl Salicylate/Menthol Oint [Analgesic [place] -] 1 applic TP BID applic Amoxicillin - [Amoxicillin 250mg Capsule -] 250 mg PO BID #10 capsule 03/28/18 Heparin - 5,000 unit SQ TID vial 03/28/18 Meclizine HCl [Antivert -] 25 mg PO TID tablet 03/28/18 Phenol [Chloraseptic -] 1 spray MM Q6HPO PRN bottle 03/28/18 Physical Exam Vital Signs: Vital Signs Temperature 97.9 F 03/28/18 08:47 Pulse Rate 53 L 03/28/18 08:47 Respiratory Rate 20 03/28/18 08:47 Blood Pressure 165/66 03/28/18 08:47 O2 Sat by Pulse Oximetry (%) 95 03/27/18 20:23 Extremities: Yes: Other (+tender dystrophic mycotic nails x 10 with subungual debris, +inflammed nail beds, +distal seperation of nails from bed) Labs: CBC, BMP 03/26/18 06:00 03/26/18 06:00 Assessment/Plan onychomycosis pain Debride nails x 10. Would benefit from Topica Antifungal. Foot Care Q8 weeks.
[2018-03-28] MEDS ORDERED: PT OWN MED DRAWER 7, Y5N ONE (09:51)
[2018-03-28] MEDS: ESCITALOPRAM OXALATE 10 MG TABLET (FP) PO SCH (09:54)
[2018-03-28] MEDS: clonazePAM 0.5 MG TABLET PO SCH (09:54)
[2018-03-28] MEDS: ASPIRIN 81 MG CHEWABLE TABLETS PO SCH (09:54)
[2018-03-28] MEDS: MULTIVITAMINS (DAILY MVI) TABLET (FP) PO SCH (09:54)
[2018-03-28] MEDS: PANTOPRAZOLE 40 MG TABLET (FP) PO SCH (09:55)
[2018-03-28] MEDS: AMOXICILLIN 250 MG CAPSULE PO SCH (09:55)
[2018-03-28] MEDS: ASCORBIC ACID 250 MG TABLET (FP) PO SCH (09:55)
[2018-03-28] MEDS: hydrALAZINE HCL 10 MG TABLET PO SCH (09:55)
[2018-03-28] MEDS: MEMANTINE HCL 5 MG TABLET (UD) PO SCH (09:55)
[2018-03-28] MEDS: METHYL SALICYLATE/MENTHOL OINT 30 GM TUBE TP SCH (09:56)
[2018-03-28] MEDS: NEBIVOLOL 5 MG TABLET (FP) PO SCH (09:56)
[2018-03-28] MEDS: NYSTATIN/TRIAMCINOLONE TOPICAL CREAM 15 GM TUBE TP SCH (09:57)
[2018-03-28] MEDS: FEBUXOSTAT 40 MG TAB PO SCH (09:58)
[2018-03-28] MEDS: BENZOCAINE/MENTH/CETYLPYRD CL 1 EACH LOZENGE MM PRN (09:59)
[2018-03-28 10:27] LABS: HEMOGLOBIN 12.5 GM/dL (11.7-16.9); MCH 24.1 pg (25.7-33.7); MCHC 30.5 g/dl (32.0-35.9); PLATELET COUNT 181 K/MM3 (134-434); RBC 5.19 M/mm3 (4.00-5.60); RDW 15.4 % (11.9-15.9); WHITE BLOOD COUNT 10.1 K/mm3 (4.0-10.0)
[2018-03-28] MEDS: ACETAMINOPHEN 325 MG TABLET (FP) PO PRN (10:34)
[2018-03-28 10:59] LABS: ANION GAP 6 MMOL/L (8-16); BLOOD UREA NITROGEN 64 mg/dL (7-18); CALCIUM 8.4 mg/dL (8.5-10.1); CHLORIDE 111 mmol/L (98-107); CO2 22 mmol/L (21-32); GLUCOSE,RANDOM 116 mg/dL (74-106); POTASSIUM 4.5 mmol/L (3.5-5.1); SODIUM 140 mmol/L (136-145)
--- NOTE | 2018-03-28 13:47 | DS ---
Physical Examination Vital Signs: Vital Signs Temperature 97.9 F 03/28/18 13:24 Pulse Rate 63 03/28/18 13:24 Respiratory Rate 16 03/28/18 13:24 Blood Pressure 108/46 L 03/28/18 13:24 O2 Sat by Pulse Oximetry (%) 97 03/28/18 09:00 Constitutional: Yes: No Distress Eyes: Yes: WNL HENT: Yes: WNL Neck: Yes: WNL Cardiovascular: Yes: Pulse Irregular Respiratory: Yes: WNL Gastrointestinal: Yes: WNL Renal/: Yes: WNL Musculoskeletal: Yes: Muscle Weakness Extremities: Yes: WNL Edema: No Peripheral Pulses WNL: Yes Integumentary: Yes: WNL Wound/Incision: Yes: Clean/Dry Neurological: Yes: Unsteady Gait ...Motor Strength: LLE, RLE Psychiatric: Yes: Other Labs: CBC, BMP 03/28/18 10:15 03/28/18 10:15 Discharge Summary Reason For Visit: SYNCOPE Current Active Problems Leukocytosis (leucocytosis) (Acute) Syncope (Acute) Procedures: Principal: CT HEAD Hospital Course: LABS, CX, IV ABX, TREATED WITH CEFTRIAXONE IV, IMPROVED, NOW NEEDS REHAB/PT Condition: Improved - Instructions Diet, Activity, Other Instructions: AGGRESSIVE REHAB AT [facility] Referrals: Natalya Rae MD [Primary Care Provider] - Disposition: LONGTERM FACILITY - Home Medications Comprehensive Discharge Medication List: Ambulatory Orders Aspirin [ASA -] 81 mg PO DAILY 04/05/17 Donepezil HCl [Aricept -] 10 mg PO DAILY 04/05/17 Escitalopram Oxalate [Lexapro -] 10 mg PO DAILY 04/05/17 hydrALAZINE HCL [Apresoline -] 10 mg PO BID 04/05/17 Acetaminophen [Tylenol .Regular Strength -] 650 mg PO Q6H PRN tablet 04/15/17 Amino Acids/Protein Hydrolys [Prosource No Carb Liquid Pkt] 30 ml PO BID@0800, 1730 packet 04/15/17 Ascorbic Acid [Vitamin C -] 250 mg PO DAILY tablet 04/15/17 Multivitamins [Multivit ([facility] Formulary)] 1 tab PO DAILY tab 04/15/17 Pantoprazole Sodium [Protonix -] 40 mg PO DAILY tablet.ec 04/15/17 Rosuvastatin [Crestor -] 20 mg PO HS tablet 04/15/17 Tamsulosin HCl [Flomax -] 0.4 mg PO DAILY@0830 cap.er.24h 04/15/17 Febuxostat [Uloric] 40 mg PO DAILY 06/18/17 Memantine HCl [Namenda -] 5 mg PO BID 06/18/17 Mirabegron [Myrbetriq] 25 mg PO DAILY 06/18/17 Albuterol 0.083% Nebulizer Connie [Ventolin 0.083% Nebulizer Soln -] 1 amp NEB Q6H PRN amp 06/22/17 Nystatin/Triamcinolone Top Cr [Mycolog II -] 1 applic TP BID #90 applic Olanzapine [Zyprexa -] 5 mg PO HS tablet 06/22/17 clonazePAM [Klonopin -] 0.5 mg PO DAILY tablet MDD / TAB 06/22/17 Acetaminophen [Tylenol .Regular Strength -] 650 mg PO Q6H PRN tablet 09/17/17 Nebivolol [Bystolic -] 5 mg PO DAILY tab 09/17/17 Amoxicillin - [Amoxicillin 250mg Capsule -] 250 mg PO BID #14 capsule 11/06/17 Methyl Salicylate/Menthol Oint [Analgesic [place] -] 1 applic TP BID applic Amoxicillin - [Amoxicillin 250mg Capsule -] 250 mg PO BID #10 capsule 03/28/18 Heparin - 5,000 unit SQ TID vial 03/28/18 Meclizine HCl [Antivert -] 25 mg PO TID tablet 03/28/18 Phenol [Chloraseptic -] 1 spray MM Q6HPO PRN bottle 03/28/18
--- NOTE | 2018-03-28 14:53 | PN ---
Progress Note, Physician History of Present Illness: Pt seen and examined at bedside. He is awake and appears comfortable. He denies shortness of breath. - Current Medication List Current Medications: Active Medications Acetaminophen (Tylenol -) 650 mg PO Q6H PRN PRN Reason: PAIN LEVEL 1-5 Last Admin: 03/28/18 10:34 Dose: 650 mg Albuterol Sulfate (Ventolin 0.083% Nebulizer Soln -) 1 amp NEB Q6H PRN PRN Reason: SHORT OF BREATH/WHEEZING Amino Acids (Prosource No Carb Liquid Pkt) 30 ml PO BID@0800,1730 [facility] Last Admin: 03/28/18 08:44 Dose: 30 ml Amoxicillin (Amoxicillin -) 250 mg PO BID [facility] Last Admin: 03/28/18 09:55 Dose: 250 mg Ascorbic Acid (Vitamin C -) 250 mg PO DAILY [facility] Last Admin: 03/28/18 09:55 Dose: 250 mg Aspirin (Asa -) 81 mg PO DAILY [facility] Last Admin: 03/28/18 09:54 Dose: 81 mg Benzocaine/Menthol (Cepacol Lozenge -) 1 each MM PRN PRN PRN Reason: SORE THROAT Last Admin: 03/28/18 09:59 Dose: 1 each Clonazepam (Klonopin -) 0.5 mg PO DAILY [facility] Last Admin: 03/28/18 09:54 Dose: 0.5 mg Donepezil HCl (Aricept -) 10 mg PO HS [facility] Last Admin: 03/27/18 21:06 Dose: 10 mg Escitalopram Oxalate (Lexapro -) 10 mg PO DAILY [facility] Last Admin: 03/28/18 09:54 Dose: 10 mg Febuxostat (Uloric -) 40 mg PO DAILY [facility] Last Admin: 03/28/18 09:58 Dose: 40 mg Heparin Sodium (Porcine) (Heparin -) 5,000 unit SQ TID [facility] Last Admin: 03/28/18 13:21 Dose: 5,000 unit Hydralazine HCl (Apresoline -) 10 mg PO BID [facility] Last Admin: 03/28/18 09:55 Dose: 10 mg Meclizine HCl (Antivert -) 25 mg PO TID [facility] Last Admin: 03/28/18 13:21 Dose: 25 mg Memantine (Namenda -) 5 mg PO BID [facility] Last Admin: 03/28/18 09:55 Dose: 5 mg Methyl Salicylate (Morro-Andrea -) 1 applic TP BID [facility] Last Admin: 03/28/18 09:56 Dose: Not Given Multivitamins/Minerals/Vitamin C (Tab-A-Vit -) 1 tab PO DAILY [facility] Last Admin: 03/28/18 09:54 Dose: 1 tab Nebivolol (Bystolic -) 5 mg PO DAILY [facility] Last Admin: 03/28/18 09:56 Dose: 5 mg Non-Formulary Medication (Mirabegron [Myrbetriq]) 25 mg PO DAILY [facility] Nystatin/Triamcinolone Acetonide (Mycolog Ii Cream -) 1 applic TP BID [facility] Last Admin: 03/28/18 09:57 Dose: 1 applic Olanzapine (Zyprexa -) 5 mg PO HS [facility] Last Admin: 03/27/18 21:05 Dose: 5 mg Pantoprazole Sodium (Protonix -) 40 mg PO DAILY [facility] Last Admin: 03/28/18 09:55 Dose: 40 mg Phenol/Menthol (Chloraseptic -) 1 spray MM Q6HPO PRN PRN Reason: SORE THROAT Last Admin: 03/27/18 10:06 Dose: 1 spray Rosuvastatin Calcium (Crestor -) 20 mg PO HS [facility] Last Admin: 03/27/18 21:06 Dose: 20 mg Tamsulosin HCl (Flomax -) 0.4 mg PO DAILY@0830 [facility] Last Admin: 03/28/18 08:44 Dose: 0.4 mg - Objective Vital Signs: Vital Signs Temperature 97.9 F 03/28/18 13:24 Pulse Rate 63 03/28/18 13:24 Respiratory Rate 16 03/28/18 13:24 Blood Pressure 108/46 L 03/28/18 13:24 O2 Sat by Pulse Oximetry (%) 97 03/28/18 09:00 Constitutional: Yes: Calm Eyes: Yes: Conjunctiva Clear HENT: Yes: Atraumatic Cardiovascular: Yes: S1, S2 Respiratory: Yes: CTA Bilaterally Gastrointestinal: Yes: Soft, Abdomen, Obese Genitourinary: Yes: WNL Musculoskeletal: Yes: WNL Edema: No Neurological: Yes: Oriented, Pre-Existing Deficit Labs: CBC, BMP 03/28/18 10:15 03/28/18 10:15 INR, PTT INR 1.03 (0.83-1.09) 03/23/18 23:15 Problem List - Problems (1) Syncope Code(s): R55 - SYNCOPE AND COLLAPSE (2) GARRISON (acute kidney injury) Code(s): N17.9 - ACUTE KIDNEY FAILURE, UNSPECIFIED (3) CKD (chronic kidney disease) Code(s): N18.9 - CHRONIC KIDNEY DISEASE, UNSPECIFIED Assessment/Plan Current Medications Generic Name Dose Route Start Last Admin Trade Name Freq PRN Reason Stop Dose Admin Acetaminophen 650 mg 03/24/18 09:44 03/28/18 10:34 Tylenol - PO 650 mg Q6H PRN Administration PAIN LEVEL 1-5 Albuterol Sulfate 1 amp 03/24/18 09:44 Ventolin 0.083% Nebulizer Soln - NEB Q6H PRN SHORT OF BREATH/WHEEZING Amino Acids 30 ml 03/24/18 17:30 03/28/18 08:44 Prosource No Carb Liquid Pkt PO 30 ml BID@0800,1730 MIT[facility] Administration Amoxicillin 250 mg 03/27/18 12:30 03/28/18 09:55 Amoxicillin - PO 250 mg BID MITCH Administration Ascorbic Acid 250 mg 03/24/18 10:00 03/28/18 09:55 Vitamin C - PO 250 mg DAILY MIT[facility] Administration Aspirin 81 mg 03/24/18 10:00 03/28/18 09:54 Asa - PO 81 mg DAILY [facility] Administration Benzocaine/Menthol 1 each 03/24/18 03:56 03/28/18 09:59 Cepacol Lozenge - MM 1 each PRN PRN Administration SORE THROAT Clonazepam 0.5 mg 03/24/18 10:00 03/28/18 09:54 Klonopin - PO 0.5 mg DAILY MITCH Administration Donepezil HCl 10 mg 03/24/18 22:00 03/27/18 21:06 Aricept - PO 10 mg HS MITCH Administration Escitalopram Oxalate 10 mg 03/24/18 10:00 03/28/18 09:54 Lexapro - PO 10 mg DAILY [facility] Administration Febuxostat 40 mg 03/24/18 10:00 03/28/18 09:58 Uloric - PO 40 mg DAILY [facility] Administration Heparin Sodium (Porcine) 5,000 unit 03/24/18 00:02 03/28/18 13:21 Heparin - SQ 5,000 unit TID MITCH Administration Hydralazine HCl 10 mg 03/24/18 10:00 03/28/18 09:55 Apresoline - PO 10 mg BID MITCH Administration Meclizine HCl 25 mg 03/24/18 14:00 03/28/18 13:21 Antivert - PO 25 mg TID MITCH Administration Memantine 5 mg 03/24/18 10:00 03/28/18 09:55 Namenda - PO 5 mg BID [facility] Administration Methyl Salicylate 1 applic 03/24/18 10:00 03/28/18 09:56 Morro-Andrea - TP Not Given BID [facility] Multivitamins/Minerals/Vitamin C 1 tab 03/24/18 10:00 03/28/18 09:54 Tab-A-Vit - PO 1 tab DAILY [facility]CH Administration Nebivolol 5 mg 03/24/18 10:00 03/28/18 09:56 Bystolic - PO 5 mg DAILY [facility] Administration Non-Formulary Medication 25 mg 03/24/18 10:00 Mirabegron [Myrbetriq] PO DAILY [facility] Nystatin/Triamcinolone Acetonide 1 applic 03/24/18 10:00 03/28/18 09:57 Mycolog Ii Cream - TP 1 applic BID MITCH Administration Olanzapine 5 mg 03/24/18 22:00 03/27/18 21:05 Zyprexa - PO 5 mg HS [facility]CH Administration Pantoprazole Sodium 40 mg 03/24/18 10:00 03/28/18 09:55 Protonix - PO 40 mg DAILY [facility] Administration Phenol/Menthol 1 spray 03/26/18 13:26 03/27/18 10:06 Chloraseptic - MM 1 spray Q6HPO PRN Administration SORE THROAT Rosuvastatin Calcium 20 mg 03/24/18 22:00 03/27/18 21:06 Crestor - PO 20 mg HS MITCH Administration Tamsulosin HCl 0.4 mg 03/25/18 08:30 03/28/18 08:44 Flomax - PO 0.4 mg DAILY@0830 [facility] Administration Impression 1. CKD 2. PKD 3. dizziness 4. HTN 5. weakness 6. loss of appetite 7. prostate cancer 8. dementia 9. hyperlipidemia 10. GARRISON 11. 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
--- NOTE | 2018-03-28 16:39 | PN ---
Progress Note (short form) - Note Progress Note: Patient sleeping when encountered but earlier reported feeling well. Spouse concerned that he is worse today. No acute plans for further shunt adjustment. Patient may benefit from aggressive Rehabilitation. If Hydrocephalus is the primary etiology for his decline, it will likely declare itself in the coming weeks.
[2018-03-28 18:05] VITALS: BP 157/78; PULSE 62; TEMP 98.2
== END 2018-03-28 17:43 | DRG 56 ==
LOC: JER 18:32 → JERBED 03-24 00:10 → J4S 03-25 02:44 → OBSVTOIN 03-25 11:04
PROVIDERS: ADMIT Internal Medicine; ATTEND Family Medicine
PROC: 0HBRXZZ Excision of Toe Nail, External Approach (ICD-10-PCS; principal; 2018-03-28)
PROC: 0HBRXZZ Excision of Toe Nail, External Approach (ICD-10-PCS; 2018-03-28)
PROC: 0HBRXZZ Excision of Toe Nail, External Approach (ICD-10-PCS; 2018-03-28)
PROC: 0HBRXZZ Excision of Toe Nail, External Approach (ICD-10-PCS; 2018-03-28)
PROC: 0HBRXZZ Excision of Toe Nail, External Approach (ICD-10-PCS; 2018-03-28)
PROC: 0HBRXZZ Excision of Toe Nail, External Approach (ICD-10-PCS; 2018-03-28)
PROC: 0HBRXZZ Excision of Toe Nail, External Approach (ICD-10-PCS; 2018-03-28)
PROC: 0HBRXZZ Excision of Toe Nail, External Approach (ICD-10-PCS; 2018-03-28)
PROC: 0HBRXZZ Excision of Toe Nail, External Approach (ICD-10-PCS; 2018-03-28)
PROC: 0HBRXZZ Excision of Toe Nail, External Approach (ICD-10-PCS; 2018-03-28)
DX: G91.2 (Idiopathic) normal pressure hydrocephalus (principal); G92 Toxic encephalopathy; N17.9 Acute kidney failure, unspecified; M62.82 Rhabdomyolysis; N13.30 Unspecified hydronephrosis; Q61.2 Polycystic kidney, adult type; R55 Syncope and collapse; R42 Dizziness and giddiness; T44.6X5A Adverse effect of alpha-adrenoreceptor antagonists, initial encounter; I65.23 Occlusion and stenosis of bilateral carotid arteries; Z98.2 Presence of cerebrospinal fluid drainage device; F03.90 Unspecified dementia, unspecified severity, without behavioral disturbance, psychotic disturbance, mood disturbance, and anxiety; D72.829 Elevated white blood cell count, unspecified; Z85.038 Personal history of other malignant neoplasm of large intestine; M10.9 Gout, unspecified; I25.10 Atherosclerotic heart disease of native coronary artery without angina pectoris; E78.5 Hyperlipidemia, unspecified; F32.9 Major depressive disorder, single episode, unspecified; I12.9 Hypertensive chronic kidney disease with stage 1 through stage 4 chronic kidney disease, or unspecified chronic kidney disease; N18.9 Chronic kidney disease, unspecified; Z95.4 Presence of other heart-valve replacement; Z87.891 Personal history of nicotine dependence; R26.81 Unsteadiness on feet; Z91.81 History of falling; N40.0 Benign prostatic hyperplasia without lower urinary tract symptoms; Z85.46 Personal history of malignant neoplasm of prostate; I65.29 Occlusion and stenosis of unspecified carotid artery; B35.1 Tinea unguium; S09.8XXA Other specified injuries of head, initial encounter; W01.0XXA Fall on same level from slipping, tripping and stumbling without subsequent striking against object, initial encounter; Y93.89 Activity, other specified; Y92.018 Other place in single-family (private) house as the place of occurrence of the external cause; Y99.8 Other external cause status; J02.9 Acute pharyngitis, unspecified; E86.0 Dehydration
CPT/HCPCS: 36415; 70450-TC; 71045-TC-FY; 80048; 80053; 81003; 81015; 82272; 82550; 82553; 83605; 83735; 84100; 84484; 85025; 85027; 85610; 87040; 87070; 87086; 87804; 87880; 93005; 93010; 93880-TC; 93970-TC; 94010; 97116-GP; 97161-GP; 99284-25; G0378; J1644; J7030

== ENCOUNTER 2018-08-05 12:23 | Inpatient (IN) | payer OTHER ==
--- NOTE | 2018-08-05 14:19 | PDOC ---
History of Present Illness - General Chief Complaint: Rectal Bleed Stated Complaint: UTI/ RECTAL BLEED Time Seen by Provider: 08/05/18 14:19 History Source: Patient Exam Limitations: No Limitations - History of Present Illness Initial Comments: 08/05/18 14:45 87 year old male with PMH prostate CA s/p seeding, chronic UTI, HTN, HLD, dementia, NPH s/p CREDIT VERIFIER shunt, polycystic kidney disease, born with 1 kidney, DM, CAGB presented to ED for generalized weakness x1 week with hematuria. Pt stated his PCP Dr. Haas/Dr. Rae gave him IV antibiotics at home for 7 days without resolution of his symptoms, prompting his to come to the ED. Pt denied chest pain, shortness of breath, palpitations, fever, chills, nausea, vomiting, diarrhea, blood in stool, lightheadedness. Allergies: NKDA Past History - Past Medical History Allergies/Adverse Reactions: Allergies Allergy/AdvReac Type Severity Reaction Status Date / Time No Known Allergies Allergy Verified 08/05/18 13:02 Home Medications: Ambulatory Orders Aspirin [ASA -] 81 mg PO DAILY 04/05/17 Escitalopram Oxalate [Lexapro -] 10 mg PO DAILY 04/05/17 hydrALAZINE HCL [Apresoline -] 10 mg PO BID 04/05/17 Rosuvastatin [Crestor -] 20 mg PO HS tablet 04/15/17 Tamsulosin HCl [Flomax -] 0.4 mg PO DAILY@0830 cap.er.24h 04/15/17 Memantine HCl [Namenda -] 10 mg PO BID 06/18/17 Mirabegron [Myrbetriq] 25 mg PO DAILY 06/18/17 Acetaminophen [Tylenol .Regular Strength -] 650 mg PO Q6H PRN tablet 09/17/17 Nebivolol [Bystolic -] 5 mg PO DAILY tab 09/17/17 Olanzapine [Zyprexa -] 2.5 mg PO HS 08/05/18 Anemia: No Asthma: No Cancer: Yes (- prostate) Cardiac Disorders: Yes CVA: (NPH, CREDIT VERIFIER shunt) COPD: No CHF: No DVT: No Dementia: Yes Diabetes: No GI Disorders: No Disorders: Yes (CKD, 1 KIDNEY) HTN: Yes Hypercholesterolemia: Yes Liver Disease: No Psychiatric Problems: Yes (depression) Seizures: No Thyroid Disease: No - Surgical History Abdominal Surgery: No Appendectomy: No Cardiac Surgery: Yes (open heart sx for valve replacement 2005) Cholecystectomy: No Lung Surgery: No Neurologic Surgery: Yes (CREDIT VERIFIER SHUNT) Orthopedic Surgery: Yes - Immunization History Immunization Up to Date: (UNKNOWN) - Suicide/Smoking/Psychosocial Hx Smoking History: Never smoked Have you smoked in the past 12 months: No If you are a former smoker, when did you quit?: 1967 Hx Alcohol Use: No Drug/Substance Use Hx: No Substance Use Type: None Hx Substance Use Treatment: No Review of Systems - Review of Systems Able to Perform ROS?: Yes Comments:: 08/05/18 14:47 General: admitted to generalized weakness. denied fever, chills. HEENT: denied sore throat, rhinorrhea, ear pain. Heart: denied chest pain, palpitations, syncope, diaphoresis. Respiratory: denied shortness of breath, cough, sputum production, hemoptysis. Abdomen: denied abdominal pain, nausea, vomiting, diarrhea, constipation, blood in stool. : admitted to hematuria. denied dysuria, increased urinary frequency, urinary incontinence, flank pain. Back: denied back pain. Musculoskeletal: denied joint pain, muscle pain, joint swelling. Neurological: denied headache, dizziness, numbness, tingling, weakness. Skin: denied rash, laceration, abrasion. *Physical Exam - Vital Signs Last Vital Signs Temp Pulse Resp BP Pulse Ox 97.8 F 51 L 18 181/56 H 96 08/05/18 13:04 08/05/18 13:04 08/05/18 13:04 08/05/18 13:04 08/05/18 13:04 - Physical Exam Comments: 08/05/18 14:48 Constitutional: Well-nourished, Well-developed, appearing stated age. HEENT: head is normocephalic, atraumatic. EOMI. PERRLA. Neck: supple. Full ROM. Heart: regular rhythm. no murmurs, rubs or gallops. Lungs: clear to auscultation bilaterally. no crackles, rhonchi or wheezing. no stridor. Abdomen: soft, mild suprapubic tenderness to palpation. normal bowel sounds. no rebound, guarding, masses. Extremities: peripheral pulses intact. no lower extremity edema. Neurological: CN 2-12 grossly intact. moves all four extremities. Psych: awake, alert, oriented x3. follows commands. answers questions appropriately. ED Treatment Course - LABORATORY CBC & Chemistry Diagram: 08/05/18 14:33 08/05/18 14:33 Medical Decision Making - Medical Decision Making 08/05/18 14:48 87 year old male with above PMH presented to ED for persistent generalized weakness and hematuria x7 days. Initial Vital Signs Temp Pulse Resp BP Pulse Ox 97.8 F 51 L 18 181/56 H 96 08/05/18 13:04 08/05/18 13:04 08/05/18 13:04 08/05/18 13:04 08/05/18 13:04 Afebrile. Bradycardic. No tachypnea. Hypertensive. No hypoxia on room air. Labs ordered: CBC, CMP, T/S, coags Medications ordered: none Imaging ordered: none EKG performed at 1514: rate 48, regular rhythm, normal axis, RBBB, no acute ST changes. Similar to prior EKG performed 03/23/18. 08/05/18 14:49 CBC WBC 7.0 K/mm3 (4.0-10.0) 08/05/18 14:33 RBC 5.16 M/mm3 (4.00-5.60) 08/05/18 14:33 Hgb 12.8 GM/dL (11.7-16.9) 08/05/18 14:33 Hct 40.9 % (35.4-49) 08/05/18 14:33 MCV 79.4 fl (80-96) L 08/05/18 14:33 MCH 24.9 pg (25.7-33.7) L 08/05/18 14:33 MCHC 31.3 g/dl (32.0-35.9) L 08/05/18 14:33 RDW 14.0 % (11.9-15.9) 08/05/18 14:33 Plt Count 160 K/MM3 (134-434) 08/05/18 14:33 MPV 10.0 fl (7.5-11.1) 08/05/18 14:33 Absolute Neuts (auto) 4.4 K/mm3 (1.5-8.0) 08/05/18 14:33 Neutrophils % 62.0 % (42.8-82.8) 08/05/18 14:33 Lymphocytes % 26.2 % (8-40) D 08/05/18 14:33 Monocytes % 8.5 % (3.8-10.2) 08/05/18 14:33 Eosinophils % 2.4 % (0-4.5) D 08/05/18 14:33 Basophils % 0.9 % (0-2.0) 08/05/18 14:33 Nucleated RBC % 0 % (0-0) 08/05/18 14:33 No leukocytosis. No anemia. No thrombocytopenia. 08/05/18 15:31 CMP Sodium 136 mmol/L (136-145) 08/05/18 14:33 Potassium 5.1 mmol/L (3.5-5.1) 08/05/18 14:33 Chloride 107 mmol/L (98-107) 08/05/18 14:33 Carbon Dioxide 23 mmol/L (21-32) 08/05/18 14:33 Anion Gap 5 MMOL/L (8-16) L 08/05/18 14:33 BUN 47 mg/dL (7-18) H 08/05/18 14:33 Creatinine 2.0 mg/dL (0.55-1.3) H 08/05/18 14:33 Est GFR (CKD-EPI)AfAm 34.25 08/05/18 14:33 Est GFR (CKD-EPI)NonAf 29.56 08/05/18 14:33 Random Glucose 208 mg/dL (74-106) H 08/05/18 14:33 Calcium 8.9 mg/dL (8.5-10.1) 08/05/18 14:33 Total Bilirubin 0.2 mg/dL (0.2-1) 08/05/18 14:33 AST 21 U/L (15-37) 08/05/18 14:33 ALT 31 U/L (13-61) 08/05/18 14:33 Alkaline Phosphatase 76 U/L (45-117) 08/05/18 14:33 Total Protein 6.4 g/dl (6.4-8.2) 08/05/18 14:33 Albumin 3.4 g/dl (3.4-5.0) 08/05/18 14:33 Lipase 473 U/L (73-393) H 08/05/18 14:33 No electrolyte abnormalities. Cr at baseline. No transaminitis. Lipase <3X normal. 08/05/18 16:10 Pt unable to urinate. Pending UA/UC. Medications ordered: normal saline 1000 cc bolus Last ECHO EF 59% 08/05/18 16:59 Urine Test Results Urine Color Yellow 08/05/18 16:17 Urine Appearance Turbid 08/05/18 16:17 Urine pH 5.0 (5.0-8.0) 08/05/18 16:17 Ur Specific [place] 1.016 (1.010-1.035) 08/05/18 16:17 Urine Protein 3+ (NEGATIVE) H 08/05/18 16:17 Urine Glucose (UA) Trace (NEGATIVE) 08/05/18 16:17 Urine Ketones Negative (NEGATIVE) 08/05/18 16:17 Urine Blood 2+ (NEGATIVE) H 08/05/18 16:17 Urine Nitrite Negative (NEGATIVE) 08/05/18 16:17 Urine Bilirubin Negative (NEGATIVE) 08/05/18 16:17 Ur Leukocyte Esterase 3+ (NEGATIVE) H 08/05/18 16:17 WBC 2000+ Pt has UTI. Pt to be admitted for failed outpatient antibiotics. Labs ordered: blood cultures Vital Signs Temperature 97.8 F 08/05/18 13:04 Pulse Rate 50 L 08/05/18 17:00 Respiratory Rate 18 08/05/18 17:00 Blood Pressure 166/53 L 08/05/18 17:00 O2 Sat by Pulse Oximetry (%) 97 08/05/18 17:00 Afebrile. Bradycardia. No tachypnea. Mild hypertension. No hypoxia on room air. 08/05/18 17:45 I spoke with the Sherlyn Dawkins about the patient, pt to be admitted under Dr. Rae's service. Unclear as to what antibiotics pt was on at home. Will leave antibiotic choice up to inpatient team. *DC/Admit/Observation/Transfer Diagnosis at time of Disposition: UTI (urinary tract infection) - Discharge Dispostion Condition at time of disposition: Stable Decision to Admit order: Yes - Referrals Referrals: Natalya Rae MD [Primary Care Provider] - - Patient Instructions - Post Discharge Activity
[2018-08-05 14:42] LABS: BASO % 0.9 % (0-2.0); EOS % 2.4 % (0-4.5); HEMATOCRIT 40.9 % (35.4-49); HEMOGLOBIN 12.8 GM/dL (11.7-16.9); LYMPH % 26.2 % (8-40); MCH 24.9 pg (25.7-33.7); MCHC 31.3 g/dl (32.0-35.9); MEAN CELL VOLUME 79.4 fl (80-96); MONO % 8.5 % (3.8-10.2); PLATELET COUNT 160 K/MM3 (134-434); RBC 5.16 M/mm3 (4.00-5.60)
[2018-08-05 15:18] LABS: ALBUMIN 3.4 g/dl (3.4-5.0); BILIRUBIN,TOTAL 0.2 mg/dL (0.2-1); CALCIUM 8.9 mg/dL (8.5-10.1); POTASSIUM 5.1 mmol/L (3.5-5.1); TOT PROT 6.4 g/dl (6.4-8.2)
[2018-08-05 15:23] LABS: INR 0.95 (0.83-1.09); PROTHROMBIN TIME (PATIENT) 11.2 SEC (9.7-13.0)
--- NOTE | 2018-08-05 15:52 | PDOC ---
Attending Attestation - Resident Resident Name: Kady Morales - ED Attending Attestation I have performed the following: I have examined & evaluated the patient, The case was reviewed & discussed with the resident, I agree w/resident's findings & plan, Exceptions are as noted - HPI HPI: 87 yo M history prostate CA, UTI, HTN, HL, dementia, NPH, polycystic kidney disease, born with 1 kidney, DM, CABG presenting with 1 week history of hematuria. He was treated at home for 1 week with IV abx by his PCP for UTI last week, but did not improve. Denies fever, chills, N/V/D. Appetite has been decreased from baseline. - Physicial Exam PE: GENERAL: Awake, alert, and fully oriented, in no acute distress HEAD: No signs of trauma EYES: PERRLA, EOMI, sclera anicteric, conjunctiva clear ENT: Auricles normal inspection, hearing grossly normal, nares patent, oropharynx clear without exudates. Moist mucosa NECK: Normal ROM, supple, no lymphadenopathy, JVD, or masses LUNGS: Breath sounds equal, clear to auscultation bilaterally. No wheezes, and no crackles HEART: Regular rate and rhythm, normal S1 and S2, no murmurs, rubs or gallops ABDOMEN: Soft, nontender, normoactive bowel sounds. No guarding, no rebound. No masses EXTREMITIES: Normal range of motion, no edema. No clubbing or cyanosis. No cords, erythema, or tenderness NEUROLOGICAL: Cranial nerves II through XII grossly intact. Normal speech. Motor and sensation intact. Uses a walker to ambulate SKIN: Warm, Dry, normal turgor, no rashes or lesions noted. - Medical Decision Making Pt with history of prior UTIs, recently treated at home with IV infusions for UTI. Now presenting with weakness, poor appetite, and hematuria. Will obtain labs, urine.
[2018-08-05] MEDS ORDERED: SODIUM CHLORIDE 1,000 ML IV STA (16:12)
[2018-08-05 16:43] LABS: EPI CELLS 4.1 /HPF (0-5/HPF); URINE APPEARANCE TURBID; URINE BACTERIA 535.1 /hpf (NEGATIVE); URINE BILIRUBIN NEGATIVE (NEGATIVE); URINE CASTS 14 /lpf (0-8); URINE COLOR YELLOW; URINE GLUCOSE (UA) TRACE (NEGATIVE); URINE KETONE NEGATIVE (NEGATIVE); URINE LEUK ESTERASE 3+ (NEGATIVE); URINE NITRITE NEGATIVE (NEGATIVE); URINE PROTEIN 3+ (NEGATIVE); URINE UROBILINOGEN 0.2 mg/dL (0.2-1.0); URINE WBC 2337 /hpf (0-5)
[2018-08-05 17:35] LABS: URINE RBC 29.4 /hpf (0-4)
[2018-08-05 17:36] LABS: YEAST NONE SEEN (NEGATIVE)
[2018-08-05] MEDS ORDERED: ACETAMINOPHEN 325 MG TABLET (FP) PO PRN (17:45)
[2018-08-05] MEDS ORDERED: DOCUSATE SODIUM 100 MG CAPSULE (FP) PO PRN (17:48)
[2018-08-05] MEDS ORDERED: SENNOSIDES 8.6MG TABLET (FP) PO PRN (17:48)
--- NOTE | 2018-08-05 17:53 | HP ---
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 Fajardo on 04/13/17, prostate cancer s/p seed implantation, CAD, and hypertension. Patient presents to the ED today for somnolence and hematuria. reports patient was treated by his PCP with IV abx ( family unable recall which drug) over the course of the past week for UTI (? organism) . However, his condition did not improve and he remained with trace to small hematuria in diapers, decreased appetite and lethargy. PAtient was deemed to fail outpt management of UTI and recommended for admission. In ED: Vitals were: T 97.9, HT 63bpm, HR 50, BP 108/46 WBC 7.0, BUN/Cr 47/2.0 UA: +3 protein/ +2 blood, + 3Leuk, large bacteria. Blood and urine cultures sent to lab Decision made to admit patient for change in IV abx regimen. Patient started on Zosyn and when information about outpt culture data and most recent abx administration obtained, primary team may alter care plan accordingly. History Source: Family Member () Limitations to Obtaining History: Dementia, Poor Historian - Past Medical History MACHINE TECH: Yes: Dementia, Other (hydrocephalus) Cardiovascular: Yes: CAD, HTN, Hyperlipdemia Renal/: Yes: Renal Inusuff, UTI, Other (Polycystic kidney disease) Rheumatology: Yes: Gout - Past Surgical History Past Surgical History: Yes: CABG Additional Past Surgical History: BEATER MACHINE OPERATOR shunt prostate seed implantation - Advance Directives Advance Directives: Yes: Health Care Proxy (Son: Joel Timmons [phone]) - Smoking History Smoking history: Former smoker Have you smoked in the past 12 months: No Aproximately how many cigarettes per day: 20 (1PPD x 10yrs) If you are a former smoker, when did you quit?: 1966 - Alcohol/Substance Use Hx Alcohol Use: No History of Substance Use: reports: None - Social History Usual Living Arrangement: Yes: With Spouse ADL: Support Services (TUNGSTEN TENDER 10hrs/day x 5days) History of Recent Travel: No Home Medications - Allergies Allergies/Adverse Reactions: Allergies Allergy/AdvReac Type Severity Reaction Status Date / Time No Known Allergies Allergy Verified 08/05/18 13:02 - Home Medications Home Medications: Ambulatory Orders Aspirin [ASA -] 81 mg PO DAILY 04/05/17 Escitalopram Oxalate [Lexapro -] 10 mg PO DAILY 04/05/17 hydrALAZINE HCL [Apresoline -] 10 mg PO BID 04/05/17 Rosuvastatin [Crestor -] 20 mg PO HS tablet 04/15/17 Tamsulosin HCl [Flomax -] 0.4 mg PO DAILY@0830 cap.er.24h 04/15/17 Memantine HCl [Namenda -] 10 mg PO BID 06/18/17 Mirabegron [Myrbetriq] 25 mg PO DAILY 06/18/17 Acetaminophen [Tylenol .Regular Strength -] 650 mg PO Q6H PRN tablet 09/17/17 Nebivolol [Bystolic -] 5 mg PO DAILY tab 09/17/17 Olanzapine [Zyprexa -] 2.5 mg PO HS 08/05/18 Family Disease History - Family Disease History Family Disease History: Other: Father ( (93) REnal disease), Mother ( (92) natural causes), Brother ( (79) stomach cancer), Sister ( (85) lung cancer) Other Family History: Brother renal disease. strong fmhx of HTN and DMII Review of Systems - Review of Systems Constitutional: reports: Lethargy, Loss of Appetite, Malaise Eyes: reports: No Symptoms HENT: reports: No Symptoms Neck: reports: No Symptoms Cardiovascular: reports: No Symptoms Respiratory: reports: No Symptoms Gastrointestinal: reports: No Symptoms Genitourinary: reports: Hematuria, Incontinence Breasts: reports: No Symptoms Reported Musculoskeletal: reports: No Symptoms Integumentary: reports: No Symptoms Neurological: reports: Weakness Endocrine: reports: No Symptoms Hematology/Lymphatic: reports: No Symptoms Psychiatric: reports: Depression, Hallucinations (pt sundowns), Other (dementia) Physical Examination Vital Signs: Vital Signs Temperature 97.8 F 08/05/18 13:04 Pulse Rate 50 L 08/05/18 17:00 Respiratory Rate 18 08/05/18 17:00 Blood Pressure 166/53 L 08/05/18 17:00 O2 Sat by Pulse Oximetry (%) 97 08/05/18 17:00 Constitutional: Yes: No Distress, Calm Eyes: Yes: Conjunctiva Clear, PERRL HENT: Yes: Atraumatic, Normocephalic Neck: Yes: Supple, Trachea Midline Cardiovascular: Yes: Regular Rate and Rhythm Respiratory: Yes: Regular, Diminished Gastrointestinal: Yes: Soft, Distention, Hyperactive Bowel Sounds ...Rectal Exam: Yes: Deferred Renal/: Yes: Incontinence Breast(s): Yes: WNL Musculoskeletal: Yes: Joint Stiffness, Muscle Weakness Edema: No Peripheral Pulses WNL: Yes Peripheral Pulses: Left Radial: 2+, Right Radial: 2+, Left Doralis Pedis: 2+, Right Dorsalis Pedis: 2+ Integumentary: Yes: WNL Neurological: Yes: Alert, Oriented, Unsteady Gait ...Motor Strength: WNL Psychiatric: Yes: Alert, Oriented Labs: CBC, BMP 08/05/18 14:33 08/05/18 14:33 Imaging - Results Chest X-ray: Pending (CXR 08/05/2018) Problem List - Problems (1) UTI (urinary tract infection) Assessment/Plan: f/u urine and blood cultures attempts should be made to obtain outpt urine culture data and specifics on abx administration trend WBC and fever curve zosyn TID ID consult placed to guide in management Code(s): N39.0 - URINARY TRACT INFECTION, SITE NOT SPECIFIED (2) DVT prophylaxis Assessment/Plan: heparin SC TID Code(s): TSW4096 - (3) Dementia Assessment/Plan: namenda 10mg qhs frequent reorientation and reassurance Zyprexa 2.5mg qhs fall precautions Code(s): F03.90 - UNSPECIFIED DEMENTIA WITHOUT BEHAVIORAL DISTURBANCE (4) Hypertension Assessment/Plan: bystolic 5mg daily (hold for HR <55bpm) Hydralazine 10mg BID Code(s): I10 - ESSENTIAL (PRIMARY) HYPERTENSION Qualifiers: (5) Renal insufficiency Assessment/Plan: monitor urine outpt trend serum cr and electrolytes gentle IV hydration w/ LR at 42ml/hr Code(s): N28.9 - DISORDER OF KIDNEY AND URETER, UNSPECIFIED (6) Depression Assessment/Plan: continue lexapro 10mg daily Code(s): F32.9 - MAJOR DEPRESSIVE DISORDER, SINGLE EPISODE, UNSPECIFIED (7) Coronary artery disease Assessment/Plan: crestor 20mg qhs ASA 81mg daily Code(s): I25.10 - ATHSCL HEART DISEASE OF [place] CORONARY ARTERY W/O ANG PCTRS (8) Prostate cancer Code(s): C61 - MALIGNANT NEOPLASM OF PROSTATE (9) BPH (benign prostatic hyperplasia) Assessment/Plan: continue flomax Code(s): N40.0 - BENIGN PROSTATIC HYPERPLASIA WITHOUT LOWER URINRY TRACT SYMP Assessment/Plan bowel regimen with senna and colace Tylenol PRN pain or fever Code status: full Visit type - Emergency Visit Emergency Visit: Yes ED Registration Date: 08/05/18 Care time: The patient presented to the Emergency Department on the above date and was hospitalized for further evaluation of their emergent condition. - New Patient This patient is new to me today: Yes Date on this admission: 08/05/18 - Critical Care Critical Care patient: No
[2018-08-05] MEDS ORDERED: LACTATED RINGERS SOLUTION 1,000 ML/1,000 ML INFUS.BAG IV SCH (20:00)
[2018-08-05 20:31] VITALS: BMI 30.8
[2018-08-05] MEDS: OLANZapine 5 MG TABLET PO SCH (22:15)
[2018-08-05] MEDS: hydrALAZINE HCL 10 MG TABLET PO SCH ×2 (22:18)
[2018-08-05] MEDS: MEMANTINE HCL 5 MG TABLET (UD) PO SCH (22:18)
[2018-08-05] MEDS: ROSUVASTATIN CA 20 MG TABLET (FP) PO SCH (22:19)
[2018-08-05] MEDS: HEPARIN NA (PORCINE) 5,000 UNITS/ML 1ML VIAL SQ SCH (22:19)
[2018-08-06] MEDS: HEPARIN NA (PORCINE) 5,000 UNITS/ML 1ML VIAL SQ SCH ×3 (06:05→22:29)
[2018-08-06 07:44] LABS: BASO % 0.8 % (0-2.0); EOS % 4.7 % (0-4.5); HEMATOCRIT 40.1 % (35.4-49); HEMOGLOBIN 12.7 GM/dL (11.7-16.9); LYMPH % 32.5 % (8-40); MCH 24.8 pg (25.7-33.7); MCHC 31.5 g/dl (32.0-35.9); MEAN CELL VOLUME 78.7 fl (80-96); MONO % 8.2 % (3.8-10.2); NEUT % 53.8 % (42.8-82.8); PLATELET COUNT 162 K/MM3 (134-434); RDW 14.1 % (11.9-15.9)
[2018-08-06 08:02] LABS: ALBUMIN 3.3 g/dl (3.4-5.0); BILIRUBIN,TOTAL 0.5 mg/dL (0.2-1); CALCIUM 8.8 mg/dL (8.5-10.1); CREATININE 1.8 mg/dL (0.55-1.3); MAGNESIUM 2.3 mg/dL (1.8-2.4); N-TERMINAL BNP 1407.8 pg/ml (5-450); PHOSPHOROUS 4.1 mg/dL (2.5-4.9); POTASSIUM 4.6 mmol/L (3.5-5.1); TOT PROT 6.1 g/dl (6.4-8.2)
[2018-08-06 08:07] LABS: INR 0.97 (0.83-1.09); PROTHROMBIN TIME (PATIENT) 11.4 SEC (9.7-13.0)
[2018-08-06 08:10] LABS: ACTIVATED PTT 33.5 SECONDS (25.2-36.5)
[2018-08-06] MEDS ORDERED: DEXTROSE 5%-WATER - 50 ML IVPB ONE ×2 (08:30→16:44)
[2018-08-06] MEDS ORDERED: PIPERACILLIN/TAZOBACTAM 3.375 GM VIAL IVPB ONE ×2 (08:30→16:44)
[2018-08-06] MEDS: TAMSULOSIN HCL 0.4 MG CAP PO SCH (08:35)
[2018-08-06] MEDS: PIPERACILLIN/TAZOB 3.375 GM 3.375 GM in DEXTROSE 5%-WATER - 50 ML IVPB SCH ×6 (08:37→20:52)
[2018-08-06] MEDS ORDERED: NEBIVOLOL 5 MG TABLET (FP) PO SCH (10:00)
[2018-08-06] MEDS ORDERED: PATIENT'S OWN MEDICATION (NON-FORMULARY) (Mirabegron [Myrbetriq] 25 MG) PO SCH (10:00)
[2018-08-06] MEDS ORDERED: PT OWN MED DRAWER 7, Y5N ONE (10:19)
[2018-08-06] MEDS: ESCITALOPRAM OXALATE 10 MG TABLET (FP) PO SCH (10:22)
[2018-08-06] MEDS: MEMANTINE HCL 5 MG TABLET (UD) PO SCH ×2 (10:22→22:30)
[2018-08-06] MEDS: ASPIRIN 81 MG CHEWABLE TABLETS PO SCH (10:22)
[2018-08-06] MEDS: hydrALAZINE HCL 10 MG TABLET PO SCH ×2 (10:22→22:29)
[2018-08-06] MEDS: PANTOPRAZOLE 20 MG TABLET (FP) PO SCH (10:22)
--- NOTE | 2018-08-06 12:03 | CON.CARD ---
Consult Consult Specialty:: Cardiology Referred by:: Dr. 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 Ortiz on 04/13/17, prostate cancer s/p seed implantation admitted with generalized fatigue, decreased appettite, hematuria. Pt was treated for UTI with Abx as outpatient. Of note pt follows with ios software engineer Dr. Star Dean at [facility] and states that his Bystolic was stopped approximately 6 months ago due to bradycardia. Noted to be bradycardic on admission ECG 48bpm with HR's in 50s during admission thus far. pt denies any chest pain, sob, palpitations. no lightheadedness, dizziness, syncope or near syncope. No pnd, orthopnea, or LE edema. 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: Dementia, Other (hydrocephalus) Cardio/Vascular: Yes: CAD, HTN, Hyperlipdemia Renal/: Yes: Renal Inusuff, UTI, Other (Polycystic kidney disease) Rheumatology: Yes: Gout - Past Surgical History Past Surgical History: Yes: CABG - Alcohol/Substance Use Hx Alcohol Use: No History of Substance Use: reports: None - Smoking History Smoking history: Former smoker Have you smoked in the past 12 months: No Aproximately how many cigarettes per day: 20 (1PPD x 10yrs) If you are a former smoker, when did you quit?: 1966 - Social History Usual Living Arrangement: With Spouse 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) History of Recent Travel: No Home Medications - Allergies Allergies/Adverse Reactions: Allergies Allergy/AdvReac Type Severity Reaction Status Date / Time No Known Allergies Allergy Verified 08/05/18 13:02 - Home Medications Home Medications: Ambulatory Orders Aspirin [ASA -] 81 mg PO DAILY 04/05/17 Escitalopram Oxalate [Lexapro -] 10 mg PO DAILY 04/05/17 hydrALAZINE HCL [Apresoline -] 10 mg PO BID 04/05/17 Rosuvastatin [Crestor -] 20 mg PO HS tablet 04/15/17 Tamsulosin HCl [Flomax -] 0.4 mg PO DAILY@0830 cap.er.24h 04/15/17 Memantine HCl [Namenda -] 10 mg PO BID 06/18/17 Mirabegron [Myrbetriq] 25 mg PO DAILY 06/18/17 Acetaminophen [Tylenol .Regular Strength -] 650 mg PO Q6H PRN tablet 09/17/17 Nebivolol [Bystolic -] 5 mg PO DAILY tab 09/17/17 Olanzapine [Zyprexa -] 2.5 mg PO HS 08/05/18 Family Disease History - Family Disease History Family Disease History: Other: Father ( (93) REnal disease), Mother ( (92) natural causes), Brother ( (79) stomach cancer), Sister ( (85) lung cancer) Other Family History: Brother renal disease. strong fmhx of HTN and DMII Review of Systems - Review of Systems Constitutional: reports: Loss of Appetite, Malaise, Weakness. denies: No Symptoms, Chills, Diaphoresis, Fever, Lethargy, Night Sweats, Unintentional Wgt. Loss, Other Eyes: denies: No Symptoms, Blind Spots, Blurred Vision, Double Vision, Eye Pain , Floaters, Photophobia, Recent Change in Vision, Other HENT: denies: No Symptoms, Difficult Swallowing, Ear Discharge, Ear Pain, Epistaxis, Gingival Bleeding, Hearing Loss, Mouth Swelling, Nasal Congestion, Ocular Prosthesis, Throat Pain, Toothache, Ringing in Ears, Other Neck: denies: No Symptoms, Decreased ROM, Lumps, Pain on Movement, Stiffness, Swollen Glands, Tenderness, Other Cardiovascular: denies: No Symptoms, Chest Pain, Edema, Palpitations, Shortness of Breath, Other Respiratory: denies: No Symptoms, Cough, Exercise Intolerance, Hemoptysis, Orthopnea, PND, Snoring, SOB, SOB on Exertion, Wheezing, Other Gastrointestinal: denies: No Symptoms, Abdominal Pain, Bloating, Constipation, Diarrhea, Dysphagia, Indigestion, Melena, Nausea, Rectal Bleeding, Vomiting, Vomiting Blood, Other Genitourinary: reports: Hematuria. denies: No Symptoms, Burning, Discharge, Dysuria, Flank Pain, Frequency, Incontinence, Lesions, Menses, Pain, Testicular Mass, Testicular Pain, Testicular Swelling, Urgency, Vaginal Bleeding, Other Breasts: denies: No Symptoms Reported, See HPI, Breast Implants, Discharge from Nipple, Lumps, Pain, Skin Changes, Other Musculoskeletal: denies: No Symptoms, Back Pain, Crepitus, Decreased ROM, Extremity Pain, Joint Pain, Joint Swelling, Muscle Pain, Muscle Cramps, Muscle Weakness, Other Integumentary: denies: No Symptoms, Blister, Bruising, Change in Color, Eczema, Erythema, Incision, Lesions, Lump, Pallor, Pruritis, Rash, Wound, Other Neurological: denies: No Symptoms, Change in LOC, Change in Speech, Confusion, Dizziness, Headache, Incoordination, Numbness, Parasthesia, Pre-Existing Deficit , Seizure, Syncope, Tremors, Unsteady Gait, Weakness, Other Endocrine: denies: No Symptoms, Excessive Sweating, Flushing, Increased Hunger, Increased Thirst, Intolerance to Cold, Intolerance to Heat, Unexplained Weight Gain, Unexplained Weight Loss, Other Hematology/Lymphatic: denies: No Symptoms, Easily Bruised, Excessive Bleeding, Swollen Glands, Other Psychiatric: denies: No Symptoms, Altered Sleep Pattern, Anxiety, Depression, Hallucinations, Panic, Paranoia, Suicidal, Other - Risk Factors Known Risk Factors: Yes: Age, Hypercholesterolemia, Physical Inactivity, Prior TN /Emb Stroke Vital Signs: Vital Signs Temperature 98 F 08/06/18 06:00 Pulse Rate 50 L 08/06/18 06:00 Respiratory Rate 18 08/06/18 06:00 Blood Pressure 140/58 L 08/06/18 06:00 O2 Sat by Pulse Oximetry (%) 97 08/05/18 19:48 Constitutional: Yes: No Distress, Calm Eyes: Yes: Conjunctiva Clear, EOM Intact HENT: Yes: Atraumatic, Normocephalic Neck: Yes: Supple, Trachea Midline Respiratory: Yes: Regular, CTA Bilaterally. No: Rales, Rhonchi, SOB, Wheezes Gastrointestinal: Yes: Normal Bowel Sounds, Soft Cardiovascular: Yes: Bradycardia. No: Regular Rate and Rhythm, Tachycardia, Pulse Irregular, Gallop, Rub, Varicosities JVD: No Carotid Bruit: No PMI: Non-Displaced Heart Sounds: Yes: S1, S2. No: Split S2, S3, S4, Clicks, Gallop, Rub, Bruit Murmur: No: Systolic Murmur, Diastolic Murmur Extremities: Yes: WNL Edema: No Peripheral Pulses WNL: Yes Peripheral Pulses: 2+ Left Doralis Pedis, 2+ Right Dorsalis Pedis Neurological: Yes: Alert, Oriented Psychiatric: Yes: Alert, Oriented - Other Data Labs, Other Data: CBC, BMP 08/06/18 06:00 08/06/18 06:00 INR, PTT INR 0.97 (0.83-1.09) 08/06/18 07:50 Troponin, BNP 08/06/18 06:00 B-Natriuretic Peptide 1407.8 H Troponin, BNP 08/06/18 06:00 B-Natriuretic Peptide 1407.8 H ekg-sinus bradycardia 48bpm. rbbb, inferior infarct. 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 Ortiz on 04/13/17, prostate cancer s/p seed implantation admitted with generalized fatigue, decreased appettite, hematuria. Pt was treated for UTI with Abx as outpatient. Of note pt follows with ios software engineer Dr. Star Dean at [facility] and states that his Bystolic was stopped approximately 6 months ago due to bradycardia. Noted to be bradycardic on admission ECG 48bpm with HR's in 50s during admission thus far. pt denies any chest pain, sob, palpitations. no lightheadedness, dizziness, syncope or near syncope. No pnd, orthopnea, or LE edema. Bradycardia-sinus, history of sinus bradycardia -unlikely responsible for his current symptoms, HR has been on average 50bpm since admission, unlikely to cause his current symptoms -bystolic was stopped 6mo ago by his ios software engineer for this -dcd bystolic -ensure full TFTs wnl -ensure K+ stays wnl -does not require additional cardiac work up at this time -no indication for PPM at this time -can have further work up as outpatient Please call with any additional questions.
--- NOTE | 2018-08-06 12:09 | EKG ---
Test Reason : Blood Pressure : / mmHG Vent. Rate : 048 BPM Atrial Rate : 048 BPM P-R Int : 156 ms QRS Dur : 148 ms QT Int : 482 ms P-R-T Axes : 005 -04 016 degrees QTc Int : 430 ms SINUS BRADYCARDIA RIGHT BUNDLE BRANCH BLOCK POSSIBLE INFERIOR INFARCT (CITED ON OR BEFORE 02-NOV-2017) ABNORMAL ECG WHEN COMPARED WITH ECG OF 23-MAR-2018 23:55, LEFT ANTERIOR FASCICULAR BLOCK IS NO LONGER PRESENT T WAVE INVERSION LESS EVIDENT IN INFERIOR LEADS Confirmed by MD Adan, Darren ([id number]) on 08/06/2018 12:09:29 PM Referred By: Confirmed By:Darren Arellano MD
--- NOTE | 2018-08-06 13:40 | CONSULT ---
Consult Consult Specialty:: Nephrology Reason for Consultation:: CKD - History of Present Illness Chief Complaint: hematuria and weakness History of Present Illness: Pt is an 87 year old male with pmhx of CKD, prostate ca, recurrent UTI, HTN, HLD , dementia, PKD, DM and cad who presented to the ER with generalized weakness and fatigue. He had been treated with IV abx at home for UTI. I was called to evaluate him for elevated weed inspector. He denies fevers or chills. His is at bedside and assisted with history. He did have hematuria. He denies nausea or vomiting. I was called to evaluate him for elevated creatinine. 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, Other (hydrocephalus) Cardio/Vascular: Yes: CAD, HTN, Hyperlipdemia Renal/: Yes: Renal Inusuff, UTI, Other (Polycystic kidney disease) Rheumatology: Yes: Gout - Past Surgical History Past Surgical History: Yes: CABG - Alcohol/Substance Use Hx Alcohol Use: No History of Substance Use: reports: None - Smoking History Smoking history: Former smoker Have you smoked in the past 12 months: No Aproximately how many cigarettes per day: 20 (1PPD x 10yrs) If you are a former smoker, when did you quit?: 1966 - Social History Usual Living Arrangement: With Spouse 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) History of Recent Travel: No Home Medications - Allergies Allergies/Adverse Reactions: Allergies Allergy/AdvReac Type Severity Reaction Status Date / Time No Known Allergies Allergy Verified 08/05/18 13:02 - Home Medications Home Medications: Ambulatory Orders Aspirin [ASA -] 81 mg PO DAILY 04/05/17 Escitalopram Oxalate [Lexapro -] 10 mg PO DAILY 04/05/17 hydrALAZINE HCL [Apresoline -] 10 mg PO BID 04/05/17 Rosuvastatin [Crestor -] 20 mg PO HS tablet 04/15/17 Tamsulosin HCl [Flomax -] 0.4 mg PO DAILY@0830 cap.er.24h 04/15/17 Memantine HCl [Namenda -] 10 mg PO BID 06/18/17 Mirabegron [Myrbetriq] 25 mg PO DAILY 06/18/17 Acetaminophen [Tylenol .Regular Strength -] 650 mg PO Q6H PRN tablet 09/17/17 Nebivolol [Bystolic -] 5 mg PO DAILY tab 09/17/17 Olanzapine [Zyprexa -] 2.5 mg PO HS 08/05/18 Family Disease History - Family Disease History Family Disease History: Other: Father ( (93) REnal disease), Mother ( (92) natural causes), Brother ( (79) stomach cancer), Sister ( (85) lung cancer) Other Family History: Brother renal disease. strong fmhx of HTN and DMII Review of Systems - Review of Systems Constitutional: reports: Malaise. denies: Chills Eyes: reports: No Symptoms HENT: reports: No Symptoms Neck: reports: No Symptoms Cardiovascular: reports: No Symptoms Respiratory: reports: No Symptoms Gastrointestinal: reports: No Symptoms Genitourinary: reports: Hematuria Musculoskeletal: reports: No Symptoms Integumentary: reports: No Symptoms Neurological: reports: No Symptoms Endocrine: reports: No Symptoms Psychiatric: reports: No Symptoms Physical Exam Vital Signs: Vital Signs Temperature 98 F 08/06/18 06:00 Pulse Rate 50 L 08/06/18 06:00 Respiratory Rate 18 08/06/18 10:00 Blood Pressure 140/58 L 08/06/18 06:00 O2 Sat by Pulse Oximetry (%) 97 08/06/18 10:00 Constitutional: Yes: Calm Eyes: Yes: Conjunctiva Clear HENT: Yes: Atraumatic Cardiovascular: Yes: S1, S2 Respiratory: Yes: CTA Bilaterally Gastrointestinal: Yes: Soft Renal/: Yes: WNL Musculoskeletal: Yes: WNL Edema: No Neurological: Yes: Oriented Labs: CBC, BMP 08/06/18 06:00 08/06/18 06:00 Microbiology Laboratory Tests 03/26/18 03/28/18 08/05/18 06:00 10:15 14:33 Hgb 12.8 Sodium Potassium Creatinine 2.2 H 2.0 H Urine Protein Urine Blood Ur Leukocyte Esterase 08/05/18 08/05/18 08/06/18 14:33 16:17 06:00 Hgb 12.7 Sodium Potassium Creatinine 2.0 H Urine Protein 3+ H Urine Blood 2+ H Ur Leukocyte Esterase 3+ H 08/06/18 06:00 Hgb Sodium 141 Potassium 4.6 Creatinine 1.8 H Urine Protein Urine Blood Ur Leukocyte Esterase Imaging - Results Chest X-ray: Report Reviewed Problem List - Problems (1) Coronary artery disease Code(s): I25.10 - ATHSCL HEART DISEASE OF [place] CORONARY ARTERY W/O ANG PCTRS (2) Depression Code(s): F32.9 - MAJOR DEPRESSIVE DISORDER, SINGLE EPISODE, UNSPECIFIED (3) UTI (urinary tract infection) Code(s): N39.0 - URINARY TRACT INFECTION, SITE NOT SPECIFIED (4) Renal insufficiency Code(s): N28.9 - DISORDER OF KIDNEY AND URETER, UNSPECIFIED Assessment/Plan Current Medications Generic Name Dose Route Start Last Admin Trade Name Freq PRN Reason Stop Dose Admin Acetaminophen 650 mg 08/05/18 17:45 Tylenol - PO Q6H PRN PAIN LEVEL 1-5 Aspirin 81 mg 08/06/18 10:00 08/06/18 10:22 Asa - PO 81 mg DAILY MITCH Administration Docusate Sodium 100 mg 08/05/18 17:48 Colace - PO Q12H PRN CONSTIPATION Escitalopram Oxalate 10 mg 08/06/18 10:00 08/06/18 10:22 Lexapro - PO 10 mg DAILY MITCH Administration Heparin Sodium (Porcine) 5,000 unit 08/05/18 22:00 08/06/18 06:05 Heparin - SQ 5,000 unit TID MITCH Administration Hydralazine HCl 10 mg 08/05/18 18:00 08/06/18 10:22 Apresoline - PO 10 mg BID MITCH Administration Piperacillin Sod/Tazobactam 50 mls @ 100 mls/hr 08/05/18 19:30 Sod 3.375 gm/ Dextrose IVPB Q8H-IV MITCH Protocol Piperacillin Sod/Tazobactam 50 mls @ 100 mls/hr 08/06/18 08:00 08/06/18 08:37 Sod 3.375 gm/ Dextrose IVPB 08/07/18 00:29 100 mls/hr Q8H MITCH Administration Protocol Lactated Ringer's 1,000 ml in 1,000 mls @ 42 mls/hr 08/05/18 20:00 08/05/18 22:15 Lactated Ringers Solution IV 42 mls/hr ASDIR MITCH Administration Memantine 10 mg 08/05/18 22:00 08/06/18 10:22 Namenda - PO 10 mg BID MITCH Administration Olanzapine 2.5 mg 08/05/18 22:00 08/05/18 22:15 Zyprexa - PO 2.5 mg HS MITCH Administration Pantoprazole Sodium 20 mg 08/06/18 10:00 08/06/18 10:22 Protonix - PO 20 mg DAILY MITCH Administration Rosuvastatin Calcium 20 mg 08/05/18 22:00 08/05/18 22:19 Crestor - PO 20 mg HS MITCH Administration Senna 2 tab 08/05/18 17:48 Senna - PO HS PRN CONSTIPATION Tamsulosin HCl 0.4 mg 08/06/18 08:30 08/06/18 08:35 Flomax - PO 0.4 mg DAILY@0830 MITCH Administration Impression 1. CKD 2. PKD 3. dizziness 4. HTN 5. weakness 6. loss of appetite 7. prostate cancer 8. dementia 9. 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 UTI Plan - renal function stable - follow cultures - avoid nsaids - cont abx - change fluid to 1/2 ns
[2018-08-06] MEDS: SODIUM CHLORIDE 0.45% 1,000 ML IV SCH (14:32)
--- NOTE | 2018-08-06 16:08 | PN ---
Progress Note, Physician Chief Complaint: UTI GARRISON History of Present Illness: Previous notes and events reviewed awake and alert NAD denies dysuria or hematuria - Current Medication List Current Medications: Active Medications Acetaminophen (Tylenol -) 650 mg PO Q6H PRN PRN Reason: PAIN LEVEL 1-5 Aspirin (Asa -) 81 mg PO DAILY [facility] Last Admin: 08/06/18 10:22 Dose: 81 mg Docusate Sodium (Colace -) 100 mg PO Q12H PRN PRN Reason: CONSTIPATION Escitalopram Oxalate (Lexapro -) 10 mg PO DAILY [facility] Last Admin: 08/06/18 10:22 Dose: 10 mg Heparin Sodium (Porcine) (Heparin -) 5,000 unit SQ TID [facility] Last Admin: 08/06/18 14:31 Dose: 5,000 unit Hydralazine HCl (Apresoline -) 10 mg PO BID [facility] Last Admin: 08/06/18 10:22 Dose: 10 mg Piperacillin Sod/Tazobactam (Sod 3.375 gm/ Dextrose) 50 mls @ 100 mls/hr IVPB Q8H-IV [facility]; Protocol Piperacillin Sod/Tazobactam (Sod 3.375 gm/ Dextrose) 50 mls @ 100 mls/hr IVPB Q8H [facility]; Protocol Stop: 08/07/18 00:29 Last Admin: 08/06/18 08:37 Dose: 100 mls/hr Sodium Chloride (1/2 Normal Saline) 1,000 mls @ 75 mls/hr IV ASDIR [facility] Last Admin: 08/06/18 14:32 Dose: 75 mls/hr Memantine (Namenda -) 10 mg PO BID [facility] Last Admin: 08/06/18 10:22 Dose: 10 mg Olanzapine (Zyprexa -) 2.5 mg PO HS [facility] Last Admin: 08/05/18 22:15 Dose: 2.5 mg Pantoprazole Sodium (Protonix -) 20 mg PO DAILY [facility] Last Admin: 08/06/18 10:22 Dose: 20 mg Rosuvastatin Calcium (Crestor -) 20 mg PO HS [facility] Last Admin: 08/05/18 22:19 Dose: 20 mg Senna (Senna -) 2 tab PO HS PRN PRN Reason: CONSTIPATION Tamsulosin HCl (Flomax -) 0.4 mg PO DAILY@0830 [facility] Last Admin: 08/06/18 08:35 Dose: 0.4 mg - Objective Vital Signs: Vital Signs Temperature 98.4 F 08/06/18 13:42 Pulse Rate 57 L 08/06/18 13:42 Respiratory Rate 18 08/06/18 13:42 Blood Pressure 135/74 08/06/18 13:42 O2 Sat by Pulse Oximetry (%) 97 08/06/18 10:00 Constitutional: Yes: No Distress, Calm Eyes: Yes: Conjunctiva Clear HENT: Yes: Atraumatic Cardiovascular: Yes: Regular Rate and Rhythm Respiratory: Yes: Regular, CTA Bilaterally Gastrointestinal: Yes: Normal Bowel Sounds, Soft Musculoskeletal: Yes: Muscle Weakness Extremities: Yes: WNL Edema: No Neurological: Yes: Alert, Oriented Psychiatric: Yes: Alert, Oriented Labs: CBC, BMP 08/06/18 06:00 08/06/18 06:00 INR, PTT INR 0.97 (0.83-1.09) 08/06/18 07:50 Microbiology 08/05/18 17:30 Blood - Peripheral Venous Blood Culture - Preliminary NO GROWTH OBTAINED AFTER 24 HOURS, INCUBATION TO CONTINUE FOR 4 DAYS. Problem List - Problems (1) BPH (benign prostatic hyperplasia) Assessment/Plan: -Tamsulosin Code(s): N40.0 - BENIGN PROSTATIC HYPERPLASIA WITHOUT LOWER URINRY TRACT SYMP (2) UTI (urinary tract infection) Assessment/Plan: -ID on board -IV Zosyn -afebrile -no leukocytosis -UC pending -UA 3+ leukocyte esterase, 2+ blood, 3+ protein Code(s): N39.0 - URINARY TRACT INFECTION, SITE NOT SPECIFIED (3) CKD (chronic kidney disease) Assessment/Plan: -BUN/Cr 42/1.8 -renal on board -monitor renal function daily Code(s): N18.9 - CHRONIC KIDNEY DISEASE, UNSPECIFIED (4) Hypertension Assessment/Plan: -continue Hydralazine -low Na diet Code(s): I10 - ESSENTIAL (PRIMARY) HYPERTENSION Qualifiers: (5) Coronary artery disease Assessment/Plan: -continue Aspirin and Rosuvastatin Code(s): I25.10 - ATHSCL HEART DISEASE OF [place] CORONARY ARTERY W/O ANG PCTRS (6) Bradycardia Assessment/Plan: -cardiology on board -monitor HR Code(s): R00.1 - BRADYCARDIA, UNSPECIFIED Assessment/Plan see problem list dvt ppx
--- NOTE | 2018-08-06 16:32 | PN ---
Progress Note (short form) - Note Progress Note: ID consult dictated imp/reccd lethargy, hematuria pyuria NPH not sure what iv antibiotics he got - 7 days finished around july 28 still thinks he's a bit sleepy although he is quite alert now still has hematuria f/u cultures continue zosyn for now Problem List - Problems (1) Altered mental status Code(s): R41.82 - ALTERED MENTAL STATUS, UNSPECIFIED (2) Hematuria Code(s): R31.9 - HEMATURIA, UNSPECIFIED (3) UTI (urinary tract infection) Code(s): N39.0 - URINARY TRACT INFECTION, SITE NOT SPECIFIED (4) NPH (normal pressure hydrocephalus) Code(s): G91.2 - (IDIOPATHIC) NORMAL PRESSURE HYDROCEPHALUS
--- NOTE | 2018-08-06 17:54 | CONS ---
DATE OF CONSULTATION: DATE OF DICTATION: 08/06/2018 INFECTIOUS DISEASE CONSULTATION HISTORY OF PRESENT ILLNESS: This is an 87-year-old man with a history of normal pressure hydrocephalus, CHAPERON shunt. He has a solitary kidney. He presented to the ER for continued somnolence, and hematuria, around the time of , he had these symptoms. He was visited at home by his nephew, who is a physician, and he was given IV antibiotics once a day for 7 days, which we think he completed in early July. He has not improved since that time with persistent hematuria and persistent lethargy. So his brought him to the ER. There is no history of any fevers or chills. There is no nausea or vomiting. He is currently awake and alert. He is not lethargic, though the says he very easily falls asleep. PAST MEDICAL HISTORY: Notable for dementia, hydrocephalus, coronary artery disease, hypertension, hyperlipidemia, renal insufficiency, UTI, congenital one kidney. Has a history of gout. Has a CHAPERON shunt. Prostate cancer. Prostate seed implantation . SOCIAL HISTORY: He lives with his . He is a former smoker. He quit in 1966. 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 There is no history of any recent travel. He is originally from [place]. ALLERGIES: No known drug allergies. MEDICATION: His medications at home include aspirin, Lexapro, Apresoline, rosuvastatin, tamsulosin, memantine, , Bystolic and Zyprexa. FAMILY HISTORY: Notable for renal disease in his father, stomach cancer in his brother, lung cancer in his sister. He also has a brother who has kidney disease, and there is hypertension and diabetes in the family. REVIEW OF SYSTEMS: Per the , patient has no complaints whatsoever and denies any positive findings. The , on the other hand, says he still becomes easily drowsy, and that he is still not back to his baseline. PHYSICAL EXAMINATION: GENERAL: He is awake and alert. VITAL SIGNS: He has had no fever. Temperature 98.4, pulse 57, blood pressure 135/74, respiratory rate 18, saturating 97% on room air. HEENT: Normocephalic. Eyes are anicteric. NECK: Supple. LUNGS: Clear to auscultation. HEART: Regular rate and rhythm. ABDOMEN: Soft, nontender. EXTREMITIES: Without edema. LABORATORY: Notable for white count of 7, hemoglobin 12.7, platelets of 162, INR is 0.9. BUN and creatinine are 42 and 1.8. Urinalysis has 3+ leukocytes with 2337 white cells and 2+ blood. He has a history of chronic hydronephrosis as well. IMPRESSION: In summary, this is an 87-year-old man with lethargy, hematuria, pyuria in the setting of non-pressure hydrocephalus. He is status post intravenous antibiotics for 7 days, finished around July 28. I would follow up his cultures and continue Zosyn for now. His renal function has returned to its usual baseline as well. Further recommendations to follow. I discussed patient at length with his at the bedside. MARTIN YUN M.D. [id number]
[2018-08-06] MEDS: ROSUVASTATIN CA 20 MG TABLET (FP) PO SCH (22:29)
[2018-08-06] MEDS: OLANZapine 5 MG TABLET PO SCH (22:31)
[2018-08-07] MEDS ORDERED: DEXTROSE 5%-WATER - 50 ML IVPB ONE ×3 (02:14→18:01)
[2018-08-07] MEDS ORDERED: PIPERACILLIN/TAZOBACTAM 3.375 GM VIAL IVPB ONE ×3 (02:14→17:59)
[2018-08-07] MEDS: PIPERACILLIN/TAZOB 3.375 GM 3.375 GM in DEXTROSE 5%-WATER - 50 ML IVPB SCH ×3 (02:25→18:08)
[2018-08-07] MEDS: SODIUM CHLORIDE 0.45% 1,000 ML IV SCH ×2 (02:29→15:52)
[2018-08-07] MEDS: HEPARIN NA (PORCINE) 5,000 UNITS/ML 1ML VIAL SQ SCH ×3 (05:45→21:44)
[2018-08-07 07:10] LABS: HEMATOCRIT 39.3 % (35.4-49); HEMOGLOBIN 12.3 GM/dL (11.7-16.9); MCH 24.6 pg (25.7-33.7); MCHC 31.3 g/dl (32.0-35.9); MEAN CELL VOLUME 78.5 fl (80-96); PLATELET COUNT 154 K/MM3 (134-434); RBC 5.01 M/mm3 (4.00-5.60); RDW 13.9 % (11.9-15.9); WHITE BLOOD COUNT 7.6 K/mm3 (4.0-10.0)
[2018-08-07 07:37] LABS: CALCIUM 8.7 mg/dL (8.5-10.1); POTASSIUM 4.6 mmol/L (3.5-5.1)
[2018-08-07] MEDS ORDERED: NEBIVOLOL 2.5 MG TABLET (FP) PO SCH (10:00)
[2018-08-07] MEDS: ASPIRIN 81 MG CHEWABLE TABLETS PO SCH (10:12)
[2018-08-07] MEDS: PANTOPRAZOLE 20 MG TABLET (FP) PO SCH (10:12)
[2018-08-07] MEDS: hydrALAZINE HCL 10 MG TABLET PO SCH ×2 (10:12→21:43)
[2018-08-07] MEDS: TAMSULOSIN HCL 0.4 MG CAP PO SCH (10:13)
[2018-08-07] MEDS: ESCITALOPRAM OXALATE 10 MG TABLET (FP) PO SCH (10:13)
[2018-08-07] MEDS: MEMANTINE HCL 5 MG TABLET (UD) PO SCH ×2 (10:13→21:43)
--- NOTE | 2018-08-07 11:57 | PN ---
Progress Note, Physician History of Present Illness: Pt seen and examined at bedside. He is awake and alert. He denies shortness of breath. - Current Medication List Current Medications: Active Medications Acetaminophen (Tylenol -) 650 mg PO Q6H PRN PRN Reason: PAIN LEVEL 1-5 Last Admin: 08/06/18 17:02 Dose: 650 mg Aspirin (Asa -) 81 mg PO DAILY [facility] Last Admin: 08/07/18 10:12 Dose: 81 mg Docusate Sodium (Colace -) 100 mg PO Q12H PRN PRN Reason: CONSTIPATION Escitalopram Oxalate (Lexapro -) 10 mg PO DAILY [facility] Last Admin: 08/07/18 10:13 Dose: 10 mg Heparin Sodium (Porcine) (Heparin -) 5,000 unit SQ TID [facility] Last Admin: 08/07/18 05:45 Dose: 5,000 unit Hydralazine HCl (Apresoline -) 10 mg PO BID [facility] Last Admin: 08/07/18 10:12 Dose: 10 mg Piperacillin Sod/Tazobactam (Sod 3.375 gm/ Dextrose) 50 mls @ 100 mls/hr IVPB Q8H-IV [facility]; Protocol Last Admin: 08/07/18 10:11 Dose: 100 mls/hr Sodium Chloride (1/2 Normal Saline) 1,000 mls @ 75 mls/hr IV ASDIR [facility] Last Admin: 08/07/18 02:29 Dose: 75 mls/hr Memantine (Namenda -) 10 mg PO BID [facility] Last Admin: 08/07/18 10:13 Dose: 10 mg Olanzapine (Zyprexa -) 2.5 mg PO HS [facility] Last Admin: 08/06/18 22:31 Dose: 2.5 mg Pantoprazole Sodium (Protonix -) 20 mg PO DAILY [facility] Last Admin: 08/07/18 10:12 Dose: 20 mg Rosuvastatin Calcium (Crestor -) 20 mg PO HS [facility] Last Admin: 08/06/18 22:29 Dose: 20 mg Senna (Senna -) 2 tab PO HS PRN PRN Reason: CONSTIPATION Tamsulosin HCl (Flomax -) 0.4 mg PO DAILY@0830 [facility] Last Admin: 08/07/18 10:13 Dose: 0.4 mg - Objective Vital Signs: Vital Signs Temperature 97.4 F L 08/07/18 06:00 Pulse Rate 47 L 08/07/18 06:00 Respiratory Rate 18 08/07/18 06:00 Blood Pressure 176/72 H 08/07/18 06:00 O2 Sat by Pulse Oximetry (%) 95 08/06/18 21:00 Constitutional: Yes: Calm Eyes: Yes: Conjunctiva Clear HENT: Yes: Atraumatic Neck: Yes: Supple Cardiovascular: Yes: S1, S2 Respiratory: Yes: CTA Bilaterally Gastrointestinal: Yes: Soft Genitourinary: Yes: WNL Musculoskeletal: Yes: WNL Edema: No Neurological: Yes: Oriented Labs: CBC, BMP 08/07/18 06:30 08/07/18 06:30 INR, PTT INR 0.97 (0.83-1.09) 08/06/18 07:50 Problem List - Problems (1) Coronary artery disease Code(s): I25.10 - ATHSCL HEART DISEASE OF [place] CORONARY ARTERY W/O ANG PCTRS (2) Depression Code(s): F32.9 - MAJOR DEPRESSIVE DISORDER, SINGLE EPISODE, UNSPECIFIED (3) UTI (urinary tract infection) Code(s): N39.0 - URINARY TRACT INFECTION, SITE NOT SPECIFIED (4) Renal insufficiency Code(s): N28.9 - DISORDER OF KIDNEY AND URETER, UNSPECIFIED Assessment/Plan Current Medications Generic Name Dose Route Start Last Admin Trade Name Freq PRN Reason Stop Dose Admin Acetaminophen 650 mg 08/05/18 17:45 08/06/18 17:02 Tylenol - PO 650 mg Q6H PRN Administration PAIN LEVEL 1-5 Aspirin 81 mg 08/06/18 10:00 08/07/18 10:12 Asa - PO 81 mg DAILY [facility] Administration Docusate Sodium 100 mg 08/05/18 17:48 Colace - PO Q12H PRN CONSTIPATION Escitalopram Oxalate 10 mg 08/06/18 10:00 08/07/18 10:13 Lexapro - PO 10 mg DAILY [facility] Administration Heparin Sodium (Porcine) 5,000 unit 08/05/18 22:00 08/07/18 05:45 Heparin - SQ 5,000 unit TID [facility] Administration Hydralazine HCl 10 mg 08/05/18 18:00 08/07/18 10:12 Apresoline - PO 10 mg BID [facility] Administration Piperacillin Sod/Tazobactam 50 mls @ 100 mls/hr 08/05/18 19:30 08/07/18 10:11 Sod 3.375 gm/ Dextrose IVPB 100 mls/hr Q8H-IV [facility] Administration Protocol Sodium Chloride 1,000 mls @ 75 mls/hr 08/06/18 13:45 08/07/18 02:29 1/2 Normal Saline IV 75 mls/hr ASDIR [facility] Administration Memantine 10 mg 08/05/18 22:00 08/07/18 10:13 Namenda - PO 10 mg BID [facility] Administration Olanzapine 2.5 mg 08/05/18 22:00 08/06/18 22:31 Zyprexa - PO 2.5 mg HS [facility] Administration Pantoprazole Sodium 20 mg 08/06/18 10:00 08/07/18 10:12 Protonix - PO 20 mg DAILY [facility] Administration Rosuvastatin Calcium 20 mg 08/05/18 22:00 08/06/18 22:29 Crestor - PO 20 mg HS [facility] Administration Senna 2 tab 08/05/18 17:48 Senna - PO HS PRN CONSTIPATION Tamsulosin HCl 0.4 mg 08/06/18 08:30 08/07/18 10:13 Flomax - PO 0.4 mg DAILY@0830 [facility] Administration Impression 1. CKD 2. PKD 3. dizziness 4. HTN 5. weakness 6. loss of appetite 7. prostate cancer 8. dementia 9. 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 UTI Plan - monitor renal function, he is close to baseline - can cont fluids for now - repeat labs in am - follow cultures - avoid nsaids - cont abx
--- NOTE | 2018-08-07 15:14 | PN ---
Progress Note, Physician Chief Complaint: UTI GARRISON History of Present Illness: Previous notes and events reviewed awake and alert NAD denies dysuria or hematuria up walking with PT - Current Medication List Current Medications: Active Medications Acetaminophen (Tylenol -) 650 mg PO Q6H PRN PRN Reason: PAIN LEVEL 1-5 Last Admin: 08/06/18 17:02 Dose: 650 mg Aspirin (Asa -) 81 mg PO DAILY [facility] Last Admin: 08/07/18 10:12 Dose: 81 mg Docusate Sodium (Colace -) 100 mg PO Q12H PRN PRN Reason: CONSTIPATION Escitalopram Oxalate (Lexapro -) 10 mg PO DAILY [facility] Last Admin: 08/07/18 10:13 Dose: 10 mg Heparin Sodium (Porcine) (Heparin -) 5,000 unit SQ TID [facility] Last Admin: 08/07/18 14:32 Dose: 5,000 unit Hydralazine HCl (Apresoline -) 10 mg PO BID [facility] Last Admin: 08/07/18 10:12 Dose: 10 mg Piperacillin Sod/Tazobactam (Sod 3.375 gm/ Dextrose) 50 mls @ 100 mls/hr IVPB Q8H-IV [facility]; Protocol Last Admin: 08/07/18 10:11 Dose: 100 mls/hr Sodium Chloride (1/2 Normal Saline) 1,000 mls @ 75 mls/hr IV ASDIR [facility] Last Admin: 08/07/18 02:29 Dose: 75 mls/hr Memantine (Namenda -) 10 mg PO BID [facility] Last Admin: 08/07/18 10:13 Dose: 10 mg Olanzapine (Zyprexa -) 2.5 mg PO HS [facility] Last Admin: 08/06/18 22:31 Dose: 2.5 mg Pantoprazole Sodium (Protonix -) 20 mg PO DAILY [facility] Last Admin: 08/07/18 10:12 Dose: 20 mg Rosuvastatin Calcium (Crestor -) 20 mg PO HS [facility] Last Admin: 08/06/18 22:29 Dose: 20 mg Senna (Senna -) 2 tab PO HS PRN PRN Reason: CONSTIPATION Tamsulosin HCl (Flomax -) 0.4 mg PO DAILY@0830 [facility] Last Admin: 08/07/18 10:13 Dose: 0.4 mg - Objective Vital Signs: Vital Signs Temperature 97.9 F 08/07/18 13:38 Pulse Rate 57 L 08/07/18 13:38 Respiratory Rate 18 08/07/18 13:38 Blood Pressure 167/77 08/07/18 13:38 O2 Sat by Pulse Oximetry (%) 94 L 08/07/18 09:00 Constitutional: Yes: No Distress, Calm Eyes: Yes: Conjunctiva Clear HENT: Yes: Atraumatic Cardiovascular: Yes: Regular Rate and Rhythm Respiratory: Yes: Regular, CTA Bilaterally Gastrointestinal: Yes: Normal Bowel Sounds, Soft Musculoskeletal: Yes: Back Pain (mid lower) Extremities: Yes: WNL Neurological: Yes: Alert, Oriented Psychiatric: Yes: Alert, Oriented Labs: CBC, BMP 08/07/18 06:30 08/07/18 06:30 INR, PTT INR 0.97 (0.83-1.09) 08/06/18 07:50 Microbiology 08/05/18 16:17 Urine - Urine Clean Catch Urine Culture - Preliminary Group D Strep Or Entero Coccus Pending Organism 08/06/18 06:05 Blood - Peripheral Venous Blood Culture - Preliminary NO GROWTH OBTAINED AFTER 24 HOURS, INCUBATION TO CONTINUE FOR 4 DAYS. 08/06/18 06:00 Blood - Peripheral Venous Blood Culture - Preliminary NO GROWTH OBTAINED AFTER 24 HOURS, INCUBATION TO CONTINUE FOR 4 DAYS. 08/05/18 17:00 Blood - Peripheral Venous Blood Culture - Preliminary NO GROWTH OBTAINED AFTER 24 HOURS, INCUBATION TO CONTINUE FOR 4 DAYS. 08/05/18 17:30 Blood - Peripheral Venous Blood Culture - Preliminary NO GROWTH OBTAINED AFTER 24 HOURS, INCUBATION TO CONTINUE FOR 4 DAYS. Problem List - Problems (1) BPH (benign prostatic hyperplasia) Assessment/Plan: -Tamsulosin Code(s): N40.0 - BENIGN PROSTATIC HYPERPLASIA WITHOUT LOWER URINRY TRACT SYMP (2) UTI (urinary tract infection) Assessment/Plan: -ID on board -IV Zosyn -afebrile -no leukocytosis -UC positive Group D Strep Enterococcous -UA 3+ leukocyte esterase, 2+ blood, 3+ protein Code(s): N39.0 - URINARY TRACT INFECTION, SITE NOT SPECIFIED (3) CKD (chronic kidney disease) Assessment/Plan: -BUN/Cr 40/2.0 -renal on board -monitor renal function daily Code(s): N18.9 - CHRONIC KIDNEY DISEASE, UNSPECIFIED (4) Hypertension Assessment/Plan: -continue Hydralazine -low Na diet Code(s): I10 - ESSENTIAL (PRIMARY) HYPERTENSION Qualifiers: (5) Coronary artery disease Assessment/Plan: -continue Aspirin and Rosuvastatin Code(s): I25.10 - ATHSCL HEART DISEASE OF [place] CORONARY ARTERY W/O ANG PCTRS (6) Bradycardia Assessment/Plan: -cardiology on board -monitor HR Code(s): R00.1 - BRADYCARDIA, UNSPECIFIED Assessment/Plan see problem list dvt ppx
[2018-08-07] MEDS: ROSUVASTATIN CA 20 MG TABLET (FP) PO SCH (21:43)
[2018-08-07] MEDS: OLANZapine 5 MG TABLET PO SCH (21:43)
[2018-08-08] MEDS ORDERED: DEXTROSE 5%-WATER - 50 ML IVPB ONE ×2 (02:26→09:45)
[2018-08-08] MEDS ORDERED: PIPERACILLIN/TAZOBACTAM 3.375 GM VIAL IVPB ONE ×2 (02:26→09:45)
[2018-08-08] MEDS: PIPERACILLIN/TAZOB 3.375 GM 3.375 GM in DEXTROSE 5%-WATER - 50 ML IVPB SCH ×2 (02:41→10:44)
[2018-08-08] MEDS: HEPARIN NA (PORCINE) 5,000 UNITS/ML 1ML VIAL SQ SCH ×3 (06:34→22:26)
[2018-08-08] MEDS: SODIUM CHLORIDE 0.45% 1,000 ML IV SCH (06:36)
[2018-08-08 07:45] LABS: HEMOGLOBIN 11.5 GM/dL (11.7-16.9); MCH 24.4 pg (25.7-33.7); MEAN CELL VOLUME 78.6 fl (80-96); MEAN PLT VOLUME 10.2 fl (7.5-11.1); PLATELET COUNT 157 K/MM3 (134-434); RDW 14.3 % (11.9-15.9)
[2018-08-08 08:05] LABS: ALBUMIN 3.1 g/dl (3.4-5.0); BILIRUBIN,TOTAL 0.5 mg/dL (0.2-1); CALCIUM 8.6 mg/dL (8.5-10.1); CREATININE 2.3 mg/dL (0.55-1.3); TOT PROT 5.8 g/dl (6.4-8.2)
[2018-08-08] MEDS: TAMSULOSIN HCL 0.4 MG CAP PO SCH (08:54)
[2018-08-08] MEDS: hydrALAZINE HCL 10 MG TABLET PO SCH ×2 (10:44→22:25)
[2018-08-08] MEDS: MEMANTINE HCL 5 MG TABLET (UD) PO SCH ×2 (10:44→22:25)
[2018-08-08] MEDS: ESCITALOPRAM OXALATE 10 MG TABLET (FP) PO SCH (10:44)
[2018-08-08] MEDS: ASPIRIN 81 MG CHEWABLE TABLETS PO SCH (10:44)
[2018-08-08] MEDS: PANTOPRAZOLE 20 MG TABLET (FP) PO SCH (10:44)
[2018-08-08] MEDS: LIDOCAINE 5% TOPICAL PATCH TP SCH (10:45)
[2018-08-08] MEDS: POLYETHYLENE GLYCOL 3350 119 GM BTL PO SCH (10:46)
--- NOTE | 2018-08-08 14:38 | PN ---
Progress Note, Physician Chief Complaint: UTI GARRISON History of Present Illness: Previous notes and events reviewed awake and alert NAD denies dysuria or hematuria repeat BC negative - Current Medication List Current Medications: Active Medications Acetaminophen (Tylenol -) 650 mg PO Q6H PRN PRN Reason: PAIN LEVEL 1-5 Last Admin: 08/06/18 17:02 Dose: 650 mg Aspirin (Asa -) 81 mg PO DAILY [facility] Last Admin: 08/08/18 10:44 Dose: 81 mg Docusate Sodium (Colace -) 100 mg PO Q12H PRN PRN Reason: CONSTIPATION Escitalopram Oxalate (Lexapro -) 10 mg PO DAILY [facility] Last Admin: 08/08/18 10:44 Dose: 10 mg Heparin Sodium (Porcine) (Heparin -) 5,000 unit SQ TID [facility] Last Admin: 08/08/18 13:40 Dose: 5,000 unit Hydralazine HCl (Apresoline -) 10 mg PO BID [facility] Last Admin: 08/08/18 10:44 Dose: 10 mg Piperacillin Sod/Tazobactam (Sod 3.375 gm/ Dextrose) 50 mls @ 100 mls/hr IVPB Q8H-IV [facility]; Protocol Last Admin: 08/08/18 10:44 Dose: 100 mls/hr Sodium Chloride (1/2 Normal Saline) 1,000 mls @ 75 mls/hr IV ASDIR [facility] Last Admin: 08/08/18 06:36 Dose: 75 mls/hr Lidocaine (Lidoderm Patch -) 1 patch TP DAILY [facility] Last Admin: 08/08/18 10:45 Dose: Not Given Memantine (Namenda -) 10 mg PO BID [facility] Last Admin: 08/08/18 10:44 Dose: 10 mg Miscellaneous (Lidoderm Patch Removal) 1 each MC DAILY@2200 [facility] Olanzapine (Zyprexa -) 2.5 mg PO [facility] Last Admin: 08/07/18 21:43 Dose: 2.5 mg Pantoprazole Sodium (Protonix -) 20 mg PO DAILY [facility] Last Admin: 08/08/18 10:44 Dose: 20 mg Polyethylene Glycol (Miralax (For Daily Use) -) 17 gm PO DAILY [facility] Last Admin: 08/08/18 10:46 Dose: Not Given Rosuvastatin Calcium (Crestor -) 20 mg PO [facility] Last Admin: 08/07/18 21:43 Dose: 20 mg Senna (Senna -) 2 tab PO HS PRN PRN Reason: CONSTIPATION Tamsulosin HCl (Flomax -) 0.4 mg PO DAILY@0830 [facility] Last Admin: 08/08/18 08:54 Dose: 0.4 mg - Objective Vital Signs: Vital Signs Temperature 97.5 F L 08/08/18 06:00 Pulse Rate 52 L 08/08/18 10:00 Respiratory Rate 18 08/08/18 10:00 Blood Pressure 134/55 L 08/08/18 10:00 O2 Sat by Pulse Oximetry (%) 94 L 08/07/18 20:54 Constitutional: Yes: No Distress, Calm Eyes: Yes: Conjunctiva Clear HENT: Yes: Atraumatic Cardiovascular: Yes: Regular Rate and Rhythm Respiratory: Yes: Regular, CTA Bilaterally Gastrointestinal: Yes: Normal Bowel Sounds, Soft Genitourinary: Yes: Incontinence Musculoskeletal: Yes: Muscle Weakness Extremities: Yes: WNL Edema: No Neurological: Yes: Alert, Oriented Psychiatric: Yes: Alert, Oriented Labs: CBC, BMP 08/08/18 05:20 08/08/18 05:20 INR, PTT INR 0.97 (0.83-1.09) 08/06/18 07:50 Problem List - Problems (1) BPH (benign prostatic hyperplasia) Assessment/Plan: -Tamsulosin Code(s): N40.0 - BENIGN PROSTATIC HYPERPLASIA WITHOUT LOWER URINRY TRACT SYMP (2) UTI (urinary tract infection) Assessment/Plan: -ID on board -IV Zosyn switched to PO Amoxicillin -afebrile -no leukocytosis -UC positive Group D Strep Enterococcous -UA 3+ leukocyte esterase, 2+ blood, 3+ protein Code(s): N39.0 - URINARY TRACT INFECTION, SITE NOT SPECIFIED (3) CKD (chronic kidney disease) Assessment/Plan: -BUN/Cr 42/2.3 -renal on board -monitor renal function daily Code(s): N18.9 - CHRONIC KIDNEY DISEASE, UNSPECIFIED (4) Hypertension Assessment/Plan: -continue Hydralazine -low Na diet Code(s): I10 - ESSENTIAL (PRIMARY) HYPERTENSION Qualifiers: (5) Coronary artery disease Assessment/Plan: -continue Aspirin and Rosuvastatin Code(s): I25.10 - ATHSCL HEART DISEASE OF [place] CORONARY ARTERY W/O ANG PCTRS (6) Bradycardia Assessment/Plan: -cardiology on board -monitor HR Code(s): R00.1 - BRADYCARDIA, UNSPECIFIED Assessment/Plan see problem list dvt ppx
--- NOTE | 2018-08-08 15:21 | PN ---
Progress Note (short form) - Note Progress Note: awake and alert smiling Vital Signs Period Temp Pulse Resp BP Sys/Handy Pulse Ox Last 24 Hr 97.5 F-98.3 F 51-63 18-18 134-154/55-79 94 cor-rrr lungs clear abd soft,nt ext no edema CBC, BMP 08/08/18 05:20 08/08/18 05:20 Microbiology 08/05/18 16:17 Urine - Urine Clean Catch Urine Culture - Preliminary Group D Strep Or Entero Coccus Group D Strep Or Entero Coccus#2 08/06/18 06:05 Blood - Peripheral Venous Blood Culture - Preliminary NO GROWTH OBTAINED AFTER 48 HOURS, INCUBATION TO CONTINUE FOR 3 DAYS. 08/06/18 06:00 Blood - Peripheral Venous Blood Culture - Preliminary NO GROWTH OBTAINED AFTER 48 HOURS, INCUBATION TO CONTINUE FOR 3 DAYS. 08/05/18 17:00 Blood - Peripheral Venous Blood Culture - Preliminary NO GROWTH OBTAINED AFTER 48 HOURS, INCUBATION TO CONTINUE FOR 3 DAYS. 08/05/18 17:30 Blood - Peripheral Venous Blood Culture - Preliminary NO GROWTH OBTAINED AFTER 48 HOURS, INCUBATION TO CONTINUE FOR 3 DAYS. a/p lethargy, hematuria pyuria NPH d/c zosyn f/u cultures switch to amox for enterococcus 500 bid given CKD treat 10 days po please call back if needed Problem List - Problems (1) Altered mental status Code(s): R41.82 - ALTERED MENTAL STATUS, UNSPECIFIED (2) Hematuria Code(s): R31.9 - HEMATURIA, UNSPECIFIED (3) UTI (urinary tract infection) Code(s): N39.0 - URINARY TRACT INFECTION, SITE NOT SPECIFIED (4) NPH (normal pressure hydrocephalus) Code(s): G91.2 - (IDIOPATHIC) NORMAL PRESSURE HYDROCEPHALUS
--- NOTE | 2018-08-08 16:39 | PN ---
Progress Note, Physician History of Present Illness: Pt seen and examined at bedside. He denies shortness of breath. - Current Medication List Current Medications: Active Medications Acetaminophen (Tylenol -) 650 mg PO Q6H PRN PRN Reason: PAIN LEVEL 1-5 Last Admin: 08/06/18 17:02 Dose: 650 mg Amoxicillin (Amoxicillin -) 500 mg PO BID [facility] Aspirin (Asa -) 81 mg PO DAILY [facility] Last Admin: 08/08/18 10:44 Dose: 81 mg Docusate Sodium (Colace -) 100 mg PO Q12H PRN PRN Reason: CONSTIPATION Escitalopram Oxalate (Lexapro -) 10 mg PO DAILY [facility] Last Admin: 08/08/18 10:44 Dose: 10 mg Heparin Sodium (Porcine) (Heparin -) 5,000 unit SQ TID [facility] Last Admin: 08/08/18 13:40 Dose: 5,000 unit Hydralazine HCl (Apresoline -) 10 mg PO BID [facility] Last Admin: 08/08/18 10:44 Dose: 10 mg Sodium Chloride (1/2 Normal Saline) 1,000 mls @ 75 mls/hr IV ASDIR [facility] Last Admin: 08/08/18 06:36 Dose: 75 mls/hr Lidocaine (Lidoderm Patch -) 1 patch TP DAILY [facility] Last Admin: 08/08/18 10:45 Dose: Not Given Memantine (Namenda -) 10 mg PO BID [facility] Last Admin: 08/08/18 10:44 Dose: 10 mg Miscellaneous (Lidoderm Patch Removal) 1 each MC DAILY@2200 [facility] Olanzapine (Zyprexa -) 2.5 mg PO HS [facility] Last Admin: 08/07/18 21:43 Dose: 2.5 mg Pantoprazole Sodium (Protonix -) 20 mg PO DAILY [facility] Last Admin: 08/08/18 10:44 Dose: 20 mg Polyethylene Glycol (Miralax (For Daily Use) -) 17 gm PO DAILY [facility] Last Admin: 08/08/18 10:46 Dose: Not Given Rosuvastatin Calcium (Crestor -) 20 mg PO HS [facility] Last Admin: 08/07/18 21:43 Dose: 20 mg Senna (Senna -) 2 tab PO HS PRN PRN Reason: CONSTIPATION Tamsulosin HCl (Flomax -) 0.4 mg PO DAILY@0830 [facility] Last Admin: 08/08/18 08:54 Dose: 0.4 mg - Objective Vital Signs: Vital Signs Temperature 98.3 F 08/08/18 14:44 Pulse Rate 63 08/08/18 14:44 Respiratory Rate 18 08/08/18 14:44 Blood Pressure 154/79 08/08/18 14:44 O2 Sat by Pulse Oximetry (%) 94 L 08/07/18 20:54 Constitutional: Yes: Calm Eyes: Yes: Conjunctiva Clear HENT: Yes: Atraumatic Neck: Yes: Supple Cardiovascular: Yes: S1, S2 Respiratory: Yes: CTA Bilaterally Gastrointestinal: Yes: Soft Genitourinary: Yes: WNL Musculoskeletal: Yes: WNL Edema: No Neurological: Yes: Oriented Labs: CBC, BMP 08/08/18 05:20 08/08/18 05:20 INR, PTT INR 0.97 (0.83-1.09) 08/06/18 07:50 Problem List - Problems (1) Coronary artery disease Code(s): I25.10 - ATHSCL HEART DISEASE OF [place] CORONARY ARTERY W/O ANG PCTRS (2) Depression Code(s): F32.9 - MAJOR DEPRESSIVE DISORDER, SINGLE EPISODE, UNSPECIFIED (3) UTI (urinary tract infection) Code(s): N39.0 - URINARY TRACT INFECTION, SITE NOT SPECIFIED (4) Renal insufficiency Code(s): N28.9 - DISORDER OF KIDNEY AND URETER, UNSPECIFIED Assessment/Plan Current Medications Generic Name Dose Route Start Last Admin Trade Name Freq PRN Reason Stop Dose Admin Acetaminophen 650 mg 08/05/18 17:45 08/06/18 17:02 Tylenol - PO 650 mg Q6H PRN Administration PAIN LEVEL 1-5 Amoxicillin 500 mg 08/08/18 22:00 Amoxicillin - PO BID [facility] Aspirin 81 mg 08/06/18 10:00 08/08/18 10:44 Asa - PO 81 mg DAILY [facility] Administration Docusate Sodium 100 mg 08/05/18 17:48 Colace - PO Q12H PRN CONSTIPATION Escitalopram Oxalate 10 mg 08/06/18 10:00 08/08/18 10:44 Lexapro - PO 10 mg DAILY [facility] Administration Heparin Sodium (Porcine) 5,000 unit 08/05/18 22:00 08/08/18 13:40 Heparin - SQ 5,000 unit TID [facility] Administration Hydralazine HCl 10 mg 08/05/18 18:00 08/08/18 10:44 Apresoline - PO 10 mg BID [facility] Administration Sodium Chloride 1,000 mls @ 75 mls/hr 08/06/18 13:45 08/08/18 06:36 1/2 Normal Saline IV 75 mls/hr ASDIR [facility] Administration Lidocaine 1 patch 08/08/18 10:00 08/08/18 10:45 Lidoderm Patch - TP Not Given DAILY [facility] Memantine 10 mg 08/05/18 22:00 08/08/18 10:44 Namenda - PO 10 mg BID [facility] Administration Miscellaneous 1 each 08/08/18 22:00 Lidoderm Patch Removal MC DAILY@2200 [facility] Olanzapine 2.5 mg 08/05/18 22:00 08/07/18 21:43 Zyprexa - PO 2.5 mg HS [facility] Administration Pantoprazole Sodium 20 mg 08/06/18 10:00 08/08/18 10:44 Protonix - PO 20 mg DAILY [facility] Administration Polyethylene Glycol 17 gm 08/08/18 10:00 08/08/18 10:46 Miralax (For Daily Use) - PO Not Given DAILY [facility] Rosuvastatin Calcium 20 mg 08/05/18 22:00 08/07/18 21:43 Crestor - PO 20 mg HS [facility] Administration Senna 2 tab 08/05/18 17:48 Senna - PO HS PRN CONSTIPATION Tamsulosin HCl 0.4 mg 08/06/18 08:30 08/08/18 08:54 Flomax - PO 0.4 mg DAILY@0830 [facility] Administration Impression 1. CKD 2. PKD 3. dizziness 4. HTN 5. weakness 6. loss of appetite 7. prostate cancer 8. dementia 9. 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
[2018-08-08] MEDS ORDERED: LIDOCAINE PATCH REMOVAL MC SCH (22:00)
[2018-08-08] MEDS: AMOXICILLIN 500 MG CAPSULE (FP) PO SCH (22:24)
[2018-08-08] MEDS: OLANZapine 5 MG TABLET PO SCH (22:24)
[2018-08-08] MEDS: ROSUVASTATIN CA 20 MG TABLET (FP) PO SCH (22:25)
[2018-08-09] MEDS: HEPARIN NA (PORCINE) 5,000 UNITS/ML 1ML VIAL SQ SCH ×2 (05:26→15:51)
[2018-08-09 07:31] LABS: HEMATOCRIT 37.1 % (35.4-49); HEMOGLOBIN 11.6 GM/dL (11.7-16.9); MCH 24.7 pg (25.7-33.7); MCHC 31.4 g/dl (32.0-35.9); MEAN CELL VOLUME 78.9 fl (80-96); MEAN PLT VOLUME 9.6 fl (7.5-11.1); PLATELET COUNT 141 K/MM3 (134-434); RBC 4.71 M/mm3 (4.00-5.60); RDW 14.4 % (11.9-15.9); WHITE BLOOD COUNT 6.9 K/mm3 (4.0-10.0)
[2018-08-09 08:09] LABS: ALBUMIN 3.1 g/dl (3.4-5.0); BILIRUBIN,TOTAL 0.4 mg/dL (0.2-1); CALCIUM 8.6 mg/dL (8.5-10.1); CREATININE 2.3 mg/dL (0.55-1.3); POTASSIUM 5.1 mmol/L (3.5-5.1); TOT PROT 5.9 g/dl (6.4-8.2)
[2018-08-09] MEDS ORDERED: PT OWN MED DRAWER 7, Y5N ONE (09:07)
[2018-08-09] MEDS: TAMSULOSIN HCL 0.4 MG CAP PO SCH (09:19)
[2018-08-09] MEDS: hydrALAZINE HCL 10 MG TABLET PO SCH (09:19)
[2018-08-09] MEDS: ASPIRIN 81 MG CHEWABLE TABLETS PO SCH (09:19)
[2018-08-09] MEDS: MEMANTINE HCL 5 MG TABLET (UD) PO SCH (09:19)
[2018-08-09] MEDS: PANTOPRAZOLE 20 MG TABLET (FP) PO SCH (09:19)
[2018-08-09] MEDS: ESCITALOPRAM OXALATE 10 MG TABLET (FP) PO SCH (09:19)
[2018-08-09] MEDS: AMOXICILLIN 500 MG CAPSULE (FP) PO SCH (09:19)
[2018-08-09] MEDS: LIDOCAINE 5% TOPICAL PATCH TP SCH (09:20)
[2018-08-09] MEDS: POLYETHYLENE GLYCOL 3350 119 GM BTL PO SCH (09:30)
--- NOTE | 2018-08-09 13:12 | DS ---
Physical Examination Vital Signs: Vital Signs Temperature 97.6 F 08/09/18 09:34 Pulse Rate 58 L 08/09/18 09:34 Respiratory Rate 22 H 08/09/18 09:34 Blood Pressure 155/79 08/09/18 09:34 O2 Sat by Pulse Oximetry (%) 95 08/09/18 09:30 Constitutional: Yes: Calm Cardiovascular: Yes: Regular Rate and Rhythm, S1, S2 Respiratory: Yes: CTA Bilaterally Gastrointestinal: Yes: Normal Bowel Sounds, Soft Edema: Yes Neurological: Yes: Alert, Oriented Labs: CBC, BMP 08/09/18 07:00 08/09/18 07:00 Discharge Summary Reason For Visit: URINARY TRACT INFECTION Current Active Problems BPH (benign prostatic hyperplasia) (Acute) Coronary artery disease (Acute) Depression (Acute) Hematuria (Acute) Prostate cancer (Acute) UTI (urinary tract infection) (Acute) Hospital Course: PCP: Natalya Rae - Admission Chief Complaint: UTI History of Present Illness: 87 year old M with h/o HTN, dementia, CAD s/p CABG, polycystic kidney disease, congenital solitary kidney, recurrent UTIs and 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 Fajardo on 04/13/17, prostate cancer s/p seed implantation, CAD, and hypertension. Patient presents to the ED today for somnolence and hematuria. reports patient was treated by his PCP with IV abx ( family unable recall which drug) over the course of the past week for UTI (? organism) . However, his condition did not improve and he remained with trace to small hematuria in diapers, decreased appetite and lethargy. PAtient was deemed to fail outpt management of UTI and recommended for admission. In ED: Vitals were: T 97.9, HT 63bpm, HR 50, BP 108/46 WBC 7.0, BUN/Cr 47/2.0 UA: +3 protein/ +2 blood, + 3Leuk, large bacteria. Blood and urine cultures sent to lab Decision made to admit patient for change in IV abx regimen. Patient started on Zosyn and when information about outpt culture data and most recent abx administration obtained, primary team may alter care plan accordingly. seen by ID on iv antibiotic for pyruia and then change to oral medications also seen by renal team as well renal sono done shows right hydronephrosis spoke to Dr Donnelly no need for duque and antonio has chronic hydronephrosis Condition: Improved - Instructions Diet, Activity, Other Instructions: amoxicillin 500mg po bid for 10 days Disposition: HOME - Home Medications Comprehensive Discharge Medication List: Ambulatory Orders Aspirin [ASA -] 81 mg PO DAILY 04/05/17 Escitalopram Oxalate [Lexapro -] 10 mg PO DAILY 04/05/17 hydrALAZINE HCL [Apresoline -] 10 mg PO BID 04/05/17 Rosuvastatin [Crestor -] 20 mg PO HS tablet 04/15/17 Tamsulosin HCl [Flomax -] 0.4 mg PO DAILY@0830 cap.er.24h 04/15/17 Memantine HCl [Namenda -] 10 mg PO BID 06/18/17 Mirabegron [Myrbetriq] 25 mg PO DAILY 06/18/17 Acetaminophen [Tylenol .Regular Strength -] 650 mg PO Q6H PRN tablet 09/17/17 Nebivolol [Bystolic -] 5 mg PO DAILY tab 09/17/17 Olanzapine [Zyprexa -] 2.5 mg PO HS 08/05/18
--- NOTE | 2018-08-09 14:05 | PN ---
Progress Note, Physician History of Present Illness: Pt seen and examined at bedside. He is awake and alert. He denies shortness of breath. He denies fevers or chills. - Current Medication List Current Medications: Active Medications Acetaminophen (Tylenol -) 650 mg PO Q6H PRN PRN Reason: PAIN LEVEL 1-5 Last Admin: 08/06/18 17:02 Dose: 650 mg Amoxicillin (Amoxicillin -) 500 mg PO BID [facility] Last Admin: 08/09/18 09:19 Dose: 500 mg Aspirin (Asa -) 81 mg PO DAILY [facility] Last Admin: 08/09/18 09:19 Dose: 81 mg Docusate Sodium (Colace -) 100 mg PO Q12H PRN PRN Reason: CONSTIPATION Escitalopram Oxalate (Lexapro -) 10 mg PO DAILY [facility] Last Admin: 08/09/18 09:19 Dose: 10 mg Heparin Sodium (Porcine) (Heparin -) 5,000 unit SQ TID [facility] Last Admin: 08/09/18 05:26 Dose: 5,000 unit Hydralazine HCl (Apresoline -) 10 mg PO BID [facility] Last Admin: 08/09/18 09:19 Dose: 10 mg Lidocaine (Lidoderm Patch -) 1 patch TP DAILY [facility] Last Admin: 08/09/18 09:20 Dose: 1 patch Memantine (Namenda -) 10 mg PO BID [facility] Last Admin: 08/09/18 09:19 Dose: 10 mg Miscellaneous (Lidoderm Patch Removal) 1 each MC DAILY@2200 [facility] Last Admin: 08/08/18 22:25 Dose: Not Given Olanzapine (Zyprexa -) 2.5 mg PO HS [facility] Last Admin: 08/08/18 22:24 Dose: 2.5 mg Pantoprazole Sodium (Protonix -) 20 mg PO DAILY [facility] Last Admin: 08/09/18 09:19 Dose: 20 mg Polyethylene Glycol (Miralax (For Daily Use) -) 17 gm PO DAILY [facility] Last Admin: 08/09/18 09:30 Dose: 17 gm Rosuvastatin Calcium (Crestor -) 20 mg PO HS [facility] Last Admin: 08/08/18 22:25 Dose: 20 mg Senna (Senna -) 2 tab PO HS PRN PRN Reason: CONSTIPATION Tamsulosin HCl (Flomax -) 0.4 mg PO DAILY@0830 [facility] Last Admin: 08/09/18 09:19 Dose: 0.4 mg - Objective Vital Signs: Vital Signs Temperature 97.6 F 08/09/18 09:34 Pulse Rate 58 L 08/09/18 09:34 Respiratory Rate 22 H 08/09/18 09:34 Blood Pressure 155/79 08/09/18 09:34 O2 Sat by Pulse Oximetry (%) 95 08/09/18 09:30 Constitutional: Yes: Calm Eyes: Yes: Conjunctiva Clear HENT: Yes: Atraumatic Neck: Yes: Supple Cardiovascular: Yes: S1, S2 Respiratory: Yes: CTA Bilaterally Gastrointestinal: Yes: Soft Genitourinary: Yes: WNL Musculoskeletal: Yes: WNL Edema: LLE: Trace, RLE: Trace Neurological: Yes: Oriented Psychiatric: Yes: Oriented Labs: CBC, BMP 08/09/18 07:00 08/09/18 07:00 INR, PTT INR 0.97 (0.83-1.09) 08/06/18 07:50 Problem List - Problems (1) Coronary artery disease Code(s): I25.10 - ATHSCL HEART DISEASE OF [place] CORONARY ARTERY W/O ANG PCTRS (2) Depression Code(s): F32.9 - MAJOR DEPRESSIVE DISORDER, SINGLE EPISODE, UNSPECIFIED (3) UTI (urinary tract infection) Code(s): N39.0 - URINARY TRACT INFECTION, SITE NOT SPECIFIED (4) Renal insufficiency Code(s): N28.9 - DISORDER OF KIDNEY AND URETER, UNSPECIFIED Assessment/Plan Current Medications Generic Name Dose Route Start Last Admin Trade Name Freq PRN Reason Stop Dose Admin Acetaminophen 650 mg 08/05/18 17:45 08/06/18 17:02 Tylenol - PO 650 mg Q6H PRN Administration PAIN LEVEL 1-5 Amoxicillin 500 mg 08/08/18 22:00 08/09/18 09:19 Amoxicillin - PO 500 mg BID [facility] Administration Aspirin 81 mg 08/06/18 10:00 08/09/18 09:19 Asa - PO 81 mg DAILY [facility] Administration Docusate Sodium 100 mg 08/05/18 17:48 Colace - PO Q12H PRN CONSTIPATION Escitalopram Oxalate 10 mg 08/06/18 10:00 08/09/18 09:19 Lexapro - PO 10 mg DAILY [facility] Administration Heparin Sodium (Porcine) 5,000 unit 08/05/18 22:00 08/09/18 05:26 Heparin - SQ 5,000 unit TID [facility] Administration Hydralazine HCl 10 mg 08/05/18 18:00 08/09/18 09:19 Apresoline - PO 10 mg BID [facility] Administration Lidocaine 1 patch 08/08/18 10:00 08/09/18 09:20 Lidoderm Patch - TP 1 patch DAILY [facility] Administration Memantine 10 mg 08/05/18 22:00 08/09/18 09:19 Namenda - PO 10 mg BID [facility] Administration Miscellaneous 1 each 08/08/18 22:00 08/08/18 22:25 Lidoderm Patch Removal MC Not Given DAILY@2200 [facility] Olanzapine 2.5 mg 08/05/18 22:00 08/08/18 22:24 Zyprexa - PO 2.5 mg HS [facility] Administration Pantoprazole Sodium 20 mg 08/06/18 10:00 08/09/18 09:19 Protonix - PO 20 mg DAILY [facility] Administration Polyethylene Glycol 17 gm 08/08/18 10:00 08/09/18 09:30 Miralax (For Daily Use) - PO 17 gm DAILY [facility] Administration Rosuvastatin Calcium 20 mg 08/05/18 22:00 08/08/18 22:25 Crestor - PO 20 mg HS [facility] Administration Senna 2 tab 08/05/18 17:48 Senna - PO HS PRN CONST[facility] Tamsulosin HCl 0.4 mg 08/06/18 08:30 08/09/18 09:19 Flomax - PO 0.4 mg DAILY@0830 [facility] Administration Impression 1. CKD 2. PKD 3. dizziness 4. HTN 5. weakness 6. loss of appetite 7. prostate cancer 8. dementia 9. 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 UTI Plan - urology eval for hydro - discussed with medical team - monitor renal function - will need outpt follow up - abx adjusted - avoid nsaids
--- NOTE | 2018-08-09 14:20 | PN ---
Progress Note (short form) - Note Progress Note: patient renal sonogram discussed with Dr Vaughn- hydronephrosis is old finding no need for duque cath dc home with po abx
[2018-08-09 14:32] VITALS: TEMP 98.4
[2018-08-09 20:22] VITALS: BP 150/73; PULSE 60
== END 2018-08-09 20:39 | disposition home or self-care (01) | DRG 690 ==
LOC: JER 12:23 → JERBED 17:01 → J5S 19:22
PROVIDERS: ADMIT Family Medicine; ATTEND Family Medicine
DX: N39.0 Urinary tract infection, site not specified (principal); G91.2 (Idiopathic) normal pressure hydrocephalus; Q61.2 Polycystic kidney, adult type; Q60.0 Renal agenesis, unilateral; R00.1 Bradycardia, unspecified; I11.9 Hypertensive heart disease without heart failure; N18.9 Chronic kidney disease, unspecified; E11.9 Type 2 diabetes mellitus without complications; I25.10 Atherosclerotic heart disease of native coronary artery without angina pectoris; Z68.30 Body mass index [BMI] 30.0-30.9, adult; E78.5 Hyperlipidemia, unspecified; N40.0 Benign prostatic hyperplasia without lower urinary tract symptoms; F32.9 Major depressive disorder, single episode, unspecified; F03.90 Unspecified dementia, unspecified severity, without behavioral disturbance, psychotic disturbance, mood disturbance, and anxiety; Z95.1 Presence of aortocoronary bypass graft; Z85.46 Personal history of malignant neoplasm of prostate; Z87.891 Personal history of nicotine dependence; M10.9 Gout, unspecified; R63.0 Anorexia; N13.30 Unspecified hydronephrosis
CPT/HCPCS: 36415; 71045-TC-FY; 76775-TC; 76856-TC; 80048; 80053; 81003; 83690; 83735; 83880; 84100; 84443; 85025; 85027; 85610; 85730; 86850; 86900; 86901; 87040; 87086; 87186; 93005; 93010; 97116-GP; 97161-GP; 99284-25; J1644; J7030

== ENCOUNTER 2018-10-07 11:25 | Inpatient (IN) | payer OTHER ==
--- NOTE | 2018-10-07 14:27 | PDOC ---
History of Present Illness - General Chief Complaint: Revisit, Lab Variance Stated Complaint: INFECTION Time Seen by Provider: 10/07/18 13:24 History Source: Patient, Spouse ( present at bedside.), Old Records Exam Limitations: Dementia - History of Present Illness Initial Comments: HPI: 87 y/o male presenting to [facility] ER on referral from Dr. Rae for multidrug resistant UTI. Pt has dementia and is unreliable at baseline. at bedside reports pt has been sleeping more frequently for the past month and developed persistent hematuria last week. Observed diaphoresis but does not believe he was febrile or had chills. Denies observing dysuria or other pain. Pt has a history of recurrent multidrug resistant UTIs. Last admitted to this facility on 05 Aug 2018 for similar symptoms. PCP: Dr. Haas/Dr. Rae Medical Hx: Prostate CA s/p seeding, chronic UTI, HTN, HLD, dementia, NPH s/p DRAPERY INSPECTOR shunt, polycystic kidney disease, born with 1 kidney, DM, CAGB Review of Systems: Unable to obtain secondary to pts baseline mental status. Physical Examination: Constitutional: Nontoxic elderly adult male in no acute distress or obvious discomfort. Found sitting in hospital chair. Alert and oriented to person. Speech was non-labored, non-pressured. Cardiovascular / Chest: Regular rate and regular rhythm. No murmur, rubs, clicks , or gallops. Peripheral pulses: radial pulses full. Respiratory: Breathing unlabored. Equal chest rise and fall. Clear to auscultation bilaterally. No stridor, no wheezing, no rhonchi. Gastrointestinal: abdomen is soft, non-tender, non-distended. Neuro: Alert and oriented. Moving all four extremities spontaneously. Skin: Warm, dry, and intact. Psych: Affect: appropriate. Mood: normal. Past History - Past Medical History Allergies/Adverse Reactions: Allergies Allergy/AdvReac Type Severity Reaction Status Date / Time No Known Allergies Allergy Verified 08/05/18 13:02 Home Medications: Ambulatory Orders Escitalopram Oxalate [Lexapro -] 10 mg PO DAILY 04/05/17 hydrALAZINE HCL [Apresoline -] 10 mg PO BID 04/05/17 Rosuvastatin [Crestor -] 20 mg PO HS tablet 04/15/17 Tamsulosin HCl [Flomax -] 0.4 mg PO DAILY@0830 cap.er.24h 04/15/17 Memantine HCl [Namenda -] 10 mg PO BID 06/18/17 Mirabegron [Myrbetriq] 50 mg PO DAILY 06/18/17 Acetaminophen [Tylenol .Regular Strength -] 650 mg PO Q6H PRN tablet 09/17/17 Nebivolol [Bystolic -] 5 mg PO DAILY tab 09/17/17 Olanzapine [Zyprexa -] 5 mg PO HS 08/05/18 Docusate Sodium [Colace -] 100 mg PO Q12H PRN capsule 08/09/18 Esomeprazole Magnesium [Nexium 24Hr] 40 mg PO DAILY 10/07/18 Anemia: No Asthma: No Cancer: Yes (- prostate) Cardiac Disorders: Yes CVA: (NPH, DRAPERY INSPECTOR shunt) COPD: No CHF: No DVT: No Dementia: Yes Diabetes: No GI Disorders: No Disorders: Yes (CKD, 1 KIDNEY) HTN: Yes Hypercholesterolemia: Yes Liver Disease: No Psychiatric Problems: Yes (depression) Seizures: No Thyroid Disease: No - Surgical History Abdominal Surgery: No Appendectomy: No Cardiac Surgery: Yes (open heart sx for valve replacement 2005) Cholecystectomy: No Lung Surgery: No Neurologic Surgery: Yes (DRAPERY INSPECTOR SHUNT) Orthopedic Surgery: Yes - Immunization History Immunization Up to Date: (UNKNOWN) - Suicide/Smoking/Psychosocial Hx Smoking History: Never smoked Have you smoked in the past 12 months: No Number of Cigarettes Smoked Daily: 20 (1PPD x 10yrs) If you are a former smoker, when did you quit?: 1966 'Breaking Loose' booklet given: 08/05/18 Hx Alcohol Use: No Drug/Substance Use Hx: No Substance Use Type: None Hx Substance Use Treatment: No *Physical Exam - Vital Signs Last Vital Signs Temp Pulse Resp BP Pulse Ox 98.4 F 55 L 20 154/55 L 94 L 10/07/18 12:02 10/07/18 12:02 10/07/18 12:02 10/07/18 12:02 10/07/18 12:02 ED Treatment Course - LABORATORY CBC & Chemistry Diagram: 10/07/18 14:15 10/07/18 14:15 - RADIOLOGY Radiology Studies Ordered: Category Date Time Status CXRPORT [CHEST X-RAY PORTABLE*] [RAD] Stat Radiology 10/07/18 13:26 Ordered PELVIC / BLADDER US [US] Stat Ultrasound 10/07/18 13:27 Ordered Medical Decision Making - Medical Decision Making Results provided from Dr. Rae's office: *DC/Admit/Observation/Transfer Diagnosis at time of Disposition: Complicated UTI (urinary tract infection) - Discharge Dispostion Condition at time of disposition: Stable Decision to Admit order: Yes - Referrals Referrals: Natalya Rae MD [Primary Care Provider] - - Patient Instructions - Post Discharge Activity
[2018-10-07 14:40] LABS: BASO % 0.9 % (0-2.0); EOS % 4.2 % (0-4.5); HEMATOCRIT 38.1 % (35.4-49); HEMOGLOBIN 12.2 GM/dL (11.7-16.9); LYMPH % 32.1 % (8-40); MCH 24.9 pg (25.7-33.7); MCHC 32.1 g/dl (32.0-35.9); MEAN CELL VOLUME 77.7 fl (80-96); MEAN PLT VOLUME 9.9 fl (7.5-11.1); MONO % 9.2 % (3.8-10.2); NEUT % 53.6 % (42.8-82.8); PLATELET COUNT 157 K/MM3 (134-434); RDW 14.7 % (11.9-15.9)
[2018-10-07 14:44] LABS: EPI CELLS 10.1 /HPF (0-5/HPF); HYALINE CASTS 12 /lpf (0-8); PH,URINE 5.5 (5.0-8.0); URINE APPEARANCE TURBID; URINE BACTERIA 2232.6 /hpf (NEGATIVE); URINE BILIRUBIN NEGATIVE (NEGATIVE); URINE COLOR YELLOW; URINE GLUCOSE (UA) NEGATIVE (NEGATIVE); URINE KETONE NEGATIVE (NEGATIVE); URINE LEUK ESTERASE 3+ (NEGATIVE); URINE NITRITE NEGATIVE (NEGATIVE); URINE PROTEIN 3+ (NEGATIVE); URINE UROBILINOGEN 0.2 mg/dL (0.2-1.0); URINE WBC 3457 /hpf (0-5)
[2018-10-07] MEDS ORDERED: ACETAMINOPHEN 325 MG TABLET (FP) PO PRN (14:46)
[2018-10-07] MEDS ORDERED: DOCUSATE SODIUM 100 MG CAPSULE (FP) PO PRN (14:46)
--- NOTE | 2018-10-07 14:54 | PDOC ---
Documentation entered by Cesar López SCRIBE, acting as scribe for Vale Vidal MD. Vale Vidal MD: This documentation has been prepared by the rolandeRene Joel, SCRIBE, under my direction and personally reviewed by me in its entirety. I confirm that the documentation accurately reflects all work, treatment, procedures, and medical decision making performed by me. Attending Attestation - Resident Resident Name: Eduardo Cedillo - ED Attending Attestation I have performed the following: I have examined & evaluated the patient, The case was reviewed & discussed with the resident, I agree w/resident's findings & plan, Exceptions are as noted - HPI HPI: 87 yo M history HTN, HL, prostate CA, prior UTIs presents with hematuria, positive UA. Sent by Dr. Rae for admission because the infection was resistant to multiple antibiotics. - Physicial Exam PE: GENERAL: Awake, alert, and fully oriented, in no acute distress HEAD: No signs of trauma EYES: PERRLA, EOMI, sclera anicteric, conjunctiva clear ENT: Auricles normal inspection, hearing grossly normal, nares patent, oropharynx clear without exudates. Moist mucosa NECK: Normal ROM, supple, no lymphadenopathy, JVD, or masses LUNGS: Breath sounds equal, clear to auscultation bilaterally. No wheezes, and no crackles HEART: Regular rate and rhythm, normal S1 and S2, no murmurs, rubs or gallops ABDOMEN: Soft, nontender, normoactive bowel sounds. No guarding, no rebound. No masses EXTREMITIES: Normal range of motion, no edema. No clubbing or cyanosis. No cords, erythema, or tenderness NEUROLOGICAL: Cranial nerves II through XII grossly intact. Normal speech. Motor and sensation intact SKIN: Warm, dry, normal turgor, no rashes or lesions noted. - Medical Decision Making Pt sent for hematuria, found to have multidrug resistant UTI as an outpatient. Will send labs and UA/UCx. Will obtain kidney sono as per Dr. Rae, as patient has history of hydronephrosis.
[2018-10-07 14:58] LABS: ALBUMIN 3.5 g/dl (3.4-5.0); BILIRUBIN,TOTAL 0.2 mg/dL (0.2-1); CALCIUM 8.7 mg/dL (8.5-10.1); CREATININE 2.9 mg/dL (0.55-1.3); POTASSIUM 4.8 mmol/L (3.5-5.1); TOT PROT 6.5 g/dl (6.4-8.2)
[2018-10-07] MEDS: LACTATED RINGERS SOLUTION 1,000 ML/1,000 ML INFUS.BAG IV SCH (16:35)
--- NOTE | 2018-10-07 16:38 | PN ---
Progress Note (short form) - Note Progress Note: ID CONSULT DICTATED MULTI-DRUG RESISTANT UTI ACINETOBACTER HEMATURIA CKD OBTAIN BC REPEAT URINE C/S EMPIIRIC MEROPENEM ADJUSTED FOR RENAL FUNCTION PENDING C/S
[2018-10-07] MEDS ORDERED: MEROPENEM 1 GM VIAL (RESTRICTED TO ID) IVPB ONE (16:52)
[2018-10-07] MEDS: MEROPENEM 500 MG in DEXTROSE 5%-WATER 100 ML IVPB SCH (17:10)
--- NOTE | 2018-10-07 18:28 | CONS ---
INFECTIOUS DISEASE CONSULTATION DATE OF CONSULTATION: 10/07/2018 The patient is an 87-year-old male with a history of recurrent urinary tract infections, now evaluated for votha-zfnk-myamhasmg urinary tract infection. According to the chart and the patient's who is present at the time of the examination, he had developed increasing somnolence associated with gross hematuria 1 week prior to admission. He was also noted to be diaphoretic and had subjective fevers. He was given intravenous antibiotics at home for approximately 1 week. Further details are not available. A urine culture was obtained and grew a [id number] acinetobacter. At the present time, he is awake. He is in no acute distress. He is not acutely toxic appearing. He denies any dysuria. No complaints of suprapubic or flank pain. He has had a history of recurrent urinary tract infections and has had admissions in the past for recurrent urinary tract infection and toxic metabolic encephalopathy. Most recent urine cultures were positive for enterococcus. His last hospitalization was in July of 2018. 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 PAST SURGICAL HISTORY: Status post BAR MACHINE OPERATOR PRODUCTION shunt, coronary artery bypass graft in 2005. ALLERGIES: No known drug allergies. MEDICATIONS: At the present time include Tylenol, Colace, hydralazine, Namenda, Zyprexa, Protonix, Crestor, Flomax. SOCIAL HISTORY: He lives at home with his significant other. He is a former smoker. SYSTEMS REVIEW: Neurologic: Positive for dementia and history of BAR MACHINE OPERATOR PRODUCTION shunt. Cardiac: Negative chest pain or palpitations. Respiratory: Negative cough or sputum production. Gastrointestinal: Negative vomiting or diarrhea. Genitourinary: As per HPI. LABORATORY DATA: White count 8.0, hematocrit 38.1, platelet count 157. BUN 61, creatinine 2.9. Urinalysis: White cells 3457, blood 2+, and no red cells recorded. Cultures are pending. Renal ultrasound pending. Chest x-ray negative for acute infiltrate. PHYSICAL EXAMINATION: General: He is awake and alert, supine on stretcher in the emergency room. Vital Signs: Temperature 98.4; blood pressure 154/55; pulse 55, regular; respirations 20 per minute. HEENT: Sclerae are anicteric. Heart: Sounds S1, S2. No murmur. Lungs: Clear. No rhonchi, rales, or wheezing. Abdomen: Slightly distended, soft. No tenderness. No suprapubic or flank tenderness. Extremities: Edema 1+. IMPRESSION: 1. Iquyw-szfi-zldnetknq urinary tract infection, acinetobacter. 2. Hematuria. 3. Vqshw-ix-hdmwrnd renal failure. 4. History of recurrent urinary tract infections. 5. Hydrocephalus status post ventriculoperitoneal shunt. Repeat urine culture has been obtained. Obtain blood cultures. Empiric antibiotic coverage with meropenem adjusted for renal function pending cultures. Contact isolation. Case discussed with the patient's present at the time of the examination. Thank you for the kind referral. RAYMOND PAK M.D. [id number]
[2018-10-07 18:48] VITALS: BMI 31.8
[2018-10-07] MEDS ORDERED: PT OWN MED DRAWER 7, Y5N ONE (20:58)
[2018-10-07] MEDS: hydrALAZINE HCL 10 MG TABLET PO SCH (22:02)
[2018-10-07] MEDS: OLANZapine 5 MG TABLET PO SCH (22:02)
[2018-10-07] MEDS: ROSUVASTATIN CA 20 MG TABLET (FP) PO SCH (22:02)
[2018-10-07] MEDS: MEMANTINE HCL 5 MG TABLET (UD) PO SCH (22:02)
[2018-10-08] MEDS: LACTATED RINGERS SOLUTION 1,000 ML/1,000 ML INFUS.BAG IV SCH (02:41)
[2018-10-08] MEDS: MEROPENEM 500 MG in DEXTROSE 5%-WATER 100 ML IVPB SCH ×2 (05:12→16:00)
--- NOTE | 2018-10-08 08:28 | CON.GU ---
Consult Consult Specialty:: urology Referred by:: Kyra Reason for Consultation:: hemorrhagic cystitis - History of Present Illness Chief Complaint: hemorrhagic cystitis History of Present Illness: Patient is an 87 year old male with history of chronc right upj obstruction with CKD and has a multiresistant uti which led to gross hematuria. Patient denies any difficulty voiding and a scan of his bladder was unremarkable for urinary retention. He denies nausea, vomiting, fever, chills, or renal colic. 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, Other (hydrocephalus) Cardio/Vascular: Yes: CAD, HTN, Hyperlipdemia Renal/: Yes: Renal Inusuff, UTI, Other (Polycystic kidney disease) Rheumatology: Yes: Gout - Past Surgical History Past Surgical History: Yes: CABG - Alcohol/Substance Use Hx Alcohol Use: No History of Substance Use: reports: None - Smoking History Smoking history: Never smoked Have you smoked in the past 12 months: No Aproximately how many cigarettes per day: 20 (1PPD x 10yrs) If you are a former smoker, when did you quit?: 1966 - Social History Usual Living Arrangement: With Spouse ADL: 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 Services (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) History of Recent Travel: No Home Medications - Allergies Allergies/Adverse Reactions: Allergies Allergy/AdvReac Type Severity Reaction Status Date / Time No Known Allergies Allergy Verified 08/05/18 13:02 - Home Medications Home Medications: Ambulatory Orders Escitalopram Oxalate [Lexapro -] 10 mg PO DAILY 04/05/17 hydrALAZINE HCL [Apresoline -] 10 mg PO BID 04/05/17 Rosuvastatin [Crestor -] 20 mg PO HS tablet 04/15/17 Tamsulosin HCl [Flomax -] 0.4 mg PO DAILY@0830 cap.er.24h 04/15/17 Memantine HCl [Namenda -] 10 mg PO BID 06/18/17 Mirabegron [Myrbetriq] 50 mg PO DAILY 06/18/17 Acetaminophen [Tylenol .Regular Strength -] 650 mg PO Q6H PRN tablet 09/17/17 Nebivolol [Bystolic -] 5 mg PO DAILY tab 09/17/17 Olanzapine [Zyprexa -] 5 mg PO HS 08/05/18 Docusate Sodium [Colace -] 100 mg PO Q12H PRN capsule 08/09/18 Esomeprazole Magnesium [Nexium 24Hr] 40 mg PO DAILY 10/07/18 Family Disease History - Family Disease History Family Disease History: Other: Father ( (93) REnal disease), Mother ( (92) natural causes), Brother ( (79) stomach cancer), Sister ( (85) lung cancer) Physical Exam- Vital Signs: Vital Signs Temperature 97.6 F 10/08/18 07:56 Pulse Rate 48 L 10/08/18 07:56 Respiratory Rate 20 10/08/18 07:56 Blood Pressure 156/77 10/08/18 07:56 O2 Sat by Pulse Oximetry (%) 97 10/07/18 21:00 Constitutional: Yes: Well Nourished, No Distress, Calm Eyes: Yes: WNL, Conjunctiva Clear, EOM Intact HENT: Yes: WNL, Atraumatic, Normocephalic Neck: Yes: WNL Cardiovascular: Yes: Regular Rate and Rhythm Respiratory: Yes: Regular Gastrointestinal: Yes: WNL, Normal Bowel Sounds, Soft Renal/: Yes: WNL Kidneys: Yes: WNL Pelvis: Yes: WNL, Bladder Non Palpable Testicles: Yes: WNL Scrotum: Yes: WNL Penis: Yes: WNL Prostate Exam: Yes: Asymmetrical, Firm Labs: CBC, BMP 10/07/18 14:15 10/07/18 14:15 Imaging - Results Ultrasound: Report Reviewed Assessment/Plan impression hemorrhagic uti bph neurogenic bladder CKD plan consider d/c of myrbetriq as it may cause recurrent uti's; consider vesicare 10 mg or toviaz 8 mg increase fluids continue flomax antibiotics as per ID
[2018-10-08 08:45] LABS: BASO % 0.5 % (0-2.0); EOS % 4.6 % (0-4.5); HEMOGLOBIN 13.2 GM/dL (11.7-16.9); LYMPH % 31.2 % (8-40); MCHC 32.2 g/dl (32.0-35.9); MEAN CELL VOLUME 77.7 fl (80-96); MEAN PLT VOLUME 9.8 fl (7.5-11.1); MONO % 8.1 % (3.8-10.2); NEUT % 55.6 % (42.8-82.8); PLATELET COUNT 145 K/MM3 (134-434); RBC 5.28 M/mm3 (4.00-5.60); RDW 14.8 % (11.9-15.9); WHITE BLOOD COUNT 8.1 K/mm3 (4.0-10.0)
--- NOTE | 2018-10-08 09:05 | HP ---
Admitting History and Physical - Primary Care Physician PCP: Natalya Rae - Admission Chief Complaint: ALTERED MENTAL STATUS/LETHARGY History of Present Illness: PATIENT HAS HAD 1 WEEK OF LETHARGY, WEAKNESS, POOR APPETITE WITH CONFUSION PER DAUGHTER. HISTORY OF RIGHT HYDRONEPHROSIS, CRI/CKD, CHRONIC UTI, HTN, HYDROCEPALUS NPH S/P SHUNT, OA. 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, Other (hydrocephalus) Cardiovascular: Yes: CAD, HTN, Hyperlipdemia Renal/: Yes: Renal Inusuff, UTI, Other (Polycystic kidney disease) Rheumatology: Yes: Gout - Past Surgical History Past Surgical History: Yes: CABG - Smoking History Smoking history: Never smoked Have you smoked in the past 12 months: No Aproximately how many cigarettes per day: 20 (1PPD x 10yrs) If you are a former smoker, when did you quit?: 1967 - Alcohol/Substance Use Hx Alcohol Use: No History of Substance Use: reports: None - Social History ADL: Support Services (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) History of Recent Travel: No Home Medications - Allergies Allergies/Adverse Reactions: Allergies Allergy/AdvReac Type Severity Reaction Status Date / Time No Known Allergies Allergy Verified 08/05/18 13:02 - Home Medications Home Medications: Ambulatory Orders Escitalopram Oxalate [Lexapro -] 10 mg PO DAILY 04/05/17 hydrALAZINE HCL [Apresoline -] 10 mg PO BID 04/05/17 Rosuvastatin [Crestor -] 20 mg PO HS tablet 04/15/17 Tamsulosin HCl [Flomax -] 0.4 mg PO DAILY@0830 cap.er.24h 04/15/17 Memantine HCl [Namenda -] 10 mg PO BID 06/18/17 Mirabegron [Myrbetriq] 50 mg PO DAILY 06/18/17 Acetaminophen [Tylenol .Regular Strength -] 650 mg PO Q6H PRN tablet 09/17/17 Nebivolol [Bystolic -] 5 mg PO DAILY tab 09/17/17 Olanzapine [Zyprexa -] 5 mg PO HS 08/05/18 Docusate Sodium [Colace -] 100 mg PO Q12H PRN capsule 08/09/18 Esomeprazole Magnesium [Nexium 24Hr] 40 mg PO DAILY 10/07/18 Family Disease History - Family Disease History Family Disease History: Other: Father ( (93) REnal disease), Mother ( (92) natural causes), Brother ( (79) stomach cancer), Sister ( (85) lung cancer) Review of Systems - Review of Systems Constitutional: reports: Lethargy, Weakness Eyes: reports: No Symptoms HENT: reports: No Symptoms Neck: reports: No Symptoms Cardiovascular: reports: No Symptoms Respiratory: reports: No Symptoms Gastrointestinal: reports: No Symptoms Genitourinary: reports: Incontinence Musculoskeletal: reports: Muscle Weakness Integumentary: reports: No Symptoms Neurological: reports: Confusion, Pre-Existing Deficit, Unsteady Gait Endocrine: reports: No Symptoms Hematology/Lymphatic: reports: No Symptoms Psychiatric: reports: Other Physical Examination Vital Signs: Vital Signs Temperature 97.6 F 10/08/18 07:56 Pulse Rate 48 L 10/08/18 07:56 Respiratory Rate 20 10/08/18 07:56 Blood Pressure 156/77 10/08/18 07:56 O2 Sat by Pulse Oximetry (%) 97 10/07/18 21:00 Constitutional: Yes: Mild Distress Eyes: Yes: WNL HENT: Yes: WNL Neck: Yes: WNL Cardiovascular: Yes: Regular Rate and Rhythm Respiratory: Yes: WNL Gastrointestinal: Yes: WNL Renal/: Yes: Incontinence Musculoskeletal: Yes: Muscle Weakness Extremities: Yes: WNL Edema: No Peripheral Pulses WNL: Yes Integumentary: Yes: WNL Wound/Incision: Yes: Clean/Dry Neurological: Yes: Confusion, Weakness ...Motor Strength: LLE, RLE Psychiatric: Yes: Other
[2018-10-08] MEDS ORDERED: PT OWN MED DRAWER 7, Y5N ONE ×4 (09:12→21:35)
[2018-10-08] MEDS: hydrALAZINE HCL 10 MG TABLET PO SCH ×2 (09:18→22:29)
[2018-10-08] MEDS: MEMANTINE HCL 5 MG TABLET (UD) PO SCH ×2 (09:18→22:34)
[2018-10-08] MEDS: TAMSULOSIN HCL 0.4 MG CAP PO SCH (09:18)
[2018-10-08] MEDS: PANTOPRAZOLE 40 MG TABLET (FP) PO SCH (09:18)
[2018-10-08] MEDS: ESCITALOPRAM OXALATE 10 MG TABLET (FP) PO SCH (09:18)
[2018-10-08] MEDS: NEBIVOLOL 5 MG TABLET (FP) PO SCH (09:21)
[2018-10-08 09:25] LABS: ALBUMIN 3.4 g/dl (3.4-5.0); BILIRUBIN,TOTAL 0.3 mg/dL (0.2-1); BLOOD UREA NITROGEN 51.7 mg/dL (7-18); CALCIUM 8.8 mg/dL (8.5-10.1); CREATININE 2.5 mg/dL (0.55-1.3); MAGNESIUM 2.1 mg/dL (1.8-2.4); PHOSPHOROUS 4.3 mg/dL (2.5-4.9); TOT PROT 6.7 g/dl (6.4-8.2)
[2018-10-08] MEDS ORDERED: PATIENT'S OWN MEDICATION (NON-FORMULARY) (Mirabegron [Myrbetriq] 50 MG) PO SCH (10:00)
--- NOTE | 2018-10-08 10:56 | PN ---
Progress Note, Physician History of Present Illness: AWAKE IN BED CONFUSED OFFERS NO COMPLAINTS AFEBRILE WBC WNL AZOTEMIA IMPROVED CULTURES PENDING - Current Medication List Current Medications: Active Medications Acetaminophen (Tylenol -) 650 mg PO Q6H PRN PRN Reason: PAIN LEVEL 1-5 Docusate Sodium (Colace -) 100 mg PO Q12H PRN PRN Reason: CONSTIPATION Escitalopram Oxalate (Lexapro -) 10 mg PO DAILY [facility] Last Admin: 10/08/18 09:18 Dose: 10 mg Hydralazine HCl (Apresoline -) 10 mg PO BID [facility] Last Admin: 10/08/18 09:18 Dose: 10 mg Lactated Ringer's (Lactated Ringers Solution) 1,000 ml in 1,000 mls @ 100 mls/ hr IV ASDIR [facility] Last Admin: 10/08/18 02:41 Dose: 100 mls/hr Meropenem 500 mg/ Dextrose 100 mls @ 200 mls/hr IVPB Q12H [facility] Last Admin: 10/08/18 05:12 Dose: 200 mls/hr Memantine (Namenda -) 10 mg PO BID [facility] Last Admin: 10/08/18 09:18 Dose: 10 mg Nebivolol (Bystolic -) 5 mg PO DAILY [facility] Last Admin: 10/08/18 09:21 Dose: 5 mg Non-Formulary Medication (Mirabegron [Myrbetriq]) 50 mg PO DAILY [facility] Olanzapine (Zyprexa -) 5 mg PO HS [facility] Last Admin: 10/07/18 22:02 Dose: 5 mg Pantoprazole Sodium (Protonix -) 40 mg PO DAILY [facility] Last Admin: 10/08/18 09:18 Dose: 40 mg Rosuvastatin Calcium (Crestor -) 20 mg PO HS [facility] Last Admin: 10/07/18 22:02 Dose: 20 mg Tamsulosin HCl (Flomax -) 0.4 mg PO DAILY@0830 [facility] Last Admin: 10/08/18 09:18 Dose: 0.4 mg - Objective Vital Signs: Vital Signs Temperature 97.6 F 10/08/18 07:56 Pulse Rate 48 L 10/08/18 07:56 Respiratory Rate 20 10/08/18 07:56 Blood Pressure 156/77 10/08/18 07:56 O2 Sat by Pulse Oximetry (%) 97 10/07/18 21:00 Constitutional: Yes: No Distress Eyes: Yes: Conjunctiva Clear Cardiovascular: Yes: Regular Rate and Rhythm, S1, S2 Respiratory: Yes: CTA Bilaterally Gastrointestinal: Yes: Normal Bowel Sounds, Soft. No: Tenderness Edema: No Labs: CBC, BMP 10/08/18 08:28 10/08/18 08:28 Assessment/Plan RECURRENT UTI/ HX MDR ACINETOBACTER HEMATURIA CKD AWAIT C/S CONTINUE EMPIRIC MEROPENEM CONTACT PRECAUTIONS
--- NOTE | 2018-10-08 13:58 | CONSULT ---
Consult Consult Specialty:: Nephrology Reason for Consultation:: GARRISON - History of Present Illness Chief Complaint: sent in for UTI History of Present Illness: Pt is an 87 year old make with pmhx of CKD, PKD and recurrent UTI who was sent in for multi drug resistant UTI. He is awake and alert. He was found to have GARRISON and I was called to evaluate him. He did have hematuria last week. He was increasingly drowsy at home. His feels that there is an improvement today. He denies shortness of breath or lower ext edema. He denies nsaid use. - History Source History Provided By: Patient - Past Medical History PIE MAKER: Yes: Dementia, Other (hydrocephalus) Cardio/Vascular: Yes: CAD, HTN, Hyperlipdemia Renal/: Yes: Renal Inusuff, UTI, Other (Polycystic kidney disease) Rheumatology: Yes: Gout - Past Surgical History Past Surgical History: Yes: CABG - Alcohol/Substance Use Hx Alcohol Use: No History of Substance Use: reports: None - Smoking History Smoking history: Never smoked Have you smoked in the past 12 months: No Aproximately how many cigarettes per day: 20 (1PPD x 10yrs) If you are a former smoker, when did you quit?: 1966 - Social History Usual Living Arrangement: With Spouse 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) History of Recent Travel: No Home Medications - Allergies Allergies/Adverse Reactions: Allergies Allergy/AdvReac Type Severity Reaction Status Date / Time No Known Allergies Allergy Verified 08/05/18 13:02 - Home Medications Home Medications: Ambulatory Orders Escitalopram Oxalate [Lexapro -] 10 mg PO DAILY 04/05/17 hydrALAZINE HCL [Apresoline -] 10 mg PO BID 04/05/17 Rosuvastatin [Crestor -] 20 mg PO HS tablet 04/15/17 Tamsulosin HCl [Flomax -] 0.4 mg PO DAILY@0830 cap.er.24h 04/15/17 Memantine HCl [Namenda -] 10 mg PO BID 06/18/17 Mirabegron [Myrbetriq] 50 mg PO DAILY 06/18/17 Acetaminophen [Tylenol .Regular Strength -] 650 mg PO Q6H PRN tablet 09/17/17 Nebivolol [Bystolic -] 5 mg PO DAILY tab 09/17/17 Olanzapine [Zyprexa -] 5 mg PO HS 08/05/18 Docusate Sodium [Colace -] 100 mg PO Q12H PRN capsule 08/09/18 Esomeprazole Magnesium [Nexium 24Hr] 40 mg PO DAILY 10/07/18 Family Disease History - Family Disease History Family Disease History: Other: Father ( (93) REnal disease), Mother ( (92) natural causes), Brother ( (79) stomach cancer), Sister ( (85) lung cancer) Review of Systems - Review of Systems Constitutional: reports: Malaise. denies: Chills Eyes: reports: No Symptoms HENT: reports: No Symptoms Neck: reports: No Symptoms Cardiovascular: reports: No Symptoms Respiratory: reports: No Symptoms Gastrointestinal: reports: No Symptoms Genitourinary: reports: No Symptoms Musculoskeletal: reports: Muscle Weakness Integumentary: reports: No Symptoms Endocrine: reports: No Symptoms Hematology/Lymphatic: reports: No Symptoms Physical Exam Vital Signs: Vital Signs Temperature 98 F 10/08/18 09:00 Pulse Rate 51 L 10/08/18 09:00 Respiratory Rate 20 10/08/18 09:00 Blood Pressure 139/100 10/08/18 09:00 O2 Sat by Pulse Oximetry (%) 97 10/07/18 21:00 Constitutional: Yes: Calm Eyes: Yes: Conjunctiva Clear HENT: Yes: Atraumatic Neck: Yes: Supple Cardiovascular: Yes: S1, S2 Respiratory: Yes: CTA Bilaterally Gastrointestinal: Yes: Soft, Abdomen, Obese Renal/: Yes: Incontinence Musculoskeletal: Yes: Muscle Weakness Edema: No Neurological: Yes: Oriented Psychiatric: Yes: Oriented Labs: CBC, BMP 10/08/18 08:28 10/08/18 08:28 Laboratory Tests 08/06/18 08/07/18 08/08/18 06:00 06:30 05:20 WBC Hgb Plt Count Chloride Creatinine 1.8 H 2.0 H 2.3 H Urine Protein Urine Blood Ur Leukocyte Esterase 08/09/18 10/07/18 10/07/18 07:00 14:15 14:15 WBC 8.0 Hgb 12.2 Plt Count 157 Chloride Creatinine 2.3 H 2.9 H Urine Protein Urine Blood Ur Leukocyte Esterase 10/07/18 10/08/18 10/08/18 14:15 08:28 08:28 WBC 8.1 Hgb 13.2 Plt Count 145 Chloride 113 H Creatinine 2.5 H Urine Protein 3+ H Urine Blood 2+ H Ur Leukocyte Esterase 3+ H Imaging - Results Chest X-ray: Report Reviewed Problem List - Problems (1) Complicated UTI (urinary tract infection) Code(s): N39.0 - URINARY TRACT INFECTION, SITE NOT SPECIFIED (2) GARRISON (acute kidney injury) Code(s): N17.9 - ACUTE KIDNEY FAILURE, UNSPECIFIED (3) CKD (chronic kidney disease) Code(s): N18.9 - CHRONIC KIDNEY DISEASE, UNSPECIFIED Assessment/Plan Current Medications Generic Name Dose Route Start Last Admin Trade Name Freq PRN Reason Stop Dose Admin Acetaminophen 650 mg 10/07/18 14:46 Tylenol - PO Q6H PRN PAIN LEVEL 1-5 Docusate Sodium 100 mg 10/07/18 14:46 Colace - PO Q12H PRN CONSTIPATION Escitalopram Oxalate 10 mg 10/08/18 10:00 10/08/18 09:18 Lexapro - PO 10 mg DAILY MITCH Administration Hydralazine HCl 10 mg 10/07/18 22:00 10/08/18 09:18 Apresoline - PO 10 mg BID MITCH Administration Lactated Ringer's 1,000 ml in 1,000 mls @ 100 mls/hr 10/07/18 16:00 10/08/18 02:41 Lactated Ringers Solution IV 100 mls/hr ASDIR [facility]CH Administration Meropenem 500 mg/ Dextrose 100 mls @ 200 mls/hr 10/07/18 16:45 10/08/18 05:12 IVPB 200 mls/hr Q12H MITCH Administration Memantine 10 mg 10/07/18 22:00 10/08/18 09:18 Namenda - PO 10 mg BID MITCH Administration Nebivolol 5 mg 10/08/18 10:00 10/08/18 09:21 Bystolic - PO 5 mg DAILY [facility] Administration Non-Formulary Medication 50 mg 10/08/18 10:00 Mirabegron [Myrbetriq] PO DAILY [facility] Olanzapine 5 mg 10/07/18 22:00 10/07/18 22:02 Zyprexa - PO 5 mg HS [facility] Administration Pantoprazole Sodium 40 mg 10/08/18 10:00 10/08/18 09:18 Protonix - PO 40 mg DAILY [facility] Administration Rosuvastatin Calcium 20 mg 10/07/18 22:00 10/07/18 22:02 Crestor - PO 20 mg HS [facility] Administration Tamsulosin HCl 0.4 mg 10/08/18 08:30 10/08/18 09:18 Flomax - PO 0.4 mg DAILY@0830 [facility] Administration Impression 1. CKD 2. PKD 3. UTI 4. HTN 5. GARRISON 6. bilateral subdural hygromas 7. prostate cancer 8. dementia 9. hyperlipidemia Plan - renal function is improving - cont abx - follow cultures - change fluids to 1/2 ns - low potassium diet - abx adjusted - avoid nsaids
--- NOTE | 2018-10-08 14:44 | EKG ---
Test Reason : Blood Pressure : / mmHG Vent. 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
[2018-10-08] MEDS: SODIUM CHLORIDE 0.45% 1,000 ML IV SCH (20:31)
[2018-10-08] MEDS: ROSUVASTATIN CA 20 MG TABLET (FP) PO SCH (21:40)
[2018-10-08] MEDS: OLANZapine 5 MG TABLET PO SCH (21:41)
[2018-10-09] MEDS ORDERED: PT OWN MED DRAWER 7, Y5N ONE ×4 (04:34→21:09)
[2018-10-09] MEDS: MEROPENEM 500 MG in DEXTROSE 5%-WATER 100 ML IVPB SCH ×2 (04:43→16:33)
--- NOTE | 2018-10-09 07:21 | PN ---
Progress Note, Physician - Current Medication List Current Medications: Active Medications Acetaminophen (Tylenol -) 650 mg PO Q6H PRN PRN Reason: PAIN LEVEL 1-5 Docusate Sodium (Colace -) 100 mg PO Q12H PRN PRN Reason: CONSTIPATION Escitalopram Oxalate (Lexapro -) 10 mg PO DAILY [facility] Last Admin: 10/08/18 09:18 Dose: 10 mg Hydralazine HCl (Apresoline -) 10 mg PO BID [facility] Last Admin: 10/08/18 22:29 Dose: 10 mg Meropenem 500 mg/ Dextrose 100 mls @ 200 mls/hr IVPB Q12H [facility] Last Admin: 10/09/18 04:43 Dose: 200 mls/hr Sodium Chloride (1/2 Normal Saline) 1,000 mls @ 75 mls/hr IV ASDIR [facility] Last Admin: 10/08/18 20:31 Dose: 75 mls/hr Memantine (Namenda -) 10 mg PO BID [facility] Last Admin: 10/08/18 22:34 Dose: 10 mg Nebivolol (Bystolic -) 5 mg PO DAILY [facility] Last Admin: 10/08/18 09:21 Dose: 5 mg Non-Formulary Medication (Mirabegron [Myrbetriq]) 50 mg PO DAILY [facility] Olanzapine (Zyprexa -) 5 mg PO HS [facility] Last Admin: 10/08/18 21:41 Dose: 5 mg Pantoprazole Sodium (Protonix -) 40 mg PO DAILY [facility] Last Admin: 10/08/18 09:18 Dose: 40 mg Rosuvastatin Calcium (Crestor -) 20 mg PO HS [facility] Last Admin: 10/08/18 21:40 Dose: 20 mg Tamsulosin HCl (Flomax -) 0.4 mg PO DAILY@0830 [facility] Last Admin: 10/08/18 09:18 Dose: 0.4 mg - Objective Vital Signs: Vital Signs Temperature 98.2 F 10/09/18 07:03 Pulse Rate 55 L 10/09/18 07:03 Respiratory Rate 18 10/09/18 07:03 Blood Pressure 150/70 10/09/18 07:03 O2 Sat by Pulse Oximetry (%) 97 10/08/18 21:00 Labs: CBC, BMP 10/08/18 08:28 10/08/18 08:28
--- NOTE | 2018-10-09 07:23 | PN ---
Progress Note, Physician Chief Complaint: awake confused in chair eating denies cp/sob today no fevers - Current Medication List Current Medications: Active Medications Acetaminophen (Tylenol -) 650 mg PO Q6H PRN PRN Reason: PAIN LEVEL 1-5 Docusate Sodium (Colace -) 100 mg PO Q12H PRN PRN Reason: CONSTIPATION Escitalopram Oxalate (Lexapro -) 10 mg PO DAILY [facility] Last Admin: 10/08/18 09:18 Dose: 10 mg Hydralazine HCl (Apresoline -) 10 mg PO BID [facility] Last Admin: 10/08/18 22:29 Dose: 10 mg Meropenem 500 mg/ Dextrose 100 mls @ 200 mls/hr IVPB Q12H [facility] Last Admin: 10/09/18 04:43 Dose: 200 mls/hr Sodium Chloride (1/2 Normal Saline) 1,000 mls @ 75 mls/hr IV ASDIR [facility] Last Admin: 10/08/18 20:31 Dose: 75 mls/hr Memantine (Namenda -) 10 mg PO BID [facility] Last Admin: 10/08/18 22:34 Dose: 10 mg Nebivolol (Bystolic -) 5 mg PO DAILY [facility] Last Admin: 10/08/18 09:21 Dose: 5 mg Non-Formulary Medication (Mirabegron [Myrbetriq]) 50 mg PO DAILY [facility] Olanzapine (Zyprexa -) 5 mg PO [facility] Last Admin: 10/08/18 21:41 Dose: 5 mg Pantoprazole Sodium (Protonix -) 40 mg PO DAILY [facility] Last Admin: 10/08/18 09:18 Dose: 40 mg Rosuvastatin Calcium (Crestor -) 20 mg PO [facility] Last Admin: 10/08/18 21:40 Dose: 20 mg Tamsulosin HCl (Flomax -) 0.4 mg PO DAILY@0830 [facility] Last Admin: 10/08/18 09:18 Dose: 0.4 mg - Objective Vital Signs: Vital Signs Temperature 98.2 F 10/09/18 07:03 Pulse Rate 55 L 10/09/18 07:03 Respiratory Rate 18 10/09/18 07:03 Blood Pressure 150/70 10/09/18 07:03 O2 Sat by Pulse Oximetry (%) 97 10/08/18 21:00 Constitutional: Yes: No Distress Eyes: Yes: WNL HENT: Yes: WNL Neck: Yes: WNL Cardiovascular: Yes: Regular Rate and Rhythm Respiratory: Yes: Diminished Gastrointestinal: Yes: Abdomen, Obese Genitourinary: Yes: Incontinence Musculoskeletal: Yes: Muscle Weakness Edema: No Integumentary: Yes: WNL Wound/Incision: Yes: Clean/Dry Neurological: Yes: Confusion ...Motor Strength: LLE, RLE Psychiatric: Yes: Other Labs: CBC, BMP 10/08/18 08:28 10/08/18 08:28 Problem List - Problems (1) Complicated UTI (urinary tract infection) Code(s): N39.0 - URINARY TRACT INFECTION, SITE NOT SPECIFIED (2) GARRISON (acute kidney injury) Code(s): N17.9 - ACUTE KIDNEY FAILURE, UNSPECIFIED (3) Acute metabolic encephalopathy Code(s): G93.41 - METABOLIC ENCEPHALOPATHY (4) Altered mental status Code(s): R41.82 - ALTERED MENTAL STATUS, UNSPECIFIED (5) BPH (benign prostatic hyperplasia) Code(s): N40.0 - BENIGN PROSTATIC HYPERPLASIA WITHOUT LOWER URINRY TRACT SYMP (6) CKD (chronic kidney disease) Code(s): N18.9 - CHRONIC KIDNEY DISEASE, UNSPECIFIED (7) Coronary artery disease Code(s): I25.10 - ATHSCL HEART DISEASE OF [place] CORONARY ARTERY W/O ANG PCTRS (8) Dementia Code(s): F03.90 - UNSPECIFIED DEMENTIA WITHOUT BEHAVIORAL DISTURBANCE (9) Diabetes Code(s): E11.9 - TYPE 2 DIABETES MELLITUS WITHOUT COMPLICATIONS (10) Hematuria Code(s): R31.9 - HEMATURIA, UNSPECIFIED (11) Hydronephrosis Code(s): N13.30 - UNSPECIFIED HYDRONEPHROSIS (12) NPH (normal pressure hydrocephalus) Code(s): G91.2 - (IDIOPATHIC) NORMAL PRESSURE HYDROCEPHALUS (13) Subdural hygroma Code(s): D18.1 - LYMPHANGIOMA, ANY SITE (14) Unsteady gait Code(s): R26.81 - UNSTEADINESS ON FEET (15) Weakness Code(s): R53.1 - WEAKNESS Assessment/Plan IV ABX PER ID AWAITING FINAL CULTURES STOP MYRBETRIC PT EVAL OOB TO CHAIR WITH ASSIST
[2018-10-09 08:23] LABS: ALBUMIN 3.1 g/dl (3.4-5.0); BILIRUBIN,TOTAL 0.3 mg/dL (0.2-1); CALCIUM 8.6 mg/dL (8.5-10.1); CREATININE 2.2 mg/dL (0.55-1.3); POTASSIUM 4.9 mmol/L (3.5-5.1); TOT PROT 5.9 g/dl (6.4-8.2)
[2018-10-09] MEDS: ESCITALOPRAM OXALATE 10 MG TABLET (FP) PO SCH (09:25)
[2018-10-09] MEDS: hydrALAZINE HCL 10 MG TABLET PO SCH ×2 (09:25→22:02)
[2018-10-09] MEDS: TAMSULOSIN HCL 0.4 MG CAP PO SCH (09:25)
[2018-10-09] MEDS: PANTOPRAZOLE 40 MG TABLET (FP) PO SCH (09:25)
[2018-10-09] MEDS: NEBIVOLOL 5 MG TABLET (FP) PO SCH (09:26)
[2018-10-09] MEDS: MEMANTINE HCL 5 MG TABLET (UD) PO SCH ×2 (09:26→22:02)
[2018-10-09] MEDS: SODIUM CHLORIDE 0.45% 1,000 ML IV SCH (10:16)
--- NOTE | 2018-10-09 12:32 | PN ---
Progress Note, Physician History of Present Illness: Pt seen and examined at bedside. He is awake and alert. He denies shortness of breath, fevers, or chills. - Current Medication List Current Medications: Active Medications Acetaminophen (Tylenol -) 650 mg PO Q6H PRN PRN Reason: PAIN LEVEL 1-5 Docusate Sodium (Colace -) 100 mg PO Q12H PRN PRN Reason: CONSTIPATION Escitalopram Oxalate (Lexapro -) 10 mg PO DAILY [facility] Last Admin: 10/09/18 09:25 Dose: 10 mg Hydralazine HCl (Apresoline -) 10 mg PO BID [facility] Last Admin: 10/09/18 09:25 Dose: 10 mg Meropenem 500 mg/ Dextrose 100 mls @ 200 mls/hr IVPB Q12H [facility] Last Admin: 10/09/18 04:43 Dose: 200 mls/hr Sodium Chloride (1/2 Normal Saline) 1,000 mls @ 75 mls/hr IV ASDIR [facility] Last Admin: 10/09/18 10:16 Dose: 75 mls/hr Memantine (Namenda -) 10 mg PO BID [facility] Last Admin: 10/09/18 09:26 Dose: 10 mg Nebivolol (Bystolic -) 5 mg PO DAILY [facility] Last Admin: 10/09/18 09:26 Dose: 5 mg Olanzapine (Zyprexa -) 5 mg PO [facility] Last Admin: 10/08/18 21:41 Dose: 5 mg Pantoprazole Sodium (Protonix -) 40 mg PO DAILY [facility] Last Admin: 10/09/18 09:25 Dose: 40 mg Rosuvastatin Calcium (Crestor -) 20 mg PO HS [facility] Last Admin: 10/08/18 21:40 Dose: 20 mg Tamsulosin HCl (Flomax -) 0.4 mg PO DAILY@0830 [facility] Last Admin: 10/09/18 09:25 Dose: 0.4 mg - Objective Vital Signs: Vital Signs Temperature 98.2 F 10/09/18 07:03 Pulse Rate 55 L 10/09/18 07:03 Respiratory Rate 18 10/09/18 07:03 Blood Pressure 150/70 10/09/18 07:03 O2 Sat by Pulse Oximetry (%) 97 10/08/18 21:00 Constitutional: Yes: Calm Eyes: Yes: Conjunctiva Clear HENT: Yes: Atraumatic Neck: Yes: Supple Cardiovascular: Yes: S1, S2 Respiratory: Yes: CTA Bilaterally Gastrointestinal: Yes: Soft Genitourinary: Yes: WNL Musculoskeletal: Yes: WNL Edema: Yes Edema: LLE: Trace, RLE: Trace Neurological: Yes: Oriented Psychiatric: Yes: Oriented Labs: CBC, BMP 10/08/18 08:28 10/09/18 07:15 Problem List - Problems (1) Complicated UTI (urinary tract infection) Code(s): N39.0 - URINARY TRACT INFECTION, SITE NOT SPECIFIED (2) GARRISON (acute kidney injury) Code(s): N17.9 - ACUTE KIDNEY FAILURE, UNSPECIFIED (3) CKD (chronic kidney disease) Code(s): N18.9 - CHRONIC KIDNEY DISEASE, UNSPECIFIED Assessment/Plan Current Medications Generic Name Dose Route Start Last Admin Trade Name Freq PRN Reason Stop Dose Admin Acetaminophen 650 mg 10/07/18 14:46 Tylenol - PO Q6H PRN PAIN LEVEL 1-5 Docusate Sodium 100 mg 10/07/18 14:46 Colace - PO Q12H PRN CONSTIPATION Escitalopram Oxalate 10 mg 10/08/18 10:00 10/09/18 09:25 Lexapro - PO 10 mg DAILY [facility] Administration Hydralazine HCl 10 mg 10/07/18 22:00 10/09/18 09:25 Apresoline - PO 10 mg BID [facility] Administration Meropenem 500 mg/ Dextrose 100 mls @ 200 mls/hr 10/07/18 16:45 10/09/18 04:43 IVPB 200 mls/hr Q12H [facility] Administration Sodium Chloride 1,000 mls @ 75 mls/hr 10/08/18 14:15 10/09/18 10:16 1/2 Normal Saline IV 75 mls/hr ASDIR [facility] Administration Memantine 10 mg 10/07/18 22:00 10/09/18 09:26 Namenda - PO 10 mg BID [facility] Administration Nebivolol 5 mg 10/08/18 10:00 10/09/18 09:26 Bystolic - PO 5 mg DAILY [facility] Administration Olanzapine 5 mg 10/07/18 22:00 10/08/18 21:41 Zyprexa - PO 5 mg HS [facility] Administration Pantoprazole Sodium 40 mg 10/08/18 10:00 10/09/18 09:25 Protonix - PO 40 mg DAILY [facility] Administration Rosuvastatin Calcium 20 mg 10/07/18 22:00 10/08/18 21:40 Crestor - PO 20 mg HS [facility] Administration Tamsulosin HCl 0.4 mg 10/08/18 08:30 10/09/18 09:25 Flomax - PO 0.4 mg DAILY@0830 [facility] Administration Impression 1. CKD 2. PKD 3. UTI 4. HTN 5. GARRISON 6. bilateral subdural hygromas 7. prostate cancer 8. dementia 9. hyperlipidemia Plan - renal function continues to improve - hold fluids and re-evaluate tomorrow - abx for UTI - appetite is improved along with mental status - low potassium diet - avoid nsaids
--- NOTE | 2018-10-09 15:05 | PN ---
Progress Note, Physician History of Present Illness: AWAKE IN BED CONFUSED OFFERS NO COMPLAINTS AFEBRILE WBC WNL AZOTEMIA IMPROVing URINE C/S PRELIM ENTEROCOCCUS - Current Medication List Current Medications: Active Medications Acetaminophen (Tylenol -) 650 mg PO Q6H PRN PRN Reason: PAIN LEVEL 1-5 Docusate Sodium (Colace -) 100 mg PO Q12H PRN PRN Reason: CONSTIPATION Escitalopram Oxalate (Lexapro -) 10 mg PO DAILY [facility] Last Admin: 10/09/18 09:25 Dose: 10 mg Hydralazine HCl (Apresoline -) 10 mg PO BID [facility] Last Admin: 10/09/18 09:25 Dose: 10 mg Meropenem 500 mg/ Dextrose 100 mls @ 200 mls/hr IVPB Q12H [facility] Last Admin: 10/09/18 04:43 Dose: 200 mls/hr Memantine (Namenda -) 10 mg PO BID [facility] Last Admin: 10/09/18 09:26 Dose: 10 mg Nebivolol (Bystolic -) 5 mg PO DAILY [facility] Last Admin: 10/09/18 09:26 Dose: 5 mg Olanzapine (Zyprexa -) 5 mg PO [facility] Last Admin: 10/08/18 21:41 Dose: 5 mg Pantoprazole Sodium (Protonix -) 40 mg PO DAILY [facility] Last Admin: 10/09/18 09:25 Dose: 40 mg Rosuvastatin Calcium (Crestor -) 20 mg PO HS [facility] Last Admin: 10/08/18 21:40 Dose: 20 mg Tamsulosin HCl (Flomax -) 0.4 mg PO DAILY@0830 [facility] Last Admin: 10/09/18 09:25 Dose: 0.4 mg - Objective Vital Signs: Vital Signs Temperature 98.2 F 10/09/18 07:03 Pulse Rate 55 L 10/09/18 07:03 Respiratory Rate 18 10/09/18 07:03 Blood Pressure 150/70 10/09/18 07:03 O2 Sat by Pulse Oximetry (%) 97 10/08/18 21:00 Constitutional: Yes: No Distress Cardiovascular: Yes: Regular Rate and Rhythm, S1, S2 Respiratory: Yes: CTA Bilaterally Gastrointestinal: Yes: Normal Bowel Sounds, Soft. No: Tenderness Labs: CBC, BMP 10/08/18 08:28 10/09/18 07:15 Assessment/Plan RECURRENT UTI/ HX MDR ACINETOBACTER HEMATURIA CKD AWAIT C/S CONTINUE EMPIRIC MEROPENEM CONTACT PRECAUTIONS
--- NOTE | 2018-10-09 16:14 | PN ---
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 PLAN IVF ABX PER ID MONITOR LYTES,RENAL FUNCTION O2 NEEDED DR CASTILLO Problem List - Problems (1) Acute on chronic kidney failure Code(s): N17.9 - ACUTE KIDNEY FAILURE, UNSPECIFIED; N18.9 - CHRONIC KIDNEY DISEASE, UNSPECIFIED (2) Complicated UTI (urinary tract infection) Code(s): N39.0 - URINARY TRACT INFECTION, SITE NOT SPECIFIED (3) Acute metabolic encephalopathy Code(s): G93.41 - METABOLIC ENCEPHALOPATHY (4) Altered mental status Code(s): R41.82 - ALTERED MENTAL STATUS, UNSPECIFIED (5) CKD (chronic kidney disease) Code(s): N18.9 - CHRONIC KIDNEY DISEASE, UNSPECIFIED (6) Coronary artery disease Code(s): I25.10 - ATHSCL HEART DISEASE OF [place] CORONARY ARTERY W/O ANG PCTRS (7) Dementia Code(s): F03.90 - UNSPECIFIED DEMENTIA WITHOUT BEHAVIORAL DISTURBANCE (8) NPH (normal pressure hydrocephalus) Code(s): G91.2 - (IDIOPATHIC) NORMAL PRESSURE HYDROCEPHALUS (9) Prostate cancer Code(s): C61 - MALIGNANT NEOPLASM OF PROSTATE
--- NOTE | 2018-10-09 18:12 | CONS ---
PULMONARY CONSULTATION DATE OF CONSULTATION: 10/09/2018 REFERRING PHYSICIAN: Natalya Rae MD History is obtained from patient's and medical records. Patient has dementia. The patient is an 87-year-old white male with a past medical history of dementia, hydrocephalus status post SOFTWARE TEST ENGINEER shunt, prostate CA status post seed implant, hypertension, hyperlipidemia, polycystic kidney disease with chronic kidney disease, solitary kidney; admitted to with increasing somnolence associated with hematuria x1 week prior to admission. He was also noted to be diaphoretic and had subjective fevers. Apparently, he was given intravenous antibiotics at home for approximately 1 week with no significant improvement. Patient was sent in by Dr. Rae for admission secondary to UTI resistant to multiple antibiotics. Patient on admission was started on IV fluids. He was also evaluated by Dr. Moser for Infectious Disease and placed on broad-spectrum antibiotics which include meropenem. During hospitalization, he remained lethargic, but has continued to slowly improve. Patient was also evaluated by Dr. Parra for renal consultation, who felt that the patient had [id number] kidney injury; recommended to continue antibiotics and IV fluids. Patient has a remote history of smoking 50 years ago. 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 There is no history of recent travel. There is no history of DVT or PE in the past. PAST MEDICAL HISTORY: Again includes chronic kidney disease, polycystic kidney disease, recurrent multi-drug resistant UTIs, hydrocephalus status post SOFTWARE TEST ENGINEER shunt, dementia, hypertension, ASHD, gout, and history of coronary artery bypass graft. CURRENT MEDICATIONS: Include Flomax, Tylenol, meropenem, Lexapro, Zyprexa, Bystolic, Namenda, Apresoline, Crestor, and Protonix. REVIEW OF SYSTEMS: No orthopnea. No PND. No shortness of breath at this time. No cough. No chest pain. No palpitations. No abdominal pain. PHYSICAL EXAMINATION: General: The patient is a well-developed, well-nourished male, currently awake and alert, in no acute distress. Vital Signs: He is currently afebrile. Blood pressure is 178/70. Respiratory rate is 20, and O2 saturation is 95% on room air. HEENT: Normocephalic, atraumatic. Neck: Supple. Heart: Regular. S1, S2. Chest: Clear. Abdomen: Soft. Bowel sounds are positive. Extremities: No cyanosis or edema. LABORATORY DATA: WBC is 8.1, hemoglobin 13.2, hematocrit 41, platelet count 145,000. INR is 0.97. BUN 45, creatinine 2.2. Chest x-ray: No infiltrates. No effusions. IMPRESSION: 1. Recurrent urinary tract infections, enterococcus. 2. Ggfug-[id number] kidney disease. 3. Hematuria. 4. Hydrocephalus status post ventriculoperitoneal shunt. 5. Atherosclerotic heart disease status post coronary artery bypass graft. 6. History of prostate cancer status post seed implantation. 7. Hypertension. 8. Hyperlipidemia. 9. Polycystic kidney disease. 10. Dementia. PLAN: Continue IV antibiotics as per Infectious Disease, supplemental O2 as needed, IV fluids, monitor renal function, monitor electrolytes. Will follow with you. BRENNAN CASTILLO M.D. [id number]
[2018-10-09] MEDS: OLANZapine 5 MG TABLET PO SCH (22:02)
[2018-10-09] MEDS: ROSUVASTATIN CA 20 MG TABLET (FP) PO SCH (22:02)
[2018-10-10] MEDS: MEROPENEM 500 MG in DEXTROSE 5%-WATER 100 ML IVPB SCH ×2 (04:42→16:59)
[2018-10-10 08:40] LABS: CALCIUM 8.9 mg/dL (8.5-10.1); CREATININE 2.2 mg/dL (0.55-1.3); POTASSIUM 5.3 mmol/L (3.5-5.1)
[2018-10-10] MEDS ORDERED: PT OWN MED DRAWER 7, Y5N ONE ×2 (09:55→20:59)
[2018-10-10] MEDS: TAMSULOSIN HCL 0.4 MG CAP PO SCH (10:02)
[2018-10-10] MEDS: MEMANTINE HCL 5 MG TABLET (UD) PO SCH ×2 (10:02→21:55)
[2018-10-10] MEDS: PANTOPRAZOLE 40 MG TABLET (FP) PO SCH (10:02)
[2018-10-10] MEDS: hydrALAZINE HCL 10 MG TABLET PO SCH ×2 (10:02→21:54)
[2018-10-10] MEDS: ESCITALOPRAM OXALATE 10 MG TABLET (FP) PO SCH (10:02)
[2018-10-10] MEDS: NEBIVOLOL 5 MG TABLET (FP) PO SCH (10:03)
--- NOTE | 2018-10-10 10:41 | PN ---
Progress Note, Physician History of Present Illness: AWAKE IN BED CONFUSED OFFERS NO COMPLAINTS AFEBRILE WBC WNL AZOTEMIA IMPROVing URINE C/S ENTEROCOCCUS SENSI PENDING - Current Medication List Current Medications: Active Medications Acetaminophen (Tylenol -) 650 mg PO Q6H PRN PRN Reason: PAIN LEVEL 1-5 Docusate Sodium (Colace -) 100 mg PO Q12H PRN PRN Reason: CONSTIPATION Escitalopram Oxalate (Lexapro -) 10 mg PO DAILY [facility] Last Admin: 10/10/18 10:02 Dose: 10 mg Hydralazine HCl (Apresoline -) 10 mg PO BID [facility] Last Admin: 10/10/18 10:02 Dose: 10 mg Meropenem 500 mg/ Dextrose 100 mls @ 200 mls/hr IVPB Q12H [facility] Last Admin: 10/10/18 04:42 Dose: 200 mls/hr Memantine (Namenda -) 10 mg PO BID [facility] Last Admin: 10/10/18 10:02 Dose: 10 mg Nebivolol (Bystolic -) 5 mg PO DAILY [facility] Last Admin: 10/10/18 10:03 Dose: 5 mg Olanzapine (Zyprexa -) 5 mg PO [facility] Last Admin: 10/09/18 22:02 Dose: 5 mg Pantoprazole Sodium (Protonix -) 40 mg PO DAILY [facility] Last Admin: 10/10/18 10:02 Dose: 40 mg Rosuvastatin Calcium (Crestor -) 20 mg PO [facility] Last Admin: 10/09/18 22:02 Dose: 20 mg Sodium Zirconium Cyclosilicate (Lokelma) 10 gm PO ONCE ONE Stop: 10/10/18 12:01 Tamsulosin HCl (Flomax -) 0.4 mg PO DAILY@0830 [facility] Last Admin: 10/10/18 10:02 Dose: 0.4 mg - Objective Vital Signs: Vital Signs Temperature 98.3 F 10/10/18 10:05 Pulse Rate 53 L 10/10/18 10:05 Respiratory Rate 20 10/10/18 10:05 Blood Pressure 174/69 H 10/10/18 10:05 O2 Sat by Pulse Oximetry (%) 97 10/09/18 21:00 Constitutional: Yes: No Distress Cardiovascular: Yes: Regular Rate and Rhythm, S1, S2 Respiratory: Yes: CTA Bilaterally Gastrointestinal: Yes: Normal Bowel Sounds, Soft. No: Tenderness Edema: No Labs: CBC, BMP 10/08/18 08:28 10/10/18 07:38 Assessment/Plan RECURRENT UTI/ HX MDR ACINETOBACTER HEMATURIA CKD CR IMPROVED AWAIT FINAL C/S SWITCH TO PO BASED ON FINAL C/S CONTACT PRECAUTIONS
--- NOTE | 2018-10-10 10:47 | PN ---
Progress Note (short form) - Note Progress Note: PULMONARY Denies shortness of breath, cough or wheezing. No fevers or chills. Vital Signs Period Temp Pulse Resp BP Sys/Handy Pulse Ox Last 24 Hr 97.6 F-98.3 F 51-53 20-20 124-183/69-76 97 Gen: NAD at rest Heart: RRR Lung: decreased breath sounds at the bases Abd: soft, nontender Ext: no edema CBC, BMP 10/08/18 08:28 10/10/18 07:38 Active Medications Acetaminophen (Tylenol -) 650 mg PO Q6H PRN PRN Reason: PAIN LEVEL 1-5 Docusate Sodium (Colace -) 100 mg PO Q12H PRN PRN Reason: CONSTIPATION Escitalopram Oxalate (Lexapro -) 10 mg PO DAILY [facility] Last Admin: 10/10/18 10:02 Dose: 10 mg Hydralazine HCl (Apresoline -) 10 mg PO BID [facility] Last Admin: 10/10/18 10:02 Dose: 10 mg Meropenem 500 mg/ Dextrose 100 mls @ 200 mls/hr IVPB Q12H [facility] Last Admin: 10/10/18 04:42 Dose: 200 mls/hr Memantine (Namenda -) 10 mg PO BID [facility] Last Admin: 10/10/18 10:02 Dose: 10 mg Nebivolol (Bystolic -) 5 mg PO DAILY [facility] Last Admin: 10/10/18 10:03 Dose: 5 mg Olanzapine (Zyprexa -) 5 mg PO HS [facility] Last Admin: 10/09/18 22:02 Dose: 5 mg Pantoprazole Sodium (Protonix -) 40 mg PO DAILY [facility] Last Admin: 10/10/18 10:02 Dose: 40 mg Rosuvastatin Calcium (Crestor -) 20 mg PO HS [facility] Last Admin: 10/09/18 22:02 Dose: 20 mg Sodium Zirconium Cyclosilicate (Lokelma) 10 gm PO ONCE ONE Stop: 10/10/18 12:01 Tamsulosin HCl (Flomax -) 0.4 mg PO DAILY@0830 [facility] Last Admin: 10/10/18 10:02 Dose: 0.4 mg A/P UTI Altered Mental Status improved CAD s/p CABG Acute on Chronic Renal Failure Polycystic Kidney Disease h/o Prostate Ca Hydrocephalus 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
[2018-10-10] MEDS ORDERED: SODIUM ZIRCONIUM CYCLOSILICATE (LOKELMA) 5 GM PACKET PO ONE (12:00)
--- NOTE | 2018-10-10 12:51 | PN ---
Progress Note, Physician Chief Complaint: UTI CKD Dementia History of Present Illness: Previous notes and events reviewed awake and alert NAD denies complaints of chest pain or SOB complain of middle back pain UC prelim positive states his hearing is worsening - Current Medication List Current Medications: Active Medications Acetaminophen (Tylenol -) 650 mg PO Q6H PRN PRN Reason: PAIN LEVEL 1-5 Docusate Sodium (Colace -) 100 mg PO Q12H PRN PRN Reason: CONSTIPATION Escitalopram Oxalate (Lexapro -) 10 mg PO DAILY [facility] Last Admin: 10/10/18 10:02 Dose: 10 mg Hydralazine HCl (Apresoline -) 10 mg PO BID [facility] Last Admin: 10/10/18 10:02 Dose: 10 mg Meropenem 500 mg/ Dextrose 100 mls @ 200 mls/hr IVPB Q12H [facility] Last Admin: 10/10/18 04:42 Dose: 200 mls/hr Memantine (Namenda -) 10 mg PO BID [facility] Last Admin: 10/10/18 10:02 Dose: 10 mg Nebivolol (Bystolic -) 5 mg PO DAILY [facility] Last Admin: 10/10/18 10:03 Dose: 5 mg Olanzapine (Zyprexa -) 5 mg PO HS [facility] Last Admin: 10/09/18 22:02 Dose: 5 mg Pantoprazole Sodium (Protonix -) 40 mg PO DAILY [facility] Last Admin: 10/10/18 10:02 Dose: 40 mg Rosuvastatin Calcium (Crestor -) 20 mg PO HS [facility] Last Admin: 10/09/18 22:02 Dose: 20 mg Tamsulosin HCl (Flomax -) 0.4 mg PO DAILY@0830 [facility] Last Admin: 10/10/18 10:02 Dose: 0.4 mg - Objective Vital Signs: Vital Signs Temperature 98.3 F 10/10/18 10:05 Pulse Rate 53 L 10/10/18 10:05 Respiratory Rate 20 10/10/18 10:05 Blood Pressure 174/69 H 10/10/18 10:05 O2 Sat by Pulse Oximetry (%) 97 10/09/18 21:00 Constitutional: Yes: No Distress, Calm Eyes: Yes: Conjunctiva Clear HENT: Yes: Atraumatic Cardiovascular: Yes: Regular Rate and Rhythm Respiratory: Yes: Regular, CTA Bilaterally Gastrointestinal: Yes: Normal Bowel Sounds, Soft, Abdomen, Obese Genitourinary: Yes: Incontinence Musculoskeletal: Yes: Muscle Weakness Extremities: Yes: WNL Edema: No Neurological: Yes: Alert, Pre-Existing Deficit Psychiatric: Yes: Alert Labs: CBC, BMP 10/08/18 08:28 10/10/18 07:38 Microbiology 10/07/18 14:15 Urine - Urine - Catheterized Urine Culture - Final Enterococcus Faecalis 10/07/18 21:00 Blood - Peripheral Venous Blood Culture - Preliminary NO GROWTH OBTAINED AFTER 48 HOURS, INCUBATION TO CONTINUE FOR 3 DAYS. Problem List - Problems (1) Acute on chronic kidney failure Assessment/Plan: -Renal on board -BUN/Cr 45/2.0 -monitor renal function daily Code(s): N17.9 - ACUTE KIDNEY FAILURE, UNSPECIFIED; N18.9 - CHRONIC KIDNEY DISEASE, UNSPECIFIED (2) Complicated UTI (urinary tract infection) Assessment/Plan: -UA shows 3+ Leuks, 2+ blood -UC prelim positive -ID on board -Meropenem -afebrile -no leukocytosis Code(s): N39.0 - URINARY TRACT INFECTION, SITE NOT SPECIFIED (3) BPH (benign prostatic hyperplasia) Assessment/Plan: -Tamsulosin Code(s): N40.0 - BENIGN PROSTATIC HYPERPLASIA WITHOUT LOWER URINRY TRACT SYMP (4) Dementia Assessment/Plan: -Memantine Code(s): F03.90 - UNSPECIFIED DEMENTIA WITHOUT BEHAVIORAL DISTURBANCE (5) Hypertension Assessment/Plan: -Bystolic -low Na diet Code(s): I10 - ESSENTIAL (PRIMARY) HYPERTENSION Qualifiers: (6) Difficulty hearing Assessment/Plan: -will refer to pattern scratcher on discharge -avoid ototoxic drugs Code(s): H91.90 - UNSPECIFIED HEARING LOSS, UNSPECIFIED EAR Assessment/Plan see problem list dvt ppx
[2018-10-10 13:30] LABS: HEMATOCRIT 40.3 % (35.4-49); MCHC 32.3 g/dl (32.0-35.9); MEAN CELL VOLUME 77.4 fl (80-96); MEAN PLT VOLUME 9.9 fl (7.5-11.1); PLATELET COUNT 146 K/MM3 (134-434); RBC 5.21 M/mm3 (4.00-5.60); RDW 14.7 % (11.9-15.9); WHITE BLOOD COUNT 6.7 K/mm3 (4.0-10.0)
--- NOTE | 2018-10-10 15:09 | PN ---
Progress Note, Physician History of Present Illness: Pt seen and examined at bedside. He is awake and appears comfortable. - Current Medication List Current Medications: Active Medications Acetaminophen (Tylenol -) 650 mg PO Q6H PRN PRN Reason: PAIN LEVEL 1-5 Docusate Sodium (Colace -) 100 mg PO Q12H PRN PRN Reason: CONSTIPATION Escitalopram Oxalate (Lexapro -) 10 mg PO DAILY [facility] Last Admin: 10/10/18 10:02 Dose: 10 mg Hydralazine HCl (Apresoline -) 10 mg PO BID [facility] Last Admin: 10/10/18 10:02 Dose: 10 mg Meropenem 500 mg/ Dextrose 100 mls @ 200 mls/hr IVPB Q12H [facility] Last Admin: 10/10/18 04:42 Dose: 200 mls/hr Lidocaine (Lidoderm Patch -) 1 patch TP DAILY [facility] Memantine (Namenda -) 10 mg PO BID [facility] Last Admin: 10/10/18 10:02 Dose: 10 mg Miscellaneous (Lidoderm Patch Removal) 1 each MC DAILY@2200 [facility] Nebivolol (Bystolic -) 5 mg PO DAILY [facility] Last Admin: 10/10/18 10:03 Dose: 5 mg Olanzapine (Zyprexa -) 5 mg PO [facility] Last Admin: 10/09/18 22:02 Dose: 5 mg Pantoprazole Sodium (Protonix -) 40 mg PO DAILY [facility] Last Admin: 10/10/18 10:02 Dose: 40 mg Rosuvastatin Calcium (Crestor -) 20 mg PO [facility] Last Admin: 10/09/18 22:02 Dose: 20 mg Tamsulosin HCl (Flomax -) 0.4 mg PO DAILY@0830 [facility] Last Admin: 10/10/18 10:02 Dose: 0.4 mg - Objective Vital Signs: Vital Signs Temperature 98.3 F 10/10/18 10:05 Pulse Rate 53 L 10/10/18 10:05 Respiratory Rate 20 10/10/18 10:05 Blood Pressure 174/69 H 10/10/18 10:05 O2 Sat by Pulse Oximetry (%) 97 10/09/18 21:00 Constitutional: Yes: Calm Eyes: Yes: Conjunctiva Clear HENT: Yes: Atraumatic Neck: Yes: Supple Cardiovascular: Yes: S1, S2 Respiratory: Yes: CTA Bilaterally Gastrointestinal: Yes: Normal Bowel Sounds, Soft Genitourinary: Yes: Incontinence Musculoskeletal: Yes: WNL Edema: No Neurological: Yes: Oriented Labs: CBC, BMP 10/10/18 12:06 10/10/18 07:38 Problem List - Problems (1) Complicated UTI (urinary tract infection) Code(s): N39.0 - URINARY TRACT INFECTION, SITE NOT SPECIFIED (2) GARRISON (acute kidney injury) Code(s): N17.9 - ACUTE KIDNEY FAILURE, UNSPECIFIED (3) CKD (chronic kidney disease) Code(s): N18.9 - CHRONIC KIDNEY DISEASE, UNSPECIFIED Assessment/Plan Current Medications Generic Name Dose Route Start Last Admin Trade Name Freq PRN Reason Stop Dose Admin Acetaminophen 650 mg 10/07/18 14:46 Tylenol - PO Q6H PRN PAIN LEVEL 1-5 Docusate Sodium 100 mg 10/07/18 14:46 Colace - PO Q12H PRN CONSTIPATION Escitalopram Oxalate 10 mg 10/08/18 10:00 10/10/18 10:02 Lexapro - PO 10 mg DAILY [facility] Administration Hydralazine HCl 10 mg 10/07/18 22:00 10/10/18 10:02 Apresoline - PO 10 mg BID [facility] Administration Meropenem 500 mg/ Dextrose 100 mls @ 200 mls/hr 10/07/18 16:45 10/10/18 04:42 IVPB 200 mls/hr Q12H [facility] Administration Lidocaine 1 patch 10/10/18 14:15 Lidoderm Patch - TP DAILY [facility] Memantine 10 mg 10/07/18 22:00 10/10/18 10:02 Namenda - PO 10 mg BID [facility] Administration Miscellaneous 1 each 10/10/18 22:00 Lidoderm Patch Removal [facility] DAILY@2200 [facility] Nebivolol 5 mg 10/08/18 10:00 10/10/18 10:03 Bystolic - PO 5 mg DAILY [facility] Administration Olanzapine 5 mg 10/07/18 22:00 10/09/18 22:02 Zyprexa - PO 5 mg HS [facility] Administration Pantoprazole Sodium 40 mg 10/08/18 10:00 10/10/18 10:02 Protonix - PO 40 mg DAILY [facility] Administration Rosuvastatin Calcium 20 mg 10/07/18 22:00 10/09/18 22:02 Crestor - PO 20 mg HS [facility] Administration Tamsulosin HCl 0.4 mg 10/08/18 08:30 10/10/18 10:02 Flomax - PO 0.4 mg DAILY@0830 [facility] Administration Impression 1. CKD 2. PKD 3. UTI 4. HTN 5. GARRISON 6. bilateral subdural hygromas 7. prostate cancer 8. dementia 9. hyperlipidemia Plan - renal function stable - lokelma for potassium - low potassium diet - abx for UTI - appetite is improved along with mental status - low potassium diet - avoid nsaids
[2018-10-10] MEDS: LIDOCAINE 5% TOPICAL PATCH TP SCH (16:59)
[2018-10-10] MEDS: OLANZapine 5 MG TABLET PO SCH (21:54)
[2018-10-10] MEDS: ROSUVASTATIN CA 20 MG TABLET (FP) PO SCH (21:54)
[2018-10-10] MEDS ORDERED: LIDOCAINE PATCH REMOVAL MC SCH (22:00)
[2018-10-11] MEDS ORDERED: PT OWN MED DRAWER 7, Y5N ONE ×2 (02:31→09:28)
[2018-10-11] MEDS: MEROPENEM 500 MG in DEXTROSE 5%-WATER 100 ML IVPB SCH (04:30)
[2018-10-11 07:48] LABS: HEMATOCRIT 38.4 % (35.4-49); HEMOGLOBIN 12.4 GM/dL (11.7-16.9); MCH 24.8 pg (25.7-33.7); MCHC 32.3 g/dl (32.0-35.9); MEAN CELL VOLUME 76.9 fl (80-96); MEAN PLT VOLUME 9.8 fl (7.5-11.1); RDW 14.9 % (11.9-15.9); WHITE BLOOD COUNT 7.5 K/mm3 (4.0-10.0)
[2018-10-11 08:09] LABS: ALBUMIN 3.1 g/dl (3.4-5.0); BILIRUBIN,TOTAL 0.4 mg/dL (0.2-1); BLOOD UREA NITROGEN 48.8 mg/dL (7-18); CALCIUM 8.5 mg/dL (8.5-10.1); CREATININE 2.3 mg/dL (0.55-1.3); POTASSIUM 4.6 mmol/L (3.5-5.1)
[2018-10-11 08:31] LABS: PLATELET COUNT 144 K/MM3 (134-434)
[2018-10-11] MEDS: PANTOPRAZOLE 40 MG TABLET (FP) PO SCH (09:31)
[2018-10-11] MEDS: LIDOCAINE 5% TOPICAL PATCH TP SCH (09:31)
[2018-10-11] MEDS: MEMANTINE HCL 5 MG TABLET (UD) PO SCH (09:32)
[2018-10-11] MEDS: NEBIVOLOL 5 MG TABLET (FP) PO SCH (09:32)
[2018-10-11] MEDS: TAMSULOSIN HCL 0.4 MG CAP PO SCH (09:32)
[2018-10-11] MEDS: ESCITALOPRAM OXALATE 10 MG TABLET (FP) PO SCH (09:32)
[2018-10-11] MEDS: hydrALAZINE HCL 10 MG TABLET PO SCH (09:32)
[2018-10-11 11:20] VITALS: BP 156/69; PULSE 52; TEMP 97.9
--- NOTE | 2018-10-11 12:05 | PN ---
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 CONFUSED OFFERS NO COMPLAINTS AFEBRILE WBC WNL AZOTEMIA IMPROVED URINE C/S ENTEROCOCCUS - Current Medication List Current Medications: Active Medications Acetaminophen (Tylenol -) 650 mg PO Q6H PRN PRN Reason: PAIN LEVEL 1-5 Docusate Sodium (Colace -) 100 mg PO Q12H PRN PRN Reason: CONSTIPATION Escitalopram Oxalate (Lexapro -) 10 mg PO DAILY [facility] Last Admin: 10/11/18 09:32 Dose: 10 mg Hydralazine HCl (Apresoline -) 10 mg PO BID [facility] Last Admin: 10/11/18 09:32 Dose: 10 mg Meropenem 500 mg/ Dextrose 100 mls @ 200 mls/hr IVPB Q12H [facility] Last Admin: 10/11/18 04:30 Dose: 200 mls/hr Lidocaine (Lidoderm Patch -) 1 patch TP DAILY [facility] Last Admin: 10/11/18 09:31 Dose: 1 patch Memantine (Namenda -) 10 mg PO BID [facility] Last Admin: 10/11/18 09:32 Dose: 10 mg Miscellaneous (Lidoderm Patch Removal) 1 each MC DAILY@2200 [facility] Last Admin: 10/10/18 21:54 Dose: 1 each Nebivolol (Bystolic -) 5 mg PO DAILY [facility] Last Admin: 10/11/18 09:32 Dose: 5 mg Olanzapine (Zyprexa -) 5 mg PO [facility] Last Admin: 10/10/18 21:54 Dose: 5 mg Pantoprazole Sodium (Protonix -) 40 mg PO DAILY [facility] Last Admin: 10/11/18 09:31 Dose: 40 mg Rosuvastatin Calcium (Crestor -) 20 mg PO [facility] Last Admin: 10/10/18 21:54 Dose: 20 mg Tamsulosin HCl (Flomax -) 0.4 mg PO DAILY@0830 [facility] Last Admin: 10/11/18 09:32 Dose: 0.4 mg - Objective Vital Signs: Vital Signs Temperature 97.9 F 10/11/18 10:00 Pulse Rate 52 L 10/11/18 10:00 Respiratory Rate 20 10/11/18 10:00 Blood Pressure 156/69 10/11/18 10:00 O2 Sat by Pulse Oximetry (%) 97 10/10/18 21:00 Constitutional: Yes: No Distress Eyes: Yes: Conjunctiva Clear Cardiovascular: Yes: Regular Rate and Rhythm, S1, S2 Respiratory: Yes: CTA Bilaterally Gastrointestinal: Yes: Normal Bowel Sounds, Soft. No: Tenderness Labs: CBC, BMP 10/11/18 07:11 10/11/18 07:11 Assessment/Plan RECURRENT UTI/ HX MDR ACINETOBACTER HEMATURIA CKD CR IMPROVED SWITCH TO PO AMOXICILLIN 500MG BID X7D
[2018-10-11] MEDS ORDERED: AMOXICILLIN 500 MG CAPSULE (FP) PO SCH (12:15)
--- NOTE | 2018-10-11 13:34 | DS ---
Physical Examination Vital Signs: Vital Signs Temperature 97.9 F 10/11/18 10:00 Pulse Rate 52 L 10/11/18 10:00 Respiratory Rate 20 10/11/18 10:00 Blood Pressure 156/69 10/11/18 10:00 O2 Sat by Pulse Oximetry (%) 97 10/10/18 21:00 Findings/Remarks: Patient is an 87 y/o male that was referred to ER by PMD for multidrug resistant UTI. Patient says that patient has been sleeping more frequently than usual and developed persistent hematuria. Constitutional: Yes: No Distress, Calm Eyes: Yes: Conjunctiva Clear HENT: Yes: Atraumatic Cardiovascular: Yes: Regular Rate and Rhythm Respiratory: Yes: Regular, CTA Bilaterally Gastrointestinal: Yes: Normal Bowel Sounds, Soft Renal/: Yes: Incontinence Musculoskeletal: Yes: Muscle Weakness Extremities: Yes: WNL Edema: Yes (minor R hand swelling) Neurological: Yes: Alert, Pre-Existing Deficit Psychiatric: Yes: Alert Labs: CBC, BMP 10/11/18 07:11 10/11/18 07:11 Discharge Summary Reason For Visit: UTI Current Active Problems Acute on chronic kidney failure (Acute) Complicated UTI (urinary tract infection) (Acute) Difficulty hearing (Acute) Hospital Course: see progress notes Laboratory Tests 10/07/18 10/07/18 10/07/18 14:15 14:15 14:15 WBC 8.0 RBC 4.90 Hgb 12.2 Hct 38.1 MCV 77.7 L MCH 24.9 L MCHC 32.1 RDW 14.7 Plt Count 157 MPV 9.9 Absolute Neuts (auto) 4.3 Neutrophils % 53.6 Lymphocytes % 32.1 Monocytes % 9.2 Eosinophils % 4.2 Basophils % 0.9 Nucleated RBC % 0 Sodium 143 Potassium 4.8 Chloride 112 H Carbon Dioxide 25 Anion Gap 5 L BUN 61.0 H Creatinine 2.9 H Est GFR (CKD-EPI)AfAm 21.86 Est GFR (CKD-EPI)NonAf 18.86 Random Glucose 128 H Hemoglobin A1c % Calcium 8.7 Phosphorus Magnesium Total Bilirubin 0.2 AST 18 ALT 20 Alkaline Phosphatase 90 Total Protein 6.5 Albumin 3.5 Triglycerides Cholesterol Total LDL Cholesterol HDL Cholesterol TSH Urine Color Yellow Urine Appearance Turbid Urine pH 5.5 Ur Specific [place] 1.015 Urine Protein 3+ H Urine Glucose (UA) Negative Urine Ketones Negative Urine Blood 2+ H Urine Nitrite Negative Urine Bilirubin Negative Urine Urobilinogen 0.2 Ur Leukocyte Esterase 3+ H Urine WBC (Auto) 3457 Urine Casts (Auto) 12 U Epithel Cells (Auto) 10.1 Urine Bacteria (Auto) 2232.6 10/08/18 10/08/18 10/08/18 08:28 08:28 08:28 WBC 8.1 RBC 5.28 Hgb 13.2 Hct 41.0 MCV 77.7 L MCH 25.0 L MCHC 32.2 RDW 14.8 Plt Count 145 MPV 9.8 Absolute Neuts (auto) 4.5 Neutrophils % 55.6 Lymphocytes % 31.2 Monocytes % 8.1 Eosinophils % 4.6 H Basophils % 0.5 Nucleated RBC % 0 Sodium 143 Potassium 5.0 Chloride 113 H Carbon Dioxide 26 Anion Gap 4 L BUN 51.7 H Creatinine 2.5 H Est GFR (CKD-EPI)AfAm 26.15 Est GFR (CKD-EPI)NonAf 22.57 Random Glucose 95 Hemoglobin A1c % 5.8 Calcium 8.8 Phosphorus 4.3 Magnesium 2.1 Total Bilirubin 0.3 AST 17 ALT 21 Alkaline Phosphatase 95 Total Protein 6.7 Albumin 3.4 Triglycerides 248 H Cholesterol 172 Total LDL Cholesterol 100 HDL Cholesterol 32 L TSH 1.39 D Urine Color Urine Appearance Urine pH Ur Specific [place] Urine Protein Urine Glucose (UA) Urine Ketones Urine Blood Urine Nitrite Urine Bilirubin Urine Urobilinogen Ur Leukocyte Esterase Urine WBC (Auto) Urine Casts (Auto) U Epithel Cells (Auto) Urine Bacteria (Auto) 10/09/18 10/10/18 10/10/18 07:15 07:38 12:06 WBC 6.7 RBC 5.21 Hgb 13.0 Hct 40.3 MCV 77.4 L MCH 25.0 L MCHC 32.3 RDW 14.7 Plt Count 146 MPV 9.9 Absolute Neuts (auto) Neutrophils % Lymphocytes % Monocytes % Eosinophils % Basophils % Nucleated RBC % Sodium 141 144 Potassium 4.9 5.3 H Chloride 110 H 110 H Carbon Dioxide 28 29 Anion Gap 3 L 5 L BUN 45.0 H 45.0 H Creatinine 2.2 H 2.2 H Est GFR (CKD-EPI)AfAm 30.53 30.53 Est GFR (CKD-EPI)NonAf 26.34 26.34 Random Glucose 88 90 Hemoglobin A1c % Calcium 8.6 8.9 Phosphorus Magnesium Total Bilirubin 0.3 AST 14 L ALT 17 Alkaline Phosphatase 88 Total Protein 5.9 L Albumin 3.1 L Triglycerides Cholesterol Total LDL Cholesterol HDL Cholesterol TSH Urine Color Urine Appearance Urine pH Ur Specific [place] Urine Protein Urine Glucose (UA) Urine Ketones Urine Blood Urine Nitrite Urine Bilirubin Urine Urobilinogen Ur Leukocyte Esterase Urine WBC (Auto) Urine Casts (Auto) U Epithel Cells (Auto) Urine Bacteria (Auto) 10/11/18 10/11/18 07:11 07:11 WBC 7.5 RBC 5.00 Hgb 12.4 Hct 38.4 MCV 76.9 L MCH 24.8 L MCHC 32.3 RDW 14.9 Plt Count 144 MPV 9.8 Absolute Neuts (auto) Neutrophils % Lymphocytes % Monocytes % Eosinophils % Basophils % Nucleated RBC % Sodium 143 Potassium 4.6 Chloride 110 H Carbon Dioxide 28 Anion Gap 5 L BUN 48.8 H Creatinine 2.3 H Est GFR (CKD-EPI)AfAm 28.93 Est GFR (CKD-EPI)NonAf 24.96 Random Glucose 88 Hemoglobin A1c % Calcium 8.5 Phosphorus Magnesium Total Bilirubin 0.4 AST 20 ALT 20 Alkaline Phosphatase 87 Total Protein 6.0 L Albumin 3.1 L Triglycerides Cholesterol Total LDL Cholesterol HDL Cholesterol TSH Urine Color Urine Appearance Urine pH Ur Specific [place] Urine Protein Urine Glucose (UA) Urine Ketones Urine Blood Urine Nitrite Urine Bilirubin Urine Urobilinogen Ur Leukocyte Esterase Urine WBC (Auto) Urine Casts (Auto) U Epithel Cells (Auto) Urine Bacteria (Auto) Active Medications Generic Name Dose Route Start Last Admin Trade Name Freq PRN Reason Stop Dose Admin Acetaminophen 650 mg 10/07/18 14:46 Tylenol - PO Q6H PRN PAIN LEVEL 1-5 Amoxicillin 500 mg 10/11/18 12:15 Amoxicillin - PO BID [facility] Docusate Sodium 100 mg 10/07/18 14:46 Colace - PO Q12H PRN CONSTIPATION Escitalopram Oxalate 10 mg 10/08/18 10:00 10/11/18 09:32 Lexapro - PO 10 mg DAILY [facility] Administration Hydralazine HCl 10 mg 10/07/18 22:00 10/11/18 09:32 Apresoline - PO 10 mg BID [facility] Administration Lidocaine 1 patch 10/10/18 14:15 10/11/18 09:31 Lidoderm Patch - TP 1 patch DAILY [facility] Administration Memantine 10 mg 10/07/18 22:00 10/11/18 09:32 Namenda - PO 10 mg BID [facility] Administration Miscellaneous 1 each 10/10/18 22:00 10/10/18 21:54 Lidoderm Patch Removal MC 1 each DAILY@2200 [facility] Administration Nebivolol 5 mg 10/08/18 10:00 10/11/18 09:32 Bystolic - PO 5 mg DAILY [facility] Administration Olanzapine 5 mg 10/07/18 22:00 10/10/18 21:54 Zyprexa - PO 5 mg HS [facility] Administration Pantoprazole Sodium 40 mg 10/08/18 10:00 10/11/18 09:31 Protonix - PO 40 mg DAILY [facility] Administration Rosuvastatin Calcium 20 mg 10/07/18 22:00 10/10/18 21:54 Crestor - PO 20 mg HS [facility] Administration Tamsulosin HCl 0.4 mg 10/08/18 08:30 10/11/18 09:32 Flomax - PO 0.4 mg DAILY@0830 [facility] Administration Microbiology 10/07/18 21:00 Blood - Peripheral Venous Blood Culture - Preliminary NO GROWTH OBTAINED AFTER 72 HOURS, INCUBATION TO CONTINUE FOR 2 DAYS. 10/07/18 14:15 Urine - Urine - Catheterized Urine Culture - Final Enterococcus Faecalis Condition: Stable - Instructions Diet, Activity, Other Instructions: follow up with PMD in 1 week follow up with Urologist Dr Goodman follow up with Analysis Consultant Dr Parra continue to with medication as prescribed return to ER if develop severe pain, respiratory distress, fever, change in mental status Referrals: Kevin Goodman MD [Staff Physician] - Vince Parra MD [Staff Physician] - - Home Medications Comprehensive Discharge Medication List: Ambulatory Orders Escitalopram Oxalate [Lexapro -] 10 mg PO DAILY 04/05/17 hydrALAZINE HCL [Apresoline -] 10 mg PO BID 04/05/17 Rosuvastatin [Crestor -] 20 mg PO HS tablet 04/15/17 Tamsulosin HCl [Flomax -] 0.4 mg PO DAILY@0830 cap.er.24h 04/15/17 Memantine HCl [Namenda -] 10 mg PO BID 06/18/17 Mirabegron [Myrbetriq] 50 mg PO DAILY 06/18/17 Acetaminophen [Tylenol .Regular Strength -] 650 mg PO Q6H PRN tablet 09/17/17 Nebivolol [Bystolic -] 5 mg PO DAILY tab 09/17/17 Olanzapine [Zyprexa -] 5 mg PO HS 08/05/18 Docusate Sodium [Colace -] 100 mg PO Q12H PRN capsule 08/09/18 Amoxicillin - [Amoxicillin 500mg Capsule -] 500 mg PO BID #14 capsule 10/11/18 Lidocaine 5% Patch [Lidoderm -] 1 patch TP DAILY #30 patch 10/11/18 Lidocaine Patch Removal [Lidoderm Patch Removal] 1 each MC DAILY@2200 #30 each 10/11/18 Pantoprazole Sodium [Protonix -] 40 mg PO DAILY #30 tablet.ec 10/11/18
--- NOTE | 2018-10-11 16:00 | PN ---
Progress Note, Physician History of Present Illness: Pt seen and examined at bedside. Mental status at baseline. He denies fevers or chills. - Current Medication List Current Medications: Active Medications Acetaminophen (Tylenol -) 650 mg PO Q6H PRN PRN Reason: PAIN LEVEL 1-5 Amoxicillin (Amoxicillin -) 500 mg PO BID [facility] Docusate Sodium (Colace -) 100 mg PO Q12H PRN PRN Reason: CONSTIPATION Escitalopram Oxalate (Lexapro -) 10 mg PO DAILY [facility] Last Admin: 10/11/18 09:32 Dose: 10 mg Hydralazine HCl (Apresoline -) 10 mg PO BID [facility] Last Admin: 10/11/18 09:32 Dose: 10 mg Lidocaine (Lidoderm Patch -) 1 patch TP DAILY [facility] Last Admin: 10/11/18 09:31 Dose: 1 patch Memantine (Namenda -) 10 mg PO BID [facility] Last Admin: 10/11/18 09:32 Dose: 10 mg Miscellaneous (Lidoderm Patch Removal) 1 each MC DAILY@2200 [facility] Last Admin: 10/10/18 21:54 Dose: 1 each Nebivolol (Bystolic -) 5 mg PO DAILY [facility] Last Admin: 10/11/18 09:32 Dose: 5 mg Olanzapine (Zyprexa -) 5 mg PO [facility] Last Admin: 10/10/18 21:54 Dose: 5 mg Pantoprazole Sodium (Protonix -) 40 mg PO DAILY [facility] Last Admin: 10/11/18 09:31 Dose: 40 mg Rosuvastatin Calcium (Crestor -) 20 mg PO [facility] Last Admin: 10/10/18 21:54 Dose: 20 mg Tamsulosin HCl (Flomax -) 0.4 mg PO DAILY@0830 [facility] Last Admin: 10/11/18 09:32 Dose: 0.4 mg - Objective Vital Signs: Vital Signs Temperature 97.9 F 10/11/18 10:00 Pulse Rate 52 L 10/11/18 10:00 Respiratory Rate 20 10/11/18 10:00 Blood Pressure 156/69 10/11/18 10:00 O2 Sat by Pulse Oximetry (%) 97 10/10/18 21:00 Constitutional: Yes: Calm Eyes: Yes: Conjunctiva Clear HENT: Yes: Atraumatic Neck: Yes: Supple Cardiovascular: Yes: S1, S2 Respiratory: Yes: CTA Bilaterally Genitourinary: Yes: Incontinence Musculoskeletal: Yes: WNL Edema: No Neurological: Yes: Oriented Psychiatric: Yes: Oriented Labs: CBC, BMP 10/11/18 07:11 10/11/18 07:11 Problem List - Problems (1) Complicated UTI (urinary tract infection) Code(s): N39.0 - URINARY TRACT INFECTION, SITE NOT SPECIFIED (2) GARRISON (acute kidney injury) Code(s): N17.9 - ACUTE KIDNEY FAILURE, UNSPECIFIED (3) CKD (chronic kidney disease) Code(s): N18.9 - CHRONIC KIDNEY DISEASE, UNSPECIFIED Assessment/Plan Current Medications Generic Name Dose Route Start Last Admin Trade Name Freq PRN Reason Stop Dose Admin Acetaminophen 650 mg 10/07/18 14:46 Tylenol - PO Q6H PRN PAIN LEVEL 1-5 Amoxicillin 500 mg 10/11/18 12:15 Amoxicillin - PO BID [facility] Docusate Sodium 100 mg 10/07/18 14:46 Colace - PO Q12H PRN CONSTIPATION Escitalopram Oxalate 10 mg 10/08/18 10:00 10/11/18 09:32 Lexapro - PO 10 mg DAILY [facility] Administration Hydralazine HCl 10 mg 10/07/18 22:00 10/11/18 09:32 Apresoline - PO 10 mg BID [facility] Administration Lidocaine 1 patch 10/10/18 14:15 10/11/18 09:31 Lidoderm Patch - TP 1 patch DAILY [facility] Administration Memantine 10 mg 10/07/18 22:00 10/11/18 09:32 Namenda - PO 10 mg BID [facility] Administration Miscellaneous 1 each 10/10/18 22:00 10/10/18 21:54 Lidoderm Patch Removal MC 1 each DAILY@2200 [facility] Administration Nebivolol 5 mg 10/08/18 10:00 10/11/18 09:32 Bystolic - PO 5 mg DAILY [facility] Administration Olanzapine 5 mg 10/07/18 22:00 10/10/18 21:54 Zyprexa - PO 5 mg HS [facility] Administration Pantoprazole Sodium 40 mg 10/08/18 10:00 10/11/18 09:31 Protonix - PO 40 mg DAILY [facility] Administration Rosuvastatin Calcium 20 mg 10/07/18 22:00 10/10/18 21:54 Crestor - PO 20 mg HS [facility] Administration Tamsulosin HCl 0.4 mg 10/08/18 08:30 10/11/18 09:32 Flomax - PO 0.4 mg DAILY@0830 [facility] Administration Impression 1. CKD 2. PKD 3. UTI 4. HTN 5. GARRISON 6. bilateral subdural hygromas 7. prostate cancer 8. dementia 9. hyperlipidemia Plan - tubing machine tender is stable - potassium improved - will see in office - abx per primary team - avoid nsaids
== END 2018-10-11 17:23 | disposition home or self-care (01) | DRG 682 ==
LOC: JER 11:25 → SUPCPDRO 11:25 → JERBED 14:50 → J6S 18:35
PROVIDERS: ADMIT Family Medicine; ATTEND Family Medicine
DX: N17.9 Acute kidney failure, unspecified (principal); G93.41 Metabolic encephalopathy; N39.0 Urinary tract infection, site not specified; Q61.3 Polycystic kidney, unspecified; G91.9 Hydrocephalus, unspecified; E78.5 Hyperlipidemia, unspecified; F03.90 Unspecified dementia, unspecified severity, without behavioral disturbance, psychotic disturbance, mood disturbance, and anxiety; E11.9 Type 2 diabetes mellitus without complications; N18.9 Chronic kidney disease, unspecified; R63.0 Anorexia; I25.10 Atherosclerotic heart disease of native coronary artery without angina pectoris; R31.9 Hematuria, unspecified; Z85.46 Personal history of malignant neoplasm of prostate; N40.0 Benign prostatic hyperplasia without lower urinary tract symptoms; I12.9 Hypertensive chronic kidney disease with stage 1 through stage 4 chronic kidney disease, or unspecified chronic kidney disease; Z95.1 Presence of aortocoronary bypass graft
CPT/HCPCS: 36415; 71045-TC-FY; 73110-TC-RT-FY; 73130-TC-RT-FY; 76775-TC; 76856-TC; 80048; 80053; 80061; 81003; 83036; 83721; 83735; 84100; 84436; 84443; 85025; 85027; 87040; 87077; 87086; 87186; 93005; 93010; 97116-GP; 97161-GP; 99283-25

== ENCOUNTER 2018-12-09 13:09 | Emergency (ER) | payer OTHER | END 2018-12-09 18:34 | disposition home or self-care (01) | LOC: JER 13:09 ==

== ENCOUNTER 2018-12-31 10:24 | Inpatient (IN) | payer OTHER ==
[2018-12-31 10:37] VITALS: BMI 29.1
--- NOTE | 2018-12-31 12:14 | PDOC ---
History of Present Illness - General History Source: Patient Exam Limitations: Clinical Condition - History of Present Illness Initial Comments: 12/31/18 12:10 Patient with history of dementia, renal failure, coronary artery disease centime by PCP for admission for IV antibiotics status post testing positive for urine culture with Klebsiella with ESBL which is resistant to most p.o. antibiotics. Called and spoke to patient PCP will report patient has change in behavior from infection and usually has recurrent UTI which resolved with IV antibiotics. Patient denies fever, chills. 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 Is this a multiple visit Asthma Patient?: No <John Thorne - Last Filed: 12/31/18 18:53> <Jagdish Pacheco - Last Filed: 01/02/19 14:27> - General Chief Complaint: Abnormal Lab Results (Outside) Stated Complaint: PAINFUL URINATION Time Seen by Provider: 12/31/18 11:27 Past History - Past Medical History Anemia: No Asthma: No Cancer: Yes (- prostate) Cardiac Disorders: Yes CVA: (NPH, TEST DECK SUPERVISOR shunt) COPD: No CHF: No DVT: No Dementia: Yes Diabetes: No GI Disorders: No Disorders: Yes (CKD, 1 KIDNEY) HTN: Yes Hypercholesterolemia: Yes Liver Disease: No Psychiatric Problems: Yes (depression) Seizures: No Thyroid Disease: No - Surgical History Abdominal Surgery: No Appendectomy: No Cardiac Surgery: Yes (open heart sx for valve replacement 2005) Cholecystectomy: No Lung Surgery: No Neurologic Surgery: Yes (TEST DECK SUPERVISOR SHUNT) Orthopedic Surgery: Yes - Immunization History Immunization Up to Date: No (UNKNOWN) - Psycho Social/Smoking Cessation Hx Smoking History: Never smoked Have you smoked in the past 12 months: No Number of Cigarettes Smoked Daily: 20 (1PPD x 10yrs) If you are a former smoker, when did you quit?: 1967 Information on smoking cessation initiated: No 'Breaking Loose' booklet given: 08/05/18 Hx Alcohol Use: No Drug/Substance Use Hx: No Substance Use Type: None Hx Substance Use Treatment: No <John Thorne - Last Filed: 12/31/18 18:53> <Jagdish Pacheco - Last Filed: 01/02/19 14:27> - Past Medical History Allergies/Adverse Reactions: Allergies Allergy/AdvReac Type Severity Reaction Status Date / Time No Known Allergies Allergy Verified 12/31/18 11:12 Home Medications: Ambulatory Orders Escitalopram Oxalate [Lexapro -] 10 mg PO DAILY 04/05/17 hydrALAZINE HCL [Apresoline -] 10 mg PO BID 04/05/17 Rosuvastatin [Crestor -] 20 mg PO HS tablet 04/15/17 Tamsulosin HCl [Flomax -] 0.4 mg PO DAILY@0830 cap.er.24h 04/15/17 Memantine HCl [Namenda -] 10 mg PO BID 06/18/17 Mirabegron [Myrbetriq] 50 mg PO DAILY 06/18/17 Nebivolol [Bystolic -] 5 mg PO DAILY tab 09/17/17 Olanzapine [Zyprexa -] 5 mg PO HS 08/05/18 Docusate Sodium [Colace -] 100 mg PO Q12H PRN capsule 08/09/18 Pantoprazole Sodium [Protonix -] 40 mg PO DAILY #30 tablet.ec 10/11/18 Review of Systems - Review of Systems Able to Perform ROS?: Yes Is the patient limited Italian proficient: No Constitutional: No: Chills, Fever, Malaise HEENTM: No: Symptoms Reported Respiratory: No: Symptoms reported Cardiac (ROS): No: Symptoms Reported ABD/GI: No: Symptoms Reported, Nausea, Vomiting, Abdominal cramping : Yes: Burning, Frequency, Urgency. No: Testicular Mass, Testicular Swelling , Testicular Pain Musculoskeletal: No: Symptoms Reported Integumentary: No: Symptoms Reported Neurological: No: Symptoms reported, Dizziness All Other Systems: Reviewed and Negative <John Thorne - Last Filed: 12/31/18 18:53> *Physical Exam - Vital Signs Last Vital Signs Temp Pulse Resp BP Pulse Ox 98.2 F 56 L 16 148/50 L 100 12/31/18 10:34 12/31/18 10:34 12/31/18 10:34 12/31/18 10:34 12/31/18 10:34 - Physical Exam Comments: 12/31/18 12:26 GENERAL: Well developed, well nourished. Awake and alert. No acute distress. HEENT: Normocephalic, atraumatic. PERRLA, EOMI. No conjunctival pallor. Sclera are non-icteric. Moist mucous membranes. Oropharynx is clear. NECK: Supple. Full ROM. CARDIOVASCULAR: Regular rate and rhythm. No murmurs, rubs, or gallops. Distal pulses are 2+ and symmetric. PULMONARY: No evidence of respiratory distress. Lungs clear to auscultation bilaterally. No wheezing, rales or rhonchi. ABDOMINAL: Soft. Non-tender. Non-distended. No rebound or guarding. No organomegaly. Normoactive bowel sounds. MUSCULOSKELETAL Normal range of motion at all joints. EXTREMITIES: No cyanosis. No clubbing. No edema. No calf tenderness. SKIN: Warm and dry. Normal capillary refill. No rashes. No jaundice. NEUROLOGICAL: Alert, awake, appropriate. Gait is normal without ataxia. PSYCHIATRIC: Cooperative. Good eye contact. Appropriate mood General Appearance: Yes: Nourished, Appropriately Dressed. No: Apparent Distress <John Thorne Addison - Last Filed: 12/31/18 18:53> - Vital Signs Last Vital Signs Temp Pulse Resp BP Pulse Ox 98.1 F 55 L 16 131/54 L 95 01/02/19 14:09 01/02/19 14:09 01/02/19 14:09 01/02/19 14:09 01/02/19 09:00 <Jagdish Pacheco - Last Filed: 01/02/19 14:27> ED Treatment Course - LABORATORY CBC & Chemistry Diagram: 12/31/18 12:40 12/31/18 13:47 <John Thorne Addison - Last Filed: 12/31/18 18:53> - LABORATORY CBC & Chemistry Diagram: 01/02/19 05:30 01/02/19 05:30 - Medications Given in the ED: ED Medications Discontinued Medications Generic Name Dose Route Start Last Admin Trade Name Freq PRN Reason Stop Dose Admin Hydralazine HCl 10 mg 12/31/18 22:00 01/02/19 09:14 Apresoline - PO 10 mg BID [facility] Administration Hydralazine HCl 15 mg 01/02/19 10:50 01/02/19 14:20 Apresoline - PO 01/02/19 10:51 Not Given ONCE ONE Piperacillin Sod/Tazobactam 50 mls @ 100 mls/hr 12/31/18 13:27 12/31/18 13:50 Sod 3.375 gm/ Dextrose IVPB 12/31/18 13:56 100 mls/hr ONCE ONE Administration Protocol <Jagdish Pacheco - Last Filed: 01/02/19 14:27> Medical Decision Making - Medical Decision Making 12/31/18 12:11 Patient with history of dementia, renal failure, coronary artery disease centime by PCP for admission for IV antibiotics status post testing positive for urine culture with Klebsiella with ESBL which is resistant to most p.o. antibiotics. Called and spoke to patient PCP will report patient has change in behavior from infection and usually has recurrent UTI which resolved with IV antibiotics. Patient denies fever, chills. 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 Lab results brought in by patient shows positive urine culture with Klebsiella with ESBL sensitive to Zosyn, imipenem's, Unasyn and amikacin. Microblog sent to medicine team for admission for IV antibiotics 12/31/18 12:[address] Ochoa RDU admit to admit robotic who agrees to admit patient to him for IV antibiotics and request ID consult with Dr. Moser which was placed. CBC , CMP, blood cultures, EKG, UA and urine culture lab ordered. Consult placed with ID who is here to see patient. Patient will be started on IV antibiotics based on recommendation from ID 12/31/18 13:04 Patient given a dose of Zosyn and admitted to medicine <John Thorne - Last Filed: 12/31/18 18:53> - Medical Decision Making 01/02/19 14:27 I reviewed the case of the mid-level practitioner and was available for consultation while in the emergency department <Jagdish Pacheco - Last Filed: 01/02/19 14:27> Discharge - Discharge Information Problems reviewed: Yes - Admission Yes <John Thorne - Last Filed: 12/31/18 18:53> <Jagdish Pacheco - Last Filed: 01/02/19 14:27> - Discharge Information Clinical Impression/Diagnosis: Urinary frequency, Complicated UTI (urinary tract infection) CKD (chronic kidney disease) Qualifiers: Chronic kidney disease stage: unspecified stage Qualified Code(s): N18.9 - Chronic kidney disease, unspecified Condition: Improved Disposition: VNS/HOME HEALTH CARE
[2018-12-31 12:53] LABS: BASO % 0.7 % (0-2.0); EOS % 2.3 % (0-4.5); HEMATOCRIT 41.1 % (35.4-49); HEMOGLOBIN 13.2 GM/dL (11.7-16.9); LYMPH % 26.2 % (8-40); MCH 25.1 pg (25.7-33.7); MCHC 32.2 g/dl (32.0-35.9); MEAN CELL VOLUME 78.2 fl (80-96); MEAN PLT VOLUME 10.2 fl (7.5-11.1); MONO % 7.4 % (3.8-10.2); NEUT % 63.4 % (42.8-82.8); PLATELET COUNT 185 K/MM3 (134-434); RBC 5.25 M/mm3 (4.00-5.60); RDW 14.9 % (11.9-15.9)
[2018-12-31 13:10] LABS: EPI CELLS 0.7 /HPF (0-5/HPF); HYALINE CASTS 3 /lpf (0-8); URINE APPEARANCE CLEAR; URINE BACTERIA 4.5 /hpf (NEGATIVE); URINE BILIRUBIN NEGATIVE (NEGATIVE); URINE COLOR YELLOW; URINE GLUCOSE (UA) TRACE (NEGATIVE); URINE KETONE NEGATIVE (NEGATIVE); URINE LEUK ESTERASE NEGATIVE (NEGATIVE); URINE NITRITE NEGATIVE (NEGATIVE); URINE PROTEIN 3+ (NEGATIVE); URINE RBC 3 /hpf (0-4); URINE UROBILINOGEN 0.2 mg/dL (0.2-1.0); URINE WBC 4 /hpf (0-5)
[2018-12-31 13:26] LABS: ALBUMIN 3.8 g/dl (3.4-5.0); BILIRUBIN,TOTAL 0.4 mg/dL (0.2-1); BLOOD UREA NITROGEN 47.3 mg/dL (7-18); CREATININE 2.3 mg/dL (0.55-1.3); TOT PROT 7.4 g/dl (6.4-8.2)
[2018-12-31] MEDS ORDERED: PIPERACILLIN/TAZOB 3.375 GM 3.375 GM in DEXTROSE 5%-WATER - 50 ML IVPB ONE (13:27)
[2018-12-31] MEDS ORDERED: PIPERACILLIN/TAZOB 3.375 GM 3.375 GM/50 ML BAG IVPB ONE (13:38)
[2018-12-31 14:15] LABS: BLOOD UREA NITROGEN 47.9 mg/dL (7-18); CALCIUM 8.7 mg/dL (8.5-10.1); CREATININE 2.3 mg/dL (0.55-1.3); POTASSIUM 5.1 mmol/L (3.5-5.1)
--- NOTE | 2018-12-31 15:27 | CONSULT ---
Consult Consult Specialty:: Infectious Disease Referred by:: Fadumo Reason for Consultation:: Multidrug resistant bacteriuria - History of Present Illness Chief Complaint: Sent from PCP with ucx results of Klebsiella oxytoca, ESBL History of Present Illness: Pt is an 88 yo M with PMHx of dementia,OA, CKD, prostate Ca, PKD, HTN, b/l subdural hygroma, NPH, s/p PHYSICIAN ASST shunt, HLD, sent in by PCP for positive for ucx with Klebsiella oxytoca and ESBL taken on 12/26/18. Per pt's family pt was less interactive than usual when they brought him in for UTI due to prior UTIs with multidrug resistant orgs. Pt and patient centered care specialist denied fevers, n/v, burning on micturition, hematuria, flank pain or abdominal pain. Pt was last admitted September 2018 and july 2018 and treated for UTI for E fecalis, 11/10 he was treated for e fecalis and proteus. Pt is demented but conversational and was oriented when I saw him. 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, Other (hydrocephalus) Cardio/Vascular: Yes: CAD, HTN, Hyperlipdemia Renal/: Yes: Renal Inusuff, UTI, Other (Polycystic kidney disease) Rheumatology: Yes: Gout - Past Surgical History Past Surgical History: Yes: CABG - Alcohol/Substance Use Hx Alcohol Use: No History of Substance Use: reports: None - Smoking History Smoking history: Never smoked Have you smoked in the past 12 months: No Aproximately how many cigarettes per day: 20 (1PPD x 10yrs) If you are a former smoker, when did you quit?: 1966 - Social History Usual Living Arrangement: With Spouse ADL: 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) History of Recent Travel: No <Agaba,Comfort I - Last Filed: 12/31/18 16:16> Home Medications <Agaba,Comfort I - Last Filed: 12/31/18 16:16> <Michelle Hogue - Last Filed: 12/31/18 18:36> - Allergies Allergies/Adverse Reactions: Allergies Allergy/AdvReac Type Severity Reaction Status Date / Time No Known Allergies Allergy Verified 12/31/18 11:12 - Home Medications Home Medications: Ambulatory Orders Escitalopram Oxalate [Lexapro -] 10 mg PO DAILY 04/05/17 hydrALAZINE HCL [Apresoline -] 10 mg PO BID 04/05/17 Rosuvastatin [Crestor -] 20 mg PO HS tablet 04/15/17 Tamsulosin HCl [Flomax -] 0.4 mg PO DAILY@0830 cap.er.24h 04/15/17 Memantine HCl [Namenda -] 10 mg PO BID 06/18/17 Mirabegron [Myrbetriq] 50 mg PO DAILY 06/18/17 Nebivolol [Bystolic -] 5 mg PO DAILY tab 09/17/17 Olanzapine [Zyprexa -] 5 mg PO HS 08/05/18 Docusate Sodium [Colace -] 100 mg PO Q12H PRN capsule 08/09/18 Pantoprazole Sodium [Protonix -] 40 mg PO DAILY #30 tablet.ec 10/11/18 Review of Systems - Review of Systems Constitutional: denies: Chills, Diaphoresis, Fever, Loss of Appetite HENT: denies: Difficult Swallowing Respiratory: denies: Cough <Agaba,Comfort I - Last Filed: 12/31/18 16:16> Physical Exam Vital Signs: Vital Signs Temperature 98.2 F 12/31/18 10:34 Pulse Rate 56 L 12/31/18 10:34 Respiratory Rate 16 12/31/18 10:34 Blood Pressure 148/50 L 12/31/18 10:34 O2 Sat by Pulse Oximetry (%) 100 12/31/18 10:34 Constitutional: Yes: No Distress, Calm Eyes: Yes: Conjunctiva Clear. No: Sclera Icterus Neck: Yes: Supple Cardiovascular: Yes: Regular Rate and Rhythm, Murmur (Apical systolic, RSB), S1 , S2 Respiratory: Yes: CTA Bilaterally Gastrointestinal: Yes: Normal Bowel Sounds, Soft Renal/: No: Anuria, CVA Tenderness - Left, CVA Tenderness - Right, Bowen Present, Hematuria, Oliguria Musculoskeletal: No: Back Pain Edema: No Neurological: Yes: Alert, Oriented. No: Aphasia, Confusion, Facial Droop ...Motor Strength: WNL Psychiatric: Yes: Alert Labs: CBC, BMP 12/31/18 12:40 12/31/18 13:47 <Karlene Shen I - Last Filed: 12/31/18 16:16> Vital Signs: Vital Signs Temperature 98.3 F 12/31/18 15:58 Pulse Rate 48 L 12/31/18 15:58 Respiratory Rate 18 12/31/18 15:58 Blood Pressure 146/77 12/31/18 15:58 O2 Sat by Pulse Oximetry (%) 98 12/31/18 15:58 Labs: CBC, BMP 12/31/18 12:40 12/31/18 13:47 <Michelle Hogue - Last Filed: 12/31/18 18:36> Assessment/Plan Ambulatory Orders Escitalopram Oxalate [Lexapro -] 10 mg PO DAILY 04/05/17 hydrALAZINE HCL [Apresoline -] 10 mg PO BID 04/05/17 Rosuvastatin [Crestor -] 20 mg PO HS tablet 04/15/17 Tamsulosin HCl [Flomax -] 0.4 mg PO DAILY@0830 cap.er.24h 04/15/17 Memantine HCl [Namenda -] 10 mg PO BID 06/18/17 Mirabegron [Myrbetriq] 50 mg PO DAILY 06/18/17 Nebivolol [Bystolic -] 5 mg PO DAILY tab 09/17/17 Olanzapine [Zyprexa -] 5 mg PO HS 08/05/18 Docusate Sodium [Colace -] 100 mg PO Q12H PRN capsule 08/09/18 Pantoprazole Sodium [Protonix -] 40 mg PO DAILY #30 tablet.ec 10/11/18 Assessment/Plan: Pt is an 88 yo M with PMHx of dementia,OA, CKD, prostate Ca, PKD, HTN, b/l subdural hygroma, NPH, s/p PHYSICIAN ASST shunt, HLD, sent in by PCP for positive for ucx with Klebsiella oxytoca and ESBL taken on 12/26/18. dementia, OA, CKD, prostate Ca, PKD, HTN, b/l subdural hygroma, NPH, s/p PHYSICIAN ASST shunt, HLD, positive for ucx with Klebsiella oxytoca and ESBL taken on 12/26/18. Asymptomatic bacteriuria Plan: Asymptomatic bacteriuria with ucx with Klebsiella oxytoca and ESBL taken on 12/26/18. prior multidrug resistant UTIs Pt appears to be at baseline mentally, no white count, UA negative, no fevers, no urianry symptoms, no flank tenderness No indication to treat pt for asymptomatic bacteriura at this point, will hold off A/B treatment Cont to monitor D/W Dr Mykel Shen PGY 3 <Karlene Shen I - Last Filed: 12/31/18 16:16> Visit type - Emergency Visit Emergency Visit: Yes ED Registration Date: 12/31/18 Care time: The patient presented to the Emergency Department on the above date and was hospitalized for further evaluation of their emergent condition. - New Patient This patient is new to me today: Yes Date on this admission: 12/31/18 - Critical Care Critical Care patient: No <Karlene Shen I - Last Filed: 12/31/18 16:16> ATTENDING PHYSICIAN STATEMENT I saw and evaluated the patient. I reviewed the resident's note and discussed the case with the resident. I agree with the resident's findings and plan as documented. SUBJECTIVE: OBJECTIVE: ASSESSMENT AND PLAN: <Karlene Shen I - Last Filed: 12/31/18 16:16> ATTENDING PHYSICIAN STATEMENT I saw and evaluated the patient. I reviewed the resident's note and discussed the case with the resident. I agree with the resident's findings and plan as documented. SUBJECTIVE:chart reviewed and patient interviewed OBJECTIVE: patient examined vitals reviewed labs reviewed ASSESSMENT AND PLAN: clinically c/w asymptomatic bacteriuria no need for further antibiotics hsitory ckd at baseline mental status at baseline per VICE PRESIDENT INDUSTRIAL RELATIONS at bedside <Michelle Hogue - Last Filed: 12/31/18 18:36>
--- NOTE | 2018-12-31 15:51 | CONSULT ---
Consult Consult Specialty:: Nephrology Reason for Consultation:: CKD with GARRISON - History of Present Illness Chief Complaint: positive uti kleb esbl History of Present Illness: Pt is an 88 year old male with pmhx of dementia, ckd, pkd, and DM who was sent in for positive urine cultures. He was found to have esbl kelbsiella. He is awake and appears comfortable. He denies fevers or chills. He denies dysuria or hematuria. He is a poor historian. He is accompanied by his home health aid. He has had multiple UTI's in the past. 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, Other (hydrocephalus) Cardio/Vascular: Yes: CAD, HTN, Hyperlipdemia Renal/: Yes: Renal Inusuff, UTI, Other (Polycystic kidney disease) Rheumatology: Yes: Gout - Past Surgical History Past Surgical History: Yes: CABG - Alcohol/Substance Use Hx Alcohol Use: No History of Substance Use: reports: None - Smoking History Smoking history: Never smoked Have you smoked in the past 12 months: No Aproximately how many cigarettes per day: 20 (1PPD x 10yrs) If you are a former smoker, when did you quit?: 1966 - Social History Usual Living Arrangement: With Spouse 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) History of Recent Travel: No Home Medications - Allergies Allergies/Adverse Reactions: Allergies Allergy/AdvReac Type Severity Reaction Status Date / Time No Known Allergies Allergy Verified 12/31/18 11:12 - Home Medications Home Medications: Ambulatory Orders Escitalopram Oxalate [Lexapro -] 10 mg PO DAILY 04/05/17 hydrALAZINE HCL [Apresoline -] 10 mg PO BID 04/05/17 Rosuvastatin [Crestor -] 20 mg PO HS tablet 04/15/17 Tamsulosin HCl [Flomax -] 0.4 mg PO DAILY@0830 cap.er.24h 04/15/17 Memantine HCl [Namenda -] 10 mg PO BID 06/18/17 Mirabegron [Myrbetriq] 50 mg PO DAILY 06/18/17 Nebivolol [Bystolic -] 5 mg PO DAILY tab 09/17/17 Olanzapine [Zyprexa -] 5 mg PO HS 08/05/18 Docusate Sodium [Colace -] 100 mg PO Q12H PRN capsule 08/09/18 Pantoprazole Sodium [Protonix -] 40 mg PO DAILY #30 tablet.ec 10/11/18 Family Medical History Family History: Denies Review of Systems - Review of Systems Constitutional: reports: No Symptoms Eyes: reports: No Symptoms HENT: reports: No Symptoms Neck: reports: No Symptoms Cardiovascular: reports: No Symptoms Respiratory: reports: No Symptoms Gastrointestinal: reports: No Symptoms Genitourinary: reports: No Symptoms Musculoskeletal: reports: No Symptoms Integumentary: reports: No Symptoms Neurological: reports: No Symptoms Endocrine: reports: No Symptoms Hematology/Lymphatic: reports: No Symptoms Psychiatric: reports: No Symptoms Physical Exam Vital Signs: Vital Signs Temperature 98.2 F 12/31/18 10:34 Pulse Rate 56 L 12/31/18 10:34 Respiratory Rate 16 12/31/18 10:34 Blood Pressure 148/50 L 12/31/18 10:34 O2 Sat by Pulse Oximetry (%) 100 12/31/18 10:34 Constitutional: Yes: Calm Eyes: Yes: Conjunctiva Clear HENT: Yes: Atraumatic Cardiovascular: Yes: S1, S2 Respiratory: Yes: CTA Bilaterally Gastrointestinal: Yes: Soft Renal/: Yes: WNL Musculoskeletal: Yes: WNL Extremities: Yes: WNL Edema: No Neurological: Yes: Oriented Labs: CBC, BMP 12/31/18 12:40 12/31/18 13:47 Assessment/Plan Laboratory Tests 10/10/18 10/11/18 12/09/18 07:38 07:11 14:40 Creatinine 2.2 H 2.3 H 2.7 H Urine Protein Urine Blood 12/31/18 12/31/18 12/31/18 12:40 12:50 13:47 Creatinine 2.3 H 2.3 H Urine Protein 3+ H Urine Blood Negative Impression 1. CKD 2. PKD 3. UTI 4. HTN 5. GARRISON 6. bilateral subdural hygromas 7. prostate cancer 8. dementia 9. hyperlipidemia Plan - monitor renal function - cont abx - follow blood and urine cultures - resume home meds - pt has appetite - avoid nsaids
--- NOTE | 2018-12-31 16:28 | HP ---
Admitting History and Physical - Admission Chief Complaint: UTI History of Present Illness: Patient is a 88 y/o male with past medical history of Dementia, renal failure, CAD. Patient was sent by PCP to ER for IV antibiotic therapy after UC tested positive for Klebsiella with ESBL. Patient is poor informant and information obtained from medical records. 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, Other (hydrocephalus) Cardiovascular: Yes: CAD, HTN, Hyperlipdemia Renal/: Yes: Renal Inusuff, UTI, Other (Polycystic kidney disease) Rheumatology: Yes: Gout - Past Surgical History Past Surgical History: Yes: CABG - Smoking History Smoking history: Never smoked Have you smoked in the past 12 months: No Aproximately how many cigarettes per day: 20 (1PPD x 10yrs) If you are a former smoker, when did you quit?: 1967 - Alcohol/Substance Use Hx Alcohol Use: No History of Substance Use: reports: None - Social History Usual Living Arrangement: Yes: With Spouse 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) History of Recent Travel: No Home Medications - Allergies Allergies/Adverse Reactions: Allergies Allergy/AdvReac Type Severity Reaction Status Date / Time No Known Allergies Allergy Verified 12/31/18 11:12 - Home Medications Home Medications: Ambulatory Orders Escitalopram Oxalate [Lexapro -] 10 mg PO DAILY 04/05/17 hydrALAZINE HCL [Apresoline -] 10 mg PO BID 04/05/17 Rosuvastatin [Crestor -] 20 mg PO HS tablet 04/15/17 Tamsulosin HCl [Flomax -] 0.4 mg PO DAILY@0830 cap.er.24h 04/15/17 Memantine HCl [Namenda -] 10 mg PO BID 06/18/17 Mirabegron [Myrbetriq] 50 mg PO DAILY 06/18/17 Nebivolol [Bystolic -] 5 mg PO DAILY tab 09/17/17 Olanzapine [Zyprexa -] 5 mg PO HS 08/05/18 Docusate Sodium [Colace -] 100 mg PO Q12H PRN capsule 08/09/18 Pantoprazole Sodium [Protonix -] 40 mg PO DAILY #30 tablet.ec 10/11/18 Review of Systems - Review of Systems Constitutional: reports: No Symptoms Eyes: reports: No Symptoms HENT: reports: No Symptoms Neck: reports: No Symptoms Cardiovascular: reports: No Symptoms Respiratory: reports: No Symptoms Gastrointestinal: reports: No Symptoms Genitourinary: reports: No Symptoms Breasts: reports: No Symptoms Reported Musculoskeletal: reports: No Symptoms Integumentary: reports: No Symptoms Neurological: reports: No Symptoms Endocrine: reports: No Symptoms Hematology/Lymphatic: reports: No Symptoms Psychiatric: reports: No Symptoms Physical Examination Vital Signs: Vital Signs Temperature 98.3 F 12/31/18 15:58 Pulse Rate 48 L 12/31/18 15:58 Respiratory Rate 18 12/31/18 15:58 Blood Pressure 146/77 12/31/18 15:58 O2 Sat by Pulse Oximetry (%) 98 12/31/18 15:58 Constitutional: Yes: No Distress, Calm, Obese Eyes: Yes: Conjunctiva Clear HENT: Yes: Atraumatic Neck: Yes: Supple Cardiovascular: Yes: Regular Rate and Rhythm Respiratory: Yes: Regular, CTA Bilaterally Gastrointestinal: Yes: Normal Bowel Sounds, Soft Musculoskeletal: Yes: Muscle Weakness Extremities: Yes: WNL Edema: No Neurological: Yes: Alert, Confusion, Pre-Existing Deficit Psychiatric: Yes: Alert, Oriented (to person and place) Labs: CBC, BMP 12/31/18 12:40 12/31/18 13:47 Problem List - Problems (1) CKD (chronic kidney disease) Assessment/Plan: -BUN/Cr 47.9/2.3 -Renal on board -monitor renal function Code(s): N18.9 - CHRONIC KIDNEY DISEASE, UNSPECIFIED Qualifiers: Chronic kidney disease stage: unspecified stage Qualified Code(s): N18.9 - Chronic kidney disease, unspecified (2) Complicated UTI (urinary tract infection) Assessment/Plan: -ID on board -UC pending -UA with neg leuks -afebrile -no leukocytosis -observe off antibiotics Code(s): N39.0 - URINARY TRACT INFECTION, SITE NOT SPECIFIED (3) Acute metabolic encephalopathy Assessment/Plan: -UC pending -possibly 2/2 to UTI? Code(s): G93.41 - METABOLIC ENCEPHALOPATHY (4) BPH (benign prostatic hyperplasia) Assessment/Plan: -Tamsulosin Code(s): N40.0 - BENIGN PROSTATIC HYPERPLASIA WITHOUT LOWER URINRY TRACT SYMP (5) Coronary artery disease Assessment/Plan: -Crestor Code(s): I25.10 - ATHSCL HEART DISEASE OF [place] CORONARY ARTERY W/O ANG PCTRS (6) Dementia Assessment/Plan: -Namenda Code(s): F03.90 - UNSPECIFIED DEMENTIA WITHOUT BEHAVIORAL DISTURBANCE Assessment/Plan see problem list dvt ppx
--- NOTE | 2018-12-31 17:14 | PN ---
Progress Note (short form) - Note Progress Note: please refer to ID resident note for full notes imp/reccd 88 yo man sent to ED today with urine culture from 12/26 with kleb oxytoca esbl in his urine he has no fever he is alert UA is negative I suspect he has asymptomatic bacteriuria and would not treat him with antibiotics at this time
[2018-12-31] MEDS ORDERED: DOCUSATE SODIUM 100 MG CAPSULE (FP) PO PRN (20:00)
[2018-12-31] MEDS ORDERED: ACETAMINOPHEN 325 MG TABLET (FP) PO PRN (20:01)
[2018-12-31] MEDS ORDERED: ROSUVASTATIN CA 20 MG TABLET (FP) PO SCH (22:00)
[2018-12-31] MEDS: HEPARIN NA (PORCINE) 5,000 UNITS/ML 1ML VIAL SQ SCH (22:27)
[2018-12-31] MEDS: OLANZapine 5 MG TABLET PO SCH (22:27)
[2018-12-31] MEDS: hydrALAZINE HCL 10 MG TABLET PO SCH (22:27)
[2018-12-31] MEDS: MEMANTINE HCL 10 MG TABLET (FP) PO SCH (22:27)
[2018-12-31] MEDS ORDERED: hydrALAZINE HCL 25 MG TABLET (FP) ONE (23:43)
[2018-12-31] MEDS ORDERED: OLANZapine 10 MG TABLET ONE (23:44)
[2019-01-01 07:41] LABS: BASO % 0.6 % (0-2.0); EOS % 2.9 % (0-4.5); HEMATOCRIT 42.3 % (35.4-49); HEMOGLOBIN 13.6 GM/dL (11.7-16.9); LYMPH % 39.9 % (8-40); MCH 25.3 pg (25.7-33.7); MCHC 32.2 g/dl (32.0-35.9); MEAN CELL VOLUME 78.4 fl (80-96); MONO % 6.5 % (3.8-10.2); NEUT % 50.1 % (42.8-82.8); PLATELET COUNT 193 K/MM3 (134-434); RBC 5.39 M/mm3 (4.00-5.60); RDW 14.9 % (11.9-15.9); WHITE BLOOD COUNT 10.9 K/mm3 (4.0-10.0)
[2019-01-01 08:08] LABS: ALBUMIN 4.2 g/dl (3.4-5.0); BILIRUBIN,TOTAL 0.4 mg/dL (0.2-1); BLOOD UREA NITROGEN 45.2 mg/dL (7-18); CALCIUM 9.1 mg/dL (8.5-10.1); CREATININE 2.3 mg/dL (0.55-1.3); PHOSPHOROUS 3.9 mg/dL (2.5-4.9); POTASSIUM 4.9 mmol/L (3.5-5.1); TOT PROT 7.4 g/dl (6.4-8.2)
[2019-01-01] MEDS: TAMSULOSIN HCL 0.4 MG CAP PO SCH (08:33)
[2019-01-01] MEDS: HEPARIN NA (PORCINE) 5,000 UNITS/ML 1ML VIAL SQ SCH ×2 (09:20→22:32)
[2019-01-01] MEDS: NEBIVOLOL 5 MG TABLET (FP) PO SCH (09:20)
[2019-01-01] MEDS: MEMANTINE HCL 10 MG TABLET (FP) PO SCH ×2 (09:20→22:32)
[2019-01-01] MEDS: ESCITALOPRAM OXALATE 10 MG TABLET (FP) PO SCH (09:20)
[2019-01-01] MEDS: PANTOPRAZOLE 40 MG TABLET (FP) PO SCH (09:20)
[2019-01-01] MEDS: hydrALAZINE HCL 10 MG TABLET PO SCH ×2 (09:20→22:32)
[2019-01-01] MEDS ORDERED: PATIENT'S OWN MEDICATION (NON-FORMULARY) (Mirabegron [Myrbetriq] 50 MG) PO SCH (10:00)
--- NOTE | 2019-01-01 12:07 | PN ---
Progress Note, Physician History of Present Illness: Pt seen and examined at bedside. He is awake and alert. He denies shortness of breath. - Current Medication List Current Medications: Active Medications Acetaminophen (Tylenol -) 650 mg PO Q4H PRN PRN Reason: PAIN LEVEL 1-5 Docusate Sodium (Colace -) 100 mg PO Q12H PRN PRN Reason: CONSTIPATION Escitalopram Oxalate (Lexapro -) 10 mg PO DAILY [facility] Last Admin: 01/01/19 09:20 Dose: 10 mg Heparin Sodium (Porcine) (Heparin -) 5,000 unit SQ BID [facility] Last Admin: 01/01/19 09:20 Dose: 5,000 unit Hydralazine HCl (Apresoline -) 10 mg PO BID [facility] Last Admin: 01/01/19 09:20 Dose: 10 mg Memantine (Namenda -) 10 mg PO BID [facility] Last Admin: 01/01/19 09:20 Dose: 10 mg Nebivolol (Bystolic -) 5 mg PO DAILY [facility] Last Admin: 01/01/19 09:20 Dose: 5 mg Olanzapine (Zyprexa -) 5 mg PO HS [facility] Last Admin: 12/31/18 22:27 Dose: Not Given Pantoprazole Sodium (Protonix -) 40 mg PO DAILY [facility] Last Admin: 01/01/19 09:20 Dose: 40 mg Rosuvastatin Calcium (Crestor -) 20 mg PO [facility] Tamsulosin HCl (Flomax -) 0.4 mg PO DAILY@0830 [facility] Last Admin: 01/01/19 08:33 Dose: 0.4 mg - Objective Vital Signs: Vital Signs Temperature 98 F 01/01/19 11:37 Pulse Rate 55 L 01/01/19 11:37 Respiratory Rate 18 01/01/19 11:37 Blood Pressure 144/52 L 01/01/19 11:37 O2 Sat by Pulse Oximetry (%) 99 01/01/19 11:37 Constitutional: Yes: Calm Eyes: Yes: Conjunctiva Clear HENT: Yes: Atraumatic Neck: Yes: Supple Cardiovascular: Yes: S1, S2 Respiratory: Yes: CTA Bilaterally Gastrointestinal: Yes: Normal Bowel Sounds, Soft Genitourinary: Yes: WNL Musculoskeletal: Yes: WNL Edema: No Integumentary: Yes: WNL Neurological: Yes: Oriented Psychiatric: Yes: Oriented Labs: CBC, BMP 01/01/19 07:00 01/01/19 07:00 Assessment/Plan Current Medications Generic Name Dose Route Start Last Admin Trade Name Marla PRN Reason Stop Dose Admin Acetaminophen 650 mg 12/31/18 20:01 Tylenol - PO Q4H PRN PAIN LEVEL 1-5 Docusate Sodium 100 mg 12/31/18 20:00 Colace - PO Q12H PRN CONSTIPATION Escitalopram Oxalate 10 mg 01/01/19 10:00 01/01/19 09:20 Lexapro - PO 10 mg DAILY [facility] Administration Heparin Sodium (Porcine) 5,000 unit 12/31/18 22:00 01/01/19 09:20 Heparin - SQ 5,000 unit BID [facility] Administration Hydralazine HCl 10 mg 12/31/18 22:00 01/01/19 09:20 Apresoline - PO 10 mg BID [facility] Administration Memantine 10 mg 12/31/18 22:00 01/01/19 09:20 Namenda - PO 10 mg BID [facility] Administration Nebivolol 5 mg 01/01/19 10:00 01/01/19 09:20 Bystolic - PO 5 mg DAILY [facility] Administration Olanzapine 5 mg 12/31/18 22:00 12/31/18 22:27 Zyprexa - PO Not Given HS [facility] Pantoprazole Sodium 40 mg 01/01/19 10:00 01/01/19 09:20 Protonix - PO 40 mg DAILY [facility] Administration Rosuvastatin Calcium 20 mg 12/31/18 22:00 Crestor - PO HS [facility] Tamsulosin HCl 0.4 mg 01/01/19 08:30 01/01/19 08:33 Flomax - PO 0.4 mg DAILY@0830 [facility] Administration Impression 1. CKD 2. PKD 3. UTI 4. HTN 5. GARRISON 6. bilateral subdural hygromas 7. prostate cancer 8. dementia 9. hyperlipidemia Plan - renal function is stable - initial potassium was hemolyzed yesterday - potassium stable, monitor as he had hyperkalemia in the past - follow blood and urine cultures - resume home meds - avoid nsaids
--- NOTE | 2019-01-01 12:11 | EKG ---
Test Reason : Blood Pressure : / mmHG Vent. 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
--- NOTE | 2019-01-01 13:13 | PN ---
Progress Note, Physician Chief Complaint: Complicated UTI Dementia History of Present Illness: Previous notes and events reviewed awake and alert NAD denies dysuria denies chest pain or SOB - Current Medication List Current Medications: Active Medications Acetaminophen (Tylenol -) 650 mg PO Q4H PRN PRN Reason: PAIN LEVEL 1-5 Docusate Sodium (Colace -) 100 mg PO Q12H PRN PRN Reason: CONSTIPATION Escitalopram Oxalate (Lexapro -) 10 mg PO DAILY [facility] Last Admin: 01/01/19 09:20 Dose: 10 mg Heparin Sodium (Porcine) (Heparin -) 5,000 unit SQ BID [facility] Last Admin: 01/01/19 09:20 Dose: 5,000 unit Hydralazine HCl (Apresoline -) 10 mg PO BID [facility] Last Admin: 01/01/19 09:20 Dose: 10 mg Memantine (Namenda -) 10 mg PO BID [facility] Last Admin: 01/01/19 09:20 Dose: 10 mg Nebivolol (Bystolic -) 5 mg PO DAILY [facility] Last Admin: 01/01/19 09:20 Dose: 5 mg Olanzapine (Zyprexa -) 5 mg PO [facility] Last Admin: 12/31/18 22:27 Dose: Not Given Pantoprazole Sodium (Protonix -) 40 mg PO DAILY [facility] Last Admin: 01/01/19 09:20 Dose: 40 mg Rosuvastatin Calcium (Crestor -) 20 mg PO [facility] Tamsulosin HCl (Flomax -) 0.4 mg PO DAILY@0830 [facility] Last Admin: 01/01/19 08:33 Dose: 0.4 mg - Objective Vital Signs: Vital Signs Temperature 98 F 01/01/19 11:37 Pulse Rate 55 L 01/01/19 11:37 Respiratory Rate 18 01/01/19 11:37 Blood Pressure 144/52 L 01/01/19 11:37 O2 Sat by Pulse Oximetry (%) 99 01/01/19 11:37 Constitutional: Yes: No Distress, Calm Eyes: Yes: Conjunctiva Clear HENT: Yes: Atraumatic Cardiovascular: Yes: Regular Rate and Rhythm Respiratory: Yes: Regular, CTA Bilaterally Gastrointestinal: Yes: Normal Bowel Sounds, Soft Musculoskeletal: Yes: Muscle Weakness Extremities: Yes: WNL Edema: No Neurological: Yes: Alert, Pre-Existing Deficit Psychiatric: Yes: Alert Labs: CBC, BMP 01/01/19 07:00 01/01/19 07:00 Microbiology 12/31/18 12:40 Blood - Peripheral Venous Blood Culture - Preliminary NO GROWTH OBTAINED AFTER 24 HOURS, INCUBATION TO CONTINUE FOR 4 DAYS. 12/31/18 12:40 Blood - Peripheral Venous Blood Culture - Preliminary NO GROWTH OBTAINED AFTER 24 HOURS, INCUBATION TO CONTINUE FOR 4 DAYS. 12/31/18 12:50 Urine - Urine Clean Catch Urine Culture - Final Non Lactose Fermenting Gnb Gram Negative Jose Problem List - Problems (1) CKD (chronic kidney disease) Assessment/Plan: -BUN/Cr 45.2/2.3 -Renal on board -monitor renal function Code(s): N18.9 - CHRONIC KIDNEY DISEASE, UNSPECIFIED Qualifiers: Chronic kidney disease stage: unspecified stage Qualified Code(s): N18.9 - Chronic kidney disease, unspecified (2) Complicated UTI (urinary tract infection) Assessment/Plan: -ID on board -UC prelim positive -UA with neg leuks -afebrile -leukocytosis WBC 10.9 -observe off antibiotics Code(s): N39.0 - URINARY TRACT INFECTION, SITE NOT SPECIFIED (3) Acute metabolic encephalopathy Assessment/Plan: -UC prelim positive -possibly 2/2 to UTI? Code(s): G93.41 - METABOLIC ENCEPHALOPATHY (4) BPH (benign prostatic hyperplasia) Assessment/Plan: -Tamsulosin Code(s): N40.0 - BENIGN PROSTATIC HYPERPLASIA WITHOUT LOWER URINRY TRACT SYMP (5) Coronary artery disease Assessment/Plan: -Crestor Code(s): I25.10 - ATHSCL HEART DISEASE OF [place] CORONARY ARTERY W/O ANG PCTRS (6) Dementia Assessment/Plan: -Namenda Code(s): F03.90 - UNSPECIFIED DEMENTIA WITHOUT BEHAVIORAL DISTURBANCE Assessment/Plan see problem list dvt ppx
[2019-01-01] MEDS: OLANZapine 5 MG TABLET PO SCH (22:32)
[2019-01-02 07:09] LABS: ALBUMIN 3.4 g/dl (3.4-5.0); BILIRUBIN,TOTAL 0.3 mg/dL (0.2-1); BLOOD UREA NITROGEN 51.1 mg/dL (7-18); CALCIUM 8.6 mg/dL (8.5-10.1); CREATININE 2.5 mg/dL (0.55-1.3); POTASSIUM 4.9 mmol/L (3.5-5.1); TOT PROT 5.9 g/dl (6.4-8.2)
[2019-01-02 07:50] LABS: HEMATOCRIT 39.1 % (35.4-49); HEMOGLOBIN 12.4 GM/dl (11.7-16.9); MEAN CELL VOLUME 78.7 fl (80-96); RBC 4.97 M/mm3 (4.00-5.60); WHITE BLOOD COUNT 7.2 K/mm3 (4.0-10.8)
[2019-01-02 07:51] LABS: MCH 24.9 pg (25.7-33.7); MCHC 31.6 g/dl (32.0-35.9); MEAN PLT VOLUME 10.6 fl (7.5-11.1); PLATELET COUNT 158 K/MM3 (134-434); RDW 14.9 % (11.9-15.9)
[2019-01-02] MEDS: TAMSULOSIN HCL 0.4 MG CAP PO SCH (08:53)
[2019-01-02] MEDS: PANTOPRAZOLE 40 MG TABLET (FP) PO SCH (09:14)
[2019-01-02] MEDS: HEPARIN NA (PORCINE) 5,000 UNITS/ML 1ML VIAL SQ SCH ×2 (09:14→21:53)
[2019-01-02] MEDS: hydrALAZINE HCL 10 MG TABLET PO SCH (09:14)
[2019-01-02] MEDS: ESCITALOPRAM OXALATE 10 MG TABLET (FP) PO SCH (09:14)
[2019-01-02] MEDS: MEMANTINE HCL 10 MG TABLET (FP) PO SCH ×2 (09:14→21:53)
[2019-01-02] MEDS ORDERED: hydrALAZINE HCL 10 MG TABLET PO ONE (10:50)
[2019-01-02] MEDS: NEBIVOLOL 5 MG TABLET (FP) PO SCH (11:31)
--- NOTE | 2019-01-02 14:20 | DS ---
Physical Examination Vital Signs: Vital Signs Temperature 98.1 F 01/02/19 14:09 Pulse Rate 55 L 01/02/19 14:09 Respiratory Rate 16 01/02/19 14:09 Blood Pressure 131/54 L 01/02/19 14:09 O2 Sat by Pulse Oximetry (%) 95 01/02/19 09:00 Constitutional: Yes: Calm Cardiovascular: Yes: Regular Rate and Rhythm, S1, S2 Respiratory: Yes: CTA Bilaterally Gastrointestinal: Yes: Normal Bowel Sounds, Soft Edema: No Neurological: Yes: Alert, Oriented Labs: CBC, BMP 01/02/19 05:30 01/02/19 05:30 Discharge Summary Problems reviewed: Yes Reason For Visit: COMPLICATED UTI,DEMENTIA,CHRONIC KIDNEY DISEASE Current Active Problems CKD (chronic kidney disease) (Acute) Complicated UTI (urinary tract infection) (Acute) Urinary frequency (Acute) Hospital Course: Patient is a 88 y/o male with past medical history of Dementia, renal failure, CAD. Patient was sent by PCP to ER for IV antibiotic therapy after UC tested positive for Klebsiella with ESBL. Patient is poor informant and information obtained from medical records.patient seen by ID no need for abx.to get ct head today if report shows nothing acute will go home Condition: Improved - Instructions Referrals: Natalya Rae MD [Primary Care Provider] - Disposition: VNS/HOME HEALTH CARE - Home Medications Comprehensive Discharge Medication List: Ambulatory Orders Escitalopram Oxalate [Lexapro -] 10 mg PO DAILY 04/05/17 hydrALAZINE HCL [Apresoline -] 10 mg PO BID 04/05/17 Rosuvastatin [Crestor -] 20 mg PO HS tablet 04/15/17 Tamsulosin HCl [Flomax -] 0.4 mg PO DAILY@0830 cap.er.24h 04/15/17 Memantine HCl [Namenda -] 10 mg PO BID 06/18/17 Mirabegron [Myrbetriq] 50 mg PO DAILY 06/18/17 Nebivolol [Bystolic -] 5 mg PO DAILY tab 09/17/17 Olanzapine [Zyprexa -] 5 mg PO HS 08/05/18 Docusate Sodium [Colace -] 100 mg PO Q12H PRN capsule 08/09/18 Pantoprazole Sodium [Protonix -] 40 mg PO DAILY #30 tablet.ec 10/11/18
[2019-01-02] MEDS: hydrALAZINE HCL 25 MG TABLET (FP) PO SCH ×2 (14:31→21:53)
--- NOTE | 2019-01-02 15:04 | PN ---
Progress Note, Physician History of Present Illness: Pt seen and examined at bedside. He is awake and alert. He denies shortness of breath. He denies fevers or chills. - Current Medication List Current Medications: Active Medications Acetaminophen (Tylenol -) 650 mg PO Q4H PRN PRN Reason: PAIN LEVEL 1-5 Docusate Sodium (Colace -) 100 mg PO Q12H PRN PRN Reason: CONSTIPATION Escitalopram Oxalate (Lexapro -) 10 mg PO DAILY [facility] Last Admin: 01/02/19 09:14 Dose: 10 mg Heparin Sodium (Porcine) (Heparin -) 5,000 unit SQ BID [facility] Last Admin: 01/02/19 09:14 Dose: 5,000 unit Hydralazine HCl (Apresoline -) 25 mg PO TID [facility] Last Admin: 01/02/19 14:31 Dose: 25 mg Memantine (Namenda -) 10 mg PO BID [facility] Last Admin: 01/02/19 09:14 Dose: 10 mg Nebivolol (Bystolic -) 5 mg PO DAILY [facility] Last Admin: 01/02/19 11:31 Dose: Not Given Olanzapine (Zyprexa -) 5 mg PO HS [facility] Last Admin: 01/01/19 22:32 Dose: 5 mg Pantoprazole Sodium (Protonix -) 40 mg PO DAILY [facility] Last Admin: 01/02/19 09:14 Dose: 40 mg Rosuvastatin Calcium (Crestor -) 20 mg PO [facility] Tamsulosin HCl (Flomax -) 0.4 mg PO DAILY@0830 [facility] Last Admin: 01/02/19 08:53 Dose: 0.4 mg - Objective Vital Signs: Vital Signs Temperature 98.1 F 01/02/19 14:09 Pulse Rate 55 L 01/02/19 14:09 Respiratory Rate 16 01/02/19 14:09 Blood Pressure 131/54 L 01/02/19 14:09 O2 Sat by Pulse Oximetry (%) 95 01/02/19 09:00 Constitutional: Yes: Calm Eyes: Yes: Conjunctiva Clear HENT: Yes: Atraumatic Neck: Yes: Supple Cardiovascular: Yes: S1, S2 Respiratory: Yes: CTA Bilaterally Gastrointestinal: Yes: Soft Genitourinary: Yes: Incontinence Edema: No Integumentary: Yes: WNL Neurological: Yes: Oriented Psychiatric: Yes: Oriented Labs: CBC, BMP 01/02/19 05:30 01/02/19 05:30 Assessment/Plan Current Medications Generic Name Dose Route Start Last Admin Trade Name Marla PRN Reason Stop Dose Admin Acetaminophen 650 mg 12/31/18 20:01 Tylenol - PO Q4H PRN PAIN LEVEL 1-5 Docusate Sodium 100 mg 12/31/18 20:00 Colace - PO Q12H PRN CONSTIPATION Escitalopram Oxalate 10 mg 01/01/19 10:00 01/02/19 09:14 Lexapro - PO 10 mg DAILY [facility] Administration Heparin Sodium (Porcine) 5,000 unit 12/31/18 22:00 01/02/19 09:14 Heparin - SQ 5,000 unit BID [facility] Administration Hydralazine HCl 25 mg 01/02/19 14:00 01/02/19 14:31 Apresoline - PO 25 mg TID [facility] Administration Memantine 10 mg 12/31/18 22:00 01/02/19 09:14 Namenda - PO 10 mg BID [facility] Administration Nebivolol 5 mg 01/01/19 10:00 01/02/19 11:31 Bystolic - PO Not Given DAILY [facility] Olanzapine 5 mg 12/31/18 22:00 01/01/19 22:32 Zyprexa - PO 5 mg HS [facility] Administration Pantoprazole Sodium 40 mg 01/01/19 10:00 01/02/19 09:14 Protonix - PO 40 mg DAILY [facility] Administration Rosuvastatin Calcium 20 mg 12/31/18 22:00 Crestor - PO HS [facility] Tamsulosin HCl 0.4 mg 01/01/19 08:30 01/02/19 08:53 Flomax - PO 0.4 mg DAILY@0830 [facility] Administration Impression 1. CKD 2. PKD 3. UTI 4. HTN 5. GARRISON 6. bilateral subdural hygromas 7. prostate cancer 8. dementia 9. hyperlipidemia Plan - monitor renal function - potassium stable - abx per primary team - outpt follow up - discussed with medical team - avoid nsaids
--- NOTE | 2019-01-02 15:37 | PN ---
Progress Note (short form) - Note Progress Note: service to be set up by [facility] plan to dc home in AM if head ct is ok
--- NOTE | 2019-01-02 17:06 | CON.NEURO ---
Consult - History of Present Illness History of Present Illness: 88 y/o male with past medical history of Dementia, hx of shunt , renal failure, CAD. Patient was sent by PCP to ER for IV antibiotic therapy after UC tested positive for Klebsiella with ESBL. Pt now more awake and conversive. States shunt put in two yrs ago by Dr. Clark though unclear of the indication. no SEN or focal motor sensory complaints. CT HD 01/02/19 Impression: No definite interval change is identified in comparison to prior exams performed in 2019 and 2018. Ventricular shunt in place. Mild stable dilatation of the lateral ventricles. Note is again made of a punctate hypodense focus within the frontal horn of the right lateral ventricle possibly representing fat. As on the prior exams stable small/very small bilateral frontoparietal convexity chronic subdural hematomas/chronic subdural hygromas are noted. There is no midline displacement. Mild to moderate periventricular and subcortical chronic microvascular ischemic changes are seen. 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: Dementia, Other (hydrocephalus) Cardio/Vascular: Yes: CAD, HTN, Hyperlipdemia Renal/: Yes: Renal Inusuff, UTI, Other (Polycystic kidney disease) Rheumatology: Yes: Gout - Past Surgical History Past Surgical History: Yes: CABG - Alcohol/Substance Use Hx Alcohol Use: No History of Substance Use: reports: None - Smoking History Smoking history: Former smoker Have you smoked in the past 12 months: No Aproximately how many cigarettes per day: 20 If you are a former smoker, when did you quit?: 1966 - Social History Usual Living Arrangement: With Spouse ADL: 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) History of Recent Travel: No Home Medications - Allergies Allergies/Adverse Reactions: Allergies Allergy/AdvReac Type Severity Reaction Status Date / Time No Known Allergies Allergy Verified 12/31/18 11:12 - Home Medications Home Medications: Ambulatory Orders Escitalopram Oxalate [Lexapro -] 10 mg PO DAILY 04/05/17 hydrALAZINE HCL [Apresoline -] 10 mg PO BID 04/05/17 Rosuvastatin [Crestor -] 20 mg PO HS tablet 04/15/17 Tamsulosin HCl [Flomax -] 0.4 mg PO DAILY@0830 cap.er.24h 04/15/17 Memantine HCl [Namenda -] 10 mg PO BID 03/26/18 Mirabegron [Myrbetriq] 50 mg PO DAILY 06/18/17 Nebivolol [Bystolic -] 5 mg PO DAILY tab 09/17/17 Olanzapine [Zyprexa -] 5 mg PO HS 08/05/18 Docusate Sodium [Colace -] 100 mg PO Q12H PRN capsule 08/09/18 Pantoprazole Sodium [Protonix -] 40 mg PO DAILY #30 tablet.ec 10/11/18 Physical Exam-Neuro Vital Signs: Vital Signs Temperature 98.1 F 01/02/19 14:09 Pulse Rate 55 L 01/02/19 14:09 Respiratory Rate 16 01/02/19 14:09 Blood Pressure 131/54 L 01/02/19 14:09 O2 Sat by Pulse Oximetry (%) 95 01/02/19 09:00 Labs: CBC, BMP 01/02/19 05:30 01/02/19 05:30 - Neuro Exam Level Of Consciousness: Yes: Alert (awake and alert, follows 3 steps, EOMI, no facial, motor no drift or weakness; ) Problem List - Problems (1) Hydrocephalus Code(s): G91.9 - HYDROCEPHALUS, UNSPECIFIED (2) Complicated UTI (urinary tract infection) Code(s): N39.0 - URINARY TRACT INFECTION, SITE NOT SPECIFIED (3) Altered mental status Code(s): R41.82 - ALTERED MENTAL STATUS, UNSPECIFIED Assessment/Plan 88 y/o male with past medical history of Dementia, hx of shunt , renal failure, CAD. Patient was sent by PCP to ER for IV antibiotic therapy after UC tested positive for Klebsiella with ESBL. CT HD 01/02/19 Impression: No definite interval change is identified in comparison to prior exams performed in 2019 and 2018. Ventricular shunt in place. Mild stable dilatation of the lateral ventricles. Note is again made of a punctate hypodense focus within the frontal horn of the right lateral ventricle possibly representing fat. As on the prior exams stable small/very small bilateral frontoparietal convexity chronic subdural hematomas/chronic subdural hygromas are noted. There is no midline displacement. Mild to moderate periventricular and subcortical chronic microvascular ischemic changes are seen. AP : Encephalopathy , secondary to UTI improving , exam nonfocal HX of hydrocephalus with shunt-- CT reviewed; no acute pathology neurologically stable DR ALTAMIRANO
[2019-01-02] MEDS: OLANZapine 5 MG TABLET PO SCH (21:54)
[2019-01-03] MEDS: hydrALAZINE HCL 25 MG TABLET (FP) PO SCH (05:53)
[2019-01-03] MEDS: TAMSULOSIN HCL 0.4 MG CAP PO SCH (09:01)
[2019-01-03] MEDS: ESCITALOPRAM OXALATE 10 MG TABLET (FP) PO SCH (09:02)
[2019-01-03] MEDS: HEPARIN NA (PORCINE) 5,000 UNITS/ML 1ML VIAL SQ SCH (09:02)
[2019-01-03] MEDS: MEMANTINE HCL 10 MG TABLET (FP) PO SCH (09:02)
[2019-01-03] MEDS: PANTOPRAZOLE 40 MG TABLET (FP) PO SCH (09:03)
[2019-01-03 09:07] VITALS: BP 131/57; PULSE 52; TEMP 97.9
[2019-01-03] MEDS: NEBIVOLOL 5 MG TABLET (FP) PO SCH (09:14)
== END 2019-01-03 10:15 | disposition home health service (06) | DRG 682 ==
LOC: JER 10:24 → JERBED 12:14 → J4S 01-01 18:51
PROVIDERS: ADMIT Family Medicine; ATTEND Family Medicine
DX: N17.9 Acute kidney failure, unspecified (principal); G93.41 Metabolic encephalopathy; N39.0 Urinary tract infection, site not specified; I25.10 Atherosclerotic heart disease of native coronary artery without angina pectoris; N40.0 Benign prostatic hyperplasia without lower urinary tract symptoms; E78.5 Hyperlipidemia, unspecified; R82.71 Bacteriuria; I12.9 Hypertensive chronic kidney disease with stage 1 through stage 4 chronic kidney disease, or unspecified chronic kidney disease; N18.9 Chronic kidney disease, unspecified; F03.90 Unspecified dementia, unspecified severity, without behavioral disturbance, psychotic disturbance, mood disturbance, and anxiety
CPT/HCPCS: 36415; 70450-TC; 80048; 80053; 81003; 82962; 83735; 84100; 84436; 84443; 85025; 85027; 87040; 87086; 93005; 93010; 97116-GP; 97161-GP; 99285-25; J1644

== ENCOUNTER 2019-01-25 11:27 | Inpatient (IN) | payer OTHER ==
[2019-01-25] MEDS ORDERED: SODIUM CHLORIDE 0.9% 500 ML INFUS.BAG IV ONE (12:04)
[2019-01-25] MEDS ORDERED: AZTREONAM 1 GM in DEXTROSE 5%-WATER - 50 ML IVPB ONE (12:05)
[2019-01-25] MEDS ORDERED: AZTREONAM 1 GM VIAL (RESTRICTED TO ID) ONE ×2 (12:17→21:48)
--- NOTE | 2019-01-25 13:03 | PDOC ---
Documentation entered by Deena Salazar SCRIBE, acting as scribe for Rupa Schuler MD. Rupa Schuler MD: This documentation has been prepared by the Marie garrison Brenda, SCRIBE, under my direction and personally reviewed by me in its entirety. I confirm that the documentation accurately reflects all work, treatment, procedures, and medical decision making performed by me. 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 Fajardo on 04/13/17, prostate cancer s/p seed implantation, CAD, and hypertension presenting from Dr Rae to the ED for IV antibiotic therapy after UC tested positive for Morganella prior multidrug resistant UTIs including ESBL, Proteus, Actinobacter, Klebsiella , Enterococcus has had multiple admissions, last at [facility] in 12/2018 and another at [facility] for complicated UTIs. As per patient, he has been feeling unwell for the past week, and complains of headache but no pain. As per family,on the bedside, the patient has been experiencing urinary incontinence and frequency. They also note that he complains of chronic back pain, has been lethargic,and has been sundowning. The family also endorses agitation and abusiveness, which they associate with the patient having a UTI. Allergies: NKA Social history: Lives with family. Surgical history: open heart sx for valve replacement 2005, DEALER SALES MANAGER SHUNT Meds: as documented in EMR PMD: Kyra Urologist: Keren 01/25/19 12:58 01/25/19 13:03 Past History - Past Medical History Allergies/Adverse Reactions: Allergies Allergy/AdvReac Type Severity Reaction Status Date / Time No Known Allergies Allergy Verified 01/25/19 11:46 Home Medications: Ambulatory Orders Escitalopram Oxalate [Lexapro -] 10 mg PO DAILY 04/05/17 hydrALAZINE HCL [Apresoline -] 10 mg PO BID 04/05/17 Rosuvastatin [Crestor -] 20 mg PO HS tablet 04/15/17 Tamsulosin HCl [Flomax -] 0.4 mg PO DAILY@0830 cap.er.24h 04/15/17 Memantine HCl [Namenda -] 10 mg PO BID 06/18/17 Nebivolol [Bystolic -] 5 mg PO DAILY tab 09/17/17 Olanzapine [Zyprexa -] 5 mg PO HS 08/05/18 Docusate Sodium [Colace -] 100 mg PO Q12H PRN capsule 08/09/18 Pantoprazole Sodium [Protonix -] 40 mg PO DAILY #30 tablet.ec 10/11/18 Acetaminophen [Tylenol .Regular Strength -] 650 mg PO Q4H PRN tablet 01/03/19 Anemia: No Asthma: No Cancer: Yes (- prostate) Cardiac Disorders: Yes CVA: (NPH, DEALER SALES MANAGER shunt) COPD: No CHF: No DVT: No Dementia: Yes Diabetes: No GI Disorders: No Disorders: Yes (CKD, 1 KIDNEY) HTN: Yes Hypercholesterolemia: Yes Liver Disease: No Psychiatric Problems: Yes (depression) Seizures: No Thyroid Disease: No - Surgical History Abdominal Surgery: No Appendectomy: No Cardiac Surgery: Yes (open heart sx for valve replacement 2005) Cholecystectomy: No Lung Surgery: No Neurologic Surgery: Yes (DEALER SALES MANAGER SHUNT) Orthopedic Surgery: Yes - Immunization History Immunization Up to Date: No (UNKNOWN) - Psycho Social/Smoking Cessation Hx Smoking History: Former smoker Have you smoked in the past 12 months: Yes Number of Cigarettes Smoked Daily: 20 If you are a former smoker, when did you quit?: 1999 Information on smoking cessation initiated: No 'Breaking Loose' booklet given: 08/05/18 Hx Alcohol Use: No Drug/Substance Use Hx: No Substance Use Type: None Hx Substance Use Treatment: No Review of Systems - Review of Systems Able to Perform ROS?: Yes Comments:: 01/25/19 12:21 Constitutional: no fevers or chills. HEENT:(+) headache. No dizziness. No congestion. No visual/hearing disturbances. CVS: no cp or syncope. Resp: no sob. No cough. Gastrointestinal: no abdominal pain, nausea or vomiting. Genitourinary: no hematuria. MUSCULOSKELETAL: (+) back pain. No joint pain and swelling. No neck. SKIN: no redness or skin changes, no discharge, no rash. No wounds. Hematologic: no easy bruising/bleeding. NEUROLOGIC: (+) Agitation and confusion. No dizziness, LOC. No weakness, numbness or tingling. Psych: no anxiety or depression Allergic/Immunologic: no allergies All other systems reviewed and negative, or as documented in HPI. *Physical Exam - Vital Signs Last Vital Signs Temp Pulse Resp BP Pulse Ox 98.4 F 54 L 18 149/49 L 99 01/25/19 11:46 01/25/19 11:46 01/25/19 11:46 01/25/19 11:46 01/25/19 11:46 - Physical Exam Comments: 01/25/19 12:25 General: Well appearing, awake and alert, NAD. HEENT: NCAT, PERRL, EOMI, clear conjunctiva, anicteric, moist mucous membranes , clear oropharynx, no oral lesions.. Neck: neck supple, FROM Resp: CTAB, normal and even respirations, no respiratory distress CVS: RRR, no murmurs, 2+ peripheral pulses throughout, no peripheral edema Abdomen: soft, NTND, no rebound or guarding. No CVAT. Back: nontender, normal inspection and ROM MSK: no edema, BROTHERS x4, ROM intact. No clubbing or cyanosis. normal bulk and tone. Extremities: no calf tenderness Neuro: alert, oriented appropriately; no focal neurologic deficits Skin: warm and well perfused, cap refill <2 sec, normal color 01/25/19 13:01 ED Treatment Course - LABORATORY CBC & Chemistry Diagram: 01/25/19 12:43 01/25/19 12:43 - RADIOLOGY Radiology Studies Ordered: Category Date Time Status CHEST X-RAY PORTABLE* [RAD] Stat Radiology 01/25/19 12:01 Ordered Medical Decision Making - Medical Decision Making 01/25/19 13:01 Vital Signs Temp Pulse Resp BP Pulse Ox 98.4 F 54 L 18 149/49 L 99 01/25/19 11:46 01/25/19 11:46 01/25/19 11:46 01/25/19 11:46 01/25/19 11:46 Sensitivities of recent urine culture reviewed with family member, evaluated the JEANNINE of different sensitivities. Organism is isolated to be Morganella. Will use aztreonam which has sensitivity with JEANNINE less than 4 which is a low as compared to all the other agents. He is also sensitive to amikacin, cefepime, Pipracil and/tazobactam and tobramycin. He has no allergies basic labs and lytes repeat UA and culture. abx with the Aztreonam Laboratory results are at baseline, including his creatinine consistent with his CKD. No WBC count noted. UA is sent with only 4+ protein and 3 WBCs pending cultures. Did review the urine culture as documented from primary office. inpatient ID cs. admit to Dr Rae. 01/25/19 13:30 Discharge - Discharge Information Problems reviewed: Yes Clinical Impression/Diagnosis: Complicated UTI (urinary tract infection), Bacterial infection due to Morganella morganii Condition: Fair - Admission Yes - Follow up/Referral Referrals: Natalya Rae MD [Primary Care Provider] - - Patient Discharge Instructions - Post Discharge Activity
[2019-01-25 13:10] LABS: ALBUMIN 3.5 g/dl (3.4-5.0); BILIRUBIN,TOTAL 0.5 mg/dL (0.2-1); BLOOD UREA NITROGEN 44.9 mg/dL (7-18); CALCIUM 8.7 mg/dL (8.5-10.1); CREATININE 2.4 mg/dL (0.55-1.3); POTASSIUM 4.9 mmol/L (3.5-5.1); TOT PROT 6.3 g/dl (6.4-8.2)
[2019-01-25 13:16] LABS: EPI CELLS 1.4 /HPF (0-5/HPF); HYALINE CASTS 6 /lpf (0-8); PH,URINE 5.5 (5.0-8.0); URINE APPEARANCE CLEAR; URINE BILIRUBIN NEGATIVE (NEGATIVE); URINE COLOR YELLOW; URINE GLUCOSE (UA) TRACE (NEGATIVE); URINE KETONE NEGATIVE (NEGATIVE); URINE LEUK ESTERASE NEGATIVE (NEGATIVE); URINE NITRITE NEGATIVE (NEGATIVE); URINE PROTEIN 4+ (NEGATIVE); URINE RBC 1 /hpf (0-4); URINE UROBILINOGEN 0.2 mg/dL (0.2-1.0); URINE WBC 3 /hpf (0-5)
[2019-01-25 13:18] LABS: BASO % 0.7 % (0-2.0); EOS % 1.6 % (0-4.5); HEMATOCRIT 37.8 % (35.4-49); HEMOGLOBIN 12.5 GM/dL (11.7-16.9); MCH 26.3 pg (25.7-33.7); MCHC 33.2 g/dl (32.0-35.9); MEAN CELL VOLUME 79.1 fl (80-96); MEAN PLT VOLUME 10.3 fl (7.5-11.1); MONO % 7.1 % (3.8-10.2); NEUT % 72.6 % (42.8-82.8); PLATELET COUNT 181 K/MM3 (134-434); RBC 4.78 M/mm3 (4.00-5.60); RDW 14.7 % (11.9-15.9)
[2019-01-25] MEDS ORDERED: ACETAMINOPHEN 325 MG TABLET (FP) PO PRN (13:48)
[2019-01-25] MEDS ORDERED: DOCUSATE SODIUM 100 MG CAPSULE (FP) PO PRN (13:48)
--- NOTE | 2019-01-25 15:54 | HP ---
Admitting History and Physical - Primary Care Physician PCP: Natalya Rae - Admission Chief Complaint: Weakness History of Present Illness: Patient is an 88 y/o male with past medical history of HTN, Dementia, CAD s/p CABG, polycystic kidney disease, congenital solitary kidney, recurrent UTI, normal pressure hydrocephalus s/p SERVICE NOW DEVELOPER shunt, prostate CA s/p seed implantation, CAD, HTN. Patient presented to ER for IV antibiotic therapy after UC was positive for Morganella. On examination patient states not feeling good but is unable to describe further. Unfortunately no family at the bedside to elaborate. Patient denies dysuria, hematuria, urinary frequency. 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: Yes: Dementia, Other (hydrocephalus) Cardiovascular: Yes: CAD, HTN, Hyperlipdemia Renal/: Yes: Renal Inusuff, UTI, Other (Polycystic kidney disease) Rheumatology: Yes: Gout - Past Surgical History Past Surgical History: Yes: CABG - Smoking History Smoking history: Former smoker Have you smoked in the past 12 months: Yes Aproximately how many cigarettes per day: 20 If you are a former smoker, when did you quit?: 1999 - Alcohol/Substance Use Hx Alcohol Use: No History of Substance Use: reports: None - Social History Usual Living Arrangement: Yes: With Spouse ADL: Support Services (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) History of Recent Travel: No Home Medications - Allergies Allergies/Adverse Reactions: Allergies Allergy/AdvReac Type Severity Reaction Status Date / Time No Known Allergies Allergy Verified 01/25/19 11:46 - Home Medications Home Medications: Ambulatory Orders Escitalopram Oxalate [Lexapro -] 10 mg PO DAILY 04/05/17 hydrALAZINE HCL [Apresoline -] 10 mg PO BID 04/05/17 Rosuvastatin [Crestor -] 20 mg PO HS tablet 04/15/17 Tamsulosin HCl [Flomax -] 0.4 mg PO DAILY@0830 cap.er.24h 04/15/17 Memantine HCl [Namenda -] 10 mg PO BID 06/18/17 Olanzapine [Zyprexa -] 5 mg PO HS 08/05/18 Acetaminophen [Tylenol .Regular Strength -] 650 mg PO Q4H PRN tablet 01/03/19 Aspirin 1 tab PO DAILY 01/25/19 Ibuprofen [Motrin -] 800 mg PO PRN 01/25/19 Nebivolol [Bystolic -] 10 mg PO DAILY 01/25/19 Olanzapine 5 mg PO DAILY 01/25/19 Olanzapine 5 mg PO DAILY 01/25/19 Review of Systems - Review of Systems Constitutional: reports: Weakness Eyes: reports: No Symptoms HENT: reports: No Symptoms Neck: reports: No Symptoms Cardiovascular: reports: No Symptoms Respiratory: reports: No Symptoms Gastrointestinal: reports: No Symptoms Genitourinary: reports: No Symptoms Breasts: reports: No Symptoms Reported Musculoskeletal: reports: No Symptoms Integumentary: reports: No Symptoms Neurological: reports: Headache Endocrine: reports: No Symptoms Hematology/Lymphatic: reports: No Symptoms Psychiatric: reports: No Symptoms Physical Examination Vital Signs: Vital Signs Temperature 98.1 F 01/25/19 15:23 Pulse Rate 62 01/25/19 15:23 Respiratory Rate 20 01/25/19 15:23 Blood Pressure 140/52 L 01/25/19 15:23 O2 Sat by Pulse Oximetry (%) 100 01/25/19 15:23 Constitutional: Yes: No Distress, Calm Eyes: Yes: Conjunctiva Clear HENT: Yes: Atraumatic Cardiovascular: Yes: Regular Rate and Rhythm Respiratory: Yes: Regular, CTA Bilaterally Gastrointestinal: Yes: Normal Bowel Sounds, Soft, Tenderness (lower abdomen) Musculoskeletal: Yes: Muscle Weakness Extremities: Yes: WNL Edema: No Neurological: Yes: Alert, Pre-Existing Deficit Psychiatric: Yes: Alert Labs: CBC, BMP 01/25/19 12:43 01/25/19 12:43 Problem List - Problems (1) Bacterial infection due to Morganella morganii Assessment/Plan: -ID consult -no leukocytosis -afebrile -received Azactam in ER -repeat UC pending -UA shows neg leuks, neg nitrite Code(s): A49.8 - OTHER BACTERIAL INFECTIONS OF UNSPECIFIED SITE (2) Complicated UTI (urinary tract infection) Assessment/Plan: -ID consult -no leukocytosis -afebrile -received Azactam in ER -repeat UC pending -UA shows neg leuks, neg nitrite -Urology consult Code(s): N39.0 - URINARY TRACT INFECTION, SITE NOT SPECIFIED (3) CKD (chronic kidney disease) Assessment/Plan: -BUN/Cr 44.9/2.4 -renal consult -monitor renal function Code(s): N18.9 - CHRONIC KIDNEY DISEASE, UNSPECIFIED Qualifiers: Chronic kidney disease stage: unspecified stage Qualified Code(s): N18.9 - Chronic kidney disease, unspecified (4) Dementia Assessment/Plan: -ZYprexa, Citalopram, Namenda Code(s): F03.90 - UNSPECIFIED DEMENTIA WITHOUT BEHAVIORAL DISTURBANCE (5) Hypertension Assessment/Plan: -Hydralazine, Bystolic -low Na diet Code(s): I10 - ESSENTIAL (PRIMARY) HYPERTENSION Qualifiers: Hypertension type: unspecified Qualified Code(s): I10 - Essential (primary ) hypertension (6) Unsteady gait Assessment/Plan: -PT -fall risk precaution Code(s): R26.81 - UNSTEADINESS ON FEET Assessment/Plan see problem list dvt ppx
[2019-01-25 16:14] VITALS: BMI 31.8
[2019-01-25] MEDS ORDERED: AZTREONAM 1 GM VIAL (RESTRICTED TO ID) IVPB SCH (16:45)
--- NOTE | 2019-01-25 16:47 | PN ---
Progress Note (short form) - Note Progress Note: ID consult dictated imp/reccd recurrent uti with frequency and suprapubic discomfort morganella isolated as outpt sensitive to azactam ckd NPH with LOOP TACKER shunt repeat cultures will treat with azactam adjusted for ckd consider urology consult given frequency of his utis Problem List - Problems (1) Complicated UTI (urinary tract infection) Code(s): N39.0 - URINARY TRACT INFECTION, SITE NOT SPECIFIED (2) CKD (chronic kidney disease) Code(s): N18.9 - CHRONIC KIDNEY DISEASE, UNSPECIFIED Qualifiers: Chronic kidney disease stage: unspecified stage Qualified Code(s): N18.9 - Chronic kidney disease, unspecified
[2019-01-25] MEDS ORDERED: AZTREONAM 1 GM in SODIUM CHLORIDE 50 ML IVPB SCH (17:15)
--- NOTE | 2019-01-25 17:50 | CONS ---
DATE OF CONSULTATION: 01/25/2019 REQUESTED BY: Hospitalist Service This is an 88-year-old man with past medical history of dementia. He has a PEST CONTROL SUPERVISOR shunt in place. He was recently in the hospital in December when he was felt to have asymptomatic bacteriuria. He was discharged home off antibiotics. The family reports he has been running to the bathroom every 15 minutes for the last several days Per the family, he has been having tremendous frequency and has been lethargic and sundowning. He has had increased agitation per the family which they attribute to UTIs. He was seen at his doctor's office this week. He had a urine culture sent that was resistant to oral antibiotics and he was sent to the hospital. He is currently awake and alert and really is not complaining of anything. The family states he has not have any fever or chills. He has not had any nausea or vomiting. It is unclear when this admission to [facility] occurred. Whether it was prior to the admission at [facility] in December or after that is not clear. PAST MEDICAL/SURGICAL HISTORY: Notable for dementia, hydrocephalus, coronary artery disease, hypertension, hyperlipidemia, renal insufficiency, polycystic kidneys with frequent urinary tract infections and gout. His urologist is Dr. Goodman. He has normal pressure hydrocephalus has a PEST CONTROL SUPERVISOR shunt. Past history of prostate cancer with seed implants. Upon review of the cardiology consult from July 2018, there is no documented valve replacement. He had a CABG in the past. ALLERGIES: No known drug allergies. SOCIAL HISTORY: He lives at home with his family. He has support services with a home health aide. He is a former smoker. He smoked one pack a day for 10 years. He quit in 1966. REVIEW OF SYSTEMS: As per his , he goes to the bathroom every 15 minutes. PHYSICAL EXAMINATION: VITALS: Temperature is 98, pulse is 50, blood pressure 154/79, respiratory rate 18. HEENT: Normocephalic. Eyes are anicteric. NECK: Supple. LUNGS: Clear to auscultation. HEART: Regular rate and rhythm. ABDOMEN: Soft. He has no CVA tenderness. He does have suprapubic discomfort on exam. EXTREMITIES: No edema. LABS: White count of 8000, hemoglobin of 12.5, platelets of 181. His BUN and creatinine are 44 and 2.4, respectively. He has chronic CKD and this appears to be his baseline. His urinalysis in our ER again has no leukocyte esterase and 3 white cells. Urine and blood cultures have been sent. He was given a dose of Azactam based on the prior cultures. He had a chest x- ray that shows no signs of acute lung pathology. A renal sonogram showed no obstruction. IN SUMMARY: This is an 88-year-old man with: 1. Recurrent urinary tract infection. He is being admitted again for this. He does appear to have frequency and suprapubic discomfort. He has no fever or chills. He has CKD. At this time, I would continue the Azactam. I adjusted for his CKD while awaiting his repeat cultures. 2. Further recommendations to follow. MARTIN YUN M.D. [id number] MTDD
[2019-01-25] MEDS ORDERED: DEXTROSE 5%-WATER - 50 ML IVPB ONE (21:48)
[2019-01-25] MEDS: ROSUVASTATIN CA 20 MG TABLET (FP) PO SCH (22:09)
[2019-01-25] MEDS: HEPARIN NA (PORCINE) 5,000 UNITS/ML 1ML VIAL SQ SCH (22:09)
[2019-01-25] MEDS: MEMANTINE HCL 5 MG TABLET (UD) PO SCH (22:09)
[2019-01-25] MEDS: AZTREONAM 1 GM in DEXTROSE 5%-WATER - 50 ML IVPB SCH (22:09)
[2019-01-25] MEDS: hydrALAZINE HCL 10 MG TABLET PO SCH (22:34)
[2019-01-26 06:06] LABS: BASO % 0.8 % (0-2.0); EOS % 2.9 % (0-4.5); HEMATOCRIT 36.8 % (35.4-49); HEMOGLOBIN 12.3 GM/dL (11.7-16.9); LYMPH % 35.1 % (8-40); MCH 26.2 pg (25.7-33.7); MCHC 33.5 g/dl (32.0-35.9); MEAN CELL VOLUME 78.3 fl (80-96); MEAN PLT VOLUME 9.8 fl (7.5-11.1); MONO % 8.7 % (3.8-10.2); NEUT % 52.5 % (42.8-82.8); PLATELET COUNT 159 K/MM3 (134-434); RDW 14.7 % (11.9-15.9); WHITE BLOOD COUNT 7.4 K/mm3 (4.0-10.0)
[2019-01-26 07:32] LABS: ALBUMIN 3.4 g/dl (3.4-5.0); BILIRUBIN,TOTAL 0.4 mg/dL (0.2-1); BLOOD UREA NITROGEN 40.4 mg/dL (7-18); CALCIUM 8.5 mg/dL (8.5-10.1); CREATININE 2.3 mg/dL (0.55-1.3); MAGNESIUM 2.1 mg/dL (1.8-2.4); PHOSPHOROUS 3.9 mg/dL (2.5-4.9); POTASSIUM 4.8 mmol/L (3.5-5.1); TOT PROT 5.9 g/dl (6.4-8.2)
[2019-01-26] MEDS ORDERED: AZTREONAM 1 GM VIAL (RESTRICTED TO ID) ONE ×2 (08:40→19:55)
[2019-01-26] MEDS ORDERED: DEXTROSE 5%-WATER - 50 ML IVPB ONE ×2 (08:40→19:56)
[2019-01-26] MEDS ORDERED: PT OWN MED DRAWER 7, Y5N ONE (08:40)
[2019-01-26] MEDS: OLANZapine 5 MG TABLET PO SCH (09:07)
[2019-01-26] MEDS: MEMANTINE HCL 5 MG TABLET (UD) PO SCH ×2 (09:07→21:09)
[2019-01-26] MEDS: TAMSULOSIN HCL 0.4 MG CAP PO SCH (09:07)
[2019-01-26] MEDS: AZTREONAM 1 GM in DEXTROSE 5%-WATER - 50 ML IVPB SCH ×2 (09:07→21:08)
[2019-01-26] MEDS: hydrALAZINE HCL 10 MG TABLET PO SCH ×2 (09:08→21:21)
[2019-01-26] MEDS: NEBIVOLOL 5 MG TABLET (FP) PO SCH (09:08)
[2019-01-26] MEDS: ESCITALOPRAM OXALATE 10 MG TABLET (FP) PO SCH (09:08)
[2019-01-26] MEDS: HEPARIN NA (PORCINE) 5,000 UNITS/ML 1ML VIAL SQ SCH ×2 (09:08→21:09)
--- NOTE | 2019-01-26 09:49 | PN ---
Progress Note, Physician Chief Complaint: AWAKE ALERT X 2 WHICH IS BASELINE. +APPETITE AND BM NO FEVERS - Current Medication List Current Medications: Active Medications Acetaminophen (Tylenol -) 650 mg PO Q4H PRN PRN Reason: PAIN LEVEL 1-5 Docusate Sodium (Colace -) 100 mg PO Q12H PRN PRN Reason: CONSTIPATION Escitalopram Oxalate (Lexapro -) 10 mg PO DAILY [facility] Last Admin: 01/26/19 09:08 Dose: 10 mg Heparin Sodium (Porcine) (Heparin -) 5,000 unit SQ BID [facility] Last Admin: 01/26/19 09:08 Dose: 5,000 unit Hydralazine HCl (Apresoline -) 10 mg PO BID [facility] Last Admin: 01/26/19 09:08 Dose: 10 mg Aztreonam 1 gm/ Dextrose 50 mls @ 100 mls/hr IVPB BID [facility] Last Admin: 01/26/19 09:07 Dose: 100 mls/hr Memantine (Namenda -) 10 mg PO BID [facility] Last Admin: 01/26/19 09:07 Dose: 10 mg Nebivolol (Bystolic -) 10 mg PO DAILY [facility] Last Admin: 01/26/19 09:08 Dose: 10 mg Olanzapine (Zyprexa -) 5 mg PO DAILY [facility] Last Admin: 01/26/19 09:07 Dose: 5 mg Rosuvastatin Calcium (Crestor -) 20 mg PO HS [facility] Last Admin: 01/25/19 22:09 Dose: 20 mg Solifenacin (Vesicare -) 5 mg PO DAILY [facility] Tamsulosin HCl (Flomax -) 0.4 mg PO DAILY@0830 [facility] Last Admin: 01/26/19 09:07 Dose: 0.4 mg - Objective Vital Signs: Vital Signs Temperature 97.8 F 01/26/19 09:11 Pulse Rate 57 L 01/26/19 09:11 Respiratory Rate 18 01/26/19 09:00 Blood Pressure 149/63 01/26/19 09:11 O2 Sat by Pulse Oximetry (%) 100 01/26/19 09:00 Constitutional: Yes: Mild Distress Cardiovascular: Yes: Regular Rate and Rhythm Respiratory: Yes: WNL Gastrointestinal: Yes: Soft, Abdomen, Obese Genitourinary: Yes: Incontinence Musculoskeletal: Yes: Muscle Weakness Extremities: Yes: WNL Edema: No Integumentary: Yes: WNL Wound/Incision: Yes: Clean/Dry Neurological: Yes: Confusion Psychiatric: Yes: Other Labs: CBC, BMP 01/26/19 05:42 01/26/19 05:42 Problem List - Problems (1) Bacterial infection due to Morganella morganii Code(s): A49.8 - OTHER BACTERIAL INFECTIONS OF UNSPECIFIED SITE (2) Complicated UTI (urinary tract infection) Code(s): N39.0 - URINARY TRACT INFECTION, SITE NOT SPECIFIED (3) GARRISON (acute kidney injury) Code(s): N17.9 - ACUTE KIDNEY FAILURE, UNSPECIFIED (4) Acute metabolic encephalopathy Code(s): G93.41 - METABOLIC ENCEPHALOPATHY (5) Acute on chronic kidney failure Code(s): N17.9 - ACUTE KIDNEY FAILURE, UNSPECIFIED; N18.9 - CHRONIC KIDNEY DISEASE, UNSPECIFIED (6) Altered mental status Code(s): R41.82 - ALTERED MENTAL STATUS, UNSPECIFIED (7) BPH (benign prostatic hyperplasia) Code(s): N40.0 - BENIGN PROSTATIC HYPERPLASIA WITHOUT LOWER URINRY TRACT SYMP (8) Dementia Code(s): F03.90 - UNSPECIFIED DEMENTIA WITHOUT BEHAVIORAL DISTURBANCE (9) Diabetes Code(s): E11.9 - TYPE 2 DIABETES MELLITUS WITHOUT COMPLICATIONS (10) Difficulty hearing Code(s): H91.90 - UNSPECIFIED HEARING LOSS, UNSPECIFIED EAR (11) Hydronephrosis Code(s): N13.30 - UNSPECIFIED HYDRONEPHROSIS (12) Hypertension Code(s): I10 - ESSENTIAL (PRIMARY) HYPERTENSION Qualifiers: Hypertension type: unspecified Qualified Code(s): I10 - Essential (primary ) hypertension (13) NPH (normal pressure hydrocephalus) Code(s): G91.2 - (IDIOPATHIC) NORMAL PRESSURE HYDROCEPHALUS Assessment/Plan IV ABX FOR OUTPATIENT + CULTURE AND SENSITIVITY START VESICARE 5MG DAILY UROLOGY FOR INTERVENTION THIS WEEK FALL RISKS OOB TO CHAIR WITH ASSIST/PT
[2019-01-26] MEDS: SOLIFENACIN SUCCINATE 5 MG TAB PO SCH (10:55)
--- NOTE | 2019-01-26 11:53 | CON.NEP ---
Consult Consult Specialty:: nephrology Reason for Consultation:: renal insuff - History of Present Illness Chief Complaint: frequency History of Present Illness: Patient is an 88 y/o male with past medical history of HTN, Dementia, CAD s/p CABG, polycystic kidney disease, congenital solitary kidney, recurrent UTI, normal pressure hydrocephalus s/p CUTTING TOOL SHARPENER shunt, prostate CA s/p seed implantation, CAD, HTN. Patient presented to ER for IV antibiotic therapy after UC was positive for Morganella. On examination patient states not feeling good but is unable to describe further. He denies fever. states he had nocturia at least 15 times. 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: Dementia, Other (hydrocephalus) Cardio/Vascular: Yes: CAD, HTN, Hyperlipdemia Renal/: Yes: Renal Inusuff, UTI, Other (Polycystic kidney disease) Rheumatology: Yes: Gout - Past Surgical History Past Surgical History: Yes: CABG - Alcohol/Substance Use Hx Alcohol Use: No History of Substance Use: reports: None - Smoking History Smoking history: Former smoker Have you smoked in the past 12 months: Yes Aproximately how many cigarettes per day: 20 If you are a former smoker, when did you quit?: 1999 - Social History Usual Living Arrangement: With Spouse ADL: Support Services (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) History of Recent Travel: No Home Medications - Allergies Allergies/Adverse Reactions: Allergies Allergy/AdvReac Type Severity Reaction Status Date / Time No Known Allergies Allergy Verified 01/25/19 11:46 - Home Medications Home Medications: Ambulatory Orders Escitalopram Oxalate [Lexapro -] 10 mg PO DAILY 04/05/17 hydrALAZINE HCL [Apresoline -] 10 mg PO BID 04/05/17 Rosuvastatin [Crestor -] 20 mg PO HS tablet 04/15/17 Tamsulosin HCl [Flomax -] 0.4 mg PO DAILY@0830 cap.er.24h 04/15/17 Memantine HCl [Namenda -] 10 mg PO BID 06/18/17 Olanzapine [Zyprexa -] 5 mg PO HS 08/05/18 Acetaminophen [Tylenol .Regular Strength -] 650 mg PO Q4H PRN tablet 01/03/19 Aspirin 1 tab PO DAILY 01/25/19 Ibuprofen [Motrin -] 800 mg PO PRN 01/25/19 Nebivolol [Bystolic -] 10 mg PO DAILY 01/25/19 Olanzapine 5 mg PO DAILY 01/25/19 Olanzapine 5 mg PO DAILY 01/25/19 Review of Systems - Review of Systems Constitutional: reports: Weakness Eyes: reports: No Symptoms HENT: reports: No Symptoms Neck: reports: No Symptoms Cardiovascular: reports: No Symptoms Respiratory: reports: No Symptoms Gastrointestinal: reports: No Symptoms Genitourinary: reports: Frequency Breasts: reports: No Symptoms Reported Musculoskeletal: reports: No Symptoms Integumentary: reports: No Symptoms Neurological: reports: No Symptoms Endocrine: reports: No Symptoms Hematology/Lymphatic: reports: No Symptoms Nephrology Consult - Height Height: 5 ft 3 in - Weight Weight: 179 lb 8 oz - BMI Body Mass Index (BMI): 31.8 - Lab Results CBC,BMP: CBC, BMP 01/26/19 05:42 01/26/19 05:42 Anion Gap: Anion Gap Anion Gap 7 MMOL/L (8-16) L 01/26/19 05:42 - Imaging Chest X-ray: Report Reviewed (clear) - Physical Examination Vital Signs: Vital Signs Temperature 97.8 F 01/26/19 09:11 Pulse Rate 57 L 01/26/19 09:11 Respiratory Rate 18 01/26/19 09:00 Blood Pressure 149/63 01/26/19 09:11 O2 Sat by Pulse Oximetry (%) 100 01/26/19 09:00 Constitutional: Yes: Well Nourished, No Distress Eyes: Yes: Conjunctiva Clear, EOM Intact HENT: Yes: Atraumatic, Normocephalic Neck: Yes: Supple, Trachea Midline Cardiovascular: Yes: Regular Rate and Rhythm Respiratory: Yes: Regular, CTA Bilaterally Gastrointestinal: Yes: Normal Bowel Sounds. 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
[2019-01-26] MEDS: ROSUVASTATIN CA 20 MG TABLET (FP) PO SCH (21:09)
[2019-01-27] MEDS ORDERED: PT OWN MED DRAWER 7, Y5N ONE ×2 (05:00→09:23)
[2019-01-27] MEDS ORDERED: DEXTROSE 5%-WATER - 50 ML IVPB ONE (09:23)
[2019-01-27] MEDS ORDERED: AZTREONAM 1 GM VIAL (RESTRICTED TO ID) ONE (09:23)
--- NOTE | 2019-01-27 10:25 | EKG ---
Test Reason : Blood Pressure : / mmHG Vent. Rate : 047 BPM Atrial Rate : 047 BPM P-R Int : 152 ms QRS Dur : 142 ms QT Int : 492 ms P-R-T Axes : 010 005 019 degrees QTc Int : 435 ms SINUS BRADYCARDIA RIGHT BUNDLE BRANCH BLOCK CANNOT RULE OUT INFERIOR INFARCT (CITED ON OR BEFORE 02-NOV-2017) ABNORMAL ECG WHEN COMPARED WITH ECG OF 31-DEC-2018 13:49, NO SIGNIFICANT CHANGE WAS FOUND Confirmed by NAHED JUAREZ, NOEMY ([id number]) on 01/27/2019 10:24:42 AM Referred By: Confirmed By:NOEMY DOCKERY MD
[2019-01-27] MEDS: MEMANTINE HCL 5 MG TABLET (UD) PO SCH ×2 (10:33→21:32)
[2019-01-27] MEDS: ESCITALOPRAM OXALATE 10 MG TABLET (FP) PO SCH (10:33)
[2019-01-27] MEDS: NEBIVOLOL 5 MG TABLET (FP) PO SCH (10:33)
[2019-01-27] MEDS: AZTREONAM 1 GM in DEXTROSE 5%-WATER - 50 ML IVPB SCH (10:34)
[2019-01-27] MEDS: HEPARIN NA (PORCINE) 5,000 UNITS/ML 1ML VIAL SQ SCH ×2 (10:34→21:32)
[2019-01-27] MEDS: TAMSULOSIN HCL 0.4 MG CAP PO SCH (10:34)
[2019-01-27] MEDS: hydrALAZINE HCL 10 MG TABLET PO SCH ×2 (10:35→21:32)
[2019-01-27] MEDS: SOLIFENACIN SUCCINATE 5 MG TAB PO SCH (10:35)
[2019-01-27] MEDS: OLANZapine 5 MG TABLET PO SCH (10:42)
--- NOTE | 2019-01-27 10:46 | PN ---
Progress Note, Physician Chief Complaint: UTI Dementia History of Present Illness: Previous notes and events reviewed awake and alert NAD no acute events overnight denies dysuria or hematuria UC negative - Current Medication List Current Medications: Active Medications Acetaminophen (Tylenol -) 650 mg PO Q4H PRN PRN Reason: PAIN LEVEL 1-5 Docusate Sodium (Colace -) 100 mg PO Q12H PRN PRN Reason: CONSTIPATION Escitalopram Oxalate (Lexapro -) 10 mg PO DAILY [facility] Last Admin: 01/27/19 10:33 Dose: 10 mg Heparin Sodium (Porcine) (Heparin -) 5,000 unit SQ BID [facility] Last Admin: 01/27/19 10:34 Dose: 5,000 unit Hydralazine HCl (Apresoline -) 10 mg PO BID [facility] Last Admin: 01/27/19 10:35 Dose: 10 mg Aztreonam 1 gm/ Dextrose 50 mls @ 100 mls/hr IVPB BID [facility] Last Admin: 01/27/19 10:34 Dose: 100 mls/hr Memantine (Namenda -) 10 mg PO BID [facility] Last Admin: 01/27/19 10:33 Dose: 10 mg Nebivolol (Bystolic -) 10 mg PO DAILY [facility] Last Admin: 01/27/19 10:33 Dose: 10 mg Olanzapine (Zyprexa -) 5 mg PO DAILY [facility] Last Admin: 01/27/19 10:42 Dose: 5 mg Rosuvastatin Calcium (Crestor -) 20 mg PO HS [facility] Last Admin: 01/26/19 21:09 Dose: 20 mg Solifenacin (Vesicare -) 5 mg PO DAILY [facility] Last Admin: 01/27/19 10:35 Dose: 5 mg Tamsulosin HCl (Flomax -) 0.4 mg PO DAILY@0830 [facility] Last Admin: 01/27/19 10:34 Dose: 0.4 mg - Objective Vital Signs: Vital Signs Temperature 97.4 F L 01/27/19 06:00 Pulse Rate 55 L 01/27/19 06:00 Respiratory Rate 18 01/27/19 06:00 Blood Pressure 148/71 01/27/19 06:00 O2 Sat by Pulse Oximetry (%) 100 01/26/19 21:00 Constitutional: Yes: No Distress, Calm Eyes: Yes: Conjunctiva Clear HENT: Yes: Atraumatic Cardiovascular: Yes: Regular Rate and Rhythm Respiratory: Yes: Regular, CTA Bilaterally Gastrointestinal: Yes: Normal Bowel Sounds, Soft Musculoskeletal: Yes: Muscle Weakness Extremities: Yes: WNL Edema: No Neurological: Yes: Alert, Oriented Psychiatric: Yes: Alert Labs: CBC, BMP 01/26/19 05:42 01/26/19 05:42 Microbiology 01/25/19 12:43 Blood - Peripheral Venous Blood Culture - Preliminary NO GROWTH OBTAINED AFTER 48 HOURS, INCUBATION TO CONTINUE FOR 3 DAYS. 01/25/19 12:43 Blood - Peripheral Venous Blood Culture - Preliminary NO GROWTH OBTAINED AFTER 48 HOURS, INCUBATION TO CONTINUE FOR 3 DAYS. 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 Assessment/Plan: -ID consult -no leukocytosis -afebrile -received Azactam in ER -repeat UC neg -UA shows neg leuks, neg nitrite Code(s): A49.8 - OTHER BACTERIAL INFECTIONS OF UNSPECIFIED SITE (2) Complicated UTI (urinary tract infection) Assessment/Plan: -ID consult -no leukocytosis -afebrile -received Azactam in ER -UC neg -UA shows neg leuks, neg nitrite -Urology consult Code(s): N39.0 - URINARY TRACT INFECTION, SITE NOT SPECIFIED (3) CKD (chronic kidney disease) Assessment/Plan: -BUN/Cr 40.4/2.3 -renal on board -monitor renal function -Renal US Code(s): N18.9 - CHRONIC KIDNEY DISEASE, UNSPECIFIED Qualifiers: Chronic kidney disease stage: unspecified stage Qualified Code(s): N18.9 - Chronic kidney disease, unspecified (4) Dementia Assessment/Plan: -ZYprexa, Citalopram, Namenda Code(s): F03.90 - UNSPECIFIED DEMENTIA WITHOUT BEHAVIORAL DISTURBANCE (5) Hypertension Assessment/Plan: -Hydralazine, Bystolic -low Na diet Code(s): I10 - ESSENTIAL (PRIMARY) HYPERTENSION Qualifiers: Hypertension type: unspecified Qualified Code(s): I10 - Essential (primary ) hypertension (6) Unsteady gait Assessment/Plan: -PT -fall risk precaution Code(s): R26.81 - UNSTEADINESS ON FEET Assessment/Plan see problem list dvt ppx
--- NOTE | 2019-01-27 14:18 | PN ---
Progress Note (short form) - Note Progress Note: reports he is confused Vital Signs Period Temp Pulse Resp BP Sys/Handy Pulse Ox Last 24 Hr 97.4 F-98.4 F 47-55 18-20 115-167/56-75 100 cor-rrr lungs decreased bs at bases abd soft,nt no suprapubic tenderness ext no edema CBC, BMP 01/26/19 05:42 01/26/19 05:42 Laboratory Tests 01/25/19 12:43 Urine Nitrite Negative Ur Leukocyte Esterase Negative Urine WBC (Auto) 3 Microbiology 01/25/19 12:43 Blood - Peripheral Venous Blood Culture - Preliminary NO GROWTH OBTAINED AFTER 48 HOURS, INCUBATION TO CONTINUE FOR 3 DAYS. 01/25/19 12:43 Blood - Peripheral Venous Blood Culture - Preliminary NO GROWTH OBTAINED AFTER 48 HOURS, INCUBATION TO CONTINUE FOR 3 DAYS. 01/25/19 12:43 Urine - Urine Clean Catch Urine Culture - Final NO GROWTH OBTAINED imp/reccd cultures and UA are negative- bladder sono no urinary retention would d/c antibioitcs ckd NPH with BATTERY ASSEMBLER DRY CELL shunt Problem List - Problems (1) Complicated UTI (urinary tract infection) Code(s): N39.0 - URINARY TRACT INFECTION, SITE NOT SPECIFIED (2) CKD (chronic kidney disease) Code(s): N18.9 - CHRONIC KIDNEY DISEASE, UNSPECIFIED Qualifiers: Chronic kidney disease stage: unspecified stage Qualified Code(s): N18.9 - Chronic kidney disease, unspecified
--- NOTE | 2019-01-27 15:51 | PN ---
Progress Note, Physician History of Present Illness: Pt seen and examined at bedside. He is awake and appears comfortable. - Current Medication List Current Medications: Active Medications Acetaminophen (Tylenol -) 650 mg PO Q4H PRN PRN Reason: PAIN LEVEL 1-5 Docusate Sodium (Colace -) 100 mg PO Q12H PRN PRN Reason: CONSTIPATION Escitalopram Oxalate (Lexapro -) 10 mg PO DAILY [facility] Last Admin: 01/27/19 10:33 Dose: 10 mg Heparin Sodium (Porcine) (Heparin -) 5,000 unit SQ BID [facility] Last Admin: 01/27/19 10:34 Dose: 5,000 unit Hydralazine HCl (Apresoline -) 10 mg PO BID [facility] Last Admin: 01/27/19 10:35 Dose: 10 mg Memantine (Namenda -) 10 mg PO BID [facility] Last Admin: 01/27/19 10:33 Dose: 10 mg Nebivolol (Bystolic -) 10 mg PO DAILY [facility] Last Admin: 01/27/19 10:33 Dose: 10 mg Olanzapine (Zyprexa -) 5 mg PO DAILY [facility] Last Admin: 01/27/19 10:42 Dose: 5 mg Rosuvastatin Calcium (Crestor -) 20 mg PO HS [facility] Last Admin: 01/26/19 21:09 Dose: 20 mg Solifenacin (Vesicare -) 5 mg PO DAILY [facility] Last Admin: 01/27/19 10:35 Dose: 5 mg Tamsulosin HCl (Flomax -) 0.4 mg PO DAILY@0830 [facility] Last Admin: 01/27/19 10:34 Dose: 0.4 mg - Objective Vital Signs: Vital Signs Temperature 98.8 F 01/27/19 15:23 Pulse Rate 49 L 01/27/19 15:23 Respiratory Rate 18 01/27/19 15:23 Blood Pressure 123/49 L 01/27/19 15:23 O2 Sat by Pulse Oximetry (%) 100 01/27/19 09:00 Constitutional: Yes: Calm Eyes: Yes: Conjunctiva Clear HENT: Yes: Atraumatic Neck: Yes: Supple Cardiovascular: Yes: S1, S2 Respiratory: Yes: CTA Bilaterally Gastrointestinal: Yes: Normal Bowel Sounds, Soft Musculoskeletal: Yes: WNL Edema: No Integumentary: Yes: WNL Neurological: Yes: Confusion Labs: CBC, BMP 01/26/19 05:42 01/26/19 05:42 Assessment/Plan Current Medications Generic Name Dose Route Start Last Admin Trade Name Marla PRN Reason Stop Dose Admin Acetaminophen 650 mg 01/25/19 13:48 Tylenol - PO Q4H PRN PAIN LEVEL 1-5 Docusate Sodium 100 mg 01/25/19 13:48 Colace - PO Q12H PRN CONSTIPATION Escitalopram Oxalate 10 mg 01/26/19 10:00 01/27/19 10:33 Lexapro - PO 10 mg DAILY [facility] Administration Heparin Sodium (Porcine) 5,000 unit 01/25/19 22:00 01/27/19 10:34 Heparin - SQ 5,000 unit BID [facility] Administration Hydralazine HCl 10 mg 01/25/19 22:00 01/27/19 10:35 Apresoline - PO 10 mg BID [facility] Administration Memantine 10 mg 01/25/19 22:00 01/27/19 10:33 Namenda - PO 10 mg BID [facility] Administration Nebivolol 10 mg 01/26/19 10:00 01/27/19 10:33 Bystolic - PO 10 mg DAILY [facility] Administration Olanzapine 5 mg 01/26/19 10:00 01/27/19 10:42 Zyprexa - PO 5 mg DAILY [facility] Administration Rosuvastatin Calcium 20 mg 01/25/19 22:00 01/26/19 21:09 Crestor - PO 20 mg HS [facility] Administration Solifenacin 5 mg 01/26/19 10:00 01/27/19 10:35 Vesicare - PO 5 mg DAILY [facility] Administration Tamsulosin HCl 0.4 mg 01/26/19 08:30 01/27/19 10:34 Flomax - PO 0.4 mg DAILY@0830 [facility] Administration Impression 1. CKD 2. PKD 3. UTI 4. HTN 5. GARRISON 6. bilateral subdural hygromas 7. prostate cancer 8. dementia 9. hyperlipidemia Plan - monitor renal function - abx stopped today - check renal ultrasound - avoid nsaids
[2019-01-27] MEDS: ROSUVASTATIN CA 20 MG TABLET (FP) PO SCH (21:32)
[2019-01-28 07:33] LABS: HEMATOCRIT 37.2 % (35.4-49); HEMOGLOBIN 11.8 GM/dL (11.7-16.9); MCHC 31.8 g/dl (32.0-35.9); MEAN CELL VOLUME 78.6 fl (80-96); MEAN PLT VOLUME 10.1 fl (7.5-11.1); PLATELET COUNT 161 K/MM3 (134-434); RBC 4.73 M/mm3 (4.00-5.60); RDW 14.7 % (11.9-15.9)
[2019-01-28 07:39] LABS: ALBUMIN 3.2 g/dl (3.4-5.0); BILIRUBIN,TOTAL 0.2 mg/dL (0.2-1); BLOOD UREA NITROGEN 61.5 mg/dL (7-18); CALCIUM 8.6 mg/dL (8.5-10.1); CREATININE 2.6 mg/dL (0.55-1.3); POTASSIUM 4.7 mmol/L (3.5-5.1)
[2019-01-28] MEDS: TAMSULOSIN HCL 0.4 MG CAP PO SCH (08:54)
[2019-01-28] MEDS: MEMANTINE HCL 5 MG TABLET (UD) PO SCH ×2 (10:52→22:19)
[2019-01-28] MEDS: ESCITALOPRAM OXALATE 10 MG TABLET (FP) PO SCH (10:52)
[2019-01-28] MEDS: hydrALAZINE HCL 10 MG TABLET PO SCH ×2 (10:53→22:18)
[2019-01-28] MEDS: HEPARIN NA (PORCINE) 5,000 UNITS/ML 1ML VIAL SQ SCH ×2 (10:53→22:19)
[2019-01-28] MEDS: OLANZapine 5 MG TABLET PO SCH (10:53)
[2019-01-28] MEDS: SOLIFENACIN SUCCINATE 5 MG TAB PO SCH (10:53)
[2019-01-28] MEDS: NEBIVOLOL 5 MG TABLET (FP) PO SCH (10:55)
--- NOTE | 2019-01-28 15:59 | PN ---
Progress Note, Physician Chief Complaint: UTI Dementia History of Present Illness: Previous notes and events reviewed awake and alert NAD no acute events overnight denies dysuria or hematuria at bedside states that he is more confused today - Current Medication List Current Medications: Active Medications Acetaminophen (Tylenol -) 650 mg PO Q4H PRN PRN Reason: PAIN LEVEL 1-5 Docusate Sodium (Colace -) 100 mg PO Q12H PRN PRN Reason: CONSTIPATION Escitalopram Oxalate (Lexapro -) 10 mg PO DAILY [facility] Last Admin: 01/28/19 10:52 Dose: 10 mg Heparin Sodium (Porcine) (Heparin -) 5,000 unit SQ BID [facility] Last Admin: 01/28/19 10:53 Dose: 5,000 unit Hydralazine HCl (Apresoline -) 10 mg PO BID [facility] Last Admin: 01/28/19 10:53 Dose: 10 mg Memantine (Namenda -) 10 mg PO BID [facility] Last Admin: 01/28/19 10:52 Dose: 10 mg Nebivolol (Bystolic -) 10 mg PO DAILY [facility] Last Admin: 01/28/19 10:55 Dose: Not Given Olanzapine (Zyprexa -) 5 mg PO DAILY [facility] Last Admin: 01/28/19 10:53 Dose: 5 mg Rosuvastatin Calcium (Crestor -) 20 mg PO HS [facility] Last Admin: 01/27/19 21:32 Dose: 20 mg Solifenacin (Vesicare -) 5 mg PO DAILY [facility] Last Admin: 01/28/19 10:53 Dose: 5 mg Tamsulosin HCl (Flomax -) 0.4 mg PO DAILY@0830 [facility] Last Admin: 01/28/19 08:54 Dose: 0.4 mg - Objective Vital Signs: Vital Signs Temperature 97.4 F L 01/28/19 13:45 Pulse Rate 52 L 01/28/19 13:45 Respiratory Rate 20 01/28/19 13:45 Blood Pressure 143/50 L 01/28/19 13:45 O2 Sat by Pulse Oximetry (%) 100 01/27/19 21:00 Constitutional: Yes: No Distress, Calm Eyes: Yes: Conjunctiva Clear HENT: Yes: Atraumatic Cardiovascular: Yes: Regular Rate and Rhythm Respiratory: Yes: Regular, CTA Bilaterally Gastrointestinal: Yes: Normal Bowel Sounds, Soft Musculoskeletal: Yes: Muscle Weakness Extremities: Yes: WNL Edema: No Neurological: Yes: Alert, Confusion Psychiatric: Yes: Alert Labs: CBC, BMP 01/28/19 06:05 01/28/19 06:05 Microbiology 01/25/19 12:43 Blood - Peripheral Venous Blood Culture - Preliminary NO GROWTH OBTAINED AFTER 72 HOURS, INCUBATION TO CONTINUE FOR 2 DAYS. 01/25/19 12:43 Blood - Peripheral Venous Blood Culture - Preliminary NO GROWTH OBTAINED AFTER 72 HOURS, INCUBATION TO CONTINUE FOR 2 DAYS. 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 Assessment/Plan: -ID consult -no leukocytosis -afebrile -repeat UC neg -UA shows neg leuks, neg nitrite Code(s): A49.8 - OTHER BACTERIAL INFECTIONS OF UNSPECIFIED SITE (2) Complicated UTI (urinary tract infection) Assessment/Plan: -ID consult -no leukocytosis -afebrile -UC neg -UA shows neg leuks, neg nitrite -Urology consult Code(s): N39.0 - URINARY TRACT INFECTION, SITE NOT SPECIFIED (3) CKD (chronic kidney disease) Assessment/Plan: -BUN/Cr 61.5/2.6 -renal on board -monitor renal function -Renal US shows that both kidneys are enlarged R>L, right renal hydronephrosis, multiple left renal cysts Code(s): N18.9 - CHRONIC KIDNEY DISEASE, UNSPECIFIED Qualifiers: Chronic kidney disease stage: unspecified stage Qualified Code(s): N18.9 - Chronic kidney disease, unspecified (4) Dementia Assessment/Plan: -ZYprexa, Citalopram, Namenda Code(s): F03.90 - UNSPECIFIED DEMENTIA WITHOUT BEHAVIORAL DISTURBANCE (5) Hypertension Assessment/Plan: -Hydralazine, Bystolic -low Na diet Code(s): I10 - ESSENTIAL (PRIMARY) HYPERTENSION Qualifiers: Hypertension type: unspecified Qualified Code(s): I10 - Essential (primary ) hypertension (6) Unsteady gait Assessment/Plan: -PT -fall risk precaution Code(s): R26.81 - UNSTEADINESS ON FEET Assessment/Plan see problem list dvt ppx
--- NOTE | 2019-01-28 17:19 | PN ---
Progress Note, Physician History of Present Illness: Pt seen and examined at bedside. He is awake and appears comfortable. He denies shortness of breath. - Current Medication List Current Medications: Active Medications Acetaminophen (Tylenol -) 650 mg PO Q4H PRN PRN Reason: PAIN LEVEL 1-5 Docusate Sodium (Colace -) 100 mg PO Q12H PRN PRN Reason: CONSTIPATION Escitalopram Oxalate (Lexapro -) 10 mg PO DAILY [facility] Last Admin: 01/28/19 10:52 Dose: 10 mg Heparin Sodium (Porcine) (Heparin -) 5,000 unit SQ BID [facility] Last Admin: 01/28/19 10:53 Dose: 5,000 unit Hydralazine HCl (Apresoline -) 10 mg PO BID [facility] Last Admin: 01/28/19 10:53 Dose: 10 mg Memantine (Namenda -) 10 mg PO BID [facility] Last Admin: 01/28/19 10:52 Dose: 10 mg Nebivolol (Bystolic -) 10 mg PO DAILY [facility] Last Admin: 01/28/19 10:55 Dose: Not Given Olanzapine (Zyprexa -) 5 mg PO DAILY [facility] Last Admin: 01/28/19 10:53 Dose: 5 mg Rosuvastatin Calcium (Crestor -) 20 mg PO HS [facility] Last Admin: 01/27/19 21:32 Dose: 20 mg Solifenacin (Vesicare -) 5 mg PO DAILY [facility] Last Admin: 01/28/19 10:53 Dose: 5 mg Tamsulosin HCl (Flomax -) 0.4 mg PO DAILY@0830 [facility] Last Admin: 01/28/19 08:54 Dose: 0.4 mg - Objective Vital Signs: Vital Signs Temperature 97.4 F L 01/28/19 13:45 Pulse Rate 52 L 01/28/19 13:45 Respiratory Rate 20 01/28/19 13:45 Blood Pressure 143/50 L 01/28/19 13:45 O2 Sat by Pulse Oximetry (%) 95 01/28/19 09:00 Constitutional: Yes: Calm Eyes: Yes: Conjunctiva Clear HENT: Yes: Atraumatic Neck: Yes: Supple Cardiovascular: Yes: S1, S2 Respiratory: Yes: CTA Bilaterally Gastrointestinal: Yes: Soft Genitourinary: Yes: WNL Musculoskeletal: Yes: WNL Edema: No Neurological: Yes: Confusion Labs: CBC, BMP 01/28/19 06:05 01/28/19 06:05 Assessment/Plan Current Medications Generic Name Dose Route Start Last Admin Trade Name Marla PRN Reason Stop Dose Admin Acetaminophen 650 mg 01/25/19 13:48 Tylenol - PO Q4H PRN PAIN LEVEL 1-5 Docusate Sodium 100 mg 01/25/19 13:48 Colace - PO Q12H PRN CONSTIPATION Escitalopram Oxalate 10 mg 01/26/19 10:00 01/28/19 10:52 Lexapro - PO 10 mg DAILY [facility] Administration Heparin Sodium (Porcine) 5,000 unit 01/25/19 22:00 01/28/19 10:53 Heparin - SQ 5,000 unit BID [facility] Administration Hydralazine HCl 10 mg 01/25/19 22:00 01/28/19 10:53 Apresoline - PO 10 mg BID [facility] Administration Memantine 10 mg 01/25/19 22:00 01/28/19 10:52 Namenda - PO 10 mg BID [facility] Administration Nebivolol 10 mg 01/26/19 10:00 01/28/19 10:55 Bystolic - PO Not Given DAILY [facility] Olanzapine 5 mg 01/26/19 10:00 01/28/19 10:53 Zyprexa - PO 5 mg DAILY [facility] Administration Rosuvastatin Calcium 20 mg 01/25/19 22:00 01/27/19 21:32 Crestor - PO 20 mg HS [facility] Administration Solifenacin 5 mg 01/26/19 10:00 01/28/19 10:53 Vesicare - PO 5 mg DAILY [facility] Administration Tamsulosin HCl 0.4 mg 01/26/19 08:30 01/28/19 08:54 Flomax - PO 0.4 mg DAILY@0830 [facility] Administration Impression 1. CKD 2. PKD 3. UTI 4. HTN 5. GARRISON 6. bilateral subdural hygromas 7. prostate cancer 8. dementia 9. hyperlipidemia 10. right hydro Plan - right hydro on ultrasound - urology eval pending - repeat labs in am - renal function worsening - avoid nsaids
[2019-01-28] MEDS: ROSUVASTATIN CA 20 MG TABLET (FP) PO SCH (22:19)
[2019-01-29 07:07] LABS: HEMATOCRIT 35.4 % (35.4-49); HEMOGLOBIN 11.4 GM/dL (11.7-16.9); MCH 25.3 pg (25.7-33.7); MCHC 32.1 g/dl (32.0-35.9); MEAN CELL VOLUME 78.8 fl (80-96); MEAN PLT VOLUME 10.1 fl (7.5-11.1); PLATELET COUNT 151 K/MM3 (134-434); RBC 4.49 M/mm3 (4.00-5.60); RDW 14.6 % (11.9-15.9); WHITE BLOOD COUNT 7.9 K/mm3 (4.0-10.0)
[2019-01-29 07:32] LABS: ALBUMIN 3.3 g/dl (3.4-5.0); BILIRUBIN,TOTAL 0.3 mg/dL (0.2-1); BLOOD UREA NITROGEN 62.4 mg/dL (7-18); CALCIUM 8.4 mg/dL (8.5-10.1); CREATININE 2.5 mg/dL (0.55-1.3); POTASSIUM 4.8 mmol/L (3.5-5.1)
--- NOTE | 2019-01-29 07:57 | CONSULT ---
Consult - text type - Consultation Consultation Note: CC: Recurrent uti with neurogenic bladder hpi: Patient is an 88 year old male with history of CAP s/p RT and BPH on flomax 0.4 mg daily. The patient was on Myrbetriq which was d/c'ed due to recurrent uti's. The discontinuation of Myrbetriq did not alleviate the recurrence rate of the uti's however did substantially negatively impact the patient's urinary frequency and urgency. The patient currently denies dysuria, fever, chills, gross hematuria, or difficulty emptying his bladder. 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
[2019-01-29] MEDS: MEMANTINE HCL 5 MG TABLET (UD) PO SCH (09:42)
[2019-01-29] MEDS: TAMSULOSIN HCL 0.4 MG CAP PO SCH (09:42)
[2019-01-29] MEDS: HEPARIN NA (PORCINE) 5,000 UNITS/ML 1ML VIAL SQ SCH (09:43)
[2019-01-29] MEDS: ESCITALOPRAM OXALATE 10 MG TABLET (FP) PO SCH (09:43)
[2019-01-29] MEDS: hydrALAZINE HCL 10 MG TABLET PO SCH (09:43)
[2019-01-29] MEDS: SOLIFENACIN SUCCINATE 5 MG TAB PO SCH (09:43)
[2019-01-29] MEDS: NEBIVOLOL 5 MG TABLET (FP) PO SCH (09:43)
[2019-01-29] MEDS: OLANZapine 5 MG TABLET PO SCH (09:44)
[2019-01-29 10:12] VITALS: BP 132/56; PULSE 52; TEMP 98
--- NOTE | 2019-01-29 11:13 | DS ---
Physical Examination Vital Signs: Vital Signs Temperature 98.0 F 01/29/19 10:00 Pulse Rate 52 L 01/29/19 10:00 Respiratory Rate 18 01/29/19 10:00 Blood Pressure 132/56 L 01/29/19 10:00 O2 Sat by Pulse Oximetry (%) 93 L 01/29/19 09:00 Findings/Remarks: Laboratory Results - last 24 hr 01/29/19 01/29/19 01/29/19 05:59 06:14 06:14 WBC 7.9 RBC 4.49 Hgb 11.4 L Hct 35.4 MCV 78.8 L MCH 25.3 L MCHC 32.1 RDW 14.6 Plt Count 151 MPV 10.1 Sodium 140 Potassium 4.8 Chloride 110 H Carbon Dioxide 26 Anion Gap 5 L BUN 62.4 H Creatinine 2.5 H Est GFR (CKD-EPI)AfAm 25.97 Est GFR (CKD-EPI)NonAf 22.41 POC Glucometer 81 Random Glucose 81 Calcium 8.4 L Total Bilirubin 0.3 AST 26 ALT 30 Alkaline Phosphatase 79 Total Protein 6.0 L Albumin 3.3 L Active Medications Generic Name Dose Route Start Last Admin Trade Name Gurmeetq PRN Reason Stop Dose Admin Acetaminophen 650 mg 01/25/19 13:48 Tylenol - PO Q4H PRN PAIN LEVEL 1-5 Docusate Sodium 100 mg 01/25/19 13:48 Colace - PO Q12H PRN CONSTIPATION Escitalopram Oxalate 10 mg 01/26/19 10:00 01/29/19 09:43 Lexapro - PO 10 mg DAILY [facility] Administration Heparin Sodium (Porcine) 5,000 unit 01/25/19 22:00 01/29/19 09:43 Heparin - SQ 5,000 unit BID [facility] Administration Hydralazine HCl 10 mg 01/25/19 22:00 01/29/19 09:43 Apresoline - PO 10 mg BID [facility] Administration Memantine 10 mg 01/25/19 22:00 01/29/19 09:42 Namenda - PO 10 mg BID [facility] Administration Nebivolol 10 mg 01/26/19 10:00 01/29/19 09:43 Bystolic - PO Not Given DAILY [facility] Olanzapine 5 mg 01/26/19 10:00 01/29/19 09:44 Zyprexa - PO 5 mg DAILY [facility] Administration Rosuvastatin Calcium 20 mg 01/25/19 22:00 01/28/19 22:19 Crestor - PO 20 mg HS [facility] Administration Solifenacin 5 mg 01/26/19 10:00 01/29/19 09:43 Vesicare - PO 5 mg DAILY [facility] Administration Tamsulosin HCl 0.4 mg 01/26/19 08:30 01/29/19 09:42 Flomax - PO 0.4 mg DAILY@0830 [facility] Administration Microbiology 01/25/19 12:43 Blood - Peripheral Venous Blood Culture - Preliminary NO GROWTH OBTAINED AFTER 72 HOURS, INCUBATION TO CONTINUE FOR 2 DAYS. 01/25/19 12:43 Blood - Peripheral Venous Blood Culture - Preliminary NO GROWTH OBTAINED AFTER 72 HOURS, INCUBATION TO CONTINUE FOR 2 DAYS. 01/25/19 12:43 Urine - Urine Clean Catch Urine Culture - Final NO GROWTH OBTAINED Constitutional: Yes: No Distress, Calm Eyes: Yes: Conjunctiva Clear HENT: Yes: Atraumatic Cardiovascular: Yes: Regular Rate and Rhythm Respiratory: Yes: Regular, CTA Bilaterally Gastrointestinal: Yes: Normal Bowel Sounds, Soft Musculoskeletal: Yes: Muscle Weakness Extremities: Yes: WNL Edema: No Neurological: Yes: Alert, Confusion Psychiatric: Yes: Alert Labs: CBC, BMP 01/29/19 06:14 01/29/19 06:14 Discharge Summary Problems reviewed: Yes Reason For Visit: COMPLICATED URINARY TRACT INFECTION Current Active Problems 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 Patient presented to ER for IV antibiotic therapy after UC was positive for Morganella. On examination patient states not feeling good but is unable to describe further. Unfortunately no family at the bedside to elaborate. Patient denies dysuria, hematuria, urinary frequency. Patient had repeat UC which showed negative results. Evaluated by urology while in patient and recommend to restart Myrbetriq daily. Condition: Stable - Instructions Diet, Activity, Other Instructions: to follow up with PMD in 1 week instructed to follow up with [facility] Dr Parra for kidney function continue to follow up with Urologist Dr Goodman restart Myrbetriq 50mg daily continue with med regimen as prescribed return to ER if AMS, severe pain, respiratory distress, chest pain Referrals: Kevin Goodman MD [Staff Physician] - Natalya Rae MD [Primary Care Provider] - Disposition: VNS/HOME HEALTH CARE - Home Medications Comprehensive Discharge Medication List: Ambulatory Orders Escitalopram Oxalate [Lexapro -] 10 mg PO DAILY 04/05/17 hydrALAZINE HCL [Apresoline -] 10 mg PO BID 04/05/17 Rosuvastatin [Crestor -] 20 mg PO HS tablet 04/15/17 Tamsulosin HCl [Flomax -] 0.4 mg PO DAILY@0830 cap.er.24h 04/15/17 Memantine HCl [Namenda -] 10 mg PO BID 06/18/17 Olanzapine [Zyprexa -] 5 mg PO HS 08/05/18 Acetaminophen [Tylenol .Regular Strength -] 650 mg PO Q4H PRN tablet 01/03/19 Aspirin 1 tab PO DAILY 01/25/19 Ibuprofen [Motrin -] 800 mg PO PRN 01/25/19 Nebivolol [Bystolic -] 10 mg PO DAILY 01/25/19 Olanzapine 5 mg PO DAILY 01/25/19 Olanzapine 5 mg PO DAILY 01/25/19 Docusate Sodium [Colace -] 100 mg PO Q12H PRN capsule 01/29/19 Solifenacin Succinate [Vesicare -] 5 mg PO DAILY #30 tab 01/29/19
--- NOTE | 2019-01-29 12:43 | PN ---
Progress Note, Physician History of Present Illness: Pt seen and examined at bedside. He is awake and appears comfortable. - Current Medication List Current Medications: Active Medications Acetaminophen (Tylenol -) 650 mg PO Q4H PRN PRN Reason: PAIN LEVEL 1-5 Docusate Sodium (Colace -) 100 mg PO Q12H PRN PRN Reason: CONSTIPATION Escitalopram Oxalate (Lexapro -) 10 mg PO DAILY [facility] Last Admin: 01/29/19 09:43 Dose: 10 mg Heparin Sodium (Porcine) (Heparin -) 5,000 unit SQ BID [facility] Last Admin: 01/29/19 09:43 Dose: 5,000 unit Hydralazine HCl (Apresoline -) 10 mg PO BID [facility] Last Admin: 01/29/19 09:43 Dose: 10 mg Memantine (Namenda -) 10 mg PO BID [facility] Last Admin: 01/29/19 09:42 Dose: 10 mg Nebivolol (Bystolic -) 10 mg PO DAILY [facility] Last Admin: 01/29/19 09:43 Dose: Not Given Olanzapine (Zyprexa -) 5 mg PO DAILY [facility] Last Admin: 01/29/19 09:44 Dose: 5 mg Rosuvastatin Calcium (Crestor -) 20 mg PO HS [facility] Last Admin: 01/28/19 22:19 Dose: 20 mg Solifenacin (Vesicare -) 5 mg PO DAILY [facility] Last Admin: 01/29/19 09:43 Dose: 5 mg Tamsulosin HCl (Flomax -) 0.4 mg PO DAILY@0830 [facility] Last Admin: 01/29/19 09:42 Dose: 0.4 mg - Objective Vital Signs: Vital Signs Temperature 98.0 F 01/29/19 10:00 Pulse Rate 52 L 01/29/19 10:00 Respiratory Rate 18 01/29/19 10:00 Blood Pressure 132/56 L 01/29/19 10:00 O2 Sat by Pulse Oximetry (%) 93 L 01/29/19 09:00 Constitutional: Yes: Calm Eyes: Yes: Conjunctiva Clear HENT: Yes: Atraumatic Neck: Yes: Supple Cardiovascular: Yes: S1, S2 Respiratory: Yes: CTA Bilaterally Gastrointestinal: Yes: Soft Genitourinary: Yes: WNL Musculoskeletal: Yes: WNL Edema: No Neurological: Yes: Oriented Labs: CBC, BMP 01/29/19 06:14 01/29/19 06:14 Assessment/Plan Current Medications Generic Name Dose Route Start Last Admin Trade Name Marla PRN Reason Stop Dose Admin Acetaminophen 650 mg 01/25/19 13:48 Tylenol - PO Q4H PRN PAIN LEVEL 1-5 Docusate Sodium 100 mg 01/25/19 13:48 Colace - PO Q12H PRN CONSTIPATION Escitalopram Oxalate 10 mg 01/26/19 10:00 01/29/19 09:43 Lexapro - PO 10 mg DAILY [facility] Administration Heparin Sodium (Porcine) 5,000 unit 01/25/19 22:00 01/29/19 09:43 Heparin - SQ 5,000 unit BID [facility] Administration Hydralazine HCl 10 mg 01/25/19 22:00 01/29/19 09:43 Apresoline - PO 10 mg BID [facility] Administration Memantine 10 mg 01/25/19 22:00 01/29/19 09:42 Namenda - PO 10 mg BID [facility] Administration Nebivolol 10 mg 01/26/19 10:00 01/29/19 09:43 Bystolic - PO Not Given DAILY [facility] Olanzapine 5 mg 01/26/19 10:00 01/29/19 09:44 Zyprexa - PO 5 mg DAILY [facility] Administration Rosuvastatin Calcium 20 mg 01/25/19 22:00 01/28/19 22:19 Crestor - PO 20 mg HS [facility] Administration Solifenacin 5 mg 01/26/19 10:00 01/29/19 09:43 Vesicare - PO 5 mg DAILY [facility] Administration Tamsulosin HCl 0.4 mg 01/26/19 08:30 01/29/19 09:42 Flomax - PO 0.4 mg DAILY@0830 [facility] Administration Impression 1. CKD 2. PKD 3. UTI 4. HTN 5. GARRISON 6. bilateral subdural hygromas 7. prostate cancer 8. dementia 9. hyperlipidemia 10. right hydro Plan - urology input appreciated - renal function stabilizing - can see as outpt - avoid nsaids
== END 2019-01-29 14:15 | disposition home health service (06) | DRG 690 ==
LOC: JER 11:27 → JERBED 13:30 → J7W 15:32
PROVIDERS: ADMIT Family Medicine; ATTEND Family Medicine
DX: N39.0 Urinary tract infection, site not specified (principal); N17.9 Acute kidney failure, unspecified; Q60.0 Renal agenesis, unilateral; N13.30 Unspecified hydronephrosis; I25.10 Atherosclerotic heart disease of native coronary artery without angina pectoris; Z95.1 Presence of aortocoronary bypass graft; F03.90 Unspecified dementia, unspecified severity, without behavioral disturbance, psychotic disturbance, mood disturbance, and anxiety; Z87.891 Personal history of nicotine dependence; Z98.2 Presence of cerebrospinal fluid drainage device; I12.9 Hypertensive chronic kidney disease with stage 1 through stage 4 chronic kidney disease, or unspecified chronic kidney disease; N18.9 Chronic kidney disease, unspecified; R26.81 Unsteadiness on feet; D18.1 Lymphangioma, any site; C61 Malignant neoplasm of prostate; N31.9 Neuromuscular dysfunction of bladder, unspecified
CPT/HCPCS: 36415; 71045-TC-FY; 76775-TC; 76856-TC; 80048; 80053; 81003; 82962; 83735; 84100; 84436; 84443; 85025; 85027; 87040; 87086; 93005; 93010; 97116-GP; 97161-GP; 99284-25; J1644

== ENCOUNTER 2021-10-07 10:44 | Inpatient (IN) | payer OTHER ==
[2021-10-07 11:02] VITALS: BMI 30.9
[2021-10-07 13:45] LABS: BASO % 0.5 % (0-2.0); EOS % 0.1 % (0-4.5); HEMATOCRIT 39.8 % (35.4-49); HEMOGLOBIN 12.7 GM/dL (11.7-16.9); LYMPH % 15.4 % (8-40); MCH 25.3 pg (25.7-33.7); MCHC 31.8 g/dl (32.0-35.9); MEAN CELL VOLUME 79.5 fl (80-96); MEAN PLT VOLUME 9.7 fl (7.5-11.1); PLATELET COUNT 182 10^3/uL (134-434); RBC 5.01 M/mm3 (4.00-5.60); RDW 16.4 % (11.9-15.9); WHITE BLOOD COUNT 10.6 K/mm3 (4.0-10.0)
[2021-10-07 13:56] LABS: EPI CELLS 17 /uL (0-25.1); HYALINE CASTS 3 /uL (0-3.1); PH,URINE 5.5 (5.0-8.0); URINE APPEARANCE CLEAR; URINE BACTERIA 6 /uL (0-1359); URINE BILIRUBIN NEGATIVE (NEGATIVE); URINE COLOR YELLOW; URINE GLUCOSE (UA) NEGATIVE (NEGATIVE); URINE KETONE 1+ (NEGATIVE); URINE LEUK ESTERASE NEGATIVE (NEGATIVE); URINE NITRITE NEGATIVE (NEGATIVE); URINE PROTEIN 4+ (NEGATIVE); URINE RBC 6 /uL (0-23.9); URINE UROBILINOGEN 0.2 mg/dL (0.2-1.0); URINE WBC 23 /uL (0-25.8)
[2021-10-07 14:03] LABS: CHLORIDE 106 mmol/L (98-107); SODIUM 140 mmol/L (136-145)
[2021-10-07 14:06] LABS: CALCIUM 8.9 mg/dL (8.5-10.1)
[2021-10-07 14:07] LABS: ALBUMIN 3.8 g/dl (3.4-5.0); ANION GAP 17 MMOL/L (8-16); BLOOD UREA NITROGEN 77.2 mg/dL (7-18); CO2 17 mmol/L (21-32); GLUCOSE,RANDOM 66 mg/dL (74-106); MAGNESIUM 2.2 mg/dL (1.8-2.4)
[2021-10-07 14:10] LABS: PHOSPHOROUS 5.6 mg/dL (2.5-4.9); SGOT/AST 96 U/L (15-37); SGPT/ALT 21 U/L (13-61)
[2021-10-07 14:11] LABS: BILIRUBIN,TOTAL 0.5 mg/dL (0.2-1)
[2021-10-07 14:13] LABS: ALK PHOS 97 U/L (45-117)
[2021-10-07] MEDS ORDERED: INSULIN REGULAR HUMAN 100 UNITS/ML *VIAL SQ ONE (14:45)
[2021-10-07] MEDS ORDERED: TAMSULOSIN HCL 0.4 MG CAP PO ONE (14:46)
[2021-10-07] MEDS ORDERED: DEXTROSE 50%-WATER - 25 GM/50 ML VIAL IVPUSH ONE ×2 (14:51→18:44)
[2021-10-07] MEDS ORDERED: CEFTRIAXONE 1 GM in DEXTROSE 5%-WATER - 100 ML IVPB ONE (15:07)
[2021-10-07] MEDS ORDERED: ASPIRIN 81 MG CHEWABLE TABLETS PO ONE (15:07)
[2021-10-07] MEDS ORDERED: ASPIRIN 81 MG CHEWABLE TABLETS ONE (15:46)
[2021-10-07] MEDS ORDERED: DEXTROSE 50%-WATER 25 GM/50 ML DISP.SYRIN ONE ×2 (15:46→20:54)
[2021-10-07] MEDS ORDERED: CEFTRIAXONE 1 GM/50 ML BAG ONE (15:47)
[2021-10-07] MEDS ORDERED: TAMSULOSIN HCL 0.4 MG CAP ONE (15:47)
[2021-10-07] MEDS ORDERED: SODIUM CHLORIDE 0.45% 1,000 ML IV SCH (16:00)
[2021-10-07] MEDS ORDERED: SODIUM CHLORIDE 1,000 ML IV STA (17:08)
[2021-10-07] MEDS: SODIUM CHLORIDE 0.45% 1,000 ML IV SCH (17:10)
[2021-10-07] MEDS ORDERED: SODIUM BICARBONATE 8.4% 50 MEQ/50 ML DISP.SYRIN IVPUSH ONE (17:10)
[2021-10-07] MEDS ORDERED: SODIUM ZIRCONIUM CYCLOSILICATE (LOKELMA) 5 GM PACKET PO SCH (17:15)
[2021-10-07 17:27] LABS: BLOOD UREA NITROGEN 77.3 mg/dL (7-18); CALCIUM 8.5 mg/dL (8.5-10.1)
[2021-10-07] MEDS ORDERED: SODIUM ZIRCONIUM CYCLOSILICATE (LOKELMA) 5 GM PACKET ONE (17:42)
[2021-10-07] MEDS ORDERED: SODIUM BICARBONATE 8.4% - 50 ML ONE (17:42)
[2021-10-07] MEDS ORDERED: INSULIN REGULAR HUMAN 100 UNITS/ML *VIAL IVPUSH ONE (18:43)
[2021-10-07] MEDS ORDERED: CALCIUM GLUCONATE 10% - 1,000 MG/10 ML VIAL IVPUSH ONE (18:45)
[2021-10-07 20:48] LABS: ALBUMIN 3.7 g/dl (3.4-5.0); BLOOD UREA NITROGEN 77.8 mg/dL (7-18); CALCIUM 8.6 mg/dL (8.5-10.1)
[2021-10-07 20:53] LABS: BILIRUBIN,TOTAL 0.4 mg/dL (0.2-1); TOT PROT 6.5 g/dl (6.4-8.2)
[2021-10-08] MEDS ORDERED: hydrALAZINE HCL 10 MG TABLET ONE ×3 (02:49→23:41)
[2021-10-08] MEDS ORDERED: OLANZapine 10 MG TABLET ONE ×2 (02:49→23:41)
[2021-10-08] MEDS ORDERED: HEPARIN NA (PORCINE) 5,000 UNITS/ML 1ML VIAL ONE ×3 (02:49→23:42)
[2021-10-08] MEDS: hydrALAZINE HCL 10 MG TABLET PO SCH ×2 (03:01→10:19)
[2021-10-08] MEDS: MEMANTINE HCL 10 MG TABLET (FP) PO SCH ×2 (03:01→11:05)
[2021-10-08] MEDS: OLANZapine 5 MG TABLET PO SCH (03:02)
[2021-10-08] MEDS: HEPARIN NA (PORCINE) 5,000 UNITS/ML 1ML VIAL SQ SCH ×2 (03:02→10:22)
[2021-10-08] MEDS ORDERED: TAMSULOSIN HCL 0.4 MG CAP ONE (08:13)
[2021-10-08] MEDS: TAMSULOSIN HCL 0.4 MG CAP PO SCH (08:18)
[2021-10-08 09:17] LABS: BASO % 0.5 % (0-2.0); EOS % 0.7 % (0-4.5); HEMATOCRIT 40.2 % (35.4-49); HEMOGLOBIN 12.9 GM/dL (11.7-16.9); LYMPH % 16.5 % (8-40); MCH 25.2 pg (25.7-33.7); MCHC 32.1 g/dl (32.0-35.9); MEAN CELL VOLUME 78.4 fl (80-96); MEAN PLT VOLUME 10.4 fl (7.5-11.1); MONO % 6.1 % (3.8-10.2); NEUT % 76.2 % (42.8-82.8); PLATELET COUNT 212 10^3/uL (134-434); RBC 5.12 M/mm3 (4.00-5.60); RDW 16.5 % (11.9-15.9); WHITE BLOOD COUNT 11.8 K/mm3 (4.0-10.0)
[2021-10-08 09:40] LABS: CHLORIDE 106 mmol/L (98-107); SODIUM 136 mmol/L (136-145)
[2021-10-08 09:42] LABS: CALCIUM 8.3 mg/dL (8.5-10.1)
[2021-10-08 09:43] LABS: ALBUMIN 3.4 g/dl (3.4-5.0); BLOOD UREA NITROGEN 73.8 mg/dL (7-18); CO2 20 mmol/L (21-32); GLUCOSE,RANDOM 79 mg/dL (74-106)
[2021-10-08 09:46] LABS: CREATININE 3.7 mg/dL (0.55-1.3); SGOT/AST 172 U/L (15-37)
[2021-10-08 09:48] LABS: BILIRUBIN,TOTAL 0.4 mg/dL (0.2-1); TOT PROT 7.2 g/dl (6.4-8.2)
[2021-10-08 09:49] LABS: ALK PHOS 89 U/L (45-117)
[2021-10-08 09:58] LABS: ANION GAP 10 MMOL/L (8-16); SGPT/ALT 39 U/L (13-61)
[2021-10-08] MEDS ORDERED: CEFTRIAXONE 1 GM in DEXTROSE 5%-WATER - 50 ML IVPB SCH (10:00)
[2021-10-08] MEDS ORDERED: PATIENT'S OWN MEDICATION (NON-FORMULARY) (Mirabegron [Myrbetriq] 50 MG Tab.Er.24h) PO SCH (10:00)
[2021-10-08] MEDS ORDERED: ASPIRIN 81 MG CHEWABLE TABLETS ONE (10:13)
[2021-10-08] MEDS ORDERED: ESCITALOPRAM OXALATE 10 MG TABLET ONE (10:14)
[2021-10-08] MEDS: ESCITALOPRAM OXALATE 10 MG TABLET PO SCH (10:18)
[2021-10-08] MEDS: ASPIRIN 81 MG CHEWABLE TABLETS PO SCH (10:18)
[2021-10-08] MEDS: NEBIVOLOL 5 MG TABLET (FP) PO SCH (11:05)
[2021-10-08] MEDS ORDERED: SODIUM CHLORIDE 1,000 ML IV SCH (12:00)
[2021-10-08] MEDS ORDERED: FINASTERIDE 5 MG TABLET (FP) PO ONE (14:49)
[2021-10-08] MEDS ORDERED: SODIUM ZIRCONIUM CYCLOSILICATE (LOKELMA) 5 GM PACKET ONE (15:00)
[2021-10-08] MEDS: SODIUM CHLORIDE 0.45% 1,000 ML IV SCH (17:21)
[2021-10-08] MEDS ORDERED: SODIUM ZIRCONIUM CYCLOSILICATE (LOKELMA) 5 GM PACKET PO ONE (18:43)
[2021-10-09] MEDS: OLANZapine 5 MG TABLET PO SCH ×2 (00:23→21:40)
[2021-10-09] MEDS: HEPARIN NA (PORCINE) 5,000 UNITS/ML 1ML VIAL SQ SCH ×3 (00:23→21:40)
[2021-10-09] MEDS: hydrALAZINE HCL 10 MG TABLET PO SCH ×2 (00:23→09:01)
[2021-10-09] MEDS: MEMANTINE HCL 10 MG TABLET (FP) PO SCH ×3 (00:23→21:40)
[2021-10-09] MEDS: TAMSULOSIN HCL 0.4 MG CAP PO SCH (08:55)
[2021-10-09] MEDS: ASPIRIN 81 MG CHEWABLE TABLETS PO SCH (09:01)
[2021-10-09] MEDS: NEBIVOLOL 5 MG TABLET (FP) PO SCH (09:01)
[2021-10-09] MEDS: ESCITALOPRAM OXALATE 10 MG TABLET PO SCH (09:01)
[2021-10-09 09:55] LABS: BASO % 0.5 % (0-2.0); EOS % 2.4 % (0-4.5); HEMOGLOBIN 11.9 GM/dL (11.7-16.9); LYMPH % 17.8 % (8-40); MCH 25.3 pg (25.7-33.7); MCHC 32.2 g/dl (32.0-35.9); MEAN CELL VOLUME 78.5 fl (80-96); MEAN PLT VOLUME 9.9 fl (7.5-11.1); MONO % 7.2 % (3.8-10.2); NEUT % 72.1 % (42.8-82.8); PLATELET COUNT 168 10^3/uL (134-434); RBC 4.71 M/mm3 (4.00-5.60); RDW 15.9 % (11.9-15.9); WHITE BLOOD COUNT 9.4 K/mm3 (4.0-10.0)
[2021-10-09 09:58] LABS: CALCIUM 8.5 mg/dL (8.5-10.1)
[2021-10-09 09:59] LABS: BLOOD UREA NITROGEN 72.8 mg/dL (7-18)
[2021-10-09 10:02] LABS: CREATININE 3.3 mg/dL (0.55-1.3)
[2021-10-09 10:03] LABS: BILIRUBIN,TOTAL 0.3 mg/dL (0.2-1); TOT PROT 5.7 g/dl (6.4-8.2)
[2021-10-09] MEDS ORDERED: hydrALAZINE HCL 25 MG TABLET (FP) PO SCH (10:06)
[2021-10-09] MEDS ORDERED: amLODIPine BESYLATE 5 MG TABLET (FP) PO SCH (10:15)
[2021-10-09] MEDS: ACETAMINOPHEN 325 MG TABLET (FP) PO PRN (11:17)
[2021-10-09] MEDS ORDERED: SODIUM CHLORIDE 1,000 ML IV SCH (12:00)
[2021-10-09] MEDS: PANTOPRAZOLE 40 MG TABLET PO SCH (16:23)
[2021-10-09] MEDS: MAG HYDROX/AL HYDROX/SIMETH 30 ML UNIT-DOSE CUP PO PRN (17:39)
[2021-10-09] MEDS: hydrALAZINE HCL 50 MG TABLET (FP) PO SCH (21:40)
[2021-10-09] MEDS: ROSUVASTATIN CA 20 MG TABLET PO SCH (21:40)
[2021-10-09] MEDS: POLYETHYLENE GLYCOL (HEALTHYLAX) 3350 17 GM PACKET PO SCH (21:41)
[2021-10-10] MEDS: MAG HYDROX/AL HYDROX/SIMETH 30 ML UNIT-DOSE CUP PO PRN ×2 (01:58→15:24)
[2021-10-10 07:43] LABS: BLOOD UREA NITROGEN 61.5 mg/dL (7-18); CALCIUM 8.5 mg/dL (8.5-10.1)
[2021-10-10 07:46] LABS: CREATININE 2.7 mg/dL (0.55-1.3)
[2021-10-10] MEDS: ESCITALOPRAM OXALATE 10 MG TABLET PO SCH (09:13)
[2021-10-10] MEDS: hydrALAZINE HCL 50 MG TABLET (FP) PO SCH ×2 (09:13→21:43)
[2021-10-10] MEDS: TAMSULOSIN HCL 0.4 MG CAP PO SCH (09:13)
[2021-10-10] MEDS: POLYETHYLENE GLYCOL (HEALTHYLAX) 3350 17 GM PACKET PO SCH ×2 (09:14→21:43)
[2021-10-10] MEDS: ASPIRIN 81 MG CHEWABLE TABLETS PO SCH (09:14)
[2021-10-10] MEDS: amLODIPine BESYLATE 10 MG TABLET (FP) PO SCH (09:14)
[2021-10-10] MEDS: NEBIVOLOL 5 MG TABLET (FP) PO SCH (09:14)
[2021-10-10] MEDS: HEPARIN NA (PORCINE) 5,000 UNITS/ML 1ML VIAL SQ SCH ×2 (09:14→21:43)
[2021-10-10] MEDS: PANTOPRAZOLE 40 MG TABLET PO SCH (09:14)
[2021-10-10] MEDS ORDERED: SODIUM CHLORIDE 0.45% 1,000 ML IV SCH (09:45)
[2021-10-10] MEDS: MEMANTINE HCL 10 MG TABLET (FP) PO SCH ×2 (09:52→21:43)
[2021-10-10] MEDS: ACETAMINOPHEN 325 MG TABLET (FP) PO PRN (12:25)
[2021-10-10] MEDS ORDERED: ONDANSETRON 4 MG/2 ML VIAL IVPUSH PRN (15:29)
[2021-10-10] MEDS: ROSUVASTATIN CA 20 MG TABLET PO SCH (21:43)
[2021-10-10] MEDS: OLANZapine 5 MG TABLET PO SCH (21:43)
[2021-10-11 09:02] LABS: CALCIUM 8.3 mg/dL (8.5-10.1)
[2021-10-11 09:03] LABS: ALBUMIN 2.8 g/dl (3.4-5.0); BLOOD UREA NITROGEN 61.5 mg/dL (7-18)
[2021-10-11 09:06] LABS: CREATININE 2.7 mg/dL (0.55-1.3)
[2021-10-11 09:07] LABS: BILIRUBIN,TOTAL 0.3 mg/dL (0.2-1)
[2021-10-11 09:08] LABS: TOT PROT 5.4 g/dl (6.4-8.2)
[2021-10-11] MEDS: ESCITALOPRAM OXALATE 10 MG TABLET PO SCH (10:51)
[2021-10-11] MEDS: NEBIVOLOL 5 MG TABLET (FP) PO SCH (10:51)
[2021-10-11] MEDS: amLODIPine BESYLATE 10 MG TABLET (FP) PO SCH (10:51)
[2021-10-11] MEDS: ASPIRIN 81 MG CHEWABLE TABLETS PO SCH (10:51)
[2021-10-11] MEDS: PANTOPRAZOLE 40 MG TABLET PO SCH (10:51)
[2021-10-11] MEDS: POLYETHYLENE GLYCOL (HEALTHYLAX) 3350 17 GM PACKET PO SCH ×2 (10:51→21:48)
[2021-10-11] MEDS: TAMSULOSIN HCL 0.4 MG CAP PO SCH (10:51)
[2021-10-11] MEDS: HEPARIN NA (PORCINE) 5,000 UNITS/ML 1ML VIAL SQ SCH ×2 (10:51→21:48)
[2021-10-11] MEDS: MEMANTINE HCL 10 MG TABLET (FP) PO SCH (10:52)
[2021-10-11] MEDS ORDERED: DEXTROSE 5%-0.45% SALINE 1,000 ML IV SCH (12:30)
[2021-10-11] MEDS ORDERED: hydrALAZINE HCL 50 MG TABLET (FP) PO SCH (14:00)
[2021-10-11] MEDS ORDERED: LACTATED RINGERS SOLUTION 1,000 ML IV SCH (16:00)
[2021-10-11] MEDS ORDERED: ETOMIDATE 20 MG/10 ML AMPUL IVPUSH ONE (16:02)
[2021-10-11] MEDS ORDERED: DEXAMETHASONE SOD PHOSPHATE 4 MG/1 ML VIAL ONE (16:48)
[2021-10-11] MEDS ORDERED: LIDOCAINE HCL 2% JELLY 10 ML CARTRIDGE ONE (17:00)
[2021-10-11] MEDS ORDERED: LIDOCAINE HCL 2% JELLY 10 ML CARTRIDGE TP ONE (17:05)
[2021-10-11] MEDS ORDERED: ONDANSETRON 4 MG/2 ML VIAL IVPUSH PRN (17:23)
[2021-10-11] MEDS ORDERED: MAG HYDROX/AL HYDROX/SIMETH 30 ML UNIT-DOSE CUP PO PRN (17:23)
[2021-10-11] MEDS: LACTATED RINGERS SOLUTION 1,000 ML IV SCH (18:00)
[2021-10-11] MEDS ORDERED: LIDOCAINE HCL 2% JELLY 10 ML CARTRIDGE UR ONE (21:36)
[2021-10-11] MEDS: hydrALAZINE HCL 50 MG TABLET (FP) PO SCH (21:48)
[2021-10-11] MEDS ORDERED: ROSUVASTATIN CA 20 MG TABLET PO SCH (22:00)
[2021-10-11] MEDS: ACETAMINOPHEN 325 MG TABLET (FP) PO PRN (22:07)
[2021-10-12] MEDS: hydrALAZINE HCL 50 MG TABLET (FP) PO SCH ×3 (06:12→22:13)
[2021-10-12] MEDS: LACTATED RINGERS SOLUTION 1,000 ML IV SCH (06:14)
[2021-10-12 09:10] LABS: BASO % 0.1 % (0-2.0); HEMATOCRIT 34.8 % (35.4-49); HEMOGLOBIN 11.2 GM/dL (11.7-16.9); LYMPH % 10.5 % (8-40); MCH 25.2 pg (25.7-33.7); MCHC 32.3 g/dl (32.0-35.9); MEAN PLT VOLUME 10.4 fl (7.5-11.1); MONO % 4.4 % (3.8-10.2); PLATELET COUNT 167 10^3/uL (134-434); RBC 4.46 M/mm3 (4.00-5.60); RDW 15.8 % (11.9-15.9); WHITE BLOOD COUNT 10.9 K/mm3 (4.0-10.0)
[2021-10-12 09:30] LABS: CALCIUM 8.4 mg/dL (8.5-10.1)
[2021-10-12 09:31] LABS: ALBUMIN 2.8 g/dl (3.4-5.0); BLOOD UREA NITROGEN 65.6 mg/dL (7-18)
[2021-10-12 09:34] LABS: CREATININE 3.2 mg/dL (0.55-1.3)
[2021-10-12 09:36] LABS: BILIRUBIN,TOTAL 0.2 mg/dL (0.2-1); TOT PROT 5.5 g/dl (6.4-8.2)
[2021-10-12] MEDS: ACETAMINOPHEN 325 MG TABLET (FP) PO PRN ×2 (09:42→22:11)
[2021-10-12] MEDS: PANTOPRAZOLE 40 MG TABLET PO SCH (09:44)
[2021-10-12] MEDS: amLODIPine BESYLATE 10 MG TABLET (FP) PO SCH (09:44)
[2021-10-12] MEDS: POLYETHYLENE GLYCOL (HEALTHYLAX) 3350 17 GM PACKET PO SCH ×2 (09:44→22:13)
[2021-10-12] MEDS: TAMSULOSIN HCL 0.4 MG CAP PO SCH (09:44)
[2021-10-12] MEDS: NEBIVOLOL 5 MG TABLET (FP) PO SCH (09:44)
[2021-10-12] MEDS: HEPARIN NA (PORCINE) 5,000 UNITS/ML 1ML VIAL SQ SCH ×2 (09:44→22:13)
[2021-10-12] MEDS ORDERED: SODIUM ZIRCONIUM CYCLOSILICATE (LOKELMA) 5 GM PACKET PO SCH (12:45)
[2021-10-12] MEDS: SODIUM CHLORIDE 0.45% 1,000 ML IV SCH (22:06)
[2021-10-13] MEDS: hydrALAZINE HCL 50 MG TABLET (FP) PO SCH ×3 (06:31→22:46)
[2021-10-13 08:35] LABS: BASO % 0.4 % (0-2.0); EOS % 1.9 % (0-4.5); HEMATOCRIT 36.2 % (35.4-49); HEMOGLOBIN 11.3 GM/dL (11.7-16.9); MCH 24.7 pg (25.7-33.7); MCHC 31.2 g/dl (32.0-35.9); MEAN CELL VOLUME 79.1 fl (80-96); MEAN PLT VOLUME 11.3 fl (7.5-11.1); MONO % 7.4 % (3.8-10.2); NEUT % 68.3 % (42.8-82.8); PLATELET COUNT 175 10^3/uL (134-434); RBC 4.58 M/mm3 (4.00-5.60); RDW 15.7 % (11.9-15.9); WHITE BLOOD COUNT 12.4 K/mm3 (4.0-10.0)
[2021-10-13 08:50] LABS: BLOOD UREA NITROGEN 78.1 mg/dL (7-18); CALCIUM 8.1 mg/dL (8.5-10.1)
[2021-10-13 08:51] LABS: ALBUMIN 2.9 g/dl (3.4-5.0)
[2021-10-13 08:54] LABS: CREATININE 3.6 mg/dL (0.55-1.3)
[2021-10-13 08:55] LABS: BILIRUBIN,TOTAL 0.3 mg/dL (0.2-1); TOT PROT 5.5 g/dl (6.4-8.2)
[2021-10-13] MEDS: ACETAMINOPHEN 325 MG TABLET (FP) PO PRN ×3 (10:36→23:44)
[2021-10-13] MEDS: TAMSULOSIN HCL 0.4 MG CAP PO SCH (10:36)
[2021-10-13] MEDS: HEPARIN NA (PORCINE) 5,000 UNITS/ML 1ML VIAL SQ SCH ×2 (10:38→22:46)
[2021-10-13] MEDS: NEBIVOLOL 5 MG TABLET (FP) PO SCH (10:38)
[2021-10-13] MEDS: amLODIPine BESYLATE 10 MG TABLET (FP) PO SCH (10:38)
[2021-10-13] MEDS: PANTOPRAZOLE 40 MG TABLET PO SCH (10:39)
[2021-10-13] MEDS: POLYETHYLENE GLYCOL (HEALTHYLAX) 3350 17 GM PACKET PO SCH ×2 (10:39→22:47)
[2021-10-13] MEDS: SODIUM CHLORIDE 0.45% 1,000 ML IV SCH (11:46)
[2021-10-13] MEDS ORDERED: BISACODYL 10 MG SUPP.RECT PR ONE (21:43)
[2021-10-14] MEDS: hydrALAZINE HCL 50 MG TABLET (FP) PO SCH ×3 (05:50→21:25)
[2021-10-14] MEDS: SODIUM CHLORIDE 0.45% 1,000 ML IV SCH ×2 (05:50→21:31)
[2021-10-14 08:36] LABS: HEMATOCRIT 35.7 % (35.4-49); HEMOGLOBIN 11.1 GM/dL (11.7-16.9); MCH 24.5 pg (25.7-33.7); MCHC 31.1 g/dl (32.0-35.9); MEAN CELL VOLUME 78.8 fl (80-96); MEAN PLT VOLUME 10.7 fl (7.5-11.1); PLATELET COUNT 183 10^3/uL (134-434); RBC 4.53 M/mm3 (4.00-5.60); RDW 15.9 % (11.9-15.9); WHITE BLOOD COUNT 13.3 K/mm3 (4.0-10.0)
[2021-10-14 08:48] LABS: ALBUMIN 2.7 g/dl (3.4-5.0); BLOOD UREA NITROGEN 81.7 mg/dL (7-18); CALCIUM 8.3 mg/dL (8.5-10.1)
[2021-10-14 08:51] LABS: CREATININE 3.6 mg/dL (0.55-1.3)
[2021-10-14 08:53] LABS: BILIRUBIN,TOTAL 0.2 mg/dL (0.2-1); TOT PROT 5.4 g/dl (6.4-8.2)
[2021-10-14] MEDS: TAMSULOSIN HCL 0.4 MG CAP PO SCH (09:31)
[2021-10-14] MEDS: PANTOPRAZOLE 40 MG TABLET PO SCH (09:31)
[2021-10-14] MEDS: HEPARIN NA (PORCINE) 5,000 UNITS/ML 1ML VIAL SQ SCH ×2 (09:31→21:26)
[2021-10-14] MEDS: amLODIPine BESYLATE 10 MG TABLET (FP) PO SCH (09:31)
[2021-10-14] MEDS: POLYETHYLENE GLYCOL (HEALTHYLAX) 3350 17 GM PACKET PO SCH ×2 (09:31→21:33)
[2021-10-14 09:51] LABS: ANISOCYTOSIS 1+; MACROCYTOSIS 0
[2021-10-14] MEDS: NEBIVOLOL 10 MG TABLET (FP) PO SCH (12:18)
[2021-10-14 14:18] LABS: EPI CELLS 12 /uL (0-25.1); HYALINE CASTS 1 /uL (0-3.1); PH,URINE 5.5 (5.0-8.0); URINE APPEARANCE CLEAR; URINE BACTERIA 20 /uL (0-1359); URINE BILIRUBIN NEGATIVE (NEGATIVE); URINE COLOR YELLOW; URINE GLUCOSE (UA) TRACE (NEGATIVE); URINE KETONE NEGATIVE (NEGATIVE); URINE LEUK ESTERASE 1+ (NEGATIVE); URINE NITRITE NEGATIVE (NEGATIVE); URINE PROTEIN 3+ (NEGATIVE); URINE RBC 77 /uL (0-23.9); URINE UROBILINOGEN 0.2 mg/dL (0.2-1.0); URINE WBC 45 /uL (0-25.8)
[2021-10-14] MEDS: ACETAMINOPHEN 325 MG TABLET (FP) PO PRN (21:26)
[2021-10-15] MEDS: hydrALAZINE HCL 50 MG TABLET (FP) PO SCH ×3 (05:42→21:14)
[2021-10-15] MEDS: PANTOPRAZOLE 40 MG TABLET PO SCH (09:20)
[2021-10-15] MEDS: amLODIPine BESYLATE 10 MG TABLET (FP) PO SCH (09:20)
[2021-10-15] MEDS: POLYETHYLENE GLYCOL (HEALTHYLAX) 3350 17 GM PACKET PO SCH ×2 (09:20→21:14)
[2021-10-15] MEDS: TAMSULOSIN HCL 0.4 MG CAP PO SCH (09:20)
[2021-10-15] MEDS: HEPARIN NA (PORCINE) 5,000 UNITS/ML 1ML VIAL SQ SCH ×2 (09:20→21:14)
[2021-10-15] MEDS: NEBIVOLOL 10 MG TABLET (FP) PO SCH (09:20)
[2021-10-15 11:37] LABS: CALCIUM 8.1 mg/dL (8.5-10.1)
[2021-10-15 11:38] LABS: ALBUMIN 2.6 g/dl (3.4-5.0); BLOOD UREA NITROGEN 74.2 mg/dL (7-18)
[2021-10-15 11:40] LABS: CREATININE 3.6 mg/dL (0.55-1.3)
[2021-10-15 11:42] LABS: BILIRUBIN,TOTAL 0.1 mg/dL (0.2-1); TOT PROT 5.3 g/dl (6.4-8.2)
[2021-10-15] MEDS: SODIUM CHLORIDE 0.45% 1,000 ML IV SCH (14:36)
[2021-10-15] MEDS: ACETAMINOPHEN 325 MG TABLET (FP) PO PRN (21:15)
[2021-10-16] MEDS: hydrALAZINE HCL 50 MG TABLET (FP) PO SCH ×3 (06:23→22:10)
[2021-10-16] MEDS: SODIUM CHLORIDE 0.45% 1,000 ML IV SCH ×2 (06:26→13:25)
[2021-10-16 08:35] LABS: ALBUMIN 2.7 g/dl (3.4-5.0); CALCIUM 8.4 mg/dL (8.5-10.1)
[2021-10-16 08:36] LABS: BLOOD UREA NITROGEN 71.8 mg/dL (7-18)
[2021-10-16 08:38] LABS: CREATININE 3.4 mg/dL (0.55-1.3)
[2021-10-16 08:40] LABS: BILIRUBIN,TOTAL 0.2 mg/dL (0.2-1); TOT PROT 5.6 g/dl (6.4-8.2)
[2021-10-16] MEDS: TAMSULOSIN HCL 0.4 MG CAP PO SCH (08:49)
[2021-10-16] MEDS: PANTOPRAZOLE 40 MG TABLET PO SCH (09:00)
[2021-10-16] MEDS: amLODIPine BESYLATE 10 MG TABLET (FP) PO SCH (09:00)
[2021-10-16] MEDS: HEPARIN NA (PORCINE) 5,000 UNITS/ML 1ML VIAL SQ SCH ×2 (09:00→22:10)
[2021-10-16] MEDS: POLYETHYLENE GLYCOL (HEALTHYLAX) 3350 17 GM PACKET PO SCH ×2 (09:01→22:10)
[2021-10-16] MEDS: NEBIVOLOL 10 MG TABLET (FP) PO SCH (09:01)
[2021-10-17] MEDS: ACETAMINOPHEN 325 MG TABLET (FP) PO PRN ×3 (00:55→16:01)
[2021-10-17] MEDS: SODIUM CHLORIDE 0.45% 1,000 ML IV SCH ×3 (05:12→21:52)
[2021-10-17] MEDS: hydrALAZINE HCL 50 MG TABLET (FP) PO SCH ×3 (05:12→23:00)
[2021-10-17] MEDS: TAMSULOSIN HCL 0.4 MG CAP PO SCH (09:21)
[2021-10-17] MEDS: amLODIPine BESYLATE 10 MG TABLET (FP) PO SCH (09:50)
[2021-10-17] MEDS: NEBIVOLOL 10 MG TABLET (FP) PO SCH (09:50)
[2021-10-17] MEDS: POLYETHYLENE GLYCOL (HEALTHYLAX) 3350 17 GM PACKET PO SCH ×2 (09:50→23:00)
[2021-10-17] MEDS: PANTOPRAZOLE 40 MG TABLET PO SCH (09:51)
[2021-10-17] MEDS: HEPARIN NA (PORCINE) 5,000 UNITS/ML 1ML VIAL SQ SCH (09:51)
[2021-10-17 12:54] LABS: HEMATOCRIT 33.8 % (35.4-49); HEMOGLOBIN 10.8 GM/dL (11.7-16.9); MEAN CELL VOLUME 78.1 fl (80-96); MEAN PLT VOLUME 10.5 fl (7.5-11.1); PLATELET COUNT 224 10^3/uL (134-434); RBC 4.33 M/mm3 (4.00-5.60); RDW 16.2 % (11.9-15.9); WHITE BLOOD COUNT 10.4 K/mm3 (4.0-10.0)
[2021-10-17 13:02] LABS: ALBUMIN 2.8 g/dl (3.4-5.0); CALCIUM 8.3 mg/dL (8.5-10.1)
[2021-10-17 13:03] LABS: BLOOD UREA NITROGEN 57.3 mg/dL (7-18)
[2021-10-17 13:08] LABS: BILIRUBIN,TOTAL 0.2 mg/dL (0.2-1); TOT PROT 5.8 g/dl (6.4-8.2)
[2021-10-17 13:41] LABS: ANISOCYTOSIS 1+; MACROCYTOSIS 0
[2021-10-17 23:47] VITALS: RESP 20
[2021-10-18] MEDS: HEPARIN NA (PORCINE) 5,000 UNITS/ML 1ML VIAL SQ SCH ×2 (00:33→09:40)
[2021-10-18] MEDS: hydrALAZINE HCL 50 MG TABLET (FP) PO SCH (05:35)
[2021-10-18 06:21] VITALS: BP 134/54; PULSE 63; TEMP 98.6
[2021-10-18] MEDS: PANTOPRAZOLE 40 MG TABLET PO SCH (09:38)
[2021-10-18] MEDS: POLYETHYLENE GLYCOL (HEALTHYLAX) 3350 17 GM PACKET PO SCH (09:38)
[2021-10-18] MEDS: NEBIVOLOL 10 MG TABLET (FP) PO SCH (09:38)
[2021-10-18] MEDS: TAMSULOSIN HCL 0.4 MG CAP PO SCH (09:38)
[2021-10-18] MEDS: amLODIPine BESYLATE 10 MG TABLET (FP) PO SCH (09:38)
== END 2021-10-18 13:58 | disposition home health service (06) | DRG 682 ==
LOC: JER 10:44 → JERBED 15:22 → J4S 10-09 00:29
PROVIDERS: ADMIT Family Medicine; ATTEND Family Medicine
PROC: BT1DZZZ Fluoroscopy of Right Kidney, Ureter and Bladder (ICD-10-PCS; 2021-10-11)
PROC: 0T767DZ Dilation of Right Ureter with Intraluminal Device, Via Natural or Artificial Opening (ICD-10-PCS; principal; 2021-10-11 16:30)
DX: N17.9 Acute kidney failure, unspecified (principal); G93.41 Metabolic encephalopathy; N39.0 Urinary tract infection, site not specified; G91.2 (Idiopathic) normal pressure hydrocephalus; I24.8 Other forms of acute ischemic heart disease; Q61.3 Polycystic kidney, unspecified; Q60.0 Renal agenesis, unilateral; N18.4 Chronic kidney disease, stage 4 (severe); N13.0 Hydronephrosis with ureteropelvic junction obstruction; I12.9 Hypertensive chronic kidney disease with stage 1 through stage 4 chronic kidney disease, or unspecified chronic kidney disease; C61 Malignant neoplasm of prostate; E11.22 Type 2 diabetes mellitus with diabetic chronic kidney disease; F03.90 Unspecified dementia, unspecified severity, without behavioral disturbance, psychotic disturbance, mood disturbance, and anxiety; E78.5 Hyperlipidemia, unspecified; I25.10 Atherosclerotic heart disease of native coronary artery without angina pectoris; Z95.1 Presence of aortocoronary bypass graft; E86.0 Dehydration; R53.1 Weakness; Z79.82 Long term (current) use of aspirin; H91.90 Unspecified hearing loss, unspecified ear; R10.9 Unspecified abdominal pain; R45.1 Restlessness and agitation; E87.5 Hyperkalemia
CPT/HCPCS: 36415; 70450-TC; 71045-TC-FY; 74018-TC-FY; 74176-TC; 76775-TC; 76856-TC; 80048; 80053; 81003; 82962; 83036; 83735; 84100; 84132; 84443; 84484; 85025; 87040; 87086; 93005; 93010; 94760; 97116-GP; 97161-GP; 99285-25; C9803-CS; J1644; U0003; U0005

== ENCOUNTER 2022-06-08 16:28 | Inpatient (IN) | payer OTHER ==
[2022-06-08] MEDS ORDERED: PIPERACILLIN/TAZOB 4.5 GM 4.5 GM in DEXTROSE 5%-WATER 100 ML IVPB ONE (17:31)
[2022-06-08] MEDS ORDERED: VANCOMYCIN 1 GM in D5W (PRE-DOCKED) 1,000 MG/250 ML IVPB ONE (17:31)
[2022-06-08] MEDS ORDERED: PIPERACILLIN/TAZOB 4.5 GM 4.5 GM/100 ML BAG IVPB ONE (17:34)
[2022-06-08] MEDS ORDERED: VANCOMYCIN/WATER FOR INJ (PEG) 1,000 MG/200 ML BAG IVPB ONE (18:43)
[2022-06-08 18:54] LABS: BASO % 0.6 % (0-2.0); HEMATOCRIT 37.1 % (35.4-49); HEMOGLOBIN 11.3 GM/dL (11.7-16.9); LYMPH % 14.2 % (8-40); MCH 23.1 pg (25.7-33.7); MCHC 30.5 g/dl (32.0-35.9); MEAN CELL VOLUME 75.6 fl (80-96); MEAN PLT VOLUME 9.9 fl (7.5-11.1); MONO % 5.8 % (3.8-10.2); NEUT % 77.4 % (42.8-82.8); PLATELET COUNT 246 10^3/uL (134-434); RBC 4.91 M/mm3 (4.00-5.60); VENOUS BASE EXCESS -4.4 mmol/L (-2-2); VENOUS O2 SATURATION 37.6 % (70-80); VENOUS PCO2 48.2 mmHg (38-52); VENOUS PH 7.285 (7.310-7.410); WHITE BLOOD COUNT 13.2 K/mm3 (4.0-10.0)
[2022-06-08 18:57] LABS: EPI CELLS 15 /uL (0-25.1); HYALINE CASTS 1 /uL (0-3.1); PH,URINE 5.5 (5.0-8.0); URINE APPEARANCE CLOUDY; URINE BACTERIA 66 /uL (0-1359); URINE BILIRUBIN NEGATIVE (NEGATIVE); URINE COLOR YELLOW; URINE GLUCOSE (UA) TRACE (NEGATIVE); URINE KETONE NEGATIVE (NEGATIVE); URINE LEUK ESTERASE TRACE (NEGATIVE); URINE NITRITE NEGATIVE (NEGATIVE); URINE PROTEIN 3+ (NEGATIVE); URINE RBC 5323 /uL (0-23.9); URINE UROBILINOGEN 0.2 mg/dL (0.2-1.0); URINE WBC 46 /uL (0-25.8)
[2022-06-08 19:01] LABS: INR 0.99 (0.83-1.09); PROTHROMBIN TIME (PATIENT) 11.5 SEC (9.7-13.0)
[2022-06-08 19:04] LABS: ACTIVATED PTT 29.7 SECONDS (25.2-36.5)
[2022-06-08 19:22] LABS: ALBUMIN 3.7 g/dl (3.4-5.0); BLOOD UREA NITROGEN 94.9 mg/dL (7-18); MAGNESIUM 2.4 mg/dL (1.8-2.4)
[2022-06-08 19:25] LABS: CREATININE 3.5 mg/dL (0.55-1.3); PHOSPHOROUS 5.6 mg/dL (2.5-4.9)
[2022-06-08 19:27] LABS: BILIRUBIN,TOTAL 0.3 mg/dL (0.2-1); TOT PROT 6.9 g/dl (6.4-8.2)
[2022-06-09] MEDS ORDERED: ACETAMINOPHEN 325 MG TABLET (FP) PO PRN (10:30)
[2022-06-09 10:31] LABS: BASO % 0.6 % (0-2.0); EOS % 1.7 % (0-4.5); HEMATOCRIT 36.4 % (35.4-49); HEMOGLOBIN 11.3 GM/dL (11.7-16.9); LYMPH % 11.2 % (8-40); MCH 23.9 pg (25.7-33.7); MEAN CELL VOLUME 76.9 fl (80-96); MEAN PLT VOLUME 10.1 fl (7.5-11.1); MONO % 5.3 % (3.8-10.2); NEUT % 81.2 % (42.8-82.8); PLATELET COUNT 246 10^3/uL (134-434); RBC 4.73 M/mm3 (4.00-5.60); RDW 14.8 % (11.9-15.9); WHITE BLOOD COUNT 13.4 K/mm3 (4.0-10.0)
[2022-06-09] MEDS: TAMSULOSIN HCL 0.4 MG CAP PO SCH (11:44)
[2022-06-09] MEDS: CEFTRIAXONE 1 GM in DEXTROSE 5%-WATER - 50 ML IVPB SCH (11:44)
[2022-06-09 12:51] LABS: ALBUMIN 3.6 g/dl (3.4-5.0); BILIRUBIN,TOTAL 0.5 mg/dL (0.2-1); BLOOD UREA NITROGEN 87.6 mg/dL (7-18); CALCIUM 8.9 mg/dL (8.5-10.1); CREATININE 3.5 mg/dL (0.55-1.3); TOT PROT 6.9 g/dl (6.4-8.2)
[2022-06-09] MEDS: hydrALAZINE HCL 50 MG TABLET (FP) PO SCH ×2 (15:29→23:23)
[2022-06-09] MEDS: POLYETHYLENE GLYCOL (HEALTHYLAX) 3350 17 GM PACKET PO SCH (23:23)
[2022-06-09] MEDS: ROSUVASTATIN CA 10 MG TABLET PO SCH (23:23)
[2022-06-10] MEDS: hydrALAZINE HCL 50 MG TABLET (FP) PO SCH ×3 (06:04→22:12)
[2022-06-10 08:26] LABS: BASO % 0.6 % (0-2.0); EOS % 2.5 % (0-4.5); HEMATOCRIT 36.5 % (35.4-49); HEMOGLOBIN 11.5 GM/dL (11.7-16.9); LYMPH % 20.2 % (8-40); MCH 23.8 pg (25.7-33.7); MCHC 31.6 g/dl (32.0-35.9); MEAN CELL VOLUME 75.4 fl (80-96); MEAN PLT VOLUME 10.2 fl (7.5-11.1); MONO % 6.3 % (3.8-10.2); NEUT % 70.4 % (42.8-82.8); PLATELET COUNT 249 10^3/uL (134-434); RBC 4.84 M/mm3 (4.00-5.60); RDW 15.4 % (11.9-15.9)
[2022-06-10] MEDS: CEFTRIAXONE 1 GM in DEXTROSE 5%-WATER - 50 ML IVPB SCH (09:20)
[2022-06-10] MEDS: ASPIRIN 81 MG CHEWABLE TABLETS PO SCH (09:20)
[2022-06-10] MEDS: ESCITALOPRAM OXALATE 10 MG TABLET PO SCH (09:20)
[2022-06-10] MEDS: PANTOPRAZOLE 40 MG TABLET PO SCH (09:20)
[2022-06-10] MEDS: NEBIVOLOL 5 MG TABLET (FP) PO SCH (09:20)
[2022-06-10] MEDS: TAMSULOSIN HCL 0.4 MG CAP PO SCH (09:20)
[2022-06-10] MEDS: POLYETHYLENE GLYCOL (HEALTHYLAX) 3350 17 GM PACKET PO SCH ×2 (09:21→22:12)
[2022-06-10] MEDS: amLODIPine BESYLATE 10 MG TABLET (FP) PO SCH (09:21)
[2022-06-10 19:56] VITALS: BMI 30.1
[2022-06-10] MEDS: ROSUVASTATIN CA 10 MG TABLET PO SCH (22:12)
[2022-06-10] MEDS: OLANZapine 2.5 MG TABLET PO SCH (22:12)
[2022-06-11] MEDS: hydrALAZINE HCL 50 MG TABLET (FP) PO SCH ×3 (06:24→21:10)
[2022-06-11 07:39] LABS: MCH 24.3 pg (25.7-33.7); MCHC 32.3 g/dl (32.0-35.9); MEAN CELL VOLUME 75.3 fl (80-96); MEAN PLT VOLUME 9.9 fl (7.5-11.1); PLATELET COUNT 240 10^3/uL (134-434); RBC 4.51 M/mm3 (4.00-5.60); RDW 15.3 % (11.9-15.9); WHITE BLOOD COUNT 11.4 K/mm3 (4.0-10.0)
[2022-06-11 07:59] LABS: CALCIUM 8.7 mg/dL (8.5-10.1)
[2022-06-11 08:00] LABS: ALBUMIN 3.4 g/dl (3.4-5.0); BLOOD UREA NITROGEN 78.7 mg/dL (7-18); MAGNESIUM 2.2 mg/dL (1.8-2.4)
[2022-06-11 08:03] LABS: CREATININE 4.1 mg/dL (0.55-1.3)
[2022-06-11 08:04] LABS: BILIRUBIN,TOTAL 0.3 mg/dL (0.2-1); TOT PROT 6.6 g/dl (6.4-8.2)
[2022-06-11] MEDS: TAMSULOSIN HCL 0.4 MG CAP PO SCH (08:39)
[2022-06-11] MEDS: ASPIRIN 81 MG CHEWABLE TABLETS PO SCH (09:17)
[2022-06-11] MEDS: NEBIVOLOL 5 MG TABLET (FP) PO SCH (09:17)
[2022-06-11] MEDS: PANTOPRAZOLE 40 MG TABLET PO SCH (09:17)
[2022-06-11] MEDS: amLODIPine BESYLATE 10 MG TABLET (FP) PO SCH (09:17)
[2022-06-11] MEDS: ESCITALOPRAM OXALATE 10 MG TABLET PO SCH (09:17)
[2022-06-11] MEDS: CEFTRIAXONE 1 GM in DEXTROSE 5%-WATER - 50 ML IVPB SCH (09:17)
[2022-06-11] MEDS: POLYETHYLENE GLYCOL (HEALTHYLAX) 3350 17 GM PACKET PO SCH ×2 (09:18→23:07)
[2022-06-11] MEDS: CEFUROXIME AXETIL 250 MG TABLET PO SCH ×2 (11:46→21:10)
[2022-06-11] MEDS: OLANZapine 2.5 MG TABLET PO SCH (21:10)
[2022-06-11] MEDS: ROSUVASTATIN CA 10 MG TABLET PO SCH (21:10)
[2022-06-12] MEDS: hydrALAZINE HCL 50 MG TABLET (FP) PO SCH ×3 (06:01→21:59)
[2022-06-12 07:53] LABS: BLOOD UREA NITROGEN 86.8 mg/dL (7-18); CALCIUM 8.6 mg/dL (8.5-10.1)
[2022-06-12] MEDS ORDERED: SODIUM CHLORIDE 0.45% 1,000 ML IV SCH ×2 (08:45→14:24)
[2022-06-12] MEDS: TAMSULOSIN HCL 0.4 MG CAP PO SCH (09:22)
[2022-06-12] MEDS: NEBIVOLOL 5 MG TABLET (FP) PO SCH (09:22)
[2022-06-12] MEDS: CEFUROXIME AXETIL 250 MG TABLET PO SCH ×2 (09:22→21:59)
[2022-06-12] MEDS: amLODIPine BESYLATE 10 MG TABLET (FP) PO SCH (09:22)
[2022-06-12] MEDS: ASPIRIN 81 MG CHEWABLE TABLETS PO SCH (09:22)
[2022-06-12] MEDS: ESCITALOPRAM OXALATE 10 MG TABLET PO SCH (09:22)
[2022-06-12] MEDS: PANTOPRAZOLE 40 MG TABLET PO SCH (09:22)
[2022-06-12] MEDS: POLYETHYLENE GLYCOL (HEALTHYLAX) 3350 17 GM PACKET PO SCH ×2 (09:23→21:59)
[2022-06-12] MEDS ORDERED: SODIUM CHLORIDE 500 ML IV STA (14:24)
[2022-06-12] MEDS: SODIUM ZIRCONIUM CYCLOSILICATE (LOKELMA) 5 GM PACKET PO SCH ×3 (15:21→22:11)
[2022-06-12] MEDS: OLANZapine 2.5 MG TABLET PO SCH (21:59)
[2022-06-12] MEDS: ROSUVASTATIN CA 10 MG TABLET PO SCH (21:59)
[2022-06-13] MEDS: hydrALAZINE HCL 50 MG TABLET (FP) PO SCH ×3 (05:48→21:56)
[2022-06-13] MEDS: TAMSULOSIN HCL 0.4 MG CAP PO SCH (08:41)
[2022-06-13] MEDS: amLODIPine BESYLATE 10 MG TABLET (FP) PO SCH (09:17)
[2022-06-13] MEDS: CEFUROXIME AXETIL 250 MG TABLET PO SCH ×2 (09:17→21:56)
[2022-06-13] MEDS: ASPIRIN 81 MG CHEWABLE TABLETS PO SCH (09:17)
[2022-06-13] MEDS: ESCITALOPRAM OXALATE 10 MG TABLET PO SCH (09:17)
[2022-06-13] MEDS: PANTOPRAZOLE 40 MG TABLET PO SCH (09:17)
[2022-06-13] MEDS: NEBIVOLOL 5 MG TABLET (FP) PO SCH (09:17)
[2022-06-13] MEDS: POLYETHYLENE GLYCOL (HEALTHYLAX) 3350 17 GM PACKET PO SCH ×2 (09:18→21:56)
[2022-06-13] MEDS: SODIUM ZIRCONIUM CYCLOSILICATE (LOKELMA) 5 GM PACKET PO SCH (09:18)
[2022-06-13 12:12] LABS: BASO % 0.9 % (0-2.0); EOS % 3.5 % (0-4.5); HEMATOCRIT 31.4 % (35.4-49); HEMOGLOBIN 10.1 GM/dL (11.7-16.9); LYMPH % 17.3 % (8-40); MCH 24.3 pg (25.7-33.7); MCHC 32.2 g/dl (32.0-35.9); MEAN CELL VOLUME 75.3 fl (80-96); MEAN PLT VOLUME 10.1 fl (7.5-11.1); MONO % 6.1 % (3.8-10.2); NEUT % 72.2 % (42.8-82.8); PLATELET COUNT 205 10^3/uL (134-434); RBC 4.17 M/mm3 (4.00-5.60); RDW 14.9 % (11.9-15.9); WHITE BLOOD COUNT 9.1 K/mm3 (4.0-10.0)
[2022-06-13 12:32] LABS: BLOOD UREA NITROGEN 77.8 mg/dL (7-18); CALCIUM 8.1 mg/dL (8.5-10.1)
[2022-06-13 12:35] LABS: CREATININE 4.6 mg/dL (0.55-1.3)
[2022-06-13 12:37] LABS: BILIRUBIN,TOTAL 0.7 mg/dL (0.2-1); TOT PROT 5.9 g/dl (6.4-8.2)
[2022-06-13] MEDS ORDERED: SODIUM CHLORIDE 0.45% 1,000 ML IV SCH (13:45)
[2022-06-13] MEDS ORDERED: ONDANSETRON 4 MG/2 ML VIAL IVPUSH PRN ×2 (16:13→17:22)
[2022-06-13] MEDS ORDERED: PROMETHAZINE HCL 25 MG/1 ML VIAL IVPB PRN ×2 (16:13→17:22)
[2022-06-13] MEDS ORDERED: SODIUM CHLORIDE 1,000 ML IV SCH (16:15)
[2022-06-13] MEDS ORDERED: ceFAZolin SODIUM 1 GM VIAL IVPB ONE (16:25)
[2022-06-13] MEDS ORDERED: PROPOFOL 20 ML ONE (16:31)
[2022-06-13] MEDS ORDERED: SODIUM CHLORIDE 500 ML IV STA (17:22)
[2022-06-13] MEDS: SODIUM CHLORIDE 1,000 ML IV SCH (17:59)
[2022-06-13] MEDS: ACETAMINOPHEN 325 MG TABLET (FP) PO PRN (21:54)
[2022-06-13] MEDS: OLANZapine 2.5 MG TABLET PO SCH (21:56)
[2022-06-13] MEDS: ROSUVASTATIN CA 10 MG TABLET PO SCH (21:56)
[2022-06-14] MEDS: hydrALAZINE HCL 50 MG TABLET (FP) PO SCH ×3 (06:15→21:45)
[2022-06-14 07:04] LABS: BASO % 0.8 % (0-2.0); EOS % 3.3 % (0-4.5); HEMATOCRIT 34.9 % (35.4-49); LYMPH % 20.5 % (8-40); MCH 23.9 pg (25.7-33.7); MCHC 31.4 g/dl (32.0-35.9); MEAN CELL VOLUME 75.9 fl (80-96); MEAN PLT VOLUME 10.4 fl (7.5-11.1); MONO % 5.9 % (3.8-10.2); NEUT % 69.5 % (42.8-82.8); PLATELET COUNT 209 10^3/uL (134-434); RDW 15.6 % (11.9-15.9); WHITE BLOOD COUNT 9.9 K/mm3 (4.0-10.0)
[2022-06-14 07:11] LABS: CALCIUM 8.4 mg/dL (8.5-10.1)
[2022-06-14 07:12] LABS: ALBUMIN 3.2 g/dl (3.4-5.0); BLOOD UREA NITROGEN 81.5 mg/dL (7-18)
[2022-06-14 07:15] LABS: CREATININE 4.9 mg/dL (0.55-1.3)
[2022-06-14 07:17] LABS: BILIRUBIN,TOTAL 0.3 mg/dL (0.2-1); TOT PROT 6.2 g/dl (6.4-8.2)
[2022-06-14] MEDS ORDERED: TAMSULOSIN HCL 0.4 MG CAP PO SCH (08:30)
[2022-06-14] MEDS ORDERED: ASPIRIN 81 MG CHEWABLE TABLETS PO SCH (10:00)
[2022-06-14] MEDS: PANTOPRAZOLE 40 MG TABLET PO SCH (10:00)
[2022-06-14] MEDS: ESCITALOPRAM OXALATE 10 MG TABLET PO SCH (10:00)
[2022-06-14] MEDS: NEBIVOLOL 5 MG TABLET (FP) PO SCH (10:00)
[2022-06-14] MEDS: CEFUROXIME AXETIL 250 MG TABLET PO SCH ×2 (10:00→21:45)
[2022-06-14] MEDS: amLODIPine BESYLATE 10 MG TABLET (FP) PO SCH (10:00)
[2022-06-14] MEDS: QUEtiapine FUMARATE 25 MG TABLET PO SCH ×2 (10:01→21:45)
[2022-06-14] MEDS: POLYETHYLENE GLYCOL (HEALTHYLAX) 3350 17 GM PACKET PO SCH ×2 (11:45→21:46)
[2022-06-14] MEDS: SODIUM ZIRCONIUM CYCLOSILICATE (LOKELMA) 5 GM PACKET PO SCH (13:07)
[2022-06-14] MEDS: ACETAMINOPHEN 325 MG TABLET (FP) PO PRN ×2 (15:21→21:46)
[2022-06-14] MEDS: SODIUM CHLORIDE 1,000 ML IV SCH (17:41)
[2022-06-14] MEDS: ROSUVASTATIN CA 10 MG TABLET PO SCH (21:45)
[2022-06-14] MEDS: OLANZapine 2.5 MG TABLET PO SCH (21:45)
[2022-06-15] MEDS: hydrALAZINE HCL 50 MG TABLET (FP) PO SCH ×3 (06:42→21:26)
[2022-06-15 08:15] LABS: CALCIUM 8.4 mg/dL (8.5-10.1)
[2022-06-15 08:16] LABS: ALBUMIN 3.3 g/dl (3.4-5.0); BLOOD UREA NITROGEN 79.1 mg/dL (7-18)
[2022-06-15 08:20] LABS: TOT PROT 6.4 g/dl (6.4-8.2)
[2022-06-15 08:21] LABS: BILIRUBIN,TOTAL 0.2 mg/dL (0.2-1)
[2022-06-15] MEDS: TAMSULOSIN HCL 0.4 MG CAP PO SCH ×2 (10:10→10:27)
[2022-06-15] MEDS: ESCITALOPRAM OXALATE 10 MG TABLET PO SCH ×2 (10:11→10:29)
[2022-06-15] MEDS: NEBIVOLOL 5 MG TABLET (FP) PO SCH ×2 (10:11→10:28)
[2022-06-15] MEDS: amLODIPine BESYLATE 10 MG TABLET (FP) PO SCH ×2 (10:11→10:29)
[2022-06-15] MEDS: PANTOPRAZOLE 40 MG TABLET PO SCH ×2 (10:11→10:29)
[2022-06-15] MEDS: QUEtiapine FUMARATE 25 MG TABLET PO SCH ×3 (10:12→21:27)
[2022-06-15] MEDS: CEFUROXIME AXETIL 250 MG TABLET PO SCH ×3 (10:12→21:26)
[2022-06-15] MEDS: SODIUM ZIRCONIUM CYCLOSILICATE (LOKELMA) 5 GM PACKET PO SCH ×2 (10:12→10:29)
[2022-06-15] MEDS: POLYETHYLENE GLYCOL (HEALTHYLAX) 3350 17 GM PACKET PO SCH ×3 (10:13→21:26)
[2022-06-15] MEDS ORDERED: amLODIPine BESYLATE 10 MG TABLET (FP) PO ONE (11:45)
[2022-06-15] MEDS ORDERED: ROCURONIUM BROMIDE 50 MG/5 ML SYRINGE ONE (16:02)
[2022-06-15] MEDS ORDERED: PROPOFOL 20 ML ONE ×2 (16:02→17:15)
[2022-06-15] MEDS ORDERED: SUGAMMADEX SODIUM 200 MG/2 ML VIAL ONE (16:03)
[2022-06-15] MEDS ORDERED: LIDOCAINE HCL 2% JELLY 11 ML TP ONE (17:07)
[2022-06-15] MEDS ORDERED: ceFAZolin SODIUM 1 GM VIAL IVPB ONE (17:16)
[2022-06-15] MEDS ORDERED: ceFAZolin SODIUM 1 GM VIAL ONE (17:18)
[2022-06-15] MEDS ORDERED: ONDANSETRON 4 MG/2 ML VIAL IVPUSH PRN (17:38)
[2022-06-15] MEDS ORDERED: LACTATED RINGERS SOLUTION 1,000 ML IV SCH (17:45)
[2022-06-15] MEDS ORDERED: hydrALAZINE HCL 20 MG/ML VIAL IVPUSH ONE ×3 (18:00→18:12)
[2022-06-15] MEDS ORDERED: ACETAMINOPHEN 325 MG TABLET (FP) PO PRN (20:18)
[2022-06-15] MEDS ORDERED: SODIUM CHLORIDE 1,000 ML IV SCH (20:18)
[2022-06-15] MEDS: ROSUVASTATIN CA 10 MG TABLET PO SCH (21:26)
[2022-06-15] MEDS ORDERED: OLANZapine 2.5 MG TABLET PO SCH (22:00)
[2022-06-16] MEDS: hydrALAZINE HCL 50 MG TABLET (FP) PO SCH ×3 (06:42→21:31)
[2022-06-16 08:01] LABS: CALCIUM 8.4 mg/dL (8.5-10.1)
[2022-06-16 08:02] LABS: ALBUMIN 3.2 g/dl (3.4-5.0); BLOOD UREA NITROGEN 77.7 mg/dL (7-18)
[2022-06-16 08:05] LABS: CREATININE 4.4 mg/dL (0.55-1.3)
[2022-06-16 08:06] LABS: TOT PROT 6.4 g/dl (6.4-8.2)
[2022-06-16 08:07] LABS: BILIRUBIN,TOTAL 0.4 mg/dL (0.2-1)
[2022-06-16] MEDS: SODIUM ZIRCONIUM CYCLOSILICATE (LOKELMA) 5 GM PACKET PO SCH (11:03)
[2022-06-16] MEDS: POLYETHYLENE GLYCOL (HEALTHYLAX) 3350 17 GM PACKET PO SCH ×2 (11:03→21:31)
[2022-06-16] MEDS: TAMSULOSIN HCL 0.4 MG CAP PO SCH (11:04)
[2022-06-16] MEDS: CEFUROXIME AXETIL 250 MG TABLET PO SCH ×2 (11:04→21:31)
[2022-06-16] MEDS: QUEtiapine FUMARATE 25 MG TABLET PO SCH ×2 (11:04→21:32)
[2022-06-16] MEDS: ASPIRIN 81 MG CHEWABLE TABLETS PO SCH (11:04)
[2022-06-16] MEDS: NEBIVOLOL 5 MG TABLET (FP) PO SCH (11:04)
[2022-06-16] MEDS: PANTOPRAZOLE 40 MG TABLET PO SCH (11:04)
[2022-06-16] MEDS: ESCITALOPRAM OXALATE 10 MG TABLET PO SCH (11:05)
[2022-06-16] MEDS: amLODIPine BESYLATE 10 MG TABLET (FP) PO SCH (11:24)
[2022-06-16] MEDS: FINASTERIDE 5 MG TABLET (FP) PO SCH (11:24)
[2022-06-16] MEDS ORDERED: LACTATED RINGERS SOLUTION 1,000 ML/1,000 ML INFUS.BAG IV SCH (15:15)
[2022-06-16] MEDS: SODIUM CHLORIDE 0.45% 1,000 ML IV SCH (16:58)
[2022-06-16] MEDS: ROSUVASTATIN CA 10 MG TABLET PO SCH (21:31)
[2022-06-16] MEDS: HEPARIN NA (PORCINE) 5,000 UNITS/ML 1ML VIAL SQ SCH (22:02)
[2022-06-17] MEDS: SODIUM CHLORIDE 0.45% 1,000 ML IV SCH ×2 (06:25→18:10)
[2022-06-17] MEDS: hydrALAZINE HCL 50 MG TABLET (FP) PO SCH ×3 (06:25→21:59)
[2022-06-17] MEDS: TAMSULOSIN HCL 0.4 MG CAP PO SCH (08:31)
[2022-06-17 08:37] LABS: ALBUMIN 2.8 g/dl (3.4-5.0); CALCIUM 8.1 mg/dL (8.5-10.1)
[2022-06-17 08:38] LABS: BLOOD UREA NITROGEN 71.7 mg/dL (7-18)
[2022-06-17 08:41] LABS: CREATININE 4.2 mg/dL (0.55-1.3)
[2022-06-17 08:43] LABS: BILIRUBIN,TOTAL 0.3 mg/dL (0.2-1); TOT PROT 5.9 g/dl (6.4-8.2)
[2022-06-17] MEDS: ESCITALOPRAM OXALATE 10 MG TABLET PO SCH (09:00)
[2022-06-17] MEDS: SODIUM ZIRCONIUM CYCLOSILICATE (LOKELMA) 5 GM PACKET PO SCH (09:00)
[2022-06-17] MEDS: PANTOPRAZOLE 40 MG TABLET PO SCH (09:00)
[2022-06-17] MEDS: POLYETHYLENE GLYCOL (HEALTHYLAX) 3350 17 GM PACKET PO SCH ×2 (09:00→22:01)
[2022-06-17] MEDS: CEFUROXIME AXETIL 250 MG TABLET PO SCH ×2 (09:00→22:00)
[2022-06-17] MEDS: NEBIVOLOL 5 MG TABLET (FP) PO SCH (09:01)
[2022-06-17] MEDS: ASPIRIN 81 MG CHEWABLE TABLETS PO SCH (09:01)
[2022-06-17] MEDS: QUEtiapine FUMARATE 25 MG TABLET PO SCH ×2 (09:01→22:01)
[2022-06-17] MEDS: amLODIPine BESYLATE 10 MG TABLET (FP) PO SCH (09:01)
[2022-06-17] MEDS: FINASTERIDE 5 MG TABLET (FP) PO SCH (09:02)
[2022-06-17] MEDS: HEPARIN NA (PORCINE) 5,000 UNITS/ML 1ML VIAL SQ SCH ×2 (09:15→22:01)
[2022-06-17] MEDS: ROSUVASTATIN CA 10 MG TABLET PO SCH (22:00)
[2022-06-18] MEDS: hydrALAZINE HCL 50 MG TABLET (FP) PO SCH ×3 (05:32→22:47)
[2022-06-18 09:37] LABS: BLOOD UREA NITROGEN 64.6 mg/dL (7-18); CALCIUM 8.1 mg/dL (8.5-10.1)
[2022-06-18 09:40] LABS: CREATININE 3.8 mg/dL (0.55-1.3)
[2022-06-18] MEDS: SODIUM ZIRCONIUM CYCLOSILICATE (LOKELMA) 5 GM PACKET PO SCH (09:45)
[2022-06-18] MEDS: POLYETHYLENE GLYCOL (HEALTHYLAX) 3350 17 GM PACKET PO SCH ×2 (09:45→22:47)
[2022-06-18] MEDS: HEPARIN NA (PORCINE) 5,000 UNITS/ML 1ML VIAL SQ SCH ×2 (09:45→22:47)
[2022-06-18] MEDS: TAMSULOSIN HCL 0.4 MG CAP PO SCH (09:46)
[2022-06-18] MEDS: QUEtiapine FUMARATE 25 MG TABLET PO SCH ×2 (09:46→22:47)
[2022-06-18] MEDS: FINASTERIDE 5 MG TABLET (FP) PO SCH (09:46)
[2022-06-18] MEDS: ESCITALOPRAM OXALATE 10 MG TABLET PO SCH (09:46)
[2022-06-18] MEDS: CEFUROXIME AXETIL 250 MG TABLET PO SCH ×2 (09:46→22:47)
[2022-06-18] MEDS: PANTOPRAZOLE 40 MG TABLET PO SCH (09:46)
[2022-06-18] MEDS: NEBIVOLOL 5 MG TABLET (FP) PO SCH (09:47)
[2022-06-18] MEDS: ASPIRIN 81 MG CHEWABLE TABLETS PO SCH (09:47)
[2022-06-18] MEDS: amLODIPine BESYLATE 10 MG TABLET (FP) PO SCH (09:47)
[2022-06-18] MEDS: SODIUM CHLORIDE 0.45% 1,000 ML IV SCH ×2 (10:32→23:23)
[2022-06-18] MEDS: ROSUVASTATIN CA 10 MG TABLET PO SCH (22:47)
[2022-06-19] MEDS: hydrALAZINE HCL 50 MG TABLET (FP) PO SCH ×3 (06:04→21:29)
[2022-06-19] MEDS: TAMSULOSIN HCL 0.4 MG CAP PO SCH (08:53)
[2022-06-19] MEDS: POLYETHYLENE GLYCOL (HEALTHYLAX) 3350 17 GM PACKET PO SCH ×2 (09:01→21:29)
[2022-06-19] MEDS: PANTOPRAZOLE 40 MG TABLET PO SCH (09:01)
[2022-06-19] MEDS: ESCITALOPRAM OXALATE 10 MG TABLET PO SCH (09:01)
[2022-06-19] MEDS: QUEtiapine FUMARATE 25 MG TABLET PO SCH ×2 (09:01→21:29)
[2022-06-19] MEDS: NEBIVOLOL 5 MG TABLET (FP) PO SCH (09:01)
[2022-06-19] MEDS: CEFUROXIME AXETIL 250 MG TABLET PO SCH ×2 (09:01→21:29)
[2022-06-19] MEDS: amLODIPine BESYLATE 10 MG TABLET (FP) PO SCH (09:01)
[2022-06-19] MEDS: HEPARIN NA (PORCINE) 5,000 UNITS/ML 1ML VIAL SQ SCH ×2 (09:02→21:29)
[2022-06-19] MEDS: FINASTERIDE 5 MG TABLET (FP) PO SCH (09:02)
[2022-06-19] MEDS: ASPIRIN 81 MG CHEWABLE TABLETS PO SCH (09:02)
[2022-06-19] MEDS: SODIUM ZIRCONIUM CYCLOSILICATE (LOKELMA) 5 GM PACKET PO SCH (09:53)
[2022-06-19 10:38] LABS: CALCIUM 8.2 mg/dL (8.5-10.1)
[2022-06-19 10:40] LABS: BLOOD UREA NITROGEN 61.6 mg/dL (7-18)
[2022-06-19 10:42] LABS: CREATININE 3.6 mg/dL (0.55-1.3)
[2022-06-19] MEDS: ROSUVASTATIN CA 10 MG TABLET PO SCH (21:29)
[2022-06-20] MEDS: hydrALAZINE HCL 50 MG TABLET (FP) PO SCH ×2 (05:34→14:08)
[2022-06-20] MEDS: SODIUM CHLORIDE 0.45% 1,000 ML IV SCH (05:34)
[2022-06-20] MEDS: TAMSULOSIN HCL 0.4 MG CAP PO SCH (09:32)
[2022-06-20 09:48] VITALS: RESP 22
[2022-06-20] MEDS: ASPIRIN 81 MG CHEWABLE TABLETS PO SCH (10:48)
[2022-06-20] MEDS: QUEtiapine FUMARATE 25 MG TABLET PO SCH (10:49)
[2022-06-20] MEDS: ESCITALOPRAM OXALATE 10 MG TABLET PO SCH (10:49)
[2022-06-20] MEDS: CEFUROXIME AXETIL 250 MG TABLET PO SCH (10:53)
[2022-06-20] MEDS: NEBIVOLOL 5 MG TABLET (FP) PO SCH (10:53)
[2022-06-20] MEDS: PANTOPRAZOLE 40 MG TABLET PO SCH (10:53)
[2022-06-20] MEDS: FINASTERIDE 5 MG TABLET (FP) PO SCH (10:53)
[2022-06-20] MEDS: amLODIPine BESYLATE 10 MG TABLET (FP) PO SCH (10:53)
[2022-06-20] MEDS: HEPARIN NA (PORCINE) 5,000 UNITS/ML 1ML VIAL SQ SCH (10:54)
[2022-06-20] MEDS: SODIUM ZIRCONIUM CYCLOSILICATE (LOKELMA) 5 GM PACKET PO SCH (11:25)
[2022-06-20] MEDS: POLYETHYLENE GLYCOL (HEALTHYLAX) 3350 17 GM PACKET PO SCH (11:38)
[2022-06-20 12:20] VITALS: PULSE 66
[2022-06-20 14:18] VITALS: BP 163/78; TEMP 98.8
[2022-06-20 16:08] LABS: SIZE 2x2 mm (.); WEIGHT <1 mg (.)
== END 2022-06-20 15:59 | DRG 876 ==
LOC: JER 16:28 → JERBED 17:27 → J4S 06-09 00:54 → J7W 06-15 20:11
PROVIDERS: ADMIT Internal Medicine; ATTEND Family Medicine
PROC: BT1FZZZ Fluoroscopy of Left Kidney, Ureter and Bladder (ICD-10-PCS; 2022-06-13)
PROC: 0TCB8ZZ Extirpation of Matter from Bladder, Via Natural or Artificial Opening Endoscopic (ICD-10-PCS; 2022-06-13)
PROC: 0T9D80Z Drainage of Urethra with Drainage Device, Via Natural or Artificial Opening Endoscopic (ICD-10-PCS; principal; 2022-06-13 15:00)
PROC: 0T778DZ Dilation of Left Ureter with Intraluminal Device, Via Natural or Artificial Opening Endoscopic (ICD-10-PCS; 2022-06-13 15:00)
PROC: 0TJB8ZZ Inspection of Bladder, Via Natural or Artificial Opening Endoscopic (ICD-10-PCS; 2022-06-15)
PROC: 0WHR8YZ Insertion of Other Device into Genitourinary Tract, Via Natural or Artificial Opening Endoscopic (ICD-10-PCS; 2022-06-15)
PROC: 0T9B80Z Drainage of Bladder with Drainage Device, Via Natural or Artificial Opening Endoscopic (ICD-10-PCS; 2022-06-15)
DX: F03.C0 Unspecified dementia, severe, without behavioral disturbance, psychotic disturbance, mood disturbance, and anxiety (principal); G93.41 Metabolic encephalopathy; J18.9 Pneumonia, unspecified organism; N39.0 Urinary tract infection, site not specified; G91.2 (Idiopathic) normal pressure hydrocephalus; I24.8 Other forms of acute ischemic heart disease; N17.9 Acute kidney failure, unspecified; N13.0 Hydronephrosis with ureteropelvic junction obstruction; N32.0 Bladder-neck obstruction; N40.0 Benign prostatic hyperplasia without lower urinary tract symptoms; I13.10 Hypertensive heart and chronic kidney disease without heart failure, with stage 1 through stage 4 chronic kidney disease, or unspecified chronic kidney disease; F32.A Depression, unspecified; R77.8 Other specified abnormalities of plasma proteins; E87.5 Hyperkalemia; K80.20 Calculus of gallbladder without cholecystitis without obstruction; E86.0 Dehydration; R33.9 Retention of urine, unspecified; R13.10 Dysphagia, unspecified; I25.10 Atherosclerotic heart disease of native coronary artery without angina pectoris; E78.5 Hyperlipidemia, unspecified; N18.9 Chronic kidney disease, unspecified; R31.9 Hematuria, unspecified; N21.0 Calculus in bladder
CPT/HCPCS: 0241U-QW; 36415; 70450-TC; 71045-TC-FY; 72125-TC; 74176-TC; 76000-TC-FY; 76700-TC; 76775-TC; 80048; 80053; 81003; 82360; 82803; 82962; 83605; 83735; 84100; 84484; 85025; 85027; 85610; 85730; 87040; 87086; 87899; 88300-TC; 93005; 93010; 94760; 97116-GP; 97161-GP; 99285-25; C2617; J1644